=== PATIENT | male | born 1960 | race Caucasian/White ===

== ENCOUNTER 2017-07-17 09:25 | Inpatient (IN) | payer SELFPAY ==
[~2017-07-17] VITALS: Ht 188 cm; Wt 125.8 kg
[2017-07-17] VITALS (21 sets, daily range): BP systolic 110–156; BP diastolic 81–116
[~2017-07-17 09:25] MED LIST: AMIODARONE IV SOLUTION 200 ML IV ONE; MONT10TA21 PO; NEOM10DR6 RIGHT EAR; TRAM50TA2 PO
[2017-07-17] MEDS ORDERED: CATHETER FLUSH 10 ML SYR IV PRN (10:00)
[2017-07-17] MEDS ORDERED: RT-ALBUTEROL/IPRATROPIUM 3 ML (DUONEB) VIAL IH PRN (10:00)
[2017-07-17] MEDS ORDERED: RT-ALBUTEROL/IPRATROPIUM 3 ML (DUONEB) VIAL IH SCH (10:00)
--- NOTE | 2017-07-17 10:21 | Diagnostic Imaging Report ---
INDICATION: Tachycardia, hypoxia. TIME OF EXAM: 10:04 AM No prior studies available for comparison. FINDINGS: There is increased density in the left base obscuring left hemidiaphragm suggestive of left basilar pneumonia. The right lung is clear. No significant effusion is seen. IMPRESSION: Findings suggestive of left basilar pneumonia. Dictated by: Dictated on workstation # [id number]
[2017-07-17] MEDS ORDERED: RT-ALBUINH IH (10:22)
[2017-07-17] MEDS ORDERED: FLUT1BLS IH (10:22)
[2017-07-17] MEDS ORDERED: GUAI100L13 PO (10:22)
[2017-07-17] MEDS ORDERED: ACET-2267 PO (10:23)
[2017-07-17] MEDS ORDERED: PRD10T PO (10:27)
[2017-07-17 11:13] LABS: BASOPHILS % (AUTO) 0 % (0-10); EOSINOPHILS % (AUTO) 0 % (0-10); HEMATOCRIT 55 % (40-54); HEMOGLOBIN 18.2 G/DL (13.3-17.7); LYMPHOCYTES # (AUTO) 1.4 X 10^3 (1.0-4.0); LYMPHOCYTES % (AUTO) 13 % (12-44); MEAN CORPUSCULAR HEMOGLOBIN 29 PG (25-34); MEAN CORPUSCULAR HGB CONC 33 G/DL (32-36); MEAN CORPUSCULAR VOLUME 87 FL (80-99); MEAN PLATELET VOLUME 11.3 FL (7.4-10.4); MONOCYTES # (AUTO) 0.5 X 10^3 (0.0-1.0); MONOCYTES % (AUTO) 4 % (0-12); NEUTROPHILS # (AUTO) 8.8 X 10^3 (1.8-7.8); NEUTROPHILS % (AUTO) 82 % (42-75); PLATELET COUNT 207 10^3/uL (130-400); RED BLOOD COUNT 6.32 10^6/uL (4.35-5.85); RED CELL DISTRIBUTION WIDTH 16.2 % (10.0-14.5); WHITE BLOOD COUNT 10.7 10^3/uL (4.3-11.0)
[2017-07-17] MEDS ORDERED: meTOprolol 5 MG/5 ML (LOPRESSOR) VIAL IV NR (11:15)
--- NOTE | 2017-07-17 11:15 | History & Physicial (CHS) ---
HPI History of Present Illness: 56 year old male who was seen this morning in Pulmonology Clinic by Dr. Longo and found to be tachycardic with a HR in the 150's and hypoxic with sats in the 70's on room air. The patient had been referred to see Dr. Longo after being seen by Lg Tavera APRN on Friday and noted to be complaining of increased sinus drainage and difficulty breathing. Documented vital signs include HR 133 and O2 sat 83% on room air. Patient states he had his sat checked by multiple monitors and that several of them had sats in the 70's, but "they found one that would read in the 80's". Pt had home oxygen ordered, but reports that he did not pick it up "because he is planning on going back to work". Patient reports that he is actually feeling much better today than he has in the last few days. He denies chest pain or pressure, feeling more short of breath than normal, fever, chills, productive cough. Denies cardiac history, other than reports he was briefly on a diuretic for HTN, but it was stopped because he didn't need it any more. He reports that he is quite healthy and that he "got COPD from having his neck surgery in 1997". Patient reports he had a cervical fusion and he was a difficult intubation and has had trouble breathing since then. Patient is a still currently a smoker, but states that he has to "smoke a few a day" in order to be able to breathe. Clinic notes also reveal a remote history of IV drug abuse. Source: patient, RN/MD, RN notes reviewed, old records, spouse Exam Limitations: no limitations Date seen by provider: Jul 17, 2017 Time Seen by Provider: 09:50 Attending Physician Jessica Sanchez DO [facility] [place] Consult Dr. Longo, Pulmonology Dr. Rankin, Cardiology Date of Admission Jul 17, 2017 at 09:25 Home Medications Home Medications Reviewed patient Home Medication Reconciliation performed by pharmacy medication reconciliations spring manufacturing set up technician and/or nursing. Patients Allergies have been reviewed. Allergies Coded Allergies: gabapentin (Verified Adverse Reaction, Mild, UPSET STOMACH, 07/17/17) ARJ-[id number]-Jyjbys Hx Patient Social History Marrital Status: Living Status: lives at home with Employed/Student: unemployed Alcohol Use: Denies Use Recreational Drug Use: No (history of previous IV drug use in the remote past) Smoking Status: Current Everyday Smoker Type Used: Cigarettes, Electronic/Vapor Recent Foreign Travel: No Contact w/other who traveled: No Recent Hopitalizations: No Recent Infectious Disease Expo: No Physical Abuse Screen: No Sexual Abuse: No Immunizations Up To Date Tetanus Booster (TDap): Unknown Past Medical History Remote history of IV drug abuse COPD Tobacco abuse Family Medical History Significant Family History: Heart Disease, Cancer, CAD Under 55 Years Old Review of Systems (CHC) Constitutional: no symptoms reported EENTM: no symptoms reported Respiratory: see HPI, dyspnea on exertion, wheezing Cardiovascular: no symptoms reported, No chest pain, No edema, No Hx of Intervention, No palpitations Gastrointestinal: no symptoms reported Genitourinary: no symptoms reported Musculoskeletal: no symptoms reported Skin: no symptoms reported Psychiatric/Neurological: No Symptoms Reported Reviewed Test Results Reviewed Test Results Lab Laboratory Tests Test 07/17/17 10:48 07/17/17 15:00 07/17/17 15:25 07/17/17 15:30 Range/Units White Blood Count 10.7 4.3-11.0 10^3/uL Red Blood Count 6.32 H 4.35-5.85 10^6/uL Hemoglobin 18.2 H 13.3-17.7 G/DL Hematocrit 55 H 40-54 % Mean Corpuscular Volume 87 80-99 FL Mean Corpuscular Hemoglobin 29 25-34 PG Mean Corpuscular Hemoglobin Concent 33 32-36 G/DL Red Cell Distribution Width 16.2 H 10.0-14.5 % Platelet Count 207 130-400 10^3/uL Mean Platelet Volume 11.3 H 7.4-10.4 FL Neutrophils (%) (Auto) 82 H 42-75 % Lymphocytes (%) (Auto) 13 12-44 % Monocytes (%) (Auto) 4 0-12 % Eosinophils (%) (Auto) 0 0-10 % Basophils (%) (Auto) 0 0-10 % Neutrophils # (Auto) 8.8 H 1.8-7.8 X 10^3 Lymphocytes # (Auto) 1.4 1.0-4.0 X 10^3 Monocytes # (Auto) 0.5 0.0-1.0 X 10^3 Eosinophils # (Auto) 0.0 0.0-0.3 10^3/uL Basophils # (Auto) 0.0 0.0-0.1 10^3/uL Sodium Level 139 135-145 MMOL/L Potassium Level 4.1 3.6-5.0 MMOL/L Chloride Level 101 98-107 MMOL/L Carbon Dioxide Level 30 21-32 MMOL/L Anion Gap 8 5-14 MMOL/L Blood Urea Nitrogen 9 7-18 MG/DL Creatinine 0.88 0.60-1.30 MG/DL Estimat Glomerular Filtration Rate > 60 BUN/Creatinine Ratio 10 Glucose Level 125 H 70-105 MG/DL Lactic Acid Level 0.95 0.50-2.00 MMOL/L Calcium Level 9.1 8.5-10.1 MG/DL Phosphorus Level 2.9 2.3-4.7 MG/DL Magnesium Level 2.1 1.8-2.4 MG/DL Total Bilirubin 0.7 0.1-1.0 MG/DL Aspartate Amino Transf (AST/SGOT) 26 5-34 U/L Alanine Aminotransferase (ALT/SGPT) 39 0-55 U/L Alkaline Phosphatase 62 40-136 U/L Troponin I < 0.30 <0.30 NG/ML B-Type Natriuretic Peptide 72.7 <100.0 PG/ML Total Protein 7.2 6.4-8.2 GM/DL Albumin 4.1 3.2-4.5 GM/DL Blood Gas Puncture Site RIGHT RADIAL LEFT RADIAL Blood Gas Patient Temperature 98.2 98.0 Arterial Blood pH 7.32 *L 7.30 *L 7.37-7.43 Arterial Blood Partial Pressure CO2 73 *H 69 H 35-45 MMHG Arterial Blood Partial Pressure O2 37 *L 74 L 79-93 MMHG Arterial Blood HCO3 36 H 33 H 23-27 MMOL/L Arterial Blood Total CO2 38.6 H 35.2 H 21.0-31.0 MMOL/L Arterial Blood Oxygen Saturation 67 L 94 94-100 % Arterial Blood Base Excess 10.1 H 6.8 H -2.5-2.5 MMOL/L Jair Test POSITIVE POSITIVE Blood Gas Ventilator Setting NO NO Blood Gas Inspired Oxygen 4L 4L Urine Color YELLOW Urine Clarity CLEAR Urine pH 6 5-9 Urine Specific [place] 1.015 L 1.016-1.022 Urine Protein 2+ H NEGATIVE Urine Glucose (UA) NEGATIVE NEGATIVE Urine Ketones NEGATIVE NEGATIVE Urine Nitrite NEGATIVE NEGATIVE Urine Bilirubin NEGATIVE NEGATIVE Urine Urobilinogen NORMAL NORMAL MG/DL Urine Leukocyte Esterase NEGATIVE NEGATIVE Urine RBC (Auto) NEGATIVE NEGATIVE Urine RBC NONE /HPF Urine WBC NONE /HPF Urine Crystals NONE /LPF Urine Bacteria NONE /HPF Urine Casts NONE /LPF Urine Mucus SMALL H /LPF Urine Culture Indicated NO Test 07/17/17 15:42 07/17/17 18:44 Range/Units Troponin I < 0.30 <0.30 NG/ML Blood Gas Puncture Site LEFT RADIAL Blood Gas Patient Temperature 98.5 Arterial Blood pH 7.34 *L 7.37-7.43 Arterial Blood Partial Pressure CO2 70 H 35-45 MMHG Arterial Blood Partial Pressure O2 101 H 79-93 MMHG Arterial Blood HCO3 37 H 23-27 MMOL/L Arterial Blood Total CO2 38.8 H 21.0-31.0 MMOL/L Arterial Blood Oxygen Saturation 98 94-100 % Arterial Blood Base Excess 10.7 H -2.5-2.5 MMOL/L Jair Test POSITIVE Blood Gas Ventilator Setting NO Blood Gas Inspired Oxygen 50% BIPAP Radiology Date of Exam: 07/17/17 CHEST 1 VIEW, AP/PA ONLY INDICATION: Tachycardia, hypoxia. TIME OF EXAM: 10:04 AM No prior studies available for comparison. FINDINGS: There is increased density in the left base obscuring left hemidiaphragm suggestive of left basilar pneumonia. The right lung is clear. No significant effusion is seen. IMPRESSION: Findings suggestive of left basilar pneumonia. EKG: Sinus tachycardia, consistent with telemetry that shows sinus tach with rate in the 140's Physical Exam-(CHC) Physical Exam Vital Signs VS - Last 72 Hours, by Label 07/17/17 07/17/17 07/17/17 07/17/17 09:30 09:30 09:35 09:45 Temp 97.8 Pulse 148 149 148 Resp 23 B/P (MAP) 126/114 (118) 153/105 (121) Pulse Ox 92 94 O2 Delivery Nasal Cannula Nasal Cannula Nasal Cannula O2 Flow Rate 4.00 4.00 4.00 07/17/17 07/17/17 07/17/17 07/17/17 10:00 10:15 10:30 11:00 Pulse 147 147 151 147 Resp 25 25 25 19 B/P (MAP) 136/104 (115) 156/116 (129) 150/114 (126) 127/108 (114) Pulse Ox 94 94 94 93 O2 Delivery Nasal Cannula Nasal Cannula Nasal Cannula Nasal Cannula O2 Flow Rate 4.00 4.00 4.00 4.00 07/17/17 07/17/17 07/17/17 07/17/17 11:20 12:00 12:00 13:00 Temp 97.6 Pulse 146 147 Resp 25 26 B/P (MAP) 123/88 (100) 119/88 (98) Pulse Ox 98 93 90 O2 Delivery Nasal Cannula Nasal Cannula Nasal Cannula Nasal Cannula O2 Flow Rate 4.00 4.00 4.00 4.00 07/17/17 07/17/17 07/17/17 07/17/17 13:00 14:00 15:00 15:45 Pulse 147 147 146 Resp 28 26 B/P (MAP) 125/94 (104) 123/102 (109) Pulse Ox 91 93 O2 Delivery Nasal Cannula Nasal Cannula Nasal Cannula O2 Flow Rate 4.00 4.00 4.00 07/17/17 07/17/17 07/17/17 07/17/17 15:55 16:00 16:09 17:00 Temp 98.0 Pulse 154 152 Resp 25 13 B/P (MAP) 125/87 (100) 120/89 (99) Pulse Ox 93 91 O2 Delivery Nasal Cannula Nasal Cannula Nasal Cannula Nasal Cannula O2 Flow Rate 4.00 4.00 4.00 4.00 07/17/17 07/17/17 17:28 18:00 Pulse 149 146 Resp 22 8 B/P (MAP) 114/87 (96) Pulse Ox 96 93 O2 Delivery Nasal Cannula O2 Flow Rate 50.00 4.00 Capillary Refill : General Appearance: WD/WN, no apparent distress, obese Eyes: Bilateral Eye Normal Inspection, Bilateral Eye PERRL, Bilateral Eye EOMI HEENT: PERRL/EOMI, TMs normal, No scleral icterus (R), No scleral icterus (L), No photophobia Neck: non-tender, full range of motion, supple, normal inspection Respiratory: chest non-tender, decreased breath sounds, wheezing Cardiovascular: normal peripheral pulses, regular rate, rhythm, no edema, no gallop, no murmur, tachycardia Peripheral Pulses: 2+ Dorsalis Pedis (R), 2+ Left Dors-Pedis (L), 2+ Radial Pulses (R), 2+ Radial Pulses (L) Gastrointestinal: normal bowel sounds, non tender, soft, no organomegaly, no pulsatile mass, No guarding, No rebound Rectal: deferred Back: no CVA tenderness, no vertebral tenderness Extremities: normal range of motion, non-tender, normal inspection, no pedal edema, no calf tenderness, slow capillary refill Neurologic/Psychiatric: masticator II-XII nml as tested, no motor/sensory deficits, alert, normal mood/affect, oriented x 3 Skin: warm/dry, pallor Lymphatic: no adenopathy Assessment/Plan Assessment/Plan Admission Dx acute on chronic respiratory failure hypoxia tachyarrhythmia hypertension copd pneumonia tobacco abuse obesity Admission Status: Inpatient Order (span 2 midnights) Reason for Inpatient Admission: dependence on supplemental oxygen need for medical stabilization and treatment Assessment & Plan acute on chronic respiratory failure 07/17 -admit to ICU -consult to Dr. Longo for pulmonary management hypoxia 07/17 -consult to Dr. Longo for pulmonary management tachyarrhythmia 07/17 -consult to Dr. Rankin for cardiac management -currently sinus tach, will give 5 mg metoprolol and attempt rate control hypertension 07/17 -metoprolol given for rate control, will see if that brings pressure down -cardiology consult as above -asymptomatic copd 07/17 -consult to Dr. Longo as above pneumonia 07/17 -evidence suggestive of PNA on CXR -empiric abx started and will trend labs tobacco abuse 07/17 -cessation recommended obesity The patient is critically ill and requires an ICU level of care at this time for management of his resp failure and tachyarrthmia. Will require more than two nights of inpatient care for medical stabilization and treatment. Copy Copies To 1: [facility]/JESSICA MONTES DO Jul 17, 2017 11:15
[2017-07-17] MEDS: methylPREDNISolone 40 MG/ML (Solu-MEDROL) VIAL IV SCH ×3 (11:23→23:38)
[2017-07-17 11:35] LABS: ALANINE AMINOTRANSFERASE 39 U/L (0-55); ALBUMIN 4.1 GM/DL (3.2-4.5); ALKALINE PHOSPHATASE 62 U/L (40-136); BILIRUBIN,TOTAL 0.7 MG/DL (0.1-1.0); BUN/CREATININE RATIO 10; CALCIUM 9.1 MG/DL (8.5-10.1); CARBON DIOXIDE 30 MMOL/L (21-32); CHLORIDE 101 MMOL/L (98-107); CREATININE SERUM 0.88 MG/DL (0.60-1.30); GFR ESTIMATED > 60; GLUCOSE 125 MG/DL (70-105); MAGNESIUM 2.1 MG/DL (1.8-2.4); PHOSPHORUS 2.9 MG/DL (2.3-4.7); POTASSIUM 4.1 MMOL/L (3.6-5.0); SODIUM 139 MMOL/L (135-145); TOTAL PROTEIN 7.2 GM/DL (6.4-8.2)
[2017-07-17] MEDS: VERAPAMIL 5 MG/2 ML (CALAN) VIAL IV SCH ×5 (13:18→23:38)
[2017-07-17] MEDS: AMIODARONE IV SOLUTION 200 ML IV SCH ×2 (13:18→19:20)
[2017-07-17] MEDS: CATHETER FLUSH 10 ML SYR IV SCH ×2 (14:00→20:30)
[2017-07-17] MEDS ORDERED: RT-ALBUTEROL SULF 2.5 MG/3 ML PRE-MIX VIAL IH SCH (14:30)
[2017-07-17 15:10] LABS: ABG BASE EXCESS 10.1 MMOL/L (-2.5-2.5); ABG OXYGEN SATURATION 67 % (94-100); ABG TCO2 38.6 MMOL/L (21.0-31.0)
[2017-07-17 15:16] LABS: ABG PCO2 73 MMHG (35-45); ABG PH 7.32 (7.37-7.43); ABG PO2 37 MMHG (79-93); ALLENS TEST POSITIVE; INSPIRED O2 4L; PATIENT TEMP 98.2; VENTILATOR NO
[2017-07-17 15:40] LABS: ABG BASE EXCESS 6.8 MMOL/L (-2.5-2.5); ABG OXYGEN SATURATION 94 % (94-100); ABG PCO2 69 MMHG (35-45); ABG PO2 74 MMHG (79-93); ABG TCO2 35.2 MMOL/L (21.0-31.0)
[2017-07-17 15:45] LABS: ALLENS TEST POSITIVE; INSPIRED O2 4L; VENTILATOR NO
[2017-07-17] MEDS ORDERED: INFLUENZA TRIvalent 2017-2018 0.5 ML/45 MCG SYR IM ONE (15:45)
[2017-07-17 15:58] LABS: BILIRUBIN,URINE NEGATIVE (NEGATIVE); CLARITY,URINE CLEAR; COLOR,URINE YELLOW; GLUCOSE, URINE (UA) NEGATIVE (NEGATIVE); KETONES,URINE NEGATIVE (NEGATIVE); LEUKOCYTE ESTERASE ,URINE NEGATIVE (NEGATIVE); NITRITE,URINE NEGATIVE (NEGATIVE); PH,URINE 6 (5-9); PROTEIN,URINE 2+ (NEGATIVE); UROBILINOGEN,URINE NORMAL (NORMAL)
--- NOTE | 2017-07-17 16:55 | Consultation-Cardiology ---
HPI-Cardiology Cardiology Consultation: Date of Consultation 07/17/17 Date of Admission Attending Physician Jessica Sanchez DO Admitting Physician [place] Consulting Physician Marisol RANKIN MD HPI: Time Seen by Provider: 12:00 Chief Complaint: Shortness of breath, tachycardia This is a 56-year-old gentleman who is a patient of [facility] and Dr. Longo. He was directly admitted from Dr. Longo's office for significant shortness of breath. The patient has history of active smoking and COPD. Patient denies significant fever. He also denies any significant cardiac history. He has history of hypertension. His shortness of breath started a few days ago. Significant orthopnea. No significant weight gain. Denies any chest pain, palpitation, syncope or near syncope. Patient also denied any significant palpitations recently. Review of Systems-Cardiology Review of Systems Constitutional: No As described under HPI, No no symptoms reported, No chills, No fever, No lightheadedness, No malaise, No tiredness, No weight loss, No weight gain, No other Eyes: No As described under HPI, No no symptoms reported, No blindness, No blurred vision, No contact lenses, No drainage, No decreased acuity, No foreign body sensation, No glasses, No inflammation, No pain, No photophobia, No previous injury, No shadows, No tunnel vision, No other, No vision change Ears/Nose/Throat: No As described under HPI, No no symptoms reported, No chronic hearing loss, No epistaxis, No ear discharge, No ear pain, No loose teeth, No mouth pain, No mouth swelling, No nasal drainage, No nose pain, No recent hearing loss, No throat pain, No throat swelling, No ulcerations, No other Respiratory: orthopnea, shortness of breath Cardiovascular: No no symptoms reported, No As described under HPI, No chest pain, No edema, No irregular heart rate, No lightheadedness, palpitations, No syncope, No other Gastrointestinal: No no symptoms reported, No As described under HPI, No abdomen distended, No abdominal pain, No blood streaked bowels, No constipation , No diarrhea, No difficulty swallowing, No nausea, No poor appetite, No poor fluid intake, No rectal bleeding, No vomiting, No other, No nausea/vomiting/ diarrhea, No stool coloration changes Genitourinary: No no symptoms reported, No As described under HPI, No burning, No dysuria, No discharge, No frequency, No flank pain, No hematuria, No incontinence, No pain, No urgency, No other, No urine frequency changes, No urine coloration changes Musculoskeletal: No no symptoms reported, No As describe under HPI, No back pain, No gout, No joint pain, No joint swelling, No muscle pain, No muscle stiffness, No neck pain, No other Skin: No no symptoms reported, No As described under HPI, No change in color, No change in hair/nails, No dryness, No lesions, No lumps, No rash, No other, No skin related problems, No ulcerations, No rash on exposed areas, No ulcerations on exposed areas Psychiatric/Neurological: No no symptoms reported, No As described under HPI, No anxiety, No depression, No emotional problems, No headache, No numbness, No pre-existing deficit, No seizure, No tingling, No tremors, No weakness, No other , No focal weakness, No syncope Hematologic: No no symptoms reported, No As described under HPI, No anemia, No blood clots, No easy bleeding, No easy bruising, No swollen glands, No other, No bleeding abnormalities [id number] Hx Patient Social History Alcohol Use: Denies Use Recreational Drug Use: No Smoking Status: Current Everyday Smoker Type Used: Cigarettes Recent Foreign Travel: No Recent Infectious Disease Expo: No Physical Abuse Screen: No Sexual Abuse: No Past Medical History PMH As described under Assessment. Allergies and Home Medications Allergies Coded Allergies: gabapentin (Verified Adverse Reaction, Mild, UPSET STOMACH, 07/17/17) Home Medications Acetaminophen 500 Mg Tablet, 500-1,000 MG PO Q6H PRN for PAIN-MILD, (Reported) Albuterol Sulfate 1 Puff Puff, 2 PUFF IH Q4H PRN for SHORTNESS OF BREATH, ( Reported) 1 PUFF = 90 MCG Fluticasone/Vilanterol 1 Each Blst.w.dev, 1 PUFF IH DAILY, (Reported) Guaifenesin 100 Mg/5 Ml Liquid, 10 ML PO Q4H PRN for COUGH, (Reported) Prednisone 10 Mg Tab, 10 MG PO UD, (Reported) TAKE 4 TABLETS DAILY X 4 DAYS, THEN TAKE 3 TABS DAILY X 3 DAYS, THEN TAKE 2 TABS DAILY X 2 DAYS THEN TAKE 1 TAB DAILY FILLED 07-14-17 Patient Home Medication List Home Medication List Reviewed: Yes Physical Exam-Cardiology Physical Exam Vital Signs/I&O Vital Sign - Last 12Hours 07/17/17 07/17/17 07/17/17 07/17/17 09:30 09:30 09:35 09:45 Temp 97.8 Pulse 148 149 148 Resp 23 B/P (MAP) 126/114 (118) 153/105 (121) Pulse Ox 92 94 O2 Delivery Nasal Cannula Nasal Cannula Nasal Cannula O2 Flow Rate 4.00 4.00 4.00 07/17/17 07/17/17 07/17/17 07/17/17 10:00 10:15 10:30 11:00 Pulse 147 147 151 147 Resp 25 B/P (MAP) 136/104 (115) 156/116 (129) 150/114 (126) 127/108 (114) Pulse Ox 94 94 94 93 O2 Delivery Nasal Cannula Nasal Cannula Nasal Cannula Nasal Cannula O2 Flow Rate 4.00 4.00 4.00 4.00 07/17/17 07/17/17 07/17/17 07/17/17 11:20 12:00 13:00 13:00 Pulse 146 147 147 Resp B/P (MAP) 123/88 (100) 119/88 (98) Pulse Ox 98 93 90 O2 Delivery Nasal Cannula Nasal Cannula Nasal Cannula O2 Flow Rate 4.00 4.00 4.00 07/17/17 07/17/17 07/17/17 07/17/17 14:00 15:00 15:45 15:55 Temp 98.0 Pulse 147 146 Resp B/P (MAP) 125/94 (104) 123/102 (109) Pulse Ox 91 93 O2 Delivery Nasal Cannula Nasal Cannula Nasal Cannula Nasal Cannula O2 Flow Rate 4.00 4.00 4.00 4.00 07/17/17 16:09 O2 Delivery Nasal Cannula O2 Flow Rate 4.00 Capillary Refill : Constitutional: No appears stated age, AAO x 3, No apparent distress, No PERRL , No well-developed, No well-nourished, No other HEENT: PERRL, No normal ENT inspection, No TMs normal, No pharynx normal, No scleral icterus (R), No scleral icterus (L), No pale conjunctivae (R), No pale conjunctivae (L), No photophobia, No TM abnormal (R), No TM abnormal (L), No pharyngeal erythema, No tonsillar exudate, No other, No discharge, No EOMI, hearing is well preserved, No hard of hearing, oral hygience is good, No ulceration, No xanthelasmas are seen Neck: No non-tender, No full range of motion, No supple, No normal inspection, No carotid bruit, No limited range of motion, No lymphadenopathy (R), No lymphadenopathy (L), No tender lateral, No tender midline, No thyromegaly, No other, carotid pulses are 2 + bilaterally, No with good upstrokes Respiratory: accessory muscle use, No respiratory distress, No chest tender, No chest expansion is symmetric, chest is bilaterally symmetric, No lungs clear to percussion, No lungs clear to auscultation, No crackles, No rhonchi, No rales , No stridor, wheezing, No pleural rub, No other Cardiovascular: regular rate-rhythm, No irregularly irregular, No extra beats, No parasternal heave is noted, No JVD, No edema, No bradycardia, tachycardia, No point of maximal impulse, No cardiac thrills are palpable, S1 and S2, No gallop/S3, No gallop/S4, No diastolic murmur, No systolic murmur, No friction rub, No click, No other Gastrointestinal: No tender, No soft, No round, No distended, No pulsatile mass , No organomegaly, No guarding, No rebound, No tenderness, No hernia, No mass, No audible bowel sounds, No abnormal bowel sounds, No abdominal bruits, No spleenomegaly, No other Rectal: deferred Extremities: normal range of motion, non-tender, normal inspection, No pedal edema, No calf tenderness, No normal capillary refill, No pelvis stable, No calf tenderness, No inflammation, No pedal edema, No slow capillary refill, No swelling, No other, No abrasion, No clubbing, No cyanosis, No ecchymosis, No laceration, No no lower extremity edema bilateral, No significant edema, No tenderness, No wound Neurologic/Psychiatric: No pump press operator II-XII nml as tested, No no motor/sensory deficits, alert, normal mood/affect, oriented x 3, No abnormal cerebellar tests , No abnormal pump press operator II-XII, No abnormal gait, No aphasia, No EOM palsy, No facial droop, No motor weakness, No sensory deficit, No depressed affect, No disoriented x 3, No other, No grossly intact, power is 5/5 both on sides Skin: No normal color, No warm/dry, No cyanosis, No cool, No diaphoresis, No damp, No ecchymosis, No jaundice, No mottled, No pallor, No rash, No tattoos/ piercings, No ulcerations, No rash on exposed areas, No ulcerations on exposed areas, No other Data Review Labs Laboratory Tests 07/17/17 10:48: White Blood Count 10.7, Red Blood Count 6.32H, Hemoglobin 18.2H, Hematocrit 55H , Mean Corpuscular Volume 87, Mean Corpuscular Hemoglobin 29, Mean Corpuscular Hemoglobin Concent 33, Red Cell Distribution Width 16.2H, Platelet Count 207, Mean Platelet Volume 11.3H, Neutrophils (%) (Auto) 82H, Lymphocytes (%) (Auto) 13, Monocytes (%) (Auto) 4, Eosinophils (%) (Auto) 0, Basophils (%) (Auto) 0, Neutrophils # (Auto) 8.8H, Lymphocytes # (Auto) 1.4, Monocytes # (Auto) 0.5, Eosinophils # (Auto) 0.0, Basophils # (Auto) 0.0, Sodium Level 139, Potassium Level 4.1, Chloride Level 101, Carbon Dioxide Level 30, Anion Gap 8, Blood Urea Nitrogen 9, Creatinine 0.88, Estimat Glomerular Filtration Rate > 60, BUN/ Creatinine Ratio 10, Glucose Level 125H, Lactic Acid Level 0.95, Calcium Level 9.1, Phosphorus Level 2.9, Magnesium Level 2.1, Total Bilirubin 0.7, Aspartate Amino Transf (AST/SGOT) 26, Alanine Aminotransferase (ALT/SGPT) 39, Alkaline Phosphatase 62, Troponin I < 0.30, B-Type Natriuretic Peptide 72.7, Total Protein 7.2, Albumin 4.1 07/17/17 15:00: Blood Gas Puncture Site RIGHT RADIAL, Blood Gas Patient Temperature 98.2, Arterial Blood pH 7.32*L, Arterial Blood Partial Pressure CO2 73*H, Arterial Blood Partial Pressure O2 37*L, Arterial Blood HCO3 36H, Arterial Blood Total CO2 38.6H, Arterial Blood Oxygen Saturation 67L, Arterial Blood Base Excess 10.1H, Jair Test POSITIVE, Blood Gas Ventilator Setting NO, Blood Gas Inspired Oxygen 4L 07/17/17 15:25: Blood Gas Puncture Site LEFT RADIAL, Blood Gas Patient Temperature 98.0, Arterial Blood pH 7.30*L, Arterial Blood Partial Pressure CO2 69H, Arterial Blood Partial Pressure O2 74L, Arterial Blood HCO3 33H, Arterial Blood Total CO2 35.2H, Arterial Blood Oxygen Saturation 94, Arterial Blood Base Excess 6.8H , Jair Test POSITIVE, Blood Gas Ventilator Setting NO, Blood Gas Inspired Oxygen 4L 07/17/17 15:30: Urine Color YELLOW, Urine Clarity CLEAR, Urine pH 6, Urine Specific [place] 1.015L, Urine Protein 2+H, Urine Glucose (UA) NEGATIVE, Urine Ketones NEGATIVE, Urine Nitrite NEGATIVE, Urine Bilirubin NEGATIVE, Urine Urobilinogen NORMAL, Urine Leukocyte Esterase NEGATIVE, Urine RBC (Auto) NEGATIVE, Urine RBC NONE, Urine WBC NONE, Urine Crystals NONE, Urine Bacteria NONE, Urine Casts NONE, Urine Mucus SMALLH, Urine Culture Indicated NO 07/17/17 15:42: Troponin I < 0.30 ECG Impression ECG Comment Atrial flutter with 2-1 AV block. A/P-Cardiology Assessment/Admission Diagnosis Shortness of breath, COPD exacerbation, Possible pneumonia, Tachycardia, atrial flutter, Active smoking Plan Respiratory treatment, IV antibiotics, prednisone for COPD exacerbation and pneumonia. Patient is hypoxic with oxygen saturation of 90 percent on nasal cannula. Chest x-ray shows possible basilar pneumonia. No significant CHF. Patient is euvolemic and unlikely in congestive heart failure. Very low BNP. Echocardiogram shows normal LV function significant valvular heart disease. Rule out ACS with serial troponin. Atrial flutter with 2-1 AV block. Started on amiodarone infusion and verapamil IV every 3 hours. If continues to be in atrial flutter until tomorrow will likely perform transesophageal echocardiogram with cardioversion. We'll also start Eliquis today. Smoking cessation was strongly recommended. At length with the patient and family. Thank you for your consultation. Please call me if you have any questions. Chino Rankin MD, FACP, FACC, FSCAI, FHRS, CCDS Interventional Cardiology Cardiac Electrophysiology Vascular Medicine and Endovascular Interventions Clinical Quality Measures DVT/VTE Risk/Contraindication: Risk Factor Score Per Nursin RFS Level Per Nursing on Admit: 4+=Very High Marisol RANKIN MD Jul 17, 2017 4:55 pm
[2017-07-17 18:54] LABS: ABG BASE EXCESS 10.7 MMOL/L (-2.5-2.5); ABG OXYGEN SATURATION 98 % (94-100); ABG PCO2 70 MMHG (35-45); ABG PO2 101 MMHG (79-93); ABG TCO2 38.8 MMOL/L (21.0-31.0)
[2017-07-17 18:56] LABS: ABG PH 7.34 (7.37-7.43); ALLENS TEST POSITIVE; INSPIRED O2 50% BIPAP; PATIENT TEMP 98.5; VENTILATOR NO
[2017-07-17] MEDS ORDERED: AMIODARONE IV SOLUTION 200 ML IV ONE ×2 (19:40→23:30)
[2017-07-17] MEDS: APIXABAN 5 MG (ELIQUIS) TABLET PO SCH (20:30)
[2017-07-17] MEDS: AZITHROMYCIN INJECTION 500 MG in NS (IVPB) 250 ML IV SCH (20:30)
[2017-07-17] MEDS ORDERED: RT-LEVALBUTEROL (XOPENEX) 1.25 MG/3 ML NEB NON-FORMULARY INH SCH (22:00)
[2017-07-17] MEDS ORDERED: meTOprolol 5 MG/5 ML (LOPRESSOR) VIAL IV ONE (23:30)
[2017-07-18] VITALS (24 sets, daily range): BP systolic 99–150; BP diastolic 66–98
[2017-07-18] MEDS: VERAPAMIL 5 MG/2 ML (CALAN) VIAL IV SCH ×3 (03:10→09:04)
[2017-07-18 03:49] LABS: ABG BASE EXCESS 6.8 MMOL/L (-2.5-2.5); ABG OXYGEN SATURATION 98 % (94-100); ABG PCO2 64 MMHG (35-45); ABG PO2 100 MMHG (79-93); ABG TCO2 34.5 MMOL/L (21.0-31.0)
[2017-07-18 03:52] LABS: ABG PH 7.33 (7.37-7.43); ALLENS TEST YES-POS; INSPIRED O2 40%; VENTILATOR NO
[2017-07-18 03:53] LABS: PATIENT TEMP 98.9
[2017-07-18 04:17] LABS: BASOPHILS % (AUTO) 0 % (0-10); EOSINOPHILS % (AUTO) 0 % (0-10); HEMATOCRIT 55 % (40-54); HEMOGLOBIN 18.2 G/DL (13.3-17.7); LYMPHOCYTES # (AUTO) 1.3 X 10^3 (1.0-4.0); LYMPHOCYTES % (AUTO) 11 % (12-44); MEAN CORPUSCULAR HEMOGLOBIN 29 PG (25-34); MEAN CORPUSCULAR HGB CONC 33 G/DL (32-36); MEAN CORPUSCULAR VOLUME 89 FL (80-99); MEAN PLATELET VOLUME 11.1 FL (7.4-10.4); MONOCYTES # (AUTO) 0.7 X 10^3 (0.0-1.0); MONOCYTES % (AUTO) 5 % (0-12); NEUTROPHILS # (AUTO) 10.6 X 10^3 (1.8-7.8); NEUTROPHILS % (AUTO) 84 % (42-75); PLATELET COUNT 215 10^3/uL (130-400); RED BLOOD COUNT 6.23 10^6/uL (4.35-5.85); RED CELL DISTRIBUTION WIDTH 16.9 % (10.0-14.5); WHITE BLOOD COUNT 12.6 10^3/uL (4.3-11.0)
[2017-07-18 04:31] LABS: BUN/CREATININE RATIO 14; CALCIUM 8.9 MG/DL (8.5-10.1); CARBON DIOXIDE 28 MMOL/L (21-32); CHLORIDE 103 MMOL/L (98-107); CREATININE SERUM 0.93 MG/DL (0.60-1.30); GFR ESTIMATED > 60; GLUCOSE 123 MG/DL (70-105); MAGNESIUM 2.4 MG/DL (1.8-2.4); PHOSPHORUS 3.5 MG/DL (2.3-4.7); POTASSIUM 5.1 MMOL/L (3.6-5.0); SODIUM 139 MMOL/L (135-145)
--- NOTE | 2017-07-18 06:04 | Pulmonary Consultation ---
History of Present Illness History of Present Illness Date of Consultation 07/18/17 05:56 Date of Admission Allergies and Home Medications Allergies Coded Allergies: gabapentin (Verified Adverse Reaction, Mild, UPSET STOMACH, 07/17/17) Home Medications Acetaminophen 500 Mg Tablet, 500-1,000 MG PO Q6H PRN for PAIN-MILD, (Reported) Albuterol Sulfate 1 Puff Puff, 2 PUFF IH Q4H PRN for SHORTNESS OF BREATH, ( Reported) 1 PUFF = 90 MCG Fluticasone/Vilanterol 1 Each Blst.w.dev, 1 PUFF IH DAILY, (Reported) Guaifenesin 100 Mg/5 Ml Liquid, 10 ML PO Q4H PRN for COUGH, (Reported) Prednisone 10 Mg Tab, 10 MG PO UD, (Reported) TAKE 4 TABLETS DAILY X 4 DAYS, THEN TAKE 3 TABS DAILY X 3 DAYS, THEN TAKE 2 TABS DAILY X 2 DAYS THEN TAKE 1 TAB DAILY FILLED 07-14-17 Past Ijotayu-Jpneew-Fmefdt Hx Patient Social History Alcohol Use: Denies Use Recreational Drug Use: No (history of previous IV drug use in the remote past) Smoking Status: Current Everyday Smoker Type Used: Cigarettes, Electronic/Vapor Recent Foreign Travel: No Contact w/Someone Who Travel: No Recent Infectious Disease Expo: No Recent Hopitalizations: No Immunizations Up To Date Tetanus Booster (TDap): Unknown Seasonal Allergies Seasonal Allergies: Yes Surgeries History of Surgeries: Yes (NECK FUSION, CARPAL TUNNEL, GANGLION CYST) Respiratory History of Respiratory Disorde: Yes Respiratory Disorders: COPD, Emphysema Cardiovascular History of Cardiac Disorders: Yes (HEART CATH 2000 ([facility])) Neurological History of Neurological Disord: No Reproductive System Hx Reproductive Disorders: No Sexually Transmitted Disease: No HIV/AIDS: No Genitourinary History of Genitourinary Disor: No Gastrointestinal History of Gastrointestinal Di: No Musculoskeletal History of Musculoskeletal Dis: No Endocrine History of Endocrine Disorders: No HEENT History of HEENT Disorders: Yes HEENT Disorders: Cataract Cancer History of Cancer: No Psychosocial History of Psychiatric Problem: No Integumentary History of Skin or Integumenta: No Blood Transfusions History of Blood Disorders: No Adverse Reaction to a Blood Tr: No Family Medical History Significant Family History: Heart Disease, Cancer, CAD Under 55 Years Old Review of Systems Time Seen by Provider: 06:04 Constitutional: Sweats, Weakness, Malaise, No: Fever, Chills, Other Eyes: No: Pain, Vision change, Conjunctivae inflammation, Eyelid inflammation, Other, Redness ENT: No: Ear pain, Ear discharge, Nose pain, Nose discharge, Nose congestion, Mouth pain, Mouth swelling, Throat pain, Throat swelling, Other Respiratory: Shortness of breath, SOB with excertion, Wheezing, Sputum Cardiovascular: Orthopnea, Paroxysmal Noc. Dyspnea, Lt Headedness, No: Chest Pain, Palpitations, Edema, Other Gastrointestinal: No: Nausea, Vomiting, Abdominal Pain, Diarrhea, Constipation , Melena, Hematochezia, Other Genitourinary: No Dysuria, No Frequency, No Incontinence, No Hematuria, No Retention, No Other Neurological: Weakness Exam Exam Vital Signs Date Time Temp Pulse Resp B/P (MAP) Pulse Ox O2 Delivery O2 Flow Rate FiO2 07/18/17 05:00 134 21 123/88 (100) 94 NIV Bilevel 40.00 07/18/17 04:12 134 16 94 40.00 07/18/17 04:00 133 21 115/84 (94) 96 NIV Bilevel 40.00 07/18/17 03:00 133 16 106/81 (89) 93 NIV Bilevel 40.00 07/18/17 02:31 133 16 95 40.00 07/18/17 02:00 131 14 126/92 (103) 94 NIV Bilevel 40.00 07/18/17 01:01 131 22 97 50.00 07/18/17 01:00 131 18 121/79 (93) 97 NIV Bilevel 50.00 07/18/17 01:00 131 07/18/17 00:22 98.4 07/18/17 00:00 130 26 99/79 (86) 95 NIV Bilevel 50.00 07/18/17 00:00 NIV Bilevel 50 07/17/17 23:00 137 11 110/81 (91) 94 NIV Bilevel 50.00 07/17/17 22:00 137 21 116/84 (95) 95 NIV Bilevel 50.00 07/17/17 21:00 138 17 120/90 (100) 95 NIV Bilevel 50.00 07/17/17 20:00 NIV Bilevel 50 07/17/17 20:00 138 16 117/84 (95) 94 NIV Bilevel 50.00 07/17/17 19:52 137 20 94 50.00 07/17/17 19:13 142 24 94 50.00 07/17/17 19:00 144 18 117/85 (96) 94 NIV Bilevel 50.00 07/17/17 19:00 122 07/17/17 18:00 146 8 114/87 (96) 93 Nasal Cannula 4.00 07/17/17 17:28 149 22 96 50.00 07/17/17 17:00 152 13 120/89 (99) 91 Nasal Cannula 4.00 07/17/17 16:09 Nasal Cannula 4.00 07/17/17 16:00 154 25 125/87 (100) 93 Nasal Cannula 4.00 07/17/17 15:55 98.0 Nasal Cannula 4.00 07/17/17 15:45 Nasal Cannula 4.00 07/17/17 15:00 146 26 123/102 (109) 93 Nasal Cannula 4.00 07/17/17 14:00 147 28 125/94 (104) 91 Nasal Cannula 4.00 07/17/17 13:00 147 07/17/17 13:00 147 26 119/88 (98) 90 Nasal Cannula 4.00 07/17/17 12:00 97.6 Nasal Cannula 4.00 07/17/17 12:00 146 25 123/88 (100) 93 Nasal Cannula 4.00 07/17/17 11:20 98 Nasal Cannula 4.00 07/17/17 11:00 147 19 127/108 (114) 93 Nasal Cannula 4.00 07/17/17 10:30 151 25 150/114 (126) 94 Nasal Cannula 4.00 07/17/17 10:15 147 25 156/116 (129) 94 Nasal Cannula 4.00 07/17/17 10:00 147 25 136/104 (115) 94 Nasal Cannula 4.00 07/17/17 09:45 148 23 153/105 (121) 94 Nasal Cannula 4.00 07/17/17 09:35 97.8 Nasal Cannula 4.00 07/17/17 09:30 149 126/114 (118) 92 Nasal Cannula 4.00 07/17/17 09:30 148 I & O 07/18/17 07:00 Intake Total 640 ml Output Total 550 ml Balance 90 ml General Appearance: Anxious, Moderate Distress HEENT: PERRL/EOMI Neck: Full Range of Motion, Non Tender, Supple Respiratory: Decreased Breath Sounds, Wheezing Peripheral Pulses: 2+ Dorsalis Pedis (R), 2+ Left Dors-Pedis (L), 2+ Radial Pulses (R), 2+ Radial Pulses (L) Gastrointestinal: normal bowel sounds, non tender, soft, no organomegaly, no pulsatile mass, No guarding, No rebound Results Lab Laboratory Tests 07/17/17 10:48 07/18/17 03:50 Assessment/Plan Assessment/Plan acute on chronic respiratory failure with hypoxia -Pt is currently requiring noninvasive ventilation -pt will benefit from home vent to mask. He is high risk of recurrent admissions. Atrial flutter -Cardiology consulted severe COPDAE -SVNS increase to Q 4 with xopenex and atrovent -add pulmicort BID -Solumedrol 40 IV Q 6 -oxygen pneumonia -hurt cultures pending -abx tobacco abuse -education obesity with OHS 255 ALBERT KABA DO Jul 18, 2017 06:04
[2017-07-18] MEDS ORDERED: RT-LEVALBUTEROL (XOPENEX) 1.25 MG/3 ML NEB NON-FORMULARY ONE (06:21)
[2017-07-18] MEDS: RT-IPRATROPIUM (ATROVENT) 0.5MG/2.5ML AMP IH SCH ×5 (06:53→21:07)
[2017-07-18] MEDS: RT-BUDESONIDE NEBS 0.5 MG/2ML (PULMICORT) AMP INH SCH ×2 (06:53→21:07)
[2017-07-18] MEDS: CATHETER FLUSH 10 ML SYR IV SCH ×2 (06:59→15:18)
[2017-07-18] MEDS: methylPREDNISolone 40 MG/ML (Solu-MEDROL) VIAL IV SCH ×3 (07:10→17:04)
[2017-07-18] MEDS ORDERED: RT-LEVALBUTEROL (XOPENEX) 1.25 MG/3 ML NEB NON-FORMULARY INH SCH (08:00)
--- NOTE | 2017-07-18 08:19 | Diagnostic Imaging Report ---
INDICATION: Hypoxia. Time of exam 4:38 AM Correlation is made with prior study one day earlier. There continues to be some mild infiltrate or atelectasis in the left base, partially obscuring the left hemidiaphragm. This is similar to yesterday. The right lung is clear. The pulmonary vascularity is normal. No pneumothorax is seen. IMPRESSION: Stable left basilar infiltrate/atelectasis when compared to examination one day earlier. Dictated by: Dictated on workstation # [id number]
--- NOTE | 2017-07-18 08:50 | Progress Note (SOAP) ---
Subjective Subjective/Events-last exam Yesterday afternoon, patient went into aflutter and was placed on amiodarone gtt. Converted to sinus rhythm with controlled rate and was placed on PO cardizem by cardiology. He remains in sinus at this time. On vapotherm since this morning. Patient reports he continues to feel fine and would like to go home. Review of Systems Date Seen by Provider: Jul 18, 2017 Time Seen by Provider: 16:57 General: No Chills, No Night Sweats, No Fatigue HEENT: No Head Aches, No Eye Pain, Dysphasia Pulmonary: Dyspnea, Cough, No Pleuritic Chest Pain Cardiovascular: No: Chest Pain, Palpitations, Edema Gastrointestinal: No: Nausea, Vomiting, Abdominal Pain Genitourinary: No Dysuria, No Incontinence Musculoskeletal: No: back pain, leg pain Neurological: No: Weakness, Numbness, Change in speech, Confusion, Seizures Focused Exam Evaluation Lactate Level Laboratory Tests 07/17/17 10:48: Lactic Acid Level 0.95 Objective Exam Last Set of Vital Signs Vital Signs Date Time Temp Pulse Resp B/P (MAP) Pulse Ox O2 Delivery O2 Flow Rate FiO2 07/18/17 07:29 Vapotherm 20.00 50 07/18/17 07:00 64 07/18/17 06:54 16 93 07/18/17 06:00 123/98 (106) 07/18/17 00:22 98.4 Capillary Refill : I&O Intake and Output 07/18/17 00:00 Intake Total 420 ml Output Total 550 ml Balance -130 ml Intake Oral 420 ml Output Urine Total 550 ml Daily Weight Change No General: Alert, Oriented X3, Cooperative, No Acute Distress HEENT: Atraumatic, EOMI, Mucous Memb Moist/[place] Neck: Supple, No Thyromegaly Lungs: Other (diffuse wheezing and diminished breath sounds) Heart: Regular Rate, Normal S1, Normal S2, No Murmurs Abdomen: Normal Bowel Sounds, Soft, No Tenderness Extremities: No Clubbing, No Cyanosis, No Edema Skin: No Rashes, No Significant Lesion Neuro: Normal Speech, Normal Tone, Sensation Intact, Cranial Nerves 3-12 NL Psych/Mental Status: Mental Status NL, Mood NL Results/Procedures Lab Laboratory Tests 07/17/17 10:48: White Blood Count 10.7, Red Blood Count 6.32H, Hemoglobin 18.2H, Hematocrit 55H , Mean Corpuscular Volume 87, Mean Corpuscular Hemoglobin 29, Mean Corpuscular Hemoglobin Concent 33, Red Cell Distribution Width 16.2H, Platelet Count 207, Mean Platelet Volume 11.3H, Neutrophils (%) (Auto) 82H, Lymphocytes (%) (Auto) 13, Monocytes (%) (Auto) 4, Eosinophils (%) (Auto) 0, Basophils (%) (Auto) 0, Neutrophils # (Auto) 8.8H, Lymphocytes # (Auto) 1.4, Monocytes # (Auto) 0.5, Eosinophils # (Auto) 0.0, Basophils # (Auto) 0.0, Sodium Level 139, Potassium Level 4.1, Chloride Level 101, Carbon Dioxide Level 30, Anion Gap 8, Blood Urea Nitrogen 9, Creatinine 0.88, Estimat Glomerular Filtration Rate > 60, BUN/ Creatinine Ratio 10, Glucose Level 125H, Lactic Acid Level 0.95, Calcium Level 9.1, Phosphorus Level 2.9, Magnesium Level 2.1, Total Bilirubin 0.7, Aspartate Amino Transf (AST/SGOT) 26, Alanine Aminotransferase (ALT/SGPT) 39, Alkaline Phosphatase 62, Troponin I < 0.30, B-Type Natriuretic Peptide 72.7, Total Protein 7.2, Albumin 4.1 07/17/17 15:00: Blood Gas Puncture Site RIGHT RADIAL, Blood Gas Patient Temperature 98.2, Arterial Blood pH 7.32*L, Arterial Blood Partial Pressure CO2 73*H, Arterial Blood Partial Pressure O2 37*L, Arterial Blood HCO3 36H, Arterial Blood Total CO2 38.6H, Arterial Blood Oxygen Saturation 67L, Arterial Blood Base Excess 10.1H, Jair Test POSITIVE, Blood Gas Ventilator Setting NO, Blood Gas Inspired Oxygen 4L 07/17/17 15:25: Blood Gas Puncture Site LEFT RADIAL, Blood Gas Patient Temperature 98.0, Arterial Blood pH 7.30*L, Arterial Blood Partial Pressure CO2 69H, Arterial Blood Partial Pressure O2 74L, Arterial Blood HCO3 33H, Arterial Blood Total CO2 35.2H, Arterial Blood Oxygen Saturation 94, Arterial Blood Base Excess 6.8H , Jair Test POSITIVE, Blood Gas Ventilator Setting NO, Blood Gas Inspired Oxygen 4L 07/17/17 15:30: Urine Color YELLOW, Urine Clarity CLEAR, Urine pH 6, Urine Specific [place] 1.015L, Urine Protein 2+H, Urine Glucose (UA) NEGATIVE, Urine Ketones NEGATIVE, Urine Nitrite NEGATIVE, Urine Bilirubin NEGATIVE, Urine Urobilinogen NORMAL, Urine Leukocyte Esterase NEGATIVE, Urine RBC (Auto) NEGATIVE, Urine RBC NONE, Urine WBC NONE, Urine Crystals NONE, Urine Bacteria NONE, Urine Casts NONE, Urine Mucus SMALLH, Urine Culture Indicated NO 07/17/17 15:42: Troponin I < 0.30 07/17/17 18:44: Blood Gas Puncture Site LEFT RADIAL, Blood Gas Patient Temperature 98.5, Arterial Blood pH 7.34*L, Arterial Blood Partial Pressure CO2 70H, Arterial Blood Partial Pressure O2 101H, Arterial Blood HCO3 37H, Arterial Blood Total CO2 38.8H, Arterial Blood Oxygen Saturation 98, Arterial Blood Base Excess 10.7H , Jair Test POSITIVE, Blood Gas Ventilator Setting NO, Blood Gas Inspired Oxygen 50% BIPAP 07/17/17 22:05: Troponin I < 0.30 07/18/17 03:44: Blood Gas Puncture Site LEFT RADIAL, Blood Gas Patient Temperature 98.9, Arterial Blood pH 7.33*L, Arterial Blood Partial Pressure CO2 64H, Arterial Blood Partial Pressure O2 100H, Arterial Blood HCO3 33H, Arterial Blood Total CO2 34.5H, Arterial Blood Oxygen Saturation 98, Arterial Blood Base Excess 6.8H , Jair Test YES-POS, Blood Gas Ventilator Setting NO, Blood Gas Inspired Oxygen 40% 07/18/17 03:50: White Blood Count 12.6H, Red Blood Count 6.23H, Hemoglobin 18.2H, Hematocrit 55H , Mean Corpuscular Volume 89, Mean Corpuscular Hemoglobin 29, Mean Corpuscular Hemoglobin Concent 33, Red Cell Distribution Width 16.9H, Platelet Count 215, Mean Platelet Volume 11.1H, Neutrophils (%) (Auto) 84H, Lymphocytes (%) (Auto) 11L, Monocytes (%) (Auto) 5, Eosinophils (%) (Auto) 0, Basophils (%) (Auto) 0, Neutrophils # (Auto) 10.6H, Lymphocytes # (Auto) 1.3, Monocytes # (Auto) 0.7, Eosinophils # (Auto) 0.0, Basophils # (Auto) 0.0, Sodium Level 139, Potassium Level 5.1H, Chloride Level 103, Carbon Dioxide Level 28, Anion Gap 8, Blood Urea Nitrogen 13, Creatinine 0.93, Estimat Glomerular Filtration Rate > 60, BUN/ Creatinine Ratio 14, Glucose Level 123H, Calcium Level 8.9, Phosphorus Level 3.5 , Magnesium Level 2.4 Radiology Date of Exam: 07/17/17 CHEST 1 VIEW, AP/PA ONLY INDICATION: Tachycardia, hypoxia. TIME OF EXAM: 10:04 AM No prior studies available for comparison. FINDINGS: There is increased density in the left base obscuring left hemidiaphragm suggestive of left basilar pneumonia. The right lung is clear. No significant effusion is seen. IMPRESSION: Findings suggestive of left basilar pneumonia. Assessment/Plan Assessment/Plan Assessment & Plan acute on chronic respiratory failure 07/17 -admit to ICU -consult to Dr. Longo for pulmonary management 07/18 -now on vapotherm, continue to defer to Dr. Longo hypoxia 07/17 -consult to Dr. Longo for pulmonary management tachyarrhythmia 07/17 -consult to Dr. Rankin for cardiac management -currently sinus tach, will give 5 mg metoprolol and attempt rate control 07/18 -resolved atrial flutter 07/18 -resolved. -cardizem PO daily started per cardiology hypertension 07/17 -metoprolol given for rate control, will see if that brings pressure down -cardiology consult as above -asymptomatic 07/18 -improved blood pressure control copd 07/17 -consult to Dr. Longo as above pneumonia 07/17 -evidence suggestive of PNA on CXR -empiric abx started and will trend labs 07/18 -day 2 abx -labs stable and do not indicate sepsis -cultures pending tobacco abuse 07/17 -cessation recommended obesity The patient is improving and will be transferred to the floor today. . Clinical Quality Measures DVT/VTE Risk/Contraindication: Risk Factor Score Per Nursin RFS Level Per Nursing on Admit: 4+=Very High Copy Copies To 1: [facility]/CHANDANA MONTES DO Jul 18, 2017 08:50
[2017-07-18] MEDS: cefTRIAXone INJECTION 1,000 MG in NS (IVPB) 100 ML IV SCH (09:03)
[2017-07-18] MEDS: APIXABAN 5 MG (ELIQUIS) TABLET PO SCH ×2 (09:07→21:00)
[2017-07-18] MEDS: AMIODARONE IV SOLUTION 200 ML IV SCH (09:14)
[2017-07-18] MEDS: RT-LEVALBUTEROL (XOPENEX) 1.25 MG/3 ML NEB NON-FORMULARY INH SCH ×4 (10:35→21:07)
--- NOTE | 2017-07-18 12:07 | Cardiology Progress Note ---
Cardiology SOAP Progress Note Subjective: No palpitations. Objective: I&O/Vital Signs Vital Sign - Last 12Hours 07/18/17 07/18/17 07/18/17 07/18/17 01:00 01:00 01:01 02:00 Pulse 131 131 131 131 Resp 18 22 14 B/P (MAP) 121/79 (93) 126/92 (103) Pulse Ox 97 97 94 O2 Delivery NIV Bilevel NIV Bilevel O2 Flow Rate 50.00 50.00 40.00 07/18/17 07/18/17 07/18/17 07/18/17 02:31 03:00 04:00 04:00 Pulse 133 133 133 Resp 16 16 21 B/P (MAP) 106/81 (89) 115/84 (94) Pulse Ox 95 93 96 O2 Delivery NIV Bilevel NIV Bilevel NIV Bilevel O2 Flow Rate 40.00 40.00 40.00 FiO2 50 07/18/17 07/18/17 07/18/17 07/18/17 04:12 05:00 06:00 06:54 Pulse 134 134 134 65 Resp 16 23 16 B/P (MAP) 123/88 (100) 123/98 (106) Pulse Ox 94 94 96 93 O2 Delivery NIV Bilevel NIV Bilevel O2 Flow Rate 40.00 40.00 40.00 40.00 07/18/17 07/18/17 07/18/17 07/18/17 07:00 07:00 07:29 08:00 Temp 98.5 Pulse 64 133 Resp 21 B/P (MAP) 115/84 (94) Pulse Ox 96 O2 Delivery Vapotherm NIV Bilevel O2 Flow Rate 20.00 40.00 FiO2 50 07/18/17 07/18/17 07/18/17 08:00 09:00 10:37 B/P (MAP) O2 Delivery NIV Bilevel Nasal Cannula Vapotherm O2 Flow Rate 40.00 20.00 FiO2 50 50 Intake and Output 07/17/17 23:59 Intake Total 420 ml Output Total 550 ml Balance -130 ml Weight (Pounds): 260 Weight (Ounces): 0.7 Weight (Calculated Kilograms): 117.760277 Constitutional: No appears stated age, AAO x 3, No apparent distress, No PERRL , No well-developed, No well-nourished, No other Respiratory: accessory muscle use, No respiratory distress, No chest tender, No chest expansion is symmetric, chest is bilaterally symmetric, No lungs clear to percussion, No lungs clear to auscultation, No crackles, No rhonchi, No rales , No stridor, wheezing, No pleural rub, No other Cardiovascular: regular rate-rhythm, No irregularly irregular, No extra beats, No parasternal heave is noted, No JVD, No edema, No bradycardia, tachycardia, No point of maximal impulse, No cardiac thrills are palpable, S1 and S2, No gallop/S3, No gallop/S4, No diastolic murmur, No systolic murmur, No friction rub, No click, No other Gastrointestional: No tender, No soft, No round, No distended, No pulsatile mass, No organomegaly, No guarding, No rebound, No tenderness, No hernia, No mass, No audible bowel sounds, No abnormal bowel sounds, No abdominal bruits, No spleenomegaly, No other Extremities: normal range of motion, non-tender, normal inspection, No pedal edema, No calf tenderness, No normal capillary refill, No pelvis stable, No calf tenderness, No inflammation, No pedal edema, No slow capillary refill, No swelling, No other, No abrasion, No clubbing, No cyanosis, No ecchymosis, No laceration, No no lower extremity edema bilateral, No significant edema, No tenderness, No wound Neurologic/Psychiatric: No pig farmer II-XII nml as tested, No no motor/sensory deficits, alert, normal mood/affect, oriented x 3, No abnormal cerebellar tests , No abnormal pig farmer II-XII, No abnormal gait, No aphasia, No EOM palsy, No facial droop, No motor weakness, No sensory deficit, No depressed affect, No disoriented x 3, No other, No grossly intact, power is 5/5 both on sides Skin: No normal color, No warm/dry, No cyanosis, No cool, No diaphoresis, No damp, No ecchymosis, No jaundice, No mottled, No pallor, No rash, No tattoos/ piercings, No ulcerations, No rash on exposed areas, No ulcerations on exposed areas, No other Results/Procedures: Labs Laboratory Tests 07/17/17 15:00: Blood Gas Puncture Site RIGHT RADIAL, Blood Gas Patient Temperature 98.2, Arterial Blood pH 7.32*L, Arterial Blood Partial Pressure CO2 73*H, Arterial Blood Partial Pressure O2 37*L, Arterial Blood HCO3 36H, Arterial Blood Total CO2 38.6H, Arterial Blood Oxygen Saturation 67L, Arterial Blood Base Excess 10.1H, Jair Test POSITIVE, Blood Gas Ventilator Setting NO, Blood Gas Inspired Oxygen 4L 07/17/17 15:25: Blood Gas Puncture Site LEFT RADIAL, Blood Gas Patient Temperature 98.0, Arterial Blood pH 7.30*L, Arterial Blood Partial Pressure CO2 69H, Arterial Blood Partial Pressure O2 74L, Arterial Blood HCO3 33H, Arterial Blood Total CO2 35.2H, Arterial Blood Oxygen Saturation 94, Arterial Blood Base Excess 6.8H , Jair Test POSITIVE, Blood Gas Ventilator Setting NO, Blood Gas Inspired Oxygen 4L 07/17/17 15:30: Urine Color YELLOW, Urine Clarity CLEAR, Urine pH 6, Urine Specific Index 1.015L, Urine Protein 2+H, Urine Glucose (UA) NEGATIVE, Urine Ketones NEGATIVE, Urine Nitrite NEGATIVE, Urine Bilirubin NEGATIVE, Urine Urobilinogen NORMAL, Urine Leukocyte Esterase NEGATIVE, Urine RBC (Auto) NEGATIVE, Urine RBC NONE, Urine WBC NONE, Urine Crystals NONE, Urine Bacteria NONE, Urine Casts NONE, Urine Mucus SMALLH, Urine Culture Indicated NO 07/17/17 15:42: Troponin I < 0.30 07/17/17 18:44: Blood Gas Puncture Site LEFT RADIAL, Blood Gas Patient Temperature 98.5, Arterial Blood pH 7.34*L, Arterial Blood Partial Pressure CO2 70H, Arterial Blood Partial Pressure O2 101H, Arterial Blood HCO3 37H, Arterial Blood Total CO2 38.8H, Arterial Blood Oxygen Saturation 98, Arterial Blood Base Excess 10.7H , Jair Test POSITIVE, Blood Gas Ventilator Setting NO, Blood Gas Inspired Oxygen 50% BIPAP 07/17/17 22:05: Troponin I < 0.30 07/18/17 03:44: Blood Gas Puncture Site LEFT RADIAL, Blood Gas Patient Temperature 98.9, Arterial Blood pH 7.33*L, Arterial Blood Partial Pressure CO2 64H, Arterial Blood Partial Pressure O2 100H, Arterial Blood HCO3 33H, Arterial Blood Total CO2 34.5H, Arterial Blood Oxygen Saturation 98, Arterial Blood Base Excess 6.8H , Jair Test YES-POS, Blood Gas Ventilator Setting NO, Blood Gas Inspired Oxygen 40% 3/23/18 03:50: White Blood Count 12.6H, Red Blood Count 6.23H, Hemoglobin 18.2H, Hematocrit 55H , Mean Corpuscular Volume 89, Mean Corpuscular Hemoglobin 29, Mean Corpuscular Hemoglobin Concent 33, Red Cell Distribution Width 16.9H, Platelet Count 215, Mean Platelet Volume 11.1H, Neutrophils (%) (Auto) 84H, Lymphocytes (%) (Auto) 11L, Monocytes (%) (Auto) 5, Eosinophils (%) (Auto) 0, Basophils (%) (Auto) 0, Neutrophils # (Auto) 10.6H, Lymphocytes # (Auto) 1.3, Monocytes # (Auto) 0.7, Eosinophils # (Auto) 0.0, Basophils # (Auto) 0.0, Sodium Level 139, Potassium Level 5.1H, Chloride Level 103, Carbon Dioxide Level 28, Anion Gap 8, Blood Urea Nitrogen 13, Creatinine 0.93, Estimat Glomerular Filtration Rate > 60, BUN/ Creatinine Ratio 14, Glucose Level 123H, Calcium Level 8.9, Phosphorus Level 3.5 , Magnesium Level 2.4 Microbiology 07/17/17 Gram Stain - Final, Resulted 07/17/17 Sputum Culture - Preliminary, Resulted A/P: Assessment/Dx: Shortness of breath, COPD exacerbation, Possible pneumonia, Tachycardia, atrial flutter, Active smoking Plan: Respiratory treatment, IV antibiotics, prednisone for COPD exacerbation and pneumonia. Patient is hypoxic with oxygen saturation of 90 percent on nasal cannula. Chest x-ray shows possible basilar pneumonia. No significant CHF. Patient is euvolemic and unlikely in congestive heart failure. Very low BNP. Echocardiogram shows normal LV function significant valvular heart disease. Rule out ACS with serial troponin. Negative serial troponin. Atrial flutter with 2-1 AV block. Patient was started on IV amiodarone and verapamil yesterday. Patient converted early in the morning to sinus rhythm. DC amiodarone infusion after 18 hours is complete. DC verapamil. Start Cardizem CD 120 mg daily. Continue Eliquis. Smoking cessation was strongly recommended. At length with the patient and family. Thank you for your consultation. Please call me if you have any questions. Chino Rankin MD, FACP, FACC, FSCAI, FHRS, CCDS Interventional Cardiology Cardiac Electrophysiology Vascular Medicine and Endovascular Interventions Focused Exam Evaluation Lactate Level Laboratory Tests 07/17/17 10:48: Lactic Acid Level 0.95 Marisol RANKIN MD Jul 18, 2017 12:07
[2017-07-18] MEDS: DILTIAZEM 120 MG (CARDIZEM CD) CAP PO SCH (15:18)
[2017-07-18] MEDS ORDERED: AZITHROMYCIN 500 MG (ZITHROMAX) VIAL ONE (20:56)
[2017-07-18] MEDS ORDERED: NS (IVPB) 250 ML ONE (20:57)
[2017-07-18] MEDS: AZITHROMYCIN INJECTION 500 MG in NS (IVPB) 250 ML IV SCH (21:25)
[2017-07-19] VITALS (7 sets, daily range): BP systolic 118–131; BP diastolic 59–86
[2017-07-19] MEDS: methylPREDNISolone 40 MG/ML (Solu-MEDROL) VIAL IV SCH ×4 (00:16→17:53)
[2017-07-19] MEDS: CATHETER FLUSH 10 ML SYR IV SCH ×4 (00:16→20:23)
[2017-07-19] MEDS: RT-LEVALBUTEROL (XOPENEX) 1.25 MG/3 ML NEB NON-FORMULARY INH SCH ×6 (01:31→21:48)
[2017-07-19] MEDS: RT-IPRATROPIUM (ATROVENT) 0.5MG/2.5ML AMP IH SCH ×6 (01:31→21:48)
[2017-07-19 05:23] LABS: BASOPHILS % (AUTO) 0 % (0-10); EOSINOPHILS % (AUTO) 0 % (0-10); HEMATOCRIT 52 % (40-54); HEMOGLOBIN 16.2 G/DL (13.3-17.7); LYMPHOCYTES % (AUTO) 7 % (12-44); MEAN CORPUSCULAR HEMOGLOBIN 29 PG (25-34); MEAN CORPUSCULAR HGB CONC 32 G/DL (32-36); MEAN CORPUSCULAR VOLUME 91 FL (80-99); MEAN PLATELET VOLUME 11.1 FL (7.4-10.4); MONOCYTES # (AUTO) 0.9 X 10^3 (0.0-1.0); MONOCYTES % (AUTO) 6 % (0-12); NEUTROPHILS # (AUTO) 13.3 X 10^3 (1.8-7.8); NEUTROPHILS % (AUTO) 87 % (42-75); PLATELET COUNT 201 10^3/uL (130-400); RED BLOOD COUNT 5.68 10^6/uL (4.35-5.85); RED CELL DISTRIBUTION WIDTH 15.9 % (10.0-14.5); WHITE BLOOD COUNT 15.2 10^3/uL (4.3-11.0)
[2017-07-19 05:45] LABS: BUN/CREATININE RATIO 18; CALCIUM 8.7 MG/DL (8.5-10.1); CARBON DIOXIDE 32 MMOL/L (21-32); CHLORIDE 101 MMOL/L (98-107); CREATININE SERUM 0.95 MG/DL (0.60-1.30); GFR ESTIMATED > 60; GLUCOSE 141 MG/DL (70-105); MAGNESIUM 2.3 MG/DL (1.8-2.4); POTASSIUM 4.7 MMOL/L (3.6-5.0); SODIUM 139 MMOL/L (135-145)
[2017-07-19] MEDS: RT-BUDESONIDE NEBS 0.5 MG/2ML (PULMICORT) AMP INH SCH ×2 (06:54→19:41)
[2017-07-19] MEDS: APIXABAN 5 MG (ELIQUIS) TABLET PO SCH ×2 (08:55→20:22)
[2017-07-19] MEDS: cefTRIAXone INJECTION 1,000 MG in NS (IVPB) 100 ML IV SCH (08:56)
[2017-07-19] MEDS: DILTIAZEM 120 MG (CARDIZEM CD) CAP PO SCH (08:56)
[2017-07-19] MEDS ORDERED: INFLUENZA TRIvalent 2017-2018 0.5 ML/45 MCG SYR IM ONE (09:16)
--- NOTE | 2017-07-19 11:23 | Progress Note (SOAP) ---
Subjective Subjective/Events-last exam Patient states that he is feel better this AM. Gets alittle short of breath with walking but it has improved. He is wanting to get up and shower today. Tolerating PO diet. Denies any chest pain or palpitations. Review of Systems Date Seen by Provider: Jul 19, 2017 Time Seen by Provider: 09:45 Pulmonary: Cough Cardiovascular: No: Chest Pain, Palpitations Gastrointestinal: No: Nausea, Vomiting Focused Exam Evaluation Lactate Level Laboratory Tests 07/17/17 10:48: Lactic Acid Level 0.95 Objective Exam Last Set of Vital Signs Vital Signs Date Time Temp Pulse Resp B/P (MAP) Pulse Ox O2 Delivery O2 Flow Rate FiO2 07/19/17 10:40 93 Vapotherm 20.00 50 07/19/17 07:40 98.3 68 22 127/65 (85) Capillary Refill : I&O Intake and Output 07/19/17 00:00 Intake Total 2533.3 ml Output Total 1415 ml Balance 1118.3 ml Intake Oral 2250 ml IV Total 283.3 ml Output Urine Total 1415 ml # Voids 3 General: Alert, Oriented X3, Cooperative, No Acute Distress Lungs: Other (Diffuse wheezing, tight airways, normal work of breathing, no crackles) Heart: Regular Rate, No Murmurs Abdomen: Normal Bowel Sounds, Soft, No Tenderness, No Masses Psych/Mental Status: Mental Status NL, Mood NL Results/Procedures Lab Laboratory Tests 07/19/17 05:10: White Blood Count 15.2H, Red Blood Count 5.68, Hemoglobin 16.2, Hematocrit 52, Mean Corpuscular Volume 91, Mean Corpuscular Hemoglobin 29, Mean Corpuscular Hemoglobin Concent 32, Red Cell Distribution Width 15.9H, Platelet Count 201, Mean Platelet Volume 11.1H, Neutrophils (%) (Auto) 87H, Lymphocytes (%) (Auto) 7L, Monocytes (%) (Auto) 6, Eosinophils (%) (Auto) 0, Basophils (%) (Auto) 0, Neutrophils # (Auto) 13.3H, Lymphocytes # (Auto) 1.0, Monocytes # (Auto) 0.9, Eosinophils # (Auto) 0.0, Basophils # (Auto) 0.0, Sodium Level 139, Potassium Level 4.7, Chloride Level 101, Carbon Dioxide Level 32, Anion Gap 6, Blood Urea Nitrogen 17, Creatinine 0.95, Estimat Glomerular Filtration Rate > 60, BUN/ Creatinine Ratio 18, Glucose Level 141H, Calcium Level 8.7, Magnesium Level 2.3 Microbiology 07/17/17 Blood Culture - Preliminary, Resulted No growth 07/17/17 Gram Stain - Final, Resulted 07/17/17 Sputum Culture - Preliminary, Resulted Usual/normal andrew isolated. Radiology Date of Exam: 07/17/17 CHEST 1 VIEW, AP/PA ONLY INDICATION: Tachycardia, hypoxia. TIME OF EXAM: 10:04 AM No prior studies available for comparison. FINDINGS: There is increased density in the left base obscuring left hemidiaphragm suggestive of left basilar pneumonia. The right lung is clear. No significant effusion is seen. IMPRESSION: Findings suggestive of left basilar pneumonia. Assessment/Plan Assessment/Plan Assessment & Plan acute on chronic respiratory failure with hypoxia 07/17 -admit to ICU -consult to Dr. Longo for pulmonary management 07/18 -now on vapotherm, continue to defer to Dr. Longo 07/19: Continues to require Vapotherm @ 20 and FiO2 50%, encouraged ambulation, will wean as tolerated, goal to get to RA today, Patient knows he will be discharged on oxygen for home use when ready for discharge hypoxia 07/17 -consult to Dr. Longo for pulmonary management tachyarrhythmia 07/17 -consult to Dr. Rankin for cardiac management -currently sinus tach, will give 5 mg metoprolol and attempt rate control 07/18 -resolved 07/19: Continue on oral anticoagulation atrial flutter 07/18 -resolved. -cardizem PO daily started per cardiology hypertension 07/17 -metoprolol given for rate control, will see if that brings pressure down -cardiology consult as above -asymptomatic 07/18 -improved blood pressure control copd 07/17 -consult to Dr. Longo as above pneumonia 07/17 -evidence suggestive of PNA on CXR -empiric abx started and will trend labs 07/18 -day 2 abx -labs stable and do not indicate sepsis -cultures pending tobacco abuse 07/17 -cessation recommended 07/19: Patient states that he is ready to try and quit smoking obesity Dispo: Continue admission for oxygen supplementation Clinical Quality Measures DVT/VTE Risk/Contraindication: Risk Factor Score Per Nursin RFS Level Per Nursing on Admit: 4+=Very High ABDIAS NGUYEN MD Jul 19, 2017 11:23
--- NOTE | 2017-07-19 13:53 | Cardiology Progress Note ---
Cardiology SOAP Progress Note Subjective: Gradually improving shortness of breath. Objective: I&O/Vital Signs Vital Sign - Last 12Hours 07/19/17 07/19/17 07/19/17 07/19/17 10:40 12:00 13:00 15:05 Temp 98.9 Pulse 141 123 Resp 20 B/P (MAP) 124/86 (99) Pulse Ox 93 94 91 O2 Delivery Vapotherm Vapotherm Vapotherm O2 Flow Rate 20.00 50.00 20.00 20.00 FiO2 50 50 07/19/17 07/19/17 07/19/17 07/19/17 16:00 19:41 19:51 20:00 Temp 98.4 99.2 Pulse 132 133 Resp 24 24 B/P (MAP) 119/80 (93) 131/79 (96) Pulse Ox 96 91 90 93 O2 Delivery Nasal Cannula High Flow N/C High Flow N/C Nasal Cannula O2 Flow Rate 6.00 6.00 6.00 6.00 Intake and Output 07/19/17 00:00 Intake Total 1813.3 ml Output Total 815 ml Balance 998.3 ml Weight (Pounds): 278 Weight (Ounces): 8.0 Weight (Calculated Kilograms): 126.394999 Constitutional: No appears stated age, AAO x 3, No apparent distress, No PERRL , No well-developed, No well-nourished, No other Respiratory: accessory muscle use, No respiratory distress, No chest tender, No chest expansion is symmetric, chest is bilaterally symmetric, No lungs clear to percussion, No lungs clear to auscultation, No crackles, No rhonchi, No rales , No stridor, wheezing, No pleural rub, No other Cardiovascular: No regular rate-rhythm, irregularly irregular, No extra beats, No parasternal heave is noted, No JVD, No edema, No bradycardia, tachycardia, No point of maximal impulse, No cardiac thrills are palpable, S1 and S2, No gallop/S3, No gallop/S4, No diastolic murmur, No systolic murmur, No friction rub, No click, No other Gastrointestional: No tender, No soft, No round, No distended, No pulsatile mass, No organomegaly, No guarding, No rebound, No tenderness, No hernia, No mass, No audible bowel sounds, No abnormal bowel sounds, No abdominal bruits, No spleenomegaly, No other Extremities: normal range of motion, non-tender, normal inspection, No pedal edema, No calf tenderness, No normal capillary refill, No pelvis stable, No calf tenderness, No inflammation, No pedal edema, No slow capillary refill, No swelling, No other, No abrasion, No clubbing, No cyanosis, No ecchymosis, No laceration, No no lower extremity edema bilateral, No significant edema, No tenderness, No wound Neurologic/Psychiatric: No portuguese tutor II-XII nml as tested, No no motor/sensory deficits, alert, normal mood/affect, oriented x 3, No abnormal cerebellar tests , No abnormal portuguese tutor II-XII, No abnormal gait, No aphasia, No EOM palsy, No facial droop, No motor weakness, No sensory deficit, No depressed affect, No disoriented x 3, No other, No grossly intact, power is 5/5 both on sides Skin: No normal color, No warm/dry, No cyanosis, No cool, No diaphoresis, No damp, No ecchymosis, No jaundice, No mottled, No pallor, No rash, No tattoos/ piercings, No ulcerations, No rash on exposed areas, No ulcerations on exposed areas, No other Results/Procedures: Labs Laboratory Tests 07/19/17 05:10: White Blood Count 15.2H, Red Blood Count 5.68, Hemoglobin 16.2, Hematocrit 52, Mean Corpuscular Volume 91, Mean Corpuscular Hemoglobin 29, Mean Corpuscular Hemoglobin Concent 32, Red Cell Distribution Width 15.9H, Platelet Count 201, Mean Platelet Volume 11.1H, Neutrophils (%) (Auto) 87H, Lymphocytes (%) (Auto) 7L, Monocytes (%) (Auto) 6, Eosinophils (%) (Auto) 0, Basophils (%) (Auto) 0, Neutrophils # (Auto) 13.3H, Lymphocytes # (Auto) 1.0, Monocytes # (Auto) 0.9, Eosinophils # (Auto) 0.0, Basophils # (Auto) 0.0, Sodium Level 139, Potassium Level 4.7, Chloride Level 101, Carbon Dioxide Level 32, Anion Gap 6, Blood Urea Nitrogen 17, Creatinine 0.95, Estimat Glomerular Filtration Rate > 60, BUN/ Creatinine Ratio 18, Glucose Level 141H, Calcium Level 8.7, Magnesium Level 2.3 Microbiology 07/17/17 Blood Culture - Preliminary, Resulted No growth 07/17/17 Gram Stain - Final, Complete 07/17/17 Sputum Culture - Final, Complete A/P: Assessment/Dx: Shortness of breath, COPD exacerbation, Possible pneumonia, Tachycardia, atrial flutter/atrial fibrillation, Active smoking Plan: Respiratory treatment, IV antibiotics, prednisone for COPD exacerbation and pneumonia. On NIPV. Chest x-ray shows possible basilar pneumonia. No significant CHF. Patient is euvolemic and unlikely in congestive heart failure. Very low BNP. Echocardiogram shows normal LV function significant valvular heart disease. Rule out ACS with serial troponin. Negative serial troponin. On admission Atrial flutter with 2-1 AV block. Patient was started on IV amiodarone and verapamil initially. Patient subsequently converted to sinus rhythm. Amiodarone was discontinued so was verapamil. Start Cardizem CD 120 mg daily. Continue Eliquis. Atrial fibrillation now with controlled ventricular rate. Smoking cessation was strongly recommended. Discussed with the patient and family. Thank you for your consultation. Please call me if you have any questions. Chino Rankin MD, FACP, FACC, FSCAI, FHRS, CCDS Interventional Cardiology Cardiac Electrophysiology Vascular Medicine and Endovascular Interventions Focused Exam Evaluation Lactate Level Laboratory Tests 07/17/17 10:48: Lactic Acid Level 0.95 Marisol RANKIN MD Jul 19, 2017 1:53 pm
[2017-07-19] MEDS ORDERED: DILTIAZEM 120 MG (CARDIZEM CD) CAP PO NR (15:45)
[2017-07-19] MEDS ORDERED: AZITHROMYCIN 500 MG (ZITHROMAX) VIAL ONE (20:08)
[2017-07-19] MEDS ORDERED: NS (IVPB) 250 ML ONE (20:08)
[2017-07-19] MEDS: AZITHROMYCIN INJECTION 500 MG in NS (IVPB) 250 ML IV SCH (20:33)
[2017-07-20] MEDS: methylPREDNISolone 40 MG/ML (Solu-MEDROL) VIAL IV SCH ×2 (00:01→06:18)
[2017-07-20] MEDS: RT-LEVALBUTEROL (XOPENEX) 1.25 MG/3 ML NEB NON-FORMULARY INH SCH ×5 (02:41→21:41)
[2017-07-20] MEDS: RT-IPRATROPIUM (ATROVENT) 0.5MG/2.5ML AMP IH SCH ×6 (02:41→21:41)
[2017-07-20 03:57] VITALS: BP 139/71
[2017-07-20 05:18] LABS: BASOPHILS % (AUTO) 0 % (0-10); EOSINOPHILS % (AUTO) 0 % (0-10); HEMATOCRIT 53 % (40-54); HEMOGLOBIN 16.7 G/DL (13.3-17.7); LYMPHOCYTES # (AUTO) 0.9 X 10^3 (1.0-4.0); LYMPHOCYTES % (AUTO) 7 % (12-44); MEAN CORPUSCULAR HEMOGLOBIN 29 PG (25-34); MEAN CORPUSCULAR HGB CONC 32 G/DL (32-36); MEAN CORPUSCULAR VOLUME 91 FL (80-99); MONOCYTES # (AUTO) 0.8 X 10^3 (0.0-1.0); MONOCYTES % (AUTO) 6 % (0-12); NEUTROPHILS # (AUTO) 11.9 X 10^3 (1.8-7.8); NEUTROPHILS % (AUTO) 88 % (42-75); PLATELET COUNT 184 10^3/uL (130-400); RED BLOOD COUNT 5.82 10^6/uL (4.35-5.85); RED CELL DISTRIBUTION WIDTH 16.4 % (10.0-14.5); WHITE BLOOD COUNT 13.6 10^3/uL (4.3-11.0)
[2017-07-20 05:37] LABS: BUN/CREATININE RATIO 20; CALCIUM 8.7 MG/DL (8.5-10.1); CARBON DIOXIDE 30 MMOL/L (21-32); CHLORIDE 101 MMOL/L (98-107); CREATININE SERUM 0.92 MG/DL (0.60-1.30); GFR ESTIMATED > 60; GLUCOSE 166 MG/DL (70-105); POTASSIUM 4.7 MMOL/L (3.6-5.0); SODIUM 139 MMOL/L (135-145)
[2017-07-20] MEDS: CATHETER FLUSH 10 ML SYR IV SCH ×2 (06:18→13:50)
[2017-07-20] MEDS: RT-BUDESONIDE NEBS 0.5 MG/2ML (PULMICORT) AMP INH SCH ×2 (06:43→19:47)
[2017-07-20 08:00] VITALS: BP 117/71
[2017-07-20] MEDS ORDERED: DILTIAZEM 240 MG (CARDIZEM CD) CAP PO SCH (09:00)
[2017-07-20] MEDS: APIXABAN 5 MG (ELIQUIS) TABLET PO SCH ×2 (10:08→21:39)
[2017-07-20] MEDS: cefTRIAXone INJECTION 1,000 MG in NS (IVPB) 100 ML IV SCH (10:09)
--- NOTE | 2017-07-20 10:32 | Cardiology Progress Note ---
Cardiology SOAP Progress Note Subjective: Improved shortness of breath. Objective: I&O/Vital Signs Vital Sign - Last 12Hours 07/20/17 07/20/17 07/20/17 07/20/17 12:00 13:00 14:30 16:00 Temp 99.4 98.2 Pulse 123 126 124 Resp 20 22 B/P (MAP) 131/83 (99) 132/76 (94) Pulse Ox 95 96 O2 Delivery Nasal Cannula High Flow N/C Nasal Cannula O2 Flow Rate 5.00 5.00 5.00 07/20/17 07/20/17 07/20/17 07/20/17 19:00 19:47 19:57 20:00 Temp 98.6 Pulse 135 113 Resp 20 B/P (MAP) 112/86 (95) Pulse Ox 94 95 94 O2 Delivery High Flow N/C High Flow N/C Nasal Cannula O2 Flow Rate 5.00 5.00 5.00 Intake and Output 07/20/17 00:00 Intake Total 2230 ml Output Total 1790 ml Balance 440 ml Weight (Pounds): 276 Weight (Ounces): 4.0 Weight (Calculated Kilograms): 125.256394 Constitutional: No appears stated age, AAO x 3, No apparent distress, No PERRL , No well-developed, No well-nourished, No other Respiratory: accessory muscle use, No respiratory distress, No chest tender, No chest expansion is symmetric, chest is bilaterally symmetric, No lungs clear to percussion, lungs clear to auscultation, No crackles, No rhonchi, No rales, No stridor, No pleural rub, No other Cardiovascular: No regular rate-rhythm, irregularly irregular, No extra beats, No parasternal heave is noted, No JVD, No edema, No bradycardia, tachycardia, No point of maximal impulse, No cardiac thrills are palpable, S1 and S2, No gallop/S3, No gallop/S4, No diastolic murmur, No systolic murmur, No friction rub, No click, No other Gastrointestional: No tender, No soft, No round, No distended, No pulsatile mass, No organomegaly, No guarding, No rebound, No tenderness, No hernia, No mass, No audible bowel sounds, No abnormal bowel sounds, No abdominal bruits, No spleenomegaly, No other Extremities: normal range of motion, non-tender, normal inspection, No pedal edema, No calf tenderness, No normal capillary refill, No pelvis stable, No calf tenderness, No inflammation, No pedal edema, No slow capillary refill, No swelling, No other, No abrasion, No clubbing, No cyanosis, No ecchymosis, No laceration, No no lower extremity edema bilateral, No significant edema, No tenderness, No wound Neurologic/Psychiatric: No bandoleer straightener stamper II-XII nml as tested, No no motor/sensory deficits, alert, normal mood/affect, oriented x 3, No abnormal cerebellar tests , No abnormal bandoleer straightener stamper II-XII, No abnormal gait, No aphasia, No EOM palsy, No facial droop, No motor weakness, No sensory deficit, No depressed affect, No disoriented x 3, No other, No grossly intact, power is 5/5 both on sides Skin: No normal color, No warm/dry, No cyanosis, No cool, No diaphoresis, No damp, No ecchymosis, No jaundice, No mottled, No pallor, No rash, No tattoos/ piercings, No ulcerations, No rash on exposed areas, No ulcerations on exposed areas, No other Results/Procedures: Labs Laboratory Tests 07/20/17 05:05: White Blood Count 13.6H, Red Blood Count 5.82, Hemoglobin 16.7, Hematocrit 53, Mean Corpuscular Volume 91, Mean Corpuscular Hemoglobin 29, Mean Corpuscular Hemoglobin Concent 32, Red Cell Distribution Width 16.4H, Platelet Count 184, Mean Platelet Volume 11.0H, Neutrophils (%) (Auto) 88H, Lymphocytes (%) (Auto) 7L, Monocytes (%) (Auto) 6, Eosinophils (%) (Auto) 0, Basophils (%) (Auto) 0, Neutrophils # (Auto) 11.9H, Lymphocytes # (Auto) 0.9L, Monocytes # (Auto) 0.8, Eosinophils # (Auto) 0.0, Basophils # (Auto) 0.0, Sodium Level 139, Potassium Level 4.7, Chloride Level 101, Carbon Dioxide Level 30, Anion Gap 8, Blood Urea Nitrogen 18, Creatinine 0.92, Estimat Glomerular Filtration Rate > 60, BUN/ Creatinine Ratio 20, Glucose Level 166H, Calcium Level 8.7 Microbiology 07/17/17 Blood Culture - Preliminary, Resulted No growth 07/17/17 Gram Stain - Final, Complete 07/17/17 Sputum Culture - Final, Complete A/P: Assessment/Dx: Shortness of breath, COPD exacerbation, Possible pneumonia, Tachycardia, atrial flutter/atrial fibrillation, Active smoking Plan: Respiratory treatment, IV antibiotics, prednisone for COPD exacerbation and pneumonia. off vapotherm now. on oxygen via nasal cannula. Chest x-ray shows possible basilar pneumonia. No significant CHF. Patient is euvolemic and unlikely in congestive heart failure. Very low BNP. Echocardiogram shows normal LV function significant valvular heart disease. Ruled out ACS with serial troponin. Negative serial troponin. On admission Atrial flutter with 2-1 AV block. Patient was started on IV amiodarone and verapamil initially. Patient subsequently converted to sinus rhythm. Amiodarone was discontinued so was verapamil. On Cardizem 240mg daily. Continue Eliquis. Atrial fibrillation now with occasional rapid ventricular rate. we are gradually increasing cardizem dose to control heart rate. Once respiratory condition resolves, AF should improve. Smoking cessation was strongly recommended. Discussed with the patient and family. Thank you for your consultation. Please call me if you have any questions. Chino Rankin MD, FACP, FACC, FSCAI, FHRS, CCDS Interventional Cardiology Cardiac Electrophysiology Vascular Medicine and Endovascular Interventions Focused Exam Evaluation Lactate Level Marisol RANKIN MD Jul 20, 2017 10:32 am
--- NOTE | 2017-07-20 11:31 | Progress Note (SOAP) ---
Subjective Subjective/Events-last exam Patient states that he is feeling much better. No BM since admission. Ambulating with mild shortness of breath. Denies any palpitations or chest pains. Review of Systems Date Seen by Provider: Jul 20, 2017 Time Seen by Provider: 11:15 General: No Chills, No Malaise Cardiovascular: No: Chest Pain, Palpitations, Edema Gastrointestinal: Constipation, No: Nausea, Vomiting Objective Exam Last Set of Vital Signs Vital Signs Date Time Temp Pulse Resp B/P (MAP) Pulse Ox O2 Delivery O2 Flow Rate FiO2 07/20/17 07:00 76 07/20/17 06:44 92 High Flow N/C 5.00 07/20/17 03:57 98.1 18 139/71 (93) 07/19/17 15:05 50 Capillary Refill : I&O Intake and Output 07/20/17 00:00 Intake Total 2790 ml Output Total 2290 ml Balance 500 ml Intake Oral 2690 ml IV Total 100 ml Output Urine Total 2290 ml General: Alert, Oriented X3, Cooperative, No Acute Distress Lungs: Other (Diffuse wheezing in all lung spivey, no crackles, normal work of breathing) Heart: Regular Rate, No Murmurs, Other (Irregular rhythm) Abdomen: Normal Bowel Sounds, Soft, No Tenderness, No Masses Extremities: No Edema, No Tenderness/Swelling Results/Procedures Lab Laboratory Tests 07/20/17 05:05: White Blood Count 13.6H, Red Blood Count 5.82, Hemoglobin 16.7, Hematocrit 53, Mean Corpuscular Volume 91, Mean Corpuscular Hemoglobin 29, Mean Corpuscular Hemoglobin Concent 32, Red Cell Distribution Width 16.4H, Platelet Count 184, Mean Platelet Volume 11.0H, Neutrophils (%) (Auto) 88H, Lymphocytes (%) (Auto) 7L, Monocytes (%) (Auto) 6, Eosinophils (%) (Auto) 0, Basophils (%) (Auto) 0, Neutrophils # (Auto) 11.9H, Lymphocytes # (Auto) 0.9L, Monocytes # (Auto) 0.8, Eosinophils # (Auto) 0.0, Basophils # (Auto) 0.0, Sodium Level 139, Potassium Level 4.7, Chloride Level 101, Carbon Dioxide Level 30, Anion Gap 8, Blood Urea Nitrogen 18, Creatinine 0.92, Estimat Glomerular Filtration Rate > 60, BUN/ Creatinine Ratio 20, Glucose Level 166H, Calcium Level 8.7 Microbiology 07/17/17 Blood Culture - Preliminary, Resulted No growth 07/17/17 Gram Stain - Final, Complete 07/17/17 Sputum Culture - Final, Complete Radiology Date of Exam: 07/17/17 CHEST 1 VIEW, AP/PA ONLY INDICATION: Tachycardia, hypoxia. TIME OF EXAM: 10:04 AM No prior studies available for comparison. FINDINGS: There is increased density in the left base obscuring left hemidiaphragm suggestive of left basilar pneumonia. The right lung is clear. No significant effusion is seen. IMPRESSION: Findings suggestive of left basilar pneumonia. Assessment/Plan Assessment/Plan Assessment & Plan 56 yo male admitted for COPD exacerbation with new oxygen requirement acute on chronic respiratory failure with hypoxia 07/17: -admit to ICU -consult to Dr. Longo for pulmonary management 07/18 -now on vapotherm, continue to defer to Dr. Longo 07/19: Continues to require Vapotherm @ 20 and FiO2 50%, encouraged ambulation, will wean as tolerated, goal to get to RA today, Patient knows he will be discharged on oxygen for home use when ready for discharge 07/20: Titrated down to 5L, Still having shortness of breath and wheezing. Transitioned steroids to PO. Ordered home oxygen evaluation for AM. Possible home in AM hypoxia 07/17 -consult to Dr. Longo for pulmonary management tachyarrhythmia 07/17 -consult to Dr. Rankin for cardiac management -currently sinus tach, will give 5 mg metoprolol and attempt rate control 07/18 -resolved 07/19: Continue on oral anticoagulation 07/20: Currently in A fib, Increased Cardizem per Cardiology, continue oral anticoagulation, rate controlled atrial flutter, now in Atrial Fibrillation 07/18 -resolved. -cardizem PO daily started per cardiology hypertension 07/17 -metoprolol given for rate control, will see if that brings pressure down -cardiology consult as above -asymptomatic 07/18 -improved blood pressure control copd 07/17 -consult to Dr. Longo as above pneumonia 07/17 -evidence suggestive of PNA on CXR -empiric abx started and will trend labs 07/18 -day 2 abx -labs stable and do not indicate sepsis -cultures pending tobacco abuse 07/17 -cessation recommended 07/19: Patient states that he is ready to try and quit smoking obesity Dispo: Continue admission for oxygen supplementation, likely home in AM with home oxygen Clinical Quality Measures DVT/VTE Risk/Contraindication: Risk Factor Score Per Nursin RFS Level Per Nursing on Admit: 4+=Very High ABDIAS NGUYEN MD Jul 20, 2017 11:31
[2017-07-20] MEDS ORDERED: POLYETHYLENE GLYCOL 17 GM (MIRALAX) PACK PO NR (11:45)
[2017-07-20 12:00] VITALS: BP 131/83
[2017-07-20 16:00] VITALS: BP 132/76
[2017-07-20] MEDS ORDERED: FUROSEMIDE 40 MG/4 ML INJ (LASIX) IVP STA (17:50)
[2017-07-20 20:00] VITALS: BP 112/86
[2017-07-20] MEDS ORDERED: DILTIAZEM 120 MG (CARDIZEM CD) CAP PO ONE (20:15)
[2017-07-20] MEDS ORDERED: NS (IVPB) 250 ML ONE (21:25)
[2017-07-20] MEDS ORDERED: AZITHROMYCIN 500 MG (ZITHROMAX) VIAL ONE (21:26)
[2017-07-20] MEDS: AZITHROMYCIN INJECTION 500 MG in NS (IVPB) 250 ML IV SCH (21:38)
[2017-07-20] MEDS: predniSONE 20 MG TAB PO SCH (21:39)
[2017-07-21 00:13] VITALS: BP 131/77
[2017-07-21] MEDS ORDERED: DIGOXIN 0.25 MG (LANOXIN) TAB PO ONE (00:15)
[2017-07-21] MEDS: RT-IPRATROPIUM (ATROVENT) 0.5MG/2.5ML AMP IH SCH ×3 (01:21→11:02)
[2017-07-21] MEDS: RT-LEVALBUTEROL (XOPENEX) 1.25 MG/3 ML NEB NON-FORMULARY INH SCH ×3 (01:21→11:03)
[2017-07-21] MEDS ORDERED: DIGOXIN 0.125 MG (LANOXIN) TAB ONE (02:18)
[2017-07-21 04:00] VITALS: BP 133/84
[2017-07-21] MEDS ORDERED: DILTIAZEM 25 MG/5 ML INJ (CARDIZEM) VIAL IVP ONE (05:45)
[2017-07-21] MEDS: CATHETER FLUSH 10 ML SYR IV SCH ×2 (06:00→07:54)
[2017-07-21] MEDS: RT-BUDESONIDE NEBS 0.5 MG/2ML (PULMICORT) AMP INH SCH (06:22)
[2017-07-21 06:25] LABS: BASOPHILS % (AUTO) 0 % (0-10); EOSINOPHILS % (AUTO) 0 % (0-10); HEMATOCRIT 54 % (40-54); HEMOGLOBIN 17.4 G/DL (13.3-17.7); LYMPHOCYTES % (AUTO) 8 % (12-44); MEAN CORPUSCULAR HEMOGLOBIN 29 PG (25-34); MEAN CORPUSCULAR HGB CONC 32 G/DL (32-36); MEAN CORPUSCULAR VOLUME 90 FL (80-99); MEAN PLATELET VOLUME 11.1 FL (7.4-10.4); MONOCYTES # (AUTO) 1.2 X 10^3 (0.0-1.0); MONOCYTES % (AUTO) 9 % (0-12); NEUTROPHILS # (AUTO) 10.9 X 10^3 (1.8-7.8); NEUTROPHILS % (AUTO) 83 % (42-75); PLATELET COUNT 229 10^3/uL (130-400); RED BLOOD COUNT 6.06 10^6/uL (4.35-5.85); RED CELL DISTRIBUTION WIDTH 17.3 % (10.0-14.5); WHITE BLOOD COUNT 13.1 10^3/uL (4.3-11.0)
[2017-07-21 06:49] LABS: BUN/CREATININE RATIO 20; CALCIUM 8.9 MG/DL (8.5-10.1); CARBON DIOXIDE 35 MMOL/L (21-32); CHLORIDE 95 MMOL/L (98-107); CREATININE SERUM 1.04 MG/DL (0.60-1.30); GFR ESTIMATED > 60; GLUCOSE 160 MG/DL (70-105); POTASSIUM 4.3 MMOL/L (3.6-5.0); SODIUM 140 MMOL/L (135-145)
--- NOTE | 2017-07-21 07:47 | Pulmonary Progress Note ---
Subjective Time Seen by Provider: 08:36 Subjective/Events-last exam Pt feels much improved and wants to go home. Exam Exam Vital Signs Date Time Temp Pulse Resp B/P (MAP) Pulse Ox O2 Delivery O2 Flow Rate FiO2 07/21/17 06:47 3 92.00 07/21/17 06:26 92 High Flow N/C 3.00 07/21/17 06:22 92 High Flow N/C 3.00 07/21/17 04:00 98.4 114 20 133/84 (100) 93 Nasal Cannula 5.00 07/21/17 01:22 94 High Flow N/C 4.00 07/21/17 01:00 128 07/21/17 00:13 99.9 95 18 131/77 (95) 93 Nasal Cannula 5.00 07/20/17 21:43 95 High Flow N/C 5.00 07/20/17 21:00 Nasal Cannula 5.00 07/20/17 20:00 98.6 113 20 112/86 (95) 94 Nasal Cannula 5.00 07/20/17 19:57 95 High Flow N/C 5.00 07/20/17 19:47 94 High Flow N/C 5.00 07/20/17 19:00 135 07/20/17 16:00 98.2 124 22 132/76 (94) 96 Nasal Cannula 5.00 07/20/17 14:30 High Flow N/C 5.00 07/20/17 13:00 126 07/20/17 12:00 99.4 123 20 131/83 (99) 95 Nasal Cannula 5.00 07/20/17 08:00 98.9 123 22 117/71 (86) 95 Nasal Cannula 5.00 I & O 07/21/17 07:00 Intake Total 2100 ml Output Total 2550 ml Balance -450 ml General Appearance: No Apparent Distress, Anxious HEENT: PERRL/EOMI Neck: Full Range of Motion, Non Tender, Supple Respiratory: Decreased Breath Sounds Peripheral Pulses: 2+ Dorsalis Pedis (R), 2+ Left Dors-Pedis (L), 2+ Radial Pulses (R), 2+ Radial Pulses (L) Gastrointestinal: normal bowel sounds, non tender, soft, no organomegaly, no pulsatile mass, No guarding, No rebound Neurologic/Psychiatric: Alert, Oriented x3 Skin: Normal Color, Warm/Dry Lymphatic: No Adenopathy Results Lab Laboratory Tests 07/20/17 05:05 07/21/17 05:46 Assessment/Plan Assessment/Plan acute on chronic respiratory failure with hypoxia -Pt is currently requiring noninvasive ventilation -pt will benefit from home vent to mask. He is high risk of recurrent admissions. -Pt will also need home oxygen Atrial flutter -Cardiology consulted severe COPDAE -SVNS increase to Q 4 with xopenex and atrovent - pulmicort BID -pt will probably need home oxygen upon discharge -prednisone taper -oxygen pneumonia -hurt cultures pending -abx tobacco abuse -education obesity with [facility] 232 ALBERT KABA DO Jul 21, 2017 07:47
[2017-07-21] MEDS ORDERED: DIGOXIN 0.125 MG (LANOXIN) TAB PO ONE ×2 (08:30→14:30)
[2017-07-21 08:42] VITALS: BP 130/86
--- NOTE | 2017-07-21 08:56 | Diagnostic Imaging Report ---
EXAM: CHEST PA/LAT (2 VIEW) INDICATION: Followup pneumonia. COMPARISON: Chest radiograph 07/18/2017. FINDINGS: Normal heart size and pulmonary vascularity. Stable elevation of left hemidiaphragm with mild atelectasis or infiltrate in the left lung base, similar to the prior exam. No pleural effusion or pneumothorax. No acute osseous findings. IMPRESSION: Stable elevation of left hemidiaphragm and mild atelectasis or infiltrate in the left lung base. Dictated by: Dictated on workstation # [id number]
[2017-07-21] MEDS ORDERED: DILTIAZEM 180 MG (CARDIZEM CD) CAP PO SCH (09:00)
[2017-07-21] MEDS: predniSONE 20 MG TAB PO SCH (09:17)
[2017-07-21] MEDS: cefTRIAXone INJECTION 1,000 MG in NS (IVPB) 100 ML IV SCH (09:17)
[2017-07-21] MEDS: APIXABAN 5 MG (ELIQUIS) TABLET PO SCH (09:18)
[2017-07-21] MEDS ORDERED: DILT180C90 PO (10:50)
[2017-07-21] MEDS ORDERED: APIX5TAB PO (10:50)
[2017-07-21] MEDS ORDERED: PRD20T PO (10:50)
[2017-07-21 12:30] VITALS: BP 130/86
--- NOTE | 2017-07-21 12:39 | Cardiology Progress Note ---
Cardiology SOAP Progress Note Subjective: Events of overnight noted. However patient is much better today. Wants to go home. Objective: I&O/Vital Signs Vital Sign - Last 12Hours 07/21/17 07/21/17 07/21/17 07/21/17 01:00 01:22 04:00 06:22 Temp 98.4 Pulse 128 114 Resp 20 B/P (MAP) 133/84 (100) Pulse Ox 94 93 92 O2 Delivery High Flow N/C Nasal Cannula High Flow N/C O2 Flow Rate 4.00 5.00 3.00 07/21/17 07/21/17 07/21/17 07/21/17 06:26 06:47 07:00 08:42 Temp 97.5 Pulse 137 125 Resp 18 B/P (MAP) 130/86 (101) Pulse Ox 92 3 93 O2 Delivery High Flow N/C Nasal Cannula O2 Flow Rate 3.00 92.00 5.00 07/21/17 07/21/17 09:00 11:03 Pulse Ox 93 92 O2 Delivery Nasal Cannula High Flow N/C O2 Flow Rate 5.00 3.00 Intake and Output 07/21/17 00:00 Intake Total 2100 ml Output Total 2550 ml Balance -450 ml Weight (Pounds): 277 Weight (Ounces): 5.0 Weight (Calculated Kilograms): [id number] Constitutional: No appears stated age, AAO x 3, No apparent distress, No PERRL , No well-developed, No well-nourished, No other Respiratory: accessory muscle use, No respiratory distress, No chest tender, No chest expansion is symmetric, chest is bilaterally symmetric, No lungs clear to percussion, lungs clear to auscultation, No crackles, No rhonchi, No rales, No stridor, No pleural rub, No other Cardiovascular: No regular rate-rhythm, irregularly irregular, No extra beats, No parasternal heave is noted, No JVD, No edema, No bradycardia, tachycardia, No point of maximal impulse, No cardiac thrills are palpable, S1 and S2, No gallop/S3, No gallop/S4, No diastolic murmur, No systolic murmur, No friction rub, No click, No other Gastrointestional: No tender, No soft, No round, No distended, No pulsatile mass, No organomegaly, No guarding, No rebound, No tenderness, No hernia, No mass, No audible bowel sounds, No abnormal bowel sounds, No abdominal bruits, No spleenomegaly, No other Extremities: normal range of motion, non-tender, normal inspection, No pedal edema, No calf tenderness, No normal capillary refill, No pelvis stable, No calf tenderness, No inflammation, No pedal edema, No slow capillary refill, No swelling, No other, No abrasion, No clubbing, No cyanosis, No ecchymosis, No laceration, No no lower extremity edema bilateral, No significant edema, No tenderness, No wound Neurologic/Psychiatric: No support merchandiser II-XII nml as tested, No no motor/sensory deficits, alert, normal mood/affect, oriented x 3, No abnormal cerebellar tests , No abnormal support merchandiser II-XII, No abnormal gait, No aphasia, No EOM palsy, No facial droop, No motor weakness, No sensory deficit, No depressed affect, No disoriented x 3, No other, No grossly intact, power is 5/5 both on sides Skin: No normal color, No warm/dry, No cyanosis, No cool, No diaphoresis, No damp, No ecchymosis, No jaundice, No mottled, No pallor, No rash, No tattoos/ piercings, No ulcerations, No rash on exposed areas, No ulcerations on exposed areas, No other Results/Procedures: Labs Laboratory Tests 07/21/17 05:46: White Blood Count 13.1H, Red Blood Count 6.06H, Hemoglobin 17.4, Hematocrit 54, Mean Corpuscular Volume 90, Mean Corpuscular Hemoglobin 29, Mean Corpuscular Hemoglobin Concent 32, Red Cell Distribution Width 17.3H, Platelet Count 229, Mean Platelet Volume 11.1H, Neutrophils (%) (Auto) 83H, Lymphocytes (%) (Auto) 8L, Monocytes (%) (Auto) 9, Eosinophils (%) (Auto) 0, Basophils (%) (Auto) 0, Neutrophils # (Auto) 10.9H, Lymphocytes # (Auto) 1.0, Monocytes # (Auto) 1.2H, Eosinophils # (Auto) 0.0, Basophils # (Auto) 0.0, Sodium Level 140, Potassium Level 4.3, Chloride Level 95L, Carbon Dioxide Level 35H, Anion Gap 10, Blood Urea Nitrogen 21H, Creatinine 1.04, Estimat Glomerular Filtration Rate > 60, BUN /Creatinine Ratio 20, Glucose Level 160H, Calcium Level 8.9 Microbiology 07/17/17 Blood Culture - Preliminary, Resulted No growth 07/17/17 Gram Stain - Final, Complete 07/17/17 Sputum Culture - Final, Complete A/P: Assessment/Dx: Shortness of breath, COPD exacerbation, Possible pneumonia, Tachycardia, atrial flutter/atrial fibrillation, Active smoking Plan: Respiratory treatment, IV antibiotics, prednisone for COPD exacerbation and pneumonia. off vapotherm now. on oxygen via nasal cannula. Chest x-ray shows possible basilar pneumonia. No significant CHF. Patient is euvolemic and unlikely in congestive heart failure. Very low BNP. Echocardiogram shows normal LV function significant valvular heart disease. Ruled out ACS with serial troponin. Negative serial troponin. On admission Atrial flutter with 2-1 AV block. Patient was started on IV amiodarone and verapamil initially. Patient subsequently converted to sinus rhythm. Amiodarone was discontinued so was verapamil. On Cardizem 360 mg daily. Continue Eliquis. Atrial fibrillation now with occasional rapid ventricular rate. we are gradually increasing cardizem dose to control heart rate. Once respiratory condition resolves, AF should improve. Overnight the patient had atrial fibrillation with rapid ventricular rate. On Cardizem 360 mg daily. Digoxin loading done. Improved heart rate this morning. Patient can be discharged on Cardizem 360 mg daily and digoxin 250 g daily and follow-up with me on Friday afternoon. Smoking cessation was strongly recommended. Discussed with the patient and family. Thank you for your consultation. Please call me if you have any questions. Chino Rankin MD, FACP, FACC, FSCAI, FHRS, CCDS Interventional Cardiology Cardiac Electrophysiology Vascular Medicine and Endovascular Interventions Marisol RANKIN MD Jul 21, 2017 12:39
--- NOTE | 2017-07-21 20:24 | Discharge Instructions ---
Discharge [facility] Discharge Medications New, Converted or Re-Newed RX: RX on Chart New Medications: Apixaban (Eliquis) 5 Mg Tablet 5 MG PO BID, #60 TAB 0 Refills Diltiazem HCl (Diltiazem 24Hr Cd) 180 Mg Cap.er.24h 360 MG PO DAILY, #30 CAP 0 Refills Prednisone (Prednisone) 20 Mg Tab 0 PO UD, #42 TAB 0 Refills Take 6 tabs(60mg)daily, decrease by 1 tab(10mg) every other day. Continued Medications: Acetaminophen (Tylenol Extra Strength) 500 Mg Tablet 500-1000 MG PO Q6H PRN for PAIN-MILD, TAB Albuterol Sulfate (Proair Hfa) 1 Puff Puff 2 PUFF IH Q4H PRN for SHORTNESS OF BREATH, PUFF 1 PUFF = 90 MCG Fluticasone/Vilanterol (Breo Ellipta 200-25 Mcg INH) 1 Each Blst.w.dev 1 PUFF IH DAILY Guaifenesin (Guaifenesin) 100 Mg/5 Ml Liquid 10 ML PO Q4H PRN for COUGH, EA Discontinued Medications: Prednisone (Prednisone) 10 Mg Tab 10 MG PO UD for 10 Days, TAB TAKE 4 TABLETS DAILY X 4 DAYS, THEN TAKE 3 TABS DAILY X 3 DAYS, THEN TAKE 2 TABS DAILY X 2 DAYS THEN TAKE 1 TAB DAILY FILLED 07-14-17 Patient Instructions Goal/Follow Up Appt: Follow up with Dr. Rankin on Friday afternoon. Follow up with Dr. Longo as directed. Follow up at [facility] on 07/28 at 1:20 pm. Return to The Hospital For: Chest pain, worsening shortness of breath, dizziness, lightheadedness, racing heart Activity & Diet Discharge Diet: Cardiac Diet Activity as Tolerated: Yes Orders-Post D/C & Referrals Pneu Vac Indicated: Yes Copy Copies To 1: Marisol RANKIN MD Copies To 2: ALBERT LONGO BETHANY N MD Jul 21, 2017 10:52
--- NOTE | 2017-07-21 20:38 | Discharge Summary ---
Diagnosis/Chief Complaint Date of Admission Jul 17, 2017 at 09:25 Date of Discharge Jul 21, 2017 at 12:30 Admission Diagnosis Admission Diagnosis acute on chronic hypoxic hypercapneic respiratory failure hypoxia tachyarrhythmia hypertension copd pneumonia tobacco abuse obesity Discharge Diagnosis acute on chronic respiratory failure with hypoxia 07/17: -admit to ICU, consult to Dr. Longo for pulmonary management 07/18 -now on vapotherm, continue to defer to Dr. Longo 07/19: Continues to require Vapotherm @ 20 and FiO2 50%, encouraged ambulation, will wean as tolerated, goal to get to RA today, Patient knows he will be discharged on oxygen for home use when ready for discharge 07/20: Titrated down to 5L, Still having shortness of breath and wheezing. Transitioned steroids to PO. Ordered home oxygen evaluation for AM. Possible home in AM 07/21- requiring 3 lpm at rest per home O2 eval, requesting discharge, unable to obtain vent to mask due to no insurance, set up for home O2 for now hypoxia 07/17 -consult to Dr. Longo for pulmonary management Atrial fibrillation -consult to Dr. Rankin for cardiac management, currently sinus tach, will give 5 mg metoprolol and attempt rate control 07/19: Continue on oral anticoagulation 07/20: Currently in A fib, Increased Cardizem per Cardiology, continue oral anticoagulation, rate controlled 07/21 overnight had RVR, increased Cardizem and digoxin loading given. While consideration given to continued inpatient monitoring and adjustment, patient adamantly requesting d/c and heart rate better this morning, discussed with Dr. Rankin and he will follow up in 2 days. Noted after d/c meds written that Dr. Rankin wanted to continue digoxin- script sent though clinic EMR on 07/21 pm and clinic staff will call patient in am on 07/22 to inform of script for pickup. hypertension 07/17 -metoprolol given for rate control, will see if that brings pressure down -cardiology consult as above -asymptomatic 07/18 -improved blood pressure control copd 07/17 -consult to Dr. Longo as above pneumonia 07/17 -evidence suggestive of PNA on CXR, empiric abx started and will trend labs 07/21- completed 5 days of antibiotics before d/c so no abx given on d/c. tobacco abuse 07/17 -cessation recommended 07/19: Patient states that he is ready to try and quit smoking Chief Complaint/HPI Chief Complaint/HPI 56 year old male who was seen this morning in Pulmonology Clinic by Dr. Longo and found to be tachycardic with a HR in the 150's and hypoxic with sats in the 70's on room air. The patient had been referred to see Dr. Longo after being seen by Lg Tavera APRN on Friday and noted to be complaining of increased sinus drainage and difficulty breathing. Documented vital signs include HR 133 and O2 sat 83% on room air. Patient states he had his sat checked by multiple monitors and that several of them had sats in the 70's, but "they found one that would read in the 80's". Pt had home oxygen ordered, but reports that he did not pick it up "because he is planning on going back to work". Patient reports that he is actually feeling much better today than he has in the last few days. He denies chest pain or pressure, feeling more short of breath than normal, fever, chills, productive cough. Denies cardiac history, other than reports he was briefly on a diuretic for HTN, but it was stopped because he didn't need it any more. He reports that he is quite healthy and that he "got COPD from having his neck surgery in 1997". Patient reports he had a cervical fusion and he was a difficult intubation and has had trouble breathing since then. Patient is a still currently a smoker, but states that he has to "smoke a few a day" in order to be able to breathe. Clinic notes also reveal a remote history of IV drug abuse. Discharge Summary-Simple/Stand Consultations Dr. Longo, Pulmonology Dr. Rankin, Cardiology Discharge Physical Examination Allergies: Coded Allergies: gabapentin (Verified Adverse Reaction, Mild, UPSET STOMACH, 07/17/17) Vitals & I&Os Vital Sign - Last 12Hours Date Time Temp Pulse Resp B/P (MAP) Pulse Ox O2 Delivery O2 Flow Rate FiO2 07/21/17 12:30 125 18 130/86 92 High Flow N/C 3.00 07/21/17 08:42 97.5 07/19/17 15:05 50 Intake and Output 07/21/17 00:00 Intake Total 2100 ml Output Total 2550 ml Balance -450 ml General Appearance: Alert Respiratory: Other (expiratory wheezing) Cardiovascular: Other (irregular rhythm, normal rate) Neuro: Normal Speech Psych/Mental Status: Mood NL Hospital Course See final discharge diagnosis. Labs Laboratory Tests Test 07/20/17 05:05 07/21/17 05:46 Range/Units White Blood Count 13.6 H 13.1 H 4.3-11.0 10^3/uL Red Blood Count 5.82 6.06 H 4.35-5.85 10^6/uL Hemoglobin 16.7 17.4 13.3-17.7 G/DL Hematocrit 53 54 40-54 % Mean Corpuscular Volume 91 90 80-99 FL Mean Corpuscular Hemoglobin 29 29 25-34 PG Mean Corpuscular Hemoglobin Concent 32 32 32-36 G/DL Red Cell Distribution Width 16.4 H 17.3 H 10.0-14.5 % Platelet Count 184 229 130-400 10^3/uL Mean Platelet Volume 11.0 H 11.1 H 7.4-10.4 FL Neutrophils (%) (Auto) 88 H 83 H 42-75 % Lymphocytes (%) (Auto) 7 L 8 L 12-44 % Monocytes (%) (Auto) 6 9 0-12 % Eosinophils (%) (Auto) 0 0 0-10 % Basophils (%) (Auto) 0 0 0-10 % Neutrophils # (Auto) 11.9 H 10.9 H 1.8-7.8 X 10^3 Lymphocytes # (Auto) 0.9 L 1.0 1.0-4.0 X 10^3 Monocytes # (Auto) 0.8 1.2 H 0.0-1.0 X 10^3 Eosinophils # (Auto) 0.0 0.0 0.0-0.3 10^3/uL Basophils # (Auto) 0.0 0.0 0.0-0.1 10^3/uL Sodium Level 139 140 135-145 MMOL/L Potassium Level 4.7 4.3 3.6-5.0 MMOL/L Chloride Level 101 95 L 98-107 MMOL/L Carbon Dioxide Level 30 35 H 21-32 MMOL/L Anion Gap 8 10 5-14 MMOL/L Blood Urea Nitrogen 18 21 H 7-18 MG/DL Creatinine 0.92 1.04 0.60-1.30 MG/DL Estimat Glomerular Filtration Rate > 60 > 60 BUN/Creatinine Ratio 20 20 Glucose Level 166 H 160 H 70-105 MG/DL Calcium Level 8.7 8.9 8.5-10.1 MG/DL Radiology Reviewed Date of Exam: 07/17/17 CHEST 1 VIEW, AP/PA ONLY INDICATION: Tachycardia, hypoxia. TIME OF EXAM: 10:04 AM No prior studies available for comparison. FINDINGS: There is increased density in the left base obscuring left hemidiaphragm suggestive of left basilar pneumonia. The right lung is clear. No significant effusion is seen. IMPRESSION: Findings suggestive of left basilar pneumonia. Discharge Instructions to patient/family Please see electronic discharge instructions given to patient. Discharge Medications Reviewed and agree with Discharge Medication list on patient's Discharge Instruction sheet Clinical Quality Measures DVT/VTE Risk/Contraindication: Risk Factor Score Per Nursin RFS Level Per Nursing on Admit: 4+=Very High Copy Copies To 1: KEVIN Miller BETHANY N MD Jul 21, 2017 20:38
[2017-07-21] MEDS ORDERED: AZITHROMYCIN 250 MG TAB (ZITHROMAX) PO SCH (21:00)
== END 2017-07-21 12:30 | disposition home or self-care (01) | DRG 189 ==
LOC: ICU 09:25 → 4TH 07-18 17:31
PROVIDERS: ADMIT Family Medicine; ATTEND Family Medicine
DX: J96.21 Acute and chronic respiratory failure with hypoxia (principal); R00.0 Tachycardia, unspecified; I10 Essential (primary) hypertension; J44.1 Chronic obstructive pulmonary disease with (acute) exacerbation; J18.9 Pneumonia, unspecified organism; J44.0 Chronic obstructive pulmonary disease with (acute) lower respiratory infection; I48.92 Unspecified atrial flutter; E66.2 Morbid (severe) obesity with alveolar hypoventilation; F17.210 Nicotine dependence, cigarettes, uncomplicated; Z99.81 Dependence on supplemental oxygen; I48.91 Unspecified atrial fibrillation; Z68.35 Body mass index [BMI] 35.0-35.9, adult
CPT/HCPCS: 36415; 71045; 71046; 80048; 80053; 81000; 82805; 83605; 83735; 83880; 84100; 84484; 85025; 87040; 87070; 87081; 87205; 93005; 93306; 94640; 94660; 94760; 94761

== ENCOUNTER 2017-07-25 11:52 | Inpatient (IN) | payer SELFPAY ==
[~2017-07-25] VITALS: Ht 188 cm; Wt 127.0 kg
[2017-07-25] VITALS (14 sets, daily range): BP systolic 96–159; BP diastolic 73–101
[~2017-07-25 11:52] MED LIST changes: +ACET-2267 PO; -AMIODARONE IV SOLUTION 200 ML IV ONE; +APIX5TAB PO; +DILT180C90 PO; +FLUT1BLS IH; +GUAI100L13 PO; +PRD10T PO; +PRD20T PO; +RT-ALBUINH IH
--- OUTSIDE RECORDS SUMMARY | 2017-07-25 11:57 | XMS REPORT ---
Author Author RENA ORR Organization [employer] Address Unknown Phone Unavailable Care Team Providers Care Registered Route Associate Name Role Phone RENA ORR CP Unavailable Allergies No Known Allergies Problems Problem Type Condition ICD-9 Code Onset Dates Condition Status Problem Pain in joint, lower leg 719.46 Active Problem Routine general medical examination at health care facility V70.0 Active Problem Foreign body in ear 931 Active Problem Chronic airway obstruction, not elsewhere classified 496 Active Problem Special screening for malignant neoplasm of prostate V76.44 Active Problem Unspecified disorders of bursae and tendons in shoulder region 726.10 Active Problem Tear of medial cartilage or meniscus of knee, current 836.0 Active Problem Health examination of defined subpopulation V70.5 Active Medications Medication Code System Code Instructions Start Date End Date Status Dosage Jovannadewey Hummel [facility] [place] [id number] 100-25 MCG/INH Inhalation Once a day May by inhalation route 2 samples given Results No Known Results Summary Purpose [employer] Submission
--- OUTSIDE RECORDS SUMMARY | 2017-07-25 11:58 | XMS REPORT ---
Author Author RENA ORR [facility] Address [address] [place] [address] Care Team Providers Care Ware Finisher Name Role Phone RENA ORR Unavailable PROBLEMS Type Condition ICD9-CM Code [id number] Code Onset Dates Condition Status SNOMED Code Problem COPD (chronic obstructive pulmonary disease) J44.9 Active 92742785 Problem Seasonal allergies J30.2 Active 167452186 ALLERGIES No Information SOCIAL HISTORY Never Assessed PLAN OF CARE VITAL SIGNS MEDICATIONS Medication Instructions Dosage Frequency Start Date End Date Duration Status ProAir HFA 108 (90 Base) MCG/ACT Inhalation every 4 hrs 2 puffs as needed for cough, wheeze, or SOB 4h Jun, 90 days Active RESULTS No Results PROCEDURES No Known procedures IMMUNIZATIONS No Known Immunizations MEDICAL (GENERAL) HISTORY Type Description Date Medical History COPD
--- OUTSIDE RECORDS SUMMARY | 2017-07-25 11:58 | XMS REPORT ---
Author Author RENA ORR [facility] Address [address] [place] [address] Care Team Providers Care Commercial Sales Consultant Name Role Phone RENA ORR Unavailable PROBLEMS Type Condition ICD9-CM Code [id number] Code Onset Dates Condition Status SNOMED Code Problem COPD (chronic obstructive pulmonary disease) J44.9 Active 50248763 Problem Seasonal allergies J30.2 Active 057748080 ALLERGIES No Information SOCIAL HISTORY Never Assessed PLAN OF CARE VITAL SIGNS MEDICATIONS Unknown Medications RESULTS No Results PROCEDURES No Known procedures IMMUNIZATIONS No Known Immunizations MEDICAL (GENERAL) HISTORY Type Description Date Medical History COPD
--- OUTSIDE RECORDS SUMMARY | 2017-07-25 11:58 | XMS REPORT ---
Author Author RENA ORR Organization [facility] Address [address] [place] [address] Care Team Providers Care Automation Operator Name Role Phone RENA ORR Unavailable PROBLEMS Type Condition ICD9-CM Code DOD27-TD Code Onset Dates Condition Status SNOMED Code Problem Atrial fibrillation, unspecified type I48.91 Active 66077395 Problem COPD (chronic obstructive pulmonary disease) J44.9 Active 72666355 Problem Seasonal allergies J30.2 Active 180676940 ALLERGIES Substance Reaction Event Type Date Status Naproxen Unknown Drug Allergy Sep, Active ENCOUNTERS Encounter Location Date Diagnosis [facility] [address] [address] August, [facility] [id number] [place] [address]- 3630 Jul, [facility] [address] [address] Jun, Atrial fibrillation, unspecified type I48.91 [facility] [id number] [place] [address] 53348- 1469 Jun, [facility] [id number] [place] [address] 54428- 8558 Jun, [facility] [id number] [place] [address] 57638- 1038 Jun, COPD (chronic obstructive pulmonary disease) J44.9 ; Hypoxia R09.02 and Cough R05 [facility] [id number] [place] [address] 46399- 7021 Nov, COPD (chronic obstructive pulmonary disease) J44.9 [facility] [address] [address]- [address] Nov, Tobacco abuse Z72.0 and COPD (chronic obstructive pulmonary disease) J44.9 [facility] [id number] [place] [address] 99721- 2435 Sep, COPD (chronic obstructive pulmonary disease) J44.9 [facility] [id number] [place] [address] 75837- 5876 Sep, Tobacco abuse Z72.0 [facility] [id number] [place] [address] 90230- 9615 Sep, COPD (chronic obstructive pulmonary disease) J44.9 ; Tobacco abuse Z72.0 and Tobacco abuse counseling Z71.6 [facility] [id number] [place] [address] 22323- 4575 Sep, [facility] [id number] [place] [address] 91945- 4457 August, COPD (chronic obstructive pulmonary disease) J44.9 [facility] [id number] [place] [address] 92757- 7822 Jul, COPD (chronic obstructive pulmonary disease) J44.9 [facility] [id number] [place] [address] 17458- 9716 Jul, COPD (chronic obstructive pulmonary disease) J44.9 [facility] [id number] [place] [address] 40541- 2426 Jun, COPD (chronic obstructive pulmonary disease) J44.9 [facility] [address] [address] Mar, [facility] [id number] [place] [address] 02927- 2821 Mar, [facility] [id number] [place] [address] 81406- 2450 Jan, COPD (chronic obstructive pulmonary disease) J44.9 [facility] [id number] [place] [address] 88436- 9036 Nov, [facility] [address] [facility] [id number] [address] August, COPD (chronic obstructive pulmonary disease) J44.9 [facility] [address] [facility] [id number], [place] [address] 4[address] Jul, Seasonal allergies J30.2 and COPD (chronic obstructive pulmonary disease) J44.9 [facility] [address] [facility] [id number], [place] [address] 0509 Dec, [facility] [address] [facility] [id number], [place] [address]- 4078 Dec, [facility] [address] [facility] [id number], [place] [address]- 2447 Jul, [facility] [address], [place] [address] 8997 Jul, [facility] [address] [facility] [id number], [place] [address]- 3827 Jun, [facility] [address] [facility] [id number], [place] [address]- 3277 Jun, [facility] [id number] [address] 3948 Jun, [facility] [address] [facility] [id number], [place] [address]- 1028 Jun, [facility] [address] [facility] [id number], [place] [address]- 0012 Jun, [facility] [address] [facility] [id number], [place] [address]- 4061 Jun, [facility] [address] [facility] [id number], [place] [address]- 6[address] Jun, [facility] [address] [facility] [id number], [place] [address]- 3686 May, [facility] [address] [facility] [id number] [place] [address]- 50[address] May, [facility] [address] [id number] [place] [address]- 1446 May, [facility] [address] [id number] [place] [address]- 2546 May, [facility] [address] [id number] [place] [address]- 8916 Apr, [facility] [address] [id number] [place] [address]- 9516 Apr, [facility] [address] [id number] [place] [address]- 8231 Mar, [facility] [address] [facility] [id number] [place] [address]- 7056 Mar, [facility] [address] [facility] [id number] [place] [address]- 5219 Dec, [facility] [address] [id number] [place] [address]- 0762 Sep, [facility] [address] [facility] [id number] [place] [address]- 6227 Sep, [facility] [address] [facility] [id number] [place] [address]- 0306 Jul, [facility] [address] [facility] [id number] [place] [address]- 2546 Jun, [facility] [address] [id number] [place] [address]- 8806 May, [facility] [address] [id number] [place] [address]- 6956 Mar, [facility] [address] [facility] [id number] [place] [address]- 2546 Mar, [facility] [address] [facility] [id number] [place] [address]- 1856 Mar, [facility] [address] [facility] [id number], [place] [address]- 0762 Feb, [facility] [address] [address] Feb, [facility] [id number], [place] [address]- 0076 Feb, [facility] [address], [place] [address]- [address] Jan, [facility] [address] [id number] [address] Jan, [facility] [address], [place] [address]- 3702 Sep, [facility] [address], [place] [address]- 1595 August, IMMUNIZATIONS No Known Immunizations SOCIAL HISTORY Never Assessed REASON FOR VISIT smoking cessation f/u, reports started 2 weeks ago and cut down slowly with no problems noted. CBrumbackRN PLAN OF CARE Activity Details Follow Up 2 Weeks Reason:tobacco abuse VITAL SIGNS Height 74 in 2016-10-23 Weight 261.3 lbs 2016-10-23 Temperature 98.3 degrees Fahrenheit 2016-10-23 Heart Rate 90 bpm 2016-10-23 Respiratory Rate 20 2016-10-23 Oximetry on room air:91 % 2016-10-23 BMI 33.55 kg/m2 2016-10-23 Blood pressure systolic 130 mmHg 2016-10-23 Blood pressure diastolic 82 mmHg 2016-10-23 MEDICATIONS Medication Instructions Dosage Frequency Start Date End Date Duration Status Valium 5 mg Orally Twice a day 1/2 12h 14 Sep, 2016 14 days Active ProAir HFA 108 (90 Base) MCG/ACT Inhalation every 4 hrs 2 puffs as needed for SOB or wheeze 4h August, 90 days Active Zyrtec Allergy 10 mg Orally Once a day as needed for allergies 1 tablet as needed Jul, Active Asmanex 30 Metered Doses 220 MCG/INH Inhalation Once a day 1 puff in the evening 24h Jul, Active Breo Ellipta 200-25 MCG/INH Inhalation Once a day 1 puff 24h May, Sep, 90 days Active RESULTS No Results PROCEDURES Procedure Date Ordered Result Body Site MEASURE BLOOD OXYGEN LEVEL October 23, 2016 INSTRUCTIONS MEDICATIONS ADMINISTERED No Known Medications MEDICAL (GENERAL) HISTORY Type Description Date Medical History COPD
--- OUTSIDE RECORDS SUMMARY | 2017-07-25 11:58 | XMS REPORT ---
Author Author RENA ORR Organization [employer] Address Unknown Phone Unavailable Care Team Providers Care Customer Service Associate Name Role Phone RENA ORR CP Unavailable Allergies No Known Allergies Problems Problem Type Condition Code Onset Dates Condition Status Problem Pain in joint, lower leg 719.46 Active Problem Special screening for malignant neoplasm of prostate V76.44 Active Problem Unspecified disorders of bursae and tendons in shoulder region 726.10 Active Problem COPD (chronic obstructive pulmonary disease) J44.9 Active Problem Chronic airway obstruction, not elsewhere classified 496 Active Problem Seasonal allergies J30.2 Active Problem Tear of medial cartilage or meniscus of knee, current 836.0 Active Problem Health examination of defined subpopulation V70.5 Active Problem Routine general medical examination at health care facility V70.0 Active Problem Foreign body in ear 931 Active Medications No Known Medications Results No Known Results Summary Purpose [employer] Submission
--- OUTSIDE RECORDS SUMMARY | 2017-07-25 11:58 | XMS REPORT ---
Author Author RENA ORR [facility] Address [address] [place] [address] Care Team Providers Care Commercial Reporter Name Role Phone RENA ORR Unavailable PROBLEMS Type Condition ICD9-CM Code PST91-TY Code Onset Dates Condition Status SNOMED Code Problem COPD (chronic obstructive pulmonary disease) J44.9 Active 59021503 Problem Seasonal allergies J30.2 Active 433982101 ALLERGIES Substance Reaction Event Type Date Status Naproxen Unknown Drug Allergy Sep, Active ENCOUNTERS Encounter Location Date Diagnosis [place] [address] [address] August, [facility] [address] [address]- [address]60 Jun, [facility] [address] [address]- [address] Jun, [place] [address] [address]- 1404 Jun, COPD (chronic obstructive pulmonary disease) J44.9 ; Hypoxia R09.02 and Cough R05 [facility] [address] [address]- 3886 Nov, COPD (chronic obstructive pulmonary disease) J44.9 [facility] [address] [address]- [address]56 Nov, Tobacco abuse Z72.0 and COPD (chronic obstructive pulmonary disease) J44.9 [facility] [id number] [place] [address] 76178- 8149 Sep, COPD (chronic obstructive pulmonary disease) J44.9 [facility] [address] [address]- [address] Sep, Tobacco abuse Z72.0 [facility] [id number] [place] [address] 16122- 5241 Sep, COPD (chronic obstructive pulmonary disease) J44.9 ; Tobacco abuse Z72.0 and Tobacco abuse counseling Z71.6 [facility] [id number] [place] [address] 94552- 2523 Sep, [facility] [id number] [place] [address] 59144- 3274 August, COPD (chronic obstructive pulmonary disease) J44.9 [facility] [id number] [place] [address] 05042- 3314 Jul, COPD (chronic obstructive pulmonary disease) J44.9 [facility] [id number] [place] [address] 29978- 3349 Jul, COPD (chronic obstructive pulmonary disease) J44.9 [facility] [id number] [place] [address] 95933- 9041 Jun, COPD (chronic obstructive pulmonary disease) J44.9 [facility] [id number] [place] [address] 01491- 7626 Mar, [facility] [address] [address]- 2256 Mar, [facility] [id number] [place] [address] 77759- 9503 Jan, COPD (chronic obstructive pulmonary disease) J44.9 [facility] [address] [address]- 0478 Nov, [facility] [id number] [place] [address] 84544- 8162 August, COPD (chronic obstructive pulmonary disease) J44.9 [facility] [address] [address]- 9874 26 Apr, 2016 Seasonal allergies J30.2 and COPD (chronic obstructive pulmonary disease) J44.9 [facility] [address] [address]- 2764 28 Dec, 2014 [facility] [address] [address]- 5448 18 Dec, 2014 [facility] [address] [address]- 9722 14 Jul, 2014 [facility] [address] [facility] [id number] [address]- 4449 Jul, [facility] [address] [address]- 0005 Jun, [facility] [address] [id number] [address]- 4086 Jun, [facility] [address] [address]- 9843 Jun, [facility] [address] [address]- 1920 Jun, [facility] [address] [address]- 5533 Jun, [facility] [address] [address]- 2237 Jun, [facility] [address] [address]- 4275 Jun, [facility] [address] [address]- 4677 May, [facility] [address] [address]- 1229 May, [facility] [address] [address]- 9524 May, [facility] [id number] [address]- 8065 May, [facility] [address] [id number] [place] [address]- 5340 Apr, [facility] [address] [id number] [place] [address]- 3150 Apr, [facility] [place] [facility] [address] [id number] [place] [address]- 6125 Mar, [facility] [place] [facility] [address] [id number] [place] [address]- 1667 Mar, [facility] [place] [facility] [address] [id number] [place] [address]- 5228 Dec, [facility] [place] [facility] [address] [id number] [place] [address]- 0631 Sep, [facility] [address] [id number] [place] [address]- 6264 Sep, [facility] [place] [facility] [address] [id number] [place] [address]- 0240 Jul, [facility] [place] [facility] [address] [id number] [place] [address]- 3345 Jun, [facility] [address] [id number] [place] [address]- 4862 May, [facility] [address] [id number] [place] [address]- 6551 Mar, [facility] [place] [facility] [address] [id number] [place] [address]- 8178 Mar, [facility] [place] [facility] [address] [id number] [place] [address]- 0333 Mar, [facility] [place] [facility] [address] [id number] [place] [address]- 1189 Feb, [facility] [place] [facility] [address] [id number] [place] [address]- 4813 Feb, [facility] [place] [facility] [address] [id number] [place] [address]- 2546 Feb, [facility] [address] [facility] [id number] [address] 2546 Jan, [facility] [address] [facility] [id number] [address] 2546 Jan, [facility] [address] [facility] [id number] [address] 2546 Sep, [facility] [address] [facility] [id number] [address] 2546 August, IMMUNIZATIONS No Known Immunizations SOCIAL HISTORY Never Assessed REASON FOR VISIT copd JjournotRN, wheezing heard with out ausculation PLAN OF CARE Activity Details Follow Up 2 Weeks Reason:smoking cessation VITAL SIGNS Height 74 in 2016-10-09 Weight 267.1 lbs 2016-10-09 Temperature 98.2 degrees Fahrenheit 2016-10-09 Heart Rate 96 bpm 2016-10-09 Respiratory Rate 20 2016-10-09 Oximetry on room air:93 % 2016-10-09 BMI 34.29 kg/m2 2016-10-09 Blood pressure systolic 122 mmHg 2016-10-09 Blood pressure diastolic 78 mmHg 2016-10-09 MEDICATIONS Medication Instructions Dosage Frequency Start Date End Date Duration Status Breo Ellipta 200-25 MCG/INH Inhalation Once a day 1 puff 24h May, Sep, 90 days Active Zyrtec Allergy 10 mg Orally Once a day as needed for allergies 1 tablet as needed Jul, Active ProAir HFA 108 (90 Base) MCG/ACT Inhalation every 4 hrs 2 puffs as needed for SOB or wheeze 4h August, 90 days Active Valium 5 mg Orally Twice a day 1/2 12h Sep, 14 days Active Asmanex 30 Metered Doses 220 MCG/INH Inhalation Once a day 1 puff in the evening 24h Jul, Active RESULTS No Results PROCEDURES Procedure Date Ordered Result Body Site MEASURE BLOOD OXYGEN LEVEL October 09, 2016 INSTRUCTIONS MEDICATIONS ADMINISTERED No Known Medications MEDICAL (GENERAL) HISTORY Type Description Date Medical History COPD
--- OUTSIDE RECORDS SUMMARY | 2017-07-25 11:58 | XMS REPORT ---
Author Author RENA ORR [facility] Address [address] [place] [address] Care Team Providers Care Egg Processing Supervisor Name Role Phone RENA ORR Unavailable PROBLEMS Type Condition ICD9-CM Code EMY57-OF Code Onset Dates Condition Status SNOMED Code Problem Seasonal allergies J30.2 Active 938623677 Problem COPD (chronic obstructive pulmonary disease) J44.9 Active 98321412 ALLERGIES Unknown Allergies SOCIAL HISTORY No smoking Hx information available PLAN OF CARE VITAL SIGNS MEDICATIONS Unknown Medications RESULTS No Results PROCEDURES No Known procedures IMMUNIZATIONS No Known Immunizations
--- OUTSIDE RECORDS SUMMARY | 2017-07-25 11:58 | XMS REPORT ---
Author Author RENA ORR [facility] Address [address] [place] [address] Care Team Providers Care Radiologist Name Role Phone RENA ORR Unavailable PROBLEMS Type Condition ICD9-CM Code EQW65-HP Code Onset Dates Condition Status SNOMED Code Problem Seasonal allergies J30.2 Active 755219744 Problem COPD (chronic obstructive pulmonary disease) J44.9 Active 71221136 ALLERGIES Unknown Allergies SOCIAL HISTORY No smoking Hx information available PLAN OF CARE VITAL SIGNS MEDICATIONS Medication Instructions Dosage Frequency Start Date End Date Duration Status ProAir HFA 90 mcg/actuation inhale 2 puffs by Inhalation route every 4 hours as needed PRN shortness of breath/cough Jun, Active RESULTS No Results PROCEDURES No Known procedures IMMUNIZATIONS No Known Immunizations
--- OUTSIDE RECORDS SUMMARY | 2017-07-25 11:58 | XMS REPORT ---
Author Author RENA ORR [facility] [employer] Address Unknown Phone Unavailable Care Team Providers Care Filler And Trimmer Name Role Phone RENA ORR CP Unavailable Allergies, Adverse Reactions, Alerts Substance Reaction Event Type N.K.D.A. Info Not Available Non Drug Allergy Problems Problem Type Condition Code Onset Dates Condition Status Problem Pain in joint, lower leg 719.46 Active Problem Special screening for malignant neoplasm of prostate V76.44 Active Problem Unspecified disorders of bursae and tendons in shoulder region 726.10 Active Assessment COPD (chronic obstructive pulmonary disease) J44.9 Active Assessment Seasonal allergies J30.2 Active Problem COPD (chronic obstructive pulmonary disease) J44.9 Active Problem Chronic airway obstruction, not elsewhere classified 496 Active Problem Seasonal allergies J30.2 Active Problem Tear of medial cartilage or meniscus of knee, current 836.0 Active Problem Health examination of defined subpopulation V70.5 Active Problem Routine general medical examination at health care facility V70.0 Active Problem Foreign body in ear 931 Active Medications Medication Code System Code Instructions Start Date End Date Status Dosage Zyrtec Allergy [facility] [address]-34 10 mg Orally Once a day as needed for allergies August 22, 2015 1 tablet as needed Breo Ellipta [facility] [address]-52 100-25 MCG/INH Inhalation Once a day May by inhalation route 2 samples given ProAir HFA [facility] [address]-37 90 mcg/actuation July 01, 2014 inhale 2 puffs by Inhalation route every 4 hours as needed PRN shortness of breath/cough PredniSONE [facility] [address]-36 20 mg Orally Once a day August 22, 2015August 1 tablet Procedures Procedure Coding System Code Date Office Visit, Est Pt., Level 3 CPT-4 37092 August 22, 2015 Vital Signs Date/Time: August 22, 2015 Temperature 98.6 F Weight 244.4 lbs Height 74 in BMI 31.38 Index Blood Pressure Diastolic 76 mmHg Blood Pressure Systolic 130 mmHg Cardiac Monitoring Heart Rate 104 bpm Results No Known Results Summary Purpose [employer] Submission
--- OUTSIDE RECORDS SUMMARY | 2017-07-25 11:58 | XMS REPORT ---
Author Author RENA ORR Organization [facility] Address [address] [place] [address] Care Team Providers Care Employment Consultant Name Role Phone RENA ORR Unavailable PROBLEMS Type Condition ICD9-CM Code EFZ85-BI Code Onset Dates Condition Status SNOMED Code Problem Atrial fibrillation, unspecified type I48.91 Active 47114330 Problem COPD (chronic obstructive pulmonary disease) J44.9 Active 02254515 Problem Seasonal allergies J30.2 Active 250184816 ALLERGIES No Information ENCOUNTERS Encounter Location Date Diagnosis [place] [id number] [place] [address] 70764- 1877 August, [facility] [id number] [address] 85779- 9158 Jul, [facility] [id number] [place] [address] 42143- 1169 Jun, Atrial fibrillation, unspecified type I48.91 [facility] [id number] [place] [address] 05737- 9578 Jun, [place] [id number] [address] 15997- 7872 Jun, [facility] [id number] [place] [address] 17541- 7996 Jun, COPD (chronic obstructive pulmonary disease) J44.9 ; Hypoxia R09.02 and Cough R05 [place] [address] [address]- [address] Nov, COPD (chronic obstructive pulmonary disease) J44.9 [place] [id number] [address] 38446- 8590 Nov, Tobacco abuse Z72.0 and COPD (chronic obstructive pulmonary disease) J44.9 [facility] [id number] [address] 30 Sep, 2016 COPD (chronic obstructive pulmonary disease) J44.9 [facility] [id number] [address] 48334- 4518 28 Sep, 2016 Tobacco abuse Z72.0 [facility] [id number] [place] [address] 88502- 0437 14 Sep, 2016 COPD (chronic obstructive pulmonary disease) J44.9 ; Tobacco abuse Z72.0 and Tobacco abuse counseling Z71.6 [facility] [id number] [address] 86128- 4461 Sep, [facility] [id number] [place] [address] 68893- 4137 August, COPD (chronic obstructive pulmonary disease) J44.9 [facility] [id number] [address] 41244- 9823 Jul, COPD (chronic obstructive pulmonary disease) J44.9 [facility] [id number] [place] [address] 43869- 7184 Jul, COPD (chronic obstructive pulmonary disease) J44.9 [facility] [id number] [address] 70786- 7695 Jun, COPD (chronic obstructive pulmonary disease) J44.9 [facility] [id number] [address] Mar, [facility] [id number] [place] [address] 25179- 6042 Mar, [facility] [id number] [place] [address] 71786- 3222 Jan, COPD (chronic obstructive pulmonary disease) J44.9 [facility] [id number] [place] [address] 59934- 8225 Nov, [facility] [address] [facility] [id number] [place] [address]643 August, COPD (chronic obstructive pulmonary disease) J44.9 [facility] [address] [facility] [id number] [place] [address] 5631 Jul, Seasonal allergies J30.2 and COPD (chronic obstructive pulmonary disease) J44.9 [facility] [address] [facility] [id number] [place] [address]- 4794 Dec, [facility] [address] [facility] [id number] [place] [address]- 9012 Dec, [facility] [address] [facility] [id number] [place] [address]62 Jul, [facility] [address] [facility] [id number] [place] [address]- 8936 Jul, [facility] [id number] [place] [address] 3450 Jun, [facility] [address] [facility] [id number] [place] [address]- 8210 Jun, [facility] [address] [place] [address] 2808 Jun, [facility] [id number] [place] [address] 8209 Jun, [facility] [id number] [place] [address]- 3689 Jun, [facility] [address] [facility] [id number] [place] [address]- 4725 Jun, [facility] [address] [facility] [id number] [place] [address]- 1315 Jun, [facility] [address] [facility] [id number] [place] [address]- 1746 May, [facility] [id number] [place] [address]- 5[address] May, [facility] [place] [facility] [address] [id number] [place] [address]- 4190 May, [facility] [place] [facility] [address] [id number] [place] [address]- 4066 May, [facility] [place] [facility] [address] [facility] [id number] [place] [address]- 0616 Apr, [facility] [place] [facility] [address] [id number] [place] [address]- 3976 Apr, [facility] [place] [facility] [address] [id number] [place] [address]- 0559 Mar, [facility] [place] [facility] [address] [facility] [id number] [place] [address]- 3186 Mar, [facility] [place] [facility] [address] [facility] [id number] [place] [address]- 0936 Dec, [facility] [place] [facility] [address] [id number] [place] [address]- 0601 Sep, [facility] [place] [facility] [address] [id number] [place] [address]- 9927 Sep, [facility] [place] [facility] [address] [facility] [id number] [place] [address]- 0196 Jul, [facility] [place] [facility] [address] [facility] [id number] [place] [address]- 7246 Jun, [facility] [place] [facility] [address] [id number] [address] 9[address] May, [facility] [place] [facility] [address] [id number] [place] [address]- 4696 Mar, [facility] [place] [facility] [address] [facility] [id number] [place] [address]- 1256 Mar, [facility] [place] [facility] [address] [facility] [id number] [place] [address]- 0536 Mar, [facility] [place] [facility] [id number] [address]- 3894 Feb, [facility] [id number] [address] Feb, [facility] [id number] [address]- 5411 Feb, [facility] [id number] [address]- 8826 Jan, [facility] [id number] [address]- 2681 Jan, [facility] [id number] [address]- 8307 Sep, [facility] [id number] [address]- 1595 August, IMMUNIZATIONS No Known Immunizations SOCIAL HISTORY Never Assessed 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
--- OUTSIDE RECORDS SUMMARY | 2017-07-25 11:59 | XMS REPORT | Continuity of Care Document ---
Author Author [facility] Organization [facility] Address Unknown Phone Unavailable Allergies Active Description Code Type Severity Reaction Onset Reported/Identified Relationship to Patient Clinical Status Yes gabapentin Drug Allergy 02/19/2010 Yes gabapentin Drug Allergy N/A N/A 02/19/2010 Yes neurontin neurontin Mild upset stomach 09/30/2011 Yes gabapentin [id number] Drug Allergy Mild UPSET STOMACH 07/17/2017 Medications There is no data. Problems Date Dx Coded Attending Type Code Diagnosis Diagnosed By 07/17/2009 401.1 ESSENTIAL HYPERTENSION BENIGN 07/17/2009 780.79 FATIGUE 07/17/2009 782.3 EDEMA 07/17/2009 RENA ORR APRN 401.1 ESSENTIAL HYPERTENSION BENIGN 07/17/2009 RENA ORR APRN 780.79 FATIGUE 07/17/2009 RENA ORR APRN 782.3 EDEMA 09/12/2009 729.5 PAIN IN LIMB 09/12/2009 RENA ORR APRN 729.5 PAIN IN LIMB 10/20/2009 709.8 FISSURES SKIN 10/20/2009 780.8 HYPERHIDROSIS 10/20/2009 RENA ORR APRN S 709.8 FISSURES SKIN 10/20/2009 RENA ORR APRN 780.8 HYPERHIDROSIS 02/19/2010 427.89 OTHER SPECIFIED CARDIAC DYSRHYTHMIAS 02/19/2010 530.81 ESOPHAGEAL REFLUX 02/19/2010 RENA ORR APRN 427.89 OTHER SPECIFIED CARDIAC DYSRHYTHMIAS 02/19/2010 RENA ORR APRN S 530.81 ESOPHAGEAL REFLUX 02/23/2010 700 CALLUS/CORN 02/23/2010 735.4 HAMMER TOE ( ACQUIRED) 02/23/2010 RENA ORR APRN 700 CALLUS/CORN 02/23/2010 RENA ORR APRN 735.4 HAMMER TOE (ACQUIRED) 03/19/2011 307.42 PERSISTENT DISORDER OF INITIATING OR MAINTAINING SLEEP 03/19/2011 723.1 CERVICALGIA 03/19/2011 V04.81 FLU DX (3 YRS AND ABOVE, IM) 03/19/2011 V76.44 SCREENING FOR MALIGNANT NEOPLASMS OF THE PROSTATE 03/19/2011 RENA ORR APRN 307.42 PERSISTENT DISORDER OF INITIATING OR MAINTAINING SLEEP 03/19/2011 RENA ORR APRN 723.1 CERVICALGIA 03/19/2011 RENA ORR APRN V04.81 FLU DX (3 YRS AND ABOVE, IM) 03/19/2011 RENA ORR APRN V76.44 SCREENING FOR MALIGNANT NEOPLASMS OF THE PROSTATE 04/16/2011 719.41 joint pain, localized in the right shoulder 04/16/2011 RENA ORR APRN 719.41 JOINT PAIN, LOCALIZED IN THE RIGHT SHOULDER 08/22/2011 726.10 DISORDERS OF BURSAE AND TENDONS IN SHOULDER REGION UNSPECIFIED 08/22/2011 RENA ORR APRN 726.10 DISORDERS OF BURSAE AND TENDONS IN SHOULDER REGION UNSPECIFIED 09/30/2011 Ot 931 FOREIGN BODY IN EAR 09/30/2011 Ot E000.8 OTHER EXTERNAL CAUSE STATUS 09/30/2011 Ot E849.0 ACCIDENT IN HOME 09/30/2011 Ot E915 FB ENTERING OT ORIFICE 10/10/2011 931 FOREIGN BODY IN EAR 10/10/2011 RENA ORR APRN 931 FOREIGN BODY IN EAR 05/03/2012 Ot 931 FOREIGN BODY IN EAR 05/03/2012 Ot E000.8 OTHER EXTERNAL CAUSE STATUS 05/03/2012 Ot E915 FB ENTERING OT ORIFICE 05/02/2014 ZULEMA CAMERON Ot 719.46 JOINT PAIN-L/LEG 05/02/2014 ZULEMA CAMERON Ot 844.9 SPRAIN OF KNEE LEG NOS 05/02/2014 ZULEMA CAMERON Ot E000.8 OTHER EXTERNAL CAUSE STATUS 05/02/2014 ZULEMA CAMERON Ot E927.0 OVEREXERTION FROM SUDDEN STRENUOUS MOVEM 05/24/2014 RENA ORR APRN 719.46 PAIN- KNEE 06/06/2014 RENA ORR APRN 496 COPD 06/06/2014 RENA ORR APRN V70.0 EXAM - ROUTINE H&P 06/16/2014 RENA ORR APRN 836.0 TEAR OF MEDIAL CARTILAGE OR MENISCUS OF KNEE CURRENT 07/14/2014 RENA ORR APRN V70.5 EXAM - PRE-EMPLOYMENT 07/14/2014 RENA ORR APRN V76.44 PROSTATE CANCER SCREENING 08/17/2014 Ot 836.0 08/17/2014 Ot E000.8 08/17/2014 Ot E849.0 08/17/2014 Ot E927.0 09/14/2014 Ot 836.0 09/14/2014 Ot E000.8 09/14/2014 Ot E849.0 09/14/2014 Ot E927.0 09/27/2014 Ot 836.0 09/27/2014 Ot E000.8 09/27/2014 Ot E849.0 09/27/2014 Ot E927.0 07/18/2017 Ot V70.3 07/18/2017 Ot 836.0 TEAR MED MENISC KNEE-CUR 07/18/2017 Ot E000.8 OTHER EXTERNAL CAUSE STATUS 07/18/2017 Ot E849.0 ACCIDENT IN HOME 07/18/2017 Ot E927.0 OVEREXERTION FROM SUDDEN STRENUOUS MOVEM 07/18/2017 Ot 836.0 TEAR MED MENISC KNEE-CUR 07/18/2017 Ot E000.8 OTHER EXTERNAL CAUSE STATUS 07/18/2017 Ot E849.0 ACCIDENT IN HOME 07/18/2017 Ot E927.0 OVEREXERTION FROM SUDDEN STRENUOUS MOVEM 07/19/2017 CHANDANA BHAT DO Ot E66.9 OBESITY, UNSPECIFIED 07/19/2017 CHANDANA BHAT DO Ot F17.210 NICOTINE DEPENDENCE, CIGARETTES, UNCOMPL 07/19/2017 CHANDANA BHAT DO Ot I10 ESSENTIAL (PRIMARY) HYPERTENSION 07/19/2017 CHANDANA BHAT DO Ot I48.92 UNSPECIFIED ATRIAL FLUTTER 07/19/2017 BARNIDGE DO, CHANDANA E Ot J18.9 PNEUMONIA, UNSPECIFIED ORGANISM 07/19/2017 BARNIDGE DO, CHANDANA E Ot J44.0 CHRONIC OBSTRUCTIVE PULMON DISEASE W ACU 07/19/2017 BARNIDGE DO, CHANDANA E Ot J44.1 CHRONIC OBSTRUCTIVE PULMONARY DISEASE W 07/19/2017 BARNIDGE DO, CHANDANA E Ot J96.21 ACUTE AND CHRONIC RESPIRATORY FAILURE [place] 07/19/2017 BARNIDGE DOFELICIANOCHANDANA E Ot R00.0 TACHYCARDIA, UNSPECIFIED 07/19/2017 BARNIDGE DO, CHANDANA E Ot Z99.81 DEPENDENCE ON SUPPLEMENTAL OXYGEN 07/20/2017 BARNIDGE DO CHANDANA E Ot E66.9 OBESITY, UNSPECIFIED 07/20/2017 BARNIDGE DO, CHANDANA E Ot F17.210 NICOTINE DEPENDENCE, CIGARETTES, UNCOMPL 07/20/2017 BARNIDGE DO, CHANDANA E Ot I10 ESSENTIAL (PRIMARY) HYPERTENSION 07/20/2017 BARNIDGE DO CHANDANA E Ot I48.92 UNSPECIFIED ATRIAL FLUTTER 07/20/2017 BARNIDGE DOFELICIANOCHANDANA E Ot J18.9 PNEUMONIA, UNSPECIFIED ORGANISM 07/20/2017 BARNIDGE DOOGT E Ot J44.0 CHRONIC OBSTRUCTIVE PULMON DISEASE W ACU 07/20/2017 BARNIDGE DO CHANDANA E Ot J44.1 CHRONIC OBSTRUCTIVE PULMONARY DISEASE W 07/20/2017 BARNIDGE DOOGT E Ot J96.21 ACUTE AND CHRONIC RESPIRATORY FAILURE [place] 07/20/2017 BARNIDGE DOCHANDANA E Ot R00.0 TACHYCARDIA, UNSPECIFIED 07/20/2017 BARNIDGE DO CHANDANA E Ot Z99.81 DEPENDENCE ON SUPPLEMENTAL OXYGEN 07/21/2017 BARNIDGE DO CHANDANA E Ot E66.9 OBESITY, UNSPECIFIED 07/21/2017 BARNIDGE DO, CHANDANA E Ot F17.210 NICOTINE DEPENDENCE, CIGARETTES, UNCOMPL 07/21/2017 BARNIDGE DO, CHANDANA E Ot I10 ESSENTIAL (PRIMARY) HYPERTENSION 07/21/2017 BARNIDGE DO, CHANDANA E Ot I48.92 UNSPECIFIED ATRIAL FLUTTER 07/21/2017 BARNIDGE DO, CHANDANA E Ot J18.9 PNEUMONIA, UNSPECIFIED ORGANISM 07/21/2017 DANIELLECHANDANA Hall DO Ot J44.0 CHRONIC OBSTRUCTIVE PULMON DISEASE W ACU 07/21/2017 PERLITA DO CHANDANA E Ot J44.1 CHRONIC OBSTRUCTIVE PULMONARY DISEASE W 07/21/2017 PERLITA DO CHANDANA E Ot J96.21 ACUTE AND CHRONIC RESPIRATORY FAILURE [place] 07/21/2017 MEGANSAMANCHANDANA Hall DO Ot R00.0 TACHYCARDIA, UNSPECIFIED 07/21/2017 PERLITA DO CHANDANA E Ot Z99.81 DEPENDENCE ON SUPPLEMENTAL OXYGEN Procedures Code Description Performed By Performed On JOINT INJECTION- INTERMEDIATE JOINT 04/16/2012 J1040 DEPO MEDROL 80 MG INJ 04/16/2012 83730 ROUTINE VENIPUNCTURE 07/14/2014 00726 CBC 07/14/2014 [id number] GFR CALC (RESULT ONLY) 07/14/2014 84022 CMP 07/14/2014 48019 LIPID PANEL 07/14/2014 86646 PSA TOTAL 07/14/2014 18814 TSH 07/14/2014 Results Test Result Range Complete blood count (CBC) with automated white blood cell (WBC) differential - 07/17/17 10:48 Blood leukocytes automated count (number/volume) 10.7 10*3/uL 4.3-11.0 Blood erythrocytes automated count (number/volume) 6.32 10*6/uL 4.35-5.85 Venous blood hemoglobin measurement (mass/volume) 18.2 g/dL 13.3-17.7 Blood hematocrit (volume fraction) 55 % 40-54 Automated erythrocyte mean corpuscular volume 87 [foz_us] 80-99 Automated erythrocyte mean corpuscular hemoglobin (mass per erythrocyte) 29 pg 25-34 Automated erythrocyte mean corpuscular hemoglobin concentration measurement ( mass/volume) 33 g/dL 32-36 Automated erythrocyte distribution width ratio 16.2 % 10.0-14.5 Automated blood platelet count (count/volume) 207 10*3/uL 130-400 Automated blood platelet mean volume measurement 11.3 [foz_us] 7.4-10.4 Automated blood neutrophils/100 leukocytes 82 % 42-75 Automated blood lymphocytes/100 leukocytes 13 % 12-44 Blood monocytes/100 leukocytes 4 % 0-12 Automated blood eosinophils/100 leukocytes 0 % 0-10 Automated blood basophils/100 leukocytes 0 % 0-10 Blood neutrophils automated count (number/volume) 8.8 10*3 1.8-7.8 Blood lymphocytes automated count (number/volume) 1.4 10*3 1.0-4.0 Blood monocytes automated count (number/volume) 0.5 10*3 0.0-1.0 Automated eosinophil count 0.0 10*3/uL 0.0-0.3 Automated blood basophil count (count/volume) 0.0 10*3/uL 0.0-0.1 Blood lactic acid measurement (moles/volume) - 07/17/17 10:48 Blood lactic acid measurement (moles/volume) 0.95 mmol/L 0.50-2.00 Comprehensive metabolic panel - 07/17/17 10:48 Serum or plasma sodium measurement (moles/volume) 139 mmol/L 135-145 Serum or plasma potassium measurement (moles/volume) 4.1 mmol/L 3.6-5.0 Serum or plasma chloride measurement (moles/volume) 101 mmol/L 98-107 Carbon dioxide 30 mmol/L 21-32 Serum or plasma anion gap determination (moles/volume) 8 mmol/L 5-14 Serum or plasma urea nitrogen measurement (mass/volume) 9 mg/dL 7-18 Serum or plasma creatinine measurement (mass/volume) 0.88 mg/dL 0.60-1.30 Serum or plasma urea nitrogen/creatinine mass ratio 10 NRG Serum or plasma creatinine measurement with calculation of estimated glomerular filtration rate > NRG Serum or plasma glucose measurement (mass/volume) 125 mg/dL 70-105 Serum or plasma calcium measurement (mass/volume) 9.1 mg/dL 8.5-10.1 Serum or plasma total bilirubin measurement (mass/volume) 0.7 mg/dL 0.1-1.0 Serum or plasma alkaline phosphatase measurement (enzymatic activity/volume) 62 U/L 40-136 Serum or plasma aspartate aminotransferase measurement (enzymatic activity/ volume) 26 U/L 5-34 Serum or plasma alanine aminotransferase measurement (enzymatic activity/volume ) 39 U/L 0-55 Serum or plasma protein measurement (mass/volume) 7.2 g/dL 6.4-8.2 Serum or plasma albumin measurement (mass/volume) 4.1 g/dL 3.2-4.5 Serum or plasma phosphate measurement (mass/volume) - 07/17/17 10:48 Serum or plasma phosphate measurement (mass/volume) 2.9 mg/dL 2.3-4.7 Magnesium - 07/17/17 10:48 Magnesium 2.1 mg/dL 1.8-2.4 Serum or plasma lithium measurement (moles/volume) - 07/17/17 10:48 BNP level 72.7 pg/mL <100.0 Serum or plasma troponin i.cardiac measurement (mass/volume) - 07/17/17 10:48 Serum or plasma troponin i.cardiac measurement (mass/volume) < ng/ mL <0.30 Bacterial blood culture - 07/17/17 10:48 Bacterial blood culture NG NRG Bacterial blood culture - 07/17/17 10:57 Bacterial blood culture NG NRG Bacterial blood culture - 07/17/17 11:05 Bacterial blood culture NG NRG Arterial blood gas measurement - 07/17/17 15:00 Blood pCO2 73 mm[Hg] 35-45 Blood pO2 37 mm[Hg] 79-93 Arterial blood bicarbonate measurement (moles/volume) 36 mmol/L 23-27 Arterial blood base excess by calculation 10.1 mmol/L - 2.5-2.5 Arterial blood oxygen saturation measurement 67 % 94-100 * Inhaled oxygen flow rate 4L NRG Arterial blood pH measurement with patient temperature correction 7.32 7.37-7.43 Arterial blood carbon dioxide, total measurement (moles/volume) 38.6 mmol/L 21.0-31.0 Body site RIGHT RADIAL NRG Assessment of wrist artery patency prior to arterial puncture POSITIVE NRG Setting of ventilation mode NO NRG Measurement of body temperature 98.2 NRG Methicillin resistant Staphylococcus aureus (MRSA) screening culture - 15:15 Methicillin resistant Staphylococcus aureus (MRSA) screening culture NEG NRG Arterial blood gas measurement - 07/17/17 15:25 Blood pCO2 69 mm[Hg] 35-45 Blood pO2 74 mm[Hg] 79-93 Arterial blood bicarbonate measurement (moles/volume) 33 mmol/L 23-27 Arterial blood base excess by calculation 6.8 mmol/L -2.5 -2.5 Arterial blood oxygen saturation measurement 94 % 94-100 * Inhaled oxygen flow rate 4L NRG Arterial blood pH measurement with patient temperature correction 7.30 7.37-7.43 Arterial blood carbon dioxide, total measurement (moles/volume) 35.2 mmol/L 21.0-31.0 Body site LEFT RADIAL NRG Assessment of wrist artery patency prior to arterial puncture POSITIVE NRG Setting of ventilation mode NO NRG Measurement of body temperature 98.0 NRG Complete urinalysis with reflex to culture - 07/17/17 15:30 Urine color determination YELLOW NRG Urine clarity determination CLEAR NRG Urine pH measurement by test strip 6 5-9 Specific gravity of urine by test strip 1.015 1.016- 1.022 Urine protein assay by test strip, semi-quantitative 2+ NEGATIVE Urine glucose detection by automated test strip NEGATIVE NEGATIVE Erythrocytes detection in urine sediment by light microscopy NEGATIVE NEGATIVE Urine ketones detection by automated test strip NEGATIVE NEGATIVE Urine nitrite detection by test strip NEGATIVE NEGATIVE Urine total bilirubin detection by test strip NEGATIVE NEGATIVE Urine urobilinogen measurement by automated test strip (mass/volume) NORMAL NORMAL Urine leukocyte esterase detection by dipstick NEGATIVE NEGATIVE Automated urine sediment erythrocyte count by microscopy (number/high power field) NONE NRG Automated urine sediment leukocyte count by microscopy (number/high power field ) NONE NRG Bacteria detection in urine sediment by light microscopy NONE NRG Crystals detection in urine sediment by light microscopy NONE NRG Casts detection in urine sediment by light microscopy NONE NRG Mucus detection in urine sediment by light microscopy SMALL NRG Complete urinalysis with reflex to culture NO NRG Serum or plasma troponin i.cardiac measurement (mass/volume) - 07/17/17 15:42 Serum or plasma troponin i.cardiac measurement (mass/volume) < ng/ mL <0.30 Sputum Gram stain - 07/17/17 16:00 GRAM STAIN SPUTUM INTERPRET WITH CAUTION NRG Bacterial sputum culture - 07/17/17 16:00 Arterial blood gas measurement - 07/17/17 18:44 Blood pCO2 70 mm[Hg] 35-45 Blood pO2 101 mm[Hg] 79-93 Arterial blood bicarbonate measurement (moles/volume) 37 mmol/L 23-27 Arterial blood base excess by calculation 10.7 mmol/L - 2.5-2.5 Arterial blood oxygen saturation measurement 98 % 94-100 * Inhaled oxygen flow rate 50% BIPAP NRG Arterial blood pH measurement with patient temperature correction 7.34 7.37-7.43 Arterial blood carbon dioxide, total measurement (moles/volume) 38.8 mmol/L 21.0-31.0 Body site LEFT RADIAL NRG Assessment of wrist artery patency prior to arterial puncture POSITIVE NRG Setting of ventilation mode NO NRG Measurement of body temperature 98.5 NRG Serum or plasma troponin i.cardiac measurement (mass/volume) - 07/17/17 22:05 Serum or plasma troponin i.cardiac measurement (mass/volume) < ng/ mL <0.30 Arterial blood gas measurement - 07/18/17 03:44 Blood pCO2 64 mm[Hg] 35-45 Blood pO2 100 mm[Hg] 79-93 Arterial blood bicarbonate measurement (moles/volume) 33 mmol/L 23-27 Arterial blood base excess by calculation 6.8 mmol/L -2.5 -2.5 Arterial blood oxygen saturation measurement 98 % 94-100 * Inhaled oxygen flow rate 40% NRG Arterial blood pH measurement with patient temperature correction 7.33 7.37-7.43 Arterial blood carbon dioxide, total measurement (moles/volume) 34.5 mmol/L 21.0-31.0 Body site LEFT RADIAL NRG Assessment of wrist artery patency prior to arterial puncture YES- POS NRG Setting of ventilation mode NO NRG Measurement of body temperature 98.9 NRG Complete blood count (CBC) with automated white blood cell (WBC) differential - 07/18/17 03:50 Blood leukocytes automated count (number/volume) 12.6 10*3/uL 4.3-11.0 Blood erythrocytes automated count (number/volume) 6.23 10*6/uL 4.35-5.85 Venous blood hemoglobin measurement (mass/volume) 18.2 g/dL 13.3-17.7 Blood hematocrit (volume fraction) 55 % 40-54 Automated erythrocyte mean corpuscular volume 89 [foz_us] 80-99 Automated erythrocyte mean corpuscular hemoglobin (mass per erythrocyte) 29 pg 25-34 Automated erythrocyte mean corpuscular hemoglobin concentration measurement ( mass/volume) 33 g/dL 32-36 Automated erythrocyte distribution width ratio 16.9 % 10.0-14.5 Automated blood platelet count (count/volume) 215 10*3/uL 130-400 Automated blood platelet mean volume measurement 11.1 [foz_us] 7.4-10.4 Automated blood neutrophils/100 leukocytes 84 % 42-75 Automated blood lymphocytes/100 leukocytes 11 % 12-44 Blood monocytes/100 leukocytes 5 % 0-12 Automated blood eosinophils/100 leukocytes 0 % 0-10 Automated blood basophils/100 leukocytes 0 % 0-10 Blood neutrophils automated count (number/volume) 10.6 10*3 1.8-7.8 Blood lymphocytes automated count (number/volume) 1.3 10*3 1.0-4.0 Blood monocytes automated count (number/volume) 0.7 10*3 0.0-1.0 Automated eosinophil count 0.0 10*3/uL 0.0-0.3 Automated blood basophil count (count/volume) 0.0 10*3/uL 0.0-0.1 Whole blood basic metabolic panel - 07/18/17 03:50 Serum or plasma sodium measurement (moles/volume) 139 mmol/L 135-145 Serum or plasma potassium measurement (moles/volume) 5.1 mmol/L 3.6-5.0 Serum or plasma chloride measurement (moles/volume) 103 mmol/L 98-107 Carbon dioxide 28 mmol/L 21-32 Serum or plasma anion gap determination (moles/volume) 8 mmol/L 5-14 Serum or plasma urea nitrogen measurement (mass/volume) 13 mg/dL 7-18 Serum or plasma creatinine measurement (mass/volume) 0.93 mg/dL 0.60-1.30 Serum or plasma urea nitrogen/creatinine mass ratio 14 NRG Serum or plasma creatinine measurement with calculation of estimated glomerular filtration rate > NRG Serum or plasma glucose measurement (mass/volume) 123 mg/dL 70-105 Serum or plasma calcium measurement (mass/volume) 8.9 mg/dL 8.5-10.1 Serum or plasma phosphate measurement (mass/volume) - 07/18/17 03:50 Serum or plasma phosphate measurement (mass/volume) 3.5 mg/dL 2.3-4.7 Magnesium - 07/18/17 03:50 Magnesium 2.4 mg/dL 1.8-2.4 Complete blood count (CBC) with automated white blood cell (WBC) differential - 07/19/17 05:10 Blood leukocytes automated count (number/volume) 15.2 10*3/uL 4.3-11.0 Blood erythrocytes automated count (number/volume) 5.68 10*6/uL 4.35-5.85 Venous blood hemoglobin measurement (mass/volume) 16.2 g/dL 13.3-17.7 Blood hematocrit (volume fraction) 52 % 40-54 Automated erythrocyte mean corpuscular volume 91 [foz_us] 80-99 Automated erythrocyte mean corpuscular hemoglobin (mass per erythrocyte) 29 pg 25-34 Automated erythrocyte mean corpuscular hemoglobin concentration measurement ( mass/volume) 32 g/dL 32-36 Automated erythrocyte distribution width ratio 15.9 % 10.0-14.5 Automated blood platelet count (count/volume) 201 10*3/uL 130-400 Automated blood platelet mean volume measurement 11.1 [foz_us] 7.4-10.4 Automated blood neutrophils/100 leukocytes 87 % 42-75 Automated blood lymphocytes/100 leukocytes 7 % 12-44 Blood monocytes/100 leukocytes 6 % 0-12 Automated blood eosinophils/100 leukocytes 0 % 0-10 Automated blood basophils/100 leukocytes 0 % 0-10 Blood neutrophils automated count (number/volume) 13.3 10*3 1.8-7.8 Blood lymphocytes automated count (number/volume) 1.0 10*3 1.0-4.0 Blood monocytes automated count (number/volume) 0.9 10*3 0.0-1.0 Automated eosinophil count 0.0 10*3/uL 0.0-0.3 Automated blood basophil count (count/volume) 0.0 10*3/uL 0.0-0.1 Whole blood basic metabolic panel - 07/19/17 05:10 Serum or plasma sodium measurement (moles/volume) 139 mmol/L 135-145 Serum or plasma potassium measurement (moles/volume) 4.7 mmol/L 3.6-5.0 Serum or plasma chloride measurement (moles/volume) 101 mmol/L 98-107 Carbon dioxide 32 mmol/L 21-32 Serum or plasma anion gap determination (moles/volume) 6 mmol/L 5-14 Serum or plasma urea nitrogen measurement (mass/volume) 17 mg/dL 7-18 Serum or plasma creatinine measurement (mass/volume) 0.95 mg/dL 0.60-1.30 Serum or plasma urea nitrogen/creatinine mass ratio 18 NRG Serum or plasma creatinine measurement with calculation of estimated glomerular filtration rate > NRG Serum or plasma glucose measurement (mass/volume) 141 mg/dL 70-105 Serum or plasma calcium measurement (mass/volume) 8.7 mg/dL 8.5-10.1 Magnesium - 07/19/17 05:10 Magnesium 2.3 mg/dL 1.8-2.4 Complete blood count (CBC) with automated white blood cell (WBC) differential - 07/20/17 05:05 Blood leukocytes automated count (number/volume) 13.6 10*3/uL 4.3-11.0 Blood erythrocytes automated count (number/volume) 5.82 10*6/uL 4.35-5.85 Venous blood hemoglobin measurement (mass/volume) 16.7 g/dL 13.3-17.7 Blood hematocrit (volume fraction) 53 % 40-54 Automated erythrocyte mean corpuscular volume 91 [foz_us] 80-99 Automated erythrocyte mean corpuscular hemoglobin (mass per erythrocyte) 29 pg 25-34 Automated erythrocyte mean corpuscular hemoglobin concentration measurement ( mass/volume) 32 g/dL 32-36 Automated erythrocyte distribution width ratio 16.4 % 10.0-14.5 Automated blood platelet count (count/volume) 184 10*3/uL 130-400 Automated blood platelet mean volume measurement 11.0 [foz_us] 7.4-10.4 Automated blood neutrophils/100 leukocytes 88 % 42-75 Automated blood lymphocytes/100 leukocytes 7 % 12-44 Blood monocytes/100 leukocytes 6 % 0-12 Automated blood eosinophils/100 leukocytes 0 % 0-10 Automated blood basophils/100 leukocytes 0 % 0-10 Blood neutrophils automated count (number/volume) 11.9 10*3 1.8-7.8 Blood lymphocytes automated count (number/volume) 0.9 10*3 1.0-4.0 Blood monocytes automated count (number/volume) 0.8 10*3 0.0-1.0 Automated eosinophil count 0.0 10*3/uL 0.0-0.3 Automated blood basophil count (count/volume) 0.0 10*3/uL 0.0-0.1 Whole blood basic metabolic panel - 07/20/17 05:05 Serum or plasma sodium measurement (moles/volume) 139 mmol/L 135-145 Serum or plasma potassium measurement (moles/volume) 4.7 mmol/L 3.6-5.0 Serum or plasma chloride measurement (moles/volume) 101 mmol/L 98-107 Carbon dioxide 30 mmol/L 21-32 Serum or plasma anion gap determination (moles/volume) 8 mmol/L 5-14 Serum or plasma urea nitrogen measurement (mass/volume) 18 mg/dL 7-18 Serum or plasma creatinine measurement (mass/volume) 0.92 mg/dL 0.60-1.30 Serum or plasma urea nitrogen/creatinine mass ratio 20 NRG Serum or plasma creatinine measurement with calculation of estimated glomerular filtration rate > NRG Serum or plasma glucose measurement (mass/volume) 166 mg/dL 70-105 Serum or plasma calcium measurement (mass/volume) 8.7 mg/dL 8.5-10.1 Complete blood count (CBC) with automated white blood cell (WBC) differential - 07/21/17 05:46 Blood leukocytes automated count (number/volume) 13.1 10*3/uL 4.3-11.0 Blood erythrocytes automated count (number/volume) 6.06 10*6/uL 4.35-5.85 Venous blood hemoglobin measurement (mass/volume) 17.4 g/dL 13.3-17.7 Blood hematocrit (volume fraction) 54 % 40-54 Automated erythrocyte mean corpuscular volume 90 [foz_us] 80-99 Automated erythrocyte mean corpuscular hemoglobin (mass per erythrocyte) 29 pg 25-34 Automated erythrocyte mean corpuscular hemoglobin concentration measurement ( mass/volume) 32 g/dL 32-36 Automated erythrocyte distribution width ratio 17.3 % 10.0-14.5 Automated blood platelet count (count/volume) 229 10*3/uL 130-400 Automated blood platelet mean volume measurement 11.1 [foz_us] 7.4-10.4 Automated blood neutrophils/100 leukocytes 83 % 42-75 Automated blood lymphocytes/100 leukocytes 8 % 12-44 Blood monocytes/100 leukocytes 9 % 0-12 Automated blood eosinophils/100 leukocytes 0 % 0-10 Automated blood basophils/100 leukocytes 0 % 0-10 Blood neutrophils automated count (number/volume) 10.9 10*3 1.8-7.8 Blood lymphocytes automated count (number/volume) 1.0 10*3 1.0-4.0 Blood monocytes automated count (number/volume) 1.2 10*3 0.0-1.0 Automated eosinophil count 0.0 10*3/uL 0.0-0.3 Automated blood basophil count (count/volume) 0.0 10*3/uL 0.0-0.1 Whole blood basic metabolic panel - 07/21/17 05:46 Serum or plasma sodium measurement (moles/volume) 140 mmol/L 135-145 Serum or plasma potassium measurement (moles/volume) 4.3 mmol/L 3.6-5.0 Serum or plasma chloride measurement (moles/volume) 95 mmol/L 98-107 Carbon dioxide 35 mmol/L 21-32 Serum or plasma anion gap determination (moles/volume) 10 mmol/L 5-14 Serum or plasma urea nitrogen measurement (mass/volume) 21 mg/dL 7-18 Serum or plasma creatinine measurement (mass/volume) 1.04 mg/dL 0.60-1.30 Serum or plasma urea nitrogen/creatinine mass ratio 20 NRG Serum or plasma creatinine measurement with calculation of estimated glomerular filtration rate > NRG Serum or plasma glucose measurement (mass/volume) 160 mg/dL 70-105 Serum or plasma calcium measurement (mass/volume) 8.9 mg/dL 8.5-10.1 Encounters ACCT No. Visit Date/Time Discharge Status Pt. Type Provider Facility Loc./Unit Complaint [id number] 07/17/2017 09:25:00 07/21/2017 12:30:00 DIS Inpatient MEGANSAMANRafael DO CHANDANA E [facility] 4TH TACHYCARDIA [id number] 05/02/2014 13:22:00 05/02/2014 15:56:00 DIS Emergency ZULEMA CAMERON [facility] ER LEFT KNEE PAIN [id number] 06/23/2014 12:05:00 Document Registration [id number] 05/03/2012 00:01:00 Document Registration [id number] 09/30/2011 13:29:00 Document Registration [id number] 03/03/2006 13:29:00 Document Registration [id number] 05/02/2014 13:23:02 ACT Document Registration [id number] 07/14/2017 14:00:00 07/14/2017 23:59:59 CLS Outpatient RENA ORR APRN [facility] [id number] 07/14/2014 11:43:00 07/14/2014 23:59:59 CLS Outpatient RENA ORR APRN [id number] 04/16/2012 15:27:00 04/16/2012 23:59:59 CLS Outpatient
[2017-07-25 12:22] LABS: BASOPHILS % (AUTO) 0 % (0-10); EOSINOPHILS % (AUTO) 0 % (0-10); HEMATOCRIT 60 % (40-54); HEMOGLOBIN 19.2 G/DL (13.3-17.7); LYMPHOCYTES # (AUTO) 1.5 X 10^3 (1.0-4.0); LYMPHOCYTES % (AUTO) 11 % (12-44); MEAN CORPUSCULAR HEMOGLOBIN 29 PG (25-34); MEAN CORPUSCULAR HGB CONC 32 G/DL (32-36); MEAN CORPUSCULAR VOLUME 90 FL (80-99); MEAN PLATELET VOLUME 10.4 FL (7.4-10.4); MONOCYTES # (AUTO) 0.6 X 10^3 (0.0-1.0); MONOCYTES % (AUTO) 4 % (0-12); NEUTROPHILS # (AUTO) 11.9 X 10^3 (1.8-7.8); NEUTROPHILS % (AUTO) 85 % (42-75); PLATELET COUNT 225 10^3/uL (130-400); RED BLOOD COUNT 6.68 10^6/uL (4.35-5.85); RED CELL DISTRIBUTION WIDTH 17.4 % (10.0-14.5)
[2017-07-25] MEDS ORDERED: VERAPAMIL 5 MG/2 ML (CALAN) VIAL IV ONE ×2 (12:25→12:30)
[2017-07-25] MEDS ORDERED: VERAPAMIL 10 MG/4 ML (CALAN) VIAL IV ONE (12:30)
--- NOTE | 2017-07-25 12:31 | Diagnostic Imaging Report ---
Indication: Lower extremity swelling. Comparison: 07/21/2009 Findings: Single frontal view of the chest is obtained. Heart size is normal. There is no central venous congestion. No pneumothorax or pleural fluid. There is mild elevation of the left diaphragm which is unchanged. Increase in interstitial markings appears similar to the prior study. No focal pneumonia is seen. Impression: No acute abnormality is seen. No significant interval change from the prior study. Dictated by: Dictated on workstation # [id number]
[2017-07-25 12:33] LABS: ALANINE AMINOTRANSFERASE 59 U/L (0-55); ALBUMIN 3.9 GM/DL (3.2-4.5); ALKALINE PHOSPHATASE 80 U/L (40-136); BILIRUBIN,TOTAL 1.1 MG/DL (0.1-1.0); BUN/CREATININE RATIO 20; CALCIUM 9.3 MG/DL (8.5-10.1); CARBON DIOXIDE 37 MMOL/L (21-32); CHLORIDE 98 MMOL/L (98-107); CREATININE SERUM 1.14 MG/DL (0.60-1.30); GFR ESTIMATED > 60; GLUCOSE 209 MG/DL (70-105); MAGNESIUM 2.4 MG/DL (1.8-2.4); SODIUM 142 MMOL/L (135-145); TOTAL PROTEIN 6.7 GM/DL (6.4-8.2)
[2017-07-25] MEDS ORDERED: DILTIAZEM 240 MG (CARDIZEM CD) CAP PO ONE (12:45)
[2017-07-25 13:12] LABS: BAND NEUTROPHILS 1 %; BASOPHILS % (MANUAL) 0 %; EOSINOPHILS % (MANUAL) 0 %; LYMPHOCYTES % (MANUAL) 15 %; MONOCYTES % (MANUAL) 4 %; NEUTROPHILS % (MANUAL) 80 %; RBC MORPH NORMAL
--- NOTE | 2017-07-25 13:38 | ED Cardiac General ---
History of Present Illness General Chief Complaint: Cardiac/General Problems Stated Complaint: LEGS SWELLING Nursing Triage Note: PT CO OF LOWER EXT SWELLING, PT O2 @3L PER N/C PT HR 160, PT PLACED ON FULL MONITOR, DENIES C/P AT THIS X. PT DOES HAVE 3+PITTING EDEMA OF LOWER EXT Source: patient, old records Exam Limitations: no limitations History of Present Illness Date Seen by Provider: Jul 25, 2017 Time Seen by Provider: 12:05 Initial Comments This patient had recently been dismissed from the hospital after being treated for COPD exacerbation and atrial fibrillation. He presents today because he is concerned about increasing swelling and redness in his lower extremities. He is noted to be in atrial flutter with RVR with placed all the moderate or. He denies any chest pain or significant shortness of breath. He was unaware that he was in an arrhythmia again. Patient is presently anticoagulated. Patient is on oral Cardizem and digoxin. Allergies and Home Medications Allergies Coded Allergies: gabapentin (Verified Adverse Reaction, Mild, UPSET STOMACH, 07/17/17) Home Medications Acetaminophen 500 Mg Tablet, 500-1,000 MG PO Q6H PRN for PAIN-MILD, (Reported) Albuterol Sulfate 1 Puff Puff, 2 PUFF IH Q4H PRN for SHORTNESS OF BREATH, ( Reported) 1 PUFF = 90 MCG Apixaban 5 Mg Tablet, 5 MG PO BID, (Reported) Digoxin 250 Mcg Tablet, 250 MCG PO DAILY, (Reported) Diltiazem HCl 180 Mg Cap.er.24h, 180 MG PO DAILY, (Reported) Fluticasone/Vilanterol 1 Each Blst.w.dev, 1 PUFF IH DAILY, (Reported) Guaifenesin 100 Mg/5 Ml Liquid, 10 ML PO Q4H PRN for COUGH, (Reported) Prednisone 20 Mg Tab, 0 PO UD Take 6 tabs(60mg)daily, decrease by 1 tab(10mg) every other day. Prescribed by: TIM VELAZCO on 07/21/17 1050 Patient Home Medication List Home Medication List Reviewed: Yes Review of Systems Constitutional: no symptoms reported EENTM: No Symptoms Reported Respiratory: No Symptoms Reported Cardiovascular: See HPI Gastrointestinal: No Symptoms Reported Genitourinary: No Symptoms Reported Musculoskeletal: no symptoms reported Skin: no symptoms reported Psychiatric/Neurological: No Symptoms Reported Endocrine: No Symptoms Reported Past Hnocoht-Cnljwi-Imopfd Hx Patient Social History Alcohol Use: Past History Recreational Drug Use: Yes Drug of Choice: PAST HX Smoking Status: Former Smoker Type Used: Cigarettes, Electronic/Vapor Former Smoker, Quit: Jul 11, 2017 Recent Foreign Travel: No Contact w/Someone Who Travel: No Recent Infectious Disease Expo: No Recent Hopitalizations: Yes (CHF,COPD, A-FIB) Physical Abuse: No Sexual Abuse: No Immunizations Up To Date Tetanus Booster (TDap): Unknown Date of Influenza Vaccine: Jul 19, 2017 Seasonal Allergies Seasonal Allergies: Yes Surgeries History of Surgeries: Yes (NECK FUSION, CARPAL TUNNEL, GANGLION CYST) Respiratory History of Respiratory Disorde: Yes Respiratory Disorders: COPD, Emphysema Cardiovascular History of Cardiac Disorders: Yes (HEART CATH 2000 ([facility]), congestive heart failure) Cardiac Disorders: Atrial Fibrillation Neurological History of Neurological Disord: No Reproductive System Hx Reproductive Disorders: No Sexually Transmitted Disease: No HIV/AIDS: No Genitourinary History of Genitourinary Disor: No Gastrointestinal History of Gastrointestinal Di: No Musculoskeletal History of Musculoskeletal Dis: No Endocrine History of Endocrine Disorders: No HEENT History of HEENT Disorders: Yes HEENT Disorders: Cataract Cancer History of Cancer: No Psychosocial History of Psychiatric Problem: No Suicide Risk Score: 0 Integumentary History of Skin or Integumenta: No Blood Transfusions History of Blood Disorders: No Adverse Reaction to a Blood Tr: No Family Medical History Significant Family History: Heart Disease, Cancer, CAD Under 55 Years Old Physical Exam Vital Signs Vital Signs - First Documented 07/25/17 12:05 Temp 97.9 Pulse 160 Resp 17 B/P (MAP) 126/90 (102) Pulse Ox 94 O2 Delivery Nasal Cannula O2 Flow Rate 3.00 Capillary Refill : Less Than 3 Seconds General Appearance: No Apparent Distress, WD/WN HEENT: PERRL/EOMI, Normal ENT Inspection Neck: Normal Inspection Respiratory: Lungs Clear, Normal Breath Sounds, No Accessory Muscle Use, No Respiratory Distress Cardiovascular: No Murmur, Tachycardia Gastrointestinal: Normal Bowel Sounds, Non Tender, Soft Extremity: Non Tender, Pedal Edema, Swelling Neurologic/Psychiatric: Alert, Oriented x3, No Motor/Sensory Deficits, Normal Mood/Affect, product transfer pumper II-XII Norm as Tested Skin: Normal Color, Warm/Dry Progress/Results/Core Measures Results/Orders Lab Results Laboratory Tests Test 07/25/17 12:05 Range/Units White Blood Count 14.0 H 4.3-11.0 10^3/uL Red Blood Count 6.68 H 4.35-5.85 10^6/uL Hemoglobin 19.2 H 13.3-17.7 G/DL Hematocrit 60 H 40-54 % Mean Corpuscular Volume 90 80-99 FL Mean Corpuscular Hemoglobin 29 25-34 PG Mean Corpuscular Hemoglobin Concent 32 32-36 G/DL Red Cell Distribution Width 17.4 H 10.0-14.5 % Platelet Count 225 130-400 10^3/uL Mean Platelet Volume 10.4 7.4-10.4 FL Neutrophils (%) (Auto) 85 H 42-75 % Lymphocytes (%) (Auto) 11 L 12-44 % Monocytes (%) (Auto) 4 0-12 % Eosinophils (%) (Auto) 0 0-10 % Basophils (%) (Auto) 0 0-10 % Neutrophils # (Auto) 11.9 H 1.8-7.8 X 10^3 Lymphocytes # (Auto) 1.5 1.0-4.0 X 10^3 Monocytes # (Auto) 0.6 0.0-1.0 X 10^3 Eosinophils # (Auto) 0.0 0.0-0.3 10^3/uL Basophils # (Auto) 0.0 0.0-0.1 10^3/uL Neutrophils % (Manual) 80 % Lymphocytes % (Manual) 15 % Monocytes % (Manual) 4 % Eosinophils % (Manual) 0 % Basophils % (Manual) 0 % Band Neutrophils 1 % Blood Morphology Comment NORMAL Sodium Level 142 135-145 MMOL/L Potassium Level 5.0 3.6-5.0 MMOL/L Chloride Level 98 98-107 MMOL/L Carbon Dioxide Level 37 H 21-32 MMOL/L Anion Gap 7 5-14 MMOL/L Blood Urea Nitrogen 23 H 7-18 MG/DL Creatinine 1.14 0.60-1.30 MG/DL Estimat Glomerular Filtration Rate > 60 BUN/Creatinine Ratio 20 Glucose Level 209 H 70-105 MG/DL Calcium Level 9.3 8.5-10.1 MG/DL Magnesium Level 2.4 1.8-2.4 MG/DL Total Bilirubin 1.1 H 0.1-1.0 MG/DL Aspartate Amino Transf (AST/SGOT) 19 5-34 U/L Alanine Aminotransferase (ALT/SGPT) 59 H 0-55 U/L Alkaline Phosphatase 80 40-136 U/L B-Type Natriuretic Peptide 139.8 H <100.0 PG/ML Total Protein 6.7 6.4-8.2 GM/DL Albumin 3.9 3.2-4.5 GM/DL Digoxin Level 0.38 L 0.80-2.00 NG/ML My Orders Orders - ARIANNA GUPTA MD BNP (07/25/17 12:15) Cbc With Automated Diff (07/25/17 12:15) Comprehensive Metabolic Panel (07/25/17 12:15) Magnesium (07/25/17 12:15) Chest 1 View, Ap/Pa Only (07/25/17 12:15) Saline Lock/Iv-Start (07/25/17 12:15) Verapamil Injection (Calan Injection) (07/25/17 12:30) Manual Differential (07/25/17 12:05) Digoxin (07/25/17 12:25) Verapamil Injection (Calan Injection) (07/25/17 12:25) Verapamil Injection (Calan Injection) (07/25/17 12:30) Diltiazem Cd 24 Hr Capsule (Cardizem Cd (07/25/17 12:45) Medications Given in ED Current Medications Medications Dose Ordered Sig/Mary Route Start Time Stop Time Status Last Admin Dose Admin Diltiazem HCl 240 mg ONCE ONCE PO 07/25/17 12:45 07/25/17 12:46 DC 07/25/17 12:54 240 MG Verapamil HCl 5 mg ONCE ONCE IV 07/25/17 12:30 07/25/17 12:37 DC 07/25/17 12:35 5 MG Vital Signs/I&O Vital Sign - Last 12Hours 07/25/17 12:05 Temp 97.9 Pulse 160 Resp 17 B/P (MAP) 126/90 (102) Pulse Ox 94 O2 Delivery Nasal Cannula O2 Flow Rate 3.00 Blood Pressure Mean: 102 Progress Note : Progress Note Patient presented in atrial flutter with RVR. He was initially treated with verapamil 5 mg IV as well as Cardizem cd 240 mg orally after consultation with Dr. Fulton. After labs were reviewed, digoxin 0.5 mg IV was also given again in consultation with Dr. Fulton. Patient's heart rate became variable after that ranging from the 110s to 150s. Systolic blood pressure was stable in the 90s. ECG Initial ECG Impression Date: Jul 25, 2017 Initial ECG Impression Time: 11:59 Initial ECG Rate: 161 Initial ECG Rhythm: A Fib/Flutter Comment Atrial flutter with RVR at a rate of 161. ST depression noted. Diagnostic Imaging Diagonstic Imaging: Xray Plain Films/CT/US/NM/MRI: chest Comments Chest x-ray viewed by me and report reviewed. See report below: NAME: KAYA LAUREN [facility] REC#: [id number] PT STATUS: REG ER : 1960 PHYSICIAN: ARIANNA GUPTA MD ADMIT DATE: 07/25/17/ER Draft Date of Exam:07/25/17 CHEST 1 VIEW, AP/PA ONLY Indication: Lower extremity swelling. Comparison: 07/21/2009 Findings: Single frontal view of the chest is obtained. Heart size is normal. There is no central venous congestion. No pneumothorax or pleural fluid. There is mild elevation of the left diaphragm which is unchanged. Increase in interstitial markings appears similar to the prior study. No focal pneumonia is seen. Impression: No acute abnormality is seen. No significant interval change from the prior study. Dictated on workstation # [id number] Dict: 07/25/17 1225 Trans: 07/25/17 1230 [facility] [id number] Interpreted by: SHAZIA HEAD DO Departure Communication (Admissions) Time/Spoke to Admitting Phy: 13:[address] Velazco Time/Spoke to Consulting Phy: 13:25 Communication/Consulting Dr. Fulton Impression Impression: Primary Impression: Atrial flutter with rapid ventricular response Disposition: ADMITTED INPATIENT Condition: Improved Admissions Decision to Admit Reason: Admit from ER (General) Decision to Admit/Date: Jul 25, 2017 Time/Decision to Admit Time: 12:10 Departure-Patient Inst. Referrals: [facility] [place]) Primary Care Physician ARIANNA GUPTA MD Jul 25, 2017 13:38
[2017-07-25] MEDS ORDERED: DIGOXIN 0.25 MG/ML (LANOXIN) 2 ML AMP IV ONE (14:00)
[2017-07-25] MEDS ORDERED: APIX5TAB PO (15:27)
[2017-07-25] MEDS ORDERED: DILT180C90 PO (15:27)
[2017-07-25] MEDS ORDERED: DIGO250T PO (15:27)
[2017-07-25] MEDS ORDERED: PATIENT MAY USE OWN MEDS, ALL MC SCH (17:15)
[2017-07-25] MEDS ORDERED: guaiFENesin SYRUP 100 MG/5 ML 10 ML (ROBITUSSIN SF) PO PRN (17:30)
[2017-07-25] MEDS ORDERED: ACETAMINOPHEN 500 MG TAB (TYLENOL) PO PRN (17:30)
[2017-07-25] MEDS ORDERED: RT-ALBUTEROL SULF 2.5 MG/3 ML PRE-MIX VIAL INH PRN (19:15)
[2017-07-25] MEDS: APIXABAN 5 MG (ELIQUIS) TABLET PO SCH (20:26)
[2017-07-25] MEDS: meTOprolol 5 MG/5 ML (LOPRESSOR) VIAL IV SCH (22:14)
[2017-07-26] VITALS: BP 97/54
[2017-07-26] MEDS: meTOprolol 5 MG/5 ML (LOPRESSOR) VIAL IV SCH ×5 (00:36→12:36)
[2017-07-26 04:00] VITALS: BP 118/63
[2017-07-26] MEDS ORDERED: predniSONE 10 MG TAB PO SCH (07:00)
[2017-07-26 08:00] VITALS: BP 123/67
[2017-07-26] MEDS ORDERED: RT-ADVAIR HFA 115/21 MCG PER PUFF IH SCH (08:00)
[2017-07-26] MEDS: APIXABAN 5 MG (ELIQUIS) TABLET PO SCH (08:33)
[2017-07-26] MEDS ORDERED: DILTIAZEM 180 MG (CARDIZEM CD) CAP PO SCH (09:00)
[2017-07-26] MEDS ORDERED: DIGOXIN 0.25 MG (LANOXIN) TAB PO SCH (09:00)
--- NOTE | 2017-07-26 09:05 | History & Physicial (CHS) ---
HPI History of Present Illness: 56-year-old male presents to [facility] emergency department after noting increased swelling of his lower extremities. He had also noted some redness of the lower extremities. He had recently been in hospital for COPD exacerbation with atrial fibrillation. In the emergency department he was noted to be with atrial fib with rapid ventricular response. At that time upon admission for observation he was noted to be without any chest pain or shortness of breath. He does admit his home medications including Cardizem, digoxin as well as medication for anticoagulation. In the emergency room he was given IV verapamil as well as IV digoxin to eventually control his rate. He was admitted for further monitoring of his rate and stability for home medications. Source: patient Exam Limitations: clinical condition Date seen by provider: Jul 26, 2017 Time Seen by Provider: 06:45 Attending Physician Ifeoma Lemus MD PCP [facility] Consult Date of Admission Jul 25, 2017 at 13:32 Home Medications Home Medications Reviewed patient Home Medication Reconciliation performed by pharmacy medication reconciliations certified bench jeweler technician and/or nursing. Patients Allergies have been reviewed. Allergies Coded Allergies: gabapentin (Verified Adverse Reaction, Mild, UPSET STOMACH, 07/17/17) YNX-[id number]-Hvfcxq Hx Patient Social History Marrital Status: Alcohol Use: Past History Recreational Drug Use: Yes Drug of Choice: PAST HX Smoking Status: Former Smoker Type Used: Cigarettes, Electronic/Vapor Recent Foreign Travel: No Contact w/other who traveled: No Recent Hopitalizations: Yes (CHF,COPD, A-FIB) Recent Infectious Disease Expo: No Physical Abuse Screen: No Sexual Abuse: No Immunizations Up To Date Tetanus Booster (TDap): Unknown Date of Pneumonia Vaccine: Apr 28, 2009 Date of Influenza Vaccine: Jul 19, 2017 Past Medical History Remote history of IV drug abuse COPD Tobacco abuse Family Medical History Significant Family History: Heart Disease, Cancer, CAD Under 55 Years Old Review of Systems (CHC) Constitutional: see HPI Reviewed Test Results Reviewed Test Results Lab Laboratory Tests Test 07/25/17 12:05 Range/Units White Blood Count 14.0 H 4.3-11.0 10^3/uL Red Blood Count 6.68 H 4.35-5.85 10^6/uL Hemoglobin 19.2 H 13.3-17.7 G/DL Hematocrit 60 H 40-54 % Mean Corpuscular Volume 90 80-99 FL Mean Corpuscular Hemoglobin 29 25-34 PG Mean Corpuscular Hemoglobin Concent 32 32-36 G/DL Red Cell Distribution Width 17.4 H 10.0-14.5 % Platelet Count 225 130-400 10^3/uL Mean Platelet Volume 10.4 7.4-10.4 FL Neutrophils (%) (Auto) 85 H 42-75 % Lymphocytes (%) (Auto) 11 L 12-44 % Monocytes (%) (Auto) 4 0-12 % Eosinophils (%) (Auto) 0 0-10 % Basophils (%) (Auto) 0 0-10 % Neutrophils # (Auto) 11.9 H 1.8-7.8 X 10^3 Lymphocytes # (Auto) 1.5 1.0-4.0 X 10^3 Monocytes # (Auto) 0.6 0.0-1.0 X 10^3 Eosinophils # (Auto) 0.0 0.0-0.3 10^3/uL Basophils # (Auto) 0.0 0.0-0.1 10^3/uL Neutrophils % (Manual) 80 % Lymphocytes % (Manual) 15 % Monocytes % (Manual) 4 % Eosinophils % (Manual) 0 % Basophils % (Manual) 0 % Band Neutrophils 1 % Blood Morphology Comment NORMAL Sodium Level 142 135-145 MMOL/L Potassium Level 5.0 3.6-5.0 MMOL/L Chloride Level 98 98-107 MMOL/L Carbon Dioxide Level 37 H 21-32 MMOL/L Anion Gap 7 5-14 MMOL/L Blood Urea Nitrogen 23 H 7-18 MG/DL Creatinine 1.14 0.60-1.30 MG/DL Estimat Glomerular Filtration Rate > 60 BUN/Creatinine Ratio 20 Glucose Level 209 H 70-105 MG/DL Calcium Level 9.3 8.5-10.1 MG/DL Magnesium Level 2.4 1.8-2.4 MG/DL Total Bilirubin 1.1 H 0.1-1.0 MG/DL Aspartate Amino Transf (AST/SGOT) 19 5-34 U/L Alanine Aminotransferase (ALT/SGPT) 59 H 0-55 U/L Alkaline Phosphatase 80 40-136 U/L B-Type Natriuretic Peptide 139.8 H <100.0 PG/ML Total Protein 6.7 6.4-8.2 GM/DL Albumin 3.9 3.2-4.5 GM/DL Digoxin Level 0.38 L 0.80-2.00 NG/ML Radiology NAME: KAYA LAUREN [facility] REC#: [id number] PT STATUS: ADM IN : 1960 PHYSICIAN: ARIANNA GUPTA MD ADMIT DATE: 07/25/17/ICU Signed Date of Exam: 07/25/17 CHEST 1 VIEW, AP/PA ONLY Indication: Lower extremity swelling. Comparison: 07/21/2009 Findings: Single frontal view of the chest is obtained. Heart size is normal. There is no central venous congestion. No pneumothorax or pleural fluid. There is mild elevation of the left diaphragm which is unchanged. Increase in interstitial markings appears similar to the prior study. No focal pneumonia is seen. Impression: No acute abnormality is seen. No significant interval change from the prior study. Dictated by: Dictated on workstation # [id number] Dict: 07/25/17 1225 Trans: 07/25/17 1542 Interpreted by: SHAZIA HEAD DO Electronically signed by: SHAZIA HEAD DO 07/25/17 1542 Physical Exam-(CHC) Physical Exam Vital Signs VS - Last 72 Hours, by Label 07/25/17 07/25/17 07/25/17 07/25/17 12:05 14:18 14:33 14:56 Temp 97.9 98.2 Pulse 160 133 115 Resp 17 18 20 B/P (MAP) 126/90 (102) 124/79 101/82 (88) 159/98 (118) Pulse Ox 94 95 92 O2 Delivery Nasal Cannula Nasal Cannula O2 Flow Rate 3.00 3.00 07/25/17 07/25/17 07/25/17 07/25/17 15:00 15:00 15:05 15:15 Pulse 114 110 145 Resp 20 20 B/P (MAP) 112/87 (95) 116/94 (101) Pulse Ox 94 95 94 O2 Delivery Nasal Cannula Nasal Cannula Nasal Cannula O2 Flow Rate 3.00 3.00 3.00 07/25/17 07/25/17 07/25/17 07/25/17 15:30 15:45 16:00 16:00 Pulse 121 133 106 Resp 20 20 22 B/P (MAP) 108/101 (103) 112/73 (86) 121/95 (104) Pulse Ox 94 93 95 94 O2 Delivery Nasal Cannula Nasal Cannula Nasal Cannula Nasal Cannula O2 Flow Rate 3.00 3.00 3.00 3.00 07/25/17 07/25/17 07/25/17 07/25/17 16:15 16:30 17:00 18:00 Pulse 109 113 111 91 Resp 22 22 22 22 B/P (MAP) 128/78 (95) 113/90 (98) 114/88 (97) 96/82 (87) Pulse Ox 94 94 94 93 O2 Delivery Nasal Cannula Nasal Cannula Nasal Cannula Nasal Cannula O2 Flow Rate 3.00 3.00 3.00 3.00 07/25/17 07/25/17 07/25/17 07/25/17 19:00 20:00 20:22 21:00 Temp 97.8 Pulse 96 155 Resp 22 B/P (MAP) 130/85 (100) Pulse Ox 95 93 93 O2 Delivery Nasal Cannula Nasal Cannula Nasal Cannula O2 Flow Rate 3.00 3.00 3.00 07/25/17 07/25/17 07/26/17 07/26/17 21:43 22:14 00:00 00:00 Temp 98.1 Pulse 150 80 B/P (MAP) 110/91 (97) 97/54 (68) Pulse Ox 92 92 95 95 O2 Delivery Nasal Cannula Nasal Cannula Nasal Cannula Nasal Cannula O2 Flow Rate 3.00 3.00 3.00 3.00 07/26/17 07/26/17 07/26/17 07/26/17 01:00 04:00 04:00 07:00 Temp 97.6 Pulse 88 73 74 B/P (MAP) 118/63 (81) Pulse Ox 95 95 O2 Delivery Nasal Cannula Nasal Cannula O2 Flow Rate 3.00 3.00 07/26/17 07/26/17 07/26/17 07/26/17 07:12 08:00 08:00 08:00 Temp 97.4 Pulse 74 Resp 18 B/P (MAP) 123/67 (85) Pulse Ox 92 95 94 95 O2 Delivery Nasal Cannula Nasal Cannula Nasal Cannula Nasal Cannula O2 Flow Rate 3.00 3.00 3.00 3.00 Capillary Refill : Less Than 3 Seconds General Appearance: no apparent distress Eyes: Bilateral Eye Normal Inspection HEENT: pharynx normal Neck: non-tender, supple Respiratory: lungs clear Cardiovascular: regular rate, rhythm (Now that he is in the ICU) Gastrointestinal: soft Rectal: deferred Extremities: swelling (The ankles noted) Assessment/Plan Assessment/Plan Admission Dx 1. Atrial fibrillation with rapid ventricular response -Cardiology consultation -Admit to ICU for further cardiac rhythm and rate monitoring 2 Peripheral edema -Diuretics to be evaluated Admission Status: Observation Reason for Inpatient Admission: Further monitoring of cardiac rate and rhythm Assessment & Plan 1. Atrial fibrillation with rapid ventricular response 2 Peripheral edema Clinical Quality Measures DVT/VTE Risk/Contraindication: Risk Factor Score Per Nursin RFS Level Per Nursing on Admit: 2=Moderate ALENA MATTHEWS MD Jul 26, 2017 09:05
[2017-07-26 12:00] VITALS: BP 117/63
--- NOTE | 2017-07-26 12:28 | Consultation-Cardiology ---
HPI-Cardiology Cardiology Consultation: Date of Consultation 07/26/17 Time Seen by Provider: 11:50 Date of Admission Attending Physician Tim Velazco MD Admitting Physician [facility] Consulting Physician EULA COLLAZO MD, MA, FACP, FACC, FSCAI, CCDS HPI: Chief Complaint: CC: Swelling of the feet HPI: 56 yo man with recent hosp for ac on ch resp failure, d/c'd 07/21/17, admitted through ER yesterday after he had presented for evaluation of swelling of the feet. Had been concerned that feet were more swollen than usual (mostly when dependent); no leg swelling. Did not have other symptoms. Has chronic NAGEL, but symptoms are currently at usual baseline. Does not report palp or syncope. Does not report cp. Notes some gen malaise Review of Systems-Cardiology Review of Systems Constitutional: malaise, tiredness, No weight loss, No weight gain Eyes: No vision change Ears/Nose/Throat: No ear discharge, No nasal drainage, No recent hearing loss Respiratory: As described under HPI Cardiovascular: As described under HPI Gastrointestinal: No constipation, No diarrhea, No nausea, No vomiting Genitourinary: No dysuria, No hematuria, No urine frequency changes Musculoskeletal: back pain (chronic) Skin: No rash, No ulcerations Psychiatric/Neurological: No focal weakness, No syncope Hematologic: No bleeding abnormalities WMF-Gxadov-Ujkivk Hx Patient Social History Marrital Status: Alcohol Use: Past History Recreational Drug Use: Yes Drug of Choice: PAST HX Smoking Status: Current Someday Smoker Type Used: Cigarettes, Electronic/Vapor Recent Foreign Travel: No Recent Infectious Disease Expo: No Hospitalization with Isolation: Denies Physical Abuse Screen: No Sexual Abuse: No Immunizations Up To Date Tetanus Booster (TDap): Unknown Date of Pneumonia Vaccine: Apr 28, 2009 Date of Influenza Vaccine: Jul 19, 2017 Past Medical History PMH As described under Assessment. Family Medical History Family Medical History: Does not report fam h/o early CAD or SCD Allergies and Home Medications Allergies Coded Allergies: gabapentin (Verified Adverse Reaction, Mild, UPSET STOMACH, 07/17/17) Home Medications Acetaminophen 500 Mg Tablet, 500-1,000 MG PO Q6H PRN for PAIN-MILD, (Reported) Albuterol Sulfate 1 Puff Puff, 2 PUFF IH Q4H PRN for SHORTNESS OF BREATH, ( Reported) 1 PUFF = 90 MCG Apixaban 5 Mg Tablet, 5 MG PO BID, (Reported) Digoxin 250 Mcg Tablet, 250 MCG PO DAILY, (Reported) Diltiazem HCl 180 Mg Cap.er.24h, 180 MG PO DAILY, (Reported) Fluticasone/Vilanterol 1 Each Blst.w.dev, 1 PUFF IH DAILY, (Reported) Guaifenesin 100 Mg/5 Ml Liquid, 10 ML PO Q4H PRN for COUGH, (Reported) Prednisone 20 Mg Tab, 0 PO UD Take 6 tabs(60mg)daily, decrease by 1 tab(10mg) every other day. Prescribed by: TIM VELAZCO on 07/21/17 1050 Patient Home Medication List Home Medication List Reviewed: Yes Physical Exam-Cardiology Physical Exam Vital Signs/I&O Vital Sign - Last 12Hours 07/26/17 07/26/17 07/26/17 07/26/17 01:00 04:00 04:00 07:00 Temp 97.6 Pulse 88 73 74 B/P (MAP) 118/63 (81) Pulse Ox 95 95 O2 Delivery Nasal Cannula Nasal Cannula O2 Flow Rate 3.00 3.00 07/26/17 07/26/17 07/26/17 07/26/17 07:12 08:00 08:00 08:00 Temp 97.4 Pulse 74 Resp 18 B/P (MAP) 123/67 (85) Pulse Ox 92 95 94 95 O2 Delivery Nasal Cannula Nasal Cannula Nasal Cannula Nasal Cannula O2 Flow Rate 3.00 3.00 3.00 3.00 07/26/17 12:00 Pulse Ox 95 O2 Delivery Nasal Cannula O2 Flow Rate 3.00 Intake and Output 07/26/17 00:00 Intake Total 800 ml Output Total 1400 ml Balance -600 ml Capillary Refill : Less Than 3 Seconds Constitutional: AAO x 3, well-developed, well-nourished HEENT: PERRL, EOMI, hearing is well preserved, No xanthelasmas are seen Neck: No carotid bruit, carotid pulses are 2 + bilaterally, with good upstrokes Respiratory: No accessory muscle use, other (good bilat air enty; no crackles or rales) Cardiovascular: regular rate-rhythm, S1 and S2, systolic murmur (faint AMALIA at card base) Gastrointestinal: No tender, soft, No guarding, No rebound, audible bowel sounds Rectal: deferred Extremities: No clubbing, No cyanosis, No significant edema Neurologic/Psychiatric: oriented x 3, grossly intact, power is 5/5 both on sides Skin: No rash on exposed areas, No ulcerations on exposed areas Data Review Labs Laboratory Tests 07/25/17 12:05 A/P-Cardiology Assessment/Admission Diagnosis Paroxysmal atrial flutter with intermittent 2:1 AV conduction, first diagnosed on 07/17/17. Currently NSR with PACs COPD due to chronic tobacco use Hypertension, by history Obesity with BMI 36 Discussion and Recomendations * We reviewed his records and had a detailed discussion with him and his * Repeat labs today * We are increasing doses of long-acting dilt and dig. This is to provide good rate control during his episodes of A Fl * Continue stroke prophylaxis with apixaban * F/u with his councillor [employer], Dr Rankin, with whom he already has an apptt for 07/30/17 Clinical Quality Measures DVT/VTE Risk/Contraindication: Risk Factor Score Per Nursin RFS Level Per Nursing on Admit: 2=Moderate EULA COLLAZO MD FACP FAC CCDS Jul 26, 2017 12:28
[2017-07-26] MEDS ORDERED: DILTIAZEM 180 MG (CARDIZEM CD) CAP PO ONE (12:30)
[2017-07-26] MEDS ORDERED: DIGOXIN 0.125 MG (LANOXIN) TAB PO ONE (12:30)
[2017-07-26 13:11] LABS: BASOPHILS % (AUTO) 0 % (0-10); EOSINOPHILS % (AUTO) 0 % (0-10); HEMATOCRIT 55 % (40-54); HEMOGLOBIN 17.5 G/DL (13.3-17.7); LYMPHOCYTES # (AUTO) 1.3 X 10^3 (1.0-4.0); LYMPHOCYTES % (AUTO) 12 % (12-44); MEAN CORPUSCULAR HEMOGLOBIN 29 PG (25-34); MEAN CORPUSCULAR HGB CONC 32 G/DL (32-36); MEAN CORPUSCULAR VOLUME 90 FL (80-99); MEAN PLATELET VOLUME 10.7 FL (7.4-10.4); MONOCYTES # (AUTO) 0.4 X 10^3 (0.0-1.0); MONOCYTES % (AUTO) 4 % (0-12); NEUTROPHILS # (AUTO) 9.2 X 10^3 (1.8-7.8); NEUTROPHILS % (AUTO) 84 % (42-75); PLATELET COUNT 201 10^3/uL (130-400); RED BLOOD COUNT 6.08 10^6/uL (4.35-5.85); RED CELL DISTRIBUTION WIDTH 15.7 % (10.0-14.5); WHITE BLOOD COUNT 10.9 10^3/uL (4.3-11.0)
[2017-07-26 13:31] LABS: BUN/CREATININE RATIO 19; CALCIUM 8.5 MG/DL (8.5-10.1); CARBON DIOXIDE 37 MMOL/L (21-32); CHLORIDE 95 MMOL/L (98-107); CREATININE SERUM 0.95 MG/DL (0.60-1.30); GFR ESTIMATED > 60; GLUCOSE 231 MG/DL (70-105); MAGNESIUM 2.1 MG/DL (1.8-2.4); SODIUM 136 MMOL/L (135-145)
[2017-07-26] MEDS ORDERED: DIGO250T PO (14:12)
[2017-07-26] MEDS ORDERED: DILT180C90 PO (14:12)
--- OUTSIDE RECORDS SUMMARY | 2017-07-27 03:46 | XMS REPORT | Continuity of Care Document ---
Author Author [facility] Organization [facility] Address Unknown Phone Unavailable Allergies Active Description Code Type Severity Reaction Onset Reported/Identified Relationship to Patient Clinical Status Yes gabapentin Drug Allergy 02/19/2010 Yes gabapentin Drug Allergy N/A N/A 02/19/2010 Yes neurontin neurontin Mild upset stomach 09/30/2011 Yes gabapentin [id number] Drug Allergy Mild UPSET STOMACH 07/17/2017 Medications [...] J1040 DEPO MEDROL 80 MG INJ 04/16/2012 70647 ROUTINE VENIPUNCTURE 07/14/2014 39594 CBC 07/14/2014 6428375 GFR CALC (RESULT ONLY) 07/14/2014 18429 CMP 07/14/2014 20790 LIPID PANEL 07/14/2014 44007 PSA TOTAL 07/14/2014 18165 TSH 07/14/2014 Results Test Result Range Complete [...] Status Pt. Type Provider Facility Loc./Unit Complaint [id number] 07/17/2017 09:25:00 07/21/2017 12:30:00 DIS Inpatient MEGANSAMANRafael DO CHANDANA E [facility] 4TH TACHYCARDIA [id number] 05/02/2014 13:22:00 05/02/2014 15:56:00 DIS Emergency ZULEMA CAMERON [facility] ER LEFT KNEE PAIN [id number] 06/23/2014 12:05:00 Document Registration [id number] 05/03/2012 00:01:00 Document Registration [id number] 09/30/2011 13:29:00 Document Registration [id number] 03/03/2006 13:29:00 Document Registration [id number] 05/02/2014 13:23:02 ACT Document Registration [id number] 07/14/2017 14:00:00 07/14/2017 23:59:59 CLS Outpatient RENA ORR APRN [facility] [id number] 07/14/2014 11:43:00 07/14/2014 23:59:59 CLS Outpatient RENA ORR APRN [id number] 04/16/2012 15:27:00 04/16/2012 23:59:59 CLS Outpatient
[2017-07-27] MEDS ORDERED: DIGOXIN 0.125 MG (LANOXIN) TAB PO SCH (09:00)
--- NOTE | 2017-07-28 16:51 | Physician Query-Final Dx ---
CHENCHO YANEZ 07/28/17 1651: Final Diagnosis Give Final Diagnosis Please give Final Diagnosis ALENA MATTHEWS MD 07/29/17 0720: Final Diagnosis Give Final Diagnosis 1. Atrial flutter with rate controlled 2. COPD 3. HTN CHENCHO YANEZ Jul 28, 2017 16:51 ALENA MATTHEWS MD Jul 29, 2017 07:20
== END 2017-07-26 14:38 | disposition home or self-care (01) | DRG 310 ==
LOC: EDUNIT# 11:52 → ER 11:53 → ICU 13:32
PROVIDERS: ADMIT Family Medicine; ATTEND Family Medicine
DX: I48.92 Unspecified atrial flutter (principal); R60.0 Localized edema; J43.9 Emphysema, unspecified; I11.0 Hypertensive heart disease with heart failure; I50.9 Heart failure, unspecified; E66.9 Obesity, unspecified; F17.210 Nicotine dependence, cigarettes, uncomplicated; Z68.36 Body mass index [BMI] 36.0-36.9, adult
CPT/HCPCS: 36415; 71045; 80048; 80053; 80162; 83735; 83880; 85007; 85025; 85027; 93005; 96374; 96375

== ENCOUNTER → 2017-07-31 | Day surgery (SDC) | payer SELFPAY ==
[2017-07-31] VITALS (10 sets, daily range): BP systolic 107–149; BP diastolic 59–103
[~2017-07-31] VITALS: Ht 185.4 cm; Wt 122.5 kg
[~2017-07-31] MED LIST changes: +DIGO250T PO; +DILT180C84 PO; +LIDOCAINE 2% VISCOUS 15 ML UDC ONE; +NS IV 1000 ML 1,000 ML IV SCH; +NS IV 1000 ML 1,000 ML ONE; +PRED10TA22 PO; +fentaNYL INJECTION 100 MCG/2 ML AMP ONE; +proPOfol 200 MG/20 ML (DIPRIVAN) VIAL IV ONE
--- NOTE | 2017-07-31 10:42 | Progress Note-Standard ---
Standard Progress Note Progress Notes/Assess & Plan Time Seen by Provider: 10:00 Final Diagnosis Consulted for sedation during BRAEDEN/Cardioversion. History obtained, chart reviewed. Versed 2mg IV, Propofol 100mg IV, tolerated procedure well. Mac anesthetic, ASA 3. Report to RN care assumed. LAUREN BAKER CRNA Jul 31, 2017 10:42
--- OUTSIDE RECORDS SUMMARY | 2017-07-31 11:09 | XMS REPORT | Continuity of Care Document ---
Author Author [facility] Organization [facility] Address Unknown Phone Unavailable Allergies Active Description Code Type Severity Reaction Onset Reported/Identified Relationship to Patient Clinical Status Yes gabapentin Drug Allergy 02/19/2010 Yes gabapentin Drug Allergy N/A N/A 02/19/2010 Yes neurontin neurontin Mild upset stomach 09/30/2011 Yes gabapentin [id number] Drug Allergy Mild UPSET STOMACH 07/17/2017 Medications [...] E Ot J18.9 PNEUMONIA, UNSPECIFIED ORGANISM 07/21/2017 BARLENNYDGE DOCHANDANA Ot J44.0 CHRONIC OBSTRUCTIVE PULMON DISEASE W ACU 07/21/2017 BARNIDGE DOCHANDANA Ot J44.1 CHRONIC OBSTRUCTIVE PULMONARY DISEASE W 07/21/2017 B[place]GE DOOGT Rafael Ot J96.21 ACUTE AND CHRONIC RESPIRATORY FAILURE [place] 07/21/2017 BARNIDGE DOCHANDANA Ot R00.0 TACHYCARDIA, UNSPECIFIED 07/21/2017 BARNIDGE DOOGT E Ot Z99.81 DEPENDENCE ON SUPPLEMENTAL OXYGEN 07/21/2017 BARJOSE ANTONIOE DOCHANDANA Ot E66.2 MORBID (SEVERE) OBESITY WITH ALVEOLAR HY 07/21/2017 BARLENNYDGE DOOGT E Ot F17.210 NICOTINE DEPENDENCE, CIGARETTES, UNCOMPL 07/21/2017 BARNIDGE DOOGT E Ot I10 ESSENTIAL (PRIMARY) HYPERTENSION 07/21/2017 BARLENNYDGE DOCHANDANA Ot I48.91 UNSPECIFIED ATRIAL FIBRILLATION 07/21/2017 BARLENNYDGE DOOGT E Ot I48.92 UNSPECIFIED ATRIAL FLUTTER 07/21/2017 BARJOSE ANTONIOCHANDANA Hall DO Ot J18.9 PNEUMONIA, UNSPECIFIED ORGANISM 07/21/2017 BARLENNYDGE DOCHANDANA E Ot J44.0 CHRONIC OBSTRUCTIVE PULMON DISEASE W U 07/21/2017 BARLENNYDGE DOCHANDANA Ot J44.1 CHRONIC OBSTRUCTIVE PULMONARY DISEASE W 07/21/2017 BARLENNYDGE DOCHANDANA Ot J96.21 ACUTE AND CHRONIC RESPIRATORY FAILURE [place] 07/21/2017 BARNIDGE DOOGT E Ot R00.0 TACHYCARDIA, UNSPECIFIED 07/21/2017 BARNIDGE DOFELICIANOCHANDANA E Ot Z68.35 BODY MASS INDEX (BMI) 35.0-35.9, ADULT 07/21/2017 BARNIDGE DOFELICIANOCHANDANA E Ot Z99.81 DEPENDENCE ON SUPPLEMENTAL OXYGEN 07/25/2017 Ot 836.0 TEAR MED MENISC KNEE-CUR 07/25/2017 Ot E000.8 OTHER EXTERNAL CAUSE STATUS 07/25/2017 Ot E849.0 ACCIDENT IN HOME 07/25/2017 Ot E927.0 OVEREXERTION FROM SUDDEN STRENUOUS MOVEM Procedures Code Description Performed By Performed On JOINT INJECTION- INTERMEDIATE JOINT 04/16/2012 J1040 DEPO MEDROL 80 MG INJ 04/16/2012 14292 ROUTINE VENIPUNCTURE 07/14/2014 17044 CBC 07/14/2014 [id number] GFR CALC (RESULT ONLY) 07/14/2014 54011 CMP 07/14/2014 67212 LIPID PANEL 07/14/2014 31882 PSA TOTAL 07/14/2014 53183 TSH 07/14/2014 Results Test Result Range Complete [...] plasma calcium measurement (mass/volume) 8.9 mg/dL 8.5-10.1 Complete blood count (CBC) with automated white blood cell (WBC) differential - 07/25/17 12:05 Blood leukocytes automated count (number/volume) 14.0 10*3/uL 4.3-11.0 Blood erythrocytes automated count (number/volume) 6.68 10*6/uL 4.35-5.85 Venous blood hemoglobin measurement (mass/volume) 19.2 g/dL 13.3-17.7 Blood hematocrit (volume fraction) 60 % 40-54 Automated erythrocyte mean corpuscular volume 90 [foz_us] 80-99 Automated erythrocyte mean corpuscular hemoglobin (mass per erythrocyte) 29 pg 25-34 Automated erythrocyte mean corpuscular hemoglobin concentration measurement ( mass/volume) 32 g/dL 32-36 Automated erythrocyte distribution width ratio 17.4 % 10.0-14.5 Automated blood platelet count (count/volume) 225 10*3/uL 130-400 Automated blood platelet mean volume measurement 10.4 [foz_us] 7.4-10.4 Automated blood neutrophils/100 leukocytes 85 % 42-75 Automated blood lymphocytes/100 leukocytes 11 % 12-44 Blood monocytes/100 leukocytes 4 % 0-12 Automated blood eosinophils/100 leukocytes 0 % 0-10 Automated blood basophils/100 leukocytes 0 % 0-10 Blood neutrophils automated count (number/volume) 11.9 10*3 1.8-7.8 Blood lymphocytes automated count (number/volume) 1.5 10*3 1.0-4.0 Blood monocytes automated count (number/volume) 0.6 10*3 0.0-1.0 Automated eosinophil count 0.0 10*3/uL 0.0-0.3 Automated blood basophil count (count/volume) 0.0 10*3/uL 0.0-0.1 Comprehensive metabolic panel - 07/25/17 12:05 Serum or plasma sodium measurement (moles/volume) 142 mmol/L 135-145 Serum or plasma potassium measurement (moles/volume) 5.0 mmol/L 3.6-5.0 Serum or plasma chloride measurement (moles/volume) 98 mmol/L 98-107 Carbon dioxide 37 mmol/L 21-32 Serum or plasma anion gap determination (moles/volume) 7 mmol/L 5-14 Serum or plasma urea nitrogen measurement (mass/volume) 23 mg/dL 7-18 Serum or plasma creatinine measurement (mass/volume) 1.14 mg/dL 0.60-1.30 Serum or plasma urea nitrogen/creatinine mass ratio 20 NRG Serum or plasma creatinine measurement with calculation of estimated glomerular filtration rate > NRG Serum or plasma glucose measurement (mass/volume) 209 mg/dL 70-105 Serum or plasma calcium measurement (mass/volume) 9.3 mg/dL 8.5-10.1 Serum or plasma total bilirubin measurement (mass/volume) 1.1 mg/dL 0.1-1.0 Serum or plasma alkaline phosphatase measurement (enzymatic activity/volume) 80 U/L 40-136 Serum or plasma aspartate aminotransferase measurement (enzymatic activity/ volume) 19 U/L 5-34 Serum or plasma alanine aminotransferase measurement (enzymatic activity/volume ) 59 U/L 0-55 Serum or plasma protein measurement (mass/volume) 6.7 g/dL 6.4-8.2 Serum or plasma albumin measurement (mass/volume) 3.9 g/dL 3.2-4.5 Magnesium - 07/25/17 12:05 Magnesium 2.4 mg/dL 1.8-2.4 Serum or plasma lithium measurement (moles/volume) - 07/25/17 12:05 BNP level 139.8 pg/mL <100.0 Digoxin - 07/25/17 12:05 Digoxin 0.38 ng/mL 0.80-2.00 Blood manual differential performed detection - 07/25/17 12:05 Blood monocytes/100 leukocytes 4 % NRG Manual blood segmented neutrophils/100 leukocytes 80 % NRG Blood band neutrophils/100 leukocytes 1 % NRG Manual blood lymphocytes/100 leukocytes 15 % NRG Manual eosinophils/100 leukocytes in nose 0 % NRG Manual blood basophils/100 leukocytes 0 % NRG Blood erythrocyte morphology finding identification NORMAL NRG Complete blood count (CBC) with automated white blood cell (WBC) differential - 07/26/17 13:01 Blood leukocytes automated count (number/volume) 10.9 10*3/uL 4.3-11.0 Blood erythrocytes automated count (number/volume) 6.08 10*6/uL 4.35-5.85 Venous blood hemoglobin measurement (mass/volume) 17.5 g/dL 13.3-17.7 Blood hematocrit (volume fraction) 55 % 40-54 Automated erythrocyte mean corpuscular volume 90 [foz_us] 80-99 Automated erythrocyte mean corpuscular hemoglobin (mass per erythrocyte) 29 pg 25-34 Automated erythrocyte mean corpuscular hemoglobin concentration measurement ( mass/volume) 32 g/dL 32-36 Automated erythrocyte distribution width ratio 15.7 % 10.0-14.5 Automated blood platelet count (count/volume) 201 10*3/uL 130-400 Automated blood platelet mean volume measurement 10.7 [foz_us] 7.4-10.4 Automated blood neutrophils/100 leukocytes 84 % 42-75 Automated blood lymphocytes/100 leukocytes 12 % 12-44 Blood monocytes/100 leukocytes 4 % 0-12 Automated blood eosinophils/100 leukocytes 0 % 0-10 Automated blood basophils/100 leukocytes 0 % 0-10 Blood neutrophils automated count (number/volume) 9.2 10*3 1.8-7.8 Blood lymphocytes automated count (number/volume) 1.3 10*3 1.0-4.0 Blood monocytes automated count (number/volume) 0.4 10*3 0.0-1.0 Automated eosinophil count 0.0 10*3/uL 0.0-0.3 Automated blood basophil count (count/volume) 0.0 10*3/uL 0.0-0.1 Whole blood basic metabolic panel - 07/26/17 13:01 Serum or plasma sodium measurement (moles/volume) 136 mmol/L 135-145 Serum or plasma potassium measurement (moles/volume) 5.0 mmol/L 3.6-5.0 Serum or plasma chloride measurement (moles/volume) 95 mmol/L 98-107 Carbon dioxide 37 mmol/L 21-32 Serum or plasma anion gap determination (moles/volume) 4 mmol/L 5-14 Serum or plasma urea nitrogen measurement (mass/volume) 18 mg/dL 7-18 Serum or plasma creatinine measurement (mass/volume) 0.95 mg/dL 0.60-1.30 Serum or plasma urea nitrogen/creatinine mass ratio 19 NRG Serum or plasma creatinine measurement with calculation of estimated glomerular filtration rate > NRG Serum or plasma glucose measurement (mass/volume) 231 mg/dL 70-105 Serum or plasma calcium measurement (mass/volume) 8.5 mg/dL 8.5-10.1 Magnesium - 07/26/17 13:01 Magnesium 2.1 mg/dL 1.8-2.4 Encounters ACCT No. Visit Date/Time Discharge Status Pt. Type Provider Facility Loc./Unit Complaint [id number] 07/25/2017 13:32:00 07/26/2017 14:38:00 DIS Inpatient TIM VELAZCO MD [facility] ICU A-FLUTTER W/ RVR EDEMA [id number] 07/17/2017 09:25:00 07/21/2017 12:30:00 DIS Inpatient CHANDANA BHAT DO [facility] 4TH TACHYCARDIA [id number] 05/02/2014 13:22:00 05/02/2014 15:56:00 DIS Emergency ZULEMA CAMERON [facility] ER LEFT KNEE PAIN [id number] 06/23/2014 12:05:00 Document Registration [id number] 05/03/2012 00:01:00 Document Registration [id number] 09/30/2011 13:29:00 Document Registration [id number] 03/03/2006 13:29:00 Document Registration [email or web address] 05/02/2014 13:23:02 ACT Document Registration [id number] 07/14/2017 14:00:00 07/14/2017 23:59:59 CLS Outpatient RENA ORR APRN [facility] [place] [id number] 07/14/2014 11:43:00 07/14/2014 23:59:59 CLS Outpatient RENA ORR APRN [id number] 04/16/2012 15:27:00 04/16/2012 23:59:59 CLS Outpatient
== END | disposition home or self-care (01) ==
LOC: CATH 07:38
PROVIDERS: ATTEND Internal Medicine Interventional Cardiology
DX: I48.0 Paroxysmal atrial fibrillation (principal); I10 Essential (primary) hypertension; J44.9 Chronic obstructive pulmonary disease, unspecified; E66.9 Obesity, unspecified; Z68.35 Body mass index [BMI] 35.0-35.9, adult; Z79.01 Long term (current) use of anticoagulants; Z79.899 Other long term (current) drug therapy; Z99.81 Dependence on supplemental oxygen; Z87.891 Personal history of nicotine dependence
CPT/HCPCS: 93005; 93320; 93325

== ENCOUNTER 2017-08-06 11:44 | Inpatient (IN) | payer MEDICAID, OTHER ==
[~2017-08-06] VITALS: Ht 188 cm; Wt 122.5 kg
[2017-08-06] VITALS (12 sets, daily range): BP systolic 90–148; BP diastolic 43–86
[~2017-08-06 11:44] MED LIST changes: -LIDOCAINE 2% VISCOUS 15 ML UDC ONE; -NS IV 1000 ML 1,000 ML IV SCH; -NS IV 1000 ML 1,000 ML ONE; -fentaNYL INJECTION 100 MCG/2 ML AMP ONE; -proPOfol 200 MG/20 ML (DIPRIVAN) VIAL IV ONE
[2017-08-06] MEDS ORDERED: ASPIRIN 81 MG CHEW (CHILDREN'S ASA) PO ONE (12:00)
[2017-08-06] MEDS ORDERED: meTOprolol 5 MG/5 ML (LOPRESSOR) VIAL IV ONE (12:15)
[2017-08-06] MEDS ORDERED: VERAPAMIL 10 MG/4 ML (CALAN) VIAL IV ONE ×3 (12:15→13:15)
--- NOTE | 2017-08-06 12:25 | ED Cardiac General ---
History of Present Illness General Chief Complaint: Cardiac/General Problems Stated Complaint: HR AT 142 Source: patient Exam Limitations: no limitations History of Present Illness Date Seen by Provider: Aug 06, 2017 Time Seen by Provider: 12:10 Initial Comments Here with report of elevated heart rate. Noted that he wasn't feeling good and asked his to check his vital signs and they found that his heart rate was in the 150s. Patient has history of A. fib with RVR and actually had BRAEDEN last week for evaluation prior to cardioversion. He apparently converted during the BRAEDEN procedure and cardioversion was not done. He is on digoxin but did have misunderstanding about his dosing and was taking only one of his pills instead of one and a half as was instructed. He did take the dose of 1-1/2 pills today. Does have a palpitation feeling in the chest but not chest pain. Does complain of some shortness of air. Typically on oxygen and is on that now. At rest he is without breathing problems. Denies recent fevers. Otherwise taking his meds as directed. Timing/Duration: 1-3 hours Severity: moderate Location: central (palpitations) Activities at Onset: none Prior CP/Workup: cardiac cath, echocardiography, stress test Modifying Factors: worse with exercise; improves with oxygen, improves with rest NTG SL CARPET LOOM FIXER: No ASA po CARPET LOOM FIXER: No (patient is on eliquis) Associated Systoms: No Chest Pain, No Cough, No Fever/Chills, No Nausea/ Vomiting; Shortness of Air, Weakness Allergies and Home Medications Allergies Coded Allergies: gabapentin (Verified Adverse Reaction, Mild, UPSET STOMACH, 07/17/17) Home Medications Acetaminophen 500 Mg Tablet, 500-1,000 MG PO Q6H PRN for PAIN-MILD, (Reported) Albuterol Sulfate 1 Puff Puff, 2 PUFF IH Q4H PRN for SHORTNESS OF BREATH, ( Reported) 1 PUFF = 90 MCG Apixaban 5 Mg Tablet, 5 MG PO BID, (Reported) Digoxin 250 Mcg Tablet, 250 MCG PO DAILY, (Reported) Diltiazem HCl 180 Mg Cap.er.24h, 360 MG PO DAILY, (Reported) Fluticasone/Vilanterol 1 Each Blst.w.dev, 1 PUFF IH DAILY, (Reported) Guaifenesin 100 Mg/5 Ml Liquid, 10 ML PO Q4H PRN for COUGH, (Reported) Prednisone 10 Mg Tab.ds.pk, 10 MG PO DAILY, (Reported) Patient Home Medication List Home Medication List Reviewed: Yes Review of Systems Constitutional: see HPI; No chills, No fever EENTM: No Symptoms Reported Respiratory: Cough, Shortness of Air Cardiovascular: Denies Chest Pain; Irregular Heart Rate, Lightheadedness, Palpitations Gastrointestinal: Denies Abdominal Pain, Denies Nausea, Denies Vomiting Genitourinary: No Symptoms Reported Musculoskeletal: no symptoms reported Skin: no symptoms reported All Other Systems Reviewed Negative Unless Noted: Yes Past Duttkla-Qeseek-Vmzqpv Hx Patient Social History Alcohol Use: Denies Use Recreational Drug Use: No Drug of Choice: PAST HX Smoking Status: Former Smoker Type Used: Cigarettes Former Smoker, Quit: Jul 17, 2017 Recent Foreign Travel: No Contact w/Someone Who Travel: No Recent Hopitalizations: Yes (CHF,COPD, A-FIB) Immunizations Up To Date Tetanus Booster (TDap): Unknown Date of Pneumonia Vaccine: Apr 28, 2009 Date of Influenza Vaccine: Jul 19, 2017 Seasonal Allergies Seasonal Allergies: Yes Past Medical History Surgeries: Yes (NECK FUSION, CARPAL TUNNEL, GANGLION CYST) Respiratory: Yes COPD, Emphysema Currently Using CPAP: No Currently Using BIPAP: No Cardiac: Yes (HEART CATH 2000 ([facility]), congestive heart failure) Atrial Fibrillation Neurological: No Reproductive Disorders: No Sexually Transmitted Disease: No HIV/AIDS: No Genitourinary: No Gastrointestinal: No Musculoskeletal: No Endocrine: No HEENT: Yes Cataract Cancer: No Psychosocial: No Integumentary: No Blood Disorders: No Adverse Reaction/Blood Tranf: No Family Medical History Reviewed Nursing Family Hx Heart Disease, Cancer, CAD Under 55 Years Old Physical Exam Vital Signs Vital Signs - First Documented 08/06/17 11:44 Temp 98.0 Pulse 133 Resp 20 B/P (MAP) 110/80 (90) Pulse Ox 93 O2 Delivery Nasal Cannula O2 Flow Rate 3.00 Capillary Refill : General Appearance: No Apparent Distress, WD/WN HEENT: PERRL/EOMI, Pharynx Normal Neck: Non Tender, Supple Respiratory: Lungs Clear, Normal Breath Sounds Cardiovascular: No Murmur, Irregularly Irregular, Tachycardia Gastrointestinal: Non Tender, Soft Extremity: Normal Range of Motion, Non Tender Neurologic/Psychiatric: Alert, Oriented x3 Skin: Normal Color, Warm/Dry Progress/Results/Core Measures Lab Results Laboratory Tests Test 08/06/17 12:15 Range/Units White Blood Count 10.0 4.3-11.0 10^3/uL Red Blood Count 6.01 H 4.35-5.85 10^6/uL Hemoglobin 17.1 13.3-17.7 G/DL Hematocrit 52 40-54 % Mean Corpuscular Volume 87 80-99 FL Mean Corpuscular Hemoglobin 29 25-34 PG Mean Corpuscular Hemoglobin Concent 33 32-36 G/DL Red Cell Distribution Width 15.1 H 10.0-14.5 % Platelet Count 162 130-400 10^3/uL Mean Platelet Volume 11.0 H 7.4-10.4 FL Neutrophils (%) (Auto) 55 42-75 % Lymphocytes (%) (Auto) 33 12-44 % Monocytes (%) (Auto) 9 0-12 % Eosinophils (%) (Auto) 4 0-10 % Basophils (%) (Auto) 0 0-10 % Neutrophils # (Auto) 5.5 1.8-7.8 X 10^3 Lymphocytes # (Auto) 3.2 1.0-4.0 X 10^3 Monocytes # (Auto) 0.9 0.0-1.0 X 10^3 Eosinophils # (Auto) 0.4 H 0.0-0.3 10^3/uL Basophils # (Auto) 0.0 0.0-0.1 10^3/uL Prothrombin Time 12.3 12.2-14.7 SEC INR Comment 0.9 0.8-1.4 Activated Partial Thromboplast Time 33 24-35 SEC Sodium Level 139 135-145 MMOL/L Potassium Level 4.5 3.6-5.0 MMOL/L Chloride Level 100 98-107 MMOL/L Carbon Dioxide Level 25 21-32 MMOL/L Anion Gap 14 5-14 MMOL/L Blood Urea Nitrogen 14 7-18 MG/DL Creatinine 1.02 0.60-1.30 MG/DL Estimat Glomerular Filtration Rate > 60 BUN/Creatinine Ratio 14 Glucose Level 312 H 70-105 MG/DL Calcium Level 8.8 8.5-10.1 MG/DL Magnesium Level 2.1 1.8-2.4 MG/DL Total Bilirubin 0.4 0.1-1.0 MG/DL Aspartate Amino Transf (AST/SGOT) 12 5-34 U/L Alanine Aminotransferase (ALT/SGPT) 24 0-55 U/L Alkaline Phosphatase 103 40-136 U/L Myoglobin 87.8 10.0-92.0 NG/ML Troponin I < 0.30 <0.30 NG/ML B-Type Natriuretic Peptide 40.7 <100.0 PG/ML Total Protein 6.8 6.4-8.2 GM/DL Albumin 3.9 3.2-4.5 GM/DL Digoxin Level 0.65 L 0.80-2.00 NG/ML My Orders Orders - MARY CLEVELAND MD Verapamil Injection (Calan Injection) (08/06/17 12:30) Verapamil Injection (Calan Injection) (08/06/17 12:27) Verapamil Injection (Calan Injection) (08/06/17 13:15) Verapamil Injection (Calan Injection) (08/06/17 13:16) Medications Given in ED Current Medications Medications Dose Ordered Sig/Mary Route Start Time Stop Time Status Last Admin Dose Admin Aspirin 324 mg ONCE ONCE PO 08/06/17 12:00 08/06/17 12:01 DC 08/06/17 12:32 324 MG Verapamil HCl 5 mg STK-MED ONCE IV 08/06/17 12:27 08/06/17 12:31 DC 08/06/17 12:33 5 MG Verapamil HCl 5 mg STK-MED ONCE IV 08/06/17 13:16 08/06/17 13:20 DC 08/06/17 13:22 5 MG Vital Signs/I&O 08/06/17 11:44 Temp 98.0 Pulse 133 Resp 20 B/P (MAP) 110/80 (90) Pulse Ox 93 O2 Delivery Nasal Cannula O2 Flow Rate 3.00 Progress Note : Progress Note Seen and evaluated. IV, labs, EKG and chest x-ray ordered. No chest pain so no aspirin. Patient is on oral anticoagulation with apixaban and he reports that he is not missed any doses. Verapamil 5 mg by mouth ordered. Monitor patient. 1305: Dr. Rankin has seen the patient in the ER. We will continue verapamil as inpatient. We will give repeat dose of verapamil 5 mg IV now. Patient to be admitted to the ICU. Possible cardioversion tomorrow if this does not resolve. Patient to be nothing by mouth after midnight. 1338: Case discussed with Dr. Recio and she accepts patient for admission, inpatient status. Patient to be nothing by mouth after midnight. Currently heart rate 110s to 120s. No chest pain. Admit to the ICU. Patient and family agree with plan. Initial ECG Impression Date: Aug 06, 2017 Initial ECG Impression Time: 11:57 Initial ECG Rate: 139 Initial ECG Rhythm: A Fib/Flutter Initial ECG Impression: Atrial Fibrillation w/RVR Initial ECG Comparisson: Changed Comment Intrafibrillation with rapid ventricular rate. Right axis deviation. No evidence of ST elevation VT. Interpreted by me. Diagonstic Imaging: Xray Plain Films/CT/US/NM/MRI: chest Comments NAME: K[facility]A LAUREN [facility] REC#: [id number] PT STATUS: REG ER : 1960 PHYSICIAN: ADIEL MCKINNEY APRN ADMIT DATE: 08/06/17/ER Signed Date of Exam: 08/06/17 CHEST 1 VIEW, AP/PA ONLY INDICATION: Tachycardia. TIME OF EXAM: 12:08 p.m. Correlation is made with prior study of 07/25/2017. FINDINGS: The heart size is stable. Mild chronic elevation of the left hemidiaphragm is stable. There appears to be some minimal infiltrate or atelectasis in the right base. Otherwise, the lungs are clear. The pulmonary vascularity is normal. No effusion or pneumothorax is seen. IMPRESSION: Minimal right basilar infiltrate or atelectasis. The study is otherwise unremarkable. Dictated by: Dictated on workstation # [id number] Dict: 08/06/17 1233 Trans: 08/06/17 1327 Interpreted by: RANDALL YANEZ MD Electronically signed by: RANDALL YANEZ MD 08/06/17 1327 Reviewed: Reviewed by Me Departure Communication (Admissions) Time/Spoke to Admitting Phy: 13:38 Time/Spoke to Consulting Phy: 13:00 Impression Primary Impression: Atrial fibrillation with RVR Disposition: ADMITTED INPATIENT Condition: Stable Admissions Decision to Admit Reason: Admit from ER (General) Decision to Admit/Date: Aug 06, 2017 Time/Decision to Admit Time: 13:00 Departure-Patient Inst. Referrals: [facility] (PCP/Family) Primary Care Physician MARY CLEVELAND MD Aug 06, 2017 12:25
[2017-08-06] MEDS ORDERED: VERAPAMIL 5 MG/2 ML (CALAN) VIAL IV ONE ×2 (12:27→13:16)
--- NOTE | 2017-08-06 12:38 | Diagnostic Imaging Report ---
INDICATION: Tachycardia. TIME OF EXAM: 12:08 p.m. Correlation is made with prior study of 07/25/2017. FINDINGS: The heart size is stable. Mild chronic elevation of the left hemidiaphragm is stable. There appears to be some minimal infiltrate or atelectasis in the right base. Otherwise, the lungs are clear. The pulmonary vascularity is normal. No effusion or pneumothorax is seen. IMPRESSION: Minimal right basilar infiltrate or atelectasis. The study is otherwise unremarkable. Dictated by: Dictated on workstation # [id number]
[2017-08-06 12:53] LABS: BASOPHILS % (AUTO) 0 % (0-10); EOSINOPHILS # (AUTO) 0.4 10^3/uL (0.0-0.3); EOSINOPHILS % (AUTO) 4 % (0-10); HEMATOCRIT 52 % (40-54); HEMOGLOBIN 17.1 G/DL (13.3-17.7); LYMPHOCYTES # (AUTO) 3.2 X 10^3 (1.0-4.0); LYMPHOCYTES % (AUTO) 33 % (12-44); MEAN CORPUSCULAR HEMOGLOBIN 29 PG (25-34); MEAN CORPUSCULAR HGB CONC 33 G/DL (32-36); MEAN CORPUSCULAR VOLUME 87 FL (80-99); MONOCYTES # (AUTO) 0.9 X 10^3 (0.0-1.0); MONOCYTES % (AUTO) 9 % (0-12); NEUTROPHILS # (AUTO) 5.5 X 10^3 (1.8-7.8); NEUTROPHILS % (AUTO) 55 % (42-75); PLATELET COUNT 162 10^3/uL (130-400); RED BLOOD COUNT 6.01 10^6/uL (4.35-5.85); RED CELL DISTRIBUTION WIDTH 15.1 % (10.0-14.5)
[2017-08-06 13:03] LABS: INR 0.9 (0.8-1.4); PROTHROMBIN TIME PATIENT 12.3 SEC (12.2-14.7)
[2017-08-06 13:15] LABS: ALANINE AMINOTRANSFERASE 24 U/L (0-55); ALBUMIN 3.9 GM/DL (3.2-4.5); ALKALINE PHOSPHATASE 103 U/L (40-136); BILIRUBIN,TOTAL 0.4 MG/DL (0.1-1.0); BUN/CREATININE RATIO 14; CALCIUM 8.8 MG/DL (8.5-10.1); CARBON DIOXIDE 25 MMOL/L (21-32); CHLORIDE 100 MMOL/L (98-107); CREATININE SERUM 1.02 MG/DL (0.60-1.30); GFR ESTIMATED > 60; GLUCOSE 312 MG/DL (70-105); MAGNESIUM 2.1 MG/DL (1.8-2.4); POTASSIUM 4.5 MMOL/L (3.6-5.0); SODIUM 139 MMOL/L (135-145); TOTAL PROTEIN 6.8 GM/DL (6.4-8.2)
[2017-08-06 13:26] LABS: MYOGLOBIN SERUM 87.8 NG/ML (10.0-92.0)
--- NOTE | 2017-08-06 15:05 | Consultation-Cardiology ---
HPI-Cardiology Cardiology Consultation: Date of Consultation 08/06/17 Date of Admission Attending Physician Pam Recio MD Admitting Physician [facility] Consulting Physician Marisol RANKIN MD HPI: Time Seen by Provider: 13:00 Chief Complaint: Atrial fibrillation with rapid ventricular rate. This is a 56-year-old gentleman who I first saw as an in-hospital consultation on 07/17/2017. He is a patient of [facility] and Dr. Longo. He was directly admitted from Dr. Longo's office for significant shortness of breath. The patient has history of active smoking and COPD. He was admitted for COPD exacerbation. He was not in congestive heart failure however was found to be in atrial flutter with 2-1 AV block. He was treated with amiodarone infusion and IV verapamil every 3 hours. He spontaneously converted to sinus rhythm. He was also started on Eliquis. For his COPD exacerbation he was treated with IV antibiotics and steroids. he also had basilar pneumonia. Echocardiogram done on 07/17/2017 showed normal LV size and function. There is mild concentric hypertrophy. EF 55-65 percent. Normal RV size and function. No significant valvular heart disease. Patient improved significantly and was discharged subsequently. However he presented again on 07/26/2017 with swelling of the feet. Few days ago he had an outpatient visit for transesophageal echocardiogram assisted cardioversion. During transesophageal echocardiogram the patient converted to sinus rhythm. There was no left atrial or left atrial appendage clot. He was discharged on the same medications which included digoxin, Cardizem and Eliquis. He presents today for rapid heart beating and was found to be in atrial fibrillation with rapid ventricular rate. Review of Systems-Cardiology Review of Systems Constitutional: No As described under HPI, No no symptoms reported, No chills, No fever, No lightheadedness, No malaise, No tiredness, No weight loss, No weight gain, No other Eyes: No As described under HPI, No no symptoms reported, No blindness, No blurred vision, No contact lenses, No drainage, No decreased acuity, No foreign body sensation, No glasses, No inflammation, No pain, No photophobia, No previous injury, No shadows, No tunnel vision, No other, No vision change Ears/Nose/Throat: No As described under HPI, No no symptoms reported, No chronic hearing loss, No epistaxis, No ear discharge, No ear pain, No loose teeth, No mouth pain, No mouth swelling, No nasal drainage, No nose pain, No recent hearing loss, No throat pain, No throat swelling, No ulcerations, No other Respiratory: No no symptoms reported, No As described under HPI, No cough, No orthopnea, No shortness of breath, No SOB with excertion, No SOB at rest, No stridor, No wheezing, No other Cardiovascular: No no symptoms reported, No As described under HPI, No chest pain, No edema; irregular heart rate; No lightheadedness; palpitations; No syncope, No other Gastrointestinal: No no symptoms reported, No As described under HPI, No abdomen distended, No abdominal pain, No blood streaked bowels, No constipation , No diarrhea, No difficulty swallowing, No nausea, No poor appetite, No poor fluid intake, No rectal bleeding, No vomiting, No other, No nausea/vomiting/ diarrhea, No stool coloration changes Genitourinary: No no symptoms reported, No As described under HPI, No burning, No dysuria, No discharge, No frequency, No flank pain, No hematuria, No incontinence, No pain, No urgency, No other, No urine frequency changes, No urine coloration changes Musculoskeletal: No no symptoms reported, No As describe under HPI, No back pain, No gout, No joint pain, No joint swelling, No muscle pain, No muscle stiffness, No neck pain, No other Skin: No no symptoms reported, No As described under HPI, No change in color, No change in hair/nails, No dryness, No lesions, No lumps, No rash, No other, No skin related problems, No ulcerations, No rash on exposed areas, No ulcerations on exposed areas Psychiatric/Neurological: No no symptoms reported, No As described under HPI, No anxiety, No depression, No emotional problems, No headache, No numbness, No pre-existing deficit, No seizure, No tingling, No tremors, No weakness, No other , No focal weakness, No syncope Hematologic: No no symptoms reported, No As described under HPI, No anemia, No blood clots, No easy bleeding, No easy bruising, No swollen glands, No other, No bleeding abnormalities All Other Systems Reviewed Negative Unless Noted: Yes [id number] Hx Patient Social History Alcohol Use: Denies Use Recreational Drug Use: No Drug of Choice: PAST HX Smoking Status: Former Smoker Type Used: Cigarettes Recent Foreign Travel: No Recent Infectious Disease Expo: No Immunizations Up To Date Tetanus Booster (TDap): Unknown Date of Pneumonia Vaccine: Apr 28, 2009 Date of Influenza Vaccine: Jul 19, 2017 Past Medical History PMH As described under Assessment. Family Medical History Family Medical History: Does not report fam h/o early CAD or SCD Allergies and Home Medications Allergies Coded Allergies: gabapentin (Verified Adverse Reaction, Mild, UPSET STOMACH, 07/17/17) Home Medications Acetaminophen 500 Mg Tablet, 500-1,000 MG PO Q6H PRN for PAIN-MILD, (Reported) Albuterol Sulfate 1 Puff Puff, 2 PUFF IH Q4H PRN for SHORTNESS OF BREATH, ( Reported) 1 PUFF = 90 MCG Apixaban 5 Mg Tablet, 5 MG PO BID, (Reported) Digoxin 250 Mcg Tablet, 250 MCG PO DAILY, (Reported) Diltiazem HCl 180 Mg Cap.er.24h, 360 MG PO DAILY, (Reported) Fluticasone/Vilanterol 1 Each Blst.w.dev, 1 PUFF IH DAILY, (Reported) Guaifenesin 100 Mg/5 Ml Liquid, 10 ML PO Q4H PRN for COUGH, (Reported) Prednisone 10 Mg Tab.ds.pk, 10 MG PO DAILY, (Reported) Patient Home Medication List Home Medication List Reviewed: Yes Physical Exam-Cardiology Physical Exam Vital Signs/I&O 08/06/17 11:44 Temp 98.0 Pulse 133 Resp 20 B/P (MAP) 110/80 (90) Pulse Ox 93 O2 Delivery Nasal Cannula O2 Flow Rate 3.00 Capillary Refill : Less Than 3 Seconds Constitutional: appears stated age, AAO x 3; No apparent distress, No PERRL; well-developed, well-nourished; No other HEENT: No PERRL, No normal ENT inspection, No TMs normal, No pharynx normal, No scleral icterus (R), No scleral icterus (L), No pale conjunctivae (R), No pale conjunctivae (L), No photophobia, No TM abnormal (R), No TM abnormal (L), No pharyngeal erythema, No tonsillar exudate, No other, No discharge, No EOMI, No hearing is well preserved, No hard of hearing, No oral hygience is good, No ulceration, No xanthelasmas are seen Neck: No non-tender, No full range of motion, No supple, No normal inspection, No carotid bruit, No limited range of motion, No lymphadenopathy (R), No lymphadenopathy (L), No tender lateral, No tender midline, No thyromegaly, No other, No carotid pulses are 2 + bilaterally, No with good upstrokes Respiratory: chest is bilaterally symmetric, lungs clear to auscultation Cardiovascular: No regular rate-rhythm; irregularly irregular; No extra beats, No parasternal heave is noted, No JVD, No edema, No bradycardia; tachycardia; No point of maximal impulse, No cardiac thrills are palpable, No S1 and S2, No gallop/S3, No gallop/S4, No diastolic murmur, No systolic murmur, No friction rub, No click, No other Gastrointestinal: No tender, No soft, No round, No distended, No pulsatile mass , No organomegaly, No guarding, No rebound, No tenderness, No hernia, No mass, No audible bowel sounds, No abnormal bowel sounds, No abdominal bruits, No spleenomegaly, No other Rectal: deferred Extremities: No normal range of motion, No non-tender, No normal inspection, No pedal edema, No calf tenderness, No normal capillary refill, No pelvis stable , No calf tenderness, No inflammation, No pedal edema, No slow capillary refill , No swelling, No other, No abrasion, No clubbing, No cyanosis, No ecchymosis, No laceration, No no lower extremity edema bilateral, No significant edema, No tenderness, No wound Neurologic/Psychiatric: 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 tested, No no motor/sensory deficits; alert, normal mood/affect, oriented x 3; No abnormal cerebellar tests , No abnormal solar installation crew supervisor II-XII, No abnormal gait, No aphasia, No EOM palsy, No facial droop, No motor weakness, No sensory deficit, No depressed affect, No disoriented x 3, No other, No grossly intact; power is 5/5 both on sides Skin: No normal color, No warm/dry, No cyanosis, No cool, No diaphoresis, No damp, No ecchymosis, No jaundice, No mottled, No pallor, No rash, No tattoos/ piercings, No ulcerations, No rash on exposed areas, No ulcerations on exposed areas, No other Data Review Labs Laboratory Tests 08/06/17 12:15: White Blood Count 10.0, Red Blood Count 6.01H, Hemoglobin 17.1, Hematocrit 52, Mean Corpuscular Volume 87, Mean Corpuscular Hemoglobin 29, Mean Corpuscular Hemoglobin Concent 33, Red Cell Distribution Width 15.1H, Platelet Count 162, Mean Platelet Volume 11.0H, Neutrophils (%) (Auto) 55, Lymphocytes (%) (Auto) 33 , Monocytes (%) (Auto) 9, Eosinophils (%) (Auto) 4, Basophils (%) (Auto) 0, Neutrophils # (Auto) 5.5, Lymphocytes # (Auto) 3.2, Monocytes # (Auto) 0.9, Eosinophils # (Auto) 0.4H, Basophils # (Auto) 0.0, Prothrombin Time 12.3, INR Comment 0.9, Activated Partial Thromboplast Time 33, Sodium Level 139, Potassium Level 4.5, Chloride Level 100, Carbon Dioxide Level 25, Anion Gap 14, Blood Urea Nitrogen 14, Creatinine 1.02, Estimat Glomerular Filtration Rate > 60 , BUN/Creatinine Ratio 14, Glucose Level 312H, Calcium Level 8.8, Magnesium Level 2.1, Total Bilirubin 0.4, Aspartate Amino Transf (AST/SGOT) 12, Alanine Aminotransferase (ALT/SGPT) 24, Alkaline Phosphatase 103, Myoglobin 87.8, Troponin I < 0.30, B-Type Natriuretic Peptide 40.7, Total Protein 6.8, Albumin 3.9, Digoxin Level 0.65L ECG Impression ECG Initial ECG Impression: Atrial Fibrillation w/RVR A/P-Cardiology Assessment/Admission Diagnosis Atrial fibrillation with rapid ventricular rate, Severe COPD, oxygen dependent. Hypertension, Obesity Plan This is a 56-year-old gentleman who I first saw as an in-hospital consultation on 07/17/2017. He is a patient of [facility] and Dr. Longo. He was directly admitted from Dr. Longo's office for significant shortness of breath. The patient has history of active smoking and COPD. He was admitted for COPD exacerbation. He was not in congestive heart failure however was found to be in atrial flutter with 2-1 AV block. He was treated with amiodarone infusion and IV verapamil every 3 hours. He spontaneously converted to sinus rhythm. He was also started on Eliquis. For his COPD exacerbation he was treated with IV antibiotics and steroids. he also had basilar pneumonia. Echocardiogram done on 07/17/2017 showed normal LV size and function. There is mild concentric hypertrophy. EF 55-65 percent. Normal RV size and function. No significant valvular heart disease. Patient improved significantly and was discharged subsequently. However he presented again on 07/26/2017 with swelling of the feet. Few days ago we performed transesophageal echocardiogram which did not show any left atrial or left atrial appendage thrombus. However the patient converted to sinus rhythm during BRAEDEN therefore no cardioversion was performed. The patient was discharged on digoxin, Cardizem, Eliquis. He presents with atrial fibrillation with rapid ventricular rate. 1. Severe COPD: Patient has oxygen dependent respiratory failure due to severe COPD. Likely cause of his shortness of breath. 2. Atrial fibrillation with rapid ventricular rate: On digoxin, diltiazem and Eliquis. Continue verapamil 5 mg every 3 hours. Nothing by mouth after midnight. We will perform cardioversion tomorrow if he does not convert. Discussed at length with the patient. Other options include antiarrhythmic therapies for atrial fibrillation. Briefly discussed atrial fibrillation ablation, however due to significant oxygen dependent respiratory failure in this patient atrial fibrillation ablation will have modest success. AV node ablation and permanent pacemaker is also an option. I will consider antiarrhythmic therapy. 3. Hypertension: Continue diltiazem. Salt restriction is recommended. Thank you for your consultation. Please call me if you have any questions. Chino Rankin MD, FACP, FACC, FSCAI, FHRS, CCDS Interventional Cardiology Cardiac Electrophysiology Vascular Medicine and Endovascular Interventions Clinical Quality Measures AMI/AHF: ASA po Prior to arrival: No (patient is on eliquis) Marisol RANKIN MD Aug 06, 2017 3:05 pm
[2017-08-06] MEDS ORDERED: FLUT1AER IH (15:08)
[2017-08-06] MEDS ORDERED: RT-ALBUTEROL/IPRATROPIUM 3 ML (DUONEB) VIAL INH PRN (16:00)
[2017-08-06] MEDS: NS IV 1000 ML 1,000 ML IV SCH (17:38)
[2017-08-06] MEDS: RT-ALBUTEROL/IPRATROPIUM 3 ML (DUONEB) VIAL INH SCH (18:25)
[2017-08-06] MEDS: APIXABAN 5 MG (ELIQUIS) TABLET PO SCH (20:46)
[2017-08-06] MEDS: VERAPAMIL 5 MG/2 ML (CALAN) VIAL IV PRN (20:54)
[2017-08-06] MEDS ORDERED: HYDROcodone/APAP 10 MG/325 MG (LORTAB) TAB PO ONE ×2 (21:27→22:00)
[2017-08-07] VITALS (25 sets, daily range): BP systolic 101–140; BP diastolic 63–109
[2017-08-07] MEDS: VERAPAMIL 5 MG/2 ML (CALAN) VIAL IV PRN ×7 (00:16→21:44)
[2017-08-07 04:41] LABS: BASOPHILS % (AUTO) 0 % (0-10); EOSINOPHILS # (AUTO) 0.3 10^3/uL (0.0-0.3); EOSINOPHILS % (AUTO) 3 % (0-10); HEMATOCRIT 53 % (40-54); HEMOGLOBIN 17.4 G/DL (13.3-17.7); LYMPHOCYTES # (AUTO) 3.6 X 10^3 (1.0-4.0); LYMPHOCYTES % (AUTO) 34 % (12-44); MEAN CORPUSCULAR HEMOGLOBIN 28 PG (25-34); MEAN CORPUSCULAR HGB CONC 33 G/DL (32-36); MEAN CORPUSCULAR VOLUME 87 FL (80-99); MEAN PLATELET VOLUME 10.7 FL (7.4-10.4); MONOCYTES # (AUTO) 1.3 X 10^3 (0.0-1.0); MONOCYTES % (AUTO) 12 % (0-12); NEUTROPHILS # (AUTO) 5.2 X 10^3 (1.8-7.8); NEUTROPHILS % (AUTO) 50 % (42-75); PLATELET COUNT 152 10^3/uL (130-400); RED BLOOD COUNT 6.12 10^6/uL (4.35-5.85); RED CELL DISTRIBUTION WIDTH 15.3 % (10.0-14.5); WHITE BLOOD COUNT 10.4 10^3/uL (4.3-11.0)
[2017-08-07 05:08] LABS: BILIRUBIN,TOTAL 0.5 MG/DL (0.1-1.0); CALCIUM 8.8 MG/DL (8.5-10.1); CHLORIDE 102 MMOL/L (98-107); CHOLESTEROL 166 MG/DL (< 200); MAGNESIUM 2.1 MG/DL (1.8-2.4); POTASSIUM 4.5 MMOL/L (3.6-5.0); SODIUM 140 MMOL/L (135-145); TRIGLYCERIDES 177 MG/DL (<150); VLDL CHOLESTEROL 35 MG/DL (5-40)
[2017-08-07] MEDS: NS IV 1000 ML 1,000 ML IV SCH ×3 (05:08→19:56)
[2017-08-07] MEDS: MAGNESIUM 1 GM/100 ML IVPB 100 ML IV SCH (05:18)
[2017-08-07] MEDS: POTASSIUM CL 10MEQ/50ML IVPB 50 ML IV SCH (05:18)
[2017-08-07] MEDS: KCL 20 MEQ TAB (K-DUR) PO SCH (05:18)
[2017-08-07 05:23] LABS: ALANINE AMINOTRANSFERASE 26 U/L (0-55); ALBUMIN 4.1 GM/DL (3.2-4.5); ALKALINE PHOSPHATASE 88 U/L (40-136); BUN/CREATININE RATIO 13; CARBON DIOXIDE 25 MMOL/L (21-32); CREATININE SERUM 0.85 MG/DL (0.60-1.30); GFR ESTIMATED > 60; GLUCOSE 137 MG/DL (70-105); HDL CHOLESTEROL 61 MG/DL (40-60); TOTAL PROTEIN 6.6 GM/DL (6.4-8.2)
[2017-08-07] MEDS: RT-ALBUTEROL/IPRATROPIUM 3 ML (DUONEB) VIAL INH SCH ×4 (06:54→19:14)
--- NOTE | 2017-08-07 09:05 | Diagnostic Imaging Report ---
Indication: Atrial fibrillation. Comparison: 08/06/2017. Findings: There is increased opacity in the left base partially obscuring the left hemidiaphragm. The left diaphragm is elevated but similar to the prior. The upper lobes clear. The right lung clear. There is no effusion or pneumothorax. The heart size and vascularity are within normal limits. Impression: Left basilar parenchymal opacities increased from prior, this could be pneumonia in the appropriate clinical scenario or partial atelectasis. There is no failure pattern and no pleural pathology demonstrated. Dictated by: Dictated on workstation # [id number]
[2017-08-07] MEDS: APIXABAN 5 MG (ELIQUIS) TABLET PO SCH ×2 (09:19→20:00)
--- NOTE | 2017-08-07 09:45 | Cardiology Progress Note ---
Cardiology SOAP Progress Note Subjective: patient converted to sinus rhythm this morning. Objective: I&O/Vital Signs 08/07/17 08/07/17 08/07/17 08/07/17 00:00 00:00 00:00 01:00 Temp 97.2 Pulse 137 133 Resp 14 22 B/P (MAP) 113/93 (100) 124/63 (83) Pulse Ox 93 93 94 O2 Delivery Nasal Cannula Nasal Cannula Nasal Cannula O2 Flow Rate 3.00 3.00 3.00 08/07/17 08/07/17 08/07/17 08/07/17 01:00 02:00 03:00 04:00 Pulse 104 97 137 146 Resp 27 14 13 B/P (MAP) 121/70 (87) 111/84 (93) 134/94 (107) Pulse Ox 94 94 92 O2 Delivery Nasal Cannula Nasal Cannula Nasal Cannula O2 Flow Rate 3.00 3.00 3.00 08/07/17 08/07/17 08/07/17 08/07/17 04:00 04:00 05:00 06:00 Temp 96.9 Pulse 138 142 Resp 19 16 B/P (MAP) 109/76 (87) 101/68 (79) Pulse Ox 93 95 96 O2 Delivery Nasal Cannula Nasal Cannula Nasal Cannula O2 Flow Rate 3.00 3.00 3.00 08/07/17 08/07/17 08/07/17 08/07/17 06:55 07:00 07:36 07:37 Temp 98.2 Pulse 147 149 Resp 20 B/P (MAP) 124/95 (105) Pulse Ox 95 92 92 O2 Delivery Nasal Cannula Nasal Cannula Nasal Cannula O2 Flow Rate 3.00 3.00 3.00 08/07/17 08/07/17 08/07/17 08/07/17 08:00 09:00 10:00 10:41 Pulse 86 110 71 Resp 18 9 16 B/P (MAP) 126/78 (94) 124/67 (86) 107/96 (100) Pulse Ox 94 95 94 O2 Delivery Nasal Cannula Nasal Cannula Nasal Cannula Nasal Cannula O2 Flow Rate 3.00 3.00 3.00 3.00 08/07/17 00:00 Intake Total 800 ml Output Total 1200 ml Balance -400 ml Weight (Pounds): 270 Weight (Ounces): 0.0 Weight (Calculated Kilograms): 122.920319 Constitutional: appears stated age, AAO x 3; No apparent distress, No PERRL; well-developed, well-nourished; No other Respiratory: chest is bilaterally symmetric, lungs clear to auscultation Cardiovascular: regular rate-rhythm; No irregularly irregular, No extra beats, No parasternal heave is noted, No JVD, No edema, No bradycardia; tachycardia; No point of maximal impulse, No cardiac thrills are palpable, No S1 and S2, No gallop/S3, No gallop/S4, No diastolic murmur, No systolic murmur, No friction rub, No click, No other Gastrointestional: No tender, No soft, No round, No distended, No pulsatile mass, No organomegaly, No guarding, No rebound, No tenderness, No hernia, No mass, No audible bowel sounds, No abnormal bowel sounds, No abdominal bruits, No spleenomegaly, No other Extremities: No normal range of motion, No non-tender, No normal inspection, No pedal edema, No calf tenderness, No normal capillary refill, No pelvis stable , No calf tenderness, No inflammation, No pedal edema, No slow capillary refill , No swelling, No other, No abrasion, No clubbing, No cyanosis, No ecchymosis, No laceration, No no lower extremity edema bilateral, No significant edema, No tenderness, No wound Neurologic/Psychiatric: No paper 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 tested, No no motor/sensory deficits; alert, normal mood/affect, oriented x 3; No abnormal cerebellar tests , No abnormal paper supervisor II-XII, No abnormal gait, No aphasia, No EOM palsy, No facial droop, No motor weakness, No sensory deficit, No depressed affect, No disoriented x 3, No other, No grossly intact; power is 5/5 both on sides Skin: No normal color, No warm/dry, No cyanosis, No cool, No diaphoresis, No damp, No ecchymosis, No jaundice, No mottled, No pallor, No rash, No tattoos/ piercings, No ulcerations, No rash on exposed areas, No ulcerations on exposed areas, No other Results/Procedures: Labs Laboratory Tests 08/06/17 12:15: White Blood Count 10.0, Red Blood Count 6.01H, Hemoglobin 17.1, Hematocrit 52, Mean Corpuscular Volume 87, Mean Corpuscular Hemoglobin 29, Mean Corpuscular Hemoglobin Concent 33, Red Cell Distribution Width 15.1H, Platelet Count 162, Mean Platelet Volume 11.0H, Neutrophils (%) (Auto) 55, Lymphocytes (%) (Auto) 33 , Monocytes (%) (Auto) 9, Eosinophils (%) (Auto) 4, Basophils (%) (Auto) 0, Neutrophils # (Auto) 5.5, Lymphocytes # (Auto) 3.2, Monocytes # (Auto) 0.9, Eosinophils # (Auto) 0.4H, Basophils # (Auto) 0.0, Prothrombin Time 12.3, INR Comment 0.9, Activated Partial Thromboplast Time 33, Sodium Level 139, Potassium Level 4.5, Chloride Level 100, Carbon Dioxide Level 25, Anion Gap 14, Blood Urea Nitrogen 14, Creatinine 1.02, Estimat Glomerular Filtration Rate > 60 , BUN/Creatinine Ratio 14, Glucose Level 312H, Calcium Level 8.8, Magnesium Level 2.1, Total Bilirubin 0.4, Aspartate Amino Transf (AST/SGOT) 12, Alanine Aminotransferase (ALT/SGPT) 24, Alkaline Phosphatase 103, Myoglobin 87.8, Troponin I < 0.30, B-Type Natriuretic Peptide 40.7, Total Protein 6.8, Albumin 3.9, Digoxin Level 0.65L 08/07/17 04:00: White Blood Count 10.4, Red Blood Count 6.12H, Hemoglobin 17.4, Hematocrit 53, Mean Corpuscular Volume 87, Mean Corpuscular Hemoglobin 28, Mean Corpuscular Hemoglobin Concent 33, Red Cell Distribution Width 15.3H, Platelet Count 152, Mean Platelet Volume 10.7H, Neutrophils (%) (Auto) 50, Lymphocytes (%) (Auto) 34 , Monocytes (%) (Auto) 12, Eosinophils (%) (Auto) 3, Basophils (%) (Auto) 0, Neutrophils # (Auto) 5.2, Lymphocytes # (Auto) 3.6, Monocytes # (Auto) 1.3H, Eosinophils # (Auto) 0.3, Basophils # (Auto) 0.0, Sodium Level 140, Potassium Level 4.5, Chloride Level 102, Carbon Dioxide Level 25, Anion Gap 13, Blood Urea Nitrogen 11, Creatinine 0.85, Estimat Glomerular Filtration Rate > 60, BUN/ Creatinine Ratio 13, Glucose Level 137H, Calcium Level 8.8, Magnesium Level 2.1 , Total Bilirubin 0.5, Aspartate Amino Transf (AST/SGOT) 15, Alanine Aminotransferase (ALT/SGPT) 26, Alkaline Phosphatase 88, Total Protein 6.6, Albumin 4.1, Phosphorus Level 3.0, Triglycerides Level 177H, Cholesterol Level 166, LDL Cholesterol Direct 90, VLDL Cholesterol 35, HDL Cholesterol 61H A/P: Assessment/Dx: Atrial fibrillation with rapid ventricular rate, Severe COPD, oxygen dependent. Hypertension, Obesity Plan: This is a 56-year-old gentleman who I first saw as an in-hospital consultation on 07/17/2017. He is a patient of [facility] and Dr. Longo. He was directly admitted from Dr. Longo's office for significant shortness of breath. The patient has history of active smoking and COPD. He was admitted for COPD exacerbation. He was not in congestive heart failure however was found to be in atrial flutter with 2-1 AV block. He was treated with amiodarone infusion and IV verapamil every 3 hours. He spontaneously converted to sinus rhythm. He was also started on Eliquis. For his COPD exacerbation he was treated with IV antibiotics and steroids. he also had basilar pneumonia. Echocardiogram done on 07/17/2017 showed normal LV size and function. There is mild concentric hypertrophy. EF 55-65 percent. Normal RV size and function. No significant valvular heart disease. Patient improved significantly and was discharged subsequently. However he presented again on 07/26/2017 with swelling of the feet. Few days ago we performed transesophageal echocardiogram which did not show any left atrial or left atrial appendage thrombus. However the patient converted to sinus rhythm during BRAEDEN therefore no cardioversion was performed. The patient was discharged on digoxin, Cardizem, Eliquis. He presents with atrial fibrillation with rapid ventricular rate. 1. Severe COPD: Patient has oxygen dependent respiratory failure due to severe COPD. Likely cause of his shortness of breath. 2. Atrial fibrillation with rapid ventricular rate: On digoxin, diltiazem and Eliquis. Continue verapamil 5 mg every 3 hours. patient converted to sinus rhythm this morning. Start outpatient dosages of digoxin and diltiazem. Discontinue verapamil. Continue Eliquis. I will also start propafenone 150 mg 3 times a day. Patient can be discharged after 2 dosages of propafenone and follow-up in the office in 7-10 days. 3. Hypertension: Continue diltiazem. Salt restriction is recommended. Thank you for your consultation. Please call me if you have any questions. Chino Rankin MD, FACP, FACC, FSCAI, FHRS, CCDS Interventional Cardiology Cardiac Electrophysiology Vascular Medicine and Endovascular Interventions Clinical Quality Measures AMI/AHF: ASA po Prior to arrival: No (patient is on eliquis) Marisol RANKIN MD Aug 07, 2017 9:45 am
--- OUTSIDE RECORDS SUMMARY | 2017-08-07 10:41 | XMS REPORT | Continuity of Care Document ---
Author Author [facility] Organization [facility] Address Unknown Phone Unavailable Allergies Active Description Code Type Severity Reaction Onset Reported/Identified Relationship to Patient Clinical Status Yes gabapentin Drug Allergy 02/19/2010 Yes gabapentin Drug Allergy N/A N/A 02/19/2010 Yes neurontin neurontin Mild upset stomach 09/30/2011 Yes gabapentin [id number] Drug Allergy Mild UPSET STOMACH 07/17/2017 Medications [...] Ot I48.91 UNSPECIFIED ATRIAL FIBRILLATION 07/21/2017 BARLENNYDGE DOGOT E Ot I48.92 UNSPECIFIED ATRIAL FLUTTER 07/21/2017 [...] Ot E927.0 OVEREXERTION FROM SUDDEN STRENUOUS MOVEM 07/26/2017 TIM VELAZCO MD Ot E66.9 OBESITY, UNSPECIFIED 07/26/2017 TIM VELAZCO MD Ot F17.210 NICOTINE DEPENDENCE, CIGARETTES, UNCOMPL 07/26/2017 TIM VELAZCO MD Ot I11.0 HYPERTENSIVE HEART DISEASE WITH HEART FA 07/26/2017 TIM VELAZCO MD Ot I48.92 UNSPECIFIED ATRIAL FLUTTER 07/26/2017 TIM EVLAZCO MD Ot I50.9 HEART FAILURE, UNSPECIFIED 07/26/2017 TIM VELAZCO MD Ot J43.9 EMPHYSEMA, UNSPECIFIED 07/26/2017 TIM VELAZCO MD Ot R60.0 LOCALIZED EDEMA 07/26/2017 TIM VELAZCO MD Ot Z68.36 BODY MASS INDEX (BMI) 36.0-36.9, ADULT 08/01/2017 Marisol ORTEGA MD Ot E66.9 OBESITY, UNSPECIFIED 08/01/2017 Marisol ORTEGA MD Ot I10 ESSENTIAL (PRIMARY) HYPERTENSION 08/01/2017 Marisol ORTEGA MD Ot I48.0 PAROXYSMAL ATRIAL FIBRILLATION 08/01/2017 Marisol ORTEGA MD, Ot J44.9 CHRONIC OBSTRUCTIVE PULMONARY DISEASE, U 08/01/2017 Marisol ORTEGA MD Ot Z68.35 BODY MASS INDEX (BMI) 35.0-35.9, ADULT 08/01/2017 Marisol ORTEGA MD Ot Z79.01 GROUP HOME (CURRENT) USE OF ANTICOAGULANT 08/01/2017 Marisol ORTEGA MD, Ot Z79.899 OTHER GROUP HOME (CURRENT) DRUG THERAPY 08/01/2017 Marisol ORTEGA MD, Ot Z87.891 PERSONAL HISTORY OF NICOTINE DEPENDENCE 08/01/2017 Marisol ORTEGA MD Ot Z99.81 DEPENDENCE ON SUPPLEMENTAL OXYGEN 08/01/2017 Marisol ORTEGA MD Ot E66.9 OBESITY, UNSPECIFIED 08/01/2017 Marisol ORTEGA MD Ot I10 ESSENTIAL (PRIMARY) HYPERTENSION 08/01/2017 Marisol ORTEGA MD Ot I48.0 PAROXYSMAL ATRIAL FIBRILLATION 08/01/2017 Marisol ORTEGA MD Ot J44.9 CHRONIC OBSTRUCTIVE PULMONARY DISEASE, U 08/01/2017 Marisol ORTEGA MD Ot Z68.35 BODY MASS INDEX (BMI) 35.0-35.9, ADULT 08/01/2017 Marisol ORTEGA MD Ot Z79.01 GROUP HOME (CURRENT) USE OF ANTICOAGULANT 08/01/2017 Marisol ORTEGA MD Ot Z79.899 OTHER GROUP HOME (CURRENT) DRUG THERAPY 08/01/2017 Marisol ORTEGA MD, Ot Z87.891 PERSONAL HISTORY OF NICOTINE DEPENDENCE 08/01/2017 Marisol ORTEGA MD Ot Z99.81 DEPENDENCE ON SUPPLEMENTAL OXYGEN 08/05/2017 Marisol ORTEGA MD Ot E66.9 OBESITY, UNSPECIFIED 08/05/2017 Marisol ORTEGA MD Ot I10 ESSENTIAL (PRIMARY) HYPERTENSION 08/05/2017 Marisol ORTEGA MD Ot I48.0 PAROXYSMAL ATRIAL FIBRILLATION 08/05/2017 Marisol ORTEGA MD Ot J44.9 CHRONIC OBSTRUCTIVE PULMONARY DISEASE, U 08/05/2017 Marisol ORTEGA MD Ot Z68.35 BODY MASS INDEX (BMI) 35.0-35.9, ADULT 08/05/2017 Marisol ORTEGA MD Ot Z79.01 CORPORATE SECURITIES RESEARCH ANALYST (CURRENT) USE OF ANTICOAGULANT 08/05/2017 Marisol ORTEGA MD Ot Z79.899 OTHER CORPORATE SECURITIES RESEARCH ANALYST (CURRENT) DRUG THERAPY 08/05/2017 Marisol ORTEGA MD, Ot Z87.891 PERSONAL HISTORY OF NICOTINE DEPENDENCE 08/05/2017 Marisol ORTEGA MD Ot Z99.81 DEPENDENCE ON SUPPLEMENTAL OXYGEN 08/05/2017 Ot 836.0 TEAR MED MENISC KNEE-CUR 08/05/2017 Ot E000.8 OTHER EXTERNAL CAUSE STATUS 08/05/2017 Ot E849.0 ACCIDENT IN HOME 08/05/2017 Ot E927.0 OVEREXERTION FROM SUDDEN STRENUOUS MOVEM 08/05/2017 Marisol ORTEGA MD Ot E66.9 OBESITY, UNSPECIFIED 08/05/2017 Marisol ORTEGA MD Ot I10 ESSENTIAL (PRIMARY) HYPERTENSION 08/05/2017 Marisol ORTEGA MD Ot I48.0 PAROXYSMAL ATRIAL FIBRILLATION 08/05/2017 Marisol ORTEGA MD, Ot J44.9 CHRONIC OBSTRUCTIVE PULMONARY DISEASE, U 08/05/2017 Marisol ORTEGA MD, Ot Z68.35 BODY MASS INDEX (BMI) 35.0-35.9, ADULT 08/05/2017 Marisol ORTEGA MD Ot Z79.01 CORPORATE SECURITIES RESEARCH ANALYST (CURRENT) USE OF ANTICOAGULANT 08/05/2017 Marisol ORTEGA MD, Ot Z79.899 OTHER GROUP HOME (CURRENT) DRUG THERAPY 08/05/2017 Marisol ORTEGA MD, Ot Z87.891 PERSONAL HISTORY OF NICOTINE DEPENDENCE 08/05/2017 Marisol ORTEGA MD Ot Z99.81 DEPENDENCE ON SUPPLEMENTAL OXYGEN 08/06/2017 Ot 836.0 TEAR MED MENISC KNEE-CUR 08/06/2017 Ot E000.8 OTHER EXTERNAL CAUSE STATUS 08/06/2017 Ot E849.0 ACCIDENT IN HOME 08/06/2017 Ot E927.0 OVEREXERTION FROM SUDDEN STRENUOUS MOVEM 08/06/2017 Marisol ORTEGA MD Ot E66.9 OBESITY, UNSPECIFIED 08/06/2017 Marisol ORTEGA MD Ot I10 ESSENTIAL (PRIMARY) HYPERTENSION 08/06/2017 Marisol ORTEGA MD Ot I48.0 PAROXYSMAL ATRIAL FIBRILLATION 08/06/2017 Marisol ORTEGA MD, Ot J44.9 CHRONIC OBSTRUCTIVE PULMONARY DISEASE, U 08/06/2017 Marisol ORTEGA MD, Ot Z68.35 BODY MASS INDEX (BMI) 35.0-35.9, ADULT 08/06/2017 Marisol ORTEGA MD Ot Z79.01 CORPORATE SECURITIES RESEARCH ANALYST (CURRENT) USE OF ANTICOAGULANT 08/06/2017 Marisol ORTEGA MD Ot Z79.899 OTHER GROUP HOME (CURRENT) DRUG THERAPY 08/06/2017 Marisol ORTEGA MD, Ot Z87.891 PERSONAL HISTORY OF NICOTINE DEPENDENCE 08/06/2017 SHANNON FUNEZ, Marisol MAE Ot Z99.81 DEPENDENCE ON SUPPLEMENTAL OXYGEN 08/06/2017 Ot 836.0 TEAR MED MENISC KNEE-CUR 08/06/2017 Ot E000.8 OTHER EXTERNAL CAUSE STATUS 08/06/2017 Ot E849.0 ACCIDENT IN HOME 08/06/2017 Ot E927.0 OVEREXERTION FROM SUDDEN STRENUOUS MOVEM 08/06/2017 Marisol ORTEGA MD Ot E66.9 OBESITY, UNSPECIFIED 08/06/2017 Marisol ORTEGA MD Ot I10 ESSENTIAL (PRIMARY) HYPERTENSION 08/06/2017 Marisol ORTEGA MD Ot I48.0 PAROXYSMAL ATRIAL FIBRILLATION 08/06/2017 Marisol ORTEGA MD, Ot J44.9 CHRONIC OBSTRUCTIVE PULMONARY DISEASE, U 08/06/2017 Marisol ORTEGA MD Ot Z68.35 BODY MASS INDEX (BMI) 35.0-35.9, ADULT 08/06/2017 Marisol ORTEGA MD Ot Z79.01 CORPORATE SECURITIES RESEARCH ANALYST (CURRENT) USE OF ANTICOAGULANT 08/06/2017 Marisol ORTEGA MD Ot Z79.899 OTHER CORPORATE SECURITIES RESEARCH ANALYST (CURRENT) DRUG THERAPY 08/06/2017 Marisol ORTEGA MD Ot Z87.891 PERSONAL HISTORY OF NICOTINE DEPENDENCE 08/06/2017 Marisol ORTEGA MD Ot Z99.81 DEPENDENCE ON SUPPLEMENTAL OXYGEN 08/06/2017 Ot 836.0 TEAR MED MENISC KNEE-CUR 08/06/2017 Ot E000.8 OTHER EXTERNAL CAUSE STATUS 08/06/2017 Ot E849.0 ACCIDENT IN HOME 08/06/2017 Ot E927.0 OVEREXERTION FROM SUDDEN STRENUOUS MOVEM 08/06/2017 Marisol ORTEGA MD Ot E66.9 OBESITY, UNSPECIFIED 08/06/2017 Marisol ORTEGA MD Ot I10 ESSENTIAL (PRIMARY) HYPERTENSION 08/06/2017 Marisol ORTEGA MD Ot I48.0 PAROXYSMAL ATRIAL FIBRILLATION 08/06/2017 Marisol ORTEGA MD Ot J44.9 CHRONIC OBSTRUCTIVE PULMONARY DISEASE, U 08/06/2017 Marisol ORTEGA MD Ot Z68.35 BODY MASS INDEX (BMI) 35.0-35.9, ADULT 08/06/2017 Marisol ORTEGA MD Ot Z79.01 GROUP HOME (CURRENT) USE OF ANTICOAGULANT 08/06/2017 Marisol ORTEGA MD Ot Z79.899 OTHER CORPORATE SECURITIES RESEARCH ANALYST (CURRENT) DRUG THERAPY 08/06/2017 Marisol ORTEGA MD Ot Z87.891 PERSONAL HISTORY OF NICOTINE DEPENDENCE 08/06/2017 Marisol ORTEGA MD Ot Z99.81 DEPENDENCE ON SUPPLEMENTAL OXYGEN 08/06/2017 Ot 836.0 TEAR MED MENISC KNEE-CUR 08/06/2017 Ot E000.8 OTHER EXTERNAL CAUSE STATUS 08/06/2017 Ot E849.0 ACCIDENT IN HOME 08/06/2017 Ot E927.0 OVEREXERTION FROM SUDDEN STRENUOUS MOVEM 08/06/2017 Marisol ORTEGA MD Ot E66.9 OBESITY, UNSPECIFIED 08/06/2017 Marisol ORTEGA MD Ot I10 ESSENTIAL (PRIMARY) HYPERTENSION 08/06/2017 Marisol ORTEGA MD Ot I48.0 PAROXYSMAL ATRIAL FIBRILLATION 08/06/2017 Marisol ORTEGA MD Ot J44.9 CHRONIC OBSTRUCTIVE PULMONARY DISEASE, U 08/06/2017 Marisol ORTEGA MD Ot Z68.35 BODY MASS INDEX (BMI) 35.0-35.9, ADULT 08/06/2017 Marisol ORTEGA MD Ot Z79.01 CORPORATE SECURITIES RESEARCH ANALYST (CURRENT) USE OF ANTICOAGULANT 08/06/2017 Marisol ORTEGA MD Ot Z79.899 OTHER GROUP HOME (CURRENT) DRUG THERAPY 08/06/2017 Marisol ORTEGA MD Ot Z87.891 PERSONAL HISTORY OF NICOTINE DEPENDENCE 08/06/2017 Marisol ORTEGA MD Ot Z99.81 DEPENDENCE ON SUPPLEMENTAL OXYGEN 08/06/2017 Ot 836.0 TEAR MED MENISC KNEE-CUR 08/06/2017 Ot E000.8 OTHER EXTERNAL CAUSE STATUS 08/06/2017 Ot E849.0 ACCIDENT IN HOME 08/06/2017 Ot E927.0 OVEREXERTION FROM SUDDEN STRENUOUS MOVEM 08/06/2017 Marisol ORTEGA MD Ot E66.9 OBESITY, UNSPECIFIED 08/06/2017 Marisol ORTEGA MD Ot I10 ESSENTIAL (PRIMARY) HYPERTENSION 08/06/2017 Marisol ORTEGA MD Ot I48.0 PAROXYSMAL ATRIAL FIBRILLATION 08/06/2017 Marisol ORTEGA MD Ot J44.9 CHRONIC OBSTRUCTIVE PULMONARY DISEASE, U 08/06/2017 Marisol ORTEGA MD Ot Z68.35 BODY MASS INDEX (BMI) 35.0-35.9, ADULT 08/06/2017 Marisol ORTEGA MD Ot Z79.01 GROUP HOME (CURRENT) USE OF ANTICOAGULANT 08/06/2017 Marisol ORTEGA MD Ot Z79.899 OTHER GROUP HOME (CURRENT) DRUG THERAPY 08/06/2017 Marisol ORTEGA MD Ot Z87.891 PERSONAL HISTORY OF NICOTINE DEPENDENCE 08/06/2017 Marisol ORTEGA MD Ot Z99.81 DEPENDENCE ON SUPPLEMENTAL OXYGEN 08/07/2017 Ot 836.0 TEAR MED MENISC KNEE-CUR 08/07/2017 Ot E000.8 OTHER EXTERNAL CAUSE STATUS 08/07/2017 Ot E849.0 ACCIDENT IN HOME 08/07/2017 Ot E927.0 OVEREXERTION FROM SUDDEN STRENUOUS MOVEM 08/07/2017 Marisol ORTEGA MD Ot E66.9 OBESITY, UNSPECIFIED 08/07/2017 Marisol ORTEGA MD Ot I10 ESSENTIAL (PRIMARY) HYPERTENSION 08/07/2017 Marisol ORTEGA MD Ot I48.0 PAROXYSMAL ATRIAL FIBRILLATION 08/07/2017 Marisol ORTEGA MD Ot J44.9 CHRONIC OBSTRUCTIVE PULMONARY DISEASE, U 08/07/2017 Marisol ORTEGA MD, Ot Z68.35 BODY MASS INDEX (BMI) 35.0-35.9, ADULT 08/07/2017 Marisol ORTEGA MD Ot Z79.01 GROUP HOME (CURRENT) USE OF ANTICOAGULANT 08/07/2017 Marisol ORTEGA MD Ot Z79.899 OTHER CORPORATE SECURITIES RESEARCH ANALYST (CURRENT) DRUG THERAPY 08/07/2017 Marisol ORTEGA MD, Ot Z87.891 PERSONAL HISTORY OF NICOTINE DEPENDENCE 08/07/2017 Marisol ORTEGA MD, Ot Z99.81 DEPENDENCE ON SUPPLEMENTAL OXYGEN Procedures Code Description Performed By Performed On JOINT INJECTION- INTERMEDIATE JOINT 04/16/2012 J1040 DEPO MEDROL 80 MG INJ 04/16/2012 83435 ROUTINE VENIPUNCTURE 07/14/2014 20471 CBC 07/14/2014 [id number] GFR CALC (RESULT ONLY) 07/14/2014 91643 CMP 07/14/2014 10470 LIPID PANEL 07/14/2014 92352 PSA TOTAL 07/14/2014 75841 TSH 07/14/2014 Results Test Result Range Complete [...] - 07/26/17 13:01 Magnesium 2.1 mg/dL 1.8-2.4 Complete blood count (CBC) with automated white blood cell (WBC) differential - 08/06/17 12:15 Blood leukocytes automated count (number/volume) 10.0 10*3/uL 4.3-11.0 Blood erythrocytes automated count (number/volume) 6.01 10*6/uL 4.35-5.85 Venous blood hemoglobin measurement (mass/volume) 17.1 g/dL 13.3-17.7 Blood hematocrit (volume fraction) 52 % 40-54 Automated erythrocyte mean corpuscular volume 87 [foz_us] 80-99 Automated erythrocyte mean corpuscular hemoglobin (mass per erythrocyte) 29 pg 25-34 Automated erythrocyte mean corpuscular hemoglobin concentration measurement ( mass/volume) 33 g/dL 32-36 Automated erythrocyte distribution width ratio 15.1 % 10.0-14.5 Automated blood platelet count (count/volume) 162 10*3/uL 130-400 Automated blood platelet mean volume measurement 11.0 [foz_us] 7.4-10.4 Automated blood neutrophils/100 leukocytes 55 % 42-75 Automated blood lymphocytes/100 leukocytes 33 % 12-44 Blood monocytes/100 leukocytes 9 % 0-12 Automated blood eosinophils/100 leukocytes 4 % 0-10 Automated blood basophils/100 leukocytes 0 % 0-10 Blood neutrophils automated count (number/volume) 5.5 10*3 1.8-7.8 Blood lymphocytes automated count (number/volume) 3.2 10*3 1.0-4.0 Blood monocytes automated count (number/volume) 0.9 10*3 0.0-1.0 Automated eosinophil count 0.4 10*3/uL 0.0-0.3 Automated blood basophil count (count/volume) 0.0 10*3/uL 0.0-0.1 PT panel in platelet poor plasma by coagulation assay - 08/06/17 12:15 Prothrombin time (PT) in platelet poor plasma by coagulation assay 12.3 s 12.2-14.7 INR in platelet poor plasma or blood by coagulation assay 0.9 0.8-1.4 Activated partial thromboplastin time (aPTT) in platelet poor plasma bycoagulation assay - 08/06/17 12:15 Activated partial thromboplastin time (aPTT) in platelet poor plasma bycoagulation assay 33 s 24-35 Comprehensive metabolic panel - 08/06/17 12:15 Serum or plasma sodium measurement (moles/volume) 139 mmol/L 135-145 Serum or plasma potassium measurement (moles/volume) 4.5 mmol/L 3.6-5.0 Serum or plasma chloride measurement (moles/volume) 100 mmol/L 98-107 Carbon dioxide 25 mmol/L 21-32 Serum or plasma anion gap determination (moles/volume) 14 mmol/L 5-14 Serum or plasma urea nitrogen measurement (mass/volume) 14 mg/dL 7-18 Serum or plasma creatinine measurement (mass/volume) 1.02 mg/dL 0.60-1.30 Serum or plasma urea nitrogen/creatinine mass ratio 14 NRG Serum or plasma creatinine measurement with calculation of estimated glomerular filtration rate > NRG Serum or plasma glucose measurement (mass/volume) 312 mg/dL 70-105 Serum or plasma calcium measurement (mass/volume) 8.8 mg/dL 8.5-10.1 Serum or plasma total bilirubin measurement (mass/volume) 0.4 mg/dL 0.1-1.0 Serum or plasma alkaline phosphatase measurement (enzymatic activity/volume) 103 U/L 40-136 Serum or plasma aspartate aminotransferase measurement (enzymatic activity/ volume) 12 U/L 5-34 Serum or plasma alanine aminotransferase measurement (enzymatic activity/volume ) 24 U/L 0-55 Serum or plasma protein measurement (mass/volume) 6.8 g/dL 6.4-8.2 Serum or plasma albumin measurement (mass/volume) 3.9 g/dL 3.2-4.5 Magnesium - 08/06/17 12:15 Magnesium 2.1 mg/dL 1.8-2.4 Serum or plasma lithium measurement (moles/volume) - 08/06/17 12:15 BNP level 40.7 pg/mL <100.0 Serum or plasma troponin i.cardiac measurement (mass/volume) - 08/06/17 12:15 Serum or plasma troponin i.cardiac measurement (mass/volume) < ng/ mL <0.30 Myoglobin, serum - 08/06/17 12:15 Myoglobin, serum 87.8 ng/mL 10.0-92.0 Digoxin - 08/06/17 12:15 Digoxin 0.65 ng/mL 0.80-2.00 Complete blood count (CBC) with automated white blood cell (WBC) differential - 08/07/17 04:00 Blood leukocytes automated count (number/volume) 10.4 10*3/uL 4.3-11.0 Blood erythrocytes automated count (number/volume) 6.12 10*6/uL 4.35-5.85 Venous blood hemoglobin measurement (mass/volume) 17.4 g/dL 13.3-17.7 Blood hematocrit (volume fraction) 53 % 40-54 Automated erythrocyte mean corpuscular volume 87 [foz_us] 80-99 Automated erythrocyte mean corpuscular hemoglobin (mass per erythrocyte) 28 pg 25-34 Automated erythrocyte mean corpuscular hemoglobin concentration measurement ( mass/volume) 33 g/dL 32-36 Automated erythrocyte distribution width ratio 15.3 % 10.0-14.5 Automated blood platelet count (count/volume) 152 10*3/uL 130-400 Automated blood platelet mean volume measurement 10.7 [foz_us] 7.4-10.4 Automated blood neutrophils/100 leukocytes 50 % 42-75 Automated blood lymphocytes/100 leukocytes 34 % 12-44 Blood monocytes/100 leukocytes 12 % 0-12 Automated blood eosinophils/100 leukocytes 3 % 0-10 Automated blood basophils/100 leukocytes 0 % 0-10 Blood neutrophils automated count (number/volume) 5.2 10*3 1.8-7.8 Blood lymphocytes automated count (number/volume) 3.6 10*3 1.0-4.0 Blood monocytes automated count (number/volume) 1.3 10*3 0.0-1.0 Automated eosinophil count 0.3 10*3/uL 0.0-0.3 Automated blood basophil count (count/volume) 0.0 10*3/uL 0.0-0.1 Comprehensive metabolic panel - 08/07/17 04:00 Serum or plasma sodium measurement (moles/volume) 140 mmol/L 135-145 Serum or plasma potassium measurement (moles/volume) 4.5 mmol/L 3.6-5.0 Serum or plasma chloride measurement (moles/volume) 102 mmol/L 98-107 Carbon dioxide 25 mmol/L 21-32 Serum or plasma anion gap determination (moles/volume) 13 mmol/L 5-14 Serum or plasma urea nitrogen measurement (mass/volume) 11 mg/dL 7-18 Serum or plasma creatinine measurement (mass/volume) 0.85 mg/dL 0.60-1.30 Serum or plasma urea nitrogen/creatinine mass ratio 13 NRG Serum or plasma creatinine measurement with calculation of estimated glomerular filtration rate > NRG Serum or plasma glucose measurement (mass/volume) 137 mg/dL 70-105 Serum or plasma calcium measurement (mass/volume) 8.8 mg/dL 8.5-10.1 Serum or plasma total bilirubin measurement (mass/volume) 0.5 mg/dL 0.1-1.0 Serum or plasma alkaline phosphatase measurement (enzymatic activity/volume) 88 U/L 40-136 Serum or plasma aspartate aminotransferase measurement (enzymatic activity/ volume) 15 U/L 5-34 Serum or plasma alanine aminotransferase measurement (enzymatic activity/volume ) 26 U/L 0-55 Serum or plasma protein measurement (mass/volume) 6.6 g/dL 6.4-8.2 Serum or plasma albumin measurement (mass/volume) 4.1 g/dL 3.2-4.5 Serum or plasma phosphate measurement (mass/volume) - 08/07/17 04:00 Serum or plasma phosphate measurement (mass/volume) 3.0 mg/dL 2.3-4.7 Magnesium - 08/07/17 04:00 Magnesium 2.1 mg/dL 1.8-2.4 Lipid 1996 panel - 08/07/17 04:00 Serum or plasma triglyceride measurement (mass/volume) 177 mg/dL <150 Serum or plasma cholesterol measurement (mass/volume) 166 mg/dL < 200 Serum or plasma cholesterol in HDL measurement (mass/volume) 61 mg/ dL 40-60 Cholesterol in LDL [mass/volume] in serum or plasma by direct assay 90 mg/dL 1-129 Serum or plasma cholesterol in VLDL measurement (mass/volume) 35 mg/ dL 5-40 Encounters ACCT No. Visit Date/Time Discharge Status Pt. Type Provider Facility Loc./Unit Complaint [id number] 07/31/2017 07:38:00 07/31/2017 23:59:59 CLS Outpatient Marisol ORTEGA MD [facility] CATH RAPID AFIB [id number] 07/25/2017 13:32:00 07/26/2017 14:38:00 DIS Inpatient TIM VELAZCO MD [facility] ICU A-FLUTTER W/ RVR EDEMA [id number] 07/17/2017 09:25:00 07/21/2017 12:30:00 DIS Inpatient PERLITA SHEPPARD CHANDANA E [facility] 4TH TACHYCARDIA [id number] 05/02/2014 13:22:00 05/02/2014 15:56:00 DIS Emergency ZULEMA CAMERON [facility] ER LEFT KNEE PAIN [id number] 08/11/2017 15:30:00 PEN Preadmit KARRIE CAMPOS BOX PERSON [facility] RT J96.20 CHRONIC RESP FAILURE [id number] 08/06/2017 14:01:00 ACT Inpatient ABDIAS NGUYEN MD [facility] ICU A FIB WITHOUT RVR [id number] 06/23/2014 12:05:00 Document Registration [id number] 05/03/2012 00:01:00 Document Registration [id number] 09/30/2011 13:29:00 Document Registration [id number] 03/03/2006 13:29:00 Document Registration [email or web address] 05/02/2014 13:23:02 ACT Document Registration [id number] 07/28/2017 13:20:00 07/28/2017 23:59:59 CLS Outpatient RENA ORR APRN [facility] [id number] 07/14/2014 11:43:00 07/14/2014 23:59:59 CLS Outpatient RENA ORR APRN [id number] 04/16/2012 15:27:00 04/16/2012 23:59:59 CLS Outpatient
[2017-08-07] MEDS: PROPAFENONE 150 MG (RYTHMOL) TABLET PO SCH ×2 (10:45→17:48)
--- OUTSIDE RECORDS SUMMARY | 2017-08-07 11:04 | XMS REPORT | Continuity of Care Document ---
Author Author [facility] Organization [facility] Address Unknown Phone Unavailable Allergies Active Description Code Type Severity Reaction Onset Reported/Identified Relationship to Patient Clinical Status Yes gabapentin Drug Allergy 02/19/2010 Yes gabapentin Drug Allergy N/A N/A 02/19/2010 Yes neurontin neurontin Mild upset stomach 09/30/2011 Yes gabapentin [id number] Drug Allergy Mild UPSET STOMACH 07/17/2017 Medications [...] Ot I48.92 UNSPECIFIED ATRIAL FLUTTER 07/26/2017 TIM VELAZCO MD Ot I50.9 HEART FAILURE, UNSPECIFIED 07/26/2017 [...] ADULT 08/01/2017 Marisol ORTEGA MD Ot Z79.01 ALF (CURRENT) USE OF ANTICOAGULANT 08/01/2017 Marisol ORTEGA MD, Ot Z79.899 OTHER ALF (CURRENT) DRUG THERAPY 08/01/2017 Marisol ORTEGA MD, [...] ADULT 08/01/2017 Marisol ORTEGA MD Ot Z79.01 ALF (CURRENT) USE OF ANTICOAGULANT 08/01/2017 Marisol ORTEGA MD Ot Z79.899 OTHER ALF (CURRENT) DRUG THERAPY 08/01/2017 Marisol ORTEGA MD, [...] ADULT 08/05/2017 Marisol ORTEGA MD Ot Z79.01 MANAGER DATA (CURRENT) USE OF ANTICOAGULANT 08/05/2017 Marisol ORTEGA MD Ot Z79.899 OTHER MANAGER DATA (CURRENT) DRUG THERAPY 08/05/2017 Marisol ORTEGA MD, [...] ADULT 08/05/2017 Marisol ORTEGA MD Ot Z79.01 MANAGER DATA (CURRENT) USE OF ANTICOAGULANT 08/05/2017 Marisol ORTEGA MD, Ot Z79.899 OTHER ALF (CURRENT) DRUG THERAPY 08/05/2017 Marisol ORTEGA MD, [...] ADULT 08/06/2017 Marisol ORTEGA MD Ot Z79.01 MANAGER DATA (CURRENT) USE OF ANTICOAGULANT 08/06/2017 Marisol ORTEGA MD Ot Z79.899 OTHER ALF (CURRENT) DRUG THERAPY 08/06/2017 Marisol ORTEGA MD, [...] ADULT 08/06/2017 Marisol ORTEGA MD Ot Z79.01 MANAGER DATA (CURRENT) USE OF ANTICOAGULANT 08/06/2017 Marisol ORTEGA MD Ot Z79.899 OTHER MANAGER DATA (CURRENT) DRUG THERAPY 08/06/2017 Marisol ORTEGA MD [...] ADULT 08/06/2017 Marisol ORTEGA MD Ot Z79.01 ALF (CURRENT) USE OF ANTICOAGULANT 08/06/2017 Marisol ORTEGA MD Ot Z79.899 OTHER MANAGER DATA (CURRENT) DRUG THERAPY 08/06/2017 Marisol ORTEGA MD [...] ADULT 08/06/2017 Marisol ORTEGA MD Ot Z79.01 MANAGER DATA (CURRENT) USE OF ANTICOAGULANT 08/06/2017 Marisol ORTEGA MD Ot Z79.899 OTHER ALF (CURRENT) DRUG THERAPY 08/06/2017 Marisol ORTEGA MD [...] ADULT 08/06/2017 Marisol ORTEGA MD Ot Z79.01 ALF (CURRENT) USE OF ANTICOAGULANT 08/06/2017 Marisol ORTEGA MD Ot Z79.899 OTHER ALF (CURRENT) DRUG THERAPY 08/06/2017 Marisol ORTEAG MD Ot Z87.891 PERSONAL HISTORY OF NICOTINE [...] ADULT 08/07/2017 Marisol ORTEGA MD Ot Z79.01 ALF (CURRENT) USE OF ANTICOAGULANT 08/07/2017 Marisol ORTEGA MD Ot Z79.899 OTHER MANAGER DATA (CURRENT) DRUG THERAPY 08/07/2017 Marisol ORTEGA MD, Ot Z87.891 PERSONAL HISTORY OF NICOTINE DEPENDENCE 08/07/2017 Marisol ORTEGA MD, Ot Z99.81 DEPENDENCE ON SUPPLEMENTAL OXYGEN Procedures Code Description Performed By Performed On JOINT INJECTION- INTERMEDIATE JOINT 04/16/2012 J1040 DEPO MEDROL 80 MG INJ 04/16/2012 51940 ROUTINE VENIPUNCTURE 07/14/2014 27010 CBC 07/14/2014 [id number] GFR CALC (RESULT ONLY) 07/14/2014 94985 CMP 07/14/2014 61950 LIPID PANEL 07/14/2014 84744 PSA TOTAL 07/14/2014 07550 TSH 07/14/2014 Results Test Result Range Complete [...] Status Pt. Type Provider Facility Loc./Unit Complaint [id number] 07/31/2017 07:38:00 07/31/2017 23:59:59 CLS Outpatient Marisol ROTEGA MD [facility] CATH RAPID AFIB [id number] 07/25/2017 13:32:00 07/26/2017 14:38:00 DIS Inpatient TIM VELAZCO MD [facility] ICU A-FLUTTER W/ RVR EDEMA [id number] 07/17/2017 09:25:00 07/21/2017 12:30:00 DIS Inpatient PERLITA SHEPPARD CHANDANA E [facility] 4TH TACHYCARDIA [id number] 05/02/2014 13:22:00 05/02/2014 15:56:00 DIS Emergency ZULEMA CAMERON [facility] ER LEFT KNEE PAIN [id number] 08/11/2017 15:30:00 PEN Preadmit KARRIE CAMPOS FACILITY MANAGER HISTOLOGY [facility] RT J96.20 CHRONIC RESP FAILURE [id number] 08/06/2017 14:01:00 ACT Inpatient ABDIAS NGUYEN MD [facility] ICU A FIB WITHOUT RVR [id number] 06/23/2014 12:05:00 Document Registration [id number] 05/03/2012 00:01:00 Document Registration [id number] 09/30/2011 13:29:00 Document Registration [id number] 03/03/2006 13:29:00 Document Registration [email or web address] 05/02/2014 13:23:02 ACT Document Registration [id number] 07/28/2017 13:20:00 07/28/2017 23:59:59 CLS Outpatient RENA ORR APRN [facility] [id number] 07/14/2014 11:43:00 07/14/2014 23:59:59 CLS Outpatient RENA ORR APRN [id number] 04/16/2012 15:27:00 04/16/2012 23:59:59 CLS Outpatient
[2017-08-07] MEDS: HYDROcodone/APAP 10 MG/325 MG (LORTAB) TAB PO PRN ×3 (12:40→23:40)
--- NOTE | 2017-08-07 22:21 | History & Physicial (CHS) ---
HPI History of Present Illness: 56 yo M with recent admission for COPD exacerbation and was found to be in atrial flutter. Patient at that time spontaneously converted with rate control medications. He was then found to be in atrial fibrillation and then was set up for BRAEDEN. During procedure he converted. Today he presented to ER with palpitations and chest discomfort. He was found to be in atrial fibrillation with RVR 130-140s. This AM patient denies any palpitations or chest pain and is currently in SR. He has been in A fib this AM and has spontaneously went back and forth. Cardiology managing arrhythmia. Patient has h/o COPD and continues to use tobacco. He follows with Dr Longo as outpatient for COPD. Source: patient, RN/, old records Exam Limitations: no limitations Date seen by provider: Aug 07, 2017 Time Seen by Provider: 10:15 Attending Physician Pam Recio MD PCP Center/[facility] [place] Consult Date of Admission Aug 06, 2017 at 14:01 Home Medications Home Medications Reviewed patient Home Medication Reconciliation performed by pharmacy medication reconciliations install technician and/or nursing. Patients Allergies have been reviewed. Allergies Coded Allergies: gabapentin (Verified Adverse Reaction, Mild, UPSET STOMACH, 07/17/17) [id number] Hx Patient Social History Marrital Status: Living Status: Lives with in home Alcohol Use: Denies Use Recreational Drug Use: No Drug of Choice: PAST HX Smoking Status: Former Smoker Type Used: Cigarettes Recent Foreign Travel: No Contact w/other who traveled: No Recent Hopitalizations: Yes (CHF,COPD, A-FIB) Recent Infectious Disease Expo: No Physical Abuse Screen: No Sexual Abuse: No Immunizations Up To Date Tetanus Booster (TDap): Unknown Date of Pneumonia Vaccine: Apr 28, 2009 Date of Influenza Vaccine: Jul 19, 2017 Past Medical History Remote history of IV drug abuse COPD Tobacco abuse h/o Atrial flutter that converted to SR spontaneously Paroxysmal Atrial fibillation with normal BRAEDEN HLD Family Medical History Significant Family History: Heart Disease, Cancer, CAD Under 55 Years Old Review of Systems (CHC) Constitutional: No chills; dizziness; No fever; malaise EENTM: no symptoms reported Respiratory: No cough; dyspnea on exertion (with palpitations) Cardiovascular: chest pain; No edema; palpitations; No syncope Gastrointestinal: no symptoms reported; No abdominal pain, No constipation, No diarrhea, No loss of appetite, No nausea, No vomiting Genitourinary: no symptoms reported; No dysuria, No frequency, No hematuria Musculoskeletal: No back pain, No joint pain; muscle pain Skin: no symptoms reported; No lesions, No rash Psychiatric/Neurological: Headache; Denies Weakness Reviewed Test Results Reviewed Test Results Lab Laboratory Tests Test 08/07/17 04:00 Range/Units White Blood Count 10.4 4.3-11.0 10^3/uL Red Blood Count 6.12 H 4.35-5.85 10^6/uL Hemoglobin 17.4 13.3-17.7 G/DL Hematocrit 53 40-54 % Mean Corpuscular Volume 87 80-99 FL Mean Corpuscular Hemoglobin 28 25-34 PG Mean Corpuscular Hemoglobin Concent 33 32-36 G/DL Red Cell Distribution Width 15.3 H 10.0-14.5 % Platelet Count 152 130-400 10^3/uL Mean Platelet Volume 10.7 H 7.4-10.4 FL Neutrophils (%) (Auto) 50 42-75 % Lymphocytes (%) (Auto) 34 12-44 % Monocytes (%) (Auto) 12 0-12 % Eosinophils (%) (Auto) 3 0-10 % Basophils (%) (Auto) 0 0-10 % Neutrophils # (Auto) 5.2 1.8-7.8 X 10^3 Lymphocytes # (Auto) 3.6 1.0-4.0 X 10^3 Monocytes # (Auto) 1.3 H 0.0-1.0 X 10^3 Eosinophils # (Auto) 0.3 0.0-0.3 10^3/uL Basophils # (Auto) 0.0 0.0-0.1 10^3/uL Sodium Level 140 135-145 MMOL/L Potassium Level 4.5 3.6-5.0 MMOL/L Chloride Level 102 98-107 MMOL/L Carbon Dioxide Level 25 21-32 MMOL/L Anion Gap 13 5-14 MMOL/L Blood Urea Nitrogen 11 7-18 MG/DL Creatinine 0.85 0.60-1.30 MG/DL Estimat Glomerular Filtration Rate > 60 BUN/Creatinine Ratio 13 Glucose Level 137 H 70-105 MG/DL Calcium Level 8.8 8.5-10.1 MG/DL Phosphorus Level 3.0 2.3-4.7 MG/DL Magnesium Level 2.1 1.8-2.4 MG/DL Total Bilirubin 0.5 0.1-1.0 MG/DL Aspartate Amino Transf (AST/SGOT) 15 5-34 U/L Alanine Aminotransferase (ALT/SGPT) 26 0-55 U/L Alkaline Phosphatase 88 40-136 U/L Total Protein 6.6 6.4-8.2 GM/DL Albumin 4.1 3.2-4.5 GM/DL Triglycerides Level 177 H <150 MG/DL Cholesterol Level 166 < 200 MG/DL LDL Cholesterol Direct 90 1-129 MG/DL VLDL Cholesterol 35 5-40 MG/DL HDL Cholesterol 61 H 40-60 MG/DL Radiology Date of Exam: 08/06/17 CHEST 1 VIEW, AP/PA ONLY INDICATION: Tachycardia. TIME OF EXAM: 12:08 p.m. Correlation is made with prior study of 07/25/2017. FINDINGS: The heart size is stable. Mild chronic elevation of the left hemidiaphragm is stable. There appears to be some minimal infiltrate or atelectasis in the right base. Otherwise, the lungs are clear. The pulmonary vascularity is normal. No effusion or pneumothorax is seen. IMPRESSION: Minimal right basilar infiltrate or atelectasis. The study is otherwise unremarkable. Physical Exam-(CHC) Physical Exam Vital Signs VS - Last 72 Hours, by Label 08/06/17 08/06/17 08/06/17 08/06/17 11:44 14:46 14:55 14:55 Temp 98.0 98.6 Pulse 133 117 105 Resp 20 18 16 B/P (MAP) 110/80 (90) 112/71 117/86 (96) Pulse Ox 93 93 95 O2 Delivery Nasal Cannula Nasal Cannula Nasal Cannula Nasal Cannula O2 Flow Rate 3.00 3.00 3.00 3.00 08/06/17 08/06/17 08/06/17 08/06/17 15:05 15:15 15:30 15:45 Pulse 115 83 144 128 Resp 14 20 20 B/P (MAP) 90/86 (87) 148/43 (78) 130/61 (84) Pulse Ox 94 96 94 O2 Delivery Nasal Cannula Nasal Cannula Nasal Cannula O2 Flow Rate 3.00 3.00 3.00 08/06/17 08/06/17 08/06/17 08/06/17 15:49 16:20 16:40 17:00 Temp 98.6 Pulse 80 104 Resp 20 13 B/P (MAP) 130/61 (84) 119/78 (92) Pulse Ox 93 93 95 94 O2 Delivery Nasal Cannula Nasal Cannula O2 Flow Rate 3.00 3.00 3.00 FiO2 32 08/06/17 08/06/17 08/06/17 08/06/17 18:00 18:25 19:00 19:00 Pulse 134 98 90 Resp 18 21 B/P (MAP) 108/85 (93) 123/82 (96) Pulse Ox 94 93 93 O2 Delivery Nasal Cannula Nasal Cannula Nasal Cannula O2 Flow Rate 3.00 3.00 3.00 08/06/17 08/06/17 08/06/17 08/06/17 19:40 20:00 20:00 21:00 Temp 97.7 Pulse 98 99 Resp 12 13 B/P (MAP) 110/62 (78) 120/75 (90) Pulse Ox 93 93 94 O2 Delivery Nasal Cannula Nasal Cannula Nasal Cannula O2 Flow Rate 3.00 3.00 3.00 08/06/17 08/06/17 08/07/17 08/07/17 22:00 23:00 00:00 00:00 Temp 97.2 Pulse 89 138 137 Resp 10 14 14 B/P (MAP) 116/81 (93) 118/82 (94) 113/93 (100) Pulse Ox 95 93 93 O2 Delivery Nasal Cannula Nasal Cannula Nasal Cannula O2 Flow Rate 3.00 3.00 3.00 08/07/17 08/07/17 08/07/17 08/07/17 00:00 01:00 01:00 02:00 Pulse 133 104 97 Resp 22 27 B/P (MAP) 124/63 (83) 121/70 (87) Pulse Ox 93 94 94 O2 Delivery Nasal Cannula Nasal Cannula Nasal Cannula O2 Flow Rate 3.00 3.00 3.00 08/07/17 08/07/17 08/07/17 08/07/17 03:00 04:00 04:00 04:00 Temp 96.9 Pulse 137 146 Resp 14 13 B/P (MAP) 111/84 (93) 134/94 (107) Pulse Ox 94 92 93 O2 Delivery Nasal Cannula Nasal Cannula Nasal Cannula O2 Flow Rate 3.00 3.00 3.00 08/07/17 08/07/17 08/07/17 08/07/17 05:00 06:00 06:55 07:00 Pulse 138 142 147 Resp 19 16 B/P (MAP) 109/76 (87) 101/68 (79) Pulse Ox 95 96 95 O2 Delivery Nasal Cannula Nasal Cannula Nasal Cannula O2 Flow Rate 3.00 3.00 3.00 08/07/17 08/07/17 08/07/17 08/07/17 07:36 07:37 08:00 09:00 Temp 98.2 Pulse 149 86 110 Resp 20 18 9 B/P (MAP) 124/95 (105) 126/78 (94) 124/67 (86) Pulse Ox 92 92 94 95 O2 Delivery Nasal Cannula Nasal Cannula Nasal Cannula Nasal Cannula O2 Flow Rate 3.00 3.00 3.00 3.00 08/07/17 08/07/17 08/07/17 08/07/17 10:00 10:41 11:00 12:00 Pulse 71 129 141 Resp 16 15 24 B/P (MAP) 107/96 (100) 117/95 (102) 115/100 (105) Pulse Ox 94 93 90 O2 Delivery Nasal Cannula Nasal Cannula Nasal Cannula Nasal Cannula O2 Flow Rate 3.00 3.00 3.00 3.00 08/07/17 08/07/17 08/07/17 08/07/17 12:13 12:30 13:00 13:00 Pulse 142 134 142 Resp 17 14 B/P (MAP) 127/94 (105) 135/109 (118) Pulse Ox 90 O2 Delivery Nasal Cannula Nasal Cannula Nasal Cannula O2 Flow Rate 3.00 3.00 3.00 08/07/17 08/07/17 08/07/17 08/07/17 14:00 14:01 15:00 15:44 Pulse 113 123 Resp 20 20 B/P (MAP) 123/83 (96) 140/89 (106) 105/92 (96) Pulse Ox 93 92 O2 Delivery Nasal Cannula Nasal Cannula Nasal Cannula O2 Flow Rate 3.00 3.00 3.00 08/07/17 08/07/17 08/07/17 08/07/17 16:00 16:14 16:44 17:00 Temp 97.8 Pulse 121 142 Resp 22 24 B/P (MAP) 116/88 (97) 114/88 (97) Pulse Ox 93 89 O2 Delivery Nasal Cannula Nasal Cannula Nasal Cannula O2 Flow Rate 3.00 3.00 3.00 08/07/17 08/07/17 08/07/17 08/07/17 18:23 19:00 19:14 20:00 Temp 97.0 Pulse 123 110 Resp 19 B/P (MAP) Pulse Ox 91 O2 Delivery Nasal Cannula Nasal Cannula Nasal Cannula O2 Flow Rate 3.00 2.50 3.00 08/07/17 20:00 O2 Delivery Nasal Cannula O2 Flow Rate 3.00 Capillary Refill : Less Than 3 Seconds General Appearance: WD/WN, no apparent distress HEENT: PERRL/EOMI Neck: non-tender, full range of motion, supple Respiratory: chest non-tender, lungs clear, normal breath sounds, no respiratory distress, no accessory muscle use Cardiovascular: no edema, no murmur, irregularly irregular Gastrointestinal: normal bowel sounds, non tender, soft, no organomegaly; No rebound, No tenderness Back: no CVA tenderness Extremities: normal range of motion, non-tender, normal inspection, no pedal edema, no calf tenderness, normal capillary refill Neurologic/Psychiatric: conveyor monitor II-XII nml as tested, no motor/sensory deficits, alert, normal mood/affect, oriented x 3 Skin: normal color, warm/dry Lymphatic: no adenopathy Assessment/Plan Assessment/Plan Admission Status: Inpatient Order (span 2 midnights) Reason for Inpatient Admission: patient will likely need cardiac procedure (1) Atrial fibrillation with RVR Status: Acute Assessment & Plan: - Dr Rankin managing, patient may need cardio converted - Rate uncontrolled - Continue PO anticoagulation (2) HTN (hypertension) Status: Chronic Assessment & Plan: - Controlled on home medications Qualifiers: Qualified Codes: I10 - Essential (primary) hypertension (3) HLD (hyperlipidemia) Status: Chronic Qualifiers: Qualified Codes: E78.2 - Mixed hyperlipidemia (4) COPD (chronic obstructive pulmonary disease) with chronic bronchitis Status: Chronic Assessment & Plan: @ baseline No home oxygen MAT protocol started (5) Tobacco abuse Status: Chronic Assessment & Plan: - Discussed the need for cessation (6) BMI 30.0-30.9,adult Status: Chronic Assessment & Plan: - Discussed the need for weight loss to help with COPD (7) DVT prophylaxis Status: Acute Assessment & Plan: - On PO anticoagulation for atrial fibrillation Clinical Quality Measures AMI/AHF: ASA po Prior to arrival: No (patient is on eliquis) DVT/VTE Risk/Contraindication: Risk Factor Score Per Nursin RFS Level Per Nursing on Admit: 4+=Very High Copy Copies To 1: Salena FRANCO HOLLY R MD Aug 07, 2017 22:21
[2017-08-08] VITALS (24 sets, daily range): BP systolic 95–140; BP diastolic 47–114
[2017-08-08] MEDS: PROPAFENONE 150 MG (RYTHMOL) TABLET PO SCH ×3 (01:30→17:47)
[2017-08-08] MEDS: VERAPAMIL 5 MG/2 ML (CALAN) VIAL IV PRN ×5 (01:30→20:51)
[2017-08-08 03:52] LABS: BASOPHILS % (AUTO) 1 % (0-10); EOSINOPHILS # (AUTO) 0.4 10^3/uL (0.0-0.3); EOSINOPHILS % (AUTO) 5 % (0-10); HEMATOCRIT 50 % (40-54); HEMOGLOBIN 16.2 G/DL (13.3-17.7); LYMPHOCYTES # (AUTO) 2.9 X 10^3 (1.0-4.0); LYMPHOCYTES % (AUTO) 34 % (12-44); MEAN CORPUSCULAR HEMOGLOBIN 29 PG (25-34); MEAN CORPUSCULAR HGB CONC 33 G/DL (32-36); MEAN CORPUSCULAR VOLUME 88 FL (80-99); MEAN PLATELET VOLUME 10.8 FL (7.4-10.4); MONOCYTES % (AUTO) 12 % (0-12); NEUTROPHILS # (AUTO) 4.2 X 10^3 (1.8-7.8); NEUTROPHILS % (AUTO) 49 % (42-75); PLATELET COUNT 160 10^3/uL (130-400); RED BLOOD COUNT 5.63 10^6/uL (4.35-5.85); RED CELL DISTRIBUTION WIDTH 15.3 % (10.0-14.5); WHITE BLOOD COUNT 8.7 10^3/uL (4.3-11.0)
[2017-08-08 04:13] LABS: ALANINE AMINOTRANSFERASE 21 U/L (0-55); ALBUMIN 3.7 GM/DL (3.2-4.5); ALKALINE PHOSPHATASE 75 U/L (40-136); BILIRUBIN,TOTAL 0.5 MG/DL (0.1-1.0); BUN/CREATININE RATIO 13; CALCIUM 8.7 MG/DL (8.5-10.1); CARBON DIOXIDE 27 MMOL/L (21-32); CHLORIDE 104 MMOL/L (98-107); CREATININE SERUM 0.85 MG/DL (0.60-1.30); GFR ESTIMATED > 60; GLUCOSE 152 MG/DL (70-105); MAGNESIUM 2.2 MG/DL (1.8-2.4); PHOSPHORUS 3.5 MG/DL (2.3-4.7); POTASSIUM 4.5 MMOL/L (3.6-5.0); SODIUM 141 MMOL/L (135-145); TOTAL PROTEIN 6.1 GM/DL (6.4-8.2)
[2017-08-08] MEDS: POTASSIUM CL 10MEQ/50ML IVPB 50 ML IV SCH (05:11)
[2017-08-08] MEDS: KCL 20 MEQ TAB (K-DUR) PO SCH (05:11)
[2017-08-08] MEDS: MAGNESIUM 1 GM/100 ML IVPB 100 ML IV SCH (05:11)
[2017-08-08] MEDS: RT-ALBUTEROL/IPRATROPIUM 3 ML (DUONEB) VIAL INH SCH ×4 (06:24→19:14)
[2017-08-08] MEDS: HYDROcodone/APAP 10 MG/325 MG (LORTAB) TAB PO PRN ×3 (08:12→20:51)
--- NOTE | 2017-08-08 08:19 | Diagnostic Imaging Report ---
INDICATION: Atrial fibrillation. TIME OF EXAM: 3:15 AM Correlation is made with prior study from one day earlier. FINDINGS: Left basilar infiltrate/atelectasis is unchanged. Right lung is fairly clear. No effusion or pneumothorax is seen. IMPRESSION: Stable chest since exam one day earlier. Dictated by: Dictated on workstation # [id number]
[2017-08-08] MEDS: APIXABAN 5 MG (ELIQUIS) TABLET PO SCH ×2 (09:23→20:51)
[2017-08-08] MEDS: NS IV 1000 ML 1,000 ML IV SCH ×2 (09:23→22:30)
[2017-08-08] MEDS ORDERED: DILTIAZEM 180 MG (CARDIZEM CD) CAP PO ONE (09:45)
--- NOTE | 2017-08-08 09:48 | Progress Note-Cardiology ---
Cardiology SOAP Progress Note Subjective: No cp or palp or syncope Shortness of breath at his usual baseline Objective: I&O/Vital Signs 08/07/17 08/07/17 08/07/17 08/08/17 22:00 23:00 23:38 00:00 Temp 98.3 Pulse 126 111 Resp 13 16 B/P (MAP) 103/79 (87) 114/90 (98) Pulse Ox 96 96 O2 Delivery Nasal Cannula Nasal Cannula Nasal Cannula Nasal Cannula O2 Flow Rate 3.00 3.00 4.00 4.00 08/08/17 08/08/17 08/08/17 08/08/17 00:00 01:00 01:00 02:00 Pulse 94 140 117 109 Resp 13 9 13 B/P (MAP) 122/106 (111) 127/85 (99) 108/81 (90) Pulse Ox 94 96 94 O2 Delivery Nasal Cannula Nasal Cannula Nasal Cannula O2 Flow Rate 4.00 4.00 4.00 08/08/17 08/08/17 08/08/17 08/08/17 03:00 04:00 04:00 04:00 Temp 97.3 Pulse 110 144 Resp 27 17 B/P (MAP) 121/76 (91) 114/100 (105) Pulse Ox 97 94 O2 Delivery Nasal Cannula Nasal Cannula Nasal Cannula O2 Flow Rate 4.00 4.00 4.00 08/08/17 08/08/17 08/08/17 08/08/17 05:00 06:00 06:25 07:00 Pulse 114 63 96 Resp 17 13 B/P (MAP) 105/84 (91) 130/114 (119) Pulse Ox 95 96 96 O2 Delivery Nasal Cannula Nasal Cannula Nasal Cannula O2 Flow Rate 4.00 4.00 3.00 08/08/17 08/08/17 08/08/17 08/08/17 07:00 08:00 08:09 09:00 Temp 97.5 Pulse 121 84 93 Resp 9 13 13 B/P (MAP) 140/79 (99) 120/78 (92) 128/86 (100) Pulse Ox 99 96 96 O2 Delivery Nasal Cannula Nasal Cannula Nasal Cannula Nasal Cannula O2 Flow Rate 4.00 4.00 4.00 4.00 08/08/17 00:00 Intake Total 2347 ml Output Total 350 ml Balance 1997 ml Weight (Pounds): 270 Weight (Ounces): 1.0 Weight (Calculated Kilograms): 122.993877 Constitutional: appears stated age, AAO x 3, well-developed, well-nourished Respiratory: chest is bilaterally symmetric, lungs clear to auscultation Cardiovascular: regular rate-rhythm, tachycardia, systolic murmur (faint AMALIA at card base) Gastrointestional: No tender, No soft, No round, No distended, No pulsatile mass, No organomegaly, No guarding, No rebound, No tenderness, No hernia, No mass, No audible bowel sounds, No abnormal bowel sounds, No abdominal bruits, No spleenomegaly, No other Extremities: normal capillary refill; No clubbing, No cyanosis, No significant edema Neurologic/Psychiatric: alert, normal mood/affect, oriented x 3, power is 5/5 both on sides Skin: warm/dry; No rash on exposed areas, No ulcerations on exposed areas Results/Procedures: Labs Laboratory Tests 08/08/17 03:20: White Blood Count 8.7, Red Blood Count 5.63, Hemoglobin 16.2, Hematocrit 50, Mean Corpuscular Volume 88, Mean Corpuscular Hemoglobin 29, Mean Corpuscular Hemoglobin Concent 33, Red Cell Distribution Width 15.3H, Platelet Count 160, Mean Platelet Volume 10.8H, Neutrophils (%) (Auto) 49, Lymphocytes (%) (Auto) 34 , Monocytes (%) (Auto) 12, Eosinophils (%) (Auto) 5, Basophils (%) (Auto) 1, Neutrophils # (Auto) 4.2, Lymphocytes # (Auto) 2.9, Monocytes # (Auto) 1.0, Eosinophils # (Auto) 0.4H, Basophils # (Auto) 0.0, Sodium Level 141, Potassium Level 4.5, Chloride Level 104, Carbon Dioxide Level 27, Anion Gap 10, Blood Urea Nitrogen 11, Creatinine 0.85, Estimat Glomerular Filtration Rate > 60, BUN/ Creatinine Ratio 13, Glucose Level 152H, Calcium Level 8.7, Phosphorus Level 3.5 , Magnesium Level 2.2, Total Bilirubin 0.5, Aspartate Amino Transf (AST/SGOT) 10 , Alanine Aminotransferase (ALT/SGPT) 21, Alkaline Phosphatase 75, Total Protein 6.1L, Albumin 3.7 Laboratory Tests 08/06/17 12:15 08/07/17 04:00 08/08/17 03:20 A/P: Assessment: PAF. 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, managed by PCP and Pulm Svce Hypertension, controlled Hyperglycemia, suggestive of DM II, managed by PCP H/o tobacco use Plan: * I reviewed his records, spoke with the patient, examined him, and answered his questions and outlined our treatment plan * We will continue propafenone for rhythm maintenance * We will continue dilt for rate control during episodes of PAF * We will continue apixaban for stroke prophylaxis * We have advised efforts at wgt loss * We have advised avoidance of tobacco use * We have advised f/u on above-noted medical issues with his PCP * We have advised close outpt cardiac f/u with Dr Rankin Clinical Quality Measures AMI/AHF: ASA po Prior to arrival: No (patient is on eliquis) EULA COLLAZO MD FACP FACC CCDS Aug 08, 2017 09:48
[2017-08-08] MEDS: DIGOXIN 0.25 MG/ML (LANOXIN) 2 ML AMP IV SCH ×3 (13:09→17:47)
[2017-08-09] VITALS (16 sets, daily range): BP systolic 114–147; BP diastolic 59–109
[2017-08-09] MEDS: PROPAFENONE 150 MG (RYTHMOL) TABLET PO SCH ×3 (02:22→18:01)
[2017-08-09] MEDS: HYDROcodone/APAP 10 MG/325 MG (LORTAB) TAB PO PRN ×4 (03:45→23:32)
[2017-08-09 03:48] LABS: BASOPHILS % (AUTO) 0 % (0-10); EOSINOPHILS # (AUTO) 0.5 10^3/uL (0.0-0.3); EOSINOPHILS % (AUTO) 5 % (0-10); HEMATOCRIT 50 % (40-54); HEMOGLOBIN 16.5 G/DL (13.3-17.7); LYMPHOCYTES % (AUTO) 33 % (12-44); MEAN CORPUSCULAR HEMOGLOBIN 29 PG (25-34); MEAN CORPUSCULAR HGB CONC 33 G/DL (32-36); MEAN CORPUSCULAR VOLUME 87 FL (80-99); MEAN PLATELET VOLUME 10.4 FL (7.4-10.4); MONOCYTES # (AUTO) 1.1 X 10^3 (0.0-1.0); MONOCYTES % (AUTO) 12 % (0-12); NEUTROPHILS # (AUTO) 4.5 X 10^3 (1.8-7.8); NEUTROPHILS % (AUTO) 49 % (42-75); PLATELET COUNT 159 10^3/uL (130-400); RED BLOOD COUNT 5.78 10^6/uL (4.35-5.85); RED CELL DISTRIBUTION WIDTH 15.5 % (10.0-14.5); WHITE BLOOD COUNT 9.2 10^3/uL (4.3-11.0)
[2017-08-09 04:17] LABS: BUN/CREATININE RATIO 12; CALCIUM 8.9 MG/DL (8.5-10.1); CARBON DIOXIDE 27 MMOL/L (21-32); CHLORIDE 102 MMOL/L (98-107); CREATININE SERUM 0.84 MG/DL (0.60-1.30); GFR ESTIMATED > 60; GLUCOSE 151 MG/DL (70-105); MAGNESIUM 2.3 MG/DL (1.8-2.4); POTASSIUM 4.2 MMOL/L (3.6-5.0); SODIUM 138 MMOL/L (135-145)
[2017-08-09] MEDS: MAGNESIUM 1 GM/100 ML IVPB 100 ML IV SCH (05:44)
[2017-08-09] MEDS: KCL 20 MEQ TAB (K-DUR) PO SCH (05:44)
[2017-08-09] MEDS: POTASSIUM CL 10MEQ/50ML IVPB 50 ML IV SCH (05:44)
[2017-08-09] MEDS: RT-ALBUTEROL/IPRATROPIUM 3 ML (DUONEB) VIAL INH SCH ×4 (06:57→18:28)
--- NOTE | 2017-08-09 07:24 | Diagnostic Imaging Report ---
EXAMINATION: Chest radiograph, portable AP view. DATE: 08/09/2017 at 0319 hours. INDICATION: 56-year-old male, atrial fibrillation. Chest pain. COMPARISON: 08/08/2017. FINDINGS: Stable overall appearance of the cardiomediastinal silhouette. There is no identified pneumothorax. There is blunting of the left lateral costophrenic angle similar to the comparison exam with mild elevation of the left hemidiaphragm. There are mildly prominent pulmonary vascular markings. There is no identified interval focal airspace consolidation. IMPRESSION: 1. Unchanged blunting of the left lateral costophrenic angle which may relate to atelectasis, infiltrate, and/or small effusion. 2. Mild prominence of the pulmonary vascular markings similar to comparison exam which potentially may reflect chronic lung changes and/or mild pulmonary vascular congestion. Overall radiographic appearance of the chest is fairly similar dating back to 07/17/2017. Dictated by: Dictated on workstation # [id number]
[2017-08-09] MEDS: APIXABAN 5 MG (ELIQUIS) TABLET PO SCH ×2 (08:33→20:40)
[2017-08-09] MEDS: DILTIAZEM 180 MG (CARDIZEM CD) CAP PO SCH (08:33)
[2017-08-09] MEDS: VERAPAMIL 5 MG/2 ML (CALAN) VIAL IV PRN (09:54)
--- NOTE | 2017-08-09 10:32 | Progress Note-Cardiology ---
Cardiology SOAP Progress Note Subjective: Notes palp Has shortness of breath as before Denies cp or syncope Objective: I&O/Vital Signs 08/08/17 08/08/17 08/09/17 08/09/17 23:00 23:25 00:00 00:00 Temp 97.1 Pulse 109 149 Resp 16 18 B/P (MAP) 103/78 (86) 147/96 (113) Pulse Ox 92 89 O2 Delivery Nasal Cannula Nasal Cannula Nasal Cannula O2 Flow Rate 3.00 3.00 3.00 08/09/17 08/09/17 08/09/17 08/09/17 01:00 01:00 02:00 03:00 Pulse 115 115 97 98 Resp 13 14 14 B/P (MAP) 125/86 (99) 124/99 (107) 119/92 (101) Pulse Ox 97 93 92 O2 Delivery Nasal Cannula Nasal Cannula Nasal Cannula O2 Flow Rate 3.00 3.00 3.00 08/09/17 08/09/17 08/09/17 08/09/17 03:44 04:00 04:00 05:00 Temp 96.8 Pulse 102 80 Resp 11 16 B/P (MAP) 114/88 (97) 120/94 (103) Pulse Ox 96 96 O2 Delivery Nasal Cannula Nasal Cannula Nasal Cannula O2 Flow Rate 3.00 3.00 3.00 08/09/17 08/09/17 08/09/17 08/09/17 06:00 06:58 07:00 07:00 Pulse 130 108 100 Resp 17 12 B/P (MAP) 117/83 (94) 135/103 (114) Pulse Ox 89 94 97 O2 Delivery Nasal Cannula Nasal Cannula Nasal Cannula O2 Flow Rate 3.00 3.00 3.00 08/09/17 08/09/17 08/09/17 08/09/17 08:00 08:00 08:00 09:00 Temp 97.0 Pulse 141 141 142 Resp 16 22 17 B/P (MAP) 142/109 (120) 142/109 (120) 141/103 (116) Pulse Ox 93 94 94 O2 Delivery Nasal Cannula Nasal Cannula Nasal Cannula Nasal Cannula O2 Flow Rate 3.00 3.00 3.00 3.00 08/09/17 00:00 Intake Total 2260 ml Output Total 1425 ml Balance 835 ml Weight (Pounds): 270 Weight (Ounces): 1.0 Weight (Calculated Kilograms): 122.707326 Constitutional: appears stated age, AAO x 3, well-developed, well-nourished Respiratory: chest is bilaterally symmetric, lungs clear to auscultation Cardiovascular: regular rate-rhythm, tachycardia, systolic murmur (faint AMALIA at card base) Gastrointestional: No tender, No soft, No round, No distended, No pulsatile mass, No organomegaly, No guarding, No rebound, No tenderness, No hernia, No mass, No audible bowel sounds, No abnormal bowel sounds, No abdominal bruits, No spleenomegaly, No other Extremities: normal capillary refill; No clubbing, No cyanosis, No significant edema Neurologic/Psychiatric: alert, normal mood/affect, oriented x 3, power is 5/5 both on sides Skin: warm/dry; No rash on exposed areas, No ulcerations on exposed areas Results/Procedures: Labs Laboratory Tests 08/09/17 03:20: White Blood Count 9.2, Red Blood Count 5.78, Hemoglobin 16.5, Hematocrit 50, Mean Corpuscular Volume 87, Mean Corpuscular Hemoglobin 29, Mean Corpuscular Hemoglobin Concent 33, Red Cell Distribution Width 15.5H, Platelet Count 159, Mean Platelet Volume 10.4, Neutrophils (%) (Auto) 49, Lymphocytes (%) (Auto) 33 , Monocytes (%) (Auto) 12, Eosinophils (%) (Auto) 5, Basophils (%) (Auto) 0, Neutrophils # (Auto) 4.5, Lymphocytes # (Auto) 3.0, Monocytes # (Auto) 1.1H, Eosinophils # (Auto) 0.5H, Basophils # (Auto) 0.0, Sodium Level 138, Potassium Level 4.2, Chloride Level 102, Carbon Dioxide Level 27, Anion Gap 9, Blood Urea Nitrogen 10, Creatinine 0.84, Estimat Glomerular Filtration Rate > 60, BUN/ Creatinine Ratio 12, Glucose Level 151H, Calcium Level 8.9, Phosphorus Level 3.0 , Magnesium Level 2.3 Microbiology 08/06/17 MRSA Screen - Final, Complete Laboratory Tests 08/08/17 03:20 08/09/17 03:20 A/P: Assessment: PAF with RVR Advanced COPD leading to chronic resp failure, managed by PCP and Pulm Svce 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
[2017-08-09] MEDS ORDERED: meTOprolol SUCCINATE 100 MG (TOPROL XL) TAB PO NR (10:45)
--- NOTE | 2017-08-09 14:14 | Progress Note (SOAP) ---
Subjective Subjective/Events-last exam Patient wanting to go home today. States that he does not feel when his heart rate increases and goes into A fib. Denies any chest pain or shortness of breath. Tolerating PO diet. Review of Systems Date Seen by Provider: Aug 09, 2017 Time Seen by Provider: 12:15 Pulmonary: No Dyspnea; Cough Cardiovascular: Edema; No: Chest Pain, Palpitations Gastrointestinal: No: Abdominal Pain Genitourinary: No Dysuria; Frequency Objective Exam Last Set of Vital Signs Vital Signs Date Time Temp Pulse Resp B/P (MAP) Pulse Ox O2 Delivery O2 Flow Rate FiO2 08/09/17 13:00 71 08/09/17 11:00 12 125/59 (81) 96 Nasal Cannula 3.00 08/09/17 10:45 32 08/09/17 08:00 97.0 Capillary Refill : Less Than 3 Seconds I&O Intake and Output 08/09/17 00:00 Intake Total 4150 ml Output Total 3350 ml Balance 800 ml Intake Oral 2150 ml IV Total 2000 ml Output Urine Total 3350 ml General: Alert, Oriented X3, Cooperative, No Acute Distress HEENT: Mucous Memb Moist/[place] Lungs: Clear to Auscultation, Normal Air Movement Heart: Other (Irregular rate) Extremities: Other (2+ pitting edema bilaterally) Neuro: Normal Speech, Cranial Nerves 3-12 NL Results/Procedures Lab Laboratory Tests 08/09/17 03:20: White Blood Count 9.2, Red Blood Count 5.78, Hemoglobin 16.5, Hematocrit 50, Mean Corpuscular Volume 87, Mean Corpuscular Hemoglobin 29, Mean Corpuscular Hemoglobin Concent 33, Red Cell Distribution Width 15.5H, Platelet Count 159, Mean Platelet Volume 10.4, Neutrophils (%) (Auto) 49, Lymphocytes (%) (Auto) 33 , Monocytes (%) (Auto) 12, Eosinophils (%) (Auto) 5, Basophils (%) (Auto) 0, Neutrophils # (Auto) 4.5, Lymphocytes # (Auto) 3.0, Monocytes # (Auto) 1.1H, Eosinophils # (Auto) 0.5H, Basophils # (Auto) 0.0, Sodium Level 138, Potassium Level 4.2, Chloride Level 102, Carbon Dioxide Level 27, Anion Gap 9, Blood Urea Nitrogen 10, Creatinine 0.84, Estimat Glomerular Filtration Rate > 60, BUN/ Creatinine Ratio 12, Glucose Level 151H, Calcium Level 8.9, Phosphorus Level 3.0 , Magnesium Level 2.3 Microbiology 08/06/17 MRSA Screen - Final, Complete Radiology Date of Exam: 08/06/17 CHEST 1 VIEW, AP/PA ONLY INDICATION: Tachycardia. TIME OF EXAM: 12:08 p.m. Correlation is made with prior study of 07/25/2017. FINDINGS: The heart size is stable. Mild chronic elevation of the left hemidiaphragm is stable. There appears to be some minimal infiltrate or atelectasis in the right base. Otherwise, the lungs are clear. The pulmonary vascularity is normal. No effusion or pneumothorax is seen. IMPRESSION: Minimal right basilar infiltrate or atelectasis. The study is otherwise unremarkable. Assessment/Plan Assessment/Plan (1) Atrial fibrillation with RVR Status: Acute Assessment & Plan: - Dr Rankin managing, patient may need cardio converted - Rate uncontrolled - Continue PO anticoagulation 08/09: Cardiology managing, started on new rate control meds, patient continues to have episodes of RVR (2) HTN (hypertension) Status: Chronic Assessment & Plan: - Controlled on home medications Qualifiers: Qualified Codes: I10 - Essential (primary) hypertension (3) HLD (hyperlipidemia) Status: Chronic Assessment & Plan: Continue on daily statin Qualifiers: Qualified Codes: E78.2 - Mixed hyperlipidemia (4) COPD (chronic obstructive pulmonary disease) with chronic bronchitis Status: Chronic Assessment & Plan: @ baseline No home oxygen MAT protocol started 08/09: Controlled (5) Tobacco abuse Status: Chronic Assessment & Plan: - Discussed the need for cessation (6) BMI 30.0-30.9,adult Status: Chronic Assessment & Plan: - Discussed the need for weight loss to help with COPD (7) DVT prophylaxis Status: Acute Assessment & Plan: - On PO anticoagulation for atrial fibrillation Clinical Quality Measures AMI/AHF: ASA po Prior to arrival: No (patient is on eliquis) DVT/VTE Risk/Contraindication: Risk Factor Score Per Nursin RFS Level Per Nursing on Admit: 4+=Very High ABDIAS NGUYEN MD Aug 09, 2017 14:14
--- NOTE | 2017-08-09 21:41 | Progress Note (SOAP) ---
Subjective Subjective/Events-last exam Patient feeling better this AM. Currently in SR. Denies CP, shortness of breath. Review of Systems Date Seen by Provider: Aug 08, 2017 Time Seen by Provider: 11:20 Pulmonary: No Dyspnea, No Cough Cardiovascular: No: Chest Pain Gastrointestinal: No: Nausea, Vomiting, Abdominal Pain Neurological: No: Weakness, Numbness Objective Exam Last Set of Vital Signs Vital Signs Date Time Temp Pulse Resp B/P (MAP) Pulse Ox O2 Delivery O2 Flow Rate FiO2 08/09/17 20:00 98.0 85 20 128/86 (100) 93 Nasal Cannula 3.00 08/09/17 10:45 32 Capillary Refill : Less Than 3 Seconds I&O Intake and Output 08/09/17 00:00 Intake Total 4150 ml Output Total 3350 ml Balance 800 ml Intake Oral 2150 ml IV Total 2000 ml Output Urine Total 3350 ml General: Alert, Oriented X3, Cooperative, No Acute Distress Lungs: Clear to Auscultation, Normal Air Movement Heart: Other (Irreglar rate, no murmurs) Abdomen: Normal Bowel Sounds, Soft, No Tenderness, No Hepatosplenomegaly, No Masses Extremities: Other (2+ pitting edema bilaterally) Results/Procedures Lab Laboratory Tests 08/09/17 03:20: White Blood Count 9.2, Red Blood Count 5.78, Hemoglobin 16.5, Hematocrit 50, Mean Corpuscular Volume 87, Mean Corpuscular Hemoglobin 29, Mean Corpuscular Hemoglobin Concent 33, Red Cell Distribution Width 15.5H, Platelet Count 159, Mean Platelet Volume 10.4, Neutrophils (%) (Auto) 49, Lymphocytes (%) (Auto) 33 , Monocytes (%) (Auto) 12, Eosinophils (%) (Auto) 5, Basophils (%) (Auto) 0, Neutrophils # (Auto) 4.5, Lymphocytes # (Auto) 3.0, Monocytes # (Auto) 1.1H, Eosinophils # (Auto) 0.5H, Basophils # (Auto) 0.0, Sodium Level 138, Potassium Level 4.2, Chloride Level 102, Carbon Dioxide Level 27, Anion Gap 9, Blood Urea Nitrogen 10, Creatinine 0.84, Estimat Glomerular Filtration Rate > 60, BUN/ Creatinine Ratio 12, Glucose Level 151H, Calcium Level 8.9, Phosphorus Level 3.0 , Magnesium Level 2.3 Microbiology 08/06/17 MRSA Screen - Final, Complete Radiology Date of Exam: 08/06/17 CHEST 1 VIEW, AP/PA ONLY INDICATION: Tachycardia. TIME OF EXAM: 12:08 p.m. Correlation is made with prior study of 07/25/2017. FINDINGS: The heart size is stable. Mild chronic elevation of the left hemidiaphragm is stable. There appears to be some minimal infiltrate or atelectasis in the right base. Otherwise, the lungs are clear. The pulmonary vascularity is normal. No effusion or pneumothorax is seen. IMPRESSION: Minimal right basilar infiltrate or atelectasis. The study is otherwise unremarkable. Assessment/Plan Assessment/Plan (1) Atrial fibrillation with RVR Status: Acute Assessment & Plan: - Dr Rankin managing, patient may need cardio converted - Rate uncontrolled - Continue PO anticoagulation 08/08: Patient in SR in AM but this afternoon when back into A fib with RVR, will stay for monitoring 08/09: Cardiology managing, started on new rate control meds, patient continues to have episodes of RVR (2) HTN (hypertension) Status: Chronic Assessment & Plan: - Controlled on home medications Qualifiers: Qualified Codes: I10 - Essential (primary) hypertension (3) HLD (hyperlipidemia) Status: Chronic Assessment & Plan: Continue on daily statin Qualifiers: Qualified Codes: E78.2 - Mixed hyperlipidemia (4) COPD (chronic obstructive pulmonary disease) with chronic bronchitis Status: Chronic (5) Tobacco abuse Status: Chronic (6) BMI 30.0-30.9,adult Status: Chronic Assessment & Plan: - Discussed the need for weight loss to help with COPD (7) DVT prophylaxis Status: Acute Assessment & Plan: - On PO anticoagulation for atrial fibrillation Clinical Quality Measures AMI/AHF: ASA po Prior to arrival: No (patient is on eliquis) DVT/VTE Risk/Contraindication: Risk Factor Score Per Nursin RFS Level Per Nursing on Admit: 4+=Very High ABDIAS NGUYEN MD Aug 09, 2017 21:41
[2017-08-10] MEDS: PROPAFENONE 150 MG (RYTHMOL) TABLET PO SCH ×2 (02:32→10:25)
[2017-08-10 03:40] LABS: BASOPHILS % (AUTO) 0 % (0-10); EOSINOPHILS # (AUTO) 0.6 10^3/uL (0.0-0.3); EOSINOPHILS % (AUTO) 6 % (0-10); HEMATOCRIT 46 % (40-54); LYMPHOCYTES # (AUTO) 2.9 X 10^3 (1.0-4.0); LYMPHOCYTES % (AUTO) 33 % (12-44); MEAN CORPUSCULAR HGB CONC 32 G/DL (32-36); MEAN CORPUSCULAR VOLUME 89 FL (80-99); MEAN PLATELET VOLUME 10.5 FL (7.4-10.4); MONOCYTES # (AUTO) 1.1 X 10^3 (0.0-1.0); MONOCYTES % (AUTO) 13 % (0-12); NEUTROPHILS # (AUTO) 4.4 X 10^3 (1.8-7.8); NEUTROPHILS % (AUTO) 49 % (42-75); RED CELL DISTRIBUTION WIDTH 15.2 % (10.0-14.5)
[2017-08-10 03:45] LABS: PLATELET COUNT 140 10^3/uL (130-400)
[2017-08-10 03:46] LABS: HEMOGLOBIN 16.2 G/DL (13.3-17.7); MEAN CORPUSCULAR HEMOGLOBIN 28 PG (25-34)
[2017-08-10 04:00] VITALS: BP 108/57
[2017-08-10 04:04] LABS: BUN/CREATININE RATIO 12; CALCIUM 9.2 MG/DL (8.5-10.1); CARBON DIOXIDE 29 MMOL/L (21-32); CHLORIDE 100 MMOL/L (98-107); CREATININE SERUM 1.02 MG/DL (0.60-1.30); GFR ESTIMATED > 60; GLUCOSE 143 MG/DL (70-105); MAGNESIUM 2.5 MG/DL (1.8-2.4); PHOSPHORUS 3.8 MG/DL (2.3-4.7); POTASSIUM 4.4 MMOL/L (3.6-5.0); SODIUM 139 MMOL/L (135-145)
[2017-08-10] MEDS: HYDROcodone/APAP 10 MG/325 MG (LORTAB) TAB PO PRN ×2 (05:52→11:28)
[2017-08-10] MEDS: RT-ALBUTEROL/IPRATROPIUM 3 ML (DUONEB) VIAL INH SCH ×2 (07:39→10:45)
[2017-08-10 08:30] VITALS: BP 119/82
[2017-08-10] MEDS: DILTIAZEM 180 MG (CARDIZEM CD) CAP PO SCH (08:46)
[2017-08-10] MEDS: APIXABAN 5 MG (ELIQUIS) TABLET PO SCH (08:46)
[2017-08-10] MEDS ORDERED: meTOprolol SUCCINATE 100 MG (TOPROL XL) TAB PO SCH (09:00)
--- NOTE | 2017-08-10 09:45 | Discharge Summary ---
Diagnosis/Chief Complaint Date of Admission Aug 06, 2017 at 14:01 Date of Discharge 08/10/2017 Admission Diagnosis Admission Diagnosis Atrial fibrillation with RVR HTN HLD COPD with home oxygen supplementation 3L Tobacco Abuse Discharge Diagnosis See Above Chief Complaint/HPI Chief Complaint/HPI 56 yo M with recent admission for COPD exacerbation and was found to be in atrial flutter. Patient at that time spontaneously converted with rate control medications. He was then found to be in atrial fibrillation and then was set up for BRAEDEN. During procedure he converted. Today he presented to ER with palpitations and chest discomfort. He was found to be in atrial fibrillation with RVR 130-140s. This AM patient denies any palpitations or chest pain and is currently in SR. He has been in A fib this AM and has spontaneously went back and forth. Cardiology managing arrhythmia. Patient has h/o COPD and continues to use tobacco. He follows with Dr Longo as outpatient for COPD. Discharge Summary-Simple/Stand Consultations Dr Fulton, Cardiology Discharge Physical Examination Allergies: Coded Allergies: gabapentin (Verified Adverse Reaction, Mild, UPSET STOMACH, 07/17/17) Vitals & I&Os Vital Sign - Last 12Hours Date Time Temp Pulse Resp B/P (MAP) Pulse Ox O2 Delivery O2 Flow Rate FiO2 08/10/17 08:30 98.2 68 20 119/82 (94) 93 Nasal Cannula 3.00 08/09/17 10:45 32 Intake and Output 08/10/17 00:00 Intake Total 660 ml Output Total 1025 ml Balance -365 ml General Appearance: Alert, Oriented X3, Cooperative, No Acute Distress HEENT: Mucous Memb Moist/[place] Respiratory: Clear to Auscultation, Normal Air Movement Cardiovascular: No Murmurs, Other (SR with irregular rate) Abdominal: Normal Bowel Sounds, Soft, No Tenderness, No Hepatosplenomegaly, No Masses Extremities: Other (2+ pitting edema equal bilaterally) Skin: No Rashes Neuro: Normal Speech, Strength at 5/5 X4 Ext, Sensation Intact, Cranial Nerves 3-12 NL Psych/Mental Status: Mental Status NL, Mood NL Hospital Course See final discharge diagnosis. Radiology Reviewed Date of Exam: 08/06/17 CHEST 1 VIEW, AP/PA ONLY INDICATION: Tachycardia. TIME OF EXAM: 12:08 p.m. Correlation is made with prior study of 07/25/2017. FINDINGS: The heart size is stable. Mild chronic elevation of the left hemidiaphragm is stable. There appears to be some minimal infiltrate or atelectasis in the right base. Otherwise, the lungs are clear. The pulmonary vascularity is normal. No effusion or pneumothorax is seen. IMPRESSION: Minimal right basilar infiltrate or atelectasis. The study is otherwise unremarkable. Discussion & Recommendations 56 yo M that presented to ER with palpitations and increasing shortness of breath Atrial fibrillation with RVR: Cardiology was consulted and managed rate medications. Patient required increase in medications to get rate controlled. Patient converted to SR several times prior to discharge but was SR for >12hrs before he was discharged home. HTN: Controlled on home meds HLD: Continue statin COPD with home oxygen supplementation 3L: Patient was stable on home oxygen of 3L. MAT protocol. Patient has CPAP fitting and PFTs Friday. Follows with Dr Longo Tobacco Abuse: Discussed the importance of cessation. Patient was discharge home with close follow up with PCP Sunni Tavera at [facility] Discharge Condition at discharge stable Instructions to patient/family Please see electronic discharge instructions given to patient. Discharge Medications Reviewed and agree with Discharge Medication list on patient's Discharge Instruction sheet Clinical Quality Measures AMI/AHF: ASA po Prior to arrival: No (patient is on eliquis) DVT/VTE Risk/Contraindication: Risk Factor Score Per Nursin RFS Level Per Nursing on Admit: 4+=Very High Copy Copies To 1: [facility] MD Aug 10, 2017 09:45
[2017-08-10] MEDS ORDERED: PROP150T2 PO (13:43)
[2017-08-10] MEDS ORDERED: METO-395 PO (13:43)
--- NOTE | 2017-08-10 13:47 | Progress Note-Cardiology ---
Cardiology SOAP Progress Note Subjective: Feels better and wishes to go home No palp No cp No syncope Shortness of breath now at its usual baseline Objective: I&O/Vital Signs 08/10/17 08/10/17 08/10/17 08/10/17 04:00 07:00 07:40 08:00 Temp 97.5 Pulse 72 73 Resp 16 B/P (MAP) 108/57 (74) Pulse Ox 93 93 93 O2 Delivery Nasal Cannula Nasal Cannula Nasal Cannula O2 Flow Rate 3.00 3.00 3.00 08/10/17 08/10/17 08:30 10:46 Temp 98.2 Pulse 68 Resp 20 B/P (MAP) 119/82 (94) Pulse Ox 93 94 O2 Delivery Nasal Cannula Nasal Cannula O2 Flow Rate 3.00 3.00 08/10/17 00:00 Intake Total 660 ml Output Total 1025 ml Balance -365 ml Weight (Pounds): 270 Weight (Ounces): 1.0 Weight (Calculated Kilograms): [id number] Constitutional: appears stated age, AAO x 3, well-developed, well-nourished Respiratory: chest is bilaterally symmetric, lungs clear to auscultation Cardiovascular: regular rate-rhythm, tachycardia, systolic murmur (faint AMALIA at card base) Gastrointestional: No tender; soft; No guarding, No rebound; audible bowel sounds Extremities: normal capillary refill; No clubbing, No cyanosis, No significant edema Neurologic/Psychiatric: alert, normal mood/affect, oriented x 3, power is 5/5 both on sides Skin: warm/dry; No rash on exposed areas, No ulcerations on exposed areas Results/Procedures: Labs Laboratory Tests 08/10/17 03:20: White Blood Count 9.0, Red Blood Count 5.70, Hemoglobin 16.2, Hematocrit 46, Mean Corpuscular Volume 89, Mean Corpuscular Hemoglobin 28, Mean Corpuscular Hemoglobin Concent 32, Red Cell Distribution Width 15.2H, Platelet Count 140, Mean Platelet Volume 10.5H, Neutrophils (%) (Auto) 49, Lymphocytes (%) (Auto) 33 , Monocytes (%) (Auto) 13H, Eosinophils (%) (Auto) 6, Basophils (%) (Auto) 0, Neutrophils # (Auto) 4.4, Lymphocytes # (Auto) 2.9, Monocytes # (Auto) 1.1H, Eosinophils # (Auto) 0.6H, Basophils # (Auto) 0.0, Sodium Level 139, Potassium Level 4.4, Chloride Level 100, Carbon Dioxide Level 29, Anion Gap 10, Blood Urea Nitrogen 12, Creatinine 1.02, Estimat Glomerular Filtration Rate > 60, BUN/ Creatinine Ratio 12, Glucose Level 143H, Calcium Level 9.2, Phosphorus Level 3.8 , Magnesium Level 2.5H Microbiology 08/06/17 MRSA Screen - Final, Complete Laboratory Tests 08/09/17 03:20 08/10/17 03:20 A/P: Assessment: PAF with RVR, now in NSR Advanced COPD leading to chronic resp failure, managed by PCP and Pulm Svce 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
== END 2017-08-10 14:35 | disposition home or self-care (01) | DRG 310 ==
LOC: EDUNIT# 11:44 → ER 11:45 → ICU 14:01
PROVIDERS: ADMIT Family Medicine; ATTEND Family Medicine
DX: I48.0 Paroxysmal atrial fibrillation (principal); I10 Essential (primary) hypertension; E78.2 Mixed hyperlipidemia; J43.9 Emphysema, unspecified; R73.9 Hyperglycemia, unspecified; Z99.81 Dependence on supplemental oxygen; E66.9 Obesity, unspecified; F17.210 Nicotine dependence, cigarettes, uncomplicated; Z68.30 Body mass index [BMI] 30.0-30.9, adult
CPT/HCPCS: 36415; 71045; 80048; 80053; 80061; 80162; 83735; 83874; 83880; 84100; 84484; 85025; 85610; 85730; 87081; 93005; 93041; 94640; 94760; 96374; 96376

== ENCOUNTER → 2017-08-11 | Outpatient (CLI) | payer MEDICAID, OTHER ==
[~2017-08-11] MED LIST changes: +FLUT1AER IH; +METO-395 PO; +PROP150T2 PO; +RT-ALBUTEROL SULF 2.5 MG/3 ML PRE-MIX VIAL INH ONE
== END ==
LOC: RT 15:26
PROVIDERS: ATTEND Nurse Practitioner Family
DX: J96.20 Acute and chronic respiratory failure, unspecified whether with hypoxia or hypercapnia (principal); F17.200 Nicotine dependence, unspecified, uncomplicated; E66.9 Obesity, unspecified
CPT/HCPCS: 94060; 94726; 94729

== ENCOUNTER 2017-08-23 20:13 | Outpatient (CLI) | payer OTHER ==
[~2017-08-23 20:13] MED LIST changes: -RT-ALBUTEROL SULF 2.5 MG/3 ML PRE-MIX VIAL INH ONE
== END 2017-08-24 06:40 | disposition home or self-care (01) ==
LOC: SLEEP 20:13
PROVIDERS: ATTEND Nurse Practitioner Family
DX: G47.50 Parasomnia, unspecified (principal); J96.20 Acute and chronic respiratory failure, unspecified whether with hypoxia or hypercapnia
CPT/HCPCS: 95811

== ENCOUNTER 2017-09-01 08:00 | Outpatient (RCR) | payer MEDICAID, OTHER ==
[2017-10-14 14:00] VITALS: BP 120/60
[2017-10-14 15:00] VITALS: BP 120/60
[2017-10-16 13:50] VITALS: BP 100/62
[2017-10-16 14:45] VITALS: BP 96/63
[2017-10-21 14:00] VITALS: BP 130/60
[2017-11-04 14:15] VITALS: BP 110/80
[2017-11-04 15:10] VITALS: BP 130/50
[2017-11-11 13:50] VITALS: BP 118/70
[2017-11-11 14:44] VITALS: BP 108/60
[2017-11-18 09:35] VITALS: BP 120/40
[2017-11-18 10:08] VITALS: BP 122/60
[2017-11-20 14:00] VITALS: BP 99/60
[2017-11-20 14:33] VITALS: BP 123/60
[2017-11-25 14:00] VITALS: BP 125/60
[2017-11-25 15:00] VITALS: BP 121/60
== END 2017-11-30 | disposition home or self-care (01) ==
LOC: PULM 08:00
PROVIDERS: ATTEND Nurse Practitioner Family
DX: J96.20 Acute and chronic respiratory failure, unspecified whether with hypoxia or hypercapnia (principal); E66.9 Obesity, unspecified; F17.200 Nicotine dependence, unspecified, uncomplicated
CPT/HCPCS: 99211

== ENCOUNTER 2017-09-25 10:00 | Outpatient (RCR) | payer MEDICAID, OTHER | END 2017-11-30 | disposition home or self-care (01) | LOC: CARD 10:00 | PROVIDERS: ATTEND Internal Medicine Interventional Cardiology | DX: I48.91 Unspecified atrial fibrillation (principal); I48.92 Unspecified atrial flutter ==

== ENCOUNTER 2017-12-01 08:00 | Outpatient (RCR) | payer MEDICAID ==
[2017-12-11 14:00] VITALS: BP 132/60
[2017-12-11 15:00] VITALS: BP 100/60
== END 2017-12-26 | disposition home or self-care (01) ==
LOC: PULM 08:00
PROVIDERS: ATTEND Nurse Practitioner Family
DX: J96.20 Acute and chronic respiratory failure, unspecified whether with hypoxia or hypercapnia (principal); E66.9 Obesity, unspecified; F17.200 Nicotine dependence, unspecified, uncomplicated

== ENCOUNTER 2018-07-16 05:47 | Outpatient (CLI) | payer MEDICAID ==
[~2018-07-16] VITALS: Ht 188 cm; Wt 124.3 kg
[2018-07-16] MEDS ORDERED: FURO40TA4 PO (13:23)
[2018-07-16] MEDS ORDERED: METO-395 PO (13:23)
== END 2018-07-16 13:28 | disposition home or self-care (01) ==
LOC: PREOP 05:47
PROVIDERS: ATTEND Internal Medicine Interventional Cardiology
DX: Z01.818 Encounter for other preprocedural examination (principal)

== ENCOUNTER → 2018-07-23 | Outpatient (CLI) | payer MEDICAID ==
[~2018-07-23] VITALS: Ht 188 cm; Wt 121.6 kg
[~2018-07-23] MED LIST changes: +CATHETER FLUSH 10 ML SYR IV PRN; +FURO40TA4 PO
[2018-07-23 08:58] VITALS: BP 145/87
[2018-07-23 09:01] VITALS: BP 157/84
[2018-07-23 09:02] VITALS: BP 157/84
== END ==
LOC: CARD 06:55
PROVIDERS: ATTEND Internal Medicine Interventional Cardiology
DX: Z01.810 Encounter for preprocedural cardiovascular examination (principal); J44.9 Chronic obstructive pulmonary disease, unspecified; R06.00 Dyspnea, unspecified; J96.20 Acute and chronic respiratory failure, unspecified whether with hypoxia or hypercapnia
CPT/HCPCS: 78452; 93017

== ENCOUNTER → 2018-08-05 | Outpatient (CLI) | payer MEDICAID ==
[~2018-08-05] MED LIST changes: -CATHETER FLUSH 10 ML SYR IV PRN; +RT-ALBUTEROL SULF 2.5 MG/3 ML PRE-MIX VIAL INH ONE
== END ==
LOC: RT 14:29
PROVIDERS: ATTEND Nurse Practitioner Family
DX: J96.20 Acute and chronic respiratory failure, unspecified whether with hypoxia or hypercapnia (principal); J44.9 Chronic obstructive pulmonary disease, unspecified; F17.200 Nicotine dependence, unspecified, uncomplicated; I48.91 Unspecified atrial fibrillation; G47.30 Sleep apnea, unspecified
CPT/HCPCS: 94060; 94726; 94729

== ENCOUNTER 2018-08-18 05:47 | Outpatient (CLI) | payer MEDICAID ==
[~2018-08-18] VITALS: Ht 188 cm; Wt 121.6 kg
[~2018-08-18 05:47] MED LIST changes: -RT-ALBUTEROL SULF 2.5 MG/3 ML PRE-MIX VIAL INH ONE
== END 2018-08-19 09:47 | disposition home or self-care (01) ==
LOC: PREOP 05:47
PROVIDERS: ATTEND Internal Medicine Interventional Cardiology
DX: Z01.818 Encounter for other preprocedural examination (principal)

== ENCOUNTER → 2018-08-19 | Outpatient (CLI) | payer MEDICAID ==
[~2018-08-19] MED LIST changes: +HOLD METFORMIN - RECEIVED CONTRAST 20 ML VIAL IV SCH; +IOHEXOL 350 MG/ML 100 ML (OMNIPAQUE 350) VIAL IV ONE
[2018-08-19 14:03] LABS: BUN/CREATININE RATIO 10; CREATININE SERUM 0.89 MG/DL (0.60-1.30); GFR ESTIMATED > 60
--- NOTE | 2018-08-19 15:17 | Diagnostic Imaging Report ---
PROCEDURE: CT chest with contrast only. TECHNIQUE: Multiple contiguous axial images were obtained through the chest after administration of intravenous contrast. Auto Exposure Controls were utilized during the CT exam to meet ALARA standards for radiation dose reduction. INDICATION: COPD, shortness of air, and cough. COMPARISON: Comparison is made with prior CT chest from 10/23/2017. FINDINGS: No axillary lymphadenopathy is seen. No definite hilar or mediastinal lymphadenopathy is detected. No pericardial or pleural fluid is identified. Central airways are patent. There are significant centrilobular emphysematous changes throughout both lungs. Calcified nodules in the right upper lobe are stable and consistent with granulomas. Left hemidiaphragms are elevated with some resultant subsegmental atelectasis in the left lower lobe and lingula. No parenchymal mass or infiltrate is detected. Upper abdomen is unremarkable IMPRESSION: Centrilobular emphysematous changes, stable when compared with exam from 10/23/2017. No thoracic lymphadenopathy or pulmonary parenchymal mass or infiltrate is detected. Dictated by: Dictated on workstation # [id number]
== END ==
LOC: RAD 13:35
PROVIDERS: ATTEND Nurse Practitioner Family
DX: J43.2 Centrilobular emphysema (principal); J96.20 Acute and chronic respiratory failure, unspecified whether with hypoxia or hypercapnia; I48.91 Unspecified atrial fibrillation; G47.34 Idiopathic sleep related nonobstructive alveolar hypoventilation; F17.200 Nicotine dependence, unspecified, uncomplicated
CPT/HCPCS: 36415; 71260; 82565; 84520

== ENCOUNTER 2018-08-24 08:45 | Day surgery (SDC) | payer MEDICAID ==
[2018-08-24] VITALS (18 sets, daily range): BP systolic 72–144; BP diastolic 45–99
[~2018-08-24] VITALS: Ht 188 cm; Wt 120.2 kg
[~2018-08-24 08:45] MED LIST changes: -HOLD METFORMIN - RECEIVED CONTRAST 20 ML VIAL IV SCH; -IOHEXOL 350 MG/ML 100 ML (OMNIPAQUE 350) VIAL IV ONE
[2018-08-24] MEDS ORDERED: NS IV 1000 ML 1,000 ML ONE (08:49)
[2018-08-24] MEDS ORDERED: LIDOCAINE 1% INJ 20 ML 20 ML VIAL ONE (08:49)
[2018-08-24] MEDS ORDERED: HEParin (CATH LAB) 2,000 ML IV ONE (08:49)
[2018-08-24] MEDS ORDERED: NS IV 1000 ML 1,000 ML IV SCH (08:54)
[2018-08-24] MEDS ORDERED: ISOPROTERENOL 0.2 MG/D5W 50 ML IV ONE (09:00)
[2018-08-24 09:34] LABS: INR 0.9 (0.8-1.4); PROTHROMBIN TIME PATIENT 12.8 SEC (12.2-14.7)
[2018-08-24 09:46] LABS: ALANINE AMINOTRANSFERASE 29 U/L (0-55); ALBUMIN 4.6 GM/DL (3.2-4.5); ALKALINE PHOSPHATASE 88 U/L (40-136); BILIRUBIN,TOTAL 0.7 MG/DL (0.1-1.0); BUN/CREATININE RATIO 9; CALCIUM 9.5 MG/DL (8.5-10.1); CARBON DIOXIDE 28 MMOL/L (21-32); CHLORIDE 101 MMOL/L (98-107); CREATININE SERUM 1.05 MG/DL (0.60-1.30); GFR ESTIMATED > 60; GLUCOSE 119 MG/DL (70-105); POTASSIUM 4.2 MMOL/L (3.6-5.0); SODIUM 140 MMOL/L (135-145); TOTAL PROTEIN 7.5 GM/DL (6.4-8.2)
[2018-08-24] MEDS ORDERED: POTA10CA43 PO (10:21)
[2018-08-24] MEDS ORDERED: FLUT1AER IH (10:21)
[2018-08-24] MEDS ORDERED: DILT180T9 PO (10:21)
--- NOTE | 2018-08-24 10:22 | NUR ---
Patient did not bring a list or bottles. He stated a few he took. Did not know any of the strengths. Called [facility]. He stated he took Diazepam 2 tabs daily(Pharmacy has not filled since 2016). Metoprolol succ 100mg 1/2 tab(Not filled since 2017). Propafenone 225mg Q8H (Not filled since May 2018 can not get) Shawn last filled 06/2017.
[2018-08-24] MEDS ORDERED: proPOfol 200 MG/20 ML (DIPRIVAN) VIAL IV ONE (11:25)
[2018-08-24] MEDS ORDERED: fentaNYL INJECTION 100 MCG/2 ML AMP ONE (11:25)
[2018-08-24] MEDS ORDERED: DEXAMETHASONE 10 MG/ML (DECADRON) 1 ML VIAL ONE (11:25)
[2018-08-24] MEDS ORDERED: MIDAZOLAM 2 MG/2 ML (VERSED) VIAL ONE (11:25)
[2018-08-24] MEDS ORDERED: ONDANSETRON 4 MG/2 ML (SDV) Z0FRAN ONE (11:26)
[2018-08-24 11:27] LABS: HEMOGLOBIN 16.6 G/DL (13.3-17.7); MEAN PLATELET VOLUME 11.5 FL (7.4-10.4); RED CELL DISTRIBUTION WIDTH 14.7 % (10.0-14.5); WHITE BLOOD COUNT 9.3 10^3/uL (4.3-11.0)
[2018-08-24] MEDS ORDERED: PHENYLEPHRINE 100 MCG/ML 10 ML (ANESTHESIA) SYR ONE (11:58)
[2018-08-24] MEDS ORDERED: ADENOSINE 6 MG/2 ML (ADENOCARD) VIAL IV ONE (14:21)
[2018-08-24] MEDS ORDERED: LACTATED RINGERS 1,000 ML IV ONE (14:50)
--- NOTE | 2018-08-24 14:51 | Cardiac Procedure Note-CS/ASA ---
Pre-Procedure Note Pre-Op Procedure Note H&P Reviewed The H&P was reviewed, patient examined and no changes noted. Date H&P Reviewed: Aug 24, 2018 Time H&P Reviewed: 11:00 Conscious Sedation Pre-Proced Time 11:00 ASA Score 3 For ASA 3 and 4: Consider anesthesia and medical clearance. Also, for patients with a history of failed moderate sedation consider anesthesia. Airway Lungs Heart ASA score ASA 1: a normal healthy patient ASA 2: a patient with a mild systemic disease (mid diabetes, controlled hypertension, obesity ASA 3: a patient with a severe systemic disease that limits activity (angina , COPD, prior Myocardial infarction) ASA 4: a patient with an incapacitating disease that is a constant threat to life (CHF, renal failure) ASA 5: a moribund patient not expected to survive 24 hrs. (ruptured aneurysm) ASA 6: a declared brain- patient whose organs are being harvested. For emergent operations, add the letter E after the classification Mallampati Classification Grade 1 Sedation Plan Analgesia, Amnesia, Plan communicated to team members, Discussed options with patient/fam, Discussed risks with patient/fam The patient is an appropriate candidate to undergo the planned procedure, sedation, and anesthesia. The patient immediately re-assessed prior to indication. Marisol ORTEGA MD Aug 24, 2018 14:51
--- NOTE | 2018-08-24 14:56 | History & Physicial-Cardiolgy ---
HPI-Cardiology Cardiology Consultation: Date of Consultation 08/24/18 Date of Admission Attending Physician Marisol Rankin MD Admitting Physician [facility] Consulting Physician Marisol RANKIN MD HPI: Time Seen by a Provider: 11:00 Chief Complaint: Palpitations This is a 57-year-old gentleman who has significant shortness of breath, active smoking and COPD. He had atrial flutter with 2-1 AV block. He converted to sinus rhythm on amiodarone. He was started on Eliquis. Patient also had atrial fibrillation with rapid ventricular rate and was started on propafenone. Typical atrial flutter ablation was recommended. Review of Systems-Cardiology Review of Systems Constitutional: As described under HPI; No As described under HPI, No no symptoms reported, No chills, No fever, No lightheadedness Eyes: No As described under HPI, No no symptoms reported, No blindness, No blurred vision, No contact lenses, No drainage, No decreased acuity, No foreign body sensation, No pain, No vision change Ears/Nose/Throat: No As described under HPI, No no symptoms reported, No chronic hearing loss, No ear discharge, No ear pain, No nasal drainage, No ulcerations Respiratory: No no symptoms reported; As described under HPI; No As described under HPI, No cough, No orthopnea; shortness of breath; No SOB with excertion Cardiovascular: No no symptoms reported; As described under HPI; No As described under HPI, No chest pain, No edema, No irregular heart rate, No lightheadedness; palpitations Gastrointestinal: No no symptoms reported, No As described under HPI, No abdomen distended, No abdominal pain, No blood streaked bowels, No constipation , No diarrhea, No nausea, No vomiting, No stool coloration changes Genitourinary: No As described under HPI, No burning, No dysuria, No discharge , No frequency, No flank pain, No hematuria, No urgency Skin: No rash, No skin related problems, No ulcerations Psychiatric/Neurological: No anxiety, No depression, No seizure, No focal weakness, No syncope Hematologic: No bleeding abnormalities FJF-Olyaam-Ewphbq Hx Patient Social History Alcohol Use: Denies Use Recreational Drug Use: No Drug of Choice: PAST HX Smoking Status: Current Everyday Smoker Type Used: Cigarettes 2nd Hand Smoke Exposure: No Recent Foreign Travel: No Recent Infectious Disease Expo: No Immunizations Up To Date Tetanus Booster (TDap): Unknown Date of Pneumonia Vaccine: Apr 28, 2009 Date of Influenza Vaccine: Jul 19, 2017 Past Medical History PMH As described under Assessment. Family Medical History Family Medical History: Does not report fam h/o early CAD or SCD Allergies and Home Medications Allergies Coded Allergies: gabapentin (Verified Adverse Reaction, Mild, UPSET STOMACH, 07/17/17) Home Medications Acetaminophen 500 Mg Tablet, 500-1,000 MG PO Q6H PRN for PAIN-MILD, (Reported) Albuterol Sulfate 1 Puff Puff, 2 PUFF IH Q4H PRN for SHORTNESS OF BREATH, ( Reported) 1 PUFF = 90 MCG Apixaban 5 Mg Tablet, 5 MG PO BID, (Reported) Diltiazem HCl 180 Mg Tab.er.24h, 180 MG PO DAILY, (Reported) Fluticasone/Vilanterol 1 Each Blst.w.dev, 1 EACH IH DAILY, (Reported) Furosemide 40 Mg Tablet, 40 MG PO DAILY, (Reported) Potassium Chloride 10 Meq Capsule.er, 10 MEQ PO BID, (Reported) Patient Home Medication List Home Medication List Reviewed: Yes Physical Exam-Cardiology Physical Exam Vital Signs/I&O 08/24/18 09:19 Temp 99.1 Pulse 130 Resp 22 B/P (MAP) 142/99 (113) Pulse Ox 97 O2 Delivery Nasal Cannula O2 Flow Rate 3.00 Capillary Refill : Constitutional: appears stated age; No apparent distress; well-developed, well- nourished HEENT: PERRL; No discharge; hearing is well preserved, oral hygience is good; No ulceration, No xanthelasmas are seen Neck: No carotid bruit; carotid pulses are 2 + bilaterally Respiratory: No accessory muscle use, No respiratory distress, No chest tender , No chest expansion is symmetric; chest is bilaterally symmetric; No lungs clear to percussion, No lungs clear to auscultation, No crackles, No rhonchi, No rales, No stridor, No wheezing, No pleural rub, No other Cardiovascular: regular rate-rhythm, tachycardia, S1 and S2 Gastrointestinal: No tender, No soft, No round, No distended, No pulsatile mass , No organomegaly, No guarding, No rebound, No tenderness, No hernia, No mass, No audible bowel sounds, No abnormal bowel sounds, No abdominal bruits, No spleenomegaly, No other Rectal: deferred Extremities: No normal range of motion, No non-tender, No normal inspection, No pedal edema, No calf tenderness, No normal capillary refill, No pelvis stable , No calf tenderness, No inflammation, No pedal edema, No slow capillary refill , No swelling, No other, No abrasion, No clubbing, No cyanosis, No ecchymosis, No laceration, No no lower extremity edema bilateral, No significant edema, No tenderness, No wound Neurologic/Psychiatric: no motor/sensory deficits, alert, normal mood/affect, oriented x 3, power is 5/5 both on sides Skin: No rash, No ulcerations Data Review Labs Laboratory Tests 08/24/18 09:10: White Blood Count 9.3, Red Blood Count 5.84, Hemoglobin 16.6, Hematocrit 52, Mean Corpuscular Volume 88, Mean Corpuscular Hemoglobin 28, Mean Corpuscular Hemoglobin Concent 32, Red Cell Distribution Width 14.7H, Platelet Count 222, Mean Platelet Volume 11.5H, Prothrombin Time 12.8, INR Comment 0.9, Activated Partial Thromboplast Time 34, Sodium Level 140, Potassium Level 4.2, Chloride Level 101, Carbon Dioxide Level 28, Anion Gap 11, Blood Urea Nitrogen 9, Creatinine 1.05, Estimat Glomerular Filtration Rate > 60, BUN/Creatinine Ratio 9 , Glucose Level 119H, Calcium Level 9.5, Corrected Calcium , Total Bilirubin 0.7 , Aspartate Amino Transf (AST/SGOT) 20, Alanine Aminotransferase (ALT/SGPT) 29, Alkaline Phosphatase 88, Total Protein 7.5, Albumin 4.6H ECG Impression ECG Comment Typical Atrial flutter with 2-1 AV block. A/P-Cardiology Assessment/Admission Diagnosis Typical atrial flutter, Paroxysmal atrial fibrillation, COPD Admission Status: Observation Plan Typical atrial flutter ablation is recommended. Marisol RANKIN MD Aug 24, 2018 14:55
[2018-08-24] MEDS ORDERED: PATIENT MAY USE OWN MEDS, ALL PO SCH (15:00)
--- NOTE | 2018-08-24 15:19 | Electrophysiology Procedure ---
EP Procedure DATE OF SERVICE:08/24/18 Typical atrial flutter ablation operative report CARDIAC BLUEPRINT BLOCKER: Chino Rankin MD, [facility], [facility]. INDICATION: Typical atrial flutter. PREOPERATIVE DIAGNOSIS: Typical atrial flutter POSTOPERATIVE DIAGNOSES: Successful typical atrial flutter ablation, right- sided PAC ablation. HISTORY: This is a 57-year-old gentleman who has history of significant COPD. He presented with typical atrial flutter with 2-1 AV block. He also has history of paroxysmal atrial fibrillation and is on propafenone and oral anticoagulation. The patient is planned for comprehensive EP study and ablation. PROCEDURE PERFORMED: 1. Comprehensive EP study with induction. 2. Fluoroscopy. 3. CS pacing. 4. Drug infusion. 5. Ablation of typical atrial flutter. 6. Ablation of right-sided PAC. 7. Comprehensive 3D mapping with the carto system. COMPLICATION: None. ESTIMATED BLOOD LOSS: 10 mL. CONTRAST USED: None. FLUOROSCOPY TIME: 8.13 minutes FLUOROSCOPY DOSE: 192 mgy. SPECIMENS: None. ANESTHESIA: Done by our anesthesia colleagues. ANTICOAGULATION: Eliquis. PROCEDURE IN DETAIL: After informed consent was taken, the patient was brought to the EP lab. Anesthesia was provided by our anesthesia colleagues. The patient was draped and prepped in the usual sterile fashion. The patient presented to the EP lab in atrial flutter. Access was gained in the right femoral vein with a 6-Kinyarwanda and an 8-Kinyarwanda sheath. Left access in left femoral vein was gained with 5-Kinyarwanda and 6-Kinyarwanda sheath respectively. High right atrial catheter was an ablation catheter, right ventricular catheter was placed, his catheter and the CS catheter were also placed. A comprehensive EP study was done including a left-sided CS pacing.Pacing From the CTI entrained tachycardia with post pacing interval of less than 10 ms. Pacing from proximal CS electrodes, PPI was within 30 ms. Pacing was also Performed from distal CS electrodes and PPI was over 100 ms. Therefore, A diagnosis of right-sided typical atrial flutter was confirmed. A 3D electroanatomic mapping was donewith the carto system. Ablation was performed in the cavotricuspid isthmus.However, after ablation Line was completed the patient was still in atrial flutter. Therefore we performed Further mapping with suggested breakthrough/gap right next to the inferior vena cava. Therefore further ablation was performed and tachycardia terminated. CS pacing and pacing from the ablation catheter at different positions on the lateral side of the ablation line were used to verify bidirectional block. At this point in time we noted PAC in a trigeminy pattern. P wave morphology Demonstrated right superior posterior origin of PAC. Activation mapping Was done which demonstrated focal mechanism with earliest activation From the superior septal portion of the right atrium. Ablation was done Which did not terminate the PACs. Differential include PACs originating From the right superior pulmonary vein. We decided not to go transseptal At this point in time. We then waited for 30 minutes and rechecked and confirmed bidirectional block.Isuprel was given post-procedure,however, we could not induce atrial flutter.The patienttolerated the procedurewell and did not have any complication. The patientleft the lab in sinus rhythm. Total ablation time was 47 minutes. MEASUREMENTS/EP STUDY: HV interval 45 ms, AH interval 141 ms, QRS duration 114 ms, AR interval 198 ms, R-R interval 491 ms, AH interval 242 ms, AV Wenckebach cycle length 310 ms, Retrograde Wenckebach cycle length below 220 ms. Atrial ERP 450/180 ms. Patient did not have dual AV marily physiology. PLAN: The patient will be observed overnight and will be discharged home tomorrow with precise followup instructions. Chino Rankin MD, [facility], [facility] Cardiac Electrophysiology Marisol RANKIN MD Aug 24, 2018 15:19
[2018-08-24] MEDS ORDERED: ONDANSETRON 4 MG/2 ML (SDV) Z0FRAN IVP PRN (15:30)
[2018-08-24] MEDS ORDERED: HYDROmorphone 2 MG/ML VIAL (DILAUDID) IV ONE (15:30)
[2018-08-24] MEDS ORDERED: meTOprolol 5 MG/5 ML (LOPRESSOR) VIAL ONE (15:58)
[2018-08-24] MEDS ORDERED: meTOprolol 5 MG/5 ML (LOPRESSOR) VIAL IV ONE (16:00)
--- NOTE | 2018-08-24 16:15 | NUR ---
Pt to [facility]. Report received form [facility].
--- NOTE | 2018-08-24 16:45 | NUR ---
Pt just arrived to ICU: Collections Representative support provided to who states she was so anxious about her 's procedure, she had vomiting and diarrhea last night. She said he was not anxious. Pt's expressed feeling relieved that the pt came through his procedure even though it will require follow up. per her request, I contacted Kartik Pardo for pastoral follow up. Also pt's pastor Hammond and elder Fareed from [facility] arrived to provide support.
[2018-08-24] MEDS: NS IV 1000 ML 1,000 ML IV SCH (19:35)
[2018-08-24] MEDS ORDERED: ACETAMINOPHEN 500 MG TAB (TYLENOL) PO PRN (20:15)
--- NOTE | 2018-08-24 20:45 | NUR ---
New order rec from Dr. Rankin to start Propafenone 225mg TID.
[2018-08-24] MEDS ORDERED: PROP225T2 PO (20:49)
[2018-08-24] MEDS: NON-FORMULARY MEDICATION 1 EA EA (Propafenone HCl 225 MG) PO SCH (21:06)
[2018-08-24] MEDS: APIXABAN 5 MG (ELIQUIS) TABLET PO SCH (21:06)
[2018-08-25] VITALS: BP 110/58
[2018-08-25 01:00] VITALS: BP 118/62
[2018-08-25] MEDS: NS IV 1000 ML 1,000 ML IV SCH (01:07)
[2018-08-25 02:00] VITALS: BP 99/62
[2018-08-25 03:53] LABS: MEAN PLATELET VOLUME 10.9 FL (7.4-10.4); RED CELL DISTRIBUTION WIDTH 14.3 % (10.0-14.5); WHITE BLOOD COUNT 12.6 10^3/uL (4.3-11.0)
[2018-08-25 04:00] VITALS: BP 105/73
[2018-08-25 04:28] LABS: BUN/CREATININE RATIO 14; CALCIUM 8.6 MG/DL (8.5-10.1); CARBON DIOXIDE 24 MMOL/L (21-32); CHLORIDE 103 MMOL/L (98-107); CREATININE SERUM 0.95 MG/DL (0.60-1.30); GFR ESTIMATED > 60; GLUCOSE 188 MG/DL (70-105); POTASSIUM 4.3 MMOL/L (3.6-5.0); SODIUM 139 MMOL/L (135-145)
[2018-08-25] MEDS: NON-FORMULARY MEDICATION 1 EA EA (Propafenone HCl 225 MG) PO SCH (06:04)
[2018-08-25] MEDS ORDERED: KCL 10 MEQ TAB (MICRO K) PO SCH (07:00)
[2018-08-25] MEDS ORDERED: PROPAFENONE 150 MG (RYTHMOL) TABLET PO SCH (07:04)
[2018-08-25 08:00] VITALS: BP 113/77
[2018-08-25] MEDS ORDERED: RT-ADVAIR HFA 115/21 MCG PER PUFF IH SCH (08:00)
[2018-08-25] MEDS: APIXABAN 5 MG (ELIQUIS) TABLET PO SCH (08:29)
--- NOTE | 2018-08-25 08:46 | Anesthesia-General Post-Op ---
General Patient Condition Mental Status/LOC: Same as Preop Cardiovascular: Satisfactory Nausea/Vomiting: Absent Respiratory: Satisfactory Pain: Controlled Complications: Absent Post Op Complications Complications None Follow Up Care/Instructions Patient Instructions None needed. Anesthesia/Patient Condition Patient Condition Patient is doing well, no complaints, stable vital signs, no apparent adverse anesthesia problems. No complications reported per nursing. SONIA BROWN CRNA Aug 25, 2018 08:46
[2018-08-25] MEDS ORDERED: FUROSEMIDE 40 MG (LASIX) TAB PO SCH (09:00)
[2018-08-25] MEDS ORDERED: DILTIAZEM 180 MG (CARDIZEM CD) CAP PO SCH (09:00)
--- NOTE | 2018-08-25 09:50 | NUR ---
PT. STATED HE WOULD LIKE TO TAKE HIS OWN MEDS WHEN HE GETS HOME.
--- NOTE | 2018-08-25 10:42 | Cardiology Discharge Summary ---
Diagnosis/Chief Complaint Date of Admission 08/24/2018 Date of Discharge 08/25/2018 Admission Diagnosis Typical atrial flutter Final/Discharge Diagnosis Successful typical atrial flutter ablation Chief Complaint/HPI Chief Complaint/HPI This is a 57-year-old gentleman who has significant shortness of breath, active smoking and COPD. He had atrial flutter with 2-1 AV block. He converted to sinus rhythm on amiodarone. He was started on Eliquis. Patient also had atrial fibrillation with rapid ventricular rate and was started on propafenone. Typical atrial flutter ablation was recommended. Discharge Summary Procedures Successful typical atrial flutter ablation. Discharge Physical Examination Stable. Hospital Course Was the Problem List Reviewed?: Yes Unremarkable. Pending Labs Discussion & Recommendations Discussion Discharge took over 30 minutes to complete, all discharge instructions were discussed at length with the patient. The procedure and the success rate was discussed. The patient will continue on outpatient medications for paroxysmal atrial fibrillation and follow-up in the office in the next 6-8 weeks. Follow up appt.: Dr. Rankin in 8 weeks. Dicharge Diet: Cardiac Diet Activity as Tolerated: Yes Home Medications Reviewed patient Home Medication Reconciliation performed by pharmacy medication reconciliations anaesthetic technician and/or nursing. Patients Allergies have been reviewed. Discharge Home Medications: Reviewed and agree with Discharge Medication list on patient's Discharge Instruction sheet Condition at discharge Stable. Instructions to patient/family Discussed at length with the family. Marisol RANKIN MD Aug 25, 2018 10:42
--- NOTE | 2018-08-25 10:43 | Discharge Inst-Post CATH ---
Discharge Inst-CATH/EP Post Cardiac Cath/EP D/C Inst Follow Up/Plan Dr Rankin in eight weeks. <b>CARDIAC CATH/EP PROCEDURE DISCHARGE INSTRUCTIONS</b> Cardiac Rehab Please be expecting a follow up call from Cardiac Rehab within in one week. ACTIVITY * Go Home directly and rest. * Limit activity of the leg (or wrist if it was used) for 7 days including aerobics, swimming, jogging, bicycling, etc. * Restrict stair-climbing for 7 days if possible, if not, climb up with your non -cath leg, then bring together on the same step. * Avoid lifting, pushing, pulling or excessive movement of the affected extremity for 7 days. * Customary sexual activity may be resumed after 2 days-use caution not to use a position that strains or causes pain to the affected extremity. * No driving for 24 hours. * NO SMOKING. * Avoid straining for bowel movements for 7 days. * Gentle walking on level ground is allowed. * Returning to work will depend on the type of procedure and the results. Your doctor will discuss this with you. CALL YOUR DOCTOR FOR ANY OF THE FOLLOWING: *If bleeding from the puncture site occurs- Apply gentle pressure to site with clean cloth and call your doctor or EMS. * If a knot or lump forms under the skin, increases in size, or causes pain. * If bruising appears to be worsening or moving further down your leg instead of disappearing. * Temperature above 101 F. CARE OF YOUR GROIN INCISION; * Bruising or purple discoloration of the skin near the puncture site is common. * You may shower only, no bathtub bathing for 5 days. Be careful to avoid slipping as your leg may feel stiff. * If a closure device was used on your femoral artery, please see the attached guide regarding care of the device and your leg. * Leave dressing on FOR 24 hours. CARE OF YOUR WRIST INCISION; * Bruising or purple discoloration of the skin near the puncture site is common. * You may shower. * DO NOT submerge wrist. * Leave dressing on FOR 24 hours. Marisol RANKIN MD Aug 25, 2018 10:43
[2018-08-25 11:53] VITALS: BP 113/77
== END 2018-08-25 11:30 | disposition home or self-care (01) ==
LOC: CATH 08:45 → ICU 16:30 → CATH 08-25 11:30
PROVIDERS: ATTEND Internal Medicine Interventional Cardiology
DX: I48.3 Typical atrial flutter (principal); J44.9 Chronic obstructive pulmonary disease, unspecified; I48.0 Paroxysmal atrial fibrillation; I10 Essential (primary) hypertension; I44.1 Atrioventricular block, second degree; F17.210 Nicotine dependence, cigarettes, uncomplicated; Z79.01 Long term (current) use of anticoagulants; G47.33 Obstructive sleep apnea (adult) (pediatric); Z99.81 Dependence on supplemental oxygen; Z79.899 Other long term (current) drug therapy
CPT/HCPCS: 36415; 80048; 80053; 85027; 85610; 85730; 87081; 93005; 93613; 93621; 93623; 93653; 93655

== ENCOUNTER 2018-10-27 07:46 | Outpatient (CLI) | payer MEDICAID ==
[~2018-10-27] VITALS: Ht 188 cm; Wt 119.4 kg
[~2018-10-27 07:46] MED LIST changes: +DILT180T9 PO; +POTA10CA43 PO; +PROP225T2 PO
[2018-10-27] MEDS ORDERED: METO-395 PO (08:12)
[2018-10-27 08:13] VITALS: BP 113/74
== END 2018-10-27 15:00 | disposition home or self-care (01) ==
LOC: PREOP 07:46
PROVIDERS: ATTEND Orthopaedic Surgery
DX: Z01.818 Encounter for other preprocedural examination (principal)
CPT/HCPCS: 87081

== ENCOUNTER 2018-11-04 07:52 | Day surgery (SDC) | payer MEDICAID ==
--- NOTE | 2018-10-26 11:43 | HISTORY AND PHYSICAL ---
DATE OF SERVICE: ADMISSION HISTORY AND PHYSICAL DATE OF ADMISSION: 11/04/2018. DATE OF SERVICE AND DATE OF SURGERY: 11/04/2018. This will be for outpatient surgery on 11/04/2018 for left knee arthroscopy. HISTORY OF PRESENT ILLNESS: The patient is a 58-year-old gentleman with several year history of progressively worsening left medial knee pain, catching, locking and swelling. This initially occurred following an injury in which his leg was caught over . He twisted and felt and heard a pop. He reports activity limitations because of the knee. He underwent an injection, which provided him excellent relief of symptoms. Due to functional impairment and failure to improve with conservative measures, the patient has elected to proceed with surgical intervention. REVIEW OF SYSTEMS: No chest pain, no shortness of breath. No dysuria. PAST MEDICAL HISTORY: Atrial fibrillation, COPD. PAST SURGICAL HISTORY: Ganglion cyst excision, cervical spine fusion. FAMILY HISTORY: Significant for ischemic heart disease. PRIMARY CARE PROVIDER: [facility]. MEDICATIONS: Sildenafil, Eliquis, Toprol, tramadol, Advair, propafenone, diltiazem, ProAir. ALLERGIES: NAPROSYN. SOCIAL HISTORY: The patient is a current every day smoker. Denies alcohol use. X-RAYS: Radiographs, which were nonweightbearing revealed mild degenerative changes of patellofemoral joint with patellar tendon proximal to its insertion site. PHYSICAL EXAMINATION: GENERAL: The patient is a well-developed, well-nourished, in no acute distress. HEENT: Normocephalic, atraumatic. Pupils are equal, round and reactive to light. Oropharynx is clear. NECK: Supple. No lymphadenopathy. LUNGS: Clear to auscultation bilaterally. HEART: Regular rate and rhythm. ABDOMEN: Soft, nontender, nondistended. EXTREMITIES: The left knee demonstrates moderate effusion. He has a markedly positive Willie's maneuver medially with tenderness along the medial joint line. There is no varus or valgus laxity. Negative anterior and posterior drawer. Range of motion is 0/0/130. The patient ambulates with an antalgic gait. He has negative straight leg raise. IMPRESSION: Left knee medial meniscus tear with chondromalacia. PLAN: Left knee arthroscopy with partial meniscectomy and chondroplasty. We discussed risks, benefits, options, ramifications and recovery. He understands and wishes to proceed. Job ID: [id number] DocumentID: [id number] Dictated Date: 10/26/2018 11:22:11 Grill Chef Date: 10/26/2018 11:42:35 Dictated By: TOM VELEZ MD
[~2018-11-04] VITALS: Ht 188 cm; Wt 119.4 kg
[2018-11-04] VITALS (11 sets, daily range): BP systolic 115–164; BP diastolic 74–97
[2018-11-04] MEDS ORDERED: SEVOFLURANE (ULTANE) 15 ML INHAL SOLN ONE ×2 (08:25→09:28)
[2018-11-04] MEDS ORDERED: ONDANSETRON 4 MG/2 ML (SDV) Z0FRAN ONE ×2 (08:25→09:14)
[2018-11-04] MEDS ORDERED: proPOfol 200 MG/20 ML (DIPRIVAN) VIAL IV ONE ×2 (08:25→09:14)
[2018-11-04] MEDS ORDERED: DEXAMETHASONE 10 MG/ML (DECADRON) 1 ML VIAL ONE ×2 (08:25→09:14)
[2018-11-04] MEDS ORDERED: LIDOCAINE PF 2% 5 ML (XYLOCAINE) VIAL ONE ×2 (08:25→09:14)
[2018-11-04] MEDS ORDERED: MIDAZOLAM 2 MG/2 ML (VERSED) VIAL ONE ×2 (08:26→09:15)
[2018-11-04] MEDS ORDERED: fentaNYL INJECTION 100 MCG/2 ML AMP ONE ×2 (08:26→09:14)
[2018-11-04] MEDS ORDERED: LACTATED RINGERS 1,000 ML IV PRN (08:43)
[2018-11-04] MEDS ORDERED: ceFAZolin INJECTION 1,000 MG in WATER (STERILE) FOR INJECTION 10 ML IV ONE (08:45)
[2018-11-04] MEDS ORDERED: ceFAZolin INJECTION 1,000 MG ONE (08:48)
--- NOTE | 2018-11-04 09:18 | Progress Note-Pre Operative ---
Pre-Operative Progress Note H&P Reviewed The H&P was reviewed, patient examined and no changes noted. Date Seen by Provider: Nov 04, 2018 Time Seen by Provider: :18 Date H&P Reviewed: Nov 04, 2018 Time H&P Reviewed: :18 Pre-Operative Diagnosis: left knee medial meniscus tear and chondromalacia TOM VELEZ MD Nov 04, 2018 09:18
--- NOTE | 2018-11-04 09:19 | Progress Note-Post Operative ---
Post-Operative Progess Note Surgeon (s)/High School Principal (s) Surgeon TOM VELEZ MD High School Principal: Danyel Westbrook Pre-Operative Diagnosis left knee medial meniscus tear and chondromalacia Post-Operative Diagnosis left knee medial meniscus tear and chondromalacia of the medial femoral condyle and patella Procedure & Operative Findings Date of Procedure 11/04/18 Procedure Performed/Findings left knee arthroscopic partial medial meniscectomy and chondroplasty of the medial femoral condyle, and patella Anesthesia Type GETA Estimated Blood Loss Estimated blood loss (mL): minimal Specimens/Packing Specimens Removed none Packing: none TOM VELEZ MD Nov 04, 2018 09:19
[2018-11-04] MEDS ORDERED: HYDROcodone/APAP 7.5 MG/325 MG (LORTAB, LORCET PLUS) TABLET PO PRN (09:30)
[2018-11-04] MEDS ORDERED: BUPIVACAINE 0.25% 30 ML (SENSORCAINE) VIAL ONE (10:13)
[2018-11-04] MEDS ORDERED: morphine PF (DURAMORPH) 10 MG/10 ML AMP ONE (10:13)
[2018-11-04] MEDS ORDERED: HYDROmorphone 2 MG/ML VIAL (DILAUDID) IV ONE (10:45)
[2018-11-04] MEDS ORDERED: ONDANSETRON 4 MG/2 ML (SDV) Z0FRAN IVP PRN (10:45)
[2018-11-04] MEDS ORDERED: HYDR-3816 PO (11:43)
--- NOTE | 2018-11-04 12:44 | Anesthesia-General Post-Op ---
General Patient Condition Mental Status/LOC: Same as Preop Cardiovascular: Satisfactory Nausea/Vomiting: Absent Respiratory: Satisfactory Pain: Controlled Complications: Absent Post Op Complications Complications None Follow Up Care/Instructions Patient Instructions None needed. Anesthesia/Patient Condition Patient Condition Patient is doing well, no complaints, stable vital signs, no apparent adverse anesthesia problems. No complications reported per nursing. ANDRÉS HARRINGTON CRNA Nov 04, 2018 12:44
--- NOTE | 2018-11-04 12:48 | Physical Therapy Ortho Eval ---
PT Orthopedic Evaluation Type of Surgery Knee Scope (left) Prior Level of Function Current Living Status: Spouse Locomotion (Upon Admit): Independent Established Durable Medical Eq: Quad Cane Pt does not have a walker or crutches but has a quad cane He wants to try using a quad cane at home Subjective Subjective Agrees to PT. Upon evaluation and trial gait, pt reprots he feels he will be able to use a quad cane at home. He reports he will contact his PCP if the QC is not sufficient. Entry Into Home: Stairs Without Railing (2) Motor Control Motor Control: Motor Control WNL ROM ROM: WFL Strength Strength: WFL Transfer Transfers (B, C, W/C) (FIM): 5 (mod indep post evaluation) Gait Pt trained in ambulation with a FWW and a cane like device to simulate gait with a QC. He is safe walking with both devices and demonstrated no LOB episodes. Gait training on level surfaces as well as a step. He is able to complete both safely Right Lower Extremity: Right Weight Bearing Status RLE: Full Weight Bearing Left Lower Extremity: Left Weight Bearing Status LLE: Weight Bearing/Tolerated Gait (FIM): 5 (6 post treatment) Distance (FIM): 3=150 ft Summary/Comments Safe gait with a single point AD to simulate use of a QC for gait. Treatment Rendered Treatment: Therapeutic Exercises, Gait Train, Step Train Exercise Instruction: Quad Sets, Straight Leg Raise, Heel Slides Assessment/Goals Goal Time Frame: 1 Visit Understands HEP: Yes Safe Ambulation: Yes Pt voiced that he prefers not to use a walker at this time. Explained benefits of the walker to the patient and possible need for use. He reported he would contact Sunni Tavera (NAKITA) for a script for a FWW if he felt it was necessry. Plan Treatment Plan: Discharge Time Time In: 1205 Time Out: 1230 Total Billed Treatment Time: 25 Billed Treatment Time visit ZAK JAQUEZ PT Nov 04, 2018 12:48
--- NOTE | 2018-11-04 14:24 | OPERATIVE REPORT ---
DATE OF SERVICE: 11/04/2018 PREOPERATIVE DIAGNOSES: 1. Left knee medial meniscus tear. 2. Left knee chondromalacia of the medial femoral condyle. 3. Left knee chondromalacia of patella. POSTOPERATIVE DIAGNOSES: 1. Left knee medial meniscus tear. 2. Left knee chondromalacia of the medial femoral condyle. 3. Left knee chondromalacia of patella. PROCEDURES: 1. Left knee arthroscopic partial medial meniscectomy. 2. Left knee arthroscopic chondroplasty of the medial femoral condyle. 3. Left knee arthroscopic chondroplasty of the patella. SURGEON: Basilio Velez MD TRAMPOLINE TEAM COACH: Danyel Westbrook, who assisted throughout the procedure and closed the incisions. ANESTHESIA: General endotracheal by Jhon Castellanos. TOURNIQUET TIME: Is not applicable. ESTIMATED BLOOD LOSS: Minimal. DRAINS: None. COMPLICATIONS: None. POSTOPERATIVE PLAN: Routine arthroscopy protocol. The patient was transferred to the recovery room awake and in stable condition. STATEMENT OF MEDICAL NECESSITY: The patient is a 58-year-old gentleman with complaints of left medial knee pain, catching, locking and swelling. He was tender along his medial joint line and pain medially with Willie. He also had patellofemoral crepitus and pain with patellar loading. It is felt that he likely had medial meniscus tear with associated chondromalacia of his medial and patellofemoral compartments. Due to functional impairment and failure to improve with conservative measures, the patient elected to proceed with surgical intervention. Examination under anesthesia revealed range of motion 0/0/130 with negative Rajinder, negative anterior and posterior drawer. No varus valgus laxity with a negative pivot shift. Arthroscopic findings, the medial facet of the patella demonstrated grade II chondral flaps in a 10 x 10 area. The trochlea demonstrated grade I chondral softening with no unstable chondral flaps. The medial and lateral gutters were clear. The ACL and PCL were intact. Lateral compartment demonstrated grade I chondral softening throughout the tibial plateau with no unstable chondral flaps. The meniscus was intact. The medial compartment demonstrated a flap tear of the body of the medial meniscus involving approximately 10% of the body. In addition, there were grade III chondral flaps and a 20 x 30 area with the central portion of the femoral condyle. DESCRIPTION OF PROCEDURE: After risks and benefits of procedure were discussed and questions were answered and informed consent was signed and placed on the chart, the operative site was confirmed in the preoperative holding area initialed by the surgeon. The patient was then transferred to the operating room. After adequate levels of general endotracheal anesthetic were obtained, a timeout was called confirming the operative site. The left lower extremity was prepped and draped in the usual sterile fashion. The knee joint was injected with 60 mL of fluid. A standard inferolateral portal was placed for the arthroscope under direct visualization and inferior medial portal was created. A diagnostic arthroscopy was carried out with the above findings noted. The unstable chondral flaps on the patella were debrided with a shaver back to a stable edge. The scope was redirected into the medial compartment. The unstable chondral flaps of the medial femoral condyle were debrided with a shaver back to stable edge and the medial meniscus tear was debrided with a shaver back to a stable edge. This was carefully probed with no further tearing or instability noted. The knee was copiously irrigated. The port sites were closed with 4-0 nylon in simple interrupted fashion. The knee joint was injected with Duramorph. The portal sites were infiltrated with plain Marcaine. A soft dressing was applied and the patient was transferred to the recovery room awake and in stable condition. Job ID: [id number] DocumentID: [id number] Dictated Date: 11/04/2018 10:40:29 Community Affairs Director Date: 11/04/2018 14:23:38 Dictated By: BASILIO VELEZ MD
== END 2018-11-04 12:38 | disposition home or self-care (01) ==
LOC: SDC 07:52
PROVIDERS: ATTEND Orthopaedic Surgery
DX: M23.204 Derangement of unspecified medial meniscus due to old tear or injury, left knee (principal); M22.42 Chondromalacia patellae, left knee; I48.91 Unspecified atrial fibrillation; J44.9 Chronic obstructive pulmonary disease, unspecified; I10 Essential (primary) hypertension; I48.92 Unspecified atrial flutter; G47.33 Obstructive sleep apnea (adult) (pediatric); F17.210 Nicotine dependence, cigarettes, uncomplicated; Z98.1 Arthrodesis status; Z82.49 Family history of ischemic heart disease and other diseases of the circulatory system; Z79.899 Other long term (current) drug therapy; Z79.01 Long term (current) use of anticoagulants; Z99.81 Dependence on supplemental oxygen

== ENCOUNTER → 2019-09-15 | Outpatient (CLI) | payer MEDICAID ==
[~2019-09-15] MED LIST changes: -DIGO250T PO; +DIGO250T3 PO; +DILT-28 PO; -DILT180C90 PO; +HYDR-34 PO; -METO-395 PO; +MTP100TCR PO; +PROP150T PO; -PROP150T2 PO
--- NOTE | 2019-09-15 13:30 | Diagnostic Imaging Report ---
INDICATION: Screening for lung cancer, 41 pack year history of smoking, has not quit smoking. TECHNIQUE: Multiple contiguous axial CT images were obtained through the chest without the use of intravenous contrast dated 09/15/2019. Sagittal and coronal reformatted images were reviewed. Low-dose screening protocol was used. Auto Exposure Controls were utilized during the CT exam to meet ALARA standards for radiation dose reduction. COMPARISON: 08/19/2018 and 10/23/2017. FINDINGS: No definite adenopathy within the chest although evaluation is slightly limited secondary to lack of intravenous contrast. Mild scattered vascular calcifications. No aneurysmal dilatation of the thoracic aorta. The heart is within normal limits in size. No pericardial effusion. No pleural effusion. Stable elevation of the left hemidiaphragm. A few calcified mediastinal and hilar lymph nodes are again noted. No pneumothorax. Moderate background centrilobular emphysematous changes are again noted. Calcified granuloma within the right midlung. Reticular opacities related to mild background interstitial lung disease are again noted. Bibasilar scarring and/or atelectasis is again noted. No new pulmonary nodules or opacities. The trachea is patent. The minimally visualized upper abdomen is unremarkable. Scattered osseous degenerative changes without acute osseous abnormality. IMPRESSION: Background fibroemphysematous changes without suspicious pulmonary nodule or opacity. Evidence of chronic granulomatous disease. Additional findings as described above. Lung RADS category 1S: Negative Modifier: S: Moderate background fibroemphysematous changes. Followup: Continued annual screening with low-dose CT of the chest is recommended in 12 months. Dictated by: Dictated on workstation # [id number]
== END ==
LOC: RAD 10:51
PROVIDERS: ATTEND Nurse Practitioner Family
DX: Z12.2 Encounter for screening for malignant neoplasm of respiratory organs (principal); F17.200 Nicotine dependence, unspecified, uncomplicated

== ENCOUNTER → 2020-10-03 | Outpatient (CLI) | payer MEDICAID ==
[~2020-10-03] MED LIST changes: +RT-ALBUTEROL SULF 2.5 MG/3 ML PRE-MIX VIAL INH ONE
== END ==
LOC: RT 11:41
PROVIDERS: ATTEND Nurse Practitioner Family
DX: Z12.2 Encounter for screening for malignant neoplasm of respiratory organs (principal); J44.9 Chronic obstructive pulmonary disease, unspecified; F17.210 Nicotine dependence, cigarettes, uncomplicated
CPT/HCPCS: 94060; 94726; 94729

== ENCOUNTER 2021-01-25 06:31 | Inpatient (IN) | payer MEDICAID ==
[~2021-01-25] VITALS: Ht 188 cm; Wt 119.4 kg
[~2021-01-25 06:31] MED LIST changes: -RT-ALBUTEROL SULF 2.5 MG/3 ML PRE-MIX VIAL INH ONE
[2021-01-25] MEDS ORDERED: proPOfol 200 MG/20 ML (DIPRIVAN) VIAL IV ONE (06:42)
[2021-01-25 06:53] LABS: BASOPHILS # (AUTO) 0.1 10^3/uL (0.0-0.1); BASOPHILS % (AUTO) 0 % (0-10); EOSINOPHILS % (AUTO) 0 % (0-10); HEMATOCRIT 50 % (40-54); HEMOGLOBIN 14.3 g/dL (13.3-17.7); LYMPHOCYTES # (AUTO) 1.5 10^3/uL (1.0-4.0); LYMPHOCYTES % (AUTO) 10 % (12-44); MEAN CORPUSCULAR HEMOGLOBIN 28 pg (25-34); MEAN CORPUSCULAR HGB CONC 29 g/dL (32-36); MEAN CORPUSCULAR VOLUME 97 fL (80-99); MEAN PLATELET VOLUME 11.3 fL (9.0-12.2); MONOCYTES # (AUTO) 1.6 10^3/uL (0.0-1.0); MONOCYTES % (AUTO) 11 % (0-12); NEUTROPHILS # (AUTO) 12.1 10^3/uL (1.8-7.8); NEUTROPHILS % (AUTO) 79 % (42-75); PLATELET COUNT 175 10^3/uL (130-400); WHITE BLOOD COUNT 15.4 10^3/uL (4.3-11.0)
[2021-01-25] MEDS ORDERED: LACTATED RINGERS 1,000 ML IV ONE ×2 (07:00→09:41)
[2021-01-25 07:04] LABS: ALBUMIN 3.9 GM/DL (3.2-4.5); CHLORIDE 95 MMOL/L (98-107); POTASSIUM 5.2 MMOL/L (3.6-5.0); SODIUM 142 MMOL/L (135-145)
[2021-01-25 07:05] LABS: CALCIUM 8.9 MG/DL (8.5-10.1)
[2021-01-25 07:06] LABS: GLUCOSE 200 MG/DL (70-105)
[2021-01-25 07:07] LABS: TOTAL PROTEIN 7.6 GM/DL (6.4-8.2)
[2021-01-25 07:08] LABS: BILIRUBIN,TOTAL 0.9 MG/DL (0.1-1.0); CARBON DIOXIDE 36 MMOL/L (21-32)
[2021-01-25 07:10] LABS: ALKALINE PHOSPHATASE 76 U/L (40-136); CREATININE SERUM 1.04 MG/DL (0.60-1.30); GFR ESTIMATED 72
[2021-01-25 07:11] LABS: BUN/CREATININE RATIO 15
[2021-01-25 07:13] LABS: ALANINE AMINOTRANSFERASE 14 U/L (0-55)
[2021-01-25] MEDS: PROPOFOL DRIP (ICU) 100 ML IV SCH ×4 (07:14→13:50)
[2021-01-25 07:16] LABS: CLARITY,URINE CLEAR; COLOR,URINE ORANGE; GLUCOSE, URINE (UA) NEGATIVE (NEGATIVE); KETONES,URINE 1+ (NEGATIVE); LEUKOCYTE ESTERASE ,URINE NEGATIVE (NEGATIVE); NITRITE,URINE NEGATIVE (NEGATIVE); PROTEIN,URINE 3+ (NEGATIVE)
[2021-01-25 07:26] LABS: ABG BASE EXCESS 13.6 MMOL/L (-2.5-2.5); ABG OXYGEN SATURATION 99 % (94-100); ABG PO2 254 MMHG (79-93)
[2021-01-25 07:34] LABS: ALLENS TEST YES-POS; INSPIRED O2 100%; PATIENT TEMP 36.8; VENTILATOR YES
[2021-01-25 07:36] LABS: ABG PCO2 94 MMHG (35-45); ABG PH 7.26 (7.37-7.43)
[2021-01-25 07:40] LABS: BACTERIA,URINE TRACE /HPF; BILIRUBIN,URINE 2+ (NEGATIVE); RBC,URINE RARE /HPF; SQUAMOUS EPITHELIAL CELL,UR RARE /HPF
[2021-01-25] MEDS ORDERED: NS IV 1000 ML 1,000 ML IV SCH (07:45)
[2021-01-25] MEDS: dilTIAZem DRIP PRE-MIX 125 ML IV SCH (07:46)
[2021-01-25 07:56] LABS: BAND NEUTROPHILS 5 %; BASOPHILS % (MANUAL) 0 %; EOSINOPHILS % (MANUAL) 0 %; LYMPHOCYTES % (MANUAL) 10 %; MONOCYTES % (MANUAL) 14 %; NEUTROPHILS % (MANUAL) 71 %
[2021-01-25 07:57] LABS: ANISOCYTOSIS SLIGHT
[2021-01-25 07:57] LABS: FIBRIN DEGRADATION PRODUCTS 2.4 UG/ML (0.00-0.49); INR 1.2 (0.8-1.4); PROTHROMBIN TIME PATIENT 15.3 SEC (12.2-14.7)
[2021-01-25] MEDS ORDERED: CEFEPIME INJECTION 1,000 MG in WATER (STERILE) FOR INJECTION 10 ML IV ONE (08:15)
--- NOTE | 2021-01-25 08:16 | Diagnostic Imaging Report ---
INDICATION: Respiratory distress, sepsis COMPARISON: 08/09 FINDINGS: ET tube mid trachea. OG in the stomach. Right IJ at the mid SVC. There are patchy bilateral infiltrates greater right. Heart size upper limits. There is borderline vascular congestion. IMPRESSION: Support apparatus in good alignment. No pneumothorax. Bilateral infiltrates present with upper limits heart size and venous caliber. Dictated by: Dictated on workstation # [id number]
[2021-01-25] MEDS ORDERED: PROPOFOL DRIP (ICU) 100 ML IV ONE (08:19)
--- NOTE | 2021-01-25 08:27 | ED General ---
General Chief Complaint: Unresponsive Stated Complaint: SOB,AMS Nursing Triage Note: PT PRESENTS TO THE ED VIA EMS TO ROOM, FAMILY STATE THAT THE PATIENT HAS BEEN INCREASINGLY SLEEPY FOR TWO DAYS, HAS A KNOWN COPD AND CARDIAC HX. TODAY FAMILY WAS UNABLE TO ROUSE THE PATIENT SO THEY CONTACTED EMS. PT WAS IN THE 80'S ON ROOM AIR ON ARRIVAL FOR EMS. PT COMPLETLEY UNRESPONSIVE ON EMS ARRIVAL Source of Information: Patient Exam Limitations: No Limitations History of Present Illness Date Seen by Provider: Jan 25, 2021 Time Seen by Provider: 06:35 Initial Comments Here by EMS from home with report of altered mental status. reports the patient was increasingly drowsy yesterday and then she was unable to wake him this morning. Does have history of COPD and atrial fibrillation and apparently is on blood thinners. Follows with [facility]. Has been vaccinated with 2 doses of vaccine. Patient unresponsive and unable to give details. No report of vomiting, chest pains or diarrhea. reports that she found him this morning in bed with his pants down and he had urinated on himself. No report of injury. EMS reports initial heart rate 1 80-200 and atrial fibrillation. Timing/Duration: 1-2 Days, Getting Worse Severity: Severe Associated Systoms: No Chest Pain, No Nausea/Vomiting; Weakness Allergies and Home Medications Allergies Coded Allergies: gabapentin (Verified Adverse Reaction, Mild, UPSET STOMACH, 10/27/18) naproxen (Verified Adverse Reaction, Mild, GI UPSET, 10/27/18) Patient Home Medication List Home Medication List Reviewed: Yes Albuterol Sulfate (Proair Hfa) 1 Puff Puff, 2 PUFF IH Q4H PRN for SHORTNESS OF BREATH, (Reported) Entered as Reported by: CLARIBEL SHIN on 07/17/17 1022 Apixaban (Eliquis) 5 Mg Tablet, 5 MG PO BID, (Reported) Entered as Reported by: CLARIBEL SHIN on 07/25/17 1527 Diltiazem HCl (Diltiazem ER) 180 Mg Tab.er.24h, 180 MG PO DAILY, (Reported) Entered as Reported by: SHAZIA ALICEA on 08/24/18 1021 Fluticasone/Vilanterol (Breo Ellipta 100-25 Mcg INH) 1 Each Blst.w.dev, 1 EACH IH DAILY, (Reported) Entered as Reported by: SHAZIA ALICEA on 08/24/18 1021 Furosemide (Furosemide) 40 Mg Tablet, 40 MG PO DAILY, (Reported) Entered as Reported by: ALMA MELO on 07/16/18 1323 Hydrocodone Bit/Acetaminophen (HYDROcodone/APAP 7.5/325 TAB) 1 Each Tablet, 1 TAB PO Q4H Prescribed by: MATT SEAY on 11/04/18 1143 Metoprolol Succinate (Metoprolol Succinate) 100 Mg Tab.er.24h, 50 MG PO DAILY, (Reported) Entered as Reported by: ALMA MELO on 10/27/18 0812 Potassium Chloride (Potassium Chloride) 10 Meq Capsule.er, 10 MEQ PO BID, (Reported) Entered as Reported by: SHAZIA ALICEA on 08/24/18 1021 Propafenone HCl (Propafenone HCl) 225 Mg Tablet, 225 MG PO TID, (Reported) Entered as Reported by: TENISHA SALDIVAR on 08/24/182048 Review of Systems Review of Systems Constitutional: No chills, No fever; weakness Cardiovascular: No chest pain; edema Genitourinary: incontinence Psychiatric/Neurological: See HPI Unable to complete review of systems due to altered mental status Past Meyxiei-Kyeleh-Gfummg Hx Patient Social History Tobacco Use?: No Smoking Status: Unknown if Ever Smoked Use of E-Cig and/or Vaping Gabo: Unknown if Ever Used Substance use?: Unable to obtain Alcohol Use?: Unable to obtain Immunizations Up To Date Tetanus Booster (TDap): Unknown Seasonal Allergies Seasonal Allergies: Yes Past Medical History Surgeries: Yes (GANGLION CYST, NECK FUSION, CARDIAC ABLATION) Respiratory: Yes (O2 3L CONT) Sleep Apnea, COPD Currently Using CPAP: No Currently Using BIPAP: Yes Cardiac: Yes (AFLUTTER) Hypertension Neurological: No Reproductive Disorders: No Sexually Transmitted Disease: No HIV/AIDS: No Genitourinary: No Gastrointestinal: Yes Musculoskeletal: No Endocrine: No HEENT: Yes (GLASSES) Cataract Loss of Vision: Bilateral Cancer: No Psychosocial: No Integumentary: No Blood Disorders: No Adverse Reaction/Blood Tranf: No (N/A) Family Medical History Reviewed Nursing Family Hx Heart Disease, Cancer, CAD Under 55 Years Old Physical Exam-Suspected Sepsis Physical Exam Vital Signs Vital Signs - First Documented 01/25/21 01/25/21 06:35 07:15 Temp 37.0 Pulse 161 Resp 21 B/P (MAP) 143/118 (126) Pulse Ox 96 O2 Delivery NIV Bilevel FiO2 70 Capillary Refill : Less Than 3 Seconds Blood Pressure Mean: 126 Height, Weight, BMI Height: 6'2.00" Weight: 263lbs. 3.0oz. 119.760279jm; 41.00 BMI Method:Stated General Appearance: Moderate Distress, Obese HEENT: PERRL/EOMI, Pharynx Normal Neck: Non Tender, Supple Respiratory: Decreased Breath Sounds, Other (On BiPAP and then on vent) Cardiovascular: No Murmur, Tachycardia Gastrointestinal: Non Tender, Soft Back: Normal Inspection, No Vertebral Tenderness Extremity: Pedal Edema (4+ to level above knees bilateral.), Other (Venous stasis changes noted to bilateral lower extremities) Neurologic/Psychiatric: Other (Unresponsive on arrival with occasional moaning. Later noted to react to endotracheal tube with chewing and slightly moving bilateral upper extremities.) Skin: other (Skin breakdown in area of groin and pannus folds with erythema and) Focused Exam Lactate Level 01/25/21 07:26: Lactic Acid Level 2.90*H Lactic Acid Level Laboratory Tests Test 01/25/21 07:26 Lactic Acid Level 2.90 MMOL/L (0.50-2.00) *H Procedures/Interventions Lumen: triple Central Line Procedure: betadine prep, sterile drapes applied, sterile dressing applied Position: internal jugular (R) Complications: none Post Position: sutured, good blood return, position confirmed w/ CXR Central line placed via ultrasound guidance using Seldinger technique without difficulty or complications. 1 stick. Good blood return. Date of ETT Placement: Jan 25, 2021 Time of ETT Placement: 0700 Tube Size: 8.00 Medications: Etomidate (20 mg), Succinylcholine (200 mg) Positive End Tide CO2: Yes (87 initially) Breath Sounds after Intubation: bilateral-equal Intubation Complications: no complications Post Intubation Xray: Yes Tube in good position Progress/Results/Core Measures Suspected Sepsis SIRS Temperature: Pulse: 109 Respiratory Rate: 20 Laboratory Tests 01/25/21 06:46: White Blood Count 15.4H Blood Pressure 143 /118 Mean: 126 01/25/21 07:26: Lactic Acid Level 2.90*H Laboratory Tests 01/25/21 06:46: Creatinine 1.04, Platelet Count 175, Total Bilirubin 0.9 01/25/21 07:20: INR Comment 1.2 Results/Orders Lab Results Laboratory Tests Test 01/25/21 06:46 01/25/21 07:00 01/25/21 07:08 01/25/21 07:10 Range/Units White Blood Count 15.4 H 4.3-11.0 10^3/uL Red Blood Count 5.20 4.30-5.52 10^6/uL Hemoglobin 14.3 13.3-17.7 g/dL Hematocrit 50 40-54 % Mean Corpuscular Volume 97 80-99 fL Mean Corpuscular Hemoglobin 28 25-34 pg Mean Corpuscular Hemoglobin Concent 29 L 32-36 g/dL Red Cell Distribution Width 14.9 H 10.0-14.5 % Platelet Count 175 130-400 10^3/uL Mean Platelet Volume 11.3 9.0-12.2 fL Immature Granulocyte % (Auto) 1 % Neutrophils (%) (Auto) 79 H 42-75 % Lymphocytes (%) (Auto) 10 L 12-44 % Monocytes (%) (Auto) 11 0-12 % Eosinophils (%) (Auto) 0 0-10 % Basophils (%) (Auto) 0 0-10 % Neutrophils # (Auto) 12.1 H 1.8-7.8 10^3/uL Lymphocytes # (Auto) 1.5 1.0-4.0 10^3/uL Monocytes # (Auto) 1.6 H 0.0-1.0 10^3/uL Eosinophils # (Auto) 0.0 0.0-0.3 10^3/uL Basophils # (Auto) 0.1 0.0-0.1 10^3/uL Immature Granulocyte # (Auto) 0.1 0.0-0.1 10^3/uL Neutrophils % (Manual) 71 % Lymphocytes % (Manual) 10 % Monocytes % (Manual) 14 % Eosinophils % (Manual) 0 % Basophils % (Manual) 0 % Band Neutrophils 5 % Anisocytosis SLIGHT Sodium Level 142 135-145 MMOL/L Potassium Level 5.2 H 3.6-5.0 MMOL/L Chloride Level 95 L 98-107 MMOL/L Carbon Dioxide Level 36 H 21-32 MMOL/L Anion Gap 11 5-14 MMOL/L Blood Urea Nitrogen 16 7-18 MG/DL Creatinine 1.04 0.60-1.30 MG/DL Estimat Glomerular Filtration Rate 72 BUN/Creatinine Ratio 15 Glucose Level 200 H 70-105 MG/DL Calcium Level 8.9 8.5-10.1 MG/DL Corrected Calcium 9.0 8.5-10.1 MG/DL Total Bilirubin 0.9 0.1-1.0 MG/DL Aspartate Amino Transf (AST/SGOT) 17 5-34 U/L Alanine Aminotransferase (ALT/SGPT) 14 0-55 U/L Alkaline Phosphatase 76 40-136 U/L Troponin I < 0.028 <0.028 NG/ML C-Reactive Protein High Sensitivity 5.51 H 0.00-0.50 MG/DL B-Type Natriuretic Peptide 159.0 H <100.0 PG/ML Total Protein 7.6 6.4-8.2 GM/DL Albumin 3.9 3.2-4.5 GM/DL Influenza Type A (RT-PCR) Not Detected Not Detecte Influenza Type B (RT-PCR) Not Detected Not Detecte SARS-CoV-2 RNA (RT-PCR) Not Detected Not Detecte Blood Gas Puncture Site RR Blood Gas Patient Temperature 36.8 Arterial Blood pH 7.26 *L 7.37-7.43 Arterial Blood Partial Pressure CO2 94 *H 35-45 MMHG Arterial Blood Partial Pressure O2 254 H 79-93 MMHG Arterial Blood HCO3 41 *H 23-27 MMOL/L Arterial Blood Total CO2 44.0 *H 21.0-31.0 MMOL/L Arterial Blood Oxygen Saturation 99 94-100 % Arterial Blood Base Excess 13.6 H -2.5-2.5 MMOL/L Jair Test YES-POS Blood Gas Ventilator Setting YES Blood Gas Inspired Oxygen 100% Urine Color ORANGE Urine Clarity CLEAR Urine pH 6.0 5-9 Urine Specific [place] >=1.030 1.016-1.022 Urine Protein 3+ H NEGATIVE Urine Glucose (UA) NEGATIVE NEGATIVE Urine Ketones 1+ H NEGATIVE Urine Nitrite NEGATIVE NEGATIVE Urine Bilirubin 2+ H NEGATIVE Urine Urobilinogen 2.0 < = 1.0 MG/DL Urine Leukocyte Esterase NEGATIVE NEGATIVE Urine RBC (Auto) 1+ H NEGATIVE Urine RBC RARE /HPF Urine WBC NONE /HPF Urine Squamous Epithelial Cells RARE /HPF Urine Crystals NONE /LPF Urine Bacteria TRACE /HPF Urine Casts PRESENT /LPF Urine Hyaline Casts 2-5 H /LPF Urine Mucus SMALL H /LPF Urine Culture Indicated CULTURE PENDING Test 01/25/21 07:20 01/25/21 07:26 Range/Units Prothrombin Time 15.3 H 12.2-14.7 SEC INR Comment 1.2 0.8-1.4 Activated Partial Thromboplast Time 29 24-35 SEC D-Dimer 2.40 H 0.00-0.49 UG/ML Lactic Acid Level 2.90 *H 0.50-2.00 MMOL/L My Orders Orders - MARY CLEVELAND MD Propofol Injection (Diprivan Injection) (01/25/21 06:42) Cbc With Automated Diff (01/25/21 06:44) Comprehensive Metabolic Panel (01/25/21 06:44) Blood Culture (01/25/21 06:44) Sputum Culture (01/25/21 06:44) Urinalysis (01/25/21 06:44) Urine Culture (01/25/21 06:44) Protime With Inr (01/25/21 06:44) Partial Thromboplastin Time (01/25/21 06:44) Chest 1 View, Ap/Pa Only (01/25/21 06:44) Ed Iv/Invasive Line Start (01/25/21 06:44) Ed Iv/Invasive Line Start (01/25/21 06:44) Ekg Tracing (01/25/21 06:44) Troponin I (01/25/21 06:44) Vital Signs Adult Sepsis Patie Q15M (01/25/21 06:44) O2 (01/25/21 06:44) Remove Rings In Anticipation O (01/25/21 06:44) Lactic Acid Analyzer (01/25/21 06:44) BNP (01/25/21 06:44) Hs C Reactive Protein (01/25/21 06:44) Fibrin Degradation Products (01/25/21 06:44) Catheter(Urinary) Insert & Ass 03,15 (01/25/21 06:44) Ng Tube Insert & Assessment (01/25/21 06:44) Arterial Blood Gas (01/25/21 06:47) Diltiazem Injection (Cardizem Injection) (01/25/21 07:00) Diltiazem Drip Pre-Mix (Cardizem Drip Pr (01/25/21 07:00) Lactated Ringers (Lr 1000 Ml Iv Solution (01/25/21 07:00) Manual Differential (01/25/21 06:46) Covid 19 Inhouse Test (01/25/21 07:03) Influenza A And B By Pcr (01/25/21 07:00) Ed Iv/Invasive Line Start (01/25/21 07:44) Ns Iv 1000 Ml (Sodium Chloride 0.9%) (01/25/21 07:45) Cefepime Injection (Maxipime Injection) (01/25/21 08:15) Propofol Drip (Icu) (Diprivan Drip (Icu) (01/25/21 08:19) Propofol Drip 100ml (01/25/21 08:45) Sedation Communication Q48H (01/25/21 08:32) Triglycerides (01/25/21 08:32) Medications Given in ED Current Medications Medications Dose Ordered Sig/Mary Route Start Time Stop Time Status Last Admin Dose Admin Cefepime HCl 1000 mg/Sterile Water 10 ml @ 200 mls/hr ONCE ONCE IV 01/25/21 08:15 01/25/21 08:17 DC 01/25/21 08:16 200 MLS/HR Propofol 200 mg STK-MED ONCE IV 01/25/21 06:42 01/25/21 06:44 DC 01/25/21 07:11 50 MG Vital Signs/I&O 01/25/21 01/25/21 01/25/21 06:35 06:35 07:15 Temp 37.0 Pulse 161 109 Resp 21 20 B/P (MAP) 143/118 (126) Pulse Ox 96 98 O2 Delivery NIV Bilevel NIV Bilevel FiO2 70 Capillary Refill : Less Than 3 Seconds Blood Pressure Mean: 126 Progress Note : Progress Note Seen and evaluated on arrival by EMS. Patient on BiPAP. This was changed to our BiPAP machine and initial assessment ensued. Patient remains obtunded. Concerns about airway protection due to unresponsiveness. Elected for emergent intubation followed by central line placement. This was accomplished. LR 1 L bolus ordered. Sepsis protocol initiated. LR switched to normal saline. We did give Versed 5 mg IV and fentanyl 50 mcg IV after intubation. Rocuronium 50 mg IV given as patient started to have some movements. Initial end-tidal CO2 after being placed on the vent was 87 and this slowly improved. Initial vent settings rate of 20 with tidal volume of 450 and PEEP of 5 on 100% FiO2. This will be titrated. Orders for NG tube, Cash catheter added. EKG ordered and reviewed. Chest x-ray ordered and reviewed. I did review previous history and did find patient has history of atrial fibrillation/flutter and is on Eliquis. I did speak with the concerning history and she was able to tell that he has had increasing weakness over the past 36 hours and she found him this morning lying in bed with his pants down and incontinent of urine. Does have hi story of COPD with exacerbation as well as atrial fibrillation. Initial heart rate on arrival was 180-200. I did initially order Cardizem bolus and drip but this was held as patient's heart rate improved after intubation to normal sinus rhythm with a rate of 80s to 100 on the regulatory affairs internship. This was verified by EKG. All labs were reviewed and chest x-ray reviewed. Concerns for bilateral infiltrates. Covid and influenza testing are negative. Likely bilateral pneumonia. Cefepime 1 g IV initiated. I did discuss the case with Dr. Recio, on-call for [facility] and she accepts patient for admission to the ICU. I did discuss the case with [facility] on-call physician for ICU coverage and reviewed case as well. Admit, inpatient status, critical condition. Patient's informed of current findings and plan and agrees with the plan. ECG Initial ECG Impression Date: Jan 25, 2021 Initial ECG Impression Time: 08:02 Initial ECG Rate: 86 Initial ECG Rhythm: Normal Sinus Comment Sinus rhythm with left atrial abnormality. Right axis deviation. No evidence of ST elevation [place]. Change from previous which was atrial flutter with rapid ventricular response on 08/24/2018. Interpreted by me. Diagnostic Imaging Diagonstic Imaging: Xray Plain Films/CT/US/NM/MRI: chest [facility] [place], [place] NAME: [facility] REC#: [id number] PT STATUS: REG ER : 1960 PHYSICIAN: MARY CLEVELAND MD ADMIT DATE: 01/25/21/ER Draft Date of Exam:01/25/21 CHEST 1 VIEW, AP/PA ONLY INDICATION: Respiratory distress, sepsis COMPARISON: 08/09 FINDINGS: ET tube mid trachea. OG in the stomach. Right IJ at the mid SVC. There are patchy bilateral infiltrates greater right. Heart size upper limits. There is borderline vascular congestion. IMPRESSION: Support apparatus in good alignment. No pneumothorax. Bilateral infiltrates present with upper limits heart size and venous caliber. Dictated on workstation # [id number] Dict: 01/25/21 0802 Trans: 01/25/21 0816 [facility] [phone] Interpreted by: JOY HERNANDEZ Electronically signed by: Critical Care Note Critical Care Start Time: 06:35 Stop Time: 08:45 Total Time (minutes) Critical care time of 60 minutes excluding separately billable items including intubation and central line. Departure Communication (Admissions) Time/Spoke to Admitting Phy: 08:24 Time/Spoke to Consulting Phy: 08:42 Impression Primary Impression: Respiratory failure with hypoxia and hypercapnia Qualified Codes: J96.01 - Acute respiratory failure with hypoxia; J96.02 - Acute respiratory failure with hypercapnia Additional Impressions: COPD exacerbation Bilateral pneumonia Qualified Codes: J18.9 - Pneumonia, unspecified organism Disposition: ADMITTED INPATIENT Condition: Critical Admissions Decision to Admit Reason: Admit from ER (General) Decision to Admit/Date: Jan 25, 2021 Time/Decision to Admit Time: 08:27 Departure-Patient Inst. Referrals: [facility] (PCP/Family) Primary Care Physician MARY CLEVELAND MD Jan 25, 2021 08:27
[2021-01-25 09:08] VITALS: BP 103/68
[2021-01-25] MEDS ORDERED: EPINEPHrine 1 MG INJECTION 4 MG in NS (IVPB) 248 ML IV SCH (09:15)
[2021-01-25 09:43] VITALS: BP 103/68
[2021-01-25] MEDS: LACTATED RINGERS 1,000 ML IV SCH ×3 (09:54→23:42)
[2021-01-25] MEDS: NOREPINEPHRINE 8 MG/250 ML 250 ML IV SCH ×2 (09:54→18:07)
[2021-01-25] MEDS: VASOPRESSIN INJECTION 20 UNIT in NS (IVPB) 100 ML IV SCH ×2 (09:54→20:43)
[2021-01-25] MEDS ORDERED: RT-ALBUTEROL/IPRATROPIUM 3 ML (DUONEB) VIAL INH PRN (10:00)
[2021-01-25] MEDS ORDERED: RT-ALBUTEROL/IPRATROPIUM 3 ML (DUONEB) VIAL ONE (10:07)
[2021-01-25 10:09] VITALS: BP 95/64
[2021-01-25] MEDS: RT-ALBUTEROL/IPRATROPIUM 3 ML (DUONEB) VIAL INH SCH ×4 (10:09→23:02)
--- NOTE | 2021-01-25 10:56 | Pulmonary Consultation ---
ADIEL BEARD MED STUDENT 01/25/21 1056: History of Present Illness History of Present Illness Date Seen by Provider: Jan 25, 2021 Time Seen by Provider: 09:30 Date of Admission Jayme Baxter is a 60 y.o. M with history of COPD, Afib, DM2, HTN, HLD, morbid obesity, and gross lymphedema with scaling who was seen in the ER this morning for acute COPD exacerbation. The patient was reportedly drowsy yesterday and not arousable by family today. He was intubated in the ER due to unresponsiveness and hypoxia in the setting of COPD exacerbation. Allergies and Home Medications Allergies Coded Allergies: gabapentin (Verified Adverse Reaction, Mild, UPSET STOMACH, 10/27/18) naproxen (Verified Adverse Reaction, Mild, GI UPSET, 10/27/18) Home Medications Albuterol Sulfate 1 Puff Puff, 2 PUFF IH Q4H PRN for SHORTNESS OF BREATH, (Reported) 1 PUFF = 90 MCG Apixaban 5 Mg Tablet, 5 MG PO BID, (Reported) Diltiazem HCl 180 Mg Tab.er.24h, 180 MG PO DAILY, (Reported) Fluticasone/Vilanterol 1 Each Blst.w.dev, 1 EACH IH DAILY, (Reported) Furosemide 40 Mg Tablet, 40 MG PO DAILY, (Reported) Hydrocodone Bit/Acetaminophen 1 Each Tablet, 1 TAB PO Q4H Prescribed by: MATT SEAY on 11/04/18 1143 Metoprolol Succinate 100 Mg Tab.er.24h, 50 MG PO DAILY, (Reported) Potassium Chloride 10 Meq Capsule.er, 10 MEQ PO BID, (Reported) Propafenone HCl 225 Mg Tablet, 225 MG PO TID, (Reported) takes at 0600,1400,2200 Past Medical/Social/Family Hx Patient Social History Tobacco Use?: No Smoking Status: Unknown if Ever Smoked E-Cig and/or Vaping Freq: Unknown if Ever Used Substance use?: Unable to obtain Alcohol Use?: Unable to obtain Immunizations Up To Date Tetanus Booster (TDap): Unknown Date of Pneumonia Vaccine: Jul 19, 2017 Current Status Advance Directives: Unable to obtain Communicates: Does Not Communicate Primary Language: Serbian Preferred Spoken Language: Serbian Past Medical History Remote history of IV drug abuse COPD Tobacco abuse h/o Atrial flutter that converted to SR spontaneously Paroxysmal Atrial fibillation with normal BRAEDEN HLD Review of Systems Time Seen by Provider: 09:30 Other ROS is limited as patient is sedated and intubated. Sepsis Event Evaluation Height, Weight, BMI Height: 6'2.00" Weight: 263lbs. 3.0oz. 119.329732jo; 41.00 BMI Method:Stated Exam Exam Patient acknowledged, consented, and participated in this virtual visit which was conducted using real time audio/video Vital Signs Date Time Temp Pulse Resp B/P (MAP) Pulse Ox O2 Delivery O2 Flow Rate FiO2 01/25/21 10:30 78 20 92/61 99 Mechanical Ventilator 50.00 01/25/21 10:15 78 20 90/63 99 Mechanical Ventilator 50.00 01/25/21 10:09 76 20 99 50 01/25/21 10:00 80 20 95/64 100 Mechanical Ventilator 50.00 01/25/21 09:52 80 117/72 01/25/21 09:51 80 117/72 01/25/21 09:45 78 20 117/72 100 Mechanical Ventilator 50.00 01/25/21 09:43 37.0 78 99 01/25/21 09:30 78 20 99/67 100 Mechanical Ventilator 50.00 01/25/21 09:15 77 20 98/64 99 Mechanical Ventilator 50.00 01/25/21 09:08 78 20 99 50 01/25/21 09:06 36.3 77 20 103/68 99 Mechanical Ventilator 50.00 01/25/21 08:50 78 16 91/63 97 Mechanical Ventilator 01/25/21 08:47 78 87/63 01/25/21 07:15 109 20 98 70 01/25/21 07:14 105 111/82 01/25/21 06:35 37.0 161 21 143/118 (126) 96 NIV Bilevel 01/25/21 06:35 NIV Bilevel Height & Weight Height: 6'2.00" Weight: 263lbs. 3.0oz. 119.239096se; 41.00 BMI Method:Stated General Appearance: Moderate Distress, Obese HEENT: PERRL/EOMI, Pharynx Normal Neck: Non Tender, Supple Respiratory: Decreased Breath Sounds, Wheezing (expiratory), Other (on vent) Cardiovascular: No Murmur, Tachycardia Capillary Refill: Less Than 3 Seconds Gastrointestinal: soft Extremity: Pedal Edema (4+ to level above knees bilateral.), Other (Venous stasis changes noted to bilateral lower extremities) Neurologic/Psychiatric: Alert, Oriented x3, Other (Unresponsive on arrival with occasional moaning. Later noted to react to endotracheal tube with chewing and slightly moving bilateral upper extremities.) Skin: Warm/Dry, Erythema (Erythematous to the knees bilaterally with gross edema and scaling. Small area of left lateral calf has pink wet-appearing skin from loss of overlying scaling, no discharge or drainage seen.) Results Lab Laboratory Tests 01/25/21 06:46 Assessment/Plan Assessment/Plan Acute exacerbation of COPD Sepsis -afebrile -borderline hypotension 90's/60's -elevated lactate, CRP -Cefepime was started empirically Acute respiratory failure -obtain ABG -on ventilator TV 450, PEEP 5, RR 20, FiO2 50% -initial sedation with 80mg of propofol, this was reduced and precedex and fentanyl were added. bilateral lymphedema with scaling and erythema -wound care -LE pulses not palpable due to edema, skin is normal temperature at feet Elevated D-dimer -Start therapeutic dose of Lovenox Cash catheter in place FER VAZQUEZ MD 01/25/21 1316: Allergies and Home Medications Allergies Coded Allergies: gabapentin (Verified Adverse Reaction, Mild, UPSET STOMACH, 10/27/18) naproxen (Verified Adverse Reaction, Mild, GI UPSET, 10/27/18) Home Medications Albuterol Sulfate 1 Puff Puff, 2 PUFF IH Q4H PRN for SHORTNESS OF BREATH, (Reported) 1 PUFF = 90 MCG Apixaban 5 Mg Tablet, 5 MG PO BID, (Reported) Diltiazem HCl 180 Mg Tab.er.24h, 180 MG PO DAILY, (Reported) Fluticasone/Vilanterol 1 Each Blst.w.dev, 1 EACH IH DAILY, (Reported) Furosemide 40 Mg Tablet, 40 MG PO DAILY, (Reported) Hydrocodone Bit/Acetaminophen 1 Each Tablet, 1 TAB PO Q4H Prescribed by: MATT SEAY on 11/04/18 1143 Metoprolol Succinate 100 Mg Tab.er.24h, 50 MG PO DAILY, (Reported) Potassium Chloride 10 Meq Capsule.er, 10 MEQ PO BID, (Reported) Propafenone HCl 225 Mg Tablet, 225 MG PO TID, (Reported) takes at 0600,1400,2200 Supervisory-Addendum Brief Verification & Attestation Participated in pt care: history, MDM, physical Personally performed: history, MDM, supervision of care Care discussed with: Medical Student Procedures: n/a A medical student performed and documented this service. I reviewed all information documented by the medical student . Medical student performed patients physical exam . Medical decision making was done during tele-rounds with this medical student and a bedside RN . Please see my notes for details /clarification. ADIEL BEARD MED STUDENT Jan 25, 2021 10:56 FER VAZQUEZ MD Jan 25, 2021 13:16
[2021-01-25] MEDS: CEFEPIME INJECTION 1,000 MG in WATER (STERILE) FOR INJECTION 10 ML IV SCH ×3 (12:20→23:42)
[2021-01-25] MEDS: methylPREDNISolone 40 MG/ML (Solu-MEDROL) VIAL IV SCH ×3 (12:20→23:42)
[2021-01-25 12:30] LABS: ABG BASE EXCESS 15.1 MMOL/L (-2.5-2.5); ABG OXYGEN SATURATION 97 % (94-100); ABG PCO2 63 MMHG (35-45); ABG PH 7.42 (7.37-7.43); ABG PO2 85 MMHG (79-93)
[2021-01-25 12:34] LABS: ABG TCO2 42.6 MMOL/L (21.0-31.0); ALLENS TEST YES-POS; INSPIRED O2 50%; PATIENT TEMP 36.4; VENTILATOR YES
--- NOTE | 2021-01-25 13:16 | Tele-ICU Consult ---
History of Present Illness History of Present Illness Date Seen by Provider: Jan 25, 2021 Time Seen by Provider: 09:13 Date of Admission Allergies and Home Medications Allergies Coded Allergies: gabapentin (Verified Adverse Reaction, Mild, UPSET STOMACH, 10/27/18) naproxen (Verified Adverse Reaction, Mild, GI UPSET, 10/27/18) Home Medications Albuterol Sulfate 1 Puff Puff, 2 PUFF IH Q4H PRN for SHORTNESS OF BREATH, (Reported) 1 PUFF = 90 MCG Apixaban 5 Mg Tablet, 5 MG PO BID, (Reported) Diltiazem HCl 180 Mg Tab.er.24h, 180 MG PO DAILY, (Reported) Fluticasone/Vilanterol 1 Each Blst.w.dev, 1 EACH IH DAILY, (Reported) Furosemide 40 Mg Tablet, 40 MG PO DAILY, (Reported) Hydrocodone Bit/Acetaminophen 1 Each Tablet, 1 TAB PO Q4H Prescribed by: MATT SEAY on 11/04/18 1143 Metoprolol Succinate 100 Mg Tab.er.24h, 50 MG PO DAILY, (Reported) Potassium Chloride 10 Meq Capsule.er, 10 MEQ PO BID, (Reported) Propafenone HCl 225 Mg Tablet, 225 MG PO TID, (Reported) takes at 0600,1400,2200 Past Medical/Social/Family Hx Patient Social History Tobacco Use?: No Smoking Status: Unknown if Ever Smoked Smokeless Tobacco Frequency: Never a User Use of E-Cig and/or Vaping dev: No E-Cig and/or Vaping Freq: Unknown if Ever Used Substance use?: No Alcohol Use?: No Pt stated abuse/neglect: No Immunizations Up To Date Influenza Vaccine Up-to-Date: No; Not Current First/Initial COVID19 Vaccinat: 07/05/20 Second COVID19 Vaccination Blake: 08-05-20 Tetanus Booster (TDap): Unknown Hepatitis A: No Hepatitis B: No TB Skin Test: None Date of Pneumonia Vaccine: Jul 19, 2017 Current Status Advance Directives: No Communicates: Verbally Primary Language: Nepalese Preferred Spoken Language: Nepalese Is interpretation needed?: No Past Medical History Remote history of IV drug abuse COPD Tobacco abuse h/o Atrial flutter that converted to SR spontaneously Paroxysmal Atrial fibillation with normal BRAEDEN HLD Review of Systems Constitutional: see HPI Sepsis Event Evaluation Height, Weight, BMI Height: 6'2.00" Weight: 263lbs. 3.0oz. 119.400790pr; 40.12 BMI Method:Stated Exam Exam Patient acknowledged, consented, and participated in this virtual visit which was conducted using real time audio/video Vital Signs Date Time Temp Pulse Resp B/P (MAP) Pulse Ox O2 Delivery O2 Flow Rate FiO2 01/25/21 12:00 78 20 89/61 99 Mechanical Ventilator 50.00 01/25/21 12:00 35.6 01/25/21 11:00 80 21 Mechanical Ventilator 50.00 01/25/21 10:30 78 20 92/61 99 Mechanical Ventilator 50.00 01/25/21 10:15 78 20 90/63 99 Mechanical Ventilator 50.00 01/25/21 10:09 76 20 99 50 01/25/21 10:00 80 20 95/64 100 Mechanical Ventilator 50.00 01/25/21 09:52 80 117/72 01/25/21 09:51 80 117/72 01/25/21 09:45 78 20 117/72 100 Mechanical Ventilator 50.00 01/25/21 09:43 37.0 78 99 01/25/21 09:30 78 20 99/67 100 Mechanical Ventilator 50.00 01/25/21 09:15 77 20 98/64 99 Mechanical Ventilator 50.00 01/25/21 09:08 78 20 99 50 01/25/21 09:06 36.3 77 20 103/68 99 Mechanical Ventilator 50.00 01/25/21 09:06 79 01/25/21 09:00 Mechanical Ventilator 50 01/25/21 08:50 78 16 91/63 97 Mechanical Ventilator 01/25/21 08:47 78 87/63 01/25/21 07:15 109 20 98 70 01/25/21 07:14 105 111/82 01/25/21 06:35 37.0 161 21 143/118 (126) 96 NIV Bilevel 01/25/21 06:35 NIV Bilevel Height & Weight Height: 6'2.00" Weight: 263lbs. 3.0oz. 119.358534xa; 40.12 BMI Method:Stated General Appearance: Moderate Distress, Obese, Other HEENT: PERRL/EOMI, Pharynx Normal Neck: Non Tender, Supple Respiratory: Decreased Breath Sounds, Wheezing (expiratory), Other (on vent) Cardiovascular: No Murmur, Tachycardia Capillary Refill: Less Than 3 Seconds Gastrointestinal: soft Extremity: Pedal Edema (4+ to level above knees bilateral.), Other (Venous stasis changes noted to bilateral lower extremities) Neurologic/Psychiatric: Alert, Oriented x3, Other (Unresponsive on arrival with occasional moaning. Later noted to react to endotracheal tube with chewing and slightly moving bilateral upper extremities.) Skin: Warm/Dry, Erythema (Erythematous to the knees bilaterally with gross edema and scaling. Small area of left lateral calf has pink wet-appearing skin from loss of overlying scaling, no discharge or drainage seen.) Results Lab Laboratory Tests 01/25/21 06:46 Assessment/Plan Assessment/Plan (Tele-ICU Physician , consultation) Available chart/ vitals / labs / Images reviewed H&P is from ER notes Patient's information available about PMH, Shx, Fhx allergy reviewed in EMR. ROS as per chart and RN report Now in ICU, hemodynamically stable Video assessment done using teleICU camera, rest of exam as per RN Discussed with RN. 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 CARA vs OHS MARCOS - chronic , if not compliant with eliquis , consider US LE Lines : RIGHT IJ 01/25 (Central Line Necessity Reviewed) Cash: 01/25 O/30 Nutrition: Analgesia: Anxiety/ delirium VTE Prophylaxis: eliquis Stress Ulcer Prophylaxis: PPI Glycemic Control: Plans in collaboration with bedside consultants and IM MDs. Discussed with RN to reach out if any questions or concerns A total of 35 minutes of critical care time was devoted to this patient today, required to treat and/or prevent further deterioration of critical care condition ( as above ) . FER VAZQUEZ MD Jan 25, 2021 13:16
[2021-01-25 14:44] VITALS: BP 126/80
[2021-01-25] MEDS ORDERED: TIZA4TAB4 PO (15:25)
[2021-01-25] MEDS ORDERED: ACET-2267 PO (15:25)
[2021-01-25] MEDS ORDERED: DILT180C82 PO (15:25)
[2021-01-25] MEDS ORDERED: FLUT1BLS15 INH (15:25)
--- NOTE | 2021-01-25 15:32 | Diagnostic Imaging Report ---
PROCEDURE: US Venous Lower Ext Brian. TECHNIQUE: Multiple real-time grayscale images were obtained over the lower extremities in various projections, bilaterally. Additional duplex Doppler and color Doppler images were also obtained. INDICATION: Lower extremity swelling and pain. COMPARISON: None. FINDINGS: Visualized deep and superficial venous system is patent. There is no DVT. IMPRESSION: Negative lower extremity venous Doppler. Dictated by: Dictated on workstation # [id number]
[2021-01-25] MEDS: fentaNYL DRIP PRE-MIX 250 ML IV SCH (16:56)
[2021-01-25] MEDS ORDERED: fentaNYL INJ 100 MCG/2 ML AMP IV ONE (19:17)
[2021-01-25] MEDS ORDERED: ETOMIDATE IV SOLN 20 MG/10 ML VIAL IV ONE (19:17)
[2021-01-25] MEDS ORDERED: MIDAZOLAM 5 MG/5 ML (VERSED) VIAL INJ ONE (19:17)
[2021-01-25] MEDS ORDERED: ROCURONIUM 10 MG/ML 5 ML SYRINGE IV ONE (19:17)
[2021-01-25] MEDS ORDERED: SUCCINYLCHOLINE INJ 100 MG/5 ML SYR/VIAL INJ ONE (19:17)
[2021-01-25 19:26] VITALS: BP 132/79
[2021-01-25] MEDS: MICONAZOLE 2% POWDER (DESENEX AF) 90 GM TOP SCH (20:43)
--- NOTE | 2021-01-25 21:13 | History & Physical ---
HPI History of Present Illness: 60 yo M with known COPD that was found by spouse slumped over and having a hard time breathing. He was more fatigued the last few days per . Patient was trying to answer but was not making since when she found him. He was moving all his extremities. He has a baseline oxygen requirement of 3LPM. He was intubated in the ER for airway protection. Source: RN/MD, spouse Exam Limitations: clinical condition Date seen by provider: Jan 25, 2021 Time Seen by Provider: 09:15 Attending Physician Abdias Recio MD PCP Center/[facility] [place] Consult Date of Admission Jan 25, 2021 at 08:28 Home Medications Home Medications Reviewed patient Home Medication Reconciliation performed by pharmacy medication reconciliations certified hyperbaric technician and/or nursing. Patients Allergies have been reviewed. Allergies Coded Allergies: gabapentin (Verified Adverse Reaction, Mild, UPSET STOMACH, 10/27/18) naproxen (Verified Adverse Reaction, Mild, GI UPSET, 10/27/18) EZX-Gofhnd-Rmeyum Hx Patient Social History Living Status: Lives with Drug of Choice: PAST HX Smoking Status: Unknown if Ever Smoked 2nd Hand Smoke Exposure: Yes Recent Hopitalizations: No Alcohol Use?: No Have you traveled recently?: No Immunizations Up To Date Tetanus Booster (TDap): Unknown Date of Pneumonia Vaccine: Jul 19, 2017 Date of Influenza Vaccine: Jul 19, 2017 Past Medical History Remote history of IV drug abuse COPD Tobacco abuse h/o Atrial flutter that converted to SR spontaneously Paroxysmal Atrial fibillation with normal BRAEDEN HLD Family Medical History Significant Family History: Heart Disease, Cancer, CAD Under 55 Years Old Review of Systems (CHC) Constitutional: other (Unable to gather due to intubation and sedation) Reviewed Test Results Reviewed Test Results Lab Laboratory Tests Test 01/25/21 06:46 01/25/21 07:00 01/25/21 07:08 01/25/21 07:10 Range/Units White Blood Count 15.4 H 4.3-11.0 10^3/uL Red Blood Count 5.20 4.30-5.52 10^6/uL Hemoglobin 14.3 13.3-17.7 g/dL Hematocrit 50 40-54 % Mean Corpuscular Volume 97 80-99 fL Mean Corpuscular Hemoglobin 28 25-34 pg Mean Corpuscular Hemoglobin Concent 29 L 32-36 g/dL Red Cell Distribution Width 14.9 H 10.0-14.5 % Platelet Count 175 130-400 10^3/uL Mean Platelet Volume 11.3 9.0-12.2 fL Immature Granulocyte % (Auto) 1 % Neutrophils (%) (Auto) 79 H 42-75 % Lymphocytes (%) (Auto) 10 L 12-44 % Monocytes (%) (Auto) 11 0-12 % Eosinophils (%) (Auto) 0 0-10 % Basophils (%) (Auto) 0 0-10 % Neutrophils # (Auto) 12.1 H 1.8-7.8 10^3/uL Lymphocytes # (Auto) 1.5 1.0-4.0 10^3/uL Monocytes # (Auto) 1.6 H 0.0-1.0 10^3/uL Eosinophils # (Auto) 0.0 0.0-0.3 10^3/uL Basophils # (Auto) 0.1 0.0-0.1 10^3/uL Immature Granulocyte # (Auto) 0.1 0.0-0.1 10^3/uL Neutrophils % (Manual) 71 % Lymphocytes % (Manual) 10 % Monocytes % (Manual) 14 % Eosinophils % (Manual) 0 % Basophils % (Manual) 0 % Band Neutrophils 5 % Anisocytosis SLIGHT Sodium Level 142 135-145 MMOL/L Potassium Level 5.2 H 3.6-5.0 MMOL/L Chloride Level 95 L 98-107 MMOL/L Carbon Dioxide Level 36 H 21-32 MMOL/L Anion Gap 11 5-14 MMOL/L Blood Urea Nitrogen 16 7-18 MG/DL Creatinine 1.04 0.60-1.30 MG/DL Estimat Glomerular Filtration Rate 72 BUN/Creatinine Ratio 15 Glucose Level 200 H 70-105 MG/DL Calcium Level 8.9 8.5-10.1 MG/DL Corrected Calcium 9.0 8.5-10.1 MG/DL Total Bilirubin 0.9 0.1-1.0 MG/DL Aspartate Amino Transf (AST/SGOT) 17 5-34 U/L Alanine Aminotransferase (ALT/SGPT) 14 0-55 U/L Alkaline Phosphatase 76 40-136 U/L Troponin I < 0.028 <0.028 NG/ML C-Reactive Protein High Sensitivity 5.51 H 0.00-0.50 MG/DL B-Type Natriuretic Peptide 159.0 H <100.0 PG/ML Total Protein 7.6 6.4-8.2 GM/DL Albumin 3.9 3.2-4.5 GM/DL Triglycerides Level 75 <150 MG/DL Influenza Type A (RT-PCR) Not Detected Not Detecte Influenza Type B (RT-PCR) Not Detected Not Detecte SARS-CoV-2 RNA (RT-PCR) Not Detected Not Detecte Blood Gas Puncture Site RR Blood Gas Patient Temperature 36.8 Arterial Blood pH 7.26 *L 7.37-7.43 Arterial Blood Partial Pressure CO2 94 *H 35-45 MMHG Arterial Blood Partial Pressure O2 254 H 79-93 MMHG Arterial Blood HCO3 41 *H 23-27 MMOL/L Arterial Blood Total CO2 44.0 *H 21.0-31.0 MMOL/L Arterial Blood Oxygen Saturation 99 94-100 % Arterial Blood Base Excess 13.6 H -2.5-2.5 MMOL/L Jair Test YES-POS Blood Gas Ventilator Setting YES Blood Gas Inspired Oxygen 100% Urine Color ORANGE Urine Clarity CLEAR Urine pH 6.0 5-9 Urine Specific [place] >=1.030 1.016-1.022 Urine Protein 3+ H NEGATIVE Urine Glucose (UA) NEGATIVE NEGATIVE Urine Ketones 1+ H NEGATIVE Urine Nitrite NEGATIVE NEGATIVE Urine Bilirubin 2+ H NEGATIVE Urine Urobilinogen 2.0 < = 1.0 MG/DL Urine Leukocyte Esterase NEGATIVE NEGATIVE Urine RBC (Auto) 1+ H NEGATIVE Urine RBC RARE /HPF Urine WBC NONE /HPF Urine Squamous Epithelial Cells RARE /HPF Urine Crystals NONE /LPF Urine Bacteria TRACE /HPF Urine Casts PRESENT /LPF Urine Hyaline Casts 2-5 H /LPF Urine Mucus SMALL H /LPF Urine Culture Indicated CULTURE PENDING Test 01/25/21 07:20 01/25/21 07:26 01/25/21 09:45 01/25/21 12:00 Range/Units Prothrombin Time 15.3 H 12.2-14.7 SEC INR Comment 1.2 0.8-1.4 Activated Partial Thromboplast Time 29 24-35 SEC D-Dimer 2.40 H 0.00-0.49 UG/ML Lactic Acid Level 2.90 *H 3.33 *H 2.92 *H 0.50-2.00 MMOL/L Test 01/25/21 12:22 01/25/21 13:56 01/25/21 15:58 01/25/21 18:10 Range/Units Blood Gas Puncture Site LR Blood Gas Patient Temperature 36.4 Arterial Blood pH 7.42 7.37-7.43 Arterial Blood Partial Pressure CO2 63 H 35-45 MMHG Arterial Blood Partial Pressure O2 85 79-93 MMHG Arterial Blood HCO3 41 *H 23-27 MMOL/L Arterial Blood Total CO2 42.6 *H 21.0-31.0 MMOL/L Arterial Blood Oxygen Saturation 97 94-100 % Arterial Blood Base Excess 15.1 H -2.5-2.5 MMOL/L Jair Test YES-POS Blood Gas Ventilator Setting YES Blood Gas Inspired Oxygen 50% Lactic Acid Level 3.10 *H 3.54 *H 3.14 *H 0.50-2.00 MMOL/L Test 01/25/21 21:10 Range/Units Physical Exam-(CHC) Physical Exam Vital Signs VS - Last 72 Hours, by Label 01/25/21 01/25/21 01/25/21 01/25/21 06:35 06:35 07:14 07:15 Temp 37.0 Pulse 161 105 109 Resp 21 20 B/P (MAP) 143/118 (126) 111/82 Pulse Ox 96 98 O2 Delivery NIV Bilevel NIV Bilevel FiO2 70 01/25/21 01/25/21 01/25/21 01/25/21 08:47 08:50 09:00 09:06 Pulse 78 78 79 Resp 16 B/P (MAP) 87/63 91/63 Pulse Ox 97 O2 Delivery Mechanical Ventilator Mechanical Ventilator FiO2 50 01/25/21 01/25/21 01/25/21 01/25/21 09:06 09:08 09:15 09:30 Temp 36.3 Pulse 77 78 77 78 Resp 20 20 20 20 B/P (MAP) 103/68 98/64 99/67 Pulse Ox 99 99 99 100 O2 Delivery Mechanical Ventilator Mechanical Ventilator Mechanical Ventilator O2 Flow Rate 50.00 50.00 50.00 FiO2 50 01/25/21 01/25/21 01/25/21 01/25/21 09:43 09:45 09:51 09:52 Temp 37.0 Pulse 78 78 80 80 Resp 20 B/P (MAP) 117/72 117/72 117/72 Pulse Ox 99 100 O2 Delivery Mechanical Ventilator O2 Flow Rate 50.00 01/25/21 01/25/21 01/25/21 01/25/21 10:00 10:09 10:15 10:30 Pulse 80 76 78 78 Resp 20 20 20 20 B/P (MAP) 95/64 90/63 92/61 Pulse Ox 100 99 99 99 O2 Delivery Mechanical Ventilator Mechanical Ventilator Mechanical Ventilator O2 Flow Rate 50.00 50.00 50.00 FiO2 50 01/25/21 01/25/21 01/25/21 01/25/21 11:00 12:00 12:00 12:00 Temp 35.6 Pulse 80 78 Resp 20 B/P (MAP) 89/61 Pulse Ox 97 99 O2 Delivery Mechanical Ventilator Mechanical Ventilator Mechanical Ventilator O2 Flow Rate 50.00 50.00 01/25/21 01/25/21 01/25/21 01/25/21 13:00 13:15 13:30 13:45 Pulse 76 73 72 73 Resp 20 20 20 20 B/P (MAP) 88/61 91/62 90/64 99/61 Pulse Ox 99 99 100 100 O2 Delivery Mechanical Ventilator Mechanical Ventilator Mechanical Ventilator Mechanical Ventilator O2 Flow Rate 50.00 50.00 50.00 35.00 01/25/21 01/25/21 01/25/21 01/25/21 13:50 13:50 14:00 14:15 Pulse 78 78 76 85 Resp 20 20 B/P (MAP) 89/61 89/61 118/75 121/79 Pulse Ox 95 94 O2 Delivery Mechanical Ventilator Mechanical Ventilator O2 Flow Rate 35.00 35.00 01/25/21 01/25/21 01/25/21 01/25/21 14:30 14:44 14:45 15:00 Pulse 85 85 85 87 Resp 20 20 20 20 B/P (MAP) 126/77 126/80 124/78 Pulse Ox 93 91 91 92 O2 Delivery Mechanical Ventilator Mechanical Ventilator Mechanical Ventilator O2 Flow Rate 35.00 35.00 35.00 FiO2 30 01/25/21 01/25/21 01/25/21 01/25/21 15:15 15:30 15:45 16:00 Pulse 89 95 96 Resp 24 B/P (MAP) 131/79 107/73 112/83 Pulse Ox 90 94 92 97 O2 Delivery Mechanical Ventilator Mechanical Ventilator Mechanical Ventilator Mechanical Ventilator O2 Flow Rate 35.00 35.00 35.00 01/25/21 01/25/21 01/25/21 01/25/21 16:00 16:15 16:30 16:45 Temp 36.4 Pulse 92 92 85 84 Resp 22 24 21 20 B/P (MAP) 128/79 131/80 115/67 125/71 Pulse Ox 94 96 97 97 O2 Delivery Mechanical Ventilator Mechanical Ventilator Mechanical Ventilator Mechanical Ventilator O2 Flow Rate 35.00 35.00 35.00 35.00 01/25/21 01/25/21 01/25/21 01/25/21 17:00 18:00 18:15 18:30 Pulse 84 80 79 77 Resp 20 21 20 20 B/P (MAP) 125/73 112/66 127/65 116/66 Pulse Ox 97 97 96 97 O2 Delivery Mechanical Ventilator Mechanical Ventilator Mechanical Ventilator Mechanical Ventilator O2 Flow Rate 35.00 35.00 35.00 35.00 01/25/21 01/25/21 01/25/21 01/25/21 18:45 19:00 19:26 20:42 Temp 36.8 Pulse 78 78 75 Resp 20 20 19 B/P (MAP) 118/67 116/67 Pulse Ox 96 97 96 O2 Delivery Mechanical Ventilator Mechanical Ventilator Mechanical Ventilator O2 Flow Rate 35.00 35.00 35.00 FiO2 30 Capillary Refill : Less Than 3 Seconds General Appearance: mild distress (Intubated and sedated) HEENT: PERRL/EOMI Neck: supple Respiratory: accessory muscle use, crackles, wheezing Cardiovascular: no murmur, irregularly irregular Gastrointestinal: normal bowel sounds, soft Extremities: normal capillary refill, pedal edema (3+ pitting edema with chronic venous statis changes) Neurologic/Psychiatric: other (Intubated and sedated) Lymphatic: no adenopathy Assessment/Plan Assessment/Plan Admission Status: Inpatient Order (span 2 midnights) Reason for Inpatient Admission: Requiring ICU care with close monitoring (1) Acute and chronic respiratory failure with hypoxia Status: Acute Assessment & Plan: - Patient intubated and sedated, eICU managing (2) Bilateral pneumonia Status: Acute Assessment & Plan: - Continue IV antibiotics for presumed PNA Qualifiers: Qualified Codes: J18.9 - Pneumonia, unspecified organism (3) COPD exacerbation Status: Acute Assessment & Plan: - Steroids (4) HTN (hypertension) Status: Chronic Assessment & Plan: - holding home meds Qualifiers: Qualified Codes: I10 - Essential (primary) hypertension (5) Tobacco abuse Status: Chronic (6) Elevated d-dimer Status: Acute Assessment & Plan: - Lovenox (7) DVT prophylaxis Status: Acute ABDIAS RECIO MD Jan 25, 2021 21:13
[2021-01-25 23:02] VITALS: BP 120/66
[2021-01-26] MEDS: PROPOFOL DRIP (ICU) 100 ML IV SCH ×6 (00:46→21:24)
[2021-01-26 03:03] VITALS: BP 116/67
[2021-01-26] MEDS: RT-ALBUTEROL/IPRATROPIUM 3 ML (DUONEB) VIAL INH SCH ×6 (03:03→23:12)
[2021-01-26] MEDS: methylPREDNISolone 40 MG/ML (Solu-MEDROL) VIAL IV SCH ×4 (05:00→23:36)
[2021-01-26] MEDS: CEFEPIME INJECTION 1,000 MG in WATER (STERILE) FOR INJECTION 10 ML IV SCH ×4 (05:00→23:36)
[2021-01-26 05:20] LABS: ABG BASE EXCESS 13.5 MMOL/L (-2.5-2.5); ABG OXYGEN SATURATION 92 % (94-100); ABG PCO2 67 MMHG (35-45); ABG PH 7.39 (7.37-7.43); ABG PO2 68 MMHG (79-93); BASOPHILS % (AUTO) 0 % (0-10); EOSINOPHILS % (AUTO) 0 % (0-10); HEMATOCRIT 45 % (40-54); HEMOGLOBIN 13.4 g/dL (13.3-17.7); LYMPHOCYTES # (AUTO) 0.8 10^3/uL (1.0-4.0); LYMPHOCYTES % (AUTO) 7 % (12-44); MEAN CORPUSCULAR HEMOGLOBIN 27 pg (25-34); MEAN CORPUSCULAR HGB CONC 30 g/dL (32-36); MEAN CORPUSCULAR VOLUME 91 fL (80-99); MEAN PLATELET VOLUME 11.5 fL (9.0-12.2); MONOCYTES # (AUTO) 0.5 10^3/uL (0.0-1.0); MONOCYTES % (AUTO) 5 % (0-12); NEUTROPHILS # (AUTO) 9.6 10^3/uL (1.8-7.8); NEUTROPHILS % (AUTO) 87 % (42-75); PLATELET COUNT 154 10^3/uL (130-400)
[2021-01-26 05:22] LABS: ABG TCO2 41.1 MMOL/L (21.0-31.0); ALLENS TEST YES-POS; INSPIRED O2 35%; PATIENT TEMP 37.1; VENTILATOR YES
[2021-01-26 05:45] LABS: ALBUMIN 3.3 GM/DL (3.2-4.5); POTASSIUM 4.6 MMOL/L (3.6-5.0)
[2021-01-26 05:46] LABS: CALCIUM 9.1 MG/DL (8.5-10.1)
[2021-01-26 05:48] LABS: TOTAL PROTEIN 6.3 GM/DL (6.4-8.2)
[2021-01-26 05:49] LABS: BILIRUBIN,TOTAL 0.6 MG/DL (0.1-1.0)
[2021-01-26 05:51] LABS: CREATININE SERUM 0.8 MG/DL (0.60-1.30)
[2021-01-26] MEDS: NOREPINEPHRINE 8 MG/250 ML 250 ML IV SCH ×2 (05:58→15:20)
[2021-01-26] MEDS: LACTATED RINGERS 1,000 ML IV SCH ×3 (05:58→18:33)
[2021-01-26 06:35] VITALS: BP 119/65
[2021-01-26] MEDS: VASOPRESSIN INJECTION 20 UNIT in NS (IVPB) 100 ML IV SCH ×2 (07:40→18:03)
[2021-01-26] MEDS: dilTIAZem DRIP PRE-MIX 125 ML IV SCH ×2 (07:40→10:11)
[2021-01-26] MEDS: MICONAZOLE 2% POWDER (DESENEX AF) 90 GM TOP SCH ×2 (08:22→20:02)
[2021-01-26] MEDS: PANTOPRAZOLE 40 MG (PROTONIX) VIAL IV SCH (08:22)
[2021-01-26 09:57] VITALS: BP 118/84
[2021-01-26] MEDS ORDERED: DIGOXIN 0.25 MG/ML (LANOXIN) 2 ML AMP ONE (10:07)
--- NOTE | 2021-01-26 10:14 | Tele-ICU Progress Note ---
Subjective Date Seen by a Provider: Jan 26, 2021 Time Seen by a Provider: 10:09 Subjective/Events-last exam This patient admitted with severe COPD exacerbation with CO2 retention and became unresponsive requiring intubation. This a.m. while he is on mechanical ventilation apparently RN Turned to to the side meanwhile he developed to the tachycardia with a heart rate of 160-170/min. I was called on to look at his rhythm which is irregular. I have a suspicion of underlying atrial fibrillation. I have ordered her to give diltiazem 10 mg IV with which the heart rate decreasing to [id number] but not any less. I did not see any P waves on the monitor. I have ordered a chest x-ray, EKG. In addition I have ordered dil tiazem drip and IV digoxin. We will continue to monitor his rate. At this time I do not want to decrease his vent setting any further. I will evaluate his chest x-ray as soon as it is available.I have reviewed his old records which revealed that he has hx of aflutter and had abalation. this event likely afib with rvr. Will consult cardiology. Review of Systems ROS PER ATTENDING PHYSICIAN Sepsis Event Evaluation Height, Weight, BMI Height: 6'2.00" Weight: 263lbs. 3.0oz. 119.425095ye; 40.12 BMI Method:Stated Focused Exam Lactate Level 01/25/21 18:10: Lactic Acid Level 3.14*H 01/25/21 21:10: Lactic Acid Level 2.53*H 01/25/21 23:10: Lactic Acid Level 2.64*H Exam Exam Patient acknowledged, consented, and participated in this virtual visit which was conducted using real time audio/video Vital Signs Date Time Temp Pulse Resp B/P (MAP) Pulse Ox O2 Delivery O2 Flow Rate FiO2 01/26/21 09:57 165 21 92 35 01/26/21 09:20 99 118/67 01/26/21 09:00 87 21 113/67 92 Mechanical Ventilator 35.00 01/26/21 08:40 37.4 01/26/21 08:28 91 Mechanical Ventilator 35 01/26/21 08:00 90 20 116/65 92 Mechanical Ventilator 35.00 01/26/21 07:00 84 21 119/66 92 Mechanical Ventilator 35.00 01/26/21 07:00 85 01/26/21 06:35 83 20 93 35 10/1/21 06:00 89 21 119/65 93 Mechanical Ventilator 35.00 01/26/21 05:00 94 20 120/66 92 Mechanical Ventilator 35.00 01/26/21 04:59 96 122/68 01/26/21 04:15 37.1 01/26/21 04:00 85 20 122/68 93 Mechanical Ventilator 35.00 01/26/21 04:00 95 Mechanical Ventilator 35 01/26/21 03:03 82 21 93 35 01/26/21 03:00 82 20 117/69 92 Mechanical Ventilator 35.00 01/26/21 02:00 86 23 120/66 93 Mechanical Ventilator 35.00 01/26/21 01:00 92 01/26/21 01:00 92 20 120/66 93 Mechanical Ventilator 35.00 01/26/21 00:46 93 153/79 01/26/21 00:00 95 Mechanical Ventilator 35 01/26/21 00:00 88 21 153/79 93 Mechanical Ventilator 35.00 01/25/21 23:41 36.8 01/25/21 23:02 84 21 94 35 01/25/21 23:00 85 19 145/75 94 Mechanical Ventilator 35.00 01/25/21 22:00 84 20 117/65 94 Mechanical Ventilator 35.00 01/25/21 21:00 82 20 127/69 94 Mechanical Ventilator 35.00 01/25/21 20:42 36.8 Mechanical Ventilator 35.00 01/25/21 20:00 95 Mechanical Ventilator 35 01/25/21 20:00 80 20 143/78 95 Mechanical Ventilator 35.00 01/25/21 19:26 75 19 96 30 01/25/21 19:00 76 20 115/62 96 Mechanical Ventilator 35.00 01/25/21 19:00 78 20 116/67 97 Mechanical Ventilator 35.00 01/25/21 19:00 76 01/25/21 18:45 78 20 118/67 96 Mechanical Ventilator 35.00 01/25/21 18:30 77 20 116/66 97 Mechanical Ventilator 35.00 01/25/21 18:15 79 20 127/65 96 Mechanical Ventilator 35.00 01/25/21 18:00 80 21 112/66 97 Mechanical Ventilator 35.00 01/25/21 17:00 84 20 125/73 97 Mechanical Ventilator 35.00 01/25/21 16:45 84 20 125/71 97 Mechanical Ventilator 35.00 01/25/21 16:30 85 21 115/67 97 Mechanical Ventilator 35.00 01/25/21 16:15 92 24 131/80 96 Mechanical Ventilator 35.00 01/25/21 16:00 36.4 92 22 128/79 94 Mechanical Ventilator 35.00 01/25/21 16:00 97 Mechanical Ventilator 01/25/21 15:45 96 24 112/83 92 Mechanical Ventilator 35.00 01/25/21 15:30 95 21 107/73 94 Mechanical Ventilator 35.00 01/25/21 15:15 89 24 131/79 90 Mechanical Ventilator 35.00 01/25/21 15:00 87 20 124/78 92 Mechanical Ventilator 35.00 01/25/21 14:45 85 20 126/80 91 Mechanical Ventilator 35.00 01/25/21 14:44 85 20 91 30 01/25/21 14:30 85 20 126/77 93 Mechanical Ventilator 35.00 01/25/21 14:15 85 20 121/79 94 Mechanical Ventilator 35.00 01/25/21 14:00 76 20 118/75 95 Mechanical Ventilator 35.00 01/25/21 13:50 78 89/61 01/25/21 13:50 78 89/61 01/25/21 13:45 73 20 99/61 100 Mechanical Ventilator 35.00 01/25/21 13:30 72 20 90/64 100 Mechanical Ventilator 50.00 01/25/21 13:15 73 20 91/62 99 Mechanical Ventilator 50.00 01/25/21 13:00 76 20 88/61 99 Mechanical Ventilator 50.00 01/25/21 12:00 78 20 89/61 99 Mechanical Ventilator 50.00 01/25/21 12:00 97 Mechanical Ventilator 01/25/21 12:00 35.6 01/25/21 11:00 80 21 Mechanical Ventilator 50.00 01/25/21 10:30 78 20 92/61 99 Mechanical Ventilator 50.00 01/25/21 10:15 78 20 90/63 99 Mechanical Ventilator 50.00 I & O 01/26/21 07:00 Intake Total 3340 ml Output Total 1155 ml Balance 2185 ml Height & Weight Height: 6'2.00" Weight: 263lbs. 3.0oz. 119.471475zw; 40.12 BMI Method:Stated General Appearance: Moderate Distress, Obese, Other HEENT: PERRL/EOMI, Pharynx Normal Neck: Non Tender, Supple Respiratory: Decreased Breath Sounds, Wheezing (expiratory), Other (on vent) Cardiovascular: No Murmur, Tachycardia Capillary Refill: Less Than 3 Seconds Gastrointestinal: normal bowel sounds, soft Extremity: Pedal Edema (4+ to level above knees bilateral.), Other (Venous stasis changes noted to bilateral lower extremities) Neurologic/Psychiatric: Alert, Oriented x3, Other (Unresponsive on arrival with occasional moaning. Later noted to react to endotracheal tube with chewing and slightly moving bilateral upper extremities.) Skin: Warm/Dry, Erythema (Erythematous to the knees bilaterally with gross edema and scaling. Small area of left lateral calf has pink wet-appearing skin from loss of overlying scaling, no discharge or drainage seen.) Results Lab Laboratory Tests 01/25/21 06:46 01/26/21 05:00 Meds REVIEWED Radiology NAME: KAYA LAUREN [facility] REC#: [id number] PT STATUS: ADM IN : 1960 PHYSICIAN: MARY CLEVELAND MD ADMIT DATE: 01/25/21/ICU Signed Date of Exam:01/25/21 CHEST 1 VIEW, AP/PA ONLY INDICATION: Respiratory distress, sepsis COMPARISON: 08/09 FINDINGS: ET tube mid trachea. OG in the stomach. Right IJ at the mid SVC. There are patchy bilateral infiltrates greater right. Heart size upper limits. There is borderline vascular congestion. IMPRESSION: Support apparatus in good alignment. No pneumothorax. Bilateral infiltrates present with upper limits heart size and venous caliber. Dictated by: Dictated on workstation # [id number] Dict: 01/25/21 0802 Trans: 01/25/21 1157 [facility] [id number] Interpreted by: JOY HERNANDEZ Electronically signed by: JOY HERNANDEZ 01/25/21 1157 Assessment/Plan Assessment/Plan 1. Acute and chronic respiratory failure requiring mechanical ventilation. 2. COPD exacerbation 3. Bilateral pneumonia 4. Recurrence of atrial fibrillation with rapid ventricular rate 5. History of tobacco abuse 6. Hypertension currently stable. Recommendations 1. We will start him on Cardizem drip and IV digoxin 2. We will get an EKG and echocardiogram 3. Get a cardiology consultation. 4. Continue current mechanical ventilatory setting. 5. We will repeat a chest x-ray now to rule out any underlying pneumothorax or worsening of pneumonia versus CHF 6. Continue IV antibiotics. 7. Continue IV steroids, DuoNeb nebulizer treatments. 8. We will give Lovenox for DVT prophylaxis as well as stroke prophylaxis. 9. Reviewed with the RN and video visit made. Critical Care: Critically Ill Patient Time spent with patient (mins): 45 Copy Copies To 1: ABDIAS NGUYEN MD, HARI P MD Jan 26, 2021 10:14
[2021-01-26] MEDS ORDERED: DIGOXIN 0.25 MG/ML (LANOXIN) 2 ML AMP IV ONE (10:15)
--- NOTE | 2021-01-26 10:23 | Diagnostic Imaging Report ---
INDICATION: Respiratory distress Comparison with 01/25/2021 chest x-ray. FINDINGS: Portable chest again shows ET tube, NG tube and right central line in good position. Patchy bilateral infiltrates are again demonstrated without significant change. There is good aeration noted bilaterally. The heart is mildly enlarged. Probable small left basilar. Pulmonary vasculature again appears slightly prominent. IMPRESSION: 1. Support lines in good position. 2. The patchy bilateral infiltrates with prominent pulmonary vasculature appears essentially unchanged. Dictated by: Dictated on workstation # [id number]
[2021-01-26] MEDS ORDERED: ENOXAPARIN 100 MG/1 ML (LOVENOX) SYR SC SCH (10:45)
--- NOTE | 2021-01-26 10:48 | Progress Note - Hospitalist ---
Subjective HPI/CC On Admission Date Seen by Provider: Jan 26, 2021 Time Seen by Provider: 10:30 Subjective/Events-last exam Patient seen and examined at bedside Patient refused to wear BiPAP and has not worn it for a long time Check meds and labs Transition to atrial fibrillation in the 170s last night placed on a Cardizem drip Digoxin and multiple IV medications were ordered Dr. Fulton consulted He was found down and intubated in the ER Has chronic COPD 4 L of oxygen at home Classic case of CO2 narcosis Focused Exam Lactate Level 01/25/21 21:10: Lactic Acid Level 2.53*H 01/25/21 23:10: Lactic Acid Level 2.64*H 01/27/21 03:55: Lactic Acid Level 1.88 Lactic Acid Level Laboratory Tests Test 01/27/21 03:55 Lactic Acid Level 1.88 MMOL/L (0.50-2.00) Objective Exam Vital Signs Vital Signs Date Time Temp Pulse Resp B/P (MAP) Pulse Ox O2 Delivery O2 Flow Rate FiO2 01/27/21 05:24 117 101/74 01/27/21 04:00 93 Mechanical Ventilator 45 01/27/21 04:00 16 45.00 01/26/21 23:42 36.2 Capillary Refill : Less Than 3 Seconds General Appearance: No Apparent Distress, WD/WN, Chronically ill, Obese, Other (Sedated and intubated) Respiratory: No Accessory Muscle Use, No Respiratory Distress Cardiovascular: Irregularly Irregular, Tachycardia Results/Procedures Lab Laboratory Tests 01/27/21 03:55 Patient resulted labs reviewed. Assessment/Plan Assessment and Plan Assess & Plan/Chief Complaint Assessment: Acute on chronic respiratory failure Ventilator dependence CO2 narcosis Noncompliant with BiPAP New onset atrial fibrillation with rapid ventricular response Obesity BMI 42 Plan: Ventilator Dr. Fulton consult Atrial fibrillation management Oral anticoagulation for stroke prophylaxis Critical Care Critically Ill Patient VIJAYA HARRELL Jan 26, 2021 10:48
--- NOTE | 2021-01-26 11:06 | Consultation-Cardiology ---
HPI-Cardiology Cardiology Consultation: Date of Consultation 01/26/21 Time Seen by a Provider: 10:50 Date of Admission 01-25-21 Attending Physician Pam Recio MD Admitting Physician [place] Consulting Physician Nando Fulton MD HPI: Chief Complaint: A-fib with RVR Mr. Baxter is a 60 yr old male who has been admitted to ICU 10 from the ED with resp failure. His is at the bedside. She reports he has had increased SOB and somolence over the last 2 days. She reports this morning he was sitting in his recliner slumped to the side and had been incontinent of urine. She reports she was unable to get him to wake up so she called EMS. She denies him having any fever or chills. She reports he has a chronic cough, which is unchanged. She denies him c/o CP or palpitations. He is currently intubated and sedate. reports he has not been compliant with his medications and has missed several doses. Review of Systems-Cardiology Review of Systems Other comments Unable to obtain d/t intubation and sedation [id number]-[id number]-[id number] Hx Patient Social History Living Status: Lives with Smoking Status: Unknown if Ever Smoked 2nd Hand Smoke Exposure: Yes Have you traveled recently?: No Alcohol Use?: No Pt feels they are or have been: No Immunizations Up To Date Tetanus Booster (TDap): Unknown Date of Pneumonia Vaccine: Jul 19, 2017 Date of Influenza Vaccine: Jul 19, 2017 Past Medical History PMH As described under Assessment. Family Medical History Family Medical History: Does not report fam h/o early CAD or SCD Allergies and Home Medications Allergies Coded Allergies: gabapentin (Verified Adverse Reaction, Mild, UPSET STOMACH, 10/27/18) naproxen (Verified Adverse Reaction, Mild, GI UPSET, 10/27/18) Patient Home Medication List Acetaminophen (Tylenol Extra Strength) 500 Mg Tablet, 1,000 MG PO Q8H PRN for PAIN-MILD (1-4), (Reported) Entered as Reported by: KEELEY LINCOLN on 01/25/21 1525 Last Action: Reviewed Albuterol Sulfate (Proair Hfa) 1 Puff Puff, 2 PUFF IH Q4H PRN for SHORTNESS OF BREATH, (Reported) Entered as Reported by: CLARIBEL SHIN on 07/17/17 1022 Last Action: Reviewed Apixaban (Eliquis) 5 Mg Tablet, 5 MG PO BID, (Reported) Entered as Reported by: CLARIBEL SHIN on 07/25/17 1527 Last Action: Reviewed Diltiazem HCl (Diltiazem ER) 180 Mg Capsule.er, 360 MG PO DAILY, (Reported) Entered as Reported by: KEELEY LINCOLN on 01/25/21 1525 Last Action: Reviewed Fluticasone/Umeclidin/Vilanter (Trelegy Ellipta 200-62.5-25) 1 Each Blst.w.dev, 1 PUFF INH DAILY, (Reported) Entered as Reported by: KEELEY LINCOLN on 01/25/21 152 Last Action: Reviewed Furosemide (Furosemide) 40 Mg Tablet, 40 MG PO DAILY PRN for FLUID RETENTION, (Reported) Entered as Reported by: ALMA MELO on 07/16/18 1323 Last Action: Reviewed Metoprolol Succinate (Metoprolol Succinate) 100 Mg Tab.er.24h, 100 MG PO DAILY, (Reported) Entered as Reported by: ALMA MELO on 10/27/18 0812 Last Action: Reviewed Potassium Chloride (Potassium Chloride) 10 Meq Capsule.er, 10 MEQ PO BID, (Reported) Entered as Reported by: SHAZIA ALICEA on 08/24/18 1021 Last Action: Reviewed Propafenone HCl (Propafenone HCl) 225 Mg Tablet, 225 MG PO 0600.1400,2200, (Reported) Entered as Reported by: TENISHA SALDIVAR on 08/24/18 2049 Last Action: Reviewed Tizanidine HCl (Tizanidine HCl) 4 Mg Tablet, 4 MG PO DAILY PRN for MUSCLE SPASMS, (Reported) Entered as Reported by: KEELEY LINCOLN on 01/25/21 1525 Last Action: Reviewed Discontinued Medications Diltiazem HCl (Diltiazem ER) 180 Mg Tab.er.24h, 180 MG PO DAILY, (Reported) Discontinued Reason: Duplicate Order Entered as Reported by: SHAZIA ALICEA on 08/24/18 1021 Last Action: Discontinued Fluticasone/Vilanterol (Breo Ellipta 100-25 Mcg INH) 1 Each Blst.w.dev, 1 EACH IH DAILY, (Reported) Discontinued Reason: No Longer Taking Entered as Reported by: SHAZIA ALICEA on 08/24/18 1021 Last Action: Discontinued Hydrocodone Bit/Acetaminophen (HYDROcodone/APAP 7.5/325 TAB) 1 Each Tablet, 1 TAB PO Q4H Discontinued Reason: No Longer Taking Prescribed by: MATT SEAY on 11/04/18 1143 Last Action: Discontinued Physical Exam-Cardiology Physical Exam Vital Signs/I&O 01/28/21 01/28/21 01/28/21 01/28/21 22:00 22:40 22:46 23:00 Pulse 101 140 97 122 Resp 19 20 19 B/P (MAP) 111/80 109/65 116/72 Pulse Ox 92 95 92 O2 Delivery Mechanical Ventilator Mechanical Ventilator O2 Flow Rate 50.00 50.00 FiO2 50 01/28/21 01/28/21 01/29/21 01/29/21 23:21 23:59 00:00 01:00 Temp 37.0 Pulse 129 110 Resp 20 B/P (MAP) 115/79 Pulse Ox 90 92 O2 Delivery Mechanical Ventilator Mechanical Ventilator O2 Flow Rate 50.00 FiO2 50 01/29/21 01/29/21 01/29/21 01/29/21 01:00 02:00 02:02 03:00 Pulse 98 112 129 85 Resp 20 21 20 B/P (MAP) 114/66 118/73 115/79 109/72 Pulse Ox 92 92 93 O2 Delivery Mechanical Ventilator Mechanical Ventilator Mechanical Ventilator O2 Flow Rate 50.00 50.00 50.00 01/29/21 01/29/21 01/29/21 01/29/21 03:05 04:00 04:00 05:00 Pulse 84 107 94 Resp 20 20 20 B/P (MAP) 109/78 112/67 Pulse Ox 94 91 90 91 O2 Delivery Mechanical Ventilator Mechanical Ventilator Mechanical Ventilator O2 Flow Rate 50.00 50.00 FiO2 50 50 01/29/21 01/29/21 01/29/21 01/29/21 05:31 06:00 06:36 07:00 Pulse 84 89 85 81 Resp 20 20 B/P (MAP) 121/67 123/72 111/66 Pulse Ox 92 93 O2 Delivery Mechanical Ventilator Mechanical Ventilator O2 Flow Rate 50.00 50.00 01/29/21 01/29/21 01/29/21 01/29/21 07:04 08:00 08:00 08:01 Temp 36.6 Pulse 89 93 Resp 20 20 B/P (MAP) 116/74 Pulse Ox 93 92 92 O2 Delivery Mechanical Ventilator Mechanical Ventilator O2 Flow Rate 50.00 FiO2 50 50 01/29/21 09:00 Pulse 93 Resp 20 B/P (MAP) 118/68 Pulse Ox 92 O2 Delivery Mechanical Ventilator O2 Flow Rate 50.00 01/29/21 00:00 Intake Total 640 ml Output Total 2575 ml Balance -1935 ml Capillary Refill : Less Than 3 Seconds Constitutional: other (intubated and sedated) Neck: No carotid bruit; carotid pulses are 2 + bilaterally Respiratory: chest expansion is symmetric, chest is bilaterally symmetric, rhonchi (scattered), other (intubated) Cardiovascular: irregularly irregular, tachycardia Extremities: other (bilat pitting and non-pitting edema) Neurologic/Psychiatric: other (sedated, unable to co-operate with neuro exam) Skin: other (dry, flaky LE with discoloration of venous stasis) Data Review Labs Laboratory Tests 01/28/21 11:36: Glucometer 209H 01/28/21 17:20: Glucometer 198H 01/28/21 23:16: Glucometer 230H 01/29/21 04:15: White Blood Count 9.7, Red Blood Count 5.26, Hemoglobin 14.5, Hematocrit 47, Mean Corpuscular Volume 89, Mean Corpuscular Hemoglobin 28, Mean Corpuscular Hemoglobin Concent 31L, Red Cell Distribution Width 15.2H, Platelet Count 190, Mean Platelet Volume 11.5, Immature Granulocyte % (Auto) 1, Neutrophils (%) (Auto) 90H, Lymphocytes (%) (Auto) 3L, Monocytes (%) (Auto) 6, Eosinophils (%) (Auto) 0, Basophils (%) (Auto) 0, Neutrophils # (Auto) 8.7H, Lymphocytes # (Auto) 0.3L, Monocytes # (Auto) 0.6, Eosinophils # (Auto) 0.0, Basophils # (Auto) 0.0, Immature Granulocyte # (Auto) 0.1, Blood Gas Puncture Site RIGHT RADIAL, Blood Gas Patient Temperature 37.0, Arterial Blood pH 7.40, Arterial Blood Partial Pressure CO2 66H, Arterial Blood Partial Pressure O2 74L, Arterial Blood HCO3 40H, Arterial Blood Total CO2 41.7*H, Arterial Blood Oxygen Saturation 93L, Arterial Blood Base Excess 14.1H, Jair Test YES-POS, Blood Gas Ventilator Setting YES, Blood Gas Inspired Oxygen 50%, Sodium Level 136, Potassium Level 4.8, Chloride Level 94L, Carbon Dioxide Level 36H, Anion Gap 6, Blood Urea Nitrogen 28H, Creatinine 0.86, Estimat Glomerular Filtration Rate 90, BUN/Creatinine Ratio 33, Glucose Level 231H, Calcium Level 8.4L, Corrected Calcium 9.0, Phosphorus Level 2.9, Magnesium Level 2.2, Total Bilirubin 0.7, Aspartate Amino Transf (AST/SGOT) 51H, Alanine Aminotransferase (ALT/SGPT) 79H, Alkaline Phosphatase 52, Total Protein 5.9L, Albumin 3.2 Microbiology 01/25/21 Gram Stain - Final, Complete 01/25/21 Sputum Culture - Final, Complete Haemophilus influenza Usual upper respiratory andrew 01/25/21 Blood Culture - Preliminary, Resulted No growth 01/25/21 Urine Culture - Final, Complete NO GROWTH Radiology NAME: KAYA BAXTER [facility] REC#: [id number] PT STATUS: ADM IN : 1960 PHYSICIAN: FER VAZQUEZ MD ADMIT DATE: 01/25/21/ICU Signed Date of Exam:01/25/21 US VENOUS LOWER EXT BRIAN PROCEDURE: US Venous Lower Ext Brian. TECHNIQUE: Multiple real-time grayscale images were obtained over the lower extremities in various projections, bilaterally. Additional duplex Doppler and color Doppler images were also obtained. INDICATION: Lower extremity swelling and pain. COMPARISON: None. FINDINGS: Visualized deep and superficial venous system is patent. There is no DVT. IMPRESSION: Negative lower extremity venous Doppler. Dictated by: Dictated on workstation # [id number] Dict: 01/25/21 1513 Trans: 01/25/21 1546 [id number] Interpreted by: ALENA JACK Electronically signed by: ALENA JACK 01/25/21 1546 NAME: KAYA BAXTER [facility] REC#: [id number] PT STATUS: ADM IN : 1960 PHYSICIAN: FAIZA MURGUIA MD ADMIT DATE: 01/25/21/ICU Draft Date of Exam:01/26/21 CHEST 1 VIEW, AP/PA ONLY INDICATION: Respiratory distress Comparison with 01/25/2021 chest x-ray. FINDINGS: Portable chest again shows ET tube, NG tube and right central line in good position. Patchy bilateral infiltrates are again demonstrated without significant change. There is good aeration noted bilaterally. The heart is mildly enlarged. Probable small left basilar. Pulmonary vasculature again appears slightly prominent. IMPRESSION: 1. Support lines in good position. 2. The patchy bilateral infiltrates with prominent pulmonary vasculature appears essentially unchanged. Dictated on workstation # [id number] Dict: 01/26/21 1018 Trans: 01/26/21 1023 CVB [id number] Interpreted by: TERA JOHNSON MD Electronically signed by: ECG Impression ECG Initial ECG Impression: Atrial Fibrillation w/RVR A/P-Cardiology Assessment/Admission Diagnosis Pneumonia with resp failure requiring intubation - management per medical services and eICU P. A-fib/flutter - Typical atrial flutter ablation by Dr. Rankin on 08/24/2018 - Recurrent A Fib/Fl on 08/17/20 with RVR - OAC with Eliquis - Currently a-fib with RVR - Cardizem gtt Echocardiogram done on 07/17/[address] Rankin showed normal LV size and function. There is mild concentric hypertrophy. EF 55-65 percent. Normal RV size and function. No significant valvular heart disease HTN Tobaccoism COPD Obesity Bilat LE swelling and chronic stasis dermatitis fo the legs Discussion and Recomendations Pneumonia with resp failure requiring intubation A-fib with RVR - Cardizem gtt - start IV BB for rate control Start Eliquis 5mg BID for stroke prophylaxis Echocardiogram to eval structure and function Monitor lab closely Replace electrolytes as indicated Further recs will be based on his hospital course Spoke with his Justine regarding plan of care We would like to thank medical services for this consult CASANDRA GERARDO Jan 26, 2021 11:06
[2021-01-26] MEDS ORDERED: APIXABAN 5 MG (ELIQUIS) TABLET PO ONE (11:30)
[2021-01-26] MEDS ORDERED: meTOprolol 5 MG/5 ML (LOPRESSOR) VIAL IV ONE (11:30)
[2021-01-26] MEDS: meTOprolol 5 MG/5 ML (LOPRESSOR) VIAL IV SCH ×5 (11:44→23:36)
[2021-01-26] MEDS: fentaNYL DRIP PRE-MIX 250 ML IV SCH ×2 (13:45→19:28)
[2021-01-26 14:42] VITALS: BP 115/62
--- NOTE | 2021-01-26 17:38 | Consultation-Cardiology ---
HPI-Cardiology Cardiology Consultation: Date of Consultation 01/26/21 Time Seen by a Provider: 16:30 Date of Admission Attending Physician Pam Recio MD Admitting Physician [place]/Replaced By [facility] Consulting Physician EULA COLLAZO MD, MA, FACP, FACC, [facility], CCDS HPI: Chief Complaint: A-fib with RVR Mr. Baxter is a 60 yr old male who has been admitted to ICU 10 from the ED with resp failure. His is at the bedside. She reports he has had increased SOB and somolence over the last 2 days. She reports this morning he was sitting in his recliner slumped to the side and had been incontinent of urine. She reports she was unable to get him to wake up so she called EMS. She denies him having any fever or chills. She reports he has a chronic cough, which is unchanged. She denies him c/o CP or palpitations. He is currently intubated and sedate. reports he has not been compliant with his medications and has missed several doses. [id number] Hx Patient Social History Living Status: Lives with Smoking Status: Unknown if Ever Smoked 2nd Hand Smoke Exposure: Yes Have you traveled recently?: No Alcohol Use?: No Pt feels they are or have been: No Immunizations Up To Date Tetanus Booster (TDap): Unknown Date of Pneumonia Vaccine: Jul 19, 2017 Date of Influenza Vaccine: Jul 19, 2017 Past Medical History PMH As described under Assessment. Family Medical History Family Medical History: Does not report fam h/o early CAD or SCD Allergies and Home Medications Allergies Coded Allergies: gabapentin (Verified Adverse Reaction, Mild, UPSET STOMACH, 10/27/18) naproxen (Verified Adverse Reaction, Mild, GI UPSET, 10/27/18) Patient Home Medication List Home Medication List Reviewed: Yes Acetaminophen (Tylenol Extra Strength) 500 Mg Tablet, 1,000 MG PO Q8H PRN for PAIN-MILD (1-4), (Reported) Entered as Reported by: KEELEY LINCOLN on 01/25/21 1525 Last Action: Reviewed Albuterol Sulfate (Proair Hfa) 1 Puff Puff, 2 PUFF IH Q4H PRN for SHORTNESS OF BREATH, (Reported) Entered as Reported by: CLARIBEL SHIN on 07/17/17 1022 Last Action: Reviewed Apixaban (Eliquis) 5 Mg Tablet, 5 MG PO BID, (Reported) Entered as Reported by: CLARIBEL SHIN on 07/25/17 1527 Last Action: Reviewed Diltiazem HCl (Diltiazem ER) 180 Mg Capsule.er, 360 MG PO DAILY, (Reported) Entered as Reported by: KEELEY LINCOLN on 01/25/21 1525 Last Action: Reviewed Fluticasone/Umeclidin/Vilanter (Trelegy Ellipta 200-62.5-25) 1 Each Blst.w.dev, 1 PUFF INH DAILY, (Reported) Entered as Reported by: KEELEY LINCOLN on 01/25/21 152 Last Action: Reviewed Furosemide (Furosemide) 40 Mg Tablet, 40 MG PO DAILY PRN for FLUID RETENTION, (Reported) Entered as Reported by: ALMA MELO on 07/16/18 1323 Last Action: Reviewed Metoprolol Succinate (Metoprolol Succinate) 100 Mg Tab.er.24h, 100 MG PO DAILY, (Reported) Entered as Reported by: ALMA MELO on 10/27/18 0812 Last Action: Reviewed Potassium Chloride (Potassium Chloride) 10 Meq Capsule.er, 10 MEQ PO BID, (Repo rted) Entered as Reported by: SHAZIA ALICEA on 08/24/18 1021 Last Action: Reviewed Propafenone HCl (Propafenone HCl) 225 Mg Tablet, 225 MG PO 0600.1400,2200, (Reported) Entered as Reported by: TENISHA SALDIVAR on 08/24/18 2049 Last Action: Reviewed Tizanidine HCl (Tizanidine HCl) 4 Mg Tablet, 4 MG PO DAILY PRN for MUSCLE SPASMS, (Reported) Entered as Reported by: KEELEY LINCOLN on 01/25/21 1525 Last Action: Reviewed Discontinued Medications Diltiazem HCl (Diltiazem ER) 180 Mg Tab.er.24h, 180 MG PO DAILY, (Reported) Discontinued Reason: Duplicate Order Entered as Reported by: SHAZIA ALICEA on 08/24/18 1021 Last Action: Discontinued Fluticasone/Vilanterol (Breo Ellipta 100-25 Mcg INH) 1 Each Blst.w.dev, 1 EACH IH DAILY, (Reported) Discontinued Reason: No Longer Taking Entered as Reported by: SHAZIA ALICEA on 08/24/18 1021 Last Action: Discontinued Hydrocodone Bit/Acetaminophen (HYDROcodone/APAP 7.5/325 TAB) 1 Each Tablet, 1 TAB PO Q4H Discontinued Reason: No Longer Taking Prescribed by: MATT SEAY on 11/04/18 1143 Last Action: Discontinued Physical Exam-Cardiology Physical Exam Vital Signs/I&O 01/26/21 01/26/21 01/26/21 01/26/21 06:00 06:35 07:00 07:00 Pulse 89 83 85 84 Resp 21 B/P (MAP) 119/65 119/66 Pulse Ox 93 93 92 O2 Delivery Mechanical Ventilator Mechanical Ventilator O2 Flow Rate 35.00 35.00 FiO2 35 01/26/21 01/26/21 01/26/21 01/26/21 08:00 08:28 08:40 09:00 Temp 37.4 Pulse 90 87 Resp 21 B/P (MAP) 116/65 113/67 Pulse Ox 92 91 92 O2 Delivery Mechanical Ventilator Mechanical Ventilator Mechanical Ventilator O2 Flow Rate 35.00 35.00 FiO2 35 01/26/21 01/26/21 01/26/21 01/26/21 09:20 09:57 10:00 11:00 Pulse 99 165 95 138 Resp 21 21 20 B/P (MAP) 118/67 118/84 118/64 Pulse Ox 92 92 92 O2 Delivery Mechanical Ventilator Mechanical Ventilator O2 Flow Rate 35.00 35.00 FiO2 35 01/26/21 01/26/21 01/26/21 01/26/21 11:55 12:00 12:00 13:00 Temp 37.4 Pulse 73 73 Resp 20 B/P (MAP) 121/64 Pulse Ox 92 92 O2 Delivery Mechanical Ventilator Mechanical Ventilator O2 Flow Rate 35.00 FiO2 35 01/26/21 01/26/21 01/26/21 01/26/21 13:00 13:31 14:00 14:42 Pulse 70 68 80 74 Resp 20 18 20 B/P (MAP) 111/60 117/62 144/75 Pulse Ox 93 90 92 O2 Delivery Mechanical Ventilator Mechanical Ventilator O2 Flow Rate 35.00 35.00 FiO2 35 01/26/21 01/26/21 01/26/21 01/26/21 15:00 15:38 16:00 16:00 Temp 36.5 Pulse 75 73 Resp 20 20 B/P (MAP) 113/64 118/64 Pulse Ox 92 92 93 O2 Delivery Mechanical Ventilator Mechanical Ventilator Mechanical Ventilator O2 Flow Rate 35.00 35.00 FiO2 35 01/26/21 00:00 Intake Total 2020 ml Output Total 750 ml Balance 1270 ml Capillary Refill : Less Than 3 Seconds Constitutional: other (intubated and sedated) Neck: No carotid bruit; carotid pulses are 2 + bilaterally Respiratory: chest expansion is symmetric, chest is bilaterally symmetric, rhonchi (scattered), other (intubated) Cardiovascular: irregularly irregular, tachycardia Extremities: other (bilat pitting and non-pitting edema) Neurologic/Psychiatric: other (sedated, unable to co-operate with neuro exam) Skin: other (dry, flaky LE with discoloration of venous stasis) Data Review Labs Laboratory Tests 01/25/21 18:10: Lactic Acid Level 3.14*H 01/25/21 21:10: Lactic Acid Level 2.53*H 01/25/21 23:10: Lactic Acid Level 2.64*H 01/26/21 05:00: White Blood Count 11.0, Red Blood Count 4.95, Hemoglobin 13.4, Hematocrit 45, Mean Corpuscular Volume 91, Mean Corpuscular Hemoglobin 27, Mean Corpuscular Hemoglobin Concent 30L, Red Cell Distribution Width 15.1H, Platelet Count 154, Mean Platelet Volume 11.5, Immature Granulocyte % (Auto) 1, Neutrophils (%) (Auto) 87H, Lymphocytes (%) (Auto) 7L, Monocytes (%) (Auto) 5, Eosinophils (%) (Auto) 0, Basophils (%) (Auto) 0, Neutrophils # (Auto) 9.6H, Lymphocytes # (Auto) 0.8L, Monocytes # (Auto) 0.5, Eosinophils # (Auto) 0.0, Basophils # (Auto) 0.0, Immature Granulocyte # (Auto) 0.1, Blood Gas Puncture Site RIGHT RADIAL, Blood Gas Patient Temperature 37.1, Arterial Blood pH 7.39, Arterial Blood Partial Pressure CO2 67H, Arterial Blood Partial Pressure O2 68L, Arterial Blood HCO3 39H, Arterial Blood Total CO2 41.1*H, Arterial Blood Oxygen Saturation 92L, Arterial Blood Base Excess 13.5H, Jair Test YES-POS, Blood Gas Ventilator Setting YES, Blood Gas Inspired Oxygen 35%, Sodium Level 139, Potassium Level 4.6, Chloride Level 95L, Carbon Dioxide Level 35H, Anion Gap 9, Blood Urea Nitrogen 18, Creatinine 0.80, Estimat Glomerular Filtration Rate 98, BUN/Creatinine Ratio 23, Glucose Level 188H, Calcium Level 9.1, Corrected Calcium 9.7, Phosphorus Level 2.0L, Magnesium Level 2.0, Total Bilirubin 0.6, Aspartate Amino Transf (AST/SGOT) 10, Alanine Aminotransferase (ALT/SGPT) 13, Alkaline Phosphatase 65, Total Protein 6.3L, Albumin 3.3 01/26/21 11:15: Glucometer 202H 01/26/21 17:09: Glucometer 184H Microbiology 01/25/21 Gram Stain - Final, Resulted 01/25/21 Sputum Culture - Preliminary, Resulted 01/25/21 Blood Culture - Preliminary, Resulted No growth A/P-Cardiology Assessment/Admission Diagnosis Pneumonia with resp failure requiring intubation - management per medical services and eICU P. A-fib/flutter - Typical atrial flutter ablation by Dr. Rankin on 08/24/2018 - Recurrent A Fib/Fl on 08/17/20 with RVR - OAC with Eliquis - Currently a-fib with RVR - Cardizem gtt Echocardiogram done on 07/17/[address] Rankin showed normal LV size and function. There is mild concentric hypertrophy. EF 55-65 percent. Normal RV size and function. No significant valvular heart disease HTN Tobaccoism COPD Obesity Bilat LE swelling and chronic stasis dermatitis fo the legs Discussion and Recomendations Pneumonia with resp failure requiring intubation A-fib with RVR - Cardizem gtt - start IV BB for rate control Start Eliquis 5mg BID for stroke prophylaxis Echocardiogram to eval structure and function Monitor lab closely Replace electrolytes as indicated Further recs will be based on his hospital course Spoke with his Justine regarding plan of care We would like to thank medical services for this consult EULA COLLAZO MD FACP [facility] CCDS Jan 26, 2021 17:38
[2021-01-26 18:59] VITALS: BP 123/67
[2021-01-26] MEDS: APIXABAN 5 MG (ELIQUIS) TABLET PO SCH (20:02)
[2021-01-26 23:12] VITALS: BP 114/62
[2021-01-27] MEDS: PROPOFOL DRIP (ICU) 100 ML IV SCH ×7 (01:24→22:34)
[2021-01-27] MEDS: LACTATED RINGERS 1,000 ML IV SCH ×4 (01:24→17:35)
[2021-01-27] MEDS: RT-ALBUTEROL/IPRATROPIUM 3 ML (DUONEB) VIAL INH SCH ×6 (02:29→22:27)
[2021-01-27 02:30] VITALS: BP 121/64
[2021-01-27] MEDS: NOREPINEPHRINE 8 MG/250 ML 250 ML IV SCH ×3 (02:45→23:58)
[2021-01-27] MEDS: meTOprolol 5 MG/5 ML (LOPRESSOR) VIAL IV SCH ×7 (03:12→20:52)
[2021-01-27] MEDS: VASOPRESSIN INJECTION 20 UNIT in NS (IVPB) 100 ML IV SCH ×2 (03:17→16:18)
[2021-01-27] MEDS: dilTIAZem DRIP PRE-MIX 125 ML IV SCH ×2 (03:52→15:23)
[2021-01-27 03:59] LABS: BASOPHILS % (AUTO) 0 % (0-10); EOSINOPHILS % (AUTO) 0 % (0-10); HEMATOCRIT 44 % (40-54); HEMOGLOBIN 13.2 g/dL (13.3-17.7); LYMPHOCYTES # (AUTO) 0.6 10^3/uL (1.0-4.0); LYMPHOCYTES % (AUTO) 5 % (12-44); MEAN CORPUSCULAR HEMOGLOBIN 28 pg (25-34); MEAN CORPUSCULAR HGB CONC 30 g/dL (32-36); MEAN CORPUSCULAR VOLUME 91 fL (80-99); MEAN PLATELET VOLUME 11.4 fL (9.0-12.2); MONOCYTES # (AUTO) 0.5 10^3/uL (0.0-1.0); MONOCYTES % (AUTO) 5 % (0-12); NEUTROPHILS # (AUTO) 10.1 10^3/uL (1.8-7.8); NEUTROPHILS % (AUTO) 90 % (42-75); PLATELET COUNT 171 10^3/uL (130-400); WHITE BLOOD COUNT 11.3 10^3/uL (4.3-11.0)
[2021-01-27 04:07] LABS: ALBUMIN 3.1 GM/DL (3.2-4.5); POTASSIUM 4.5 MMOL/L (3.6-5.0)
[2021-01-27 04:07] LABS: ABG BASE EXCESS 13.5 MMOL/L (-2.5-2.5); ABG OXYGEN SATURATION 91 % (94-100); ABG PCO2 65 MMHG (35-45); ABG PH 7.39 (7.37-7.43); ABG PO2 64 MMHG (79-93)
[2021-01-27 04:08] LABS: CALCIUM 8.7 MG/DL (8.5-10.1)
[2021-01-27 04:09] LABS: TOTAL PROTEIN 5.8 GM/DL (6.4-8.2)
[2021-01-27 04:10] LABS: ABG TCO2 41.1 MMOL/L (21.0-31.0); ALLENS TEST YES-POS
[2021-01-27 04:11] LABS: INSPIRED O2 45%; PATIENT TEMP 36.6; VENTILATOR YES
[2021-01-27 04:11] LABS: BILIRUBIN,TOTAL 0.4 MG/DL (0.1-1.0)
[2021-01-27 04:13] LABS: CREATININE SERUM 0.75 MG/DL (0.60-1.30); PHOSPHORUS 2.6 MG/DL (2.3-4.7)
[2021-01-27] MEDS: KCL 20 MEQ TAB (K-DUR) PO SCH (05:24)
[2021-01-27] MEDS: POTASSIUM CL 10MEQ/50ML IVPB 50 ML IV SCH (05:24)
[2021-01-27] MEDS: MAGNESIUM 1 GM/100 ML IVPB 100 ML IV SCH (05:24)
[2021-01-27] MEDS: methylPREDNISolone 40 MG/ML (Solu-MEDROL) VIAL IV SCH ×3 (05:49→17:35)
[2021-01-27] MEDS: CEFEPIME INJECTION 1,000 MG in WATER (STERILE) FOR INJECTION 10 ML IV SCH ×3 (05:49→17:35)
[2021-01-27 06:54] VITALS: BP 102/54
--- NOTE | 2021-01-27 08:05 | Progress Note - Hospitalist ---
Subjective HPI/CC On Admission Date Seen by Provider: Jan 27, 2021 Time Seen by Provider: 10:30 Subjective/Events-last exam Patient still intubated at bedside Patient went back into atrial fibrillation Focused Exam Lactate Level 01/25/21 21:10: Lactic Acid Level 2.53*H 01/25/21 23:10: Lactic Acid Level 2.64*H 01/27/21 03:55: Lactic Acid Level 1.88 Objective Exam Vital Signs Vital Signs Date Time Temp Pulse Resp B/P (MAP) Pulse Ox O2 Delivery O2 Flow Rate FiO2 01/28/21 05:00 111 20 107/62 91 Mechanical Ventilator 60.00 01/28/21 04:00 36.6 01/28/21 04:00 60 Capillary Refill : Less Than 3 Seconds General Appearance: Chronically ill, Obese, Other (Sedated and intubated) Respiratory: No Accessory Muscle Use, No Respiratory Distress, Decreased Breath Sounds Cardiovascular: Irregularly Irregular, Tachycardia Results/Procedures Lab Laboratory Tests 01/28/21 04:35 Patient resulted labs reviewed. Assessment/Plan Assessment and Plan Assess & Plan/Chief Complaint Assessment: Acute on chronic respiratory failure Ventilator dependence CO2 narcosis Noncompliant with BiPAP New onset atrial fibrillation with rapid ventricular response Obesity BMI 42 Plan: Ventilator Dr. Fulton consult Atrial fibrillation management Oral anticoagulation for stroke prophylaxis 01/27/2021: Supportive care Ventilator management appreciated Atrial fibrillation with RVR management per cardiology Critical Care Critically Ill Patient VIJAYA HARRELL DO Jan 27, 2021 08:05
[2021-01-27] MEDS: PANTOPRAZOLE 40 MG (PROTONIX) VIAL IV SCH (08:16)
[2021-01-27] MEDS: APIXABAN 5 MG (ELIQUIS) TABLET PO SCH ×2 (08:16→20:51)
[2021-01-27] MEDS: MICONAZOLE 2% POWDER (DESENEX AF) 90 GM TOP SCH ×2 (08:17→20:52)
--- NOTE | 2021-01-27 08:34 | Tele-ICU Progress Note ---
Subjective Date Seen by a Provider: Jan 27, 2021 Time Seen by a Provider: 08:26 Subjective/Events-last exam Patient yesterday developed atrial fibrillation with rapid ventricular rate. Started on a digoxin, diltiazem drip and subsequently cardiology has seen and started on IV metoprolol. Currently his heart rate is around 85-97 with atrial fibrillation. His blood gases are slightly better with pH 7.39 PCO2 65 on a 45% FiO2 but I do not think he is ready for weaning yet. He is afebrile. He is on a full dose Lovenox started yesterday but started also on apixaban and Lovenox has been discontinued. Video visit made and discussed with the [employer]. Review of Systems ROS PER ATTENDING PHYSICIAN Sepsis Event Evaluation Height, Weight, BMI Height: 6'2.00" Weight: 263lbs. 3.0oz. 119.157741df; 40.12 BMI Method:Stated Focused Exam Lactate Level 01/25/21 21:10: Lactic Acid Level 2.53*H 01/25/21 23:10: Lactic Acid Level 2.64*H 01/27/21 03:55: Lactic Acid Level 1.88 Exam Exam Patient acknowledged, consented, and participated in this virtual visit which was conducted using real time audio/video Vital Signs Date Time Temp Pulse Resp B/P (MAP) Pulse Ox O2 Delivery O2 Flow Rate FiO2 01/27/21 08:00 90 20 107/56 91 Mechanical Ventilator 45.00 01/27/21 07:45 36.3 01/27/21 07:40 92 Mechanical Ventilator 45 01/27/21 07:00 78 21 100/56 92 Mechanical Ventilator 45.00 01/27/21 07:00 105 01/27/21 06:54 65 20 92 45 01/27/21 06:00 62 20 103/55 92 Mechanical Ventilator 45.00 01/27/21 05:24 117 101/74 01/27/21 05:00 102 16 101/74 93 Mechanical Ventilator 45.00 01/27/21 04:00 93 Mechanical Ventilator 45 01/27/21 04:00 117 16 101/74 93 Mechanical Ventilator 45.00 01/27/21 03:00 70 20 114/63 91 Mechanical Ventilator 45.00 01/27/21 02:30 67 20 94 45 01/27/21 02:00 70 20 116/63 95 Mechanical Ventilator 45.00 01/27/21 01:24 69 114/62 01/27/21 01:00 70 01/27/21 01:00 67 21 115/64 94 Mechanical Ventilator 45.00 01/27/21 00:00 69 20 112/61 92 Mechanical Ventilator 45.00 01/26/21 23:59 93 Mechanical Ventilator 45 01/26/21 23:42 36.2 Mechanical Ventilator 45.00 01/26/21 23:12 69 20 94 45 01/26/21 23:00 71 20 117/62 94 Mechanical Ventilator 45.00 01/26/21 22:00 73 20 116/64 94 Mechanical Ventilator 45.00 01/26/21 21:24 154 98/61 01/26/21 21:00 74 20 117/66 94 Mechanical Ventilator 45.00 01/26/21 20:00 90 Mechanical Ventilator 35 01/26/21 20:00 141 15 115/70 92 Mechanical Ventilator 45.00 01/26/21 20:00 36.9 01/26/21 19:29 36.8 154 20 98/61 91 Mechanical Ventilator 45.00 01/26/21 19:00 68 01/26/21 18:59 74 20 68 35 01/26/21 18:03 71 119/66 01/26/21 18:00 68 20 119/66 92 Mechanical Ventilator 35.00 01/26/21 17:00 73 20 124/64 93 Mechanical Ventilator 35.00 01/26/21 16:00 93 Mechanical Ventilator 35 01/26/21 16:00 73 20 118/64 92 Mechanical Ventilator 35.00 01/26/21 15:38 36.5 01/26/21 15:00 75 20 113/64 92 Mechanical Ventilator 35.00 01/26/21 14:42 74 20 92 35 01/26/21 14:00 80 18 144/75 90 Mechanical Ventilator 35.00 01/26/21 13:31 68 117/62 01/26/21 13:00 70 20 111/60 93 Mechanical Ventilator 35.00 01/26/21 13:00 73 01/26/21 12:00 37.4 01/26/21 12:00 73 20 121/64 92 Mechanical Ventilator 35.00 01/26/21 11:55 92 Mechanical Ventilator 35 01/26/21 11:00 138 20 118/64 92 Mechanical Ventilator 35.00 01/26/21 10:00 95 21 118/84 92 Mechanical Ventilator 35.00 01/26/21 09:57 165 21 92 35 01/26/21 09:20 99 118/67 01/26/21 09:00 87 21 113/67 92 Mechanical Ventilator 35.00 01/26/21 08:40 37.4 01/26/21 08:28 91 Mechanical Ventilator 35 I & O 01/27/21 07:00 Intake Total 2210 ml Output Total 1050 ml Balance 1160 ml Height & Weight Height: 6'2.00" Weight: 263lbs. 3.0oz. 119.304290el; 40.12 BMI Method:Stated General Appearance: No Apparent Distress, WD/WN, Chronically ill, Obese, Other HEENT: PERRL/EOMI, Pharynx Normal Neck: Non Tender, Supple Respiratory: No Accessory Muscle Use, No Respiratory Distress Cardiovascular: Irregularly Irregular, Tachycardia Capillary Refill: Less Than 3 Seconds Gastrointestinal: normal bowel sounds, soft Extremity: Pedal Edema (4+ to level above knees bilateral.), Other (Venous stasis changes noted to bilateral lower extremities) Neurologic/Psychiatric: Alert, Oriented x3, Other (Unresponsive on arrival with occasional moaning. Later noted to react to endotracheal tube with chewing and slightly moving bilateral upper extremities.) Skin: Warm/Dry, Erythema (Erythematous to the knees bilaterally with gross edema and scaling. Small area of left lateral calf has pink wet-appearing skin from loss of overlying scaling, no discharge or drainage seen.) Other comments PE PER ATTENDING Results Lab Laboratory Tests 01/26/21 05:00 01/27/21 03:55 Meds REVIEWED Radiology CXR REVIEWED Assessment/Plan Assessment/Plan 1. Acute and chronic respiratory failure requiring mechanical ventilation. 2. COPD exacerbation 3. Bilateral pneumonia 4. Recurrence of atrial fibrillation with rapid ventricular rate 5. History of tobacco abuse 6. Hypertension currently stable. Recommendations 1. Continue cardiazem and metoprolol 2. Echo result pending 3. Cardiology consult appreciated 4. Continue current mechanical ventilatory setting and ready for weaning 5. CXR reviewed 6. Continue IV antibiotics. 7. Continue IV steroids, DuoNeb nebulizer treatments. 8. OAC with apixaban. 9. Reviewed with the RN and video visit made. Critical Care: Ventilator Management Time spent with patient (mins): 35 Copy Copies To 1: VIJAYA HARRELL HARI P MD Jan 27, 2021 08:34
[2021-01-27 11:15] VITALS: BP 100/62
--- NOTE | 2021-01-27 11:40 | Progress Note - Cardiology ---
Cardiology SOAP Progress Note Subjective: Intubated, on mech vent, unresponsive Objective: I&O/Vital Signs 01/26/21 01/26/21 01/27/21 01/27/21 23:42 23:59 00:00 01:00 Temp 36.2 Pulse 69 67 Resp 20 21 B/P (MAP) 112/61 115/64 Pulse Ox 93 92 94 O2 Delivery Mechanical Ventilator Mechanical Ventilator Mechanical Ventilator Mechanical Ventilator O2 Flow Rate 45.00 45.00 45.00 FiO2 45 01/27/21 01/27/21 01/27/21 01/27/21 01:00 01:24 02:00 02:30 Pulse 70 69 70 67 Resp 20 20 B/P (MAP) 114/62 116/63 Pulse Ox 95 94 O2 Delivery Mechanical Ventilator O2 Flow Rate 45.00 FiO2 45 01/27/21 01/27/21 01/27/21 01/27/21 03:00 04:00 04:00 05:00 Pulse 70 117 102 Resp 20 16 16 B/P (MAP) 114/63 101/74 101/74 Pulse Ox 91 93 93 93 O2 Delivery Mechanical Ventilator Mechanical Ventilator Mechanical Ventilator Mechanical Ventilator O2 Flow Rate 45.00 45.00 45.00 FiO2 45 01/27/21 01/27/21 01/27/21 01/27/21 05:24 06:00 06:54 07:00 Pulse 117 62 65 105 Resp 20 20 B/P (MAP) 101/74 103/55 Pulse Ox 92 92 O2 Delivery Mechanical Ventilator O2 Flow Rate 45.00 FiO2 45 01/27/21 01/27/21 01/27/21 01/27/21 07:00 07:40 07:45 08:00 Temp 36.3 Pulse 78 90 Resp 21 20 B/P (MAP) 100/56 107/56 Pulse Ox 92 92 91 O2 Delivery Mechanical Ventilator Mechanical Ventilator Mechanical Ventilator O2 Flow Rate 45.00 45.00 FiO2 45 01/27/21 01/27/21 01/27/21 01/27/21 08:31 09:00 10:00 11:00 Pulse 109 122 98 111 Resp 20 20 20 B/P (MAP) 104/61 96/65 101/61 102/56 Pulse Ox 91 91 91 O2 Delivery Mechanical Ventilator Mechanical Ventilator Mechanical Ventilator O2 Flow Rate 45.00 45.00 45.00 01/27/21 11:15 Pulse 94 Resp 20 Pulse Ox 91 FiO2 45 01/27/21 00:00 Intake Total 1110 ml Output Total 575 ml Balance 535 ml Weight (Pounds): 263 Weight (Ounces): 3.0 Weight (Calculated Kilograms): 119.309009 Constitutional: other (Intubated, on mech vent, unresponsive) Respiratory: chest expansion is symmetric, chest is bilaterally symmetric, rhonchi (scattered), other (intubated) Cardiovascular: irregularly irregular, tachycardia Extremities: other (bilat pitting and non-pitting edema) Neurologic/Psychiatric: other (sedated, unable to co-operate with neuro exam) Skin: other (dry, flaky LE with discoloration of venous stasis) Results/Procedures: Labs Laboratory Tests 01/26/21 17:09: Glucometer 184H 01/27/21 00:12: Glucometer 194H 01/27/21 03:55: White Blood Count 11.3H, Red Blood Count 4.80, Hemoglobin 13.2L, Hematocrit 44, Mean Corpuscular Volume 91, Mean Corpuscular Hemoglobin 28, Mean Corpuscular Hemoglobin Concent 30L, Red Cell Distribution Width 15.2H, Platelet Count 171, Mean Platelet Volume 11.4, Immature Granulocyte % (Auto) 1, Neutrophils (%) (Auto) 90H, Lymphocytes (%) (Auto) 5L, Monocytes (%) (Auto) 5, Eosinophils (%) (Auto) 0, Basophils (%) (Auto) 0, Neutrophils # (Auto) 10.1H, Lymphocytes # (Auto) 0.6L, Monocytes # (Auto) 0.5, Eosinophils # (Auto) 0.0, Basophils # (Auto) 0.0, Immature Granulocyte # (Auto) 0.1, Sodium Level 134L, Potassium Level 4.5, Chloride Level 93L, Carbon Dioxide Level 34H, Anion Gap 7, Blood Urea Nitrogen 17, Creatinine 0.75, Estimat Glomerular Filtration Rate 106, BUN/Cre atinine Ratio 23, Glucose Level 208H, Lactic Acid Level 1.88, Calcium Level 8.7, Corrected Calcium 9.4, Phosphorus Level 2.6, Magnesium Level 2.0, Total Bilirubin 0.4, Aspartate Amino Transf (AST/SGOT) 8, Alanine Aminotransferase (ALT/SGPT) 12, Alkaline Phosphatase 48, Total Protein 5.8L, Albumin 3.1L 01/27/21 04:00: Blood Gas Puncture Site RIGHT RADIAL, Blood Gas Patient Temperature 36.6, Arterial Blood pH 7.39, Arterial Blood Partial Pressure CO2 65H, Arterial Blood Partial Pressure O2 64L, Arterial Blood HCO3 39H, Arterial Blood Total CO2 41.1*H, Arterial Blood Oxygen Saturation 91L, Arterial Blood Base Excess 13.5H, Jair Test YES-POS, Blood Gas Ventilator Setting YES, Blood Gas Inspired Oxygen 45% Microbiology 01/25/21 Gram Stain - Final, Resulted 01/25/21 Sputum Culture - Preliminary, Resulted Haemophilus influenza Usual upper respiratory andrew 01/25/21 Blood Culture - Preliminary, Resulted No growth 01/25/21 Urine Culture - Final, Complete NO GROWTH Laboratory Tests 01/26/21 05:00 01/27/21 03:55 A/P: Assessment: Pneumonia with resp failure requiring intubation - Echo 01/26/21: LVEF 55-60%, mild to mod enlargement of LA P. A-fib/flutter - Typical atrial flutter ablation by Dr. Rankin on 08/24/2018 - Recurrent A Fib/Fl on 08/17/20 with RVR - OAC with Eliquis - Currently a-fib with RVR - controlled with iv dilt and metoprolol HTN Tobaccoism COPD Obesity Bilat LE swelling and chronic stasis dermatitis fo the legs Plan: ICU and Hospitalist service is managing his acute resp failure Continue dilt and metoprolol iv for vent rate control Continue Eliquis for stroke prophylaxis Monitor lab closely Replace electrolytes as indicated I again spoke with his Justine regarding plan of care EULA COLLAZO MD FACP [facility] Jan 27, 2021 11:40
[2021-01-27] MEDS: inSUlin ASPART (NovoLOG) 1 UNIT/0.01 ML (CHARGE PER UNIT) SC SCH ×2 (12:14→18:42)
[2021-01-27 14:28] VITALS: BP 103/65
[2021-01-27] MEDS: fentaNYL DRIP PRE-MIX 250 ML IV SCH (15:17)
[2021-01-27 19:01] VITALS: BP 117/80
[2021-01-27 22:28] VITALS: BP 111/647
[2021-01-28] MEDS: meTOprolol 5 MG/5 ML (LOPRESSOR) VIAL IV SCH ×9 (00:10→23:01)
[2021-01-28] MEDS: methylPREDNISolone 40 MG/ML (Solu-MEDROL) VIAL IV SCH ×4 (00:10→22:01)
[2021-01-28] MEDS: inSUlin ASPART (NovoLOG) 1 UNIT/0.01 ML (CHARGE PER UNIT) SC SCH ×5 (00:10→23:18)
[2021-01-28] MEDS: CEFEPIME INJECTION 1,000 MG in WATER (STERILE) FOR INJECTION 10 ML IV SCH ×5 (00:11→23:01)
[2021-01-28] MEDS: PROPOFOL DRIP (ICU) 100 ML IV SCH ×7 (01:55→22:46)
[2021-01-28 02:21] VITALS: BP 106/67
[2021-01-28] MEDS: RT-ALBUTEROL/IPRATROPIUM 3 ML (DUONEB) VIAL INH SCH ×5 (02:21→18:31)
[2021-01-28] MEDS: LACTATED RINGERS 1,000 ML IV SCH ×2 (03:00→10:30)
[2021-01-28] MEDS: dilTIAZem DRIP PRE-MIX 125 ML IV SCH ×2 (03:00→22:46)
[2021-01-28] MEDS: VASOPRESSIN INJECTION 20 UNIT in NS (IVPB) 100 ML IV SCH ×2 (04:45→14:59)
[2021-01-28 04:48] LABS: ABG BASE EXCESS 12.9 MMOL/L (-2.5-2.5); ABG OXYGEN SATURATION 93 % (94-100); ABG PCO2 65 MMHG (35-45); ABG PH 7.39 (7.37-7.43); ABG PO2 73 MMHG (79-93)
[2021-01-28 04:49] LABS: BASOPHILS % (AUTO) 0 % (0-10); EOSINOPHILS % (AUTO) 0 % (0-10); HEMATOCRIT 46 % (40-54); HEMOGLOBIN 13.9 g/dL (13.3-17.7); LYMPHOCYTES # (AUTO) 0.5 10^3/uL (1.0-4.0); LYMPHOCYTES % (AUTO) 5 % (12-44); MEAN CORPUSCULAR HEMOGLOBIN 27 pg (25-34); MEAN CORPUSCULAR HGB CONC 30 g/dL (32-36); MEAN CORPUSCULAR VOLUME 90 fL (80-99); MEAN PLATELET VOLUME 11.6 fL (9.0-12.2); MONOCYTES # (AUTO) 0.5 10^3/uL (0.0-1.0); MONOCYTES % (AUTO) 5 % (0-12); NEUTROPHILS # (AUTO) 9.5 10^3/uL (1.8-7.8); NEUTROPHILS % (AUTO) 89 % (42-75); PLATELET COUNT 188 10^3/uL (130-400); WHITE BLOOD COUNT 10.6 10^3/uL (4.3-11.0)
[2021-01-28 04:51] LABS: ABG TCO2 40.6 MMOL/L (21.0-31.0); ALLENS TEST YES-POS
[2021-01-28 04:52] LABS: INSPIRED O2 60%; PATIENT TEMP 36.6; VENTILATOR YES
[2021-01-28 05:00] LABS: POTASSIUM 4.9 MMOL/L (3.6-5.0)
[2021-01-28 05:01] LABS: CALCIUM 8.5 MG/DL (8.5-10.1)
[2021-01-28 05:03] LABS: TOTAL PROTEIN 5.7 GM/DL (6.4-8.2)
[2021-01-28 05:04] LABS: BILIRUBIN,TOTAL 0.5 MG/DL (0.1-1.0)
[2021-01-28 05:06] LABS: CREATININE SERUM 0.82 MG/DL (0.60-1.30); PHOSPHORUS 2.9 MG/DL (2.3-4.7)
[2021-01-28 05:09] LABS: MAGNESIUM 2.1 MG/DL (1.6-2.4)
[2021-01-28] MEDS: POTASSIUM CL 10MEQ/50ML IVPB 50 ML IV SCH (05:33)
[2021-01-28] MEDS: KCL 20 MEQ TAB (K-DUR) PO SCH (05:34)
[2021-01-28] MEDS: MAGNESIUM 1 GM/100 ML IVPB 100 ML IV SCH (05:34)
[2021-01-28 06:54] VITALS: BP 119/78
--- NOTE | 2021-01-28 08:04 | Progress Note - Hospitalist ---
Subjective HPI/CC On Admission Date Seen by Provider: Jan 28, 2021 Time Seen by Provider: 11:30 Subjective/Events-last exam Patient remains intubated Lasix IV given 40 mg Stopped his fluids Cardizem drip still at 5 at bedside Focused Exam Lactate Level 01/27/21 03:55: Lactic Acid Level 1.88 Objective Exam Vital Signs Vital Signs Date Time Temp Pulse Resp B/P (MAP) Pulse Ox O2 Delivery O2 Flow Rate FiO2 01/29/21 04:00 90 Mechanical Ventilator 50 01/29/21 03:05 84 20 01/29/21 02:02 115/79 01/29/21 00:00 50.00 01/28/21 23:21 37.0 Capillary Refill : Less Than 3 Seconds General Appearance: No Apparent Distress, WD/WN, Chronically ill, Obese, Other Respiratory: No Accessory Muscle Use, No Respiratory Distress, Decreased Breath Sounds Cardiovascular: Irregularly Irregular, Tachycardia Results/Procedures Lab Laboratory Tests 01/29/21 04:15 Patient resulted labs reviewed. Assessment/Plan Assessment and Plan Assess & Plan/Chief Complaint Assessment: Acute on chronic respiratory failure Ventilator dependence CO2 narcosis Noncompliant with BiPAP New onset atrial fibrillation with rapid ventricular response Obesity BMI 42 Plan: Ventilator Dr. Fulton consult Atrial fibrillation management Oral anticoagulation for stroke prophylaxis 01/27/2021: Supportive care Ventilator management appreciated Atrial fibrillation with RVR management per cardiology 01/28/2021: Cardizem drip Ventilator maintained Critical Care Ventilator Management VIJAYA HARRELL DO Jan 28, 2021 08:04
[2021-01-28] MEDS: APIXABAN 5 MG (ELIQUIS) TABLET PO SCH ×2 (08:20→20:00)
[2021-01-28] MEDS: PANTOPRAZOLE 40 MG (PROTONIX) VIAL IV SCH (08:20)
[2021-01-28] MEDS ORDERED: FUROSEMIDE 40 MG/4 ML INJ (LASIX) IVP ONE (09:00)
--- NOTE | 2021-01-28 09:20 | Tele-ICU Progress Note ---
Subjective Date Seen by a Provider: Jan 28, 2021 Time Seen by a Provider: 09:19 Sepsis Event Evaluation Height, Weight, BMI Height: 6'2.00" Weight: 263lbs. 3.0oz. 119.719123kl; 40.12 BMI Method:Stated Focused Exam Lactate Level 01/25/21 21:10: Lactic Acid Level 2.53*H 01/25/21 23:10: Lactic Acid Level 2.64*H 01/27/21 03:55: Lactic Acid Level 1.88 Exam Exam Patient acknowledged, consented, and participated in this virtual visit which was conducted using real time audio/video Vital Signs Date Time Temp Pulse Resp B/P (MAP) Pulse Ox O2 Delivery O2 Flow Rate FiO2 01/28/21 08:21 93 121/79 01/28/21 08:00 103 17 117/70 92 Mechanical Ventilator 60.00 01/28/21 07:30 37.1 01/28/21 07:22 93 Mechanical Ventilator 60 01/28/21 07:00 108 01/28/21 07:00 131 16 118/72 94 Mechanical Ventilator 60.00 01/28/21 06:54 110 20 93 60 01/28/21 06:00 71 20 107/80 93 Mechanical Ventilator 60.00 01/28/21 05:00 111 20 107/62 91 Mechanical Ventilator 60.00 01/28/21 04:43 Mechanical Ventilator 60.00 01/28/21 04:42 118/76 01/28/21 04:00 84 20 107/76 90 Mechanical Ventilator 40.00 01/28/21 04:00 36.6 01/28/21 04:00 91 Mechanical Ventilator 60 01/28/21 03:00 80 20 107/65 90 Mechanical Ventilator 40.00 01/28/21 02:21 86 20 93 40 01/28/21 02:00 86 20 113/54 92 Mechanical Ventilator 40.00 01/28/21 01:55 109/71 01/28/21 01:00 83 20 108/63 90 Mechanical Ventilator 40.00 01/28/21 01:00 83 01/28/21 00:00 89 20 107/66 90 Mechanical Ventilator 40.00 01/27/21 23:58 36.8 01/27/21 23:57 90 Mechanical Ventilator 40 01/27/21 23:00 86 20 115/68 90 Mechanical Ventilator 40.00 01/27/21 22:34 136/81 01/27/21 22:28 125 20 96 40 01/27/21 22:00 90 12 112/61 90 Mechanical Ventilator 40.00 01/27/21 21:00 82 20 119/76 91 Mechanical Ventilator 40.00 01/27/21 20:00 91 Mechanical Ventilator 40 01/27/21 20:00 92 20 123/76 91 Mechanical Ventilator 40.00 01/27/21 19:26 36.6 01/27/21 19:01 115 20 90 40 01/27/21 19:00 87 20 117/70 90 Mechanical Ventilator 40.00 01/27/21 19:00 84 01/27/21 18:42 71 112/57 01/27/21 18:00 79 20 111/64 90 Mechanical Ventilator 40.00 01/27/21 17:43 95 Mechanical Ventilator 40.00 01/27/21 17:00 94 20 114/63 92 Mechanical Ventilator 45.00 01/27/21 16:00 82 20 104/60 91 Mechanical Ventilator 45.00 01/27/21 16:00 92 Mechanical Ventilator 45 01/27/21 15:40 36.3 01/27/21 15:18 90 107/62 01/27/21 15:00 95 20 104/64 91 Mechanical Ventilator 45.00 01/27/21 14:28 81 20 91 45 01/27/21 14:00 116 20 100/75 91 Mechanical Ventilator 45.00 01/27/21 13:00 105 01/27/21 13:00 89 20 96/74 91 Mechanical Ventilator 45.00 01/27/21 12:14 115 94/68 01/27/21 12:00 106 20 94/68 91 Mechanical Ventilator 45.00 01/27/21 12:00 92 Mechanical Ventilator 45 01/27/21 11:30 36.2 01/27/21 11:15 94 20 91 45 01/27/21 11:00 111 20 102/56 91 Mechanical Ventilator 45.00 01/27/21 10:00 98 20 101/61 91 Mechanical Ventilator 45.00 I & O 01/28/21 07:00 Intake Total 4870 ml Output Total 1400 ml Balance 3470 ml Height & Weight Height: 6'2.00" Weight: 263lbs. 3.0oz. 119.160027of; 40.12 BMI Method:Stated General Appearance: Chronically ill, Obese, Other (Sedated and intubated) HEENT: PERRL/EOMI, Pharynx Normal Neck: Non Tender, Supple Respiratory: No Accessory Muscle Use, No Respiratory Distress, Decreased Breath Sounds Cardiovascular: Irregularly Irregular, Tachycardia Capillary Refill: Less Than 3 Seconds Gastrointestinal: normal bowel sounds, soft Extremity: Pedal Edema (4+ to level above knees bilateral.), Other (Venous stasis changes noted to bilateral lower extremities) Neurologic/Psychiatric: Alert, Oriented x3, Other (Unresponsive on arrival with occasional moaning. Later noted to react to endotracheal tube with chewing and slightly moving bilateral upper extremities.) Skin: Warm/Dry, Erythema (Erythematous to the knees bilaterally with gross edema and scaling. Small area of left lateral calf has pink wet-appearing skin from loss of overlying scaling, no discharge or drainage seen.) Results Lab Laboratory Tests 01/27/21 03:55 01/28/21 04:35 Assessment/Plan Assessment/Plan (Tele-ICU Physician , Progress Note ) Available chart/ vitals / labs / Images reviewed Video assessment done using teleICU camera, rest of exam as per RN Discussed with RN , EXAM PER RN Events overnight : increased Fio2 FEBRILE I/O = POS 1800ml - 3 days positive 5L Drips: cardizem Pressors: , hemodynamically stable Sedation gtt: ( RASS- -2 prop 35 fnt 50 VENT SETTINGS and ABG reviewed Not candidate for SBT today REVIEWED Cardiovascular Stability / Sedation Score / FI02/PEEP / ABG / CXR Consultants: jesika Hospital course: 01-25: INTUBATED Unresponsive - Pneumonia - A Fib RVR (Now SR) - Intubated A/P Acute resp failure , PNA and AECOPD - Intubated 01/25 ( unresponsive with hypercarbia , PNA ) AC 60 % 20 450 + 5 - I/O = POS 1800ml - 3 days positive 5L - will give LASIX x1 today - HOPING FOR SBT TOMORROW PNA ( NEG COVID PCR , NEG flu - sputm cx 01/25 - Hflu - in cefepime 01/25 - cont ABX AECOPD - IV steroids - decrease 01/28 - nebs A fib RVR on presentation - converted to sinus 01/25 - >> back to a fib RVR 10/1 - cards follow , digoxin, diltiazem gtt , IV metoprolol - AC with eliquis -ECHO done - results pending Chronic hypercarbic rersp failure with COPD - on NIPPV at night - ? CARA vs OHS Elevated ddimer on admission - MARCOS - US venous NEG 01/25 - already on AC , low sup for PE - will follow on Eliquis Lines : RIGHT IJ 01/25 (Central Line Necessity Reviewed) Cash: 01/25 O/30 Nutrition: TF Analgesia: Anxiety/ delirium VTE Prophylaxis: eliquis Stress Ulcer Prophylaxis: PPI Plans in collaboration with bedside consultants and IM MDs. Discussed with RN to reach out if any questions or concerns A total of 35 minutes of critical care time was devoted to this patient today, required to treat and/or prevent further deterioration of critical care condition ( as above) . FER VAZQUEZ MD Jan 28, 2021 09:20
[2021-01-28] MEDS: MICONAZOLE 2% POWDER (DESENEX AF) 90 GM TOP SCH ×2 (09:50→20:00)
[2021-01-28] MEDS: NOREPINEPHRINE 8 MG/250 ML 250 ML IV SCH ×2 (09:51→19:20)
[2021-01-28] MEDS: fentaNYL DRIP PRE-MIX 250 ML IV SCH (10:25)
[2021-01-28 10:31] VITALS: BP 118/68
[2021-01-28 14:46] VITALS: BP 122/78
--- NOTE | 2021-01-28 15:35 | Progress Note - Cardiology ---
Cardiology SOAP Progress Note Subjective: Intubated, on mech vent, unable to communicate Objective: I&O/Vital Signs 01/28/21 01/28/21 01/28/21 01/28/21 04:00 04:00 04:00 04:42 Temp 36.6 Pulse 84 Resp 20 B/P (MAP) 107/76 118/76 Pulse Ox 91 90 O2 Delivery Mechanical Ventilator Mechanical Ventilator O2 Flow Rate 40.00 FiO2 60 01/28/21 01/28/21 01/28/21 01/28/21 04:43 05:00 06:00 06:54 Pulse 111 71 110 Resp 20 20 20 B/P (MAP) 107/62 107/80 Pulse Ox 91 93 93 O2 Delivery Mechanical Ventilator Mechanical Ventilator Mechanical Ventilator O2 Flow Rate 60.00 60.00 60.00 FiO2 60 01/28/21 01/28/21 01/28/21 01/28/21 07:00 07:00 07:22 07:30 Temp 37.1 Pulse 131 108 Resp 16 B/P (MAP) 118/72 Pulse Ox 94 93 O2 Delivery Mechanical Ventilator Mechanical Ventilator O2 Flow Rate 60.00 FiO2 60 01/28/21 01/28/21 01/28/21 01/28/21 08:00 08:21 09:00 09:52 Pulse 103 93 111 Resp 17 20 B/P (MAP) 117/70 121/79 115/77 Pulse Ox 92 92 93 O2 Delivery Mechanical Ventilator Mechanical Ventilator Mechanical Ventilator O2 Flow Rate 60.00 60.00 55.00 01/28/21 01/28/21 01/28/21 01/28/21 10:00 10:31 11:00 11:50 Temp 36.7 Pulse 59 75 95 Resp 26 20 20 B/P (MAP) 107/66 120/81 Pulse Ox 100 91 90 O2 Delivery Mechanical Ventilator Mechanical Ventilator O2 Flow Rate 55.00 55.00 FiO2 55 01/28/21 01/28/21 01/28/21 01/28/21 12:00 12:16 12:17 13:00 Pulse 84 133 113 Resp 20 B/P (MAP) 112/71 126/83 Pulse Ox 91 92 O2 Delivery Mechanical Ventilator Mechanical Ventilator O2 Flow Rate 55.00 FiO2 50 01/28/21 01/28/21 01/28/21 13:00 14:00 14:46 Pulse 105 131 129 Resp 20 13 20 B/P (MAP) 119/77 126/71 Pulse Ox 92 91 96 O2 Delivery Mechanical Ventilator Mechanical Ventilator O2 Flow Rate 55.00 55.00 FiO2 55 01/28/21 00:00 Intake Total 1895 ml Output Total 650 ml Balance 1245 ml Weight (Pounds): 263 Weight (Ounces): 3.0 Weight (Calculated Kilograms): 119.103944 Constitutional: other (Intubated, on mech vent, unresponsive) Respiratory: chest expansion is symmetric, chest is bilaterally symmetric, rhonchi (scattered), other (intubated) Cardiovascular: irregularly irregular, tachycardia Extremities: other (bilat pitting and non-pitting edema) Neurologic/Psychiatric: other (sedated, unable to co-operate with neuro exam) Skin: other (dry, flaky LE with discoloration of venous stasis) Results/Procedures: Labs Laboratory Tests 01/27/21 18:06: Glucometer 185H 01/28/21 00:06: Glucometer 218H 01/28/21 04:35: White Blood Count 10.6, Red Blood Count 5.12, Hemoglobin 13.9, Hematocrit 46, Mean Corpuscular Volume 90, Mean Corpuscular Hemoglobin 27, Mean Corpuscular Hemoglobin Concent 30L, Red Cell Distribution Width 15.2H, Platelet Count 188, Mean Platelet Volume 11.6, Immature Granulocyte % (Auto) 1, Neutrophils (%) (Auto) 89H, Lymphocytes (%) (Auto) 5L, Monocytes (%) (Auto) 5, Eosinophils (%) (Auto) 0, Basophils (%) (Auto) 0, Neutrophils # (Auto) 9.5H, Lymphocytes # (Au to) 0.5L, Monocytes # (Auto) 0.5, Eosinophils # (Auto) 0.0, Basophils # (Auto) 0.0, Immature Granulocyte # (Auto) 0.1, Blood Gas Puncture Site RIGHT RADIAL, Blood Gas Patient Temperature 36.6, Arterial Blood pH 7.39, Arterial Blood Partial Pressure CO2 65H, Arterial Blood Partial Pressure O2 73L, Arterial Blood HCO3 39H, Arterial Blood Total CO2 40.6*H, Arterial Blood Oxygen Saturation 93L, Arterial Blood Base Excess 12.9H, Jair Test YES-POS, Blood Gas Ventilator Setting YES, Blood Gas Inspired Oxygen 60%, Sodium Level 137, Potassium Level 4.9, Chloride Level 95L, Carbon Dioxide Level 33H, Anion Gap 9, Blood Urea Nitrogen 21H, Creatinine 0.82, Estimat Glomerular Filtration Rate 95, BUN/Creat inine Ratio 26, Glucose Level 213H, Calcium Level 8.5, Corrected Calcium 9.3, P hosphorus Level 2.9, Magnesium Level 2.1, Total Bilirubin 0.5, Aspartate Amino Transf (AST/SGOT) 11, Alanine Aminotransferase (ALT/SGPT) 13, Alkaline Phosphatase 49, Total Protein 5.7L, Albumin 3.0L 01/28/21 11:36: Glucometer 209H Microbiology 01/25/21 Gram Stain - Final, Complete 01/25/21 Sputum Culture - Final, Complete Haemophilus influenza Usual upper respiratory andrew 01/25/21 Blood Culture - Preliminary, Resulted No growth 01/25/21 Urine Culture - Final, Complete NO GROWTH Laboratory Tests 01/27/21 03:55 01/28/21 04:35 A/P: Assessment: Pneumonia with resp failure requiring intubation - Echo 01/26/21: LVEF 55-60%, mild to mod enlargement of LA P. A-fib/flutter - Typical atrial flutter ablation by Dr. Rankin on 08/24/2018 - Recurrent A Fib/Fl on 08/17/20 with RVR - OAC with Eliquis - Currently a-fib with RVR - controlled with iv dilt and metoprolol HTN Tobaccoism COPD Obesity Bilat LE swelling and chronic stasis dermatitis fo the legs Plan: ICU and Hospitalist service is managing his acute resp failure Continue dilt and metoprolol iv for vent rate control Continue Eliquis for stroke prophylaxis Monitor lab closely Replace electrolytes as indicated I again spoke with his Justine regarding plan of care EULA COLLAZO MD FACP FAC CCDS Jan 28, 2021 15:35
[2021-01-28 18:31] VITALS: BP 103/80
[2021-01-28 22:40] VITALS: BP 121/67
[2021-01-29] MEDS: VASOPRESSIN INJECTION 20 UNIT in NS (IVPB) 100 ML IV SCH ×3 (01:04→23:51)
[2021-01-29] MEDS: meTOprolol 5 MG/5 ML (LOPRESSOR) VIAL IV SCH ×8 (02:00→23:50)
[2021-01-29] MEDS: PROPOFOL DRIP (ICU) 100 ML IV SCH ×5 (02:02→19:45)
[2021-01-29 03:05] VITALS: BP 121/67
[2021-01-29 04:31] LABS: ABG BASE EXCESS 14.1 MMOL/L (-2.5-2.5); ABG OXYGEN SATURATION 93 % (94-100); ABG PCO2 66 MMHG (35-45); ABG PO2 74 MMHG (79-93); BASOPHILS % (AUTO) 0 % (0-10); EOSINOPHILS % (AUTO) 0 % (0-10); HEMATOCRIT 47 % (40-54); HEMOGLOBIN 14.5 g/dL (13.3-17.7); LYMPHOCYTES # (AUTO) 0.3 10^3/uL (1.0-4.0); LYMPHOCYTES % (AUTO) 3 % (12-44); MEAN CORPUSCULAR HEMOGLOBIN 28 pg (25-34); MEAN CORPUSCULAR HGB CONC 31 g/dL (32-36); MEAN CORPUSCULAR VOLUME 89 fL (80-99); MEAN PLATELET VOLUME 11.5 fL (9.0-12.2); MONOCYTES # (AUTO) 0.6 10^3/uL (0.0-1.0); MONOCYTES % (AUTO) 6 % (0-12); NEUTROPHILS # (AUTO) 8.7 10^3/uL (1.8-7.8); NEUTROPHILS % (AUTO) 90 % (42-75); PLATELET COUNT 190 10^3/uL (130-400); WHITE BLOOD COUNT 9.7 10^3/uL (4.3-11.0)
[2021-01-29 04:34] LABS: ABG TCO2 41.7 MMOL/L (21.0-31.0); ALLENS TEST YES-POS; INSPIRED O2 50%; VENTILATOR YES
[2021-01-29 04:42] LABS: ALBUMIN 3.2 GM/DL (3.2-4.5); POTASSIUM 4.8 MMOL/L (3.6-5.0)
[2021-01-29 04:43] LABS: CALCIUM 8.4 MG/DL (8.5-10.1)
[2021-01-29 04:44] LABS: TOTAL PROTEIN 5.9 GM/DL (6.4-8.2)
[2021-01-29 04:46] LABS: BILIRUBIN,TOTAL 0.7 MG/DL (0.1-1.0)
[2021-01-29] MEDS: NOREPINEPHRINE 8 MG/250 ML 250 ML IV SCH ×2 (04:47→16:05)
[2021-01-29 04:48] LABS: CREATININE SERUM 0.86 MG/DL (0.60-1.30); PHOSPHORUS 2.9 MG/DL (2.3-4.7)
[2021-01-29] MEDS: MAGNESIUM 1 GM/100 ML IVPB 100 ML IV SCH (04:48)
[2021-01-29] MEDS: KCL 20 MEQ TAB (K-DUR) PO SCH (04:48)
[2021-01-29] MEDS: POTASSIUM CL 10MEQ/50ML IVPB 50 ML IV SCH (04:48)
[2021-01-29 04:51] LABS: MAGNESIUM 2.2 MG/DL (1.6-2.4)
[2021-01-29] MEDS: CEFEPIME INJECTION 1,000 MG in WATER (STERILE) FOR INJECTION 10 ML IV SCH ×4 (05:24→23:50)
[2021-01-29] MEDS: methylPREDNISolone 40 MG/ML (Solu-MEDROL) VIAL IV SCH ×3 (05:24→21:40)
[2021-01-29] MEDS: inSUlin ASPART (NovoLOG) 1 UNIT/0.01 ML (CHARGE PER UNIT) SC SCH ×4 (05:28→23:50)
[2021-01-29] MEDS: fentaNYL DRIP PRE-MIX 250 ML IV SCH (05:31)
[2021-01-29 07:04] VITALS: BP 111/66
[2021-01-29] MEDS: RT-ALBUTEROL/IPRATROPIUM 3 ML (DUONEB) VIAL INH SCH ×5 (07:04→22:32)
[2021-01-29] MEDS: dilTIAZem DRIP PRE-MIX 125 ML IV SCH ×2 (08:18→18:06)
[2021-01-29] MEDS: PANTOPRAZOLE 40 MG (PROTONIX) VIAL IV SCH (08:20)
[2021-01-29] MEDS: APIXABAN 5 MG (ELIQUIS) TABLET PO SCH ×2 (08:20→20:28)
[2021-01-29] MEDS: MICONAZOLE 2% POWDER (DESENEX AF) 90 GM TOP SCH ×2 (08:48→20:29)
[2021-01-29] MEDS: acetaZOLAMIDE INJ 500 MG/5 ML (DIAMOX) VIAL IV SCH ×2 (08:51→20:28)
[2021-01-29 09:53] VITALS: BP 120/70
--- NOTE | 2021-01-29 10:53 | Progress Note - Cardiology ---
Cardiology SOAP Progress Note Subjective: Intubated and on mech vent, unable to communicate Objective: I&O/Vital Signs 01/28/21 01/28/21 01/28/21 01/29/21 23:00 23:21 23:59 00:00 Temp 37.0 Pulse 122 129 Resp 19 20 B/P (MAP) 116/72 115/79 Pulse Ox 92 90 92 O2 Delivery Mechanical Ventilator Mechanical Ventilator Mechanical Ventilator O2 Flow Rate 50.00 50.00 FiO2 50 01/29/21 01/29/21 01/29/21 01/29/21 01:00 01:00 02:00 02:02 Pulse 110 98 112 129 21 B/P (MAP) 114/66 118/73 115/79 Pulse Ox 92 92 O2 Delivery Mechanical Ventilator Mechanical Ventilator O2 Flow Rate 50.00 50.00 01/29/21 01/29/21 01/29/21 01/29/21 03:00 03:05 04:00 04:00 Pulse 85 84 107 Resp 20 20 20 B/P (MAP) 109/72 109/78 Pulse Ox 93 94 91 90 O2 Delivery Mechanical Ventilator Mechanical Ventilator Mechanical Ventilator O2 Flow Rate 50.00 50.00 FiO2 50 50 01/29/21 01/29/21 01/29/21 01/29/21 05:00 05:31 06:00 06:36 Pulse 94 84 89 85 Resp 20 20 B/P (MAP) 112/67 121/67 123/72 Pulse Ox 91 92 O2 Delivery Mechanical Ventilator Mechanical Ventilator O2 Flow Rate 50.00 50.00 01/29/21 01/29/21 01/29/21 01/29/21 07:00 07:04 08:00 08:00 Pulse 81 89 93 Resp 20 20 20 B/P (MAP) 111/66 116/74 Pulse Ox 93 93 92 92 O2 Delivery Mechanical Ventilator Mechanical Ventilator Mechanical Ventilator O2 Flow Rate 50.00 50.00 FiO2 50 50 01/29/21 01/29/21 01/29/21 01/29/21 08:01 09:00 09:53 10:00 Temp 36.6 Pulse 93 83 96 Resp 20 16 16 B/P (MAP) 118/68 126/81 Pulse Ox 92 92 92 O2 Delivery Mechanical Ventilator Mechanical Ventilator O2 Flow Rate 50.00 50.00 FiO2 50 01/29/21 10:07 Pulse 91 B/P (MAP) 126/81 01/29/21 00:00 Intake Total 640 ml Output Total 2575 ml Balance -1935 ml Weight (Pounds): 263 Weight (Ounces): 3.0 Weight (Calculated Kilograms): 119.807757 Constitutional: other (Intubated, on mech vent, unresponsive) Respiratory: chest expansion is symmetric, chest is bilaterally symmetric, rhonchi (scattered), other (intubated) Cardiovascular: irregularly irregular, tachycardia Extremities: other (bilat pitting and non-pitting edema) Neurologic/Psychiatric: other (sedated, unable to co-operate with neuro exam) Skin: other (dry, flaky LE with discoloration of venous stasis) Results/Procedures: Labs Laboratory Tests 01/28/21 11:36: Glucometer 209H 01/28/21 17:20: Glucometer 198H 01/28/21 23:16: Glucometer 230H 01/29/21 04:15: White Blood Count 9.7, Red Blood Count 5.26, Hemoglobin 14.5, Hematocrit 47, Mean Corpuscular Volume 89, Mean Corpuscular Hemoglobin 28, Mean Corpuscular Hemoglobin Concent 31L, Red Cell Distribution Width 15.2H, Platelet Count 190, Mean Platelet Volume 11.5, Immature Granulocyte % (Auto) 1, Neutrophils (%) (Auto) 90H, Lymphocytes (%) (Auto) 3L, Monocytes (%) (Auto) 6, Eosinophils (%) (Auto) 0, Basophils (%) (Auto) 0, Neutrophils # (Auto) 8.7H, Lymphocytes # (Auto) 0.3L, Monocytes # (Auto) 0.6, Eosinophils # (Auto) 0.0, Basophils # (Auto) 0.0, Immature Granulocyte # (Auto) 0.1, Blood Gas Puncture Site RIGHT RADIAL, Blood Gas Patient Temperature 37.0, Arterial Blood pH 7.40, Arterial Blood Partial Pressure CO2 66H, Arterial Blood Partial Pressure O2 74L, Arterial Blood HCO3 40H, Arterial Blood Total CO2 41.7*H, Arterial Blood Oxygen Saturation 93L, Arterial Blood Base Excess 14.1H, Jair Test YES-POS, Blood Gas Ventilator Setting YES, Blood Gas Inspired Oxygen 50%, Sodium Level 136, Potassium Level 4.8, Chloride Level 94L, Carbon Dioxide Level 36H, Anion Gap 6, Blood Urea Nitrogen 28H, Creatinine 0.86, Estimat Glomerular Filtration Rate 90, BUN/Creatinine Ratio 33, Glucose Level 231H, Calcium Level 8.4L, Corrected Calcium 9.0, Phosphorus Level 2.9, Magnesium Level 2.2, Total Bilirubin 0.7, Aspartate Amino Transf (AST/SGOT) 51H, Alanine Aminotransferase (ALT/SGPT) 79H, Alkaline Phosphatase 52, Total Protein 5.9L, Albumin 3.2 Microbiology 01/25/21 Gram Stain - Final, Complete 01/25/21 Sputum Culture - Final, Complete Haemophilus influenza Usual upper respiratory andrew 01/25/21 Blood Culture - Preliminary, Resulted No growth 01/25/21 Urine Culture - Final, Complete NO GROWTH Laboratory Tests 01/28/21 04:35 01/29/21 04:15 A/P: Assessment: Pneumonia with resp failure requiring intubation - Echo 01/26/21: LVEF 55-60%, mild to mod enlargement of LA P. A-fib/flutter - Typical atrial flutter ablation by Dr. Rankin on 08/24/2018 - Recurrent A Fib/Fl on 08/17/20 with RVR - OAC with Eliquis - Currently a-fib with RVR - controlled with iv dilt and metoprolol HTN Tobaccoism COPD Obesity Bilat LE swelling and chronic stasis dermatitis fo the legs Plan: ICU and Hospitalist service is managing his acute resp failure Continue dilt and metoprolol iv for vent rate control Continue Eliquis for stroke prophylaxis Monitor lab closely Replace electrolytes as indicated EULA COLLAZO MD FACP FAC CCDS Jan 29, 2021 10:53
--- NOTE | 2021-01-29 11:05 | Tele-ICU Progress Note ---
Subjective Date Seen by a Provider: Jan 29, 2021 Time Seen by a Provider: 11:04 Sepsis Event Evaluation Height, Weight, BMI Height: 6'2.00" Weight: 263lbs. 3.0oz. 119.260831jj; 40.12 BMI Method:Stated Focused Exam Lactate Level 01/27/21 03:55: Lactic Acid Level 1.88 Exam Exam Patient acknowledged, consented, and participated in this virtual visit which was conducted using real time audio/video Vital Signs Date Time Temp Pulse Resp B/P (MAP) Pulse Ox O2 Delivery O2 Flow Rate FiO2 01/29/21 10:07 91 126/81 01/29/21 10:00 96 16 126/81 92 Mechanical Ventilator 50.00 01/29/21 09:53 83 16 92 50 01/29/21 09:00 93 20 118/68 92 Mechanical Ventilator 50.00 01/29/21 08:01 36.6 01/29/21 08:00 92 Mechanical Ventilator 50 01/29/21 08:00 93 20 116/74 92 Mechanical Ventilator 50.00 01/29/21 07:04 89 20 93 50 01/29/21 07:00 81 20 111/66 93 Mechanical Ventilator 50.00 01/29/21 06:36 85 01/29/21 06:00 89 20 123/72 92 Mechanical Ventilator 50.00 01/29/21 05:31 84 121/67 01/29/21 05:00 94 20 112/67 91 Mechanical Ventilator 50.00 01/29/21 04:00 90 Mechanical Ventilator 50 01/29/21 04:00 107 20 109/78 91 Mechanical Ventilator 50.00 01/29/21 03:05 84 20 94 50 01/29/21 03:00 85 20 109/72 93 Mechanical Ventilator 50.00 01/29/21 02:02 129 115/79 01/29/21 02:00 112 21 118/73 92 Mechanical Ventilator 50.00 01/29/21 01:00 98 20 114/66 92 Mechanical Ventilator 50.00 01/29/21 01:00 110 01/29/21 00:00 129 20 115/79 92 Mechanical Ventilator 50.00 01/28/21 23:59 90 Mechanical Ventilator 50 01/28/21 23:21 37.0 01/28/21 23:00 122 19 116/72 92 Mechanical Ventilator 50.00 01/28/21 22:46 97 109/65 01/28/21 22:40 140 20 95 50 01/28/21 22:00 101 19 111/80 92 Mechanical Ventilator 50.00 01/28/21 21:00 96 20 121/71 92 Mechanical Ventilator 50.00 01/28/21 20:00 91 Mechanical Ventilator 50 01/28/21 20:00 36.7 01/28/21 20:00 97 20 114/72 91 Mechanical Ventilator 50.00 01/28/21 19:20 97 109/65 01/28/21 19:13 37.0 97 20 109/65 91 Mechanical Ventilator 50.00 01/28/21 19:00 110 01/28/21 19:00 82 20 106/83 91 Mechanical Ventilator 50.00 01/28/21 18:31 82 20 91 50 01/28/21 18:00 112 23 110/71 90 Mechanical Ventilator 55.00 01/28/21 17:00 123 20 113/80 92 Mechanical Ventilator 55.00 01/28/21 16:43 122 114/75 01/28/21 16:00 108 20 116/75 91 Mechanical Ventilator 55.00 01/28/21 16:00 37.2 01/28/21 16:00 92 Mechanical Ventilator 50 01/28/21 15:00 110 20 122/69 92 Mechanical Ventilator 55.00 01/28/21 14:46 129 20 96 55 01/28/21 14:00 131 13 126/71 91 Mechanical Ventilator 55.00 01/28/21 13:00 105 20 119/77 92 Mechanical Ventilator 55.00 01/28/21 13:00 113 01/28/21 12:17 92 Mechanical Ventilator 50 01/28/21 12:16 133 126/83 01/28/21 12:00 84 20 112/71 91 Mechanical Ventilator 55.00 01/28/21 11:50 36.7 I & O 01/29/21 07:00 Intake Total 2260 ml Output Total 3400 ml Balance -1140 ml Height & Weight Height: 6'2.00" Weight: 263lbs. 3.0oz. 119.001704wv; 40.12 BMI Method:Stated General Appearance: No Apparent Distress, WD/WN, Chronically ill, Obese, Other HEENT: PERRL/EOMI, Pharynx Normal Neck: Non Tender, Supple Respiratory: No Accessory Muscle Use, No Respiratory Distress, Decreased Breath Sounds Cardiovascular: Irregularly Irregular, Tachycardia Capillary Refill: Less Than 3 Seconds Gastrointestinal: normal bowel sounds, soft Extremity: Pedal Edema (4+ to level above knees bilateral.), Other (Venous stasis changes noted to bilateral lower extremities) Neurologic/Psychiatric: Alert, Oriented x3, Other (Unresponsive on arrival with occasional moaning. Later noted to react to endotracheal tube with chewing and slightly moving bilateral upper extremities.) Skin: Warm/Dry, Erythema (Erythematous to the knees bilaterally with gross edema and scaling. Small area of left lateral calf has pink wet-appearing skin from loss of overlying scaling, no discharge or drainage seen.) Results Lab Laboratory Tests 01/28/21 04:35 01/29/21 04:15 Assessment/Plan Assessment/Plan Video assessment done using teleICU camera, rest of exam as per RN Discussed with RN , EXAM PER RN Events overnight : increased Fio2 Afebrile I/O = POS 1800ml - 3 days positive 5L Drips: cardizem Pressors: , hemodynamically stable Sedation gtt: ( RASS- -2 prop 35 fnt 75 VENT SETTINGS and ABG reviewed Not candidate for SBT today REVIEWED Cardiovascular Stability / Sedation Score / FI02/PEEP / ABG / CXR Consultants: jesika Hospital course: 01-25: INTUBATED Unresponsive - Pneumonia - A Fib RVR (Now SR) - Intubated 01/28 - AC 60 % 20 450 + 5 , POS 1800ml - 3 days positive 5L- diuresis attempted - 01/29 - AC 50 % 20 450 + 5 after 3L DIURESIS, changed to DIAMOX A/P Acute resp failure , PNA and AECOPD - Intubated 01/25 ( unresponsive with hypercarbia , PNA ) AC 50 % 20 450 + 5 - will change rr to 16 - I/O = 3 days positive 5L- diuresis attempted -> improved Fio2 , WILL CONT WITH GENTLE DIURESIS WITH DIAMOX GIVEN MET ALCALOSIS - HOPING FOR SBT TOMORROW PNA ( NEG COVID PCR , NEG flu - sputm cx 01/25 - Hflu - in cefepime 01/25 - cont ABX AECOPD - IV steroids - decrease 01/28 - nebs A fib RVR on presentation - converted to sinus 01/25 - >> back to a fib RVR 01/26 - cards follow , digoxin, diltiazem gtt , IV metoprolol - AC with eliquis -ECHO 01/26/21: LVEF 55-60%, mild to mod enlargement of LA Chronic hypercarbic rersp failure with COPD - on NIPPV at night - ? CARA vs OHS Elevated ddimer on admission - [place]URN - venous NEG 01/25 - already on AC , low sup for PE - will follow on Eliquis Lines : RIGHT IJ 01/25 (Central Line Necessity Reviewed) Cash: 01/25 O/30 Nutrition: TF stopped last night - [id number] =to stary Analgesia: Anxiety/ delirium VTE Prophylaxis: eliquis Stress Ulcer Prophylaxis: PPI Plans in collaboration with bedside consultants and IM MDs. Discussed with RN to reach out if any questions or concerns A total of 35 minutes of critical care time was devoted to this patient today, required to treat and/or prevent further deterioration of critical care condition ( as above) . FER VAZQUEZ MD Jan 29, 2021 11:05
--- NOTE | 2021-01-29 11:38 | Progress Note - Hospitalist ---
LAVERNTOMMIE 01/29/21 1138: Subjective HPI/CC On Admission Date Seen by Provider: Jan 29, 2021 Time Seen by Provider: 10:00 COPD exacerbation Bilateral pneumonia Respiratory failure Subjective/Events-last exam Patient examined 450/10/09/69 Ventilator assistance at bedside, reports patient is responsive with yes/no head nodding Checked meds and labs Dr. Fulton consulted He was found down and intubated in the ER Has chronic COPD 4 L of oxygen at home CO2 narcosis Review of Systems Pulmonary: Other (Ventilator assisted) Cardiovascular: Other (irregularly irregular rhythm) Focused Exam Lactate Level 01/27/21 03:55: Lactic Acid Level 1.88 Respiratory: Respiratory Distress Cardiovascular: Irregularly Irregular, Tachycardia Skin: normal color Objective Exam Vital Signs Vital Signs Date Time Temp Pulse Resp B/P (MAP) Pulse Ox O2 Delivery O2 Flow Rate FiO2 01/29/21 11:00 82 10 131/73 93 Mechanical Ventilator 50.00 01/29/21 09:53 50 01/29/21 08:01 36.6 Capillary Refill : Less Than 3 Seconds General Appearance: No Apparent Distress, Chronically ill, Obese Respiratory: Respiratory Distress Cardiovascular: Irregularly Irregular, Tachycardia Skin: Normal Color Results/Procedures Lab Laboratory Tests 01/29/21 04:15 Patient resulted labs reviewed. Assessment/Plan Assessment and Plan Assess & Plan/Chief Complaint Chronic respiratory failure Ventilator dependence CO2 narcosis Noncompliant with BiPAP Atrial fibrillation with rapid ventricular response Obesity Plan: Ventilator Dr. Fulton consulted Atrial fibrillation management Oral anticoagulation for stroke prophylaxis Critical Care: Ventilator Management () Diagnosis/Problems Diagnosis/Problems (1) COPD exacerbation Status: Acute (2) DVT prophylaxis Status: Acute (3) Bilateral pneumonia Status: Acute Qualifiers: Qualified Codes: J18.9 - Pneumonia, unspecified organism (4) Respiratory failure with hypoxia and hypercapnia Status: Acute Qualifiers: Qualified Codes: J96.01 - Acute respiratory failure with hypoxia; J96.02 - Acute respiratory failure with hypercapnia (5) Afib Clinical Quality Measures AMI/AHF: Ejection Fraction %: 55 Ejection Fraction: Above/Equal to 40 GHAZALA COREAS DO 01/30/21 0510: Subjective Subjective/Events-last exam Pt still intubated Sedation holiday, he is able to respond Diamox given for hyperbicarbonemia Lasix taken yesterday and again holding it today Cardiology thinks he is doing well Echocardiogram showed ejection fraction of 55-60% Pulmonary consultation appreciated Objective Exam General Appearance: Chronically ill, Obese, Other (Sedated and intubated) Respiratory: Decreased Breath Sounds Cardiovascular: Irregularly Irregular, Tachycardia Assessment/Plan Assessment and Plan Assess & Plan/Chief Complaint 01/29/2021: Maintain intubation Oral anticoagulation Wean protocol Supervisory-Addendum Brief Verification & Attestation Participated in pt care: history, MDM, physical Personally performed: exam, history, MDM, supervision of care Care discussed with: Medical Student Procedures: n/a Results interpretation: Verified all documentation Verification and Attestation of Medical Student E/M Service A medical student performed and documented this service in my presence. I reviewed and verified all information documented by the medical student and made modifications to such information, when appropriate. I personally performed the physical exam and medical decision making. Ghazala Coreas, Jan 30, 2021,05:10 TOMMIE PUCKETT Jan 29, 2021 11:38 GHAZALA COREAS DO Jan 30, 2021 05:10
[2021-01-29] MEDS: METOCLOPRAMIDE INJ 10 MG/2 ML (REGLAN) IVP SCH ×3 (12:52→23:50)
[2021-01-29 14:44] VITALS: BP 103/66
[2021-01-29 18:58] VITALS: BP 115/64
[2021-01-29 22:32] VITALS: BP 106/79
[2021-01-30] MEDS: PROPOFOL DRIP (ICU) 100 ML IV SCH ×3 (00:01→08:34)
[2021-01-30] MEDS: fentaNYL DRIP PRE-MIX 250 ML IV SCH ×2 (00:01→14:02)
[2021-01-30] MEDS: dilTIAZem DRIP PRE-MIX 125 ML IV SCH ×3 (01:09→20:46)
[2021-01-30] MEDS: NOREPINEPHRINE 8 MG/250 ML 250 ML IV SCH ×3 (01:27→23:56)
[2021-01-30 02:24] VITALS: BP 125/65
[2021-01-30] MEDS: RT-ALBUTEROL/IPRATROPIUM 3 ML (DUONEB) VIAL INH SCH ×6 (02:24→21:39)
[2021-01-30] MEDS: meTOprolol 5 MG/5 ML (LOPRESSOR) VIAL IV SCH ×7 (03:33→20:47)
[2021-01-30 04:51] LABS: BASOPHILS % (AUTO) 0 % (0-10); EOSINOPHILS % (AUTO) 0 % (0-10); HEMATOCRIT 49 % (40-54); HEMOGLOBIN 14.5 g/dL (13.3-17.7); LYMPHOCYTES # (AUTO) 0.4 10^3/uL (1.0-4.0); LYMPHOCYTES % (AUTO) 4 % (12-44); MEAN CORPUSCULAR HEMOGLOBIN 27 pg (25-34); MEAN CORPUSCULAR HGB CONC 30 g/dL (32-36); MEAN CORPUSCULAR VOLUME 90 fL (80-99); MONOCYTES # (AUTO) 0.6 10^3/uL (0.0-1.0); MONOCYTES % (AUTO) 6 % (0-12); NEUTROPHILS # (AUTO) 8.8 10^3/uL (1.8-7.8); NEUTROPHILS % (AUTO) 89 % (42-75); PLATELET COUNT 205 10^3/uL (130-400); WHITE BLOOD COUNT 9.9 10^3/uL (4.3-11.0)
[2021-01-30 04:51] LABS: ABG BASE EXCESS 10.9 MMOL/L (-2.5-2.5); ABG OXYGEN SATURATION 92 % (94-100); ABG PH 7.32 (7.37-7.43); ABG PO2 71 MMHG (79-93); ABG TCO2 39.5 MMOL/L (21.0-31.0)
[2021-01-30 04:52] LABS: ABG PCO2 74 MMHG (35-45)
[2021-01-30 04:53] LABS: ALLENS TEST YES-POS; INSPIRED O2 50%; PATIENT TEMP 36.8; VENTILATOR YES
[2021-01-30 05:05] LABS: ALBUMIN 3.3 GM/DL (3.2-4.5); POTASSIUM 4.7 MMOL/L (3.6-5.0)
[2021-01-30 05:06] LABS: CALCIUM 8.5 MG/DL (8.5-10.1)
[2021-01-30 05:08] LABS: TOTAL PROTEIN 6.1 GM/DL (6.4-8.2)
[2021-01-30 05:11] LABS: CREATININE SERUM 0.93 MG/DL (0.60-1.30); PHOSPHORUS 3.5 MG/DL (2.3-4.7)
[2021-01-30 05:14] LABS: MAGNESIUM 2.5 MG/DL (1.6-2.4)
[2021-01-30] MEDS: MAGNESIUM 1 GM/100 ML IVPB 100 ML IV SCH (06:03)
[2021-01-30] MEDS: POTASSIUM CL 10MEQ/50ML IVPB 50 ML IV SCH (06:03)
[2021-01-30] MEDS: KCL 20 MEQ TAB (K-DUR) PO SCH (06:03)
[2021-01-30] MEDS: CEFEPIME INJECTION 1,000 MG in WATER (STERILE) FOR INJECTION 10 ML IV SCH (06:19)
[2021-01-30] MEDS: methylPREDNISolone 40 MG/ML (Solu-MEDROL) VIAL IV SCH ×3 (06:19→20:46)
[2021-01-30] MEDS: METOCLOPRAMIDE INJ 10 MG/2 ML (REGLAN) IVP SCH (06:19)
[2021-01-30] MEDS: inSUlin ASPART (NovoLOG) 1 UNIT/0.01 ML (CHARGE PER UNIT) SC SCH ×3 (06:19→18:04)
[2021-01-30 07:21] VITALS: BP 112/59
[2021-01-30] MEDS: APIXABAN 5 MG (ELIQUIS) TABLET PO SCH ×2 (08:33→20:45)
[2021-01-30] MEDS: PANTOPRAZOLE 40 MG (PROTONIX) VIAL IV SCH (08:33)
[2021-01-30] MEDS: MICONAZOLE 2% POWDER (DESENEX AF) 90 GM TOP SCH ×2 (08:34→20:48)
[2021-01-30 09:16] VITALS: BP 120/87
[2021-01-30] MEDS ORDERED: METOCLOPRAMIDE INJ 10 MG/2 ML (REGLAN) IVP PRN (09:30)
--- NOTE | 2021-01-30 10:23 | Diagnostic Imaging Report ---
HISTORY: Ileus. TECHNIQUE: Frontal views of the abdomen. COMPARISON: None. FINDINGS: The tip of the enteric tube projects over the stomach. The bowel gas pattern is nonspecific, but some gas is seen in the ascending and sigmoid colon. No small bowel distention is seen. There is no large collection of free air. Stool burden appears overall low. There are pulmonary opacities in the lung bases as seen on the prior chest x-ray. IMPRESSION: 1. Gas in the colon with no high-grade small bowel distention seen. 2. Bibasilar pulmonary opacities. Dictated by: Dictated on workstation # [id number]
--- NOTE | 2021-01-30 10:31 | Progress Note - Cardiology ---
Cardiology SOAP Progress Note Subjective: Remains intubated and sedated Justine Panda, at the [facility] Objective: I&O/Vital Signs 02/01/21 02/01/21 02/01/21 02/01/21 22:00 22:17 22:20 22:23 Pulse 94 Resp 20 B/P (MAP) 132/85 Pulse Ox 91 92 O2 Delivery NIV Bilevel High Flow N/C NIV Bilevel O2 Flow Rate 60.00 10.00 60.00 60.00 02/01/21 02/01/21 02/02/21 02/02/21 23:00 23:59 00:00 00:00 Temp 36.8 Pulse 76 80 Resp 17 18 B/P (MAP) 131/93 120/72 Pulse Ox 93 96 93 O2 Delivery NIV Bilevel NIV Bilevel NIV Bilevel NIV Bilevel O2 Flow Rate 60.00 60.00 60.00 FiO2 60 02/02/21 02/02/21 02/02/21 02/02/21 01:00 01:00 02:00 02:14 Pulse 64 64 72 78 Resp 18 B/P (MAP) 113/70 111/80 Pulse Ox 93 94 O2 Delivery NIV Bilevel NIV Bilevel O2 Flow Rate 60.00 60.00 02/02/21 02/02/21 02/02/21 02/02/21 02:40 03:00 04:00 04:00 Temp 36.5 Pulse 75 69 77 Resp 18 17 13 B/P (MAP) 126/81 106/76 Pulse Ox 94 94 95 94 O2 Delivery NIV Bilevel NIV Bilevel NIV Bilevel O2 Flow Rate 60.00 60.00 60.00 60.00 02/02/21 02/02/21 02/02/21 02/02/21 04:00 05:00 06:00 06:20 Pulse 68 77 Resp 8 11 B/P (MAP) 116/79 118/79 Pulse Ox 96 95 95 91 O2 Delivery NIV Bilevel NIV Bilevel NIV Bilevel High Flow N/C O2 Flow Rate 60.00 60.00 10.00 FiO2 60 02/02/21 02/02/21 02/02/21 02/02/21 06:26 06:49 07:00 07:00 Pulse 100 101 93 Resp 17 B/P (MAP) 111/74 Pulse Ox 92 93 O2 Delivery High Flow N/C High Flow N/C O2 Flow Rate 10.00 10.00 02/02/21 02/02/21 02/02/21 02/02/21 08:00 08:15 08:39 09:00 Temp 36.3 Pulse 90 80 Resp 18 15 B/P (MAP) 121/86 122/87 Pulse Ox 94 93 93 O2 Delivery High Flow N/C NIV Bilevel High Flow N/C O2 Flow Rate 10.00 10.00 10.00 02/02/21 00:00 Intake Total 1540 ml Output Total 1220 ml Balance 320 ml Weight (Pounds): 263 Weight (Ounces): 3.0 Weight (Calculated Kilograms): 119.376015 Constitutional: other (Intubated, on mech vent, unresponsive) Respiratory: chest expansion is symmetric, chest is bilaterally symmetric, rhonchi (scattered), other (intubated) Cardiovascular: irregularly irregular, tachycardia Extremities: other (bilat pitting and non-pitting edema) Neurologic/Psychiatric: other (sedated, unable to co-operate with neuro exam) Skin: normal color Results/Procedures: Labs Laboratory Tests 02/01/21 11:24: Glucometer 186H 02/01/21 16:17: Glucometer 201H 02/01/21 20:25: Glucometer 169H 02/02/21 02:50: White Blood Count 10.1, Red Blood Count 5.34, Hemoglobin 14.7, Hematocrit 48, Mean Corpuscular Volume 90, Mean Corpuscular Hemoglobin 28, Mean Corpuscular Hemoglobin Concent 31L, Red Cell Distribution Width 15.2H, Platelet Count 210, Mean Platelet Volume 11.0, Immature Granulocyte % (Auto) 1, Neutrophils (%) (Auto) 90H, Lymphocytes (%) (Auto) 4L, Monocytes (%) (Auto) 5, Eosinophils (%) (Auto) 0, Basophils (%) (Auto) 0, Neutrophils # (Auto) 9.1H, Lymphocytes # (Auto) 0.4L, Monocytes # (Auto) 0.5, Eosinophils # (Auto) 0.0, Basophils # (A uto) 0.0, Immature Granulocyte # (Auto) 0.1, Sodium Level 138, Potassium Level 4.4, Chloride Level 102, Carbon Dioxide Level 28, Anion Gap 8, Blood Urea Nitrogen 36H, Creatinine 0.81, Estimat Glomerular Filtration Rate 97, BUN/Creatinine Ratio 44, Glucose Level 229H, Calcium Level 8.2L, Corrected Calcium 8.8, Phosphorus Level 2.7, Magnesium Level 2.6H, Total Bilirubin 1.7H, Aspartate Amino Transf (AST/SGOT) 54H, Alanine Aminotransferase (ALT/SGPT) 242H, Alkaline Phosphatase 51, Total Protein 5.9L, Albumin 3.2 02/02/21 08:38: Microbiology 01/25/21 Gram Stain - Final, Complete 01/25/21 Sputum Culture - Final, Complete Haemophilus influenza Usual upper respiratory andrew 01/25/21 Blood Culture - Final, Complete No growth 01/25/21 Urine Culture - Final, Complete NO GROWTH Procedures NAME: KAYA [facility] REC#: [id number] PT STATUS: ADM IN : 1960 PHYSICIAN: VIJAYA HARRELL DO ADMIT DATE: 01/25/21/ICU Draft Date of Exam:01/30/21 ABDOMEN, FLAT & UPRIGHT/DECUB HISTORY: Ileus. TECHNIQUE: Frontal views of the abdomen. COMPARISON: None. FINDINGS: The tip of the enteric tube projects over the stomach. The bowel gas pattern is nonspecific, but some gas is seen in the ascending and sigmoid colon. No small bowel distention is seen. There is no large collection of free air. Stool burden appears overall low. There are pulmonary opacities in the lung bases as seen on the prior chest x-ray. IMPRESSION: 1. Gas in the colon with no high-grade small bowel distention seen. 2. Bibasilar pulmonary opacities. Dictated on workstation # [id number] Dict: 01/30/21 1016 Trans: 01/30/21 1023 [id number] [id number] Interpreted by: MARY CALLAWAY MD Electronically signed by: A/P: Assessment: Pneumonia with resp failure requiring intubation - Echo 01/26/21: LVEF 55-60%, mild to mod enlargement of LA P. A-fib/flutter - Typical atrial flutter ablation by Dr. Rankin on 08/24/2018 - Recurrent A Fib/Fl on 08/17/20 with RVR - OAC with Eliquis - Currently a-fib with RVR - controlled with iv dilt and metoprolol HTN Tobaccoism COPD Obesity Bilat LE swelling and chronic stasis dermatitis fo the legs Plan: ICU and Hospitalist service is managing his acute resp failure Continue dilt and metoprolol iv for vent rate control Continue Eliquis for stroke prophylaxis Monitor lab closely Replace electrolytes as indicated Clinical Quality Measures AMI/AHF: Ejection Fraction %: 55 CASANDRA GERARDO Jan 30, 2021 10:31
--- NOTE | 2021-01-30 11:05 | Progress Note - Hospitalist ---
TOMMIE PUCKETT 01/30/21 1105: Subjective HPI/CC On Admission Date Seen by Provider: Jan 30, 2021 Time Seen by Provider: 09:40 COPD exacerbation Bilateral pneumonia Respiratory failure Review of Systems Gastrointestinal: Other (distention, abdomen soft) Objective Exam Vital Signs Vital Signs Date Time Temp Pulse Resp B/P (MAP) Pulse Ox O2 Delivery O2 Flow Rate FiO2 01/30/21 09:16 85 16 92 50 01/30/21 08:34 116/79 01/30/21 08:00 37.3 01/30/21 08:00 Mechanical Ventilator 01/30/21 06:00 50.00 Capillary Refill : Less Than 3 Seconds General Appearance: Chronically ill, Obese, Other (Opening eyes, responds by squeezing hands) Respiratory: Other (Ventilator 450/10/09/69) Gastrointestinal: Soft, Distended Skin: Normal Color Results/Procedures Lab Laboratory Tests 01/30/21 04:35 Patient resulted labs reviewed. Assessment/Plan Assessment and Plan Assess & Plan/Chief Complaint Suspected ileus; abdomen distended, vomited after flushing feeding tube Chronic respiratory failure Ventilator dependence CO2 narcosis Noncompliant with BiPAP Atrial fibrillation with rapid ventricular response Obesity Plan: Order Abdominal X-Ray Ventilator Dr. Fulton consulted Atrial fibrillation management Oral anticoagulation for stroke prophylaxis Critical Care: Ventilator Management Diagnosis/Problems Diagnosis/Problems (1) COPD exacerbation Status: Acute (2) DVT prophylaxis Status: Acute (3) Bilateral pneumonia Status: Acute Qualifiers: Qualified Codes: J18.9 - Pneumonia, unspecified organism (4) Respiratory failure with hypoxia and hypercapnia Status: Acute Qualifiers: Qualified Codes: J96.01 - Acute respiratory failure with hypoxia; J96.02 - Acute respiratory failure with hypercapnia (5) Afib Clinical Quality Measures AMI/AHF: Ejection Fraction %: 55 GHAZALA HARRELL DO 01/31/21 0531: Subjective Subjective/Events-last exam Pt still intubated Abdomen is still distended Abdominal X-ray will be obtained Dr. Burks consulted Vent settings reviewed ABG showed 7.32/7.4/71 Monitor closely Objective Exam General Appearance: No Apparent Distress, WD/WN, Chronically ill, Obese, Other (Opening eyes, responds by squeezing hands) Respiratory: Decreased Breath Sounds Cardiovascular: Irregularly Irregular, Tachycardia Assessment/Plan Assessment and Plan Assess & Plan/Chief Complaint Supportive care Check x-ray Hold tube feedings Supervisory-Addendum Brief Verification & Attestation Participated in pt care: history, MDM, physical Personally performed: exam, history, MDM, supervision of care Care discussed with: Medical Student Procedures: n/a Results interpretation: Verified all documentation Verification and Attestation of Medical Student E/M Service A medical student performed and documented this service in my presence. I reviewed and verified all information documented by the medical student and made modifications to such information, when appropriate. I personally performed the physical exam and medical decision making. Ghazala Harrell, Jan 31, 2021,05:30 TOMMIE PUCKETT Jan 30, 2021 11:05 GHAZALA HARRELL DO Jan 31, 2021 05:31
--- NOTE | 2021-01-30 11:36 | Tele-ICU Progress Note ---
Subjective Date Seen by a Provider: Jan 30, 2021 Time Seen by a Provider: 11:33 Sepsis Event Evaluation Height, Weight, BMI Height: 6'2.00" Weight: 263lbs. 3.0oz. 119.523466ts; 40.12 BMI Method:Stated Exam Exam Patient acknowledged, consented, and participated in this virtual visit which was conducted using real time audio/video Vital Signs Date Time Temp Pulse Resp B/P (MAP) Pulse Ox O2 Delivery O2 Flow Rate FiO2 01/30/21 11:00 80 17 122/69 97 Mechanical Ventilator 50.00 01/30/21 10:00 118 14 122/87 95 Mechanical Ventilator 50.00 01/30/21 09:16 85 16 92 50 01/30/21 09:00 105 16 122/67 92 Mechanical Ventilator 50.00 01/30/21 08:34 90 116/79 01/30/21 08:00 37.3 01/30/21 08:00 90 Mechanical Ventilator 50 01/30/21 08:00 101 14 116/78 92 Mechanical Ventilator 50.00 01/30/21 07:21 89 16 90 50 01/30/21 07:00 98 12 118/80 91 Mechanical Ventilator 50.00 01/30/21 06:36 103 01/30/21 06:00 112 13 113/71 91 Mechanical Ventilator 50.00 01/30/21 05:00 105 16 122/63 91 Mechanical Ventilator 50.00 01/30/21 04:00 77 16 119/77 90 Mechanical Ventilator 50.00 01/30/21 04:00 90 Mechanical Ventilator 50 01/30/21 03:32 36.8 01/30/21 03:00 87 16 130/80 90 Mechanical Ventilator 50.00 01/30/21 02:24 93 16 93 50 01/30/21 02:00 86 16 125/65 91 Mechanical Ventilator 50.00 01/30/21 01:00 74 01/30/21 01:00 74 16 116/66 91 Mechanical Ventilator 50.00 01/30/21 00:01 96 111/71 01/30/21 00:00 84 16 111/83 90 Mechanical Ventilator 50.00 01/30/21 00:00 90 Mechanical Ventilator 50 01/29/21 23:32 36.7 01/29/21 23:00 80 15 115/71 91 Mechanical Ventilator 50.00 01/29/21 22:32 87 16 91 50 01/29/21 22:00 109 16 121/77 91 Mechanical Ventilator 50.00 01/29/21 21:00 98 16 116/79 91 Mechanical Ventilator 50.00 01/29/21 20:32 36.9 01/29/21 20:00 92 20 117/65 91 Mechanical Ventilator 50.00 01/29/21 20:00 91 Mechanical Ventilator 50 01/29/21 19:45 87 109/67 01/29/21 19:00 84 16 117/66 91 Mechanical Ventilator 50.00 01/29/21 19:00 100 01/29/21 18:58 100 16 91 50 01/29/21 18:00 72 16 97/65 92 Mechanical Ventilator 50.00 01/29/21 17:00 75 16 106/65 92 Mechanical Ventilator 50.00 01/29/21 16:20 95 Mechanical Ventilator 50 01/29/21 16:12 36.9 01/29/21 16:00 89 16 112/67 91 Mechanical Ventilator 50.00 01/29/21 15:00 80 16 110/72 92 Mechanical Ventilator 50.00 01/29/21 14:50 87 110/68 01/29/21 14:44 75 16 92 50 01/29/21 14:00 92 14 105/62 92 Mechanical Ventilator 50.00 01/29/21 13:00 80 16 116/57 92 Mechanical Ventilator 50.00 01/29/21 13:00 76 01/29/21 12:39 36.7 01/29/21 12:15 92 Mechanical Ventilator 50 01/29/21 12:00 103 16 121/74 92 Mechanical Ventilator 50.00 I & O 01/30/21 07:00 Intake Total 1895 ml Output Total 2525 ml Balance -630 ml Height & Weight Height: 6'2.00" Weight: 263lbs. 3.0oz. 119.170064ca; 40.12 BMI Method:Stated General Appearance: Chronically ill, Obese, Other (Opening eyes, responds by squeezing hands) HEENT: PERRL/EOMI, Pharynx Normal Neck: Non Tender, Supple Respiratory: Other (Ventilator 450/16/5/70) Cardiovascular: Irregularly Irregular, Tachycardia Capillary Refill: Less Than 3 Seconds Gastrointestinal: normal bowel sounds, soft Extremity: Pedal Edema (4+ to level above knees bilateral.), Other (Venous stasis changes noted to bilateral lower extremities) Neurologic/Psychiatric: Alert, Oriented x3, Other (Unresponsive on arrival with occasional moaning. Later noted to react to endotracheal tube with chewing and slightly moving bilateral upper extremities.) Skin: Normal Color Results Lab Laboratory Tests 01/29/21 04:15 01/30/21 04:35 Assessment/Plan Assessment/Plan Tele-ICU Physician , Progress Note ) Available chart/ vitals / labs / Images reviewed Video assessment done using teleICU camera, rest of exam as per RN Discussed with RN , EXAM PER RN Events overnight : increased Fio2 Afebrile I/O = POS 1800ml - 3 days positive 5L Drips: cardizem0 Pressors: , hemodynamically stable Sedation gtt: ( RASS- -2 prop 35 fnt 75 VENT SETTINGS and ABG reviewed Not candidate for SBT today REVIEWED Cardiovascular Stability / Sedation Score / FI02/PEEP / ABG / CXR Consultants: jesika Hospital course: 01-25: INTUBATED Unresponsive - Pneumonia - A Fib RVR (Now SR) - Intubated 01/28 - AC 60 % 20 450 + 5 , POS 1800ml - 3 days positive 5L- diuresis attempted - 01/29 - AC 50 % 20 450 + 5 after 3L DIURESIS, changed to DIAMOX 01/30- AC 50 % 16 450 + 5 PAP 19 A/P Acute resp failure , PNA and AECOPD - Intubated 01/25 ( unresponsive with hypercarbia , PNA ) AC 50 % 20 450 + 5 - - with change rr to 16 - resp acodosis on ABG - will try to decrease sedation vs adjust RR back - I/O = 3 days positive 5L- diuresis attempted -> improved Fio2 , WILL CONT WITH GENTLE DIURESIS WITH DIAMOX - HOPING FOR SBT when mental stus appropriate PNA ( NEG COVID PCR , NEG flu - sputm cx 01/25 - Hflu - in cefepime 01/25- 05/02 - possible aspiration 01/30 - follow AECOPD - IV steroids - decrease 01/30 again - nebs A fib RVR on presentation - converted to sinus 01/25 - >> back to a fib RVR 01/26 - cards follow - AC with eliquis -ECHO 01/26/21: LVEF 55-60%, mild to mod enlargement of LA Elevated LFT 01/30 - as per PCP exam - reglan changed to PRN , other meds ? - follow tomorrow ( NPO Chronic hypercarbic rersp failure with COPD - on NIPPV at night - ? CARA vs OHS Elevated ddimer on admission - MARCOS - US venous NEG 01/25 - already on AC , low sup for PE - will follow on Eliquis Lines : RIGHT IJ 01/25 (Central Line Necessity Reviewed) Cash: 01/25 O/30 Nutrition: TF stopped 01/28 with residuals - reglan 01/29 started - vomiting 01/30 - ON HOLD TF Analgesia: Anxiety/ delirium VTE Prophylaxis: eliquis Stress Ulcer Prophylaxis: PPI Plans in collaboration with bedside consultants and IM MDs. Discussed with RN to reach out if any questions or concerns A total of 35 minutes of critical care time was devoted to this patient today, required to treat and/or prevent further deterioration of critical care condition ( as above) . FER VAZQUEZ MD Jan 30, 2021 11:36
[2021-01-30] MEDS: DexMEDEtomidine 250 ML DRIP 250 ML IV SCH (11:42)
[2021-01-30] MEDS: VASOPRESSIN INJECTION 20 UNIT in NS (IVPB) 100 ML IV SCH ×2 (13:22→23:56)
[2021-01-30] MEDS: acetaZOLAMIDE INJ 500 MG/5 ML (DIAMOX) VIAL IV SCH ×2 (14:02→20:46)
[2021-01-30 14:45] VITALS: BP 125/75
[2021-01-30 15:36] VITALS: BP 116/79
[2021-01-30 15:58] VITALS: BP 116/79
[2021-01-30 16:30] LABS: ABG BASE EXCESS 10.2 MMOL/L (-2.5-2.5); ABG OXYGEN SATURATION 91 % (94-100); ABG PCO2 66 MMHG (35-45); ABG PH 7.35 (7.37-7.43); ABG PO2 65 MMHG (79-93); ABG TCO2 38.3 MMOL/L (21.0-31.0)
[2021-01-30 16:31] LABS: INSPIRED O2 50; PATIENT TEMP 36; VENTILATOR YES
--- NOTE | 2021-01-30 16:51 | Tele-ICU Progress Note ---
Progress Note Spontaneous Breathing Trial ( vitals /Cardiovascular Stability/Sedation Score/FI02/PEEP/ABG/CXR reviewed: No contraindications) SBT DATA: Duration 45 min, meet all required criteria Extubated without complications will need to use home setting BIPAP for nocturnal sleep - discussed Monitored via camera ( additional CCT 10 min ) Focused Exam Height, Weight, BMI Height: 6'2.00" Weight: 263lbs. 3.0oz. 119.960039ag; 40.12 BMI Method:Stated FER VAZQUEZ MD Jan 30, 2021 16:51
--- NOTE | 2021-01-30 17:32 | Progress Note - Cardiology ---
Cardiology SOAP Progress Note Subjective: Intubated, on mech vent, unable to communicate Objective: I&O/Vital Signs 01/30/21 01/30/21 01/30/21 01/30/21 06:00 06:36 07:00 07:21 Pulse 112 103 98 89 Resp 13 12 16 B/P (MAP) 113/71 118/80 Pulse Ox 91 91 90 O2 Delivery Mechanical Ventilator Mechanical Ventilator O2 Flow Rate 50.00 50.00 FiO2 50 01/30/21 01/30/21 01/30/21 01/30/21 08:00 08:00 08:00 08:34 Temp 37.3 Pulse 101 90 Resp 14 B/P (MAP) 116/78 116/79 Pulse Ox 92 90 O2 Delivery Mechanical Ventilator Mechanical Ventilator O2 Flow Rate 50.00 FiO2 50 01/30/21 01/30/21 01/30/21 01/30/21 09:00 09:16 10:00 11:00 Pulse 105 85 118 80 Resp 16 16 14 17 B/P (MAP) 122/67 122/87 122/69 Pulse Ox 92 92 95 97 O2 Delivery Mechanical Ventilator Mechanical Ventilator Mechanical Ventilator O2 Flow Rate 50.00 50.00 50.00 FiO2 50 01/30/21 01/30/21 01/30/21 01/30/21 11:42 12:00 12:00 12:00 Temp 37.0 Pulse 90 90 Resp 15 B/P (MAP) 126/73 121/72 Pulse Ox 90 90 O2 Delivery Mechanical Ventilator Mechanical Ventilator O2 Flow Rate 50.00 FiO2 50 01/30/21 01/30/21 01/30/21 01/30/21 13:00 14:45 15:36 15:58 Pulse 87 85 72 106 Resp 16 14 17 Pulse Ox 92 90 91 FiO2 50 50 50 01/30/21 01/30/21 16:00 16:22 Temp 37.0 Pulse Ox 90 O2 Delivery Mechanical Ventilator FiO2 50 01/30/21 00:00 Intake Total 1020 ml Output Total 1400 ml Balance -380 ml Weight (Pounds): 263 Weight (Ounces): 3.0 Weight (Calculated Kilograms): 119.662774 Constitutional: other (Intubated, on mech vent, unresponsive) Respiratory: chest expansion is symmetric, chest is bilaterally symmetric, rhonchi (scattered), other (intubated) Cardiovascular: irregularly irregular, tachycardia Extremities: other (bilat pitting and non-pitting edema) Neurologic/Psychiatric: other (sedated, unable to co-operate with neuro exam) Skin: normal color Results/Procedures: Labs Laboratory Tests 01/29/21 23:37: Glucometer 235H 01/30/21 04:35: White Blood Count 9.9, Red Blood Count 5.41, Hemoglobin 14.5, Hematocrit 49, Mean Corpuscular Volume 90, Mean Corpuscular Hemoglobin 27, Mean Corpuscular Hemoglobin Concent 30L, Red Cell Distribution Width 15.1H, Platelet Count 205, Mean Platelet Volume 11.0, Immature Granulocyte % (Auto) 1, Neutrophils (%) (Auto) 89H, Lymphocytes (%) (Auto) 4L, Monocytes (%) (Auto) 6, Eosinophils (%) (Auto) 0, Basophils (%) (Auto) 0, Neutrophils # (Auto) 8.8H, Lymphocytes # (Auto) 0.4L, Monocytes # (Auto) 0.6, Eosinophils # (Auto) 0.0, Basophils # (Auto) 0.0, Immature Granulocyte # (Auto) 0.1, Sodium Level 138, Potassium Level 4.7, Chloride Level 96L, Carbon Dioxide Level 35H, Anion Gap 7, Blood Urea Nitrogen 33H, Creatinine 0.93, Estimat Glomerular Filtration Rate 82, BUN/Creatinine Ratio 35, Glucose Level 249H, Calcium Level 8.5, Corrected Calcium 9.1, Phosphorus Level 3.5, Magnesium Level 2.5H, Total Bilirubin 1.0, Aspartate Amino Transf (AST/SGOT) 69H, Alanine Aminotransferase (ALT/SGPT) 134H, Alkaline Phosphatase 54, Total Protein 6.1L, Albumin 3.3 01/30/21 04:40: Blood Gas Puncture Site RIGHT RADIAL, Blood Gas Patient Temperature 36.8, Arterial Blood pH 7.32*L, Arterial Blood Partial Pressure CO2 74*H, Arterial Blood Partial Pressure O2 71L, Arterial Blood HCO3 37H, Arterial Blood Total CO2 39.5H, Arterial Blood Oxygen Saturation 92L, Arterial Blood Base Excess 10.9H, Jair Test YES-POS, Blood Gas Ventilator Setting YES, Blood Gas Inspired Oxygen 50% 01/30/21 11:25: Glucometer 270H 01/30/21 16:20: Blood Gas Puncture Site LEFT RADIAL, Blood Gas Patient Temperature 36, Arterial Blood pH 7.35L, Arterial Blood Partial Pressure CO2 66H, Arterial Blood Partial Pressure O2 65L, Arterial Blood HCO3 36H, Arterial Blood Total CO2 38.3H, Arterial Blood Oxygen Saturation 91L, Arterial Blood Base Excess 10.2H, Jair Test UNKNOWN, Blood Gas Ventilator Setting YES, Blood Gas Inspired Oxygen 50 Microbiology 01/25/21 Gram Stain - Final, Complete 01/25/21 Sputum Culture - Final, Complete Haemophilus influenza Usual upper respiratory andrew 01/25/21 Blood Culture - Final, Complete No growth 01/25/21 Urine Culture - Final, Complete NO GROWTH Laboratory Tests 01/29/21 04:15 01/30/21 04:35 A/P: Assessment: Pneumonia with resp failure requiring intubation - Echo 01/26/21: LVEF 55-60%, mild to mod enlargement of LA P. A-fib/flutter - Typical atrial flutter ablation by Dr. Rankin on 08/24/2018 - Recurrent A Fib/Fl on 08/17/20 with RVR - OAC with Eliquis - Currently a-fib with RVR - controlled with iv dilt and metoprolol HTN Tobaccoism COPD Obesity Bilat LE swelling and chronic stasis dermatitis fo the legs Plan: ICU and Hospitalist service is managing his acute resp failure Continue dilt and metoprolol iv for vent rate control Continue Eliquis for stroke prophylaxis Monitor lab closely Replace electrolytes as indicated Clinical Quality Measures AMI/AHF: Ejection Fraction %: 55 EULA COLLAZO MD FACP [facility] Jan 30, 2021 17:32
--- NOTE | 2021-01-30 20:13 | Consultation - Surgery ---
History of Present Illness History of Present Illness Patient Consulted On(martine/time) 01/30/21 19:57 Date Seen by Provider: Jan 30, 2021 Time Seen by Provider: 14:00 History of Present Illness Counts requested by Dr. Coreas for ileus likely. Patient is 60-year-old male who was found slumping down and having poor oxygenation. Patient was brought to the emergency department by EMS on 01/25/2021. Patient was intubated was admitted to the hospital for acute respiratory failure with hypoxia, and COPD exacerbation, bilateral pneumonia. Patient is currently intubated and unable to provide any information. Patient with no reported bowel movement for hospital stay. Patient did have abdominal x-ray performed today demonstrating no free air, air within the colon and low stool burden.. Allergies and Home Medications Allergies Coded Allergies: gabapentin (Verified Adverse Reaction, Mild, UPSET STOMACH, 10/27/18) naproxen (Verified Adverse Reaction, Mild, GI UPSET, 10/27/18) Patient Home Medication List Home Medication List Reviewed: Yes Acetaminophen (Tylenol Extra Strength) 500 Mg Tablet, 1,000 MG PO Q8H PRN for PAIN-MILD (1-4), (Reported) Entered as Reported by: KEELEY LINCOLN on 01/25/21 152 Last Action: Reviewed Albuterol Sulfate (Proair Hfa) 1 Puff Puff, 2 PUFF IH Q4H PRN for SHORTNESS OF BREATH, (Reported) Entered as Reported by: CLARIBEL SHIN on 07/17/17 1022 Last Action: Reviewed Apixaban (Eliquis) 5 Mg Tablet, 5 MG PO BID, (Reported) Entered as Reported by: CLARIBEL SHIN on 07/25/17 1527 Last Action: Reviewed Diltiazem HCl (Diltiazem ER) 180 Mg Capsule.er, 360 MG PO DAILY, (Reported) Entered as Reported by: KEELEY LINCOLN on 01/25/21 152 Last Action: Reviewed Fluticasone/Umeclidin/Vilanter (Trelegy Ellipta 200-62.5-25) 1 Each Blst.w.dev, 1 PUFF INH DAILY, (Reported) Entered as Reported by: KEELEY LINCOLN on 01/25/21 152 Last Action: Reviewed Furosemide (Furosemide) 40 Mg Tablet, 40 MG PO DAILY PRN for FLUID RETENTION, (Reported) Entered as Reported by: ALMA MELO on 07/16/18 1323 Last Action: Reviewed Metoprolol Succinate (Metoprolol Succinate) 100 Mg Tab.er.24h, 100 MG PO DAILY, (Reported) Entered as Reported by: ALMA MELO on 10/27/18 0812 Last Action: Reviewed Potassium Chloride (Potassium Chloride) 10 Meq Capsule.er, 10 MEQ PO BID, (Reported) Entered as Reported by: SHAZIA ALICEA on 08/24/18 1021 Last Action: Reviewed Propafenone HCl (Propafenone HCl) 225 Mg Tablet, 225 MG PO 0600.1400,2200, (Reported) Entered as Reported by: TENISHA SALDIVAR on 08/24/18 2049 Last Action: Reviewed Tizanidine HCl (Tizanidine HCl) 4 Mg Tablet, 4 MG PO DAILY PRN for MUSCLE SPASMS, (Reported) Entered as Reported by: KEELEY LINCOLN on 01/25/21 1525 Last Action: Reviewed Discontinued Medications Diltiazem HCl (Diltiazem ER) 180 Mg Tab.er.24h, 180 MG PO DAILY, (Reported) Discontinued Reason: Duplicate Order Entered as Reported by: SHAZIA ALICEA on 08/24/18 1021 Last Action: Discontinued Fluticasone/Vilanterol (Breo Ellipta 100-25 Mcg INH) 1 Each Blst.w.dev, 1 EACH IH DAILY, (Reported) Discontinued Reason: No Longer Taking Entered as Reported by: SHAZIA ALICEA on 08/24/18 1021 Last Action: Discontinued Hydrocodone Bit/Acetaminophen (HYDROcodone/APAP 7.5/325 TAB) 1 Each Tablet, 1 TAB PO Q4H Discontinued Reason: No Longer Taking Prescribed by: MATT SEAY on 11/04/18 1143 Last Action: Discontinued Past Gvdippv-Ruhcfr-Unhmil Hx Patient Social History Drug of Choice: PAST HX Smoking Status: Unknown if Ever Smoked Former Smoker, Quit: Jul 17, 2017 Type Used: Cigarettes 2nd Hand Smoke Exposure: Yes Recent Hopitalizations: No Alcohol Use?: No Have you traveled recently?: No Immunizations Up To Date Tetanus Booster (TDap): Unknown Date of Pneumonia Vaccine: Jul 19, 2017 Date of Influenza Vaccine: Jul 19, 2017 Seasonal Allergies Seasonal Allergies: Yes Surgeries History of Surgeries: Yes (GANGLION CYST, NECK FUSION, CARDIAC ABLATION) Respiratory History of Respiratory Disorde: Yes (O2 3L CONT) Respiratory Disorders: Sleep Apnea, COPD Cardiovascular History of Cardiac Disorders: Yes (AFLUTTER) Cardiac Disorders: Hypertension Neurological History of Neurological Disord: No Reproductive System Hx Reproductive Disorders: No Sexually Transmitted Disease: No HIV/AIDS: No Genitourinary History of Genitourinary Disor: No Gastrointestinal History of Gastrointestinal Di: Yes Musculoskeletal History of Musculoskeletal Dis: No Endocrine History of Endocrine Disorders: No HEENT History of HEENT Disorders: Yes (GLASSES) HEENT Disorders: Cataract Loss of Vision: Bilateral Cancer History of Cancer: No Psychosocial History of Psychiatric Problem: No Integumentary History of Skin or Integumenta: No Blood Transfusions History of Blood Disorders: No Adverse Reaction to a Blood Tr: No (N/A) Reviewed Nursing Assessment Reviewed/Agree w Nursing PMH: Yes Family Medical History Significant Family History: Heart Disease, Cancer, CAD Under 55 Years Old Review of Systems-General ROS-Unable to Obtain: Unable to be obtained due to patient being intubated and sedated Physical Exam-General Problems Physical Exam Vital Signs Vital Signs - First Documented 01/25/21 01/25/21 01/25/21 06:35 07:15 09:06 Temp 37.0 Pulse 161 Resp 21 B/P (MAP) 143/118 (126) Pulse Ox 96 O2 Delivery NIV Bilevel O2 Flow Rate 50.00 FiO2 70 Capillary Refill : Less Than 3 Seconds General Appearance: no apparent distress, other (Intubated and sedated) HEENT: normal ENT inspection, other (Orotracheal tube and nasogastric tube) Neck: supple, normal inspection Respiratory: no accessory muscle use, other (Equal chest rise) Cardiovascular: regular rate, rhythm, no JVD Gastrointestinal: soft, other (Obese and questionable minimal distention of abdomen) Rectal: deferred Extremities: swelling (Chronic skin changes bilateral lower extremity) Neurologic/Psychiatric: No alert, No oriented x 3; other (Intubated and sedated) Skin: warm/dry (Chronic bilateral lower extremity skin changes) Lymphatic: no adenopathy Data Review Labs Laboratory Tests 01/29/21 23:37: Glucometer 235H 01/30/21 04:35: White Blood Count 9.9, Red Blood Count 5.41, Hemoglobin 14.5, Hematocrit 49, Mean Corpuscular Volume 90, Mean Corpuscular Hemoglobin 27, Mean Corpuscular Hemoglobin Concent 30L, Red Cell Distribution Width 15.1H, Platelet Count 205, Mean Platelet Volume 11.0, Immature Granulocyte % (Auto) 1, Neutrophils (%) (Auto) 89H, Lymphocytes (%) (Auto) 4L, Monocytes (%) (Auto) 6, Eosinophils (%) (Auto) 0, Basophils (%) (Auto) 0, Neutrophils # (Auto) 8.8H, Lymphocytes # (Auto) 0.4L, Monocytes # (Auto) 0.6, Eosinophils # (Auto) 0.0, Basophils # (Auto) 0.0, Immature Granulocyte # (Auto) 0.1, Sodium Level 138, Potassium Level 4.7, Chloride Level 96L, Carbon Dioxide Level 35H, Anion Gap 7, Blood Urea Nitrogen 33H, Creatinine 0.93, Estimat Glomerular Filtration Rate 82, BUN/Creatinine Ratio 35, Glucose Level 249H, Calcium Level 8.5, Corrected Calcium 9.1, Phosphorus Level 3.5, Magnesium Level 2.5H, Total Bilirubin 1.0, Aspartate Amino Transf (AST/SGOT) 69H, Alanine Aminotransferase (ALT/SGPT) 134H, Alkaline Phosphatase 54, Total Protein 6.1L, Albumin 3.3 01/30/21 04:40: Blood Gas Puncture Site RIGHT RADIAL, Blood Gas Patient Temperature 36.8, Arterial Blood pH 7.32*L, Arterial Blood Partial Pressure CO2 74*H, Arterial Blood Partial Pressure O2 71L, Arterial Blood HCO3 37H, Arterial Blood Total CO2 39.5H, Arterial Blood Oxygen Saturation 92L, Arterial Blood Base Excess 10.9H, Jair Test YES-POS, Blood Gas Ventilator Setting YES, Blood Gas Inspired Oxygen 50% 01/30/21 11:25: Glucometer 270H 01/30/21 16:20: Blood Gas Puncture Site LEFT RADIAL, Blood Gas Patient Temperature 36, Arterial Blood pH 7.35L, Arterial Blood Partial Pressure CO2 66H, Arterial Blood Partial Pressure O2 65L, Arterial Blood HCO3 36H, Arterial Blood Total CO2 38.3H, Arterial Blood Oxygen Saturation 91L, Arterial Blood Base Excess 10.2H, Jair Test UNKNOWN, Blood Gas Ventilator Setting YES, Blood Gas Inspired Oxygen 50 01/30/21 17:55: Glucometer 257H Microbiology 01/25/21 Gram Stain - Final, Complete 01/25/21 Sputum Culture - Final, Complete Haemophilus influenza Usual upper respiratory andrew 01/25/21 Blood Culture - Final, Complete No growth 01/25/21 Urine Culture - Final, Complete NO GROWTH Assessment/Plan Assessment/Plan Assessment/Plan Acute respiratory failure with hypoxia Bilateral pneumonia COPD exacerbation Patient intubated and sedated at this time. Abdominal x-ray having no significant stool burden and does have some air in the colon but no distention or free air. Would benefit from enteral nutrition if not likely to be extubated soon. Would continue with medical management. Clinical Quality Measures AMI/AHF: Ejection Fraction %: 55 SHAHIDA KHAN DO Jan 30, 2021 20:13
[2021-01-31] MEDS: meTOprolol 5 MG/5 ML (LOPRESSOR) VIAL IV SCH ×5 (00:21→12:05)
[2021-01-31 02:03] VITALS: BP 107/84
[2021-01-31] MEDS: RT-ALBUTEROL/IPRATROPIUM 3 ML (DUONEB) VIAL INH SCH ×6 (02:03→22:14)
[2021-01-31] MEDS: PROPOFOL DRIP (ICU) 100 ML IV SCH ×2 (02:26→13:23)
[2021-01-31 04:59] LABS: BASOPHILS % (AUTO) 0 % (0-10); EOSINOPHILS % (AUTO) 0 % (0-10); HEMATOCRIT 50 % (40-54); HEMOGLOBIN 15.2 g/dL (13.3-17.7); LYMPHOCYTES # (AUTO) 0.4 10^3/uL (1.0-4.0); LYMPHOCYTES % (AUTO) 3 % (12-44); MEAN CORPUSCULAR HEMOGLOBIN 27 pg (25-34); MEAN CORPUSCULAR HGB CONC 30 g/dL (32-36); MEAN CORPUSCULAR VOLUME 90 fL (80-99); MEAN PLATELET VOLUME 11.1 fL (9.0-12.2); MONOCYTES # (AUTO) 1.3 10^3/uL (0.0-1.0); MONOCYTES % (AUTO) 9 % (0-12); NEUTROPHILS # (AUTO) 12.3 10^3/uL (1.8-7.8); NEUTROPHILS % (AUTO) 87 % (42-75); PLATELET COUNT 207 10^3/uL (130-400); WHITE BLOOD COUNT 14.1 10^3/uL (4.3-11.0)
[2021-01-31 05:06] LABS: ALBUMIN 3.5 GM/DL (3.2-4.5)
[2021-01-31 05:08] LABS: CALCIUM 8.6 MG/DL (8.5-10.1)
[2021-01-31 05:09] LABS: TOTAL PROTEIN 6.3 GM/DL (6.4-8.2)
[2021-01-31 05:10] LABS: BILIRUBIN,TOTAL 1.5 MG/DL (0.1-1.0)
[2021-01-31 05:12] LABS: PHOSPHORUS 2.5 MG/DL (2.3-4.7)
[2021-01-31 05:13] LABS: CREATININE SERUM 0.88 MG/DL (0.60-1.30)
[2021-01-31 05:14] LABS: BILIRUBIN,INDIRECT 0.5 MG/DL
[2021-01-31 05:15] LABS: MAGNESIUM 2.5 MG/DL (1.6-2.4)
[2021-01-31] MEDS: dilTIAZem DRIP PRE-MIX 125 ML IV SCH ×3 (05:59→19:15)
[2021-01-31] MEDS: KCL 20 MEQ TAB (K-DUR) PO SCH (06:11)
[2021-01-31] MEDS: POTASSIUM CL 10MEQ/50ML IVPB 50 ML IV SCH (06:11)
[2021-01-31] MEDS: MAGNESIUM 1 GM/100 ML IVPB 100 ML IV SCH (06:11)
[2021-01-31] MEDS: inSUlin ASPART (NovoLOG) 1 UNIT/0.01 ML (CHARGE PER UNIT) SC SCH ×4 (06:11→20:08)
--- NOTE | 2021-01-31 07:27 | Progress Note - Surgery ---
DONNA MUJICA 01/31/21 0727: Subjective Time Seen by a Provider: 07:15 Subjective/Events-last exam Patient was extubated and is doing well. He is still on Cefepime. He denies CP, N/V, abdominal pain, and is unsure about his bowel movement. Objective Exam Vital Signs Date Time Temp Pulse Resp B/P (MAP) Pulse Ox O2 Delivery O2 Flow Rate FiO2 01/31/21 07:07 94 High Flow N/C 12.00 01/31/21 06:00 134 20 111/72 92 High Flow N/C 12.00 01/31/21 05:00 124 11 104/77 89 High Flow N/C 12.00 01/31/21 04:49 High Flow N/C 12.00 01/31/21 04:00 92 NIV Bilevel 60 01/31/21 04:00 128 11 109/69 95 NIV Bilevel 60.00 01/31/21 03:00 121 22 108/84 94 NIV Bilevel 60.00 01/31/21 02:09 NIV Bilevel 60.00 01/31/21 02:03 88 17 94 60.00 01/31/21 02:00 105 17 107/84 90 High Flow N/C 12.00 01/31/21 01:00 135 01/31/21 01:00 135 24 123/77 High Flow N/C 12.00 01/31/21 00:20 36.7 01/31/21 00:00 90 High Flow N/C 12.00 01/31/21 00:00 113 14 119/90 91 High Flow N/C 12.00 01/30/21 23:00 152 22 104/69 88 High Flow N/C 12.00 01/30/21 22:00 125 22 118/96 89 High Flow N/C 12.00 01/30/21 21:40 92 High Flow N/C 12.00 01/30/21 21:00 141 21 129/80 91 High Flow N/C 12.00 01/30/21 20:41 36.8 01/30/21 20:00 101 17 117/74 91 High Flow N/C 12.00 01/30/21 20:00 92 High Flow N/C 12.00 01/30/21 19:00 76 10/5/21 19:00 76 18 121/68 91 High Flow N/C 12.00 01/30/21 19:00 High Flow N/C 12.00 01/30/21 18:57 92 High Flow N/C 12.00 01/30/21 18:00 78 20 112/71 92 Mechanical Ventilator 50.00 01/30/21 17:00 82 21 111/75 91 Mechanical Ventilator 50.00 01/30/21 16:22 37.0 01/30/21 16:00 90 Mechanical Ventilator 50 01/30/21 16:00 87 13 121/83 91 Mechanical Ventilator 50.00 01/30/21 15:58 106 17 91 50 01/30/21 15:36 72 14 90 50 01/30/21 15:00 84 13 100/68 91 Mechanical Ventilator 50.00 01/30/21 14:45 85 16 92 50 01/30/21 14:00 79 20 125/74 90 Mechanical Ventilator 50.00 01/30/21 13:00 87 01/30/21 13:00 74 14 118/72 90 Mechanical Ventilator 50.00 01/30/21 12:00 37.0 01/30/21 12:00 90 15 121/72 90 Mechanical Ventilator 50.00 01/30/21 12:00 90 Mechanical Ventilator 50 01/30/21 11:42 90 126/73 01/30/21 11:00 80 17 122/69 97 Mechanical Ventilator 50.00 01/30/21 10:00 118 14 122/87 95 Mechanical Ventilator 50.00 01/30/21 09:16 85 16 92 50 01/30/21 09:00 105 16 122/67 92 Mechanical Ventilator 50.00 01/30/21 08:34 90 116/79 01/30/21 08:00 37.3 01/30/21 08:00 90 Mechanical Ventilator 50 01/30/21 08:00 101 14 116/78 92 Mechanical Ventilator 50.00 I & O 01/31/21 07:00 Intake Total 1588 ml Output Total 2425 ml Balance -837 ml Capillary Refill : Less Than 3 Seconds General Appearance: No Apparent Distress, WD/WN, Chronically ill, Obese HEENT: PERRL/EOMI, Pharynx Normal Neck: Non Tender, Supple Respiratory: No Accessory Muscle Use, Decreased Breath Sounds, Wheezing Cardiovascular: Irregularly Irregular, Tachycardia Gastrointestinal: soft, other (Obese and questionable minimal distention of abdomen) Extremity: Pedal Edema (4+ to level above knees bilateral.), Other (Venous stasis changes noted to bilateral lower extremities) Neurologic/Psychiatric: Alert, Oriented x3; No Facial Droop; Other (has trouble with depth perception ) Skin: Normal Color Results Lab Laboratory Tests 01/30/21 11:25: Glucometer 270H 01/30/21 16:20: Blood Gas Puncture Site LEFT RADIAL, Blood Gas Patient Temperature 36, Arterial Blood pH 7.35L, Arterial Blood Partial Pressure CO2 66H, Arterial Blood Partial Pressure O2 65L, Arterial Blood HCO3 36H, Arterial Blood Total CO2 38.3H, Arterial Blood Oxygen Saturation 91L, Arterial Blood Base Excess 10.2H, Jair Test UNKNOWN, Blood Gas Ventilator Setting YES, Blood Gas Inspired Oxygen 50 01/30/21 17:55: Glucometer 257H 01/31/21 04:50: White Blood Count 14.1H, Red Blood Count 5.57H, Hemoglobin 15.2, Hematocrit 50, Mean Corpuscular Volume 90, Mean Corpuscular Hemoglobin 27, Mean Corpuscular Hemoglobin Concent 30L, Red Cell Distribution Width 15.2H, Platelet Count 207, Mean Platelet Volume 11.1, Immature Granulocyte % (Auto) 1, Neutrophils (%) (Auto) 87H, Lymphocytes (%) (Auto) 3L, Monocytes (%) (Auto) 9, Eosinophils (%) (Auto) 0, Basophils (%) (Auto) 0, Neutrophils # (Auto) 12.3H, Lymphocytes # (Auto) 0.4L, Monocytes # (Auto) 1.3H, Eosinophils # (Auto) 0.0, Basophils # (Auto) 0.0, Immature Granulocyte # (Auto) 0.1, Sodium Level 140, Potassium Level 4.0, Chloride Level 98, Carbon Dioxide Level 32, Anion Gap 10, Blood Urea Nitrogen 36H, Creatinine 0.88, Estimat Glomerular Filtration Rate 88, BUN/Creatinine Ratio 41, Glucose Level 186H, Calcium Level 8.6, Corrected Calcium 9.0, Phosphorus Level 2.5, Magnesium Level 2.5H, Total Bilirubin 1.5H, Direct Bilirubin 1.0H, Indirect Bilirubin 0.5, Aspartate Amino Transf (AST/SGOT) 88H, Alanine Aminotransferase (ALT/SGPT) 237H, Alkaline Phosphatase 62, Total Protein 6.3L, Albumin 3.5 Microbiology 01/25/21 Gram Stain - Final, Complete 01/25/21 Sputum Culture - Final, Complete Haemophilus influenza Usual upper respiratory andrew 01/25/21 Blood Culture - Final, Complete No growth 01/25/21 Urine Culture - Final, Complete NO GROWTH Assessment/Plan Assessment/Plan Assessment/Plan Acute respiratory failure with hypoxia Bilateral pneumonia COPD exacerbation Patient exubated. Abdominal x-ray having no significant stool burden and does have some air in the colon but no distention or free air. Would continue with medical management. Clinical Quality Measures AMI/AHF: Ejection Fraction %: 55 SHAHIDA BURKS DO 01/31/212120: Subjective Subjective/Events-last exam Patient has been extubated. Patient states that he is tolerating diet. Patient is not having any abdominal pain. He is passing flatus. He has no other complaints at this time he denies any nausea vomiting fever sweats chills shortness of breath or chest pain. Objective Exam General Appearance: No Apparent Distress, Chronically ill, Obese HEENT: PERRL/EOMI, Normal ENT Inspection Neck: Non Tender, Supple Respiratory: Chest Non Tender, No Accessory Muscle Use, No Respiratory Distress Cardiovascular: Irregularly Irregular, Tachycardia Gastrointestinal: non tender, soft Extremity: Pedal Edema (4+ to level above knees bilateral.), Swelling, Other (Venous stasis changes noted to bilateral lower extremities) Neurologic/Psychiatric: Alert, Oriented x3 Skin: Normal Color Lymphatic: No Adenopathy Assessment/Plan Assessment/Plan Assessment/Plan Acute respiratory failure with hypoxia Bilateral pneumonia COPD exacerbation Patient has been extubated. He is not having any abdominal pain I do not feel that he has an ileus. Patient is having flatus and tolerating diet. Will sign off please call if needed. Supervisory-Addendum Brief Verification & Attestation Participated in pt care: history, MDM, physical Personally performed: exam, history, MDM, supervision of care Care discussed with: Medical Student Procedures: n/a Results interpretation: Verified all documentation Verification and Attestation of Medical Student E/M Service A medical student performed and documented this service in my presence. I reviewed and verified all information documented by the medical student and made modifications to such information, when appropriate. I personally performed the physical exam and medical decision making. Shahida Burks, Jan 31, 2021,21:20 DONNA MUJICA Jan 31, 2021 07:27 SHAHIDA BURKS DO Jan 31, 2021 21:21
[2021-01-31] MEDS: NOREPINEPHRINE 8 MG/250 ML 250 ML IV SCH ×2 (07:42→19:32)
[2021-01-31] MEDS: VASOPRESSIN INJECTION 20 UNIT in NS (IVPB) 100 ML IV SCH ×2 (07:43→22:08)
[2021-01-31] MEDS: PANTOPRAZOLE 40 MG (PROTONIX) VIAL IV SCH (08:04)
[2021-01-31] MEDS: methylPREDNISolone 40 MG/ML (Solu-MEDROL) VIAL IV SCH ×2 (08:04→20:23)
[2021-01-31] MEDS: APIXABAN 5 MG (ELIQUIS) TABLET PO SCH ×2 (08:04→20:23)
[2021-01-31] MEDS: MICONAZOLE 2% POWDER (DESENEX AF) 90 GM TOP SCH ×2 (08:04→20:32)
[2021-01-31] MEDS: acetaZOLAMIDE INJ 500 MG/5 ML (DIAMOX) VIAL IV SCH ×2 (08:09→20:23)
--- NOTE | 2021-01-31 08:50 | Tele-ICU Progress Note ---
Subjective Date Seen by a Provider: Jan 31, 2021 Time Seen by a Provider: 08:45 Subjective/Events-last exam admitted with AECOPD, PNA, a fib with RVR-HR still high at 130, on IV cardizem for rate control @ 15, V rate still high at 80-100 was intubated, extubated yesterday on hi flow oxygen 12 lpm , SpO2 94%, spont RR 20, last ABG 01/30 7.35/66/65 Also on Apixiban, Medrol, Diamox, CXR looks ok Uses BiPAP at night for CARA Sepsis Event Evaluation Height, Weight, BMI Height: 6'2.00" Weight: 263lbs. 3.0oz. 119.548780kr; 40.12 BMI Method:Stated Exam Exam Patient acknowledged, consented, and participated in this virtual visit which was conducted using real time audio/video Vital Signs Date Time Temp Pulse Resp B/P (MAP) Pulse Ox O2 Delivery O2 Flow Rate FiO2 01/31/21 07:51 36.9 01/31/21 07:07 94 High Flow N/C 12.00 01/31/21 06:00 134 20 111/72 92 High Flow N/C 12.00 01/31/21 05:00 124 11 104/77 89 High Flow N/C 12.00 01/31/21 04:49 High Flow N/C 12.00 01/31/21 04:00 92 NIV Bilevel 60 01/31/21 04:00 128 11 109/69 95 NIV Bilevel 60.00 01/31/21 03:00 121 22 108/84 94 NIV Bilevel 60.00 01/31/21 02:09 NIV Bilevel 60.00 01/31/21 02:03 88 17 94 60.00 01/31/21 02:00 105 17 107/84 90 High Flow N/C 12.00 01/31/21 01:00 135 01/31/21 01:00 135 24 123/77 High Flow N/C 12.00 01/31/21 00:20 36.7 01/31/21 00:00 90 High Flow N/C 12.00 01/31/21 00:00 113 14 119/90 91 High Flow N/C 12.00 01/30/21 23:00 152 22 104/69 88 High Flow N/C 12.00 01/30/21 22:00 125 22 118/96 89 High Flow N/C 12.00 01/30/21 21:40 92 High Flow N/C 12.00 01/30/21 21:00 141 21 129/80 91 High Flow N/C 12.00 01/30/21 20:41 36.8 01/30/21 20:00 101 17 117/74 91 High Flow N/C 12.00 01/30/21 20:00 92 High Flow N/C 12.00 01/30/21 19:00 76 01/30/21 19:00 76 18 121/68 91 High Flow N/C 12.00 01/30/21 19:00 High Flow N/C 12.00 01/30/21 18:57 92 High Flow N/C 12.00 01/30/21 18:00 78 20 112/71 92 Mechanical Ventilator 50.00 01/30/21 17:00 82 21 111/75 91 Mechanical Ventilator 50.00 01/30/21 16:22 37.0 01/30/21 16:00 90 Mechanical Ventilator 50 01/30/21 16:00 87 13 121/83 91 Mechanical Ventilator 50.00 01/30/21 15:58 106 17 91 50 01/30/21 15:36 72 14 90 50 01/30/21 15:00 84 13 100/68 91 Mechanical Ventilator 50.00 01/30/21 14:45 85 16 92 50 01/30/21 14:00 79 20 125/74 90 Mechanical Ventilator 50.00 01/30/21 13:00 87 01/30/21 13:00 74 14 118/72 90 Mechanical Ventilator 50.00 01/30/21 12:00 37.0 01/30/21 12:00 90 15 121/72 90 Mechanical Ventilator 50.00 01/30/21 12:00 90 Mechanical Ventilator 50 01/30/21 11:42 90 126/73 01/30/21 11:00 80 17 122/69 97 Mechanical Ventilator 50.00 01/30/21 10:00 118 14 122/87 95 Mechanical Ventilator 50.00 01/30/21 09:16 85 16 92 50 01/30/21 09:00 105 16 122/67 92 Mechanical Ventilator 50.00 I & O 01/31/21 07:00 Intake Total 1588 ml Output Total 2425 ml Balance -837 ml Height & Weight Height: 6'2.00" Weight: 263lbs. 3.0oz. 119.009662dc; 40.12 BMI Method:Stated General Appearance: No Apparent Distress, WD/WN, Chronically ill, Obese HEENT: PERRL/EOMI, Pharynx Normal Neck: Non Tender, Supple Respiratory: No Accessory Muscle Use, Decreased Breath Sounds, Wheezing Cardiovascular: Irregularly Irregular, Tachycardia Capillary Refill: Less Than 3 Seconds Gastrointestinal: normal bowel sounds, non tender, soft, other (Obese and questionable minimal distention of abdomen) Extremity: Pedal Edema (4+ to level above knees bilateral.), Other (Venous stasis changes noted to bilateral lower extremities) Neurologic/Psychiatric: Alert, Oriented x3; No Facial Droop; Other (has trouble with depth perception ) Skin: Normal Color Results Lab Laboratory Tests 01/30/21 04:35 01/31/21 04:50 Assessment/Plan Assessment/Plan Acute resp failure , PNA and AECOPD - Intubated 01/25 ( unresponsive with hypercarbia , PNA ) AC 50 % 20 450 + 5 - - with change rr to 16 - resp acodosis on ABG - will try to decrease sedation vs adjust RR back - I/O = 3 days positive 5L- diuresis attempted -> improved Fio2 , WILL CONT WITH GENTLE DIURESIS WITH DIAMOX - 01/31 Extubated yesterday, on 12 lpm vapotherm, doing well, will continue PNA ( NEG COVID PCR , NEG flu - sputm cx 01/25 - Hflu - in cefepime 01/25- 05/02 - possible aspiration 01/30 - follow AECOPD - IV steroids - decrease 01/30 again - nebs A fib RVR on presentation - converted to sinus 01/25 - >> back to a fib RVR 01/26 - cards follow - AC with eliquis -ECHO 01/26/21: LVEF 55-60%, mild to mod enlargement of LA Elevated LFT 01/30 - as per PCP exam - reglan changed to PRN , other meds ? - follow tomorrow ( NPO Chronic hypercarbic rersp failure with COPD - on NIPPV at night - ? CARA vs OHS Elevated ddimer on admission - MARCOS - US venous NEG 01/25 - already on AC , low sup for PE - will follow on Eliquis Lines : RIGHT IJ 01/25 (Central Line Necessity Reviewed) Cash: 01/25 O/30 Nutrition: TF stopped 01/28 with residuals - reglan 01/29 started - vomiting 01/30 - ON HOLD TF Analgesia: Anxiety/ delirium VTE Prophylaxis: eliquis Stress Ulcer Prophylaxis: PPI Critical Care: Critically Ill Patient Time spent with patient (mins): 25 JAVI TRISTAN MD Jan 31, 2021 08:50
[2021-01-31] MEDS: fentaNYL DRIP PRE-MIX 250 ML IV SCH (13:23)
--- NOTE | 2021-01-31 13:28 | Progress Note - Hospitalist ---
TOMMIE PUCKETT 01/31/21 1328: Subjective HPI/CC On Admission Date Seen by Provider: Jan 31, 2021 Time Seen by Provider: 09:40 COPD exacerbation Bilateral pneumonia Respiratory failure Subjective/Events-last exam Pt extubated, now on nasal cannula Abd Xray showed no sig stool burden, no distention of free air Alert and talking, "feeling great, 100% better" No pain Drinking, would like to eat Bilat feet swelling Sig lab values: ALT 237 ABG 7.35/66/65 Review of Systems General: Appetite Cardiovascular: Edema (bilat pedal) Focused Exam Respiratory: No Accessory Muscle Use, Wheezing Cardiovascular: No Murmur, Tachycardia Skin: normal color Objective Exam Vital Signs Vital Signs Date Time Temp Pulse Resp B/P (MAP) Pulse Ox O2 Delivery O2 Flow Rate FiO2 01/31/21 12:00 92 High Flow N/C 12.00 01/31/21 07:51 36.9 01/31/21 07:00 106 01/31/21 06:00 20 111/72 01/31/21 04:00 60 Capillary Refill : Less Than 3 Seconds General Appearance: No Apparent Distress, Obese Respiratory: No Accessory Muscle Use, Wheezing Cardiovascular: No Murmur, Tachycardia Extremity: Pedal Edema (bilat) Neurologic/Psychiatric: Alert, Oriented x3 Skin: Normal Color Results/Procedures Lab Laboratory Tests 01/31/21 04:50 Patient resulted labs reviewed. Assessment/Plan Assessment and Plan Assess & Plan/Chief Complaint Assessment Chronic respiratory failure Atrial fibrillation with rapid ventricular response Obesity Bibasilar pulmonary opacities on Xray Plan: Begin solid food Continue to monitor Move to 4th floor tomorrow Will require nocturnal Bipap if pt will cooperate Atrial fibrillation management Oral anticoagulation for stroke prophylaxis Diagnosis/Problems Diagnosis/Problems (1) COPD exacerbation Status: Acute (2) DVT prophylaxis Status: Acute (3) Bilateral pneumonia Status: Acute Qualifiers: Qualified Codes: J18.9 - Pneumonia, unspecified organism (4) Respiratory failure with hypoxia and hypercapnia Status: Acute Qualifiers: Qualified Codes: J96.01 - Acute respiratory failure with hypoxia; J96.02 - Acute respiratory failure with hypercapnia (5) Afib Clinical Quality Measures AMI/AHF: Ejection Fraction %: 55 GHAZALA HARRELL DO 02/01/21 0523: Subjective Subjective/Events-last exam Pt extubated today Lungs are a bit wheezy but very appreciative ALT of 237 ABG 7.35/66 CO2 Abdominal xray showed no acute abnormality Edema in his feet will be monitored PT and OT will be ordered Review of Systems General: Fatigue Objective Exam General Appearance: No Apparent Distress, WD/WN, Obese Respiratory: Decreased Breath Sounds Cardiovascular: Regular Rate, Rhythm Assessment/Plan Assessment and Plan Assess & Plan/Chief Complaint Continue aggressive treatment Status post extubation PT and OT Supervisory-Addendum Brief Verification & Attestation Participated in pt care: history, MDM, physical Personally performed: exam, history, MDM, supervision of care Care discussed with: Medical Student Procedures: n/a Results interpretation: Verified all documentation Verification and Attestation of Medical Student E/M Service A medical student performed and documented this service in my presence. I reviewed and verified all information documented by the medical student and made modifications to such information, when appropriate. I personally performed the physical exam and medical decision making. Ghazala Harrell, Feb 01, 2021,05:22 TOMMIE PUCKETT Jan 31, 2021 13:28 GHAZALA HARRELL DO Feb 01, 2021 05:23
--- NOTE | 2021-01-31 13:53 | Progress Note - Cardiology ---
Cardiology SOAP Progress Note Subjective: Shortness of breath is better Gen malaise present No n/v/d No cp or palp or syncope Ankle swelling is chronic Objective: I&O/Vital Signs 01/31/21 01/31/21 01/31/21 01/31/21 02:00 02:03 02:09 03:00 Pulse 105 88 121 Resp 17 17 22 B/P (MAP) 107/84 108/84 Pulse Ox 90 94 94 O2 Delivery High Flow N/C NIV Bilevel NIV Bilevel O2 Flow Rate 12.00 60.00 60.00 60.00 01/31/21 01/31/21 01/31/21 01/31/21 04:00 04:00 04:49 05:00 Pulse 128 124 Resp 11 11 B/P (MAP) 109/69 104/77 Pulse Ox 95 92 89 O2 Delivery NIV Bilevel NIV Bilevel High Flow N/C High Flow N/C O2 Flow Rate 60.00 12.00 12.00 FiO2 60 01/31/21 01/31/21 01/31/21 01/31/21 06:00 07:00 07:07 07:51 Temp 36.9 Pulse 134 106 Resp 20 B/P (MAP) 111/72 Pulse Ox 92 94 O2 Delivery High Flow N/C High Flow N/C O2 Flow Rate 12.00 12.00 01/31/21 01/31/21 01/31/21 08:00 10:29 12:00 Pulse Ox 92 94 92 O2 Delivery High Flow N/C High Flow N/C High Flow N/C O2 Flow Rate 12.00 12.00 12.00 01/31/21 00:00 Intake Total 290 ml Output Total 1125 ml Balance -835 ml Weight (Pounds): 263 Weight (Ounces): 3.0 Weight (Calculated Kilograms): 119.057904 Constitutional: AAO x 3, other Respiratory: chest expansion is symmetric, chest is bilaterally symmetric, rhonchi (scattered), other (intubated) Cardiovascular: irregularly irregular, tachycardia Extremities: other (bilat pitting and non-pitting edema) Neurologic/Psychiatric: oriented x 3, other (moves all limbs equally) Skin: other (chronic thickening of the skin of the legs and chronic swelling of the legs (bilat)) Results/Procedures: Labs Laboratory Tests 01/30/21 16:20: Blood Gas Puncture Site LEFT RADIAL, Blood Gas Patient Temperature 36, Arterial Blood pH 7.35L, Arterial Blood Partial Pressure CO2 66H, Arterial Blood Partial Pressure O2 65L, Arterial Blood HCO3 36H, Arterial Blood Total CO2 38.3H, Arterial Blood Oxygen Saturation 91L, Arterial Blood Base Excess 10.2H, Jair Test UNKNOWN, Blood Gas Ventilator Setting YES, Blood Gas Inspired Oxygen 50 01/30/21 17:55: Glucometer 257H 01/31/21 04:50: White Blood Count 14.1H, Red Blood Count 5.57H, Hemoglobin 15.2, Hematocrit 50, Mean Corpuscular Volume 90, Mean Corpuscular Hemoglobin 27, Mean Corpuscular Hemoglobin Concent 30L, Red Cell Distribution Width 15.2H, Platelet Count 207, Mean Platelet Volume 11.1, Immature Granulocyte % (Auto) 1, Neutrophils (%) (Auto) 87H, Lymphocytes (%) (Auto) 3L, Monocytes (%) (Auto) 9, Eosinophils (%) (Auto) 0, Basophils (%) (Auto) 0, Neutrophils # (Auto) 12.3H, Lymphocytes # (Auto) 0.4L, Monocytes # (Auto) 1.3H, Eosinophils # (Auto) 0.0, Basophils # (Auto) 0.0, Immature Granulocyte # (Auto) 0.1, Sodium Level 140, Potassium Level 4.0, Chloride Level 98, Carbon Dioxide Level 32, Anion Gap 10, Blood Urea Nitrogen 36H, Creatinine 0.88, Estimat Glomerular Filtration Rate 88, BUN/Creatinine Ratio 41, Glucose Level 186H, Calcium Level 8.6, Corrected Calcium 9.0, Phosphorus Level 2.5, Magnesium Level 2.5H, Total Bilirubin 1.5H, Direct Bilirubin 1.0H, Indirect Bilirubin 0.5, Aspartate Amino Transf (AST/SGOT) 88H, Alanine Aminotransferase (ALT/SGPT) 237H, Alkaline Phosphatase 62, Total Protein 6.3L, Albumin 3.5 01/31/21 10:57: Glucometer 168H Microbiology 01/25/21 Gram Stain - Final, Complete 01/25/21 Sputum Culture - Final, Complete Haemophilus influenza Usual upper respiratory andrew 01/25/21 Blood Culture - Final, Complete No growth 01/25/21 Urine Culture - Final, Complete NO GROWTH A/P: Assessment: Pneumonia with resp failure requiring intubation - Echo 01/26/21: LVEF 55-60%, mild to mod enlargement of LA P. A-fib/flutter - Typical atrial flutter ablation by Dr. Rankin on 08/24/2018 - Recurrent A Fib/Fl on 08/17/20 with RVR - OAC with Eliquis - Currently a-fib with RVR - controlled with iv dilt and metoprolol HTN Tobaccoism COPD Obesity Bilat LE swelling and chronic stasis dermatitis fo the legs Plan: ICU and Hospitalist service is managing his acute resp failure Continue dilt and metoprolol iv for vent rate control Continue Eliquis for stroke prophylaxis Monitor lab closely Replace electrolytes as indicated Advised to quit smoking. He says he will Clinical Quality Measures AMI/AHF: Ejection Fraction %: 55 EULA COLLAZO MD FACP [facility] Jan 31, 2021 13:53
--- NOTE | 2021-01-31 14:02 | Physical Therapy Evaluation ---
PT Evaluation-General Medical Diagnosis Admission Date Jan 25, 2021 at 08:28 Medical Diagnosis: COPD exacerbation, resp failure Onset Date: Jan 25, 2021 Therapy Diagnosis Therapy Diagnosis: impaired mobility, strength, endurance Height/Weight Height (Feet): 6 Height (Inches): 2.00 Weight (Pounds): 263 Weight (Ounces): 3.0 Precautions Precautions/Isolations: Fall Prevention, Standard Precautions Referral Physician: Ghazala Coreas DO Reason for Referral: Evaluation/Treatment Medical History Additional Medical History Past Medical History Remote history of IV drug abuse COPD Tobacco abuse h/o Atrial flutter that converted to SR spontaneously Paroxysmal Atrial fibillation with normal BRAEDEN HLD Reviewed History: Yes Social History Home: Single Level Current Living Status: Spouse Entry Into Home: Stairs With Railing PT Steps Into Home: 2 Prior Prior Level of Function SCALE: Activities may be completed with or without assistive devices. 2-Bfjuchsgjd-fdjhstg completes the activity by him/herself with no assistance from a helper. 5-Set-up or Clean-up Assistance-helper sets up or cleans up; patient completes activity. [place] assists only prior to or following the activity. 4-Supervision or Touching Assistance-helper provides verbal cues and/or touching/steadying and/or contact guard assistance as patient completes activity. Assistance may be provided throughout the activity or intermittently. 3-Partial/Moderate Assistance-helper does LESS THAN HALF the effort. [place] lifts, holds or supports trunk or limbs, but provides less than half the effort. 2-Substantial/Maximal Assistance-helper does MORE THAN HALF the effort. [place] lifts or holds trunk or limbs and provides more than half the effort. 1-Xmcazaliz-vagdry does ALL the effort. Patient does none of the effort to complete the activity. Or, the assistance of 2 or more helpers is required for the patient to complete the activity. If activity was not attempted, code reason: 7-Patient Refused. 9-Not Applicable-not attempted and the patient did not perform the activity before the current illness, exacerbation or injury. 10-Not Attempted due to Environmental Limitations-(lack of equipment, weather restraints, etc.). 88-Not Attempted due to Medical Conditions or Safety Concerns. Bed Mobility: 6 Transfers (B,C,W/C): 6 Gait: 6 Stairs: 6 Indoor Mobility (Ambulation): Independent Stairs: Independent Patient used a SPC PT Evaluation-Current Subjective Patient in bed pre tx agrees to PT, has unrated pain on his bottom. Pt/Family Goals "to get stronger" Objective Patient Orientation: Person, Place, Situation Attachments: Oxygen ROM/Strength ROM Lower Extremities limited due to swelling and obesity Strength Lower Extremities 2/5 gross BLE Sensory Vision: Wears Glasses Hearing: Functional Sensation Right Lower Extremit: Intact Sensation Left Lower Extremity: Intact Transfers Roll Left to Right (QC): 1 Sit to Lying (QC): 1 Lying to Sitting/Side of Bed(Q: 1 Patient rolls to the side and supine to sit with assist of 2, after sitting he can maintain sitting balance using his arms. Patient's O2 drops to 77% after a couple of minutes and HR goes from 130 bpm to 150 bpm very rapidly. Patient lays down again with assist of 2 and starts purse lip breathing. Nurse comes in at this point and puts on bipap and patient rapidly goes back to 90%. Balance Sitting Static: Fair Sitting Dynamic: Fair Assessment/Needs Patient in bed post tx with nurse call, phone, tray, in room. Patient has impaired mobility , strength, endurance. Patient needs assist of 2 people for supine <-> sit. Rehab Potential: Guarded PT Metallurgical Engineering Technician Goals Correction Goals PT Correction Goals Time Frame: Feb 07, 2021 Roll Left & Right (QC): 3 (modA) Sit to Lying (QC): 3 (modA) Lying-Sitting on Side/Bed(QC): 3 (modA) Chair/Lss-vx-Prudh Xfer(QC): 3 (modA) PT Plan Problem List Problem List: Activity Tolerance, Functional Strength, Safety, Balance, Gait, Transfer, Bed Mobility, ROM Treatment/Plan Treatment Plan: Continue Plan of Care Treatment Plan: Bed Mobility, Education, Functional Activity Rosy, Functional Strength, Gait, Safety, Therapeutic Exercise, Transfers Treatment Duration: Feb 07, 2021 Frequency: 6 times per week Estimated Hrs Per Day: .25 hour per day Patient and/or Family Agrees t: Yes Safety Risks/Education Patient Education: Correct Positioning, Safety Issues Teaching Recipient: Patient Teaching Methods: Demonstration, Discussion Response to Teaching: Reinforcement Needed Discharge Recommendations Plan Patient will perform bed mobility and transfer training, balance and endurance training, functional strengthening, gait training, and education, to improve functional mobility and independence at home. Therapy Discharge Recommendati: 24 Hour Supervision Time/GCodes Time In: 1322 Time Out: 1340 Total Billed Treatment Time: 18 Total Billed Treatment 1 visit FA 18' JAGJIT GRACIA PT Jan 31, 2021 14:01
--- NOTE | 2021-01-31 14:07 | Occupational Therapy Eval ---
OT Evaluation-General/PLF Medical Diagnosis Admission Date Jan 25, 2021 at 08:28 Medical Diagnosis: Resp failure, bilateral PNA Onset Date: Jan 25, 2021 Therapy Diagnosis Therapy Diagnosis: decreased ADL status Height/Weight Height (Feet): 6 Height (Inches): 2.00 Weight (Pounds): 263 Weight (Ounces): 3.0 Precautions Precautions/Isolations: Fall Prevention, Standard Precautions Referral Physician: Lyudmila Referral Reason: Evaluation/Treatment Medical History Pertinent Medical History: Atrial Fib, COPD Additional Medical History tobacco abuse, Remote history of IV drug abuse Current History found by spouse slumped over, having a hard time breathing. EMS to ED 01/25/21 and intubated in ED to protect airways. Extubated 01/30 Social History Home: Single Level Current Living Status: Significant Other Entry Into Home: Stairs With Railing Steps Into Home: 2 ADL-Prior Level of Function SCALE: Activities may be completed with or without assistive devices. 8-Thudaowwbt-tvhtqle completes the activity by him/herself with no assistance from a helper. 5-Set-up or Clean-up Assistance-helper sets up or cleans up; patient completes activity. [place] assists only prior to or following the activity. 4-Supervision or Touching Assistance-helper provides verbal cues and/or touching/steadying and/or contact guard assistance as patient completes activity. Assistance may be provided throughout the activity or intermittently. 3-Partial/Moderate Assistance-helper does LESS THAN HALF the effort. [place] lifts, holds or supports trunk or limbs, but provides less than half the effort. 2-Substantial/Maximal Assistance-helper does MORE THAN HALF the effort. [place] lifts or holds trunk or limbs and provides more than half the effort. 8-Ejxamyuxm-uqwybg does ALL the effort. Patient does none of the effort to complete the activity. Or, the assistance of 2 or more helpers is required for the patient to complete the activity. If activity was not attempted, code reason: 7-Patient Refused. 9-Not Applicable-not attempted and the patient did not perform the activity before the current illness, exacerbation or injury. 10-Not Attempted due to Environmental Limitations-(lack of equipment, weather restraints, etc.). 88-Not Attempted due to Medical Conditions or Safety Concerns. ADL PLOF Comments Pts indicates pt required assistance with all ADLs at PLOF. Pt is reluctant to care for himself and doesn't like to get up to get his own coffee. Pt would rather complete tasks for him. She indicates he is able to take his shirt off/on, but will ask for help. He is unable to reach his feet, requiring assistance with threading/doffing LE dressing and footwear. He does not like to get into the shower due to fear of falling, and has to be encouraged to take a sponge bath to wash up. Pt has a tub/shower with an extended bath bench, but does not get into an actual shower, only completes sponge baths. Pt IND with toileting, able to manage clothing and hygiene. Pt's completes the cooking and cleaning. He has a walker and a cane, but does not like to use the walker. He primarily uses the cane, but states he is unable to carry items in one hand while using the cane. Self Care: Needed Some Help DME/Equipment: Bath Bench, Tub/Shower OT Current Status Subjective Pt in bed, agreeable to OT evaluation. States pain in buttocks and BLEs, unable to ambulate due to pain. Mental Status/Objective Patient Orientation: Person, Place, Situation Attachments: Cash Catheter, IV, Oxygen, Telemetry Current Hand Dominance: Right Upper Extremity ROM decreased, BUE shoulder flexion to approx 30 degrees Upper Extremity Strength grossly 2/5 Other Treatments Pt laying in bed, transferred supine to sit EOB, assist x2. Once seated he can maintain sitting balance using BUEs for support. O2 dropped to 77% after sitting EOB a couple of minutes, HR going between 130-150 bpm very rapidly. Assist x2 to transfer supine with education on pursed lip breathing. Nurse comes in and transitioned pt to BIPAP and pt rapidly returns to 90%. Post tx, pt in bed, call light in reach and all needs met. No further tx completed at this time due to pt being on BIPAP and desating with minimal activity while on O2. Education OT Patient Education: Correct positioning, Modified ADL techniques, Progress toward Goal/Update tx plan, Purpose of tx/functional activities, Rehab process Teaching Recipient: Patient Teaching Methods: Discussion Response to Teaching: Verbalize Understanding OT Mcfp Goals Mcfp Goals Time Frame: Feb 16, 2021 Eating (QC): 6 Oral Hygiene (QC): 6 Toileting Hygiene (QC): 4 Shower/Bathe Self (QC): 3 Upper Body Dressing (QC): 4 Lower Body Dressing (QC): 3 1=Demonstrate adherence to instructed precautions during ADL tasks. 2=Patient will verbalize/demonstrate understanding of assistive devices/modifications for ADL. 3=Patient will improve strength/tolerance for activity to enable patient to perform ADL's. OT Education/Plan Problem List/Assessment Assessment: Decreased Activ Tolerance, Decreased UE Strength, Dependent Transfers, Impaired Bed Mobility, Impaired Coordination, Impaired Funct Balance, Impaired I ADL's, Impaired Self-Care Skills, Restricted Funct UE ROM Discharge Recommendations Plan/Recommendations: Continue POC Treatment Plan/Plan of Care Patient would benefit from OT for education, treatment and training to promote independence in ADL's, mobility, safety and/or upper extremity function for ADL's. Plan of Care: ADL Retraining, Functional Mobility, UE Funct Exercise/Act Treatment Duration: Feb 16, 2021 Frequency: 5 times per week Estimated Hrs Per Day: .25 hour per day Rehab Potential: Guarded Time/GCodes Start Time: 13:28 Stop Time: 13:43 Total Time Billed (hr/min): 15 Billed Treatment Time 1, LIZ LIU OT Jan 31, 2021 14:06
[2021-01-31 14:35] VITALS: BP 110/75
[2021-01-31 20:57] VITALS: BP 110/96
[2021-01-31 22:14] VITALS: BP 100/67
[2021-01-31] MEDS: DexMEDEtomidine 250 ML DRIP 250 ML IV SCH (22:23)
[2021-02-01] MEDS: RT-ALBUTEROL/IPRATROPIUM 3 ML (DUONEB) VIAL INH SCH ×6 (02:19→22:17)
[2021-02-01 02:20] VITALS: BP 108/76
[2021-02-01 03:33] LABS: BASOPHILS % (AUTO) 0 % (0-10); EOSINOPHILS % (AUTO) 0 % (0-10); HEMATOCRIT 50 % (40-54); LYMPHOCYTES # (AUTO) 0.4 10^3/uL (1.0-4.0); LYMPHOCYTES % (AUTO) 4 % (12-44); MEAN CORPUSCULAR HEMOGLOBIN 27 pg (25-34); MEAN CORPUSCULAR HGB CONC 30 g/dL (32-36); MEAN CORPUSCULAR VOLUME 91 fL (80-99); MEAN PLATELET VOLUME 10.8 fL (9.0-12.2); MONOCYTES # (AUTO) 0.5 10^3/uL (0.0-1.0); MONOCYTES % (AUTO) 5 % (0-12); NEUTROPHILS % (AUTO) 90 % (42-75); PLATELET COUNT 210 10^3/uL (130-400); WHITE BLOOD COUNT 10.1 10^3/uL (4.3-11.0)
[2021-02-01 04:10] LABS: ALBUMIN 3.3 GM/DL (3.2-4.5); ANISOCYTOSIS SLIGHT; BAND NEUTROPHILS 2 %; BASOPHILS % (MANUAL) 0 %; EOSINOPHILS % (MANUAL) 0 %; LYMPHOCYTES % (MANUAL) 2 %; MONOCYTES % (MANUAL) 4 %; NEUTROPHILS % (MANUAL) 92 %; POLYCHROMASIA SLIGHT; POTASSIUM 4.6 MMOL/L (3.6-5.0)
[2021-02-01 04:11] LABS: CALCIUM 8.4 MG/DL (8.5-10.1); ROULEAUX SLIGHT
[2021-02-01 04:12] LABS: TOTAL PROTEIN 5.9 GM/DL (6.4-8.2)
[2021-02-01 04:14] LABS: BILIRUBIN,TOTAL 1.4 MG/DL (0.1-1.0)
[2021-02-01 04:16] LABS: CREATININE SERUM 0.84 MG/DL (0.60-1.30); PHOSPHORUS 3.1 MG/DL (2.3-4.7)
[2021-02-01] MEDS: NOREPINEPHRINE 8 MG/250 ML 250 ML IV SCH ×2 (04:16→14:42)
[2021-02-01] MEDS: POTASSIUM CL 10MEQ/50ML IVPB 50 ML IV SCH (04:17)
[2021-02-01 04:19] LABS: MAGNESIUM 2.6 MG/DL (1.6-2.4)
[2021-02-01] MEDS: MAGNESIUM 1 GM/100 ML IVPB 100 ML IV SCH (04:53)
[2021-02-01] MEDS: KCL 20 MEQ TAB (K-DUR) PO SCH (04:54)
[2021-02-01] MEDS: inSUlin ASPART (NovoLOG) 1 UNIT/0.01 ML (CHARGE PER UNIT) SC SCH ×4 (06:45→20:36)
[2021-02-01] MEDS: VASOPRESSIN INJECTION 20 UNIT in NS (IVPB) 100 ML IV SCH ×2 (07:45→17:00)
[2021-02-01] MEDS: dilTIAZem DRIP PRE-MIX 125 ML IV SCH ×4 (07:58→22:30)
[2021-02-01] MEDS: PANTOPRAZOLE 40 MG (PROTONIX) VIAL IV SCH (08:04)
[2021-02-01] MEDS: methylPREDNISolone 40 MG/ML (Solu-MEDROL) VIAL IV SCH ×2 (08:04→19:51)
[2021-02-01] MEDS: APIXABAN 5 MG (ELIQUIS) TABLET PO SCH ×2 (08:04→19:51)
[2021-02-01] MEDS: MICONAZOLE 2% POWDER (DESENEX AF) 90 GM TOP SCH ×2 (08:05→19:52)
--- NOTE | 2021-02-01 10:37 | Occupational Ther Daily Note ---
OT Current Status-Daily Note ADL-Treatment Therapy Code Descriptions/Definitions Functional [place] Measure: 0=Not Assessed/NA 4=Minimal Assistance 1=Total Assistance 5=Supervision or Setup 2=Maximal Assistance 6=Modified [place] 3=Moderate Assistance 7=Complete IndependenceSCALE: Activities may be completed with or without assistive devices. 9-Luyhlkvzam-nwljvxo completes the activity by him/herself with no assistance from a helper. 5-Set-up or Clean-up Assistance-helper sets up or cleans up; patient completes activity. [place] assists only prior to or following the activity. 4-Supervision or Touching Assistance-helper provides verbal cues and/or touching/steadying and/or contact guard assistance as patient completes activity. Assistance may be provided throughout the activity or intermittently. 3-Partial/Moderate Assistance-helper does LESS THAN HALF the effort. [place] lifts, holds or supports trunk or limbs, but provides less than half the effort. 2-Substantial/Maximal Assistance-helper does MORE THAN HALF the effort. [place] lifts or holds trunk or limbs and provides more than half the effort. 7-Hddmvonbc-gklgco does ALL the effort. Patient does none of the effort to complete the activity. Or, the assistance of 2 or more helpers is required for the patient to complete the activity. If activity was not attempted, code reason: 7-Patient Refused. 9-Not Applicable-not attempted and the patient did not perform the activity before the current illness, exacerbation or injury. 10-Not Attempted due to Environmental Limitations-(lack of equipment, weather restraints, etc.). 88-Not Attempted due to Medical Conditions or Safety Concerns. OT Long-Term Goals Power Plant Operations Manager Goals Time Frame: Feb 16, 2021 Eating (QC): 6 Oral Hygiene (QC): 6 Toileting Hygiene (QC): 4 Shower/Bathe Self (QC): 3 Upper Body Dressing (QC): 4 Lower Body Dressing (QC): 3 1=Demonstrate adherence to instructed precautions during ADL tasks. 2=Patient will verbalize/demonstrate understanding of assistive devices/modifications for ADL. 3=Patient will improve strength/tolerance for activity to enable patient to per form ADL's. OT Education/Plan Treatment Plan/Plan of Care Patient would benefit from OT for education, treatment and training to promote independence in ADL's, mobility, safety and/or upper extremity function for ADL's. Plan of Care: ADL Retraining, Functional Mobility, UE Funct Exercise/Act Treatment Duration: Feb 16, 2021 Frequency: 5 times per week Estimated Hrs Per Day: .25 hour per day Rehab Potential: ZAK Hummel Feb 01, 2021 10:37
--- NOTE | 2021-02-01 10:56 | Diagnostic Imaging Report ---
INDICATION: Hypoxia COMPARISON: 01/26/2021 TECHNIQUE: Single radiograph the chest dated 02/01/2021 FINDINGS: Interval removal of previously noted endotracheal tube and enteric catheter. Right IJ central venous catheter appear stable. The cardiac silhouette is stable mildly enlarged. Decreased lung volumes with worsening small bibasilar pleural-parenchymal opacities. No pneumothorax. No acute osseous abnormality. IMPRESSION: Decreasing lung volumes with slightly worsening small bibasilar pleural-parenchymal opacities, related to a combination of pleural fluid with adjacent atelectasis and/or infiltrate. Interval extubation and removal of enteric catheter. Dictated by: Dictated on workstation # [id number]
[2021-02-01] MEDS ORDERED: BISACODYL 10 MG SUPP (DULCOLAX) PR ONE (11:00)
--- NOTE | 2021-02-01 11:46 | Occupational Ther Daily Note ---
OT Current Status-Daily Note Subjective Pt alert, lying in bed. Nrsg okayed working with pt. Pt agrees to therapy. Monitored O2 and HR throughout session. Due to pt's inability to maintain O2 levels during bed exercises, nrsg applied BiPap to ensure O2 levels to stay at 90% and above. Mental Status/Objective Patient Orientation: Person, Place, Time, Situation Attachments: Cash Catheter, IV, Oxygen, Telemetry ADL-Treatment Therapy Code Descriptions/Definitions Functional [place] Measure: 0=Not Assessed/NA 4=Minimal Assistance 1=Total Assistance 5=Supervision or Setup 2=Maximal Assistance 6=Modified [place] 3=Moderate Assistance 7=Complete IndependenceSCALE: Activities may be completed with or without assistive devices. 0-Hwnioytosy-mwrzjzr completes the activity by him/herself with no assistance fr om a helper. 5-Set-up or Clean-up Assistance-helper sets up or cleans up; patient completes activity. [place] assists only prior to or following the activity. 4-Supervision or Touching Assistance-helper provides verbal cues and/or touching/steadying and/or contact guard assistance as patient completes activity. Assistance may be provided throughout the activity or intermittently. 3-Partial/Moderate Assistance-helper does LESS THAN HALF the effort. [place] lifts, holds or supports trunk or limbs, but provides less than half the effort. 2-Substantial/Maximal Assistance-helper does MORE THAN HALF the effort. [place] lifts or holds trunk or limbs and provides more than half the effort. 8-Pjzujrasg-igcdti does ALL the effort. Patient does none of the effort to complete the activity. Or, the assistance of 2 or more helpers is required for the patient to complete the activity. If activity was not attempted, code reason: 7-Patient Refused. 9-Not Applicable-not attempted and the patient did not perform the activity before the current illness, exacerbation or injury. 10-Not Attempted due to Environmental Limitations-(lack of equipment, weather restraints, etc.). 88-Not Attempted due to Medical Conditions or Safety Concerns. Other Treatment Max Ax2 for supine <--> EOB and min A with verbal cues to maintain upright sitting at EOB for ~8min. O2 levels stayed above 90% with BiPap though HR fluctuated from 105 to 151. AAROM for shldr flexion to 90* only, increased tightness noted at 90* and HR went to 150's. Pt had fair hand video recorder mechanic. After session, pt lying in bed with call light/phone in reach. All needs met in room. OT Patternmaker Pressure Cast Goals Patternmaker Pressure Cast Goals Time Frame: Feb 16, 2021 Eating (QC): 6 Oral Hygiene (QC): 6 Toileting Hygiene (QC): 4 Shower/Bathe Self (QC): 3 Upper Body Dressing (QC): 4 Lower Body Dressing (QC): 3 1=Demonstrate adherence to instructed precautions during ADL tasks. 2=Patient will verbalize/demonstrate understanding of assistive devices/modifications for ADL. 3=Patient will improve strength/tolerance for activity to enable patient to perform ADL's. OT Education/Plan Problem List/Assessment Assessment: Decreased Activ Tolerance, Decreased UE Strength, Dependent Transfers, Impaired Bed Mobility, Impaired Self-Care Skills, Restricted Funct UE ROM Discharge Recommendations Plan/Recommendations: Continue POC Treatment Plan/Plan of Care Patient would benefit from OT for education, treatment and training to promote independence in ADL's, mobility, safety and/or upper extremity function for ADL's. Plan of Care: ADL Retraining, Functional Mobility, UE Funct Exercise/Act Treatment Duration: Feb 16, 2021 Frequency: 5 times per week Estimated Hrs Per Day: .25 hour per day Rehab Potential: Guarded Time/GCodes Start Time: 11:10 Stop Time: 11:30 Total Time Billed (hr/min): 20 Billed Treatment Time 1 visit-FA 1 (20 min) ZAK BOYD Feb 01, 2021 11:46
--- NOTE | 2021-02-01 11:55 | Physical Therapy Daily Note ---
PT Daily Note-Current Subjective Patient in bed with HOB elevated, family in the room upon PT/OT arrival, agreeable to treatment. Patient reports he feels like he is breathing better, but still gets short of breath frequently. Mental Status Patient Orientation: Person Attachments: Central Line, Oxygen, Cash Catheter Transfers SCALE: Activities may be completed with or without assistive devices. 9-Vwwpkgvgay-lymgidg completes the activity by him/herself with no assistance from a helper. 5-Set-up or Clean-up Assistance-helper sets up or cleans up; patient completes activity. [place] assists only prior to or following the activity. 4-Supervision or Touching Assistance-helper provides verbal cues and/or touching/steadying and/or contact guard assistance as patient completes activity. Assistance may be provided throughout the activity or intermittently. 3-Partial/Moderate Assistance-helper does LESS THAN HALF the effort. [place] lifts, holds or supports trunk or limbs, but provides less than half the effort. 2-Substantial/Maximal Assistance-helper does MORE THAN HALF the effort. [place] lifts or holds trunk or limbs and provides more than half the effort. 0-Abrcappxi-pkfshf does ALL the effort. Patient does none of the effort to complete the activity. Or, the assistance of 2 or more helpers is required for the patient to complete the activity. If activity was not attempted, code reason: 7-Patient Refused. 9-Not Applicable-not attempted and the patient did not perform the activity before the current illness, exacerbation or injury. 10-Not Attempted due to Environmental Limitations-(lack of equipment, weather restraints, etc.). 88-Not Attempted due to Medical Conditions or Safety Concerns. Roll Left & Right (QC): 2 Sit to Lying (QC): 2 Lying to Sitting/Side of Bed(Q: 2 Gait Training Does the Patient Walk?: No and Walking Goal IS indicated Exercises Supine Ex: Ankle pumps, Quad Set, Glut sets, Heel Slides, Short Arc Quads, Straight leg raise, Hip abd/add Supine Reps: 20 Treatments Visit, Ex, FA Assessment Current Status: Fair Progress Patient tolerated treatment fair. Prior to transfers and bed mobility, nurse donned the BiPap to the patient and increased to 100% to allow for increased activity during therapy. Patient was co-treated with OT due to the need of 2 persons to safely accommodate patients inability to perform transfers and ADLs at this time. Patient required max A x2 for all observed bed mobility. Upon sitting at the edge of the bed, PT and MELENDEZ switched positions to allow MELENEDZ to work on UE exercises. Patient required max A x 2 for all bed mobility to return to a supine position. MELENDEZ then left and PT finished with LE strengthening and ROM exercises. Patient in bed post treatment with all needs met, nursing notified, call light in reach and family in the room. PT Shelter Goals Shelter Goals PT Shelter Goals Time Frame: Feb 07, 2021 Roll Left & Right (QC): 3 (modA) Sit to Lying (QC): 3 (modA) Lying-Sitting on Side/Bed(QC): 3 (modA) Chair/Ogf-pm-Nhwlv Xfer(QC): 3 (modA) PT Plan Treatment/Plan Treatment Plan: Continue Plan of Care Treatment Plan: Bed Mobility, Education, Functional Activity Rosy, Functional Strength, Gait, Safety, Therapeutic Exercise, Transfers Treatment Duration: Feb 07, 2021 Frequency: 6 times per week Estimated Hrs Per Day: .25 hour per day Patient and/or Family Agrees t: Yes Safety Risks/Education Patient Education: Transfer Techniques, Reviewed Precautions Teaching Recipient: Patient, Family Teaching Methods: Demonstration, Discussion Response to Teaching: Verbalize Understanding, Reinforcement Needed Time/GCodes Time In: 1107 Time Out: 1145 Total Billed Treatment Time: 38 Total Billed Treatment Visit, Ex FA (co-treat 15 minutes with OT) DIOGO FREIRE PT Feb 01, 2021 11:55
[2021-02-01] MEDS: meTOproloL SUCCINATE 50 MG (TOPROL XL) TAB PO SCH ×2 (12:06→19:51)
[2021-02-01] MEDS: acetaZOLAMIDE INJ 500 MG/5 ML (DIAMOX) VIAL IV SCH ×2 (12:07→19:50)
--- NOTE | 2021-02-01 13:31 | Tele-ICU Progress Note ---
Subjective Date Seen by a Provider: Feb 01, 2021 Time Seen by a Provider: 08:16 Sepsis Event Evaluation Height, Weight, BMI Height: 6'2.00" Weight: 263lbs. 3.0oz. 119.120097pt; 40.12 BMI Method:Stated Exam Exam Patient acknowledged, consented, and participated in this virtual visit which was conducted using real time audio/video Vital Signs Date Time Temp Pulse Resp B/P (MAP) Pulse Ox O2 Delivery O2 Flow Rate FiO2 02/01/21 13:25 85 02/01/21 12:18 36.3 02/01/21 12:00 92 High Flow N/C 12.00 02/01/21 12:00 80 21 90/65 94 High Flow N/C 10.00 02/01/21 11:00 128 26 91 High Flow N/C 10.00 02/01/21 10:05 94 High Flow N/C 12.00 02/01/21 10:00 124 14 92 High Flow N/C 10.00 02/01/21 09:00 140 19 139/74 91 High Flow N/C 10.00 02/01/21 08:00 147 24 127/77 91 High Flow N/C 10.00 02/01/21 08:00 92 High Flow N/C 12.00 02/01/21 07:54 37.2 02/01/21 07:00 139 02/01/21 07:00 122 52 75/63 94 High Flow N/C 02/01/21 06:32 93 High Flow N/C 12.00 02/01/21 06:00 105 18 93/77 92 High Flow N/C 10.00 02/01/21 05:00 91 16 100/65 94 High Flow N/C 10.00 02/01/21 04:16 90 02/01/21 04:00 103 15 106/66 94 High Flow N/C 10.00 02/01/21 04:00 94 High Flow N/C 10.00 02/01/21 03:36 37.0 High Flow N/C 10.00 02/01/21 03:00 108 13 95/63 94 NIV Bilevel 60.00 02/01/21 02:20 87 18 95 60.00 02/01/21 02:00 86 23 105/76 95 NIV Bilevel 60.00 02/01/21 01:00 88 21 102/72 95 NIV Bilevel 60.00 02/01/21 01:00 86 02/01/21 00:00 84 20 105/66 94 NIV Bilevel 60.00 01/31/21 23:59 96 NIV Bilevel 60 01/31/21 23:00 98 21 106/68 96 NIV Bilevel 60.00 01/31/21 22:24 37.2 103 NIV Bilevel 60.00 01/31/21 22:23 90 01/31/21 22:15 98 18 113/70 96 NIV Bilevel 60.00 01/31/21 22:14 98 17 96 60.00 01/31/21 22:08 89 01/31/21 22:00 92 18 100/67 95 High Flow N/C 12.00 01/31/21 21:00 152 16 125/82 94 High Flow N/C 12.00 01/31/21 20:57 37.0 128 98 01/31/21 20:00 92 High Flow N/C 12.00 01/31/21 20:00 140 32 110/76 93 High Flow N/C 12.00 01/31/21 19:58 36.9 01/31/21 19:32 128 01/31/21 19:11 93 High Flow N/C 12.00 01/31/21 19:00 144 01/31/21 19:00 144 20 122/79 94 High Flow N/C 12.00 01/31/21 18:00 142 22 110/96 91 High Flow N/C 12.00 01/31/21 17:00 144 18 105/83 91 High Flow N/C 12.00 01/31/21 16:11 37.0 01/31/21 16:00 92 High Flow N/C 12.00 01/31/21 16:00 140 18 121/93 95 High Flow N/C 12.00 01/31/21 15:00 111 18 115/78 95 High Flow N/C 12.00 01/31/21 14:35 92 17 95 60.00 01/31/21 14:00 121 17 109/69 95 High Flow N/C 12.00 I & O 02/01/21 07:00 Intake Total 2100 ml Output Total 3175 ml Balance -1075 ml Height & Weight Height: 6'2.00" Weight: 263lbs. 3.0oz. 119.631996is; 40.12 BMI Method:Stated General Appearance: No Apparent Distress, WD/WN, Obese HEENT: PERRL/EOMI, Normal ENT Inspection Neck: Non Tender, Supple Respiratory: Decreased Breath Sounds Cardiovascular: Regular Rate, Rhythm Capillary Refill: Less Than 3 Seconds Gastrointestinal: non tender, soft Extremity: Pedal Edema (4+ to level above knees bilateral.), Swelling, Other (Venous stasis changes noted to bilateral lower extremities) Neurologic/Psychiatric: Alert, Oriented x3 Skin: Normal Color Lymphatic: No Adenopathy Results Lab Laboratory Tests 01/31/21 04:50 02/01/21 03:18 Assessment/Plan Assessment/Plan Tele-ICU Physician , Progress Note ) Available chart/ vitals / labs / Images reviewed Video assessment done using teleICU camera, rest of exam as per RN Discussed with RN , EXAM PER RN Events overnight : increased Fio2 Afebrile I/O = POS 1800ml - 3 days positive 5L Drips: cardizem0 Pressors: , hemodynamically stable Sedation gtt: ( RASS- -2 prop 35 fnt 75 VENT SETTINGS and ABG reviewed Not candidate for SBT today REVIEWED Cardiovascular Stability / Sedation Score / FI02/PEEP / ABG / CXR Consultants: jesika Hospital course: 01-25: INTUBATED Unresponsive - Pneumonia - A Fib RVR (Now SR) - Intubated 01/28 - AC 60 % 20 450 + 5 , POS 1800ml - 3 days positive 5L- diuresis attempted - 01/29 - AC 50 % 20 450 + 5 after 3L DIURESIS, changed to DIAMOX 01/30- EXTUBATED 01/31 - back to afib RVR , NC + BIPAP ( CARA , poor comliance 02/01 - 12L NC A/P Acute resp failure , PNA and AECOPD - Intubated 01/25 ( unresponsive with hypercarbia , PNA ) -01/30- EXTUBATED - will try to cont BIPAP at night for known CARA - poor conpliance - increased Fio2 needs 02/01 - WILL CHECK CXR AND KEEP STEROIDS DOSE TODAY SAME - ATTEMPT IS - poor cooperation as per RN report PNA ( NEG COVID PCR , NEG flu - sputm cx 01/25 - Hflu - in cefepime 01/25- 05/02 - possible aspiration 01/30 - follow AECOPD - IV steroids - decrease 01/30 SM 40 q12 - - nebs A fib RVR on presentation - converted to sinus 01/25 - >> back to a fib RVR 01/26 - cards follow , Currently a-fib with RVR - iv dilt and metoprolol - AC with eliquis -ECHO 01/26/21: LVEF 55-60%, mild to mod enlargement of LA Elevated LFT 01/30 - reglan changed to PRN , other meds ? - not improving > 48 h - will order US liver Chronic hypercarbic rersp failure with COPD - on NIPPV at night at home, suspected poor compliance - ? CARA vs OHS Elevated ddimer on admission - MARCOS - US venous NEG 01/25 - already on AC , low sup for PE - will follow on Eliquis Lines : RIGHT IJ 01/25 (Central Line Necessity Reviewed) Cash: 01/25 O/30 Nutrition: TF stopped 01/28 with residuals - reglan 01/29 started - vomiting 01/30 - ON HOLD TF Analgesia: Anxiety/ delirium VTE Prophylaxis: eliquis Stress Ulcer Prophylaxis: PPI Plans in collaboration with bedside consultants and IM MDs. Discussed with RN to reach out if any questions or concerns A total of 35 minutes of critical care time was devoted to this patient today, required to treat and/or prevent further deterioration of critical care condition ( as above) . FER VAZQUEZ MD Feb 01, 2021 13:31
--- NOTE | 2021-02-01 13:53 | Progress Note - Cardiology ---
Cardiology SOAP Progress Note Subjective: Gen malaise present No cp No palp or syncope Shortness of breath with activity No n/v/d Objective: I&O/Vital Signs 02/01/21 02/01/21 02/01/21 02/01/21 02:00 02:20 03:00 03:36 Temp 37.0 Pulse 86 87 108 Resp 23 18 13 B/P (MAP) 105/76 95/63 Pulse Ox 95 95 94 O2 Delivery NIV Bilevel NIV Bilevel High Flow N/C O2 Flow Rate 60.00 60.00 60.00 10.00 02/01/21 02/01/21 02/01/21 02/01/21 04:00 04:00 04:16 05:00 Pulse 103 90 91 Resp 15 16 B/P (MAP) 106/66 100/65 Pulse Ox 94 94 94 O2 Delivery High Flow N/C High Flow N/C High Flow N/C O2 Flow Rate 10.00 10.00 10.00 02/01/21 02/01/21 02/01/21 02/01/21 06:00 06:32 07:00 07:00 Pulse 105 122 139 Resp 18 52 B/P (MAP) 93/77 75/63 Pulse Ox 92 93 94 O2 Delivery High Flow N/C High Flow N/C High Flow N/C O2 Flow Rate 10.00 12.00 02/01/21 02/01/21 02/01/21 02/01/21 07:54 08:00 08:00 09:00 Temp 37.2 Pulse 147 140 Resp 24 19 B/P (MAP) 127/77 139/74 Pulse Ox 92 91 91 O2 Delivery High Flow N/C High Flow N/C High Flow N/C O2 Flow Rate 12.00 10.00 10.00 02/01/21 02/01/21 02/01/21 02/01/21 10:00 10:05 11:00 12:00 Pulse 124 128 80 Resp 14 26 21 B/P (MAP) 90/65 Pulse Ox 92 94 91 94 O2 Delivery High Flow N/C High Flow N/C High Flow N/C High Flow N/C O2 Flow Rate 10.00 12.00 10.00 10.00 02/01/21 02/01/21 02/01/21 02/01/21 12:00 12:18 13:25 13:50 Temp 36.3 Pulse 85 Pulse Ox 92 92 O2 Delivery High Flow N/C High Flow N/C O2 Flow Rate 12.00 12.00 02/01/21 00:00 Intake Total 1400 ml Output Total 1450 ml Balance -50 ml Weight (Pounds): 263 Weight (Ounces): 3.0 Weight (Calculated Kilograms): 119.485556 Constitutional: AAO x 3, other Respiratory: chest expansion is symmetric, chest is bilaterally symmetric, rhonchi (scattered), other (intubated) Cardiovascular: irregularly irregular, tachycardia Extremities: other (bilat pitting and non-pitting edema) Neurologic/Psychiatric: oriented x 3, other (moves all limbs equally) Skin: other (chronic thickening of the skin of the legs and chronic swelling of the legs (bilat)) Results/Procedures: Labs Laboratory Tests 01/31/21 16:28: Glucometer 195H 01/31/21 19:53: Glucometer 180H 02/01/21 03:18: White Blood Count 10.1, Red Blood Count 5.49, Hemoglobin 15.0, Hematocrit 50, Mean Corpuscular Volume 91, Mean Corpuscular Hemoglobin 27, Mean Corpuscular Hemoglobin Concent 30L, Red Cell Distribution Width 15.3H, Platelet Count 210, Mean Platelet Volume 10.8, Immature Granulocyte % (Auto) 1, Neutrophils (%) (Auto) 90H, Lymphocytes (%) (Auto) 4L, Monocytes (%) (Auto) 5, Eosinophils (%) (Auto) 0, Basophils (%) (Auto) 0, Neutrophils # (Auto) 9.0H, Lymphocytes # (Auto) 0.4L, Monocytes # (Auto) 0.5, Eosinophils # (Auto) 0.0, Basophils # (Auto) 0.0, Immature Granulocyte # (Auto) 0.1, Neutrophils % (Manual) 92, Lymphocytes % (Manual) 2, Monocytes % (Manual) 4, Eosinophils % (Manual) 0, Basophils % (Manual) 0, Band Neutrophils 2, Polychromasia SLIGHT, Anisocytosis SLIGHT, Rouleau SLIGHT, Sodium Level 142, Potassium Level 4.6, Chloride Level 102, Carbon Dioxide Level 31, Anion Gap 9, Blood Urea Nitrogen 35H, Creatinine 0.84, Estimat Glomerular Filtration Rate 93, BUN/Creatinine Ratio 42, Glucose Level 226H, Calcium Level 8.4L, Corrected Calcium 9.0, Phosphorus Level 3.1, Magnesium Level 2.6H, Total Bilirubin 1.4H, Aspartate Amino Transf (AST/SGOT) 86H, Alanine Aminotransferase (ALT/SGPT) 280H, Alkaline Phosphatase 53, Total Protein 5.9L, Albumin 3.3 02/01/21 11:24: Glucometer 186H Microbiology 01/25/21 Gram Stain - Final, Complete 01/25/21 Sputum Culture - Final, Complete Haemophilus influenza Usual upper respiratory andrew 01/25/21 Blood Culture - Final, Complete No growth 01/25/21 Urine Culture - Final, Complete NO GROWTH Laboratory Tests 01/31/21 04:50 02/01/21 03:18 A/P: Assessment: Pneumonia with resp failure requiring intubation, now extubated - Echo 01/26/21: LVEF 55-60%, mild to mod enlargement of LA P. A-fib/flutter - Typical atrial flutter ablation by Dr. Rankin on 08/24/2018 - Recurrent A Fib/Fl on 08/17/20 with RVR - OAC with Eliquis - Currently a-fib with RVR - controlled with iv dilt and metoprolol HTN Tobaccoism COPD Obesity Bilat LE swelling and chronic stasis dermatitis fo the legs Plan: ICU and Hospitalist service is managing his acute resp failure Continue iv dilt Increase oral beta-carlos for better vent rate control Continue Eliquis for stroke prophylaxis Monitor lab closely Replace electrolytes as indicated Clinical Quality Measures AMI/AHF: Ejection Fraction %: 55 EULA COLLAZO MD [facility] Feb 01, 2021 13:53
--- NOTE | 2021-02-01 15:33 | Progress Note - Hospitalist ---
TOMMIE PUCKETT 02/01/21 1533: Subjective HPI/CC On Admission Date Seen by Provider: Feb 01, 2021 Time Seen by Provider: 10:15 COPD exacerbation Bilateral pneumonia Respiratory failure Subjective/Events-last exam Pt reports constipation; was straining with bed hurt, spoke to Lungs wheezy; productive cough noted Pt burping continuously Eating and drinking regularly Motor skills have improved (wiping eyes, drinking on his own) Noted BP was higher in room than last vitals report (114/79) Pt SOB, on 12L nasal cannula Reports that O2 dropped to 85% when attempting movement with PT/OT Review of Systems Pulmonary: Dyspnea, Cough Cardiovascular: Edema (bilat feet) Gastrointestinal: Constipation Neurological: Weakness (regaining motor movements) Focused Exam Respiratory: No Accessory Muscle Use, Decreased Breath Sounds, Wheezing Cardiovascular: Irregularly Irregular, Tachycardia Objective Exam Vital Signs Vital Signs Date Time Temp Pulse Resp B/P (MAP) Pulse Ox O2 Delivery O2 Flow Rate FiO2 02/01/21 13:50 92 High Flow N/C 12.00 02/01/21 13:25 85 02/01/21 12:18 36.3 02/01/21 12:00 21 90/65 01/31/21 23:59 60 Capillary Refill : Less Than 3 Seconds General Appearance: Mild Distress (constipation), Obese Respiratory: No Accessory Muscle Use, Decreased Breath Sounds, Wheezing Cardiovascular: Irregularly Irregular, Tachycardia Gastrointestinal: Distended Extremity: Pedal Edema Neurologic/Psychiatric: Alert Results/Procedures Lab Laboratory Tests 02/01/21 03:18 Patient resulted labs reviewed. Assessment/Plan Assessment and Plan Assess & Plan/Chief Complaint Assessment Chronic respiratory failure- continued hypoxia, milka w movement Atrial fibrillation with rapid ventricular response Obesity Hyperglycemia Burping/Constipation Plan: Inc the metoprolol, continue diltiazem for AFib w/ RVR per cardiology consult Give suppository for bowels; ondansetron Continue PT/OT Monitor ALT (280) Continue 12L nasal cannula for hypoxia Continue insulin trt Oral anticoagulation for stroke prophylaxis Continue to monitor in ICU, revisit 4th floor move at a later time Diagnosis/Problems Diagnosis/Problems (1) COPD exacerbation Status: Acute (2) DVT prophylaxis Status: Acute (3) Bilateral pneumonia Status: Acute Qualifiers: Qualified Codes: J18.9 - Pneumonia, unspecified organism (4) Respiratory failure with hypoxia and hypercapnia Status: Acute Qualifiers: Qualified Codes: J96.01 - Acute respiratory failure with hypoxia; J96.02 - Acute respiratory failure with hypercapnia (5) Afib Clinical Quality Measures AMI/AHF: Ejection Fraction %: 55 GHAZALA HARRELL DO 02/01/212121: Subjective Subjective/Events-last exam Patient appears to be confused Started laxatives at bedside PT and OT he really cannot work with him Objective Exam General Appearance: Mild Distress (constipation), Obese, Other (Confused) Respiratory: Decreased Breath Sounds, Wheezing Cardiovascular: Irregularly Irregular, Tachycardia Assessment/Plan Assessment and Plan Assess & Plan/Chief Complaint Supportive care Maintain ICU High risk for intubation Supervisory-Addendum Brief Verification & Attestation Participated in pt care: history, MDM, physical Personally performed: exam, history, MDM, supervision of care Care discussed with: Medical Student Procedures: n/a Results interpretation: Verified all documentation Verification and Attestation of Medical Student E/M Service A medical student performed and documented this service in my presence. I reviewed and verified all information documented by the medical student and made modifications to such information, when appropriate. I personally performed the physical exam and medical decision making. Ghazala Harrell, Feb 01, 2021,21:21 TOMMIE PUCKETT Feb 01, 2021 15:33 GHAZALA HARRELL DO Feb 01, 2021 21:22
[2021-02-01] MEDS: SENNA W/DOCUSATE (SENOKOT S) TABLET PO SCH (19:51)
[2021-02-02] MEDS: NOREPINEPHRINE 8 MG/250 ML 250 ML IV SCH ×3 (02:14→22:34)
[2021-02-02 02:40] VITALS: BP 106/81
[2021-02-02] MEDS: RT-ALBUTEROL/IPRATROPIUM 3 ML (DUONEB) VIAL INH SCH ×6 (02:40→21:46)
[2021-02-02 02:56] LABS: BASOPHILS % (AUTO) 0 % (0-10); EOSINOPHILS % (AUTO) 0 % (0-10); HEMATOCRIT 48 % (40-54); HEMOGLOBIN 14.7 g/dL (13.3-17.7); LYMPHOCYTES # (AUTO) 0.4 10^3/uL (1.0-4.0); LYMPHOCYTES % (AUTO) 4 % (12-44); MEAN CORPUSCULAR HEMOGLOBIN 28 pg (25-34); MEAN CORPUSCULAR HGB CONC 31 g/dL (32-36); MEAN CORPUSCULAR VOLUME 90 fL (80-99); MONOCYTES # (AUTO) 0.5 10^3/uL (0.0-1.0); MONOCYTES % (AUTO) 5 % (0-12); NEUTROPHILS # (AUTO) 9.1 10^3/uL (1.8-7.8); NEUTROPHILS % (AUTO) 90 % (42-75); PLATELET COUNT 210 10^3/uL (130-400); WHITE BLOOD COUNT 10.1 10^3/uL (4.3-11.0)
[2021-02-02 03:10] LABS: ALBUMIN 3.2 GM/DL (3.2-4.5); POTASSIUM 4.4 MMOL/L (3.6-5.0)
[2021-02-02 03:11] LABS: CALCIUM 8.2 MG/DL (8.5-10.1)
[2021-02-02 03:12] LABS: TOTAL PROTEIN 5.9 GM/DL (6.4-8.2)
[2021-02-02 03:14] LABS: BILIRUBIN,TOTAL 1.7 MG/DL (0.1-1.0)
[2021-02-02 03:16] LABS: CREATININE SERUM 0.81 MG/DL (0.60-1.30); PHOSPHORUS 2.7 MG/DL (2.3-4.7)
[2021-02-02 03:19] LABS: MAGNESIUM 2.6 MG/DL (1.6-2.4)
[2021-02-02] MEDS: POTASSIUM CL 10MEQ/50ML IVPB 50 ML IV SCH (06:08)
[2021-02-02] MEDS: KCL 20 MEQ TAB (K-DUR) PO SCH (06:09)
[2021-02-02] MEDS: MAGNESIUM 1 GM/100 ML IVPB 100 ML IV SCH (06:09)
[2021-02-02] MEDS: VASOPRESSIN INJECTION 20 UNIT in NS (IVPB) 100 ML IV SCH ×2 (06:26→18:39)
[2021-02-02] MEDS: inSUlin ASPART (NovoLOG) 1 UNIT/0.01 ML (CHARGE PER UNIT) SC SCH ×4 (07:50→21:09)
[2021-02-02] MEDS: acetaZOLAMIDE INJ 500 MG/5 ML (DIAMOX) VIAL IV SCH ×2 (08:18→20:43)
[2021-02-02] MEDS: PANTOPRAZOLE 40 MG (PROTONIX) VIAL IV SCH (08:21)
[2021-02-02] MEDS: meTOproloL SUCCINATE 50 MG (TOPROL XL) TAB PO SCH ×2 (08:22→21:09)
[2021-02-02] MEDS: APIXABAN 5 MG (ELIQUIS) TABLET PO SCH ×2 (08:22→21:09)
[2021-02-02] MEDS: methylPREDNISolone 40 MG/ML (Solu-MEDROL) VIAL IV SCH ×2 (08:23→20:43)
[2021-02-02] MEDS: SENNA W/DOCUSATE (SENOKOT S) TABLET PO SCH ×2 (08:23→21:08)
[2021-02-02] MEDS: MICONAZOLE 2% POWDER (DESENEX AF) 90 GM TOP SCH ×2 (08:23→21:10)
[2021-02-02] MEDS: polyethylene glycoL POWDER 17 GM (MIRALAX) PACK PO SCH ×3 (09:00→21:09)
--- NOTE | 2021-02-02 09:45 | Tele-ICU Progress Note ---
Subjective Date Seen by a Provider: Feb 02, 2021 Time Seen by a Provider: 09:34 Sepsis Event Evaluation Height, Weight, BMI Height: 6'2.00" Weight: 263lbs. 3.0oz. 119.987384ic; 40.12 BMI Method:Stated Exam Exam Patient acknowledged, consented, and participated in this virtual visit which was conducted using real time audio/video Vital Signs Date Time Temp Pulse Resp B/P (MAP) Pulse Ox O2 Delivery O2 Flow Rate FiO2 02/02/21 09:00 80 15 122/87 93 High Flow N/C 10.00 02/02/21 08:39 93 NIV Bilevel 10.00 02/02/21 08:15 36.3 02/02/21 08:00 90 18 121/86 94 High Flow N/C 10.00 02/02/21 07:00 93 02/02/21 07:00 101 17 111/74 93 High Flow N/C 10.00 02/02/21 06:49 92 High Flow N/C 10.00 02/02/21 06:26 100 02/02/21 06:20 91 High Flow N/C 10.00 02/02/21 06:00 77 11 118/79 95 NIV Bilevel 60.00 02/02/21 05:00 68 8 116/79 95 NIV Bilevel 60.00 02/02/21 04:00 96 NIV Bilevel 60 02/02/21 04:00 36.5 94 NIV Bilevel 60.00 02/02/21 04:00 77 13 106/76 95 NIV Bilevel 60.00 02/02/21 03:00 69 17 126/81 94 NIV Bilevel 60.00 02/02/21 02:40 75 18 94 60.00 02/02/21 02:14 78 02/02/21 02:00 72 111/80 94 NIV Bilevel 60.00 02/02/21 01:00 64 18 113/70 93 NIV Bilevel 60.00 02/02/21 01:00 64 02/02/21 00:00 36.8 NIV Bilevel 60.00 02/02/21 00:00 80 18 120/72 93 NIV Bilevel 60.00 02/01/21 23:59 96 NIV Bilevel 60 02/01/21 23:00 76 17 131/93 93 NIV Bilevel 60.00 02/01/21 22:23 60.00 02/01/21 22:20 94 20 132/85 92 NIV Bilevel 60.00 02/01/21 22:17 91 High Flow N/C 10.00 02/01/21 22:00 NIV Bilevel 60.00 02/01/21 21:00 112 15 120/85 93 High Flow N/C 10.00 02/01/21 20:00 92 High Flow N/C 10.00 02/01/21 20:00 90 19 133/96 91 High Flow N/C 10.00 02/01/21 19:48 36.7 02/01/21 19:00 92 High Flow N/C 10.00 02/01/21 19:00 117 11 114/79 90 High Flow N/C 10.00 02/01/21 19:00 117 02/01/21 18:54 94 High Flow N/C 10.00 02/01/21 18:00 107 88 High Flow N/C 10.00 02/01/21 17:00 126 92 High Flow N/C 10.00 02/01/21 16:26 37.0 02/01/21 16:00 102 122/77 91 High Flow N/C 10.00 02/01/21 16:00 102 91 High Flow N/C 10.00 02/01/21 16:00 92 High Flow N/C 12.00 02/01/21 15:00 108 88 High Flow N/C 10.00 02/01/21 14:00 101 89 High Flow N/C 10.00 02/01/21 13:50 92 High Flow N/C 12.00 02/01/21 13:25 85 02/01/21 12:18 36.3 02/01/21 12:00 92 High Flow N/C 12.00 02/01/21 12:00 80 21 90/65 94 High Flow N/C 10.00 02/01/21 11:00 128 26 91 High Flow N/C 10.00 02/01/21 10:05 94 High Flow N/C 12.00 02/01/21 10:00 124 14 92 High Flow N/C 10.00 I & O 02/02/21 07:00 Intake Total 2505 ml Output Total 2620 ml Balance -115 ml Height & Weight Height: 6'2.00" Weight: 263lbs. 3.0oz. 119.529679my; 40.12 BMI Method:Stated General Appearance: Mild Distress (constipation), Obese, Other (Confused) HEENT: PERRL/EOMI, Normal ENT Inspection Neck: Non Tender, Supple Respiratory: Decreased Breath Sounds, Wheezing Cardiovascular: Irregularly Irregular, Tachycardia Capillary Refill: Less Than 3 Seconds Gastrointestinal: non tender, soft Extremity: Pedal Edema Neurologic/Psychiatric: Alert Skin: Normal Color Lymphatic: No Adenopathy Results Lab Laboratory Tests 02/01/21 03:18 02/02/21 02:50 Assessment/Plan Assessment/Plan Tele-ICU Physician , Progress Note ) Available chart/ vitals / labs / Images reviewed Video assessment done using teleICU camera, rest of exam as per RN Discussed with RN , EXAM PER RN Events overnight : increased Fio2 Afebrile I/O = POS 1800ml - 3 days positive 5L Drips: cardizem0 Pressors: , hemodynamically stable Sedation gtt: ( RASS- -2 prop 35 fnt 75 VENT SETTINGS and ABG reviewed Not candidate for SBT today REVIEWED Cardiovascular Stability / Sedation Score / FI02/PEEP / ABG / CXR Consultants: jesika Hospital course: 01-25: INTUBATED Unresponsive - Pneumonia - A Fib RVR (Now SR) - Intubated 01/28 - AC 60 % 20 450 + 5 , POS 1800ml - 3 days positive 5L- diuresis attempted - 01/29 - AC 50 % 20 450 + 5 after 3L DIURESIS, changed to DIAMOX 01/30- EXTUBATED 01/31 - back to afib RVR , NC + BIPAP ( CARA , poor comliance 02/01 - 12L NC , BIPAP 16/8 60 % night 02/02 - NC 10 L , on cardizem gtt A/P Acute resp failure , PNA and AECOPD - Intubated 01/25 ( unresponsive with hypercarbia , PNA ) -01/30- EXTUBATED - ont BIPAP 16/8 60 % night ( known CARA - poor conpliance -cxr with small effusion , atelextasi - will cont bipap , start weaning steroids to pO today PNA ( NEG COVID PCR , NEG flu - sputm cx 01/25 - Hflu - in cefepime 01/25- 05/02 - possible aspiration 01/30 - follow AECOPD - IV steroids - decrease 01/30 SM 40 q12 - - nebs A fib RVR on presentation - converted to sinus 01/25 - >> back to a fib RVR 01/26 - cards follow , Currently a-fib with RVR - iv dilt ggt and metoprolol - AC with eliquis -ECHO 01/26/21: LVEF 55-60%, mild to mod enlargement of LA Elevated LFT 01/30 - reglan changed to PRN , other meds ? - not improving > 48 h - US liver pending Chronic hypercarbic rersp failure with COPD - on NIPPV at night at home, suspected poor compliance - ? CARA vs OHS Elevated ddimer on admission - MARCOS - US venous NEG 01/25 - already on AC , low sup for PE - will follow on Eliquis Lines : RIGHT IJ 01/25 (Central Line Necessity Reviewed) Cash: 01/25 O/30 Nutrition: ON HOLD , RESUME AFTER US LIVER Analgesia: Anxiety/ delirium VTE Prophylaxis: eliquis Stress Ulcer Prophylaxis: PPI PT - initiated Plans in collaboration with bedside consultants and IM MDs. Discussed with RN to reach out if any questions or concerns A total of 35 minutes of critical care time was devoted to this patient today, required to treat and/or prevent further deterioration of critical care condition ( as above) . FER VAZQUEZ MD Feb 02, 2021 09:45
--- NOTE | 2021-02-02 10:01 | Progress Note - Cardiology ---
Cardiology SOAP Progress Note Subjective: Lying in bed watching television Feels SOB is improving No c/o CP or palpitations Objective: I&O/Vital Signs 02/04/21 02/04/21 02/04/21 02/04/21 21:00 21:22 22:00 22:02 Pulse 87 94 115 Resp 15 19 25 B/P (MAP) 108/77 120/89 Pulse Ox 93 93 95 91 O2 Delivery High Flow N/C High Flow N/C NIV Bilevel O2 Flow Rate 6.00 6.00 60.00 60.00 02/04/21 02/04/21 02/04/21 02/04/21 22:28 22:29 23:00 23:17 Temp 36.8 Pulse 98 98 101 B/P (MAP) 124/87 Pulse Ox 96 O2 Delivery NIV Bilevel O2 Flow Rate 60.00 02/04/21 02/05/21 02/05/21 02/05/21 23:59 00:00 01:00 01:00 Pulse 110 96 96 Resp 18 17 B/P (MAP) 117/69 104/75 Pulse Ox 92 97 96 O2 Delivery NIV Bilevel NIV Bilevel NIV Bilevel O2 Flow Rate 60.00 60.00 FiO2 60 02/05/21 02/05/21 02/05/21 02/05/21 02:00 02:05 03:00 03:30 Pulse 89 92 92 96 Resp 17 17 16 20 B/P (MAP) 99/74 106/65 Pulse Ox 95 95 96 91 O2 Delivery NIV Bilevel NIV Bilevel High Flow N/C O2 Flow Rate 60.00 60.00 60.00 6.00 02/05/21 02/05/21 02/05/21 02/05/21 04:00 04:00 04:00 05:00 Temp 36.6 Pulse 91 84 Resp 15 18 B/P (MAP) 110/76 105/67 Pulse Ox 92 94 93 O2 Delivery High Flow N/C Nasal Cannula High Flow N/C O2 Flow Rate 6.00 6.00 6.00 02/05/21 02/05/21 02/05/21 02/05/21 06:00 06:27 07:00 07:37 Pulse 108 96 117 Resp 28 13 B/P (MAP) 125/92 121/80 Pulse Ox 93 92 91 O2 Delivery High Flow N/C High Flow N/C High Flow N/C O2 Flow Rate 6.00 6.00 6.00 02/05/21 02/05/21 02/05/21 07:52 08:00 08:00 Temp 36.6 Pulse 106 Resp 8 B/P (MAP) 103/79 Pulse Ox 92 94 O2 Delivery High Flow N/C Nasal Cannula O2 Flow Rate 6.00 6.00 02/05/21 00:00 Intake Total 2600 ml Output Total 2700 ml Balance -100 ml Weight (Pounds): 263 Weight (Ounces): 3.0 Weight (Calculated Kilograms): 119.201492 Constitutional: AAO x 3, other Respiratory: chest expansion is symmetric, chest is bilaterally symmetric, rhonchi (scattered), other (intubated) Cardiovascular: irregularly irregular, tachycardia Extremities: other (bilat pitting and non-pitting edema) Neurologic/Psychiatric: oriented x 3, other (moves all limbs equally) Skin: other (chronic thickening of the skin of the legs and chronic swelling of the legs (bilat)) Results/Procedures: Labs Laboratory Tests 02/04/21 10:47: Glucometer 206H 02/04/21 15:39: Glucometer 217H 02/04/21 20:14: Glucometer 204H 02/05/21 03:25: White Blood Count 15.4H, Red Blood Count 5.45, Hemoglobin 15.0, Hematocrit 49, Mean Corpuscular Volume 89, Mean Corpuscular Hemoglobin 28, Mean Corpuscular Hemoglobin Concent 31L, Red Cell Distribution Width 14.9H, Platelet Count 193, Mean Platelet Volume 11.4, Immature Granulocyte % (Auto) 1, Neutrophils (%) (Auto) 76H, Lymphocytes (%) (Auto) 12, Monocytes (%) (Auto) 10, Eosinophils (%) (Auto) 1, Basophils (%) (Auto) 0, Neutrophils # (Auto) 11.7H, Lymphocytes # (Auto) 1.9, Monocytes # (Auto) 1.6H, Eosinophils # (Auto) 0.1, Basophils # (Auto) 0.0, Immature Granulocyte # (Auto) 0.1, Sodium Level 138, Potassium Level 4.0, Chloride Level 98, Carbon Dioxide Level 32, Anion Gap 8, Blood Urea Nitrogen 27H, Creatinine 0.75, Estimat Glomerular Filtration Rate 106, BUN/Creatinine Ratio 36, Glucose Level 158H, Calcium Level 8.1L, Corrected C alcium 8.7, Phosphorus Level 1.8L, Magnesium Level 1.9, Total Bilirubin 2.3H, Aspartate Amino Transf (AST/SGOT) 52H, Alanine Aminotransferase (ALT/SGPT) 220H, Alkaline Phosphatase 65, Total Protein 5.5L, Albumin 3.2 Microbiology 01/25/21 Gram Stain - Final, Complete 01/25/21 Sputum Culture - Final, Complete Haemophilus influenza Usual upper respiratory andrew 01/25/21 Blood Culture - Final, Complete No growth 01/25/21 Urine Culture - Final, Complete NO GROWTH A/P: Assessment: Pneumonia with resp failure requiring intubation, now extubated - Echo 01/26/21: LVEF 55-60%, mild to mod enlargement of LA P. A-fib/flutter - Typical atrial flutter ablation by Dr. Rankin on 08/24/2018 - Recurrent A Fib/Fl on 08/17/20 with RVR - OAC with Eliquis - Currently a-fib with RVR - controlled with iv dilt and metoprolol HTN Tobaccoism COPD Obesity Bilat LE swelling and chronic stasis dermatitis fo the legs Plan: ICU and Hospitalist service is managing his acute resp failure Continue iv dilt as needed for rate control Increase oral beta-carlos for better vent rate control Continue Eliquis for stroke prophylaxis Monitor lab closely Replace electrolytes as indicated Clinical Quality Measures AMI/AHF: Ejection Fraction %: 55 CASANDRA GERARDO Feb 02, 2021 10:01
--- NOTE | 2021-02-02 11:39 | Physical Therapy Daily Note ---
PT Daily Note-Current Subjective Patient agrees to PT. Mental Status Patient Orientation: Normal For Age Attachments: Oxygen, Cash Catheter, IV Transfers SCALE: Activities may be completed with or without assistive devices. 5-Ihghffyagi-tqjfmwg completes the activity by him/herself with no assistance from a helper. 5-Set-up or Clean-up Assistance-helper sets up or cleans up; patient completes activity. [place] assists only prior to or following the activity. 4-Supervision or Touching Assistance-helper provides verbal cues and/or touching/steadying and/or contact guard assistance as patient completes activity. Assistance may be provided throughout the activity or intermittently. 3-Partial/Moderate Assistance-helper does LESS THAN HALF the effort. [place] lifts, holds or supports trunk or limbs, but provides less than half the effort. 2-Substantial/Maximal Assistance-helper does MORE THAN HALF the effort. [place] lifts or holds trunk or limbs and provides more than half the effort. 5-Zoyxhctcw-llezed does ALL the effort. Patient does none of the effort to complete the activity. Or, the assistance of 2 or more helpers is required for the patient to complete the activity. If activity was not attempted, code reason: 7-Patient Refused. 9-Not Applicable-not attempted and the patient did not perform the activity before the current illness, exacerbation or injury. 10-Not Attempted due to Environmental Limitations-(lack of equipment, weather restraints, etc.). 88-Not Attempted due to Medical Conditions or Safety Concerns. Sit to Lying (QC): 2 Lying to Sitting/Side of Bed(Q: 4 Sit to Stand (QC): 88 (attempted to perform x 3 sets to FWW with inability to complete) Exercises Supine Ex: Ankle pumps, Quad Set, Heel Slides Supine Reps: 12 Seated Therapy Exercises: Ankle pumps, Long arc quads, Hip flexion Seated Reps: 15 Assessment Patient requires time to complete functional tasks. SAO2 decreases to 75% with activity with quick recovery to 88%. Continue to increase activity as tolerated by patient. PT Mcc Goals Mcc Goals PT Mcc Goals Time Frame: Feb 07, 2021 Roll Left & Right (QC): 3 (modA) Sit to Lying (QC): 3 (modA) Lying-Sitting on Side/Bed(QC): 3 (modA) Chair/Oyi-sn-Yuxgn Xfer(QC): 3 (modA) PT Plan Treatment/Plan Treatment Plan: Continue Plan of Care Treatment Plan: Bed Mobility, Education, Functional Activity Rosy, Functional Strength, Gait, Safety, Therapeutic Exercise, Transfers Treatment Duration: Feb 07, 2021 Frequency: 6 times per week Estimated Hrs Per Day: .25 hour per day Patient and/or Family Agrees t: Yes Time/GCodes Time In: 1000 Time Out: 1023 Total Billed Treatment Time: 23 Total Billed Treatment 1 visit EX x 2 23 min SUSANA SPENCE PT Feb 02, 2021 11:39
--- NOTE | 2021-02-02 11:50 | Occupational Ther Daily Note ---
OT Current Status-Daily Note Subjective Pt. alert in bed, family in room. Pt. agrees to therapy. Mental Status/Objective Patient Orientation: Person, Place, Time, Situation Attachments: Cash Catheter, IV, Oxygen, Telemetry ADL-Treatment Therapy Code Descriptions/Definitions Functional [place] Measure: 0=Not Assessed/NA 4=Minimal Assistance 1=Total Assistance 5=Supervision or Setup 2=Maximal Assistance 6=Modified [place] 3=Moderate Assistance 7=Complete IndependenceSCALE: Activities may be completed with or without assistive devices. 5-Zonhrnuhei-vyxrkrn completes the activity by him/herself with no assistance from a helper. 5-Set-up or Clean-up Assistance-helper sets up or cleans up; patient completes activity. [place] assists only prior to or following the activity. 4-Supervision or Touching Assistance-helper provides verbal cues and/or touching/steadying and/or contact guard assistance as patient completes activity. Assistance may be provided throughout the activity or intermittently. 3-Partial/Moderate Assistance-helper does LESS THAN HALF the effort. [place] lifts, holds or supports trunk or limbs, but provides less than half the effort. 2-Substantial/Maximal Assistance-helper does MORE THAN HALF the effort. [place] lifts or holds trunk or limbs and provides more than half the effort. 8-Ngoizbsgx-byxxbu does ALL the effort. Patient does none of the effort to complete the activity. Or, the assistance of 2 or more helpers is required for the patient to complete the activity. If activity was not attempted, code reason: 7-Patient Refused. 9-Not Applicable-not attempted and the patient did not perform the activity before the current illness, exacerbation or injury. 10-Not Attempted due to Environmental Limitations-(lack of equipment, weather restraints, etc.). 88-Not Attempted due to Medical Conditions or Safety Concerns. Other Treatment Informed Pt. that due to HR and O2 levels session will just be in bed arm ex's, Pt. agreeable. Pt. able to perform exercises with no resistance seated in bed. Pt. performed wrist pron/sup, shoulder flex/ext to ~75 where resistance and discomfort felt, elbow flex/ext, radial/ulnar deviation 10 Reps 1 set, 15 reps 1 set. Pt. O2 levels and HR closely monitored, HR never reached over 98 BPM while O2 not below 87. Pt. verbal edu. on purced lip breathing and multiple reminders to perform throughout treatment. Pt. hyper-talkative, articulated the plans to change O2 equipment at home and medications. MELENDEZ assured that it was all for pt's safety and health, Pt. agreed. Pt. lying in bed, call light/phone in reach. All needs met in room. Education OT Patient Education: Correct positioning, Exercise program, Home exercise program Teaching Recipient: Patient, Family Teaching Methods: Demonstration, Discussion Response to Teaching: Verbalize Understanding, Return Demonstration, Re inforcement Needed OT Jail Goals Functional Consultant Goals Time Frame: Feb 16, 2021 Eating (QC): 6 Oral Hygiene (QC): 6 Toileting Hygiene (QC): 4 Shower/Bathe Self (QC): 3 Upper Body Dressing (QC): 4 Lower Body Dressing (QC): 3 1=Demonstrate adherence to instructed precautions during ADL tasks. 2=Patient will verbalize/demonstrate understanding of assistive devices/modifications for ADL. 3=Patient will improve strength/tolerance for activity to enable patient to perform ADL's. OT Education/Plan Problem List/Assessment Assessment: Decreased Activ Tolerance, Decreased Safety Aware, Decreased UE Strength, Impaired Self-Care Skills, Restricted Funct UE ROM Discharge Recommendations Plan/Recommendations: Continue POC Treatment Plan/Plan of Care Patient would benefit from OT for education, treatment and training to promote independence in ADL's, mobility, safety and/or upper extremity function for ADL's. Plan of Care: ADL Retraining, Functional Mobility, UE Funct Exercise/Act Treatment Duration: Feb 16, 2021 Frequency: 5 times per week Estimated Hrs Per Day: .25 hour per day Rehab Potential: Guarded Time/GCodes Start Time: 11:22 Stop Time: 11:38 Total Time Billed (hr/min): 16 Billed Treatment Time 1 visit- EX 1 (16 min) ZAK BOYD Feb 02, 2021 11:50
--- NOTE | 2021-02-02 13:16 | Progress Note - Hospitalist ---
TOMMIE PUCKETT 02/02/21 1316: Subjective HPI/CC On Admission Date Seen by Provider: Feb 02, 2021 Time Seen by Provider: 08:00 COPD exacerbation Bilateral pneumonia Respiratory failure Subjective/Events-last exam Pt awaiting abdominal US Hematuria reported last night; improved from cranberry to "red hue" by morning CXR showed slightly worsening bibasilar opacities and dec lung vol; enteric catheter was removed Cough sounds productive O2 stats dropped to 75% with movement during PT Pt reports constipation has improved, had a bowel movement (non-bloody) Pt reports painful lesions on rear HR was noted to have improved in the room (85) compared to last vitals (110) Review of Systems General: Malaise Pulmonary: Cough Gastrointestinal: Nausea (feels like he's going to "hurl") Musculoskeletal: other (painful lesions on rear) Neurological: Incoordination (still progressing with fine motor movements) Focused Exam Respiratory: Decreased Breath Sounds, Wheezing Cardiovascular: No Murmur, Irregularly Irregular Objective Exam Vital Signs Vital Signs Date Time Temp Pulse Resp B/P (MAP) Pulse Ox O2 Delivery O2 Flow Rate FiO2 02/02/21 13:06 73 108/88 02/02/21 13:00 22 93 High Flow N/C 10.00 02/02/21 11:46 36.8 02/02/21 04:00 60 Capillary Refill : Less Than 3 Seconds General Appearance: Mild Distress, Obese Respiratory: No Accessory Muscle Use, Wheezing Cardiovascular: Irregularly Irregular Gastrointestinal: Distended Extremity: Pedal Edema Neurologic/Psychiatric: Alert, Oriented x3 Results/Procedures Lab Laboratory Tests 02/02/21 02:50 Patient resulted labs reviewed. Assessment/Plan Assessment and Plan Assess & Plan/Chief Complaint Assessment Chronic respiratory failure- continued hypoxia, milka w movement Atrial fibrillation with rapid ventricular response Obesity Lesions on buttocks Hyperglycemia (218) Hyperbilirubinemia Hypermagnesemia Burping Plan: Continue diltiazem/metoprolol for AFib w/ RVR per cardiology consult Bowels improved; continue ondansetron for nausea Consider PPI for continuous burping Continue PT/OT Monitor ALT (242) Continue 12L nasal cannula for hypoxia Continue insulin trt Oral anticoagulation for stroke prophylaxis Continue to monitor in ICU High risk intubation Consider wound care for lesions Diagnosis/Problems Diagnosis/Problems (1) COPD exacerbation Status: Acute (2) DVT prophylaxis Status: Acute (3) Bilateral pneumonia Status: Acute Qualifiers: Qualified Codes: J18.9 - Pneumonia, unspecified organism (4) Respiratory failure with hypoxia and hypercapnia Status: Acute Qualifiers: Qualified Codes: J96.01 - Acute respiratory failure with hypoxia; J96.02 - Acute respiratory failure with hypercapnia (5) Afib Clinical Quality Measures AMI/AHF: Ejection Fraction %: 55 SANDRA BLACK MD 02/02/21 1605: Assessment/Plan Assessment and Plan Assess & Plan/Chief Complaint Acute on chronic respiratory failure with hypoxia and hypercapnia COPD exacerbation Pneumonia Continue supplemental oxygen as needed Continue steroids MAT protocol Received course of antibiotics Encourage BiPAP compliance AFib with RVR Cardiology following Cardizem Metoprolol Eliquis Elevated LFTs Normal on arrival, now improving Likely drug induced liver injury Liver ultrasound unremarkable GERD PPI T2DM Sliding scale insulin Debility PT/OT Diagnosis/Problems Diagnosis/Problems (1) Acute on chronic respiratory failure with hypoxia and hypercapnia Status: Acute (2) COPD exacerbation Status: Acute (3) PNA (pneumonia) Status: Acute (4) Atrial fibrillation with RVR Status: Acute (5) Elevated LFTs Status: Acute (6) GERD (gastroesophageal reflux disease) Status: Acute (7) Debility (8) T2DM (type 2 diabetes mellitus) Status: Acute Supervisory-Addendum Brief Verification & Attestation Participated in pt care: history, MDM, physical Personally performed: exam, history, MDM, supervision of care Care discussed with: Medical Student Procedures: n/a Results interpretation: Verified all documentation A medical student performed and documented this service in my presence. I reviewed and verified all information documented by the medical student and made modifications to such information, when appropriate. I personally performed the physical exam and medical decision making. TOMMIE PUCKETT Feb 02, 2021 13:16 SANDRA BLACK MD Feb 02, 2021 16:05
--- NOTE | 2021-02-02 13:38 | Diagnostic Imaging Report ---
PROCEDURE: Ultrasound abdomen complete. TECHNIQUE: Multiple real-time grayscale images were obtained of the abdomen in various projections. INDICATION: Elevated liver function tests. COMPARISON: There are no prior studies available for comparison. FINDINGS: This study was technically difficult due to the patient's body habitus. There is also considerable amount of bowel gas present. The liver was visualized and does not seem to be enlarged. There is no focal mass involving the liver, and the biliary tree is not abnormally dilated. Spectral color-flow imaging of the portal vein shows the vein is patent. There is no evidence for cholelithiasis or acute cholecystitis. The common bile duct was not well visualized. The pancreas, the aorta, and the left kidney were also difficult to evaluate due to overlying bowel gas. The spleen and right kidney show no sign of an acute abnormality. There do appear to be two exophytic cysts arising from the right kidney. These measure 4.6 x 3.9 x 4.4 cm and 3.5 x 3.2 x 3.9 cm. These cysts have a generally benign appearance. There is no solid abdominal mass or free fluid collection noted. IMPRESSION: The abdomen, where visualized, shows no evidence for an acute abnormality. However, the common bile duct, the pancreas, the aorta, and the left kidney were not well imaged. If further study is desired, then CT would be recommended. Dictated by: Dictated on workstation # [id number]
--- NOTE | 2021-02-02 16:16 | Progress Note - Cardiology ---
Cardiology SOAP Progress Note Subjective: No cp or palp or syncope Shortness of breath and swelling are improving No n/v/d Gen malaise and weakness present Objective: I&O/Vital Signs 02/02/21 02/02/21 02/02/21 02/02/21 05:00 06:00 06:20 06:26 Pulse 68 77 100 Resp 8 11 B/P (MAP) 116/79 118/79 Pulse Ox 95 95 91 O2 Delivery NIV Bilevel NIV Bilevel High Flow N/C O2 Flow Rate 60.00 60.00 10.00 02/02/21 02/02/21 02/02/21 02/02/21 06:49 07:00 07:00 08:00 Pulse 101 93 90 Resp 17 18 B/P (MAP) 111/74 121/86 Pulse Ox 92 93 94 O2 Delivery High Flow N/C High Flow N/C High Flow N/C O2 Flow Rate 10.00 10.00 10.00 02/02/21 02/02/21 02/02/21 02/02/21 08:15 08:39 09:00 10:00 Temp 36.3 Pulse 80 96 Resp 15 20 B/P (MAP) 122/87 125/78 Pulse Ox 93 93 92 O2 Delivery NIV Bilevel High Flow N/C High Flow N/C O2 Flow Rate 10.00 10.00 10.00 02/02/21 02/02/21 02/02/21 02/02/21 11:00 11:32 11:46 12:00 Temp 36.8 Pulse 105 74 Resp 26 22 B/P (MAP) 134/88 108/88 Pulse Ox 92 93 95 O2 Delivery High Flow N/C NIV Bilevel High Flow N/C O2 Flow Rate 10.00 12.00 10.00 02/02/21 02/02/21 02/02/21 02/02/21 13:00 13:00 13:06 14:00 Pulse 73 78 73 79 Resp 22 20 B/P (MAP) 113/80 108/88 113/89 Pulse Ox 93 94 O2 Delivery High Flow N/C High Flow N/C O2 Flow Rate 10.00 10.00 02/02/21 02/02/21 02/02/21 02/02/21 14:31 15:00 16:00 16:05 Temp 36.6 Pulse 68 100 Resp 20 11 B/P (MAP) 121/84 123/95 Pulse Ox 91 91 92 O2 Delivery High Flow N/C High Flow N/C High Flow N/C O2 Flow Rate 10.00 10.00 10.00 02/02/21 00:00 Intake Total 1540 ml Output Total 1220 ml Balance 320 ml Weight (Pounds): 263 Weight (Ounces): 3.0 Weight (Calculated Kilograms): 119.516834 Constitutional: AAO x 3, other Respiratory: chest expansion is symmetric, chest is bilaterally symmetric, rhonchi (scattered), other (intubated) Cardiovascular: irregularly irregular, tachycardia Extremities: other (bilat pitting and non-pitting edema) Neurologic/Psychiatric: oriented x 3, other (moves all limbs equally) Skin: other (chronic thickening of the skin of the legs and chronic swelling of the legs (bilat)) Results/Procedures: Labs Laboratory Tests 02/01/21 16:17: Glucometer 201H 02/01/21 20:25: Glucometer 169H 02/02/21 02:50: White Blood Count 10.1, Red Blood Count 5.34, Hemoglobin 14.7, Hematocrit 48, Mean Corpuscular Volume 90, Mean Corpuscular Hemoglobin 28, Mean Corpuscular Hemoglobin Concent 31L, Red Cell Distribution Width 15.2H, Platelet Count 210, Mean Platelet Volume 11.0, Immature Granulocyte % (Auto) 1, Neutrophils (%) (Auto) 90H, Lymphocytes (%) (Auto) 4L, Monocytes (%) (Auto) 5, Eosinophils (%) (Auto) 0, Basophils (%) (Auto) 0, Neutrophils # (Auto) 9.1H, Lymphocytes # (Auto) 0.4L, Monocytes # (Auto) 0.5, Eosinophils # (Auto) 0.0, Basophils # (Auto) 0.0, Immature Granulocyte # (Auto) 0.1, Sodium Level 138, Potassium Level 4.4, Chloride Level 102, Carbon Dioxide Level 28, Anion Gap 8, Blood Urea Nitrogen 36H, Creatinine 0.81, Estimat Glomerular Filtration Rate 97, BUN/Creatinine Ratio 44, Glucose Level 229H, Calcium Level 8.2L, Corrected Calcium 8.8, Phosphorus Level 2.7, Magnesium Level 2.6H, Total Bilirubin 1.7H, Aspartate Amino Transf (AST/SGOT) 54H, Alanine Aminotransferase (ALT/SGPT) 242H, Alkaline Phosphatase 51, Total Protein 5.9L, Albumin 3.2 02/02/21 08:38: 02/02/21 10:28: Glucometer 218H 02/02/21 16:10: Glucometer 210H Microbiology 01/25/21 Gram Stain - Final, Complete 01/25/21 Sputum Culture - Final, Complete Haemophilus influenza Usual upper respiratory andrew 01/25/21 Blood Culture - Final, Complete No growth 01/25/21 Urine Culture - Final, Complete NO GROWTH A/P: Assessment: Pneumonia with resp failure requiring intubation, now extubated - Echo 01/26/21: LVEF 55-60%, mild to mod enlargement of LA P. A-fib/flutter - Typical atrial flutter ablation by Dr. Rankin on 08/24/2018 - Recurrent A Fib/Fl on 08/17/20 with RVR - OAC with Eliquis - Currently a-fib with RVR - controlled with iv dilt and metoprolol HTN Tobaccoism COPD Obesity Bilat LE swelling and chronic stasis dermatitis fo the legs Plan: ICU and Hospitalist service is managing his acute resp failure Change to oral dilt and continue oral beta-carlos for better vent rate control Continue Eliquis for stroke prophylaxis Monitor lab closely Replace electrolytes as indicated Clinical Quality Measures AMI/AHF: Ejection Fraction %: 55 EULA COLLAZO MD FACP [facility] Feb 02, 2021 16:16
[2021-02-02 21:11] LABS: HEPATITIS C ANTIBODY C Non-Reactive (Non-Reactive)
[2021-02-02 23:11] VITALS: BP 122/82
[2021-02-03 02:04] VITALS: BP 142/100
[2021-02-03] MEDS: RT-ALBUTEROL/IPRATROPIUM 3 ML (DUONEB) VIAL INH SCH ×6 (02:04→21:29)
[2021-02-03 03:36] LABS: BASOPHILS % (AUTO) 0 % (0-10); EOSINOPHILS % (AUTO) 0 % (0-10); HEMATOCRIT 50 % (40-54); LYMPHOCYTES # (AUTO) 0.5 10^3/uL (1.0-4.0); LYMPHOCYTES % (AUTO) 4 % (12-44); MEAN CORPUSCULAR HEMOGLOBIN 27 pg (25-34); MEAN CORPUSCULAR HGB CONC 30 g/dL (32-36); MEAN CORPUSCULAR VOLUME 89 fL (80-99); MEAN PLATELET VOLUME 11.1 fL (9.0-12.2); MONOCYTES # (AUTO) 0.5 10^3/uL (0.0-1.0); MONOCYTES % (AUTO) 5 % (0-12); NEUTROPHILS # (AUTO) 10.3 10^3/uL (1.8-7.8); NEUTROPHILS % (AUTO) 90 % (42-75); PLATELET COUNT 225 10^3/uL (130-400); WHITE BLOOD COUNT 11.4 10^3/uL (4.3-11.0)
[2021-02-03 03:47] LABS: ALBUMIN 3.4 GM/DL (3.2-4.5); POTASSIUM 4.3 MMOL/L (3.6-5.0)
[2021-02-03 03:48] LABS: CALCIUM 8.4 MG/DL (8.5-10.1)
[2021-02-03 03:51] LABS: BILIRUBIN,TOTAL 1.6 MG/DL (0.1-1.0)
[2021-02-03 03:53] LABS: CREATININE SERUM 0.76 MG/DL (0.60-1.30); PHOSPHORUS 2.3 MG/DL (2.3-4.7)
[2021-02-03 03:56] LABS: MAGNESIUM 2.3 MG/DL (1.6-2.4)
[2021-02-03] MEDS: VASOPRESSIN INJECTION 20 UNIT in NS (IVPB) 100 ML IV SCH ×2 (04:21→14:40)
[2021-02-03] MEDS: inSUlin ASPART (NovoLOG) 1 UNIT/0.01 ML (CHARGE PER UNIT) SC SCH ×4 (05:54→20:28)
[2021-02-03] MEDS: MAGNESIUM 1 GM/100 ML IVPB 100 ML IV SCH (06:00)
[2021-02-03] MEDS: KCL 20 MEQ TAB (K-DUR) PO SCH (06:00)
[2021-02-03] MEDS: POTASSIUM CL 10MEQ/50ML IVPB 50 ML IV SCH (06:00)
[2021-02-03] MEDS: SENNA W/DOCUSATE (SENOKOT S) TABLET PO SCH ×2 (08:16→20:27)
[2021-02-03] MEDS: methylPREDNISolone 40 MG/ML (Solu-MEDROL) VIAL IV SCH (08:16)
[2021-02-03] MEDS: meTOproloL SUCCINATE 50 MG (TOPROL XL) TAB PO SCH ×2 (08:16→20:27)
[2021-02-03] MEDS: PANTOPRAZOLE 40 MG (PROTONIX) VIAL IV SCH (08:16)
[2021-02-03] MEDS: APIXABAN 5 MG (ELIQUIS) TABLET PO SCH ×2 (08:16→20:28)
[2021-02-03] MEDS: MICONAZOLE 2% POWDER (DESENEX AF) 90 GM TOP SCH ×2 (08:20→20:28)
[2021-02-03] MEDS: NOREPINEPHRINE 8 MG/250 ML 250 ML IV SCH ×2 (08:20→18:22)
[2021-02-03] MEDS: polyethylene glycoL POWDER 17 GM (MIRALAX) PACK PO SCH ×2 (08:20→20:28)
[2021-02-03] MEDS: dilTIAZem DRIP PRE-MIX 125 ML IV SCH (08:20)
[2021-02-03] MEDS: acetaZOLAMIDE INJ 500 MG/5 ML (DIAMOX) VIAL IV SCH (09:54)
--- NOTE | 2021-02-03 10:21 | Tele-ICU Progress Note ---
Subjective Date Seen by a Provider: Feb 03, 2021 Time Seen by a Provider: 10:21 Sepsis Event Evaluation Height, Weight, BMI Height: 6'2.00" Weight: 263lbs. 3.0oz. [id number]; 40.12 BMI Method:Stated Exam Exam Patient acknowledged, consented, and participated in this virtual visit which was conducted using real time audio/video Vital Signs Date Time Temp Pulse Resp B/P (MAP) Pulse Ox O2 Delivery O2 Flow Rate FiO2 02/03/21 10:00 113 16 126/99 92 High Flow N/C 6.00 02/03/21 09:00 79 19 109/83 90 High Flow N/C 6.00 02/03/21 08:02 36.6 02/03/21 08:00 138 32 90 High Flow N/C 6.00 02/03/21 08:00 90 High Flow N/C 6.00 02/03/21 07:03 93 High Flow N/C 10.00 02/03/21 07:00 109 02/03/21 07:00 96 16 137/97 88 NIV Bilevel 60.00 02/03/21 06:00 112 15 117/90 92 NIV Bilevel 60.00 02/03/21 05:00 104 17 133/82 92 NIV Bilevel 60.00 02/03/21 04:36 36.8 02/03/21 04:00 108 20 135/92 94 NIV Bilevel 60.00 02/03/21 03:00 88 19 129/78 97 NIV Bilevel 60.00 02/03/21 02:04 106 20 96 60.00 02/03/21 02:00 82 18 123/76 98 NIV Bilevel 60.00 02/03/21 01:00 91 02/03/21 01:00 81 19 134/90 94 NIV Bilevel 60.00 02/03/21 00:19 NIV Bilevel 60.00 02/03/21 00:00 102 16 122/95 94 High Flow N/C 10.00 02/03/21 00:00 36.3 02/02/21 23:11 85 18 93 60.00 02/02/21 23:00 117 19 122/82 92 High Flow N/C 10.00 02/02/21 22:34 92 140/96 02/02/21 22:00 90 24 144/96 92 High Flow N/C 10.00 02/02/21 21:47 93 High Flow N/C 10.00 02/02/21 21:00 89 21 135/95 92 High Flow N/C 10.00 02/02/21 20:25 93 High Flow N/C 10.00 02/02/21 20:00 92 20 101/89 92 High Flow N/C 10.00 02/02/21 19:18 36.5 02/02/21 19:00 100 02/02/21 19:00 97 22 131/83 92 High Flow N/C 10.00 02/02/21 18:39 98 125/70 02/02/21 18:20 93 High Flow N/C 10.00 02/02/21 18:00 98 16 125/70 92 High Flow N/C 10.00 02/02/21 17:00 105 20 133/89 95 High Flow N/C 10.00 02/02/21 16:23 93 NIV Bilevel 10.00 02/02/21 16:05 36.6 02/02/21 16:00 100 11 123/95 92 High Flow N/C 10.00 02/02/21 15:00 68 20 121/84 91 High Flow N/C 10.00 02/02/21 14:31 91 High Flow N/C 10.00 02/02/21 14:00 79 20 113/89 94 High Flow N/C 10.00 02/02/21 13:06 73 108/88 02/02/21 13:00 78 22 113/80 93 High Flow N/C 10.00 02/02/21 13:00 73 02/02/21 12:00 74 22 108/88 95 High Flow N/C 10.00 02/02/21 11:46 36.8 02/02/21 11:32 93 NIV Bilevel 12.00 02/02/21 11:00 105 26 134/88 92 High Flow N/C 10.00 I & O 02/03/21 07:00 Intake Total 1860 ml Output Total 2800 ml Balance -940 ml Height & Weight Height: 6'2.00" Weight: 263lbs. 3.0oz. 119.477863ci; 40.12 BMI Method:Stated General Appearance: Mild Distress, Obese HEENT: PERRL/EOMI, Normal ENT Inspection Neck: Non Tender, Supple Respiratory: No Accessory Muscle Use, Wheezing Cardiovascular: Irregularly Irregular Capillary Refill: Less Than 3 Seconds Gastrointestinal: non tender, soft Extremity: Pedal Edema Neurologic/Psychiatric: Alert, Oriented x3 Skin: Normal Color Lymphatic: No Adenopathy Results Lab Laboratory Tests 02/02/21 02:50 02/03/21 03:15 Assessment/Plan Assessment/Plan Tele-ICU Physician , Progress Note ) Available chart/ vitals / labs / Images reviewed Video assessment done using teleICU camera, rest of exam as per RN Discussed with RN , EXAM PER RN Events overnight : increased Fio2 Afebrile I/O =neg 1000 Drips: cardizem0 Pressors: , hemodynamically stable Consultants: jesika Hospital course: 01-25: INTUBATED Unresponsive - Pneumonia - A Fib RVR (Now SR) - Intubated 01/28 - AC 60 % 20 450 + 5 , POS 1800ml - 3 days positive 5L- diuresis attempted - 01/29 - AC 50 % 20 450 + 5 after 3L DIURESIS, changed to DIAMOX 01/30- EXTUBATED 01/31 - back to afib RVR , NC + BIPAP ( CARA , poor comliance 02/01 - 12L NC , BIPAP 16/8 60 % night 02/02 - NC 10 L , on cardizem gtt 02/02 -US liver -no evidence for cholelithiasis or acute cholecystitis, The common bile duct was not well visualized 02/03 - at night compliant with BIPAP NS 6 l A/P Acute resp failure , PNA and AECOPD - Intubated 01/25 ( unresponsive with hypercarbia , PNA ) -01/30- EXTUBATED - ont BIPAP 16/8 60 % night ( known CARA - poor conpliance -cxr with small effusion , atelectasis - WILL CONT BIPAP at NIGHT , start weaning steroids to pO today PNA ( NEG COVID PCR , NEG flu - sputm cx 01/25 - Hflu - in cefepime 01/25- 05/02 - possible aspiration 01/30 - follow AECOPD - IV steroids - decrease 01/30 SM 40 q12 - change to PO 02/03 - nebs A fib RVR on presentation - converted to sinus 01/25 - >> back to a fib RVR 01/26 - cards follow , Currently a-fib with RVR - iv dilt GTT OFF - PO as per cards - AC with eliquis -ECHO 01/26/21: LVEF 55-60%, mild to mod enlargement of LA Elevated LFT 01/30 - reglan changed to PRN , other meds ? - not improving > 3 d --> US liver -no evidence for cholelithiasis or acute cholecystitis, The common bile duct was not well visualized Chronic hypercarbic rersp failure with COPD - on NIPPV at night at home, suspected poor compliance - ? CARA vs OHS Elevated ddimer on admission - MARCOS - US venous NEG 01/25 - already on AC , low sup for PE - will follow on Eliquis Hematuria 02/03 - better today , follow Lines : RIGHT IJ 01/25 (Central Line Necessity Reviewed) Cash: 01/25 O/30 Nutrition: ON HOLD , RESUME AFTER US LIVER Analgesia: Anxiety/ delirium VTE Prophylaxis: eliquis Stress Ulcer Prophylaxis: PPI PT - initiated Plans in collaboration with bedside consultants and IM MDs. Discussed with RN to reach out if any questions or concerns A total of 35 minutes of critical care time was devoted to this patient today, required to treat and/or prevent further deterioration of critical care condition ( as above) . FER VAZQUEZ MD Feb 03, 2021 10:21
[2021-02-03] MEDS ORDERED: dilTIAZem120 MG (CARDIZEM CD) CAP PO ONE (14:30)
--- NOTE | 2021-02-03 14:38 | Progress Note - Hospitalist ---
Subjective HPI/CC On Admission Date Seen by Provider: Feb 03, 2021 Time Seen by Provider: 10:30 COPD exacerbation Bilateral pneumonia Respiratory failure Subjective/Events-last exam He is feeling better. He is not short of breath. He is not having pain. Objective Exam Vital Signs Vital Signs Date Time Temp Pulse Resp B/P (MAP) Pulse Ox O2 Delivery O2 Flow Rate FiO2 02/03/21 14:00 103 19 127/89 92 High Flow N/C 6.00 02/03/21 11:56 36.4 02/02/21 04:00 60 Capillary Refill : Less Than 3 Seconds General Appearance: No Apparent Distress, Chronically ill, Obese Respiratory: Lungs Clear, Normal Breath Sounds, No Respiratory Distress Cardiovascular: No Edema, No Murmur, Irregularly Irregular Gastrointestinal: Normal Bowel Sounds, Non Tender, Soft Extremity: Normal Inspection, Non Tender, No Pedal Edema Neurologic/Psychiatric: Alert, Oriented x3, Normal Mood/Affect Skin: Normal Color, Warm/Dry Results/Procedures Lab Laboratory Tests 02/03/21 03:15 Patient resulted labs reviewed. Assessment/Plan Assessment and Plan Assess & Plan/Chief Complaint Acute on chronic respiratory failure with hypoxia and hypercapnia COPD exacerbation Pneumonia Continue supplemental oxygen as needed Continue steroids, transitioned to oral MAT protocol Received course of antibiotics Continue BiPAP AFib with RVR Rates improved this morning Cardiology following Cardizem Metoprolol Eliquis Elevated LFTs Normal on arrival, now improving Likely drug induced liver injury Liver ultrasound unremarkable GERD PPI T2DM Sliding scale insulin Debility PT/OT Critical Care Critically Ill Patient Diagnosis/Problems Diagnosis/Problems (1) Acute on chronic respiratory failure with hypoxia and hypercapnia Status: Acute (2) COPD exacerbation Status: Acute (3) PNA (pneumonia) Status: Acute (4) Atrial fibrillation with RVR Status: Acute (5) Elevated LFTs Status: Acute (6) GERD (gastroesophageal reflux disease) Status: Acute (7) Debility (8) T2DM (type 2 diabetes mellitus) Status: Acute Clinical Quality Measures AMI/AHF: Ejection Fraction %: 55 SANDRA BLACK MD Feb 03, 2021 14:38
--- NOTE | 2021-02-03 14:41 | Physical Therapy Daily Note ---
PT Daily Note-Current Subjective Pt reports he can get to the side of the bed but will need time to catch his breath. Transfers SCALE: Activities may be completed with or without assistive devices. 8-Cipxtwbikw-roerlaf completes the activity by him/herself with no assistance from a helper. 5-Set-up or Clean-up Assistance-helper sets up or cleans up; patient completes activity. [place] assists only prior to or following the activity. 4-Supervision or Touching Assistance-helper provides verbal cues and/or touching/steadying and/or contact guard assistance as patient completes activity. Assistance may be provided throughout the activity or intermittently. 3-Partial/Moderate Assistance-helper does LESS THAN HALF the effort. [place] lifts, holds or supports trunk or limbs, but provides less than half the effort. 2-Substantial/Maximal Assistance-helper does MORE THAN HALF the effort. [place] lifts or holds trunk or limbs and provides more than half the effort. 5-Qhvdxpcjr-zkofci does ALL the effort. Patient does none of the effort to complete the activity. Or, the assistance of 2 or more helpers is required for the patient to complete the activity. If activity was not attempted, code reason: 7-Patient Refused. 9-Not Applicable-not attempted and the patient did not perform the activity before the current illness, exacerbation or injury. 10-Not Attempted due to Environmental Limitations-(lack of equipment, weather restraints, etc.). 88-Not Attempted due to Medical Conditions or Safety Concerns. Supine to sit at edge of bed with moderate assist for legs and trunk. Exercises Seated Therapy Exercises: Sit to stand Seated Reps: 3 Attempted sit to stand x 3 trials using FWW. Pt was not able to come to full standing and became unsafe after the 3rd trial due to fatigue. Sat at EOB x 20 minutes where he did intermittent LE exercise in addition to cued breathing. PT Dance Costume Designer Goals Dance Costume Designer Goals PT Skilled Nursing Goals Time Frame: Feb 07, 2021 Roll Left & Right (QC): 3 (modA) Sit to Lying (QC): 3 (modA) Lying-Sitting on Side/Bed(QC): 3 (modA) Chair/Jbh-ea-Ngxbg Xfer(QC): 3 (modA) PT Plan Treatment/Plan Treatment Plan: Continue Plan of Care Treatment Plan: Bed Mobility, Education, Functional Activity Rosy, Functional Strength, Gait, Safety, Therapeutic Exercise, Transfers Treatment Duration: Feb 07, 2021 Frequency: 6 times per week Estimated Hrs Per Day: .25 hour per day Patient and/or Family Agrees t: Yes Time/GCodes Time In: 905 Time Out: 930 Total Billed Treatment Time: 25 Total Billed Treatment visit, FA 25 minutes DERECK COTE PT Feb 03, 2021 14:41
--- NOTE | 2021-02-03 15:10 | Progress Note - Cardiology ---
Cardiology SOAP Progress Note Subjective: Gen malaise and weakness present No n/v/d No cp or palp or syncope Short of breath with mild activity Objective: I&O/Vital Signs 02/03/21 02/03/21 02/03/21 02/03/21 04:00 04:36 05:00 06:00 Temp 36.8 Pulse 108 104 112 Resp 20 17 15 B/P (MAP) 135/92 133/82 117/90 Pulse Ox 94 92 92 O2 Delivery NIV Bilevel NIV Bilevel NIV Bilevel O2 Flow Rate 60.00 60.00 60.00 02/03/21 02/03/21 02/03/21 02/03/21 07:00 07:00 07:03 08:00 Pulse 96 109 Resp 16 B/P (MAP) 137/97 Pulse Ox 88 93 90 O2 Delivery NIV Bilevel High Flow N/C High Flow N/C O2 Flow Rate 60.00 10.00 6.00 02/03/21 02/03/21 02/03/21 02/03/21 08:00 08:02 09:00 10:00 Temp 36.6 Pulse 138 79 113 Resp 32 19 16 B/P (MAP) 109/83 126/99 Pulse Ox 90 90 92 O2 Delivery High Flow N/C High Flow N/C High Flow N/C O2 Flow Rate 6.00 6.00 6.00 02/03/21 02/03/21 02/03/21 02/03/21 10:42 11:00 11:23 11:56 Temp 36.4 Pulse 103 Resp 21 B/P (MAP) 113/88 Pulse Ox 91 92 90 O2 Delivery High Flow N/C High Flow N/C High Flow N/C O2 Flow Rate 8.00 6.00 6.00 02/03/21 02/03/21 02/03/21 02/03/21 12:00 13:00 13:00 14:00 Pulse 100 90 132 103 Resp 15 21 19 B/P (MAP) 113/87 127/89 Pulse Ox 93 91 92 O2 Delivery High Flow N/C High Flow N/C High Flow N/C O2 Flow Rate 6.00 6.00 6.00 02/03/21 14:51 Pulse Ox 90 O2 Delivery High Flow N/C O2 Flow Rate 6.00 02/03/21 00:00 Intake Total 1560 ml Output Total 1525 ml Balance 35 ml Weight (Pounds): 263 Weight (Ounces): 3.0 Weight (Calculated Kilograms): 119.233462 Constitutional: AAO x 3, other Respiratory: chest expansion is symmetric, chest is bilaterally symmetric, rhonchi (scattered), other (intubated) Cardiovascular: irregularly irregular, tachycardia Extremities: other (bilat pitting and non-pitting edema) Neurologic/Psychiatric: oriented x 3, other (moves all limbs equally) Skin: other (chronic thickening of the skin of the legs and chronic swelling of the legs (bilat)) Results/Procedures: Labs Laboratory Tests 02/02/21 16:10: Glucometer 210H 02/02/21 20:47: Glucometer 194H 02/03/21 03:15: White Blood Count 11.4H, Red Blood Count 5.57H, Hemoglobin 15.0, Hematocrit 50, Mean Corpuscular Volume 89, Mean Corpuscular Hemoglobin 27, Mean Corpuscular Hem oglobin Concent 30L, Red Cell Distribution Width 15.1H, Platelet Count 225, Mean Platelet Volume 11.1, Immature Granulocyte % (Auto) 1, Neutrophils (%) (Auto) 90H, Lymphocytes (%) (Auto) 4L, Monocytes (%) (Auto) 5, Eosinophils (%) (Auto) 0, Basophils (%) (Auto) 0, Neutrophils # (Auto) 10.3H, Lymphocytes # (Auto) 0.5L , Monocytes # (Auto) 0.5, Eosinophils # (Auto) 0.0, Basophils # (Auto) 0.0, Imm ature Granulocyte # (Auto) 0.1, Sodium Level 139, Potassium Level 4.3, Chloride Level 102, Carbon Dioxide Level 27, Anion Gap 10, Blood Urea Nitrogen 31H, Creatinine 0.76, Estimat Glomerular Filtration Rate 104, BUN/Creatinine Ratio 41 , Glucose Level 229H, Calcium Level 8.4L, Corrected Calcium 8.9, Phosphorus Level 2.3, Magnesium Level 2.3, Total Bilirubin 1.6H, Aspartate Amino Transf (AST/SGOT) 46H, Alanine Aminotransferase (ALT/SGPT) 204H, Alkaline Phosphatase 62, Total Protein 6.0L, Albumin 3.4 02/03/21 05:52: Glucometer 195H 02/03/21 10:43: Glucometer 247H Microbiology 01/25/21 Gram Stain - Final, Complete 01/25/21 Sputum Culture - Final, Complete Haemophilus influenza Usual upper respiratory andrew 01/25/21 Blood Culture - Final, Complete No growth 01/25/21 Urine Culture - Final, Complete NO GROWTH A/P: Assessment: Pneumonia with resp failure requiring intubation, now extubated - Echo 01/26/21: LVEF 55-60%, mild to mod enlargement of LA P. A-fib/flutter - Typical atrial flutter ablation by Dr. Rankin on 08/24/2018 - Recurrent A Fib/Fl on 08/17/20 with RVR - OAC with Eliquis - Currently a-fib with RVR - not well controlled HTN Tobaccoism COPD Obesity Bilat LE swelling and chronic stasis dermatitis fo the legs Plan: Increase long-acting diltiazem for better vent rate control Change diuretic from Diamox to furosemide ICU and Hospitalist service is managing his acute resp failure Continue Eliquis for stroke prophylaxis Monitor lab closely Replace electrolytes as indicated Clinical Quality Measures AMI/AHF: Ejection Fraction %: 55 EULA COLLAZO MD FACP FAC [facility] Feb 03, 2021 15:10
[2021-02-03] MEDS: FUROSEMIDE 40 MG/4 ML INJ (LASIX) IVP SCH (17:15)
[2021-02-03] MEDS: KCL 10 MEQ TAB (MICRO K) PO SCH (17:15)
[2021-02-03] MEDS ORDERED: DIGOXIN 0.25 MG/ML (LANOXIN) 2 ML AMP IV ONE ×3 (18:15→22:15)
[2021-02-03] MEDS ORDERED: DIGOXIN 0.25 MG/ML (LANOXIN) 2 ML AMP ONE ×2 (18:19→20:19)
[2021-02-03] MEDS ORDERED: FUROSEMIDE 40 MG/4 ML INJ (LASIX) IVP ONE (21:00)
[2021-02-03 21:29] VITALS: BP 115/82
[2021-02-04 01:48] VITALS: BP 111/69
[2021-02-04] MEDS: RT-ALBUTEROL/IPRATROPIUM 3 ML (DUONEB) VIAL INH SCH ×6 (01:48→21:21)
[2021-02-04] MEDS: VASOPRESSIN INJECTION 20 UNIT in NS (IVPB) 100 ML IV SCH ×3 (01:54→22:28)
[2021-02-04 04:05] LABS: BASOPHILS % (AUTO) 0 % (0-10); EOSINOPHILS % (AUTO) 0 % (0-10); HEMATOCRIT 48 % (40-54); HEMOGLOBIN 14.6 g/dL (13.3-17.7); LYMPHOCYTES # (AUTO) 1.1 10^3/uL (1.0-4.0); LYMPHOCYTES % (AUTO) 9 % (12-44); MEAN CORPUSCULAR HEMOGLOBIN 27 pg (25-34); MEAN CORPUSCULAR HGB CONC 31 g/dL (32-36); MEAN CORPUSCULAR VOLUME 89 fL (80-99); MEAN PLATELET VOLUME 10.7 fL (9.0-12.2); MONOCYTES # (AUTO) 1.3 10^3/uL (0.0-1.0); MONOCYTES % (AUTO) 10 % (0-12); NEUTROPHILS # (AUTO) 10.5 10^3/uL (1.8-7.8); NEUTROPHILS % (AUTO) 81 % (42-75); PLATELET COUNT 197 10^3/uL (130-400)
[2021-02-04 04:13] LABS: ALBUMIN 3.2 GM/DL (3.2-4.5); POTASSIUM 4.1 MMOL/L (3.6-5.0)
[2021-02-04 04:14] LABS: CALCIUM 8.2 MG/DL (8.5-10.1)
[2021-02-04 04:16] LABS: TOTAL PROTEIN 5.5 GM/DL (6.4-8.2)
[2021-02-04 04:17] LABS: BILIRUBIN,TOTAL 1.6 MG/DL (0.1-1.0)
[2021-02-04 04:19] LABS: CREATININE SERUM 0.76 MG/DL (0.60-1.30); PHOSPHORUS 1.8 MG/DL (2.3-4.7)
[2021-02-04 04:22] LABS: MAGNESIUM 2.1 MG/DL (1.6-2.4)
[2021-02-04] MEDS: NOREPINEPHRINE 8 MG/250 ML 250 ML IV SCH ×3 (04:32→22:29)
[2021-02-04] MEDS: POTASSIUM CL 10MEQ/50ML IVPB 50 ML IV SCH (05:13)
[2021-02-04] MEDS: MAGNESIUM 1 GM/100 ML IVPB 100 ML IV SCH (05:14)
[2021-02-04] MEDS: KCL 20 MEQ TAB (K-DUR) PO SCH (05:14)
[2021-02-04] MEDS: inSUlin ASPART (NovoLOG) 1 UNIT/0.01 ML (CHARGE PER UNIT) SC SCH ×4 (05:36→20:37)
[2021-02-04] MEDS: FUROSEMIDE 40 MG/4 ML INJ (LASIX) IVP SCH ×2 (06:42→15:57)
[2021-02-04] MEDS: predniSONE 20 MG TAB PO SCH (06:42)
[2021-02-04] MEDS: APIXABAN 5 MG (ELIQUIS) TABLET PO SCH ×2 (08:04→20:36)
[2021-02-04] MEDS: meTOproloL SUCCINATE 50 MG (TOPROL XL) TAB PO SCH ×2 (08:04→20:36)
[2021-02-04] MEDS: KCL 10 MEQ TAB (MICRO K) PO SCH ×2 (08:04→19:23)
[2021-02-04] MEDS: MICONAZOLE 2% POWDER (DESENEX AF) 90 GM TOP SCH ×2 (08:05→20:37)
[2021-02-04] MEDS: SENNA W/DOCUSATE (SENOKOT S) TABLET PO SCH ×2 (08:05→20:37)
[2021-02-04] MEDS: PANTOPRAZOLE 40 MG (PROTONIX) VIAL IV SCH (08:05)
[2021-02-04] MEDS: polyethylene glycoL POWDER 17 GM (MIRALAX) PACK PO SCH ×2 (08:05→20:37)
[2021-02-04] MEDS: dilTIAZem DRIP PRE-MIX 125 ML IV SCH (09:47)
--- NOTE | 2021-02-04 10:27 | Tele-ICU Progress Note ---
Progress Note video rounds completed 60 y/o male admitte dwith resp failure and PNA was intubated om 01/25, extubated 01/30 Using nightly BIPAP Cardiology on consult for a fib/flutter No controllled PE: eating breakfast this am in bed HR: 106 irregular BP: 114/100 Focused Exam Height, Weight, BMI Height: 6'2.00" Weight: 263lbs. 3.0oz. 119.786975ds; 40.12 BMI Method:Stated Labs Laboratory Tests 02/04/21 03:57 JAVI RANDALL MD Feb 04, 2021 10:27
[2021-02-04 11:04] VITALS: BP 114/100
--- NOTE | 2021-02-04 13:45 | Progress Note - Hospitalist ---
Subjective HPI/CC On Admission Date Seen by Provider: Feb 04, 2021 Time Seen by Provider: 10:05 COPD exacerbation Bilateral pneumonia Respiratory failure Subjective/Events-last exam He is feeling better. He does not feel short of breath. He is not having any palpitations or chest pain. He is eating and drinking. He has family at the bedside. Objective Exam Vital Signs Vital Signs Date Time Temp Pulse Resp B/P (MAP) Pulse Ox O2 Delivery O2 Flow Rate FiO2 02/04/21 12:56 100 02/04/21 12:00 93 Nasal Cannula 6.00 02/04/21 12:00 18 122/82 02/04/21 11:57 36.3 02/04/21 04:07 60 Capillary Refill : Less Than 3 Seconds General Appearance: No Apparent Distress, Obese Respiratory: Lungs Clear, Normal Breath Sounds, No Respiratory Distress Cardiovascular: No Murmur, Irregularly Irregular, Tachycardia Gastrointestinal: Normal Bowel Sounds, Non Tender, Soft Extremity: Normal Inspection, Non Tender, No Pedal Edema Neurologic/Psychiatric: Alert, Oriented x3, Normal Mood/Affect, Motor Weakness Skin: Normal Color, Warm/Dry Results/Procedures Lab Laboratory Tests 02/04/21 03:57 Patient resulted labs reviewed. Assessment/Plan Assessment and Plan Assess & Plan/Chief Complaint Acute on chronic respiratory failure with hypoxia and hypercapnia COPD exacerbation Continue supplemental oxygen as needed Continue steroids, transitioned to oral MAT protocol Received course of antibiotics Continue BiPAP at night AFib with RVR Rates remain elevated Cardiology following Continue Cardizem and Metoprolol s/p Digoxin Continue Eliquis Elevated LFTs Normal on arrival, relatively stable Likely drug induced liver injury, unclear cause Liver ultrasound unremarkable GERD PPI T2DM Sliding scale insulin Debility PT/OT Pneumonia, resolved Diagnosis/Problems Diagnosis/Problems (1) Acute on chronic respiratory failure with hypoxia and hypercapnia Status: Acute (2) COPD exacerbation Status: Acute (3) PNA (pneumonia) Status: Acute (4) Atrial fibrillation with RVR Status: Acute (5) Elevated LFTs Status: Acute (6) GERD (gastroesophageal reflux disease) Status: Acute (7) Debility (8) T2DM (type 2 diabetes mellitus) Status: Acute Clinical Quality Measures AMI/AHF: Ejection Fraction %: 55 SANDRA BLACK MD Feb 04, 2021 13:45
--- NOTE | 2021-02-04 15:30 | Progress Note - Cardiology ---
Cardiology SOAP Progress Note Subjective: No cp or palp or syncope Shortness of breath with mild to mod activity Gen malaise and weakness present No n/v/d Objective: I&O/Vital Signs 02/04/21 02/04/21 02/04/21 02/04/21 04:00 04:05 04:07 05:00 Temp 36.4 Pulse 88 99 Resp 17 17 B/P (MAP) 116/72 100/76 Pulse Ox 96 94 96 O2 Delivery NIV Bilevel NIV Bilevel NIV Bilevel O2 Flow Rate 60.00 60.00 FiO2 60 02/04/21 02/04/21 02/04/21 02/04/21 06:00 06:36 07:00 07:00 Pulse 91 90 95 Resp 20 17 B/P (MAP) 116/102 122/82 Pulse Ox 97 91 90 O2 Delivery NIV Bilevel High Flow N/C NIV Bilevel O2 Flow Rate 60.00 6.00 60.00 02/04/21 02/04/21 02/04/21 02/04/21 07:43 08:00 08:00 09:00 Temp 36.5 Pulse 105 105 Resp 21 16 B/P (MAP) 116/74 112/74 Pulse Ox 90 92 92 O2 Delivery NIV Bilevel Nasal Cannula NIV Bilevel O2 Flow Rate 60.00 6.00 60.00 02/04/21 02/04/21 02/04/21 02/04/21 10:00 10:43 10:46 10:46 Pulse 151 151 151 Resp 27 B/P (MAP) 114/100 114/100 114/100 Pulse Ox 91 93 O2 Delivery NIV Bilevel High Flow N/C O2 Flow Rate 60.00 6.00 02/04/21 02/04/21 02/04/21 02/04/21 11:00 11:04 11:57 12:00 Temp 36.5 36.3 Pulse 115 98 121 Resp 16 18 B/P (MAP) 111/79 122/82 Pulse Ox 94 93 93 O2 Delivery NIV Bilevel NIV Bilevel O2 Flow Rate 60.00 60.00 02/04/21 02/04/21 02/04/21 02/04/21 12:00 12:56 13:00 14:00 Pulse 100 89 105 Resp 19 23 B/P (MAP) 113/70 127/85 Pulse Ox 93 93 91 O2 Delivery Nasal Cannula NIV Bilevel NIV Bilevel O2 Flow Rate 6.00 60.00 60.00 02/04/21 02/04/21 14:45 15:00 Pulse 92 Resp 18 B/P (MAP) 123/79 Pulse Ox 92 93 O2 Delivery High Flow N/C NIV Bilevel O2 Flow Rate 6.00 60.00 02/04/21 00:00 Intake Total 1330 ml Output Total 2325 ml Balance -995 ml Weight (Pounds): 263 Weight (Ounces): 3.0 Weight (Calculated Kilograms): 119.550787 Constitutional: AAO x 3, other Respiratory: chest expansion is symmetric, chest is bilaterally symmetric, rhonchi (scattered), other (intubated) Cardiovascular: irregularly irregular, tachycardia Extremities: other (bilat pitting and non-pitting edema) Neurologic/Psychiatric: oriented x 3, other (moves all limbs equally) Skin: other (chronic thickening of the skin of the legs and chronic swelling of the legs (bilat)) Results/Procedures: Labs Laboratory Tests 02/03/21 20:27: Glucometer 193H 02/04/21 03:57: White Blood Count 13.0H, Red Blood Count 5.36, Hemoglobin 14.6, Hematocrit 48, Mean Corpuscular Volume 89, Mean Corpuscular Hemoglobin 27, Mean Corpuscular Hemoglobin Concent 31L, Red Cell Distribution Width 15.1H, Platelet Count 197, Mean Platelet Volume 10.7, Immature Granulocyte % (Auto) 1, Neutrophils (%) (Auto) 81H, Lymphocytes (%) (Auto) 9L, Monocytes (%) (Auto) 10, Eosinophils (%) (Auto) 0, Basophils (%) (Auto) 0, Neutrophils # (Auto) 10.5H, Lymphocytes # (Auto) 1.1, Monocytes # (Auto) 1.3H, Eosinophils # (Auto) 0.0, Basophils # (Auto) 0.0, Immature Granulocyte # (Auto) 0.1, Sodium Level 139, Potassium Level 4.1, Chloride Level 101, Carbon Dioxide Level 29, Anion Gap 9, Blood Urea Nitrogen 30H, Creatinine 0.76, Estimat Glomerular Filtration Rate 104, BUN/Creatinine Ratio 39, Glucose Level 205H, Calcium Level 8.2L, Corrected Calcium 8.8, Phosphorus Level 1.8L, Magnesium Level 2.1, Total Bilirubin 1.6H, Aspartate Amino Transf (AST/SGOT) 61H, Alanine Aminotransferase (ALT/SGPT) 224H, Alkaline Phosphatase 68, Total Protein 5.5L, Albumin 3.2 02/04/21 05:34: Glucometer 202H 02/04/21 10:47: Glucometer 206H Microbiology 01/25/21 Gram Stain - Final, Complete 01/25/21 Sputum Culture - Final, Complete Haemophilus influenza Usual upper respiratory andrew 01/25/21 Blood Culture - Final, Complete No growth 01/25/21 Urine Culture - Final, Complete NO GROWTH Laboratory Tests 02/03/21 03:15 02/04/21 03:57 A/P: Assessment: Pneumonia with resp failure requiring intubation, now extubated - Echo 01/26/21: LVEF 55-60%, mild to mod enlargement of LA P. A-fib/flutter - Typical atrial flutter ablation by Dr. Rankin on 08/24/2018 - Recurrent A Fib/Fl on 08/17/20 with RVR - OAC with Eliquis - Currently a-fib with RVR - not well controlled HTN Tobaccoism COPD Obesity Bilat LE swelling and chronic stasis dermatitis fo the legs Plan: Long-acting diltiazem increase for better vent rate control Change diuretics as needed and as tolerated ICU and Hospitalist service is managing his acute resp failure Continue Eliquis for stroke prophylaxis Monitor lab closely Clinical Quality Measures AMI/AHF: Ejection Fraction %: 55 EULA COLLAZO MD FACP [facility] Feb 04, 2021 15:30
[2021-02-04] MEDS ORDERED: dilTIAZem120 MG (CARDIZEM CD) CAP PO SCH (19:00)
[2021-02-04] MEDS ORDERED: dilTIAZem120 MG (CARDIZEM CD) CAP PO ONE (19:20)
[2021-02-04] MEDS: ONDANSETRON 4 MG/2 ML (SDV) Z0FRAN IVP PRN (19:23)
[2021-02-04] MEDS ORDERED: ACETAMINOPHEN 325 MG TABLET ONE (21:51)
--- NOTE | 2021-02-04 21:51 | Tele-ICU Progress Note ---
Progress Note Pt with Hx of chronic back pain, asking for some pain relief. Tylenol 650 mg x 1 PO ordered. D/W the bedside nurse to call if pain persists. Interventions Minor-Other: Chr back pain Focused Exam Height, Weight, BMI Height: 6'2.00" Weight: 263lbs. 3.0oz. 119.775266pm; 40.12 BMI Method:Stated MARGOT FORREST MD Feb 04, 2021 21:51
[2021-02-04] MEDS ORDERED: ACETAMINOPHEN 325 MG TABLET PO ONE (22:00)
[2021-02-04 22:02] VITALS: BP 108/77
[2021-02-05] MEDS: RT-ALBUTEROL/IPRATROPIUM 3 ML (DUONEB) VIAL INH SCH ×6 (02:04→22:37)
[2021-02-05 03:33] LABS: BASOPHILS % (AUTO) 0 % (0-10); EOSINOPHILS # (AUTO) 0.1 10^3/uL (0.0-0.3); EOSINOPHILS % (AUTO) 1 % (0-10); HEMATOCRIT 49 % (40-54); LYMPHOCYTES # (AUTO) 1.9 10^3/uL (1.0-4.0); LYMPHOCYTES % (AUTO) 12 % (12-44); MEAN CORPUSCULAR HEMOGLOBIN 28 pg (25-34); MEAN CORPUSCULAR HGB CONC 31 g/dL (32-36); MEAN CORPUSCULAR VOLUME 89 fL (80-99); MEAN PLATELET VOLUME 11.4 fL (9.0-12.2); MONOCYTES # (AUTO) 1.6 10^3/uL (0.0-1.0); MONOCYTES % (AUTO) 10 % (0-12); NEUTROPHILS # (AUTO) 11.7 10^3/uL (1.8-7.8); NEUTROPHILS % (AUTO) 76 % (42-75); PLATELET COUNT 193 10^3/uL (130-400); WHITE BLOOD COUNT 15.4 10^3/uL (4.3-11.0)
[2021-02-05 03:46] LABS: ALBUMIN 3.2 GM/DL (3.2-4.5)
[2021-02-05 03:47] LABS: CALCIUM 8.1 MG/DL (8.5-10.1)
[2021-02-05 03:49] LABS: TOTAL PROTEIN 5.5 GM/DL (6.4-8.2)
[2021-02-05 03:50] LABS: BILIRUBIN,TOTAL 2.3 MG/DL (0.1-1.0)
[2021-02-05 03:52] LABS: PHOSPHORUS 1.8 MG/DL (2.3-4.7)
[2021-02-05 03:53] LABS: CREATININE SERUM 0.75 MG/DL (0.60-1.30)
[2021-02-05 03:55] LABS: MAGNESIUM 1.9 MG/DL (1.6-2.4)
[2021-02-05] MEDS: POTASSIUM CL 10MEQ/50ML IVPB 50 ML IV SCH (04:21)
[2021-02-05] MEDS: MAGNESIUM 1 GM/100 ML IVPB 100 ML IV SCH (04:22)
[2021-02-05] MEDS: KCL 20 MEQ TAB (K-DUR) PO SCH (04:23)
[2021-02-05] MEDS: inSUlin ASPART (NovoLOG) 1 UNIT/0.01 ML (CHARGE PER UNIT) SC SCH ×4 (04:48→20:27)
[2021-02-05] MEDS: ONDANSETRON 4 MG/2 ML (SDV) Z0FRAN IVP PRN ×3 (05:39→22:28)
[2021-02-05] MEDS: FUROSEMIDE 40 MG/4 ML INJ (LASIX) IVP SCH ×2 (05:40→16:12)
[2021-02-05] MEDS: predniSONE 20 MG TAB PO SCH (05:40)
[2021-02-05] MEDS: dilTIAZem DRIP PRE-MIX 125 ML IV SCH (07:14)
[2021-02-05] MEDS: PANTOPRAZOLE 40 MG (PROTONIX) VIAL IV SCH (07:59)
[2021-02-05] MEDS: polyethylene glycoL POWDER 17 GM (MIRALAX) PACK PO SCH ×2 (07:59→20:27)
[2021-02-05] MEDS: SENNA W/DOCUSATE (SENOKOT S) TABLET PO SCH ×2 (07:59→20:27)
[2021-02-05] MEDS: APIXABAN 5 MG (ELIQUIS) TABLET PO SCH ×2 (07:59→20:27)
[2021-02-05] MEDS: KCL 10 MEQ TAB (MICRO K) PO SCH ×2 (07:59→18:20)
[2021-02-05] MEDS: meTOproloL SUCCINATE 50 MG (TOPROL XL) TAB PO SCH ×2 (07:59→20:27)
[2021-02-05] MEDS: MICONAZOLE 2% POWDER (DESENEX AF) 90 GM TOP SCH ×2 (08:00→20:28)
--- NOTE | 2021-02-05 08:37 | Progress Note - Cardiology ---
Cardiology SOAP Progress Note Subjective: Sitting up in bed He states he feels his breathing is "pretty good" No c/o CP C/O lower back pain Freq loose cough Objective: I&O/Vital Signs 02/05/21 02/05/21 02/05/21 02/05/21 22:37 22:59 23:00 23:32 Temp 36.5 Pulse 71 Resp 20 B/P (MAP) 96/68 Pulse Ox 93 92 O2 Delivery High Flow N/C High Flow N/C High Flow N/C NIV Bilevel O2 Flow Rate 6.00 6.00 6.00 60.00 02/05/21 02/06/21 02/06/21 02/06/21 23:32 00:00 00:07 01:00 Pulse 64 100 Resp 18 B/P (MAP) 113/78 Pulse Ox 94 94 O2 Delivery NIV Bilevel NIV Bilevel High Flow N/C O2 Flow Rate 60.00 6.00 FiO2 60 02/06/21 02/06/21 02/06/21 02/06/21 01:20 02:00 02:01 02:38 Temp 36.4 Pulse 124 105 Resp 20 34 B/P (MAP) 110/80 116/84 Pulse Ox 93 93 93 O2 Delivery High Flow N/C High Flow N/C High Flow N/C High Flow N/C O2 Flow Rate 6.00 6.00 6.00 6.00 02/06/21 02/06/21 02/06/21 02/06/21 03:00 04:00 04:10 05:00 Pulse 96 141 128 Resp 14 17 26 B/P (MAP) 147/89 127/92 120/80 Pulse Ox 93 90 92 91 O2 Delivery High Flow N/C High Flow N/C High Flow N/C High Flow N/C O2 Flow Rate 6.00 6.00 6.00 6.00 02/06/21 02/06/21 02/06/21 02/06/21 06:15 07:00 07:24 07:52 Temp 36.3 Pulse 130 92 Resp 17 B/P (MAP) 123/80 Pulse Ox 93 92 O2 Delivery High Flow N/C High Flow N/C O2 Flow Rate 6.00 6.00 02/06/21 02/06/21 07:52 07:54 Pulse 130 B/P (MAP) 123/80 Pulse Ox 93 O2 Delivery High Flow N/C O2 Flow Rate 6.00 02/06/21 00:00 Intake Total 1100 ml Output Total 1975 ml Balance -875 ml Weight (Pounds): 263 Weight (Ounces): 3.0 Weight (Calculated Kilograms): 119.537662 Constitutional: AAO x 3, other Respiratory: chest expansion is symmetric, chest is bilaterally symmetric, rhonchi (scattered), other (intubated) Cardiovascular: irregularly irregular, tachycardia Extremities: other (bilat pitting and non-pitting edema) Neurologic/Psychiatric: oriented x 3, other (moves all limbs equally) Skin: other (chronic thickening of the skin of the legs and chronic swelling of the legs (bilat)) Results/Procedures: Labs Laboratory Tests 02/05/21 11:12: Glucometer 258H 02/05/21 16:04: Glucometer 192H 02/05/21 20:12: Glucometer 248H 02/05/21 21:15: Blood Gas Puncture Site LEFT RADIAL, Blood Gas Patient Temperature 36.7, Arterial Blood pH 7.33*L, Arterial Blood Partial Pressure CO2 58H, Arterial Blood Partial Pressure O2 64L, Arterial Blood HCO3 30H, Arterial Blood Total CO2 32.1H, Arterial Blood Oxygen Saturation 93L, Arterial Blood Base Excess 4.7H, Jair Test YES-POS, Blood Gas Ventilator Setting NO, Blood Gas Inspired Oxygen 91% 02/06/21 03:15: White Blood Count 21.1H, Red Blood Count 5.93H, Hemoglobin 16.3, Hematocrit 52, Mean Corpuscular Volume 88, Mean Corpuscular Hemoglobin 28, Mean Corpuscular Hemoglobin Concent 31L, Red Cell Distribution Width 14.3, Platelet Count 212, Mean Platelet Volume 11.6, Immature Granulocyte % (Auto) 1, Neutrophils (%) (Auto) 87H, Lymphocytes (%) (Auto) 6L, Monocytes (%) (Auto) 7, Eosinophils (%) (Auto) 0, Basophils (%) (Auto) 0, Neutrophils # (Auto) 18.3H, Lymphocytes # (Auto) 1.3, Monocytes # (Auto) 1.4H, Eosinophils # (Auto) 0.0, Basophils # (Auto) 0.0, Immature Granulocyte # (Auto) 0.1, Neutrophils % (Manual) 85, Lymphocytes % (Manual) 5, Monocytes % (Manual) 9, Band Neutrophils 1, Sodium Level 135, Potassium Level 4.6, Chloride Level 95L, Carbon Dioxide Level 29, Anion Gap 11, Blood Urea Nitrogen 32H, Creatinine 0.83, Estimat Glomerular Filtration Rate 94, BUN/Creatinine Ratio 39, Glucose Level 185H, Calcium Level 8.8, Magnesium Level 2.0 Microbiology 01/25/21 Gram Stain - Final, Complete 01/25/21 Sputum Culture - Final, Complete Haemophilus influenza Usual upper respiratory andrew 01/25/21 Blood Culture - Final, Complete No growth 01/25/21 Urine Culture - Final, Complete NO GROWTH A/P: Assessment: Pneumonia with resp failure requiring intubation, now extubated - Echo 01/26/21: LVEF 55-60%, mild to mod enlargement of LA P. A-fib/flutter - Typical atrial flutter ablation by Dr. Rankin on 08/24/2018 - Recurrent A Fib/Fl on 08/17/20 with RVR - OAC with Eliquis - Currently a-fib with RVR - not well controlled HTN - somewhat low BP Tobaccoism - cessation advised COPD Obesity Bilat LE swelling and chronic stasis dermatitis of the legs Plan: Long-acting diltiazem increased for better vent rate control - somewhat better - add Digoxin, d/t somewhat low BP this prevents us from further increasing BB Adjust diuretics as needed and as tolerated ICU and Hospitalist service is managing his acute resp failure Continue Eliquis for stroke prophylaxis Monitor lab closely Clinical Quality Measures AMI/AHF: Ejection Fraction %: 55 CASANDRA GERARDO Feb 05, 2021 08:37
[2021-02-05] MEDS ORDERED: DIGOXIN 0.25 MG/ML (LANOXIN) 2 ML AMP IV ONE (08:45)
--- NOTE | 2021-02-05 10:12 | Tele-ICU Progress Note ---
Subjective Date Seen by a Provider: Feb 05, 2021 Time Seen by a Provider: 10:11 Sepsis Event Evaluation Height, Weight, BMI Height: 6'2.00" Weight: 263lbs. 3.0oz. 119.439155vn; 40.12 BMI Method:Stated Exam Exam Patient acknowledged, consented, and participated in this virtual visit which was conducted using real time audio/video Vital Signs Date Time Temp Pulse Resp B/P (MAP) Pulse Ox O2 Delivery O2 Flow Rate FiO2 02/05/21 09:05 91 High Flow N/C 6.00 02/05/21 09:00 86 23 104/72 91 High Flow N/C 6.00 02/05/21 08:00 94 Nasal Cannula 6.00 02/05/21 08:00 106 8 103/79 92 High Flow N/C 6.00 02/05/21 07:52 36.6 02/05/21 07:37 91 High Flow N/C 6.00 02/05/21 07:00 117 13 121/80 92 High Flow N/C 6.00 02/05/21 06:27 96 02/05/21 06:00 108 28 125/92 93 High Flow N/C 6.00 02/05/21 05:00 84 18 105/67 93 High Flow N/C 6.00 02/05/21 04:00 36.6 02/05/21 04:00 94 Nasal Cannula 6.00 02/05/21 04:00 91 15 110/76 92 High Flow N/C 6.00 02/05/21 03:30 96 20 91 High Flow N/C 6.00 02/05/21 03:00 92 16 106/65 96 NIV Bilevel 60.00 02/05/21 02:05 92 17 95 60.00 02/05/21 02:00 89 17 99/74 95 NIV Bilevel 60.00 02/05/21 01:00 96 02/05/21 01:00 96 17 104/75 96 NIV Bilevel 60.00 02/05/21 00:00 110 18 117/69 97 NIV Bilevel 60.00 02/04/21 23:59 92 NIV Bilevel 60 02/04/21 23:17 36.8 02/04/21 23:00 101 124/87 96 NIV Bilevel 60.00 02/04/21 22:29 98 02/04/21 22:28 98 02/04/21 22:02 115 25 91 60.00 02/04/21 22:00 94 19 120/89 95 NIV Bilevel 60.00 02/04/21 21:22 93 High Flow N/C 6.00 02/04/21 21:00 87 15 108/77 93 High Flow N/C 6.00 02/04/21 20:00 92 Nasal Cannula 6.00 02/04/21 20:00 99 15 117/67 92 High Flow N/C 6.00 02/04/21 19:40 36.6 02/04/21 19:00 93 02/04/21 19:00 93 23 97/66 91 High Flow N/C 6.00 02/04/21 18:00 106 17 125/82 93 NIV Bilevel 60.00 02/04/21 17:00 114 11 133/90 93 NIV Bilevel 60.00 02/04/21 16:00 98 12 114/82 92 NIV Bilevel 60.00 02/04/21 15:52 36.6 02/04/21 15:44 92 Nasal Cannula 6.00 02/04/21 15:00 92 18 123/79 93 NIV Bilevel 60.00 02/04/21 14:45 92 High Flow N/C 6.00 02/04/21 14:00 105 23 127/85 91 NIV Bilevel 60.00 02/04/21 13:00 89 19 113/70 93 NIV Bilevel 60.00 02/04/21 12:56 100 02/04/21 12:00 93 Nasal Cannula 6.00 02/04/21 12:00 121 18 122/82 93 NIV Bilevel 60.00 02/04/21 11:57 36.3 02/04/21 11:04 36.5 98 93 02/04/21 11:00 115 16 111/79 94 NIV Bilevel 60.00 02/04/21 10:46 151 114/100 02/04/21 10:46 151 114/100 02/04/21 10:43 93 High Flow N/C 6.00 I & O 02/05/21 07:00 Intake Total 4050 ml Output Total 4950 ml Balance -900 ml Height & Weight Height: 6'2.00" Weight: 263lbs. 3.0oz. 119.640546rh; 40.12 BMI Method:Stated General Appearance: No Apparent Distress, Obese HEENT: PERRL/EOMI, Normal ENT Inspection Neck: Non Tender, Supple Respiratory: Lungs Clear, Normal Breath Sounds, No Respiratory Distress Cardiovascular: No Murmur, Irregularly Irregular, Tachycardia Capillary Refill: Less Than 3 Seconds Gastrointestinal: non tender, soft Extremity: Normal Inspection, Non Tender, No Pedal Edema Neurologic/Psychiatric: Alert, Oriented x3, Normal Mood/Affect, Motor Weakness Skin: Normal Color, Warm/Dry Lymphatic: No Adenopathy Results Lab Laboratory Tests 02/04/21 03:57 02/05/21 03:25 Assessment/Plan Assessment/Plan Tele-ICU Physician , Progress Note ) Available chart/ vitals / labs / Images reviewed Video assessment done using teleICU camera, rest of exam as per RN Discussed with RN , EXAM PER RN Events overnight : tachycardia Afebrile I/O =neg 1999 Drips: cardizem OFF Pressors: , hemodynamically stable Consultants: jesika Hospital course: 01-25: INTUBATED Unresponsive - Pneumonia - A Fib RVR (Now SR) - Intubated 01/28 - AC 60 % 20 450 + 5 , POS 1800ml - 3 days positive 5L- diuresis attempted - 01/29 - AC 50 % 20 450 + 5 after 3L DIURESIS, changed to DIAMOX 01/30- EXTUBATED 01/31 - back to afib RVR , NC + BIPAP ( CARA , poor comliance 02/01 - 12L NC , BIPAP 16/8 60 % night 02/02 - NC 10 L , on cardizem gtt 02/02 -US liver -no evidence for cholelithiasis or acute cholecystitis, The common bile duct was not well visualized 02/03 - at night compliant with BIPAP NS 6 l , OFF cardizem GTT 02/04 - 6L o2 A/P Acute resp failure , PNA and AECOPD - Intubated 01/25 ( unresponsive with hypercarbia , PNA ) -01/30- EXTUBATED - ont BIPAP 16/8 60 % night ( ? known CARA - poor conpliance WILL CONT BIPAP at NIGHT , WILL CHECK ABG AT EVENING TIME TO ASSESS BASELINE - REGARDLESS OF RESULT WILL CONT NOCTURNAL NIPPV NOW -weaning steroids PNA ( NEG COVID PCR , NEG flu - sputm cx 01/25 - Hflu - in cefepime 01/25- 05/02 - possible aspiration 01/30 - follow LEukocytosis -02/03 - keep rising 10 oth and 11th - ? steroid related , FOLLOW OFF ABX AECOPD - IV steroids - decrease 01/30 SM 40 q12 - change to PO 02/03 - wean down - nebs A fib RVR on presentation - converted to sinus 01/25 - >> back to a fib RVR 01/26 - cards follow , Currently a-fib with RVR - iv dilt GTT OFF - PO as per cards - AC with eliquis -ECHO 01/26/21: LVEF 55-60%, mild to mod enlargement of LA Elevated LFT 01/30 - persistent - reglan changed to PRN , other meds ? - not improving > 3 d --> US liver 02/03 -no evidence for cholelithiasis or acute cholecystitis, The common bile duct was not well visualized Chronic hypercarbic rersp failure with COPD - on NIPPV at night at home, suspected poor compliance - ? CARA vs OHS - tolerates bipap here Elevated ddimer on admission - MARCOS - US venous NEG 01/25 - already on AC , low sup for PE - will follow on Eliquis Hematuria 02/03 - better today , follow Lines : RIGHT IJ 01/25 (Central Line Necessity Reviewed) Cash: 01/25 O/30 Nutrition: ON HOLD , RESUME AFTER US LIVER Analgesia: Anxiety/ delirium VTE Prophylaxis: eliquis Stress Ulcer Prophylaxis: PPI PT - initiated Plans in collaboration with bedside consultants and IM MDs. Discussed with RN to reach out if any questions or concerns A total of 35 minutes of critical care time was devoted to this patient today, required to treat and/or prevent further deterioration of critical care condition ( as above) . FER VAZQUEZ MD Feb 05, 2021 10:12
--- NOTE | 2021-02-05 11:31 | Physical Therapy Daily Note ---
PT Daily Note-Current Subjective Patient states, "I want out of this bed." Agrees to PT. Mental Status Patient Orientation: Normal For Age Attachments: Oxygen, Cash Catheter Transfers SCALE: Activities may be completed with or without assistive devices. 2-Xoqmoggmkt-ofpnjle completes the activity by him/herself with no assistance from a helper. 5-Set-up or Clean-up Assistance-helper sets up or cleans up; patient completes activity. [place] assists only prior to or following the activity. 4-Supervision or Touching Assistance-helper provides verbal cues and/or touching/steadying and/or contact guard assistance as patient completes a ctivity. Assistance may be provided throughout the activity or intermittently. 3-Partial/Moderate Assistance-helper does LESS THAN HALF the effort. [place] lifts, holds or supports trunk or limbs, but provides less than half the effort. 2-Substantial/Maximal Assistance-helper does MORE THAN HALF the effort. [place] lifts or holds trunk or limbs and provides more than half the effort. 5-Jcpvpfzwp-wcremd does ALL the effort. Patient does none of the effort to complete the activity. Or, the assistance of 2 or more helpers is required for the patient to complete the activity. If activity was not attempted, code reason: 7-Patient Refused. 9-Not Applicable-not attempted and the patient did not perform the activity before the current illness, exacerbation or injury. 10-Not Attempted due to Environmental Limitations-(lack of equipment, weather restraints, etc.). 88-Not Attempted due to Medical Conditions or Safety Concerns. Lying to Sitting/Side of Bed(Q: 3 Sit to Stand (QC): 1 (x 2) Chair/Xlr-ha-Kmtkv Xfer(QC): 1 (x 2) Patient had difficulty with attaining stand to FWW requiring dependent assist of 2 Gait Training Does the Patient Walk?: No and Walking Goal IS indicated Exercises Supine Ex: Ankle pumps, Heel Slides, Hip abd/add Supine Reps: 10 Seated Therapy Exercises: Long arc quads Seated Reps: 12 Assessment SAO2 decreased to 86% with activity with quick recovery. HR is elevated 160's. RN is present. Patient up in recliner with needs met. Sit to stand lift to be utilized for patient and staff safety. PT Programmer Operator Numerical Control Goals Programmer Operator Numerical Control Goals PT Programmer Operator Numerical Control Goals Time Frame: Feb 07, 2021 Roll Left & Right (QC): 3 (modA) Sit to Lying (QC): 3 (modA) Lying-Sitting on Side/Bed(QC): 3 (modA) Chair/Cmk-rd-Mltfp Xfer(QC): 3 (modA) PT Plan Treatment/Plan Treatment Plan: Continue Plan of Care Treatment Plan: Bed Mobility, Education, Functional Activity Rosy, Functional Strength, Gait, Safety, Therapeutic Exercise, Transfers Treatment Duration: Feb 07, 2021 Frequency: 6 times per week Estimated Hrs Per Day: .25 hour per day Patient and/or Family Agrees t: Yes Time/GCodes Time In: 1035 Time Out: 1046 Total Billed Treatment Time: 11 Total Billed Treatment 1 visit FA 11 min SUSANA SPENCE PT Feb 05, 2021 11:30
[2021-02-05] MEDS: VASOPRESSIN INJECTION 20 UNIT in NS (IVPB) 100 ML IV SCH ×2 (11:48→23:11)
[2021-02-05] MEDS: NOREPINEPHRINE 8 MG/250 ML 250 ML IV SCH ×2 (11:48→22:29)
--- NOTE | 2021-02-05 11:55 | Occ Therapy Progress Note ---
Therapy Progress Note Pt declined OT session due to nausea. Pt adamantly refused to participate stating he did not feel well. Reported to nrsg. Will see at next available time. 1 visit-refusal [phone] ZAK BOYD Feb 05, 2021 11:55
--- NOTE | 2021-02-05 14:17 | Progress Note ---
Subjective Subjective/Events-last exam Afebrile, states he is feeling a little better. Feels breathing is improved. Objective Exam Last Set of Vital Signs Vital Signs Date Time Temp Pulse Resp B/P (MAP) Pulse Ox O2 Delivery O2 Flow Rate FiO2 02/05/21 13:12 36.5 02/05/21 13:00 74 22 102/69 92 High Flow N/C 6.00 02/04/21 23:59 60 Capillary Refill : Less Than 3 Seconds I&O Intake and Output 02/05/21 00:00 Intake Total 3860 ml Output Total 5800 ml Balance -1940 ml Intake Oral 3860 ml Output Urine Total 5800 ml General: Alert, No Acute Distress Lungs: Clear to Auscultation, Normal Air Movement Heart: Other (irregularly irregular, tachycardic) Neuro: Normal Speech Psych/Mental Status: Mental Status NL Results/Procedures Lab Laboratory Tests 02/04/21 15:39: Glucometer 217H 02/04/21 20:14: Glucometer 204H 02/05/21 03:25: White Blood Count 15.4H, Red Blood Count 5.45, Hemoglobin 15.0, Hematocrit 49, Mean Corpuscular Volume 89, Mean Corpuscular Hemoglobin 28, Mean Corpuscular Hemoglobin Concent 31L, Red Cell Distribution Width 14.9H, Platelet Count 193, Mean Platelet Volume 11.4, Immature Granulocyte % (Auto) 1, Neutrophils (%) (Auto) 76H, Lymphocytes (%) (Auto) 12, Monocytes (%) (Auto) 10, Eosinophils (%) (Auto) 1, Basophils (%) (Auto) 0, Neutrophils # (Auto) 11.7H, Lymphocytes # (Auto) 1.9, Monocytes # (Auto) 1.6H, Eosinophils # (Auto) 0.1, Basophils # (Auto) 0.0, Immature Granulocyte # (Auto) 0.1, Sodium Level 138, Potassium Level 4.0, Chloride Level 98, Carbon Dioxide Level 32, Anion Gap 8, Blood Urea Nitrogen 27H, Creatinine 0.75, Estimat Glomerular Filtration Rate 106, BUN/Creatinine Ratio 36, Glucose Level 158H, Calcium Level 8.1L, Corrected Calcium 8.7, Phosphorus Level 1.8L, Magnesium Level 1.9, Total Bilirubin 2.3H, Aspartate Amino Transf (AST/SGOT) 52H, Alanine Aminotransferase (ALT/SGPT) 220H, Alkaline Phosphatase 65, Total Protein 5.5L, Albumin 3.2 02/05/21 11:12: Glucometer 258H Microbiology 01/25/21 Gram Stain - Final, Complete 01/25/21 Sputum Culture - Final, Complete Haemophilus influenza Usual upper respiratory andrew 01/25/21 Blood Culture - Final, Complete No growth 01/25/21 Urine Culture - Final, Complete NO GROWTH Radiology NAME: KAYA LAUREN [facility] REC#: [id number] PT STATUS: ADM IN : 1960 PHYSICIAN: FER VAZQUEZ MD ADMIT DATE: 01/25/21/ICU Signed Date of Exam:01/25/21 US VENOUS LOWER EXT KIMBERLY PROCEDURE: US Venous Lower Ext Kimberly. TECHNIQUE: Multiple real-time grayscale images were obtained over the lower extremities in various projections, bilaterally. Additional duplex Doppler and color Doppler images were also obtained. INDICATION: Lower extremity swelling and pain. COMPARISON: None. FINDINGS: Visualized deep and superficial venous system is patent. There is no DVT. IMPRESSION: Negative lower extremity venous Doppler. Dictated by: Dictated on workstation # [id number] Dict: 01/25/21 1513 Trans: 01/25/21 1546 [id number] Interpreted by: ALENA JACK Electronically signed by: ALENA JACK 01/25/21 1546 NAME: KAYA LAUREN [facility] REC#: [id number] PT STATUS: ADM IN : 1960 PHYSICIAN: FAIZA MURGUIA MD ADMIT DATE: 01/25/21/ICU Draft Date of Exam:01/26/21 CHEST 1 VIEW, AP/PA ONLY INDICATION: Respiratory distress Comparison with 01/25/2021 chest x-ray. FINDINGS: Portable chest again shows ET tube, NG tube and right central line in good position. Patchy bilateral infiltrates are again demonstrated without significant change. There is good aeration noted bilaterally. The heart is mildly enlarged. Probable small left basilar. Pulmonary vasculature again appears slightly prominent. IMPRESSION: 1. Support lines in good position. 2. The patchy bilateral infiltrates with prominent pulmonary vasculature appears essentially unchanged. Dictated on workstation # [id number] Dict: 01/26/21 1018 Trans: 01/26/21 1023 CV [id number] Interpreted by: TERA JOHNSON MD Electronically signed by: Assessment/Plan Assessment/Plan (1) Atrial fibrillation with RVR Status: Acute Assessment & Plan: Appreciate Cardiology recommendations, has been requiring cardizem drip, increasing PO meds as needed. (2) Acute and chronic respiratory failure with hypoxia Status: Acute Assessment & Plan: Initially requiring intubation, has been weaned down on support and is on 6 lpm today, baseline of 3 lpm at home. (3) Bilateral pneumonia Status: Acute Assessment & Plan: - Completed IV antibiotics for presumed PNA Qualifiers: Qualified Codes: J18.9 - Pneumonia, unspecified organism (4) COPD exacerbation Status: Acute Assessment & Plan: - Steroids (5) HTN (hypertension) Status: Chronic Qualifiers: Qualified Codes: I10 - Essential (primary) hypertension (6) Tobacco abuse Status: Chronic (7) Elevated d-dimer Status: Acute Assessment & Plan: Venous dopplers LE bilaterally negative, on apixaban. (8) Elevated LFTs Status: Acute Assessment & Plan: Liver US with normal liver, but bile duct, pancreas not well seen. Hep C neg. Bilirubin still trending up, consider CT abdomen if persistent. (9) DVT prophylaxis Status: Acute Assessment & Plan: Apixaban Clinical Quality Measures AMI/AHF: Ejection Fraction %: 55 TIM VELAZCO MD Feb 05, 2021 14:17
--- NOTE | 2021-02-05 15:45 | Progress Note - Cardiology ---
Cardiology SOAP Progress Note Subjective: No cp or syncope Shortness of breath and rapid heart rate with activity No n/v/d Objective: I&O/Vital Signs 02/05/21 02/05/21 02/05/21 02/05/21 04:00 04:00 04:00 05:00 Temp 36.6 Pulse 91 84 Resp 15 18 B/P (MAP) 110/76 105/67 Pulse Ox 92 94 93 O2 Delivery High Flow N/C Nasal Cannula High Flow N/C O2 Flow Rate 6.00 6.00 6.00 02/05/21 02/05/21 02/05/21 02/05/21 06:00 06:27 07:00 07:37 Pulse 108 96 117 Resp 28 13 B/P (MAP) 125/92 121/80 Pulse Ox 93 92 91 O2 Delivery High Flow N/C High Flow N/C High Flow N/C O2 Flow Rate 6.00 6.00 6.00 02/05/21 02/05/21 02/05/21 02/05/21 07:52 08:00 08:00 09:00 Temp 36.6 Pulse 106 86 Resp 8 23 B/P (MAP) 103/79 104/72 Pulse Ox 92 94 91 O2 Delivery High Flow N/C Nasal Cannula High Flow N/C O2 Flow Rate 6.00 6.00 6.00 02/05/21 02/05/21 02/05/21 02/05/21 09:05 10:00 11:00 11:14 Pulse 114 144 Resp 12 21 B/P (MAP) 102/55 113/87 Pulse Ox 91 92 91 O2 Delivery High Flow N/C High Flow N/C High Flow N/C High Flow N/C O2 Flow Rate 6.00 6.00 6.00 6.00 02/05/21 02/05/21 02/05/21 02/05/21 11:48 11:48 12:00 12:07 Pulse 144 144 92 Resp 20 B/P (MAP) 113/87 113/87 105/76 Pulse Ox 92 92 O2 Delivery High Flow N/C Nasal Cannula O2 Flow Rate 6.00 6.00 02/05/21 02/05/21 02/05/21 02/05/21 12:38 13:00 13:12 14:00 Temp 36.5 Pulse 90 74 71 Resp 22 20 B/P (MAP) 102/69 104/76 Pulse Ox 92 92 O2 Delivery High Flow N/C High Flow N/C O2 Flow Rate 6.00 6.00 02/05/21 15:00 Pulse 86 Resp 19 B/P (MAP) 124/94 Pulse Ox 92 O2 Delivery High Flow N/C O2 Flow Rate 6.00 02/04/21 23:59 Intake Total 2600 ml Output Total 2700 ml Balance -100 ml Weight (Pounds): 263 Weight (Ounces): 3.0 Weight (Calculated Kilograms): 119.670861 Constitutional: AAO x 3, other Respiratory: chest expansion is symmetric, chest is bilaterally symmetric, rhonchi (scattered), other (intubated) Cardiovascular: irregularly irregular, tachycardia Extremities: other (bilat pitting and non-pitting edema) Neurologic/Psychiatric: oriented x 3, other (moves all limbs equally) Skin: other (chronic thickening of the skin of the legs and chronic swelling of the legs (bilat)) Results/Procedures: Labs Laboratory Tests 02/04/21 20:14: Glucometer 204H 02/05/21 03:25: White Blood Count 15.4H, Red Blood Count 5.45, Hemoglobin 15.0, Hematocrit 49, Mean Corpuscular Volume 89, Mean Corpuscular Hemoglobin 28, Mean Corpuscular Hemoglobin Concent 31L, Red Cell Distribution Width 14.9H, Platelet Count 193, Mean Platelet Volume 11.4, Immature Granulocyte % (Auto) 1, Neutrophils (%) (Auto) 76H, Lymphocytes (%) (Auto) 12, Monocytes (%) (Auto) 10, Eosinophils (%) (Auto) 1, Basophils (%) (Auto) 0, Neutrophils # (Auto) 11.7H, Lymphocytes # (Auto) 1.9, Monocytes # (Auto) 1.6H, Eosinophils # (Auto) 0.1, Basophils # (Auto) 0.0, Immature Granulocyte # (Auto) 0.1, Sodium Level 138, Potassium Level 4.0, Chloride Level 98, Carbon Dioxide Level 32, Anion Gap 8, Blood Urea Nitrogen 27H, Creatinine 0.75, Estimat Glomerular Filtration Rate 106, BUN/Creatinine Ratio 36, Glucose Level 158H, Calcium Level 8.1L, Corrected Calcium 8.7, Phosphorus Level 1.8L, Magnesium Level 1.9, Total Bilirubin 2.3H, Aspartate Amino Transf (AST/SGOT) 52H, Alanine Aminotransferase (ALT/SGPT) 220H, Alkaline Phosphatase 65, Total Protein 5.5L, Albumin 3.2 02/05/21 11:12: Glucometer 258H Microbiology 01/25/21 Gram Stain - Final, Complete 01/25/21 Sputum Culture - Final, Complete Haemophilus influenza Usual upper respiratory andrew 01/25/21 Blood Culture - Final, Complete No growth 01/25/21 Urine Culture - Final, Complete NO GROWTH Laboratory Tests 02/04/21 03:57 02/05/21 03:25 A/P: Assessment: Pneumonia with resp failure requiring intubation, now extubated - Echo 01/26/21: LVEF 55-60%, mild to mod enlargement of LA P. A-fib/flutter - Typical atrial flutter ablation by Dr. Rankin on 08/24/2018 - Recurrent A Fib/Fl on 08/17/20 with RVR - OAC with Eliquis - Currently a-fib with RVR - not well controlled HTN - somewhat low BP Tobaccoism - cessation advised COPD Obesity Bilat LE swelling and chronic stasis dermatitis of the legs Plan: Long-acting diltiazem increased for better vent rate control - somewhat better - add Digoxin, d/t somewhat low BP that prevents us from further increasing BB Adjust diuretics as needed and as tolerated ICU and Hospitalist service is managing his acute resp failure Continue Eliquis for stroke prophylaxis Monitor lab closely Clinical Quality Measures AMI/AHF: Ejection Fraction %: 55 EULA COLLAZO MD FACP [facility] Feb 05, 2021 15:45
[2021-02-05] MEDS: dilTIAZem120 MG (CARDIZEM CD) CAP PO SCH (16:12)
[2021-02-05 21:21] LABS: ABG BASE EXCESS 4.7 MMOL/L (-2.5-2.5); ABG OXYGEN SATURATION 93 % (94-100); ABG PCO2 58 MMHG (35-45); ABG PO2 64 MMHG (79-93); ABG TCO2 32.1 MMOL/L (21.0-31.0)
[2021-02-05 21:28] LABS: ALLENS TEST YES-POS; VENTILATOR NO
[2021-02-05 21:29] LABS: PATIENT TEMP 36.7
[2021-02-05 21:30] LABS: ABG PH 7.33 (7.37-7.43)
[2021-02-06] MEDS ORDERED: ACETAMINOPHEN 325 MG TABLET PO ONE (00:45)
[2021-02-06] MEDS: RT-ALBUTEROL/IPRATROPIUM 3 ML (DUONEB) VIAL INH SCH ×6 (02:01→22:56)
[2021-02-06] MEDS ORDERED: CAMPHOR TOP PRN (03:00)
[2021-02-06] MEDS ORDERED: ACETAMINOPHEN 500 MG TAB (TYLENOL) PO PRN (03:00)
[2021-02-06] MEDS ORDERED: MENTHOL TOP PRN (03:00)
[2021-02-06] MEDS ORDERED: IBUPROFEN 800 MG (MOTRIN) TAB PO PRN (03:00)
[2021-02-06] MEDS ORDERED: BISACODYL 10 MG SUPP (DULCOLAX) PR ONE (03:30)
[2021-02-06 03:34] LABS: POTASSIUM 4.6 MMOL/L (3.6-5.0)
[2021-02-06 03:35] LABS: CALCIUM 8.8 MG/DL (8.5-10.1)
[2021-02-06 03:39] LABS: CREATININE SERUM 0.83 MG/DL (0.60-1.30)
[2021-02-06 03:44] LABS: BASOPHILS % (AUTO) 0 % (0-10); EOSINOPHILS % (AUTO) 0 % (0-10); HEMATOCRIT 52 % (40-54); HEMOGLOBIN 16.3 g/dL (13.3-17.7); LYMPHOCYTES # (AUTO) 1.3 10^3/uL (1.0-4.0); LYMPHOCYTES % (AUTO) 6 % (12-44); MEAN CORPUSCULAR HEMOGLOBIN 28 pg (25-34); MEAN CORPUSCULAR HGB CONC 31 g/dL (32-36); MEAN CORPUSCULAR VOLUME 88 fL (80-99); MEAN PLATELET VOLUME 11.6 fL (9.0-12.2); MONOCYTES # (AUTO) 1.4 10^3/uL (0.0-1.0); MONOCYTES % (AUTO) 7 % (0-12); NEUTROPHILS # (AUTO) 18.3 10^3/uL (1.8-7.8); NEUTROPHILS % (AUTO) 87 % (42-75); PLATELET COUNT 212 10^3/uL (130-400); WHITE BLOOD COUNT 21.1 10^3/uL (4.3-11.0)
[2021-02-06] MEDS: MAGNESIUM 1 GM/100 ML IVPB 100 ML IV SCH (04:13)
[2021-02-06] MEDS: KCL 20 MEQ TAB (K-DUR) PO SCH (04:13)
[2021-02-06] MEDS: POTASSIUM CL 10MEQ/50ML IVPB 50 ML IV SCH (04:13)
[2021-02-06 04:17] LABS: BAND NEUTROPHILS 1 %; LYMPHOCYTES % (MANUAL) 5 %; MONOCYTES % (MANUAL) 9 %; NEUTROPHILS % (MANUAL) 85 %
[2021-02-06] MEDS: inSUlin ASPART (NovoLOG) 1 UNIT/0.01 ML (CHARGE PER UNIT) SC SCH ×4 (04:55→21:27)
[2021-02-06] MEDS: FUROSEMIDE 40 MG/4 ML INJ (LASIX) IVP SCH ×2 (06:10→16:55)
[2021-02-06] MEDS: predniSONE 20 MG TAB PO SCH (06:11)
[2021-02-06] MEDS: KCL 10 MEQ TAB (MICRO K) PO SCH ×2 (07:44→16:55)
[2021-02-06] MEDS: meTOproloL SUCCINATE 50 MG (TOPROL XL) TAB PO SCH ×2 (07:45→20:20)
[2021-02-06] MEDS: APIXABAN 5 MG (ELIQUIS) TABLET PO SCH ×2 (07:45→20:20)
[2021-02-06] MEDS: DIGOXIN 0.25 MG (LANOXIN) TAB PO SCH (07:45)
[2021-02-06] MEDS: PANTOPRAZOLE 40 MG (PROTONIX) VIAL IV SCH (07:46)
[2021-02-06] MEDS: SENNA W/DOCUSATE (SENOKOT S) TABLET PO SCH ×2 (07:54→20:19)
[2021-02-06] MEDS: polyethylene glycoL POWDER 17 GM (MIRALAX) PACK PO SCH ×2 (07:54→20:19)
[2021-02-06] MEDS: NOREPINEPHRINE 8 MG/250 ML 250 ML IV SCH (07:54)
[2021-02-06] MEDS: dilTIAZem DRIP PRE-MIX 125 ML IV SCH (07:55)
[2021-02-06] MEDS: MICONAZOLE 2% POWDER (DESENEX AF) 90 GM TOP SCH ×2 (07:55→20:21)
[2021-02-06] MEDS ORDERED: MENTHOL TP PRN (08:00)
[2021-02-06] MEDS ORDERED: CAMPHOR TP PRN (08:00)
--- NOTE | 2021-02-06 10:22 | Progress Note - Cardiology ---
Cardiology SOAP Progress Note Subjective: Sitting up in recliner at the bedside He feels his breathing is improving, but not yet back to baseline No c/o CP or palpitations at the bedside Objective: I&O/Vital Signs 02/06/21 02/06/21 02/07/21 02/07/21 22:56 23:59 01:04 02:29 Temp 36.4 Pulse 84 80 Resp 18 B/P (MAP) 107/60 Pulse Ox 96 93 92 O2 Delivery High Flow N/C High Flow N/C High Flow N/C O2 Flow Rate 5.00 6.00 5.00 02/07/21 02/07/21 02/07/21 02/07/21 04:00 06:45 07:00 08:17 Temp 36.6 37.0 Pulse 57 114 91 Resp 18 18 B/P (MAP) 116/56 114/58 Pulse Ox 96 89 93 O2 Delivery High Flow N/C High Flow N/C High Flow N/C O2 Flow Rate 6.00 5.00 5.00 02/07/21 00:00 Intake Total 670 ml Output Total 1300 ml Balance -630 ml Weight (Pounds): 263 Weight (Ounces): 3.0 Weight (Calculated Kilograms): 119.103255 Constitutional: AAO x 3, other Respiratory: chest expansion is symmetric, chest is bilaterally symmetric, other (good air entry) Cardiovascular: irregularly irregular, tachycardia Gastrointestional: No tender; soft, audible bowel sounds Extremities: other (mild to mod LE swelling) Neurologic/Psychiatric: oriented x 3, other (moves all limbs equally) Skin: other (chronic thickening of the skin of the legs and chronic swelling of the legs (bilat)) Results/Procedures: Labs Laboratory Tests 02/06/21 10:39: Glucometer 236H 02/06/21 12:22: Total Bilirubin 2.3H, Direct Bilirubin 1.2H, Indirect Bilirubin 1.1, Aspartate Amino Transf (AST/SGOT) 52H, Alanine Aminotransferase (ALT/SGPT) 234H, Alkaline Phosphatase 102, Total Protein 6.1L, Albumin 3.6 02/06/21 15:17: Glucometer 256H 02/06/21 20:35: Glucometer 306H 02/07/21 05:41: Glucometer 177H 02/07/21 05:47: Sodium Level 136, Potassium Level 4.0, Chloride Level 95L, Carbon Dioxide Level 31, Anion Gap 10, Blood Urea Nitrogen 29H, Creatinine 0.73, Estimat Glomerular Filtration Rate 109, BUN/Creatinine Ratio 40, Glucose Level 167H, Calcium Level 8.3L, Corrected Calcium 8.9, Magnesium Level 1.8, Total Bilirubin 1.6H, Aspartate Amino Transf (AST/SGOT) 26, Alanine Aminotransferase (ALT/SGPT) 167H, Alkaline Phosphatase 93, Total Protein 5.7L, Albumin 3.3, Digoxin Level < 0.30L Microbiology 01/25/21 Gram Stain - Final, Complete 01/25/21 Sputum Culture - Final, Complete Haemophilus influenza Usual upper respiratory andrew 01/25/21 Blood Culture - Final, Complete No growth 01/25/21 Urine Culture - Final, Complete NO GROWTH A/P: Assessment: Pneumonia with resp failure requiring intubation, now extubated - Echo 01/26/21: LVEF 55-60%, mild to mod enlargement of LA P. A-fib/flutter - Typical atrial flutter ablation by Dr. Rankin on 08/24/2018 - Recurrent A Fib/Fl on 08/17/20 with RVR - OAC with Eliquis - Currently a-fib with RVR - not well controlled HTN - somewhat low BP Tobaccoism - cessation advised COPD Obesity Bilat LE swelling and chronic stasis dermatitis of the legs Plan: Continue Long-acting diltiazem increased for better vent rate control - somewhat better - add Digoxin, d/t somewhat low BP that prevents us from further increasing BB Adjust diuretics as needed and as tolerated ICU and Hospitalist service is managing his acute resp failure Continue Eliquis for stroke prophylaxis Monitor lab closely Clinical Quality Measures AMI/AHF: Ejection Fraction %: 55 CASANDRA GERARDO Feb 06, 2021 10:22
--- NOTE | 2021-02-06 10:52 | Tele-ICU Progress Note ---
Subjective Date Seen by a Provider: Feb 06, 2021 Time Seen by a Provider: 10:52 Sepsis Event Evaluation Height, Weight, BMI Height: 6'2.00" Weight: 263lbs. 3.0oz. 119.703588kd; 40.12 BMI Method:Stated Exam Exam Patient acknowledged, consented, and participated in this virtual visit which was conducted using real time audio/video Vital Signs Date Time Temp Pulse Resp B/P (MAP) Pulse Ox O2 Delivery O2 Flow Rate FiO2 02/06/21 10:31 96 High Flow N/C 6.00 02/06/21 07:54 130 123/80 02/06/21 07:52 93 High Flow N/C 6.00 02/06/21 07:52 36.3 02/06/21 07:24 92 High Flow N/C 6.00 02/06/21 07:00 92 02/06/21 06:15 130 17 123/80 93 High Flow N/C 6.00 02/06/21 05:00 128 26 120/80 91 High Flow N/C 6.00 02/06/21 04:10 92 High Flow N/C 6.00 02/06/21 04:00 141 17 127/92 90 High Flow N/C 6.00 02/06/21 03:00 96 14 147/89 93 High Flow N/C 6.00 02/06/21 02:38 36.4 High Flow N/C 6.00 02/06/21 02:01 93 High Flow N/C 6.00 02/06/21 02:00 105 34 116/84 93 High Flow N/C 6.00 02/06/21 01:20 124 20 110/80 93 High Flow N/C 6.00 02/06/21 01:00 100 02/06/21 00:07 High Flow N/C 6.00 02/06/21 00:00 64 18 113/78 94 NIV Bilevel 60.00 02/05/21 23:32 94 NIV Bilevel 60 02/05/21 23:32 36.5 NIV Bilevel 60.00 02/05/21 23:00 71 20 96/68 92 High Flow N/C 6.00 02/05/21 22:59 High Flow N/C 6.00 02/05/21 22:37 93 High Flow N/C 6.00 02/05/21 22:00 79 22 100/70 90 High Flow N/C 6.00 02/05/21 21:08 73 16 90/66 91 High Flow N/C 6.00 02/05/21 20:44 91 Nasal Cannula 6.00 02/05/21 20:14 124 22 99/72 91 High Flow N/C 6.00 02/05/21 19:45 36.3 02/05/21 19:00 High Flow N/C 6.00 02/05/21 19:00 103 02/05/21 19:00 103 22 107/94 93 High Flow N/C 6.00 02/05/21 18:51 93 High Flow N/C 6.00 02/05/21 18:00 88 10 124/80 95 High Flow N/C 6.00 02/05/21 17:00 88 24 145/87 94 High Flow N/C 6.00 02/05/21 16:00 73 14 128/76 93 High Flow N/C 6.00 02/05/21 15:54 92 Nasal Cannula 6.00 02/05/21 15:49 92 High Flow N/C 6.00 02/05/21 15:00 86 19 124/94 92 High Flow N/C 6.00 02/05/21 14:00 71 20 104/76 92 High Flow N/C 6.00 02/05/21 13:12 36.5 02/05/21 13:00 74 22 102/69 92 High Flow N/C 6.00 02/05/21 12:38 90 02/05/21 12:07 92 Nasal Cannula 6.00 02/05/21 12:00 92 20 105/76 92 High Flow N/C 6.00 02/05/21 11:48 144 113/87 02/05/21 11:48 144 113/87 02/05/21 11:14 91 High Flow N/C 6.00 02/05/21 11:00 144 21 113/87 92 High Flow N/C 6.00 I & O 02/06/21 07:00 Intake Total 1750 ml Output Total 4275 ml Balance -2525 ml Height & Weight Height: 6'2.00" Weight: 263lbs. 3.0oz. 119.844016wk; 40.12 BMI Method:Stated General Appearance: No Apparent Distress, Obese HEENT: PERRL/EOMI, Normal ENT Inspection Neck: Non Tender, Supple Respiratory: Lungs Clear, Normal Breath Sounds, No Respiratory Distress Cardiovascular: No Murmur, Irregularly Irregular, Tachycardia Capillary Refill: Less Than 3 Seconds Gastrointestinal: non tender, soft Extremity: Normal Inspection, Non Tender, No Pedal Edema Neurologic/Psychiatric: Alert, Oriented x3, Normal Mood/Affect, Motor Weakness Skin: Normal Color, Warm/Dry Lymphatic: No Adenopathy Results Lab Laboratory Tests 02/05/21 03:25 02/06/21 03:15 Assessment/Plan Assessment/Plan Tele-ICU Physician , Progress Note ) Available chart/ vitals / labs / Images reviewed Video assessment done using teleICU camera, rest of exam as per RN Discussed with RN , EXAM PER RN Events overnight : tachycardia Afebrile I/O =neg 2700 Drips: cardizem OFF Pressors: , hemodynamically stable Consultants: jesika Hospital course: 01-25: INTUBATED Unresponsive - Pneumonia - A Fib RVR (Now SR) - Intubated 01/28 - AC 60 % 20 450 + 5 , POS 1800ml - 3 days positive 5L- diuresis attempted - 01/29 - AC 50 % 20 450 + 5 after 3L DIURESIS, changed to DIAMOX 01/30- EXTUBATED 01/31 - back to afib RVR , NC + BIPAP ( CARA , poor comliance 02/01 - 12L NC , BIPAP 16/8 60 % night 02/02 - NC 10 L , on cardizem gtt 02/02 -US liver -no evidence for cholelithiasis or acute cholecystitis, The common bile duct was not well visualized 02/03 - at night compliant with BIPAP NS 6 l , OFF cardizem GTT 02/04 - 6L o2 02/06 - WBC ?21 A/P Acute resp failure , PNA and AECOPD - Intubated 01/25 ( unresponsive with hypercarbia , PNA ) -01/30- EXTUBATED - ont BIPAP 16/8 60 % night ( ? known CARA - poor conpliance WILL CONT NOCTURNAL NIPPV NOW -weaning steroids PNA ( NEG COVID PCR , NEG flu - sputm cx 01/25 - Hflu - in cefepime 01/25- 05/02 - possible aspiration 10/5 - follow LEukocytosis -02/03 - keep rising 10 oth and 11th - ? steroid related , FOLLOW OFF ABX AECOPD - IV steroids - decrease 01/30 SM 40 q12 - change to PO 02/03 - wean down - nebs A fib RVR on presentation - converted to sinus 01/25 - >> back to a fib RVR 01/26 - cards follow , Currently a-fib with RVR - iv dilt GTT OFF - PO as per cards - AC with eliquis -ECHO 01/26/21: LVEF 55-60%, mild to mod enlargement of LA Elevated LFT 01/30 - persistent - reglan changed to PRN , other meds ? - not improving > 3 d --> US liver 02/03 -no evidence for cholelithiasis or acute cholecystitis, The common bile duct was not well visualized Chronic hypercarbic rersp failure with COPD - 02/06 after a day of NC 6 l - ABG AT EVENING TIME TO ASSESS BASELINE mild resp acidosis , NOT FULLY COMPENSATED - on NIPPV at night at home, suspected poor compliance - ? CARA vs OHS - tolerates bipap here Elevated ddimer on admission - MARCOS - US venous NEG 01/25 - already on AC , low sup for PE - will follow on Eliquis Hematuria 02/03 - better today , follow Lines : RIGHT IJ 01/25 (Central Line Necessity Reviewed) Cash: 01/25 O/30 Nutrition: ON HOLD , RESUME AFTER US LIVER Analgesia: Anxiety/ delirium VTE Prophylaxis: eliquis Stress Ulcer Prophylaxis: PPI PT - initiated Plans in collaboration with bedside consultants and IM MDs. Discussed with RN to reach out if any questions or concerns A total of 25 minutes of critical care time was devoted to this patient today, required to treat and/or prevent further deterioration of critical care condition ( as above) . FER VAZQUEZ MD Feb 06, 2021 10:52
--- NOTE | 2021-02-06 11:13 | Physical Therapy Daily Note ---
PT Daily Note-Current Subjective Patient agrees to exercises. Currently in recliner via sit to stand lift. Mental Status Patient Orientation: Normal For Age Attachments: Oxygen, Cash Catheter Transfers SCALE: Activities may be completed with or without assistive devices. 9-Lvefqoyqeh-kjwdnyh completes the activity by him/herself with no assistance from a helper. 5-Set-up or Clean-up Assistance-helper sets up or cleans up; patient completes activity. [place] assists only prior to or following the activity. 4-Supervision or Touching Assistance-helper provides verbal cues and/or touching/steadying and/or contact guard assistance as patient completes activity. Assistance may be provided throughout the activity or intermittently. 3-Partial/Moderate Assistance-helper does LESS THAN HALF the effort. [place] lifts, holds or supports trunk or limbs, but provides less than half the effort. 2-Substantial/Maximal Assistance-helper does MORE THAN HALF the effort. [place] lifts or holds trunk or limbs and provides more than half the effort. 5-Eyzfstzfg-lepagr does ALL the effort. Patient does none of the effort to complete the activity. Or, the assistance of 2 or more helpers is required for the patient to complete the activity. If activity was not attempted, code reason: 7-Patient Refused. 9-Not Applicable-not attempted and the patient did not perform the activity before the current illness, exacerbation or injury. 10-Not Attempted due to Environmental Limitations-(lack of equipment, weather restraints, etc.). 88-Not Attempted due to Medical Conditions or Safety Concerns. Exercises Seated Therapy Exercises: Ankle pumps, Long arc quads, Hip flexion, Hip abd/add, Glut set Seated Reps: 12 (x 2 sets bilaterally) Assessment Patient tolerates minimal activity and remains up in recliner. Increase activity as tolerated by patient. PT Longterm Goals Computer Network Support Specialist Goals PT Longterm Goals Time Frame: Feb 07, 2021 Roll Left & Right (QC): 3 (modA) Sit to Lying (QC): 3 (modA) Lying-Sitting on Side/Bed(QC): 3 (modA) Chair/Kny-ig-Qjtrl Xfer(QC): 3 (modA) PT Plan Treatment/Plan Treatment Plan: Continue Plan of Care Treatment Plan: Bed Mobility, Education, Functional Activity Rosy, Functional Strength, Gait, Safety, Therapeutic Exercise, Transfers Treatment Duration: Feb 07, 2021 Frequency: 6 times per week Estimated Hrs Per Day: .25 hour per day Patient and/or Family Agrees t: Yes Time/GCodes Time In: 1037 Time Out: 1051 Total Billed Treatment Time: 14 Total Billed Treatment 1 visit EX 14 min SUSANA SPENCE PT Feb 06, 2021 11:13
--- NOTE | 2021-02-06 11:34 | Progress Note ---
Subjective Subjective/Events-last exam Afebrile, states he was very uncomfortable last night when they tried to get him to change positions in bed. He is anxious to go home as soon as possible. He feels his breathing is doing pretty well. Objective Exam Last Set of Vital Signs Vital Signs Date Time Temp Pulse Resp B/P (MAP) Pulse Ox O2 Delivery O2 Flow Rate FiO2 02/06/21 10:31 96 High Flow N/C 6.00 02/06/21 09:00 128 22 125/70 02/06/21 07:52 36.3 02/05/21 23:32 60 Capillary Refill : Less Than 3 Seconds I&O Intake and Output 02/06/21 00:00 Intake Total 2000 ml Output Total 4375 ml Balance -2375 ml Intake Oral 2000 ml Output Urine Total 4375 ml General: Alert, No Acute Distress Lungs: Clear to Auscultation Heart: Regular Rate, No Murmurs Abdomen: Normal Bowel Sounds, Soft Extremities: Other (erythematous, peeling legs, trace pitting edema) Neuro: Normal Speech Psych/Mental Status: Mood NL Results/Procedures Lab Laboratory Tests 02/05/21 16:04: Glucometer 192H 02/05/21 20:12: Glucometer 248H 02/05/21 21:15: Blood Gas Puncture Site LEFT RADIAL, Blood Gas Patient Temperature 36.7, Arterial Blood pH 7.33*L, Arterial Blood Partial Pressure CO2 58H, Arterial Blood Partial Pressure O2 64L, Arterial Blood HCO3 30H, Arterial Blood Total CO2 32.1H, Arterial Blood Oxygen Saturation 93L, Arterial Blood Base Excess 4.7H, Jair Test YES-POS, Blood Gas Ventilator Setting NO, Blood Gas Inspired Oxygen 91% 02/06/21 03:15: White Blood Count 21.1H, Red Blood Count 5.93H, Hemoglobin 16.3, Hematocrit 52, Mean Corpuscular Volume 88, Mean Corpuscular Hemoglobin 28, Mean Corpuscular Hem oglobin Concent 31L, Red Cell Distribution Width 14.3, Platelet Count 212, Mean Platelet Volume 11.6, Immature Granulocyte % (Auto) 1, Neutrophils (%) (Auto) 87H, Lymphocytes (%) (Auto) 6L, Monocytes (%) (Auto) 7, Eosinophils (%) (Auto) 0, Basophils (%) (Auto) 0, Neutrophils # (Auto) 18.3H, Lymphocytes # (Auto) 1.3, Monocytes # (Auto) 1.4H, Eosinophils # (Auto) 0.0, Basophils # (Auto) 0.0, Immature Granulocyte # (Auto) 0.1, Neutrophils % (Manual) 85, Lymphocytes % (Manual) 5, Monocytes % (Manual) 9, Band Neutrophils 1, Sodium Level 135, Pot assium Level 4.6, Chloride Level 95L, Carbon Dioxide Level 29, Anion Gap 11, Blood Urea Nitrogen 32H, Creatinine 0.83, Estimat Glomerular Filtration Rate 94, BUN/Creatinine Ratio 39, Glucose Level 185H, Calcium Level 8.8, Magnesium Level 2.0 02/06/21 10:39: Glucometer 236H Microbiology 01/25/21 Gram Stain - Final, Complete 01/25/21 Sputum Culture - Final, Complete Haemophilus influenza Usual upper respiratory andrew 01/25/21 Blood Culture - Final, Complete No growth 01/25/21 Urine Culture - Final, Complete NO GROWTH Radiology NAME: KAYA LAUREN [facility] REC#: [id number] PT STATUS: ADM IN : 1960 PHYSICIAN: FER VAZQUEZ MD ADMIT DATE: 01/25/21/ICU Signed Date of Exam:01/25/21 US VENOUS LOWER EXT KIMBERLY PROCEDURE: US Venous Lower Ext Kimberly. TECHNIQUE: Multiple real-time grayscale images were obtained over the lower extremities in various projections, bilaterally. Additional duplex Doppler and color Doppler images were also obtained. INDICATION: Lower extremity swelling and pain. COMPARISON: None. FINDINGS: Visualized deep and superficial venous system is patent. There is no DVT. IMPRESSION: Negative lower extremity venous Doppler. Dictated by: Dictated on workstation # [id number] Dict: 01/25/21 1513 Trans: 01/25/21 1546 [id number] Interpreted by: ALENA JACK Electronically signed by: ALENA JACK 01/25/21 1546 NAME: KAYA LAUREN [facility] REC#: [id number] PT STATUS: ADM IN : 1960 PHYSICIAN: FAIZA MURGUIA MD ADMIT DATE: 01/25/21/ICU Draft Date of Exam:01/26/21 CHEST 1 VIEW, AP/PA ONLY INDICATION: Respiratory distress Comparison with 01/25/2021 chest x-ray. FINDINGS: Portable chest again shows ET tube, NG tube and right central line in good position. Patchy bilateral infiltrates are again demonstrated without significant change. There is good aeration noted bilaterally. The heart is mildly enlarged. Probable small left basilar. Pulmonary vasculature again appears slightly prominent. IMPRESSION: 1. Support lines in good position. 2. The patchy bilateral infiltrates with prominent pulmonary vasculature appears essentially unchanged. Dictated on workstation # [id number] Dict: 01/26/21 1018 Trans: 01/26/21 1023 CVB [id number] Interpreted by: TERA JOHNSON MD Electronically signed by: Assessment/Plan Assessment/Plan (1) Atrial fibrillation with RVR Status: Acute Assessment & Plan: Appreciate Cardiology recommendations, has been requiring cardizem drip, increasing PO meds as needed. 02/06 transferring to floor, per Cardiology started on digoxin as unable to increase cardizem further due to BP. (2) Acute and chronic respiratory failure with hypoxia Status: Acute Assessment & Plan: Initially requiring intubation, has been weaned down on support and is on 6 lpm today, baseline of 3 lpm at home. (3) Bilateral pneumonia Status: Acute Assessment & Plan: - Completed IV antibiotics for presumed PNA Qualifiers: Qualified Codes: J18.9 - Pneumonia, unspecified organism (4) COPD exacerbation Status: Acute Assessment & Plan: - Solumedrol from 01/28-02/03, prednisone 50 mg daily 02/04 and 02/05, now on prednisone 40 mg daily (5) HTN (hypertension) Status: Chronic Qualifiers: Qualified Codes: I10 - Essential (primary) hypertension (6) Tobacco abuse Status: Chronic (7) Elevated d-dimer Status: Acute Assessment & Plan: Venous dopplers LE bilaterally negative, on apixaban. (8) Elevated LFTs Status: Acute Assessment & Plan: Liver US with normal liver, but bile duct, pancreas not well seen. Hep C neg. Bilirubin still trending up 02/05, consider CT abdomen if persistent. Repeat LFT pending. (9) DVT prophylaxis Status: Acute Assessment & Plan: Apixaban Clinical Quality Measures AMI/AHF: Ejection Fraction %: 55 TIM VELAZCO MD Feb 06, 2021 11:34
[2021-02-06 12:46] LABS: ALBUMIN 3.6 GM/DL (3.2-4.5)
[2021-02-06 12:48] LABS: TOTAL PROTEIN 6.1 GM/DL (6.4-8.2)
[2021-02-06 12:50] LABS: BILIRUBIN,TOTAL 2.3 MG/DL (0.1-1.0)
[2021-02-06 12:54] LABS: BILIRUBIN,DIRECT 1.2 MG/DL (0.0-0.3); BILIRUBIN,INDIRECT 1.1 MG/DL
--- NOTE | 2021-02-06 13:30 | Diagnostic Imaging Report ---
INDICATION: Abdominal distention. TECHNIQUE: Single view of the abdomen 9:15 AM CORRELATION STUDY: 01/30/2021 FINDINGS: There is limited inclusion of the abdomen in the study. A presented gastric tube is not visualized on the current study. Either been removed or above the area imaged. There has been developed rather marked gaseous distention of stomach. There is mild gaseous distention of the colon. IMPRESSION: 1. Previous gastric tube is not visualized. 2. Development of rather marked gaseous distention of stomach. There is also some asymmetric gas distention of colon. Features may be reflective of rather pronounced ileus. Possibility of a gastric outlet obstruction however is not excluded and if indicated, additional views would be recommended to include the entire abdomen. Dictated by: Dictated on workstation # [id number]
--- NOTE | 2021-02-06 13:59 | Progress Note - Cardiology ---
Cardiology SOAP Progress Note Subjective: No cp or palp or syncope Shortness of breath is better No focal weakness Gen malaise and weakness present Objective: I&O/Vital Signs 02/06/21 02/06/21 02/06/21 02/06/21 02:00 02:01 02:38 03:00 Temp 36.4 Pulse 105 96 Resp 34 14 B/P (MAP) 116/84 147/89 Pulse Ox 93 93 93 O2 Delivery High Flow N/C High Flow N/C High Flow N/C High Flow N/C O2 Flow Rate 6.00 6.00 6.00 6.00 02/06/21 02/06/21 02/06/21 02/06/21 04:00 04:10 05:00 06:15 Pulse 141 128 130 Resp 17 26 17 B/P (MAP) 127/92 120/80 123/80 Pulse Ox 90 92 91 93 O2 Delivery High Flow N/C High Flow N/C High Flow N/C High Flow N/C O2 Flow Rate 6.00 6.00 6.00 6.00 02/06/21 02/06/21 02/06/21 02/06/21 07:00 07:00 07:24 07:52 Temp 36.3 Pulse 126 92 Resp 16 B/P (MAP) 115/74 Pulse Ox 94 92 O2 Delivery High Flow N/C High Flow N/C O2 Flow Rate 6.00 6.00 02/06/21 02/06/21 02/06/21 02/06/21 07:52 07:54 08:00 08:00 Pulse 130 100 112 Resp 18 18 B/P (MAP) 123/80 125/70 113/87 Pulse Ox 93 92 92 O2 Delivery High Flow N/C High Flow N/C High Flow N/C O2 Flow Rate 6.00 6.00 6.00 02/06/21 02/06/21 09:00 10:31 Pulse 128 Resp 22 B/P (MAP) 125/70 Pulse Ox 92 96 O2 Delivery High Flow N/C High Flow N/C O2 Flow Rate 6.00 6.00 02/06/21 00:00 Intake Total 1100 ml Output Total 1975 ml Balance -875 ml Weight (Pounds): 263 Weight (Ounces): 3.0 Weight (Calculated Kilograms): 119.711056 Constitutional: AAO x 3, other Respiratory: chest expansion is symmetric, chest is bilaterally symmetric, other (good air entry) Cardiovascular: irregularly irregular, tachycardia Gastrointestional: No tender; soft, audible bowel sounds Extremities: other (mild to mod LE swelling) Neurologic/Psychiatric: oriented x 3, other (moves all limbs equally) Skin: other (chronic thickening of the skin of the legs and chronic swelling of the legs (bilat)) Results/Procedures: Labs Laboratory Tests 02/05/21 16:04: Glucometer 192H 02/05/21 20:12: Glucometer 248H 02/05/21 21:15: Blood Gas Puncture Site LEFT RADIAL, Blood Gas Patient Temperature 36.7, Arterial Blood pH 7.33*L, Arterial Blood Partial Pressure CO2 58H, Arterial Blood Partial Pressure O2 64L, Arterial Blood HCO3 30H, Arterial Blood Total CO2 32.1H, Arterial Blood Oxygen Saturation 93L, Arterial Blood Base Excess 4.7H, Jair Test YES-POS, Blood Gas Ventilator Setting NO, Blood Gas Inspired Oxygen 91% 02/06/21 03:15: White Blood Count 21.1H, Red Blood Count 5.93H, Hemoglobin 16.3, Hematocrit 52, Mean Corpuscular Volume 88, Mean Corpuscular Hemoglobin 28, Mean Corpuscular Hemoglobin Concent 31L, Red Cell Distribution Width 14.3, Platelet Count 212, Mean Platelet Volume 11.6, Immature Granulocyte % (Auto) 1, Neutrophils (%) (Auto) 87H, Lymphocytes (%) (Auto) 6L, Monocytes (%) (Auto) 7, Eosinophils (%) (Auto) 0, Basophils (%) (Auto) 0, Neutrophils # (Auto) 18.3H, Lymphocytes # (Auto) 1.3, Monocytes # (Auto) 1.4H, Eosinophils # (Auto) 0.0, Basophils # (Auto) 0.0, Immature Granulocyte # (Auto) 0.1, Neutrophils % (Manual) 85, Lymphocytes % (Manual) 5, Monocytes % (Manual) 9, Band Neutrophils 1, Sodium Level 135, Potassium Level 4.6, Chloride Level 95L, Carbon Dioxide Level 29, Anion Gap 11, Blood Urea Nitrogen 32H, Creatinine 0.83, Estimat Glomerular Filtration Rate 94, BUN/Creatinine Ratio 39, Glucose Level 185H, Calcium Level 8.8, Magnesium Level 2.0 02/06/21 10:39: Glucometer 236H 02/06/21 12:22: Total Bilirubin 2.3H, Direct Bilirubin 1.2H, Indirect Bilirubin 1.1, Aspartate Amino Transf (AST/SGOT) 52H, Alanine Aminotransferase (ALT/SGPT) 234H, Alkaline Phosphatase 102, Total Protein 6.1L, Albumin 3.6 Microbiology 01/25/21 Gram Stain - Final, Complete 01/25/21 Sputum Culture - Final, Complete Haemophilus influenza Usual upper respiratory andrew 01/25/21 Blood Culture - Final, Complete No growth 01/25/21 Urine Culture - Final, Complete NO GROWTH Laboratory Tests 02/05/21 03:25 02/06/21 03:15 A/P: Assessment: Pneumonia with resp failure requiring intubation, now extubated - Echo 01/26/21: LVEF 55-60%, mild to mod enlargement of LA Lecuocytosis: pneumonia and/or steroids - managed by the [facility]. A-fib/flutter - Typical atrial flutter ablation by Dr. Rankin on 08/24/2018 - Recurrent A Fib/Fl on 08/17/20 with RVR - OAC with Eliquis - Currently a-fib with RVR - now better controlled HTN - somewhat low BP Tobaccoism - cessation advised COPD Obesity Bilat LE swelling and chronic stasis dermatitis of the legs Plan: Rate is better controlled on current regimen of bb, ccb, and dig. Continue to monitor Adjust diuretics as needed and as tolerated ICU and Hospitalist service is managing his acute resp failure Continue Eliquis for stroke prophylaxis Monitor lab closely Clinical Quality Measures AMI/AHF: Ejection Fraction %: 55 EULA COLLAZO MD FACP [facility] Feb 06, 2021 13:59
--- NOTE | 2021-02-06 14:09 | Occupational Ther Daily Note ---
OT Current Status-Daily Note Subjective Pt alert, sitting in recliner. Pt agrees to therapy. Pt c/o pain though does not rate. Mental Status/Objective Patient Orientation: Person, Place, Time, Situation ADL-Treatment Therapy Code Descriptions/Definitions Functional [place] Measure: 0=Not Assessed/NA 4=Minimal Assistance 1=Total Assistance 5=Supervision or Setup 2=Maximal Assistance 6=Modified [place] 3=Moderate Assistance 7=Complete IndependenceSCALE: Activities may be completed with or without assistive devices. 2-Lcikpdflpw-jetvupi completes the activity by him/herself with no assistance from a helper. 5-Set-up or Clean-up Assistance-helper sets up or cleans up; patient completes activity. [place] assists only prior to or following the activity. 4-Supervision or Touching Assistance-helper provides verbal cues and/or touching/steadying and/or contact guard assistance as patient completes activity. Assistance may be provided throughout the activity or intermittently. 3-Partial/Moderate Assistance-helper does LESS THAN HALF the effort. [place] lifts, holds or supports trunk or limbs, but provides less than half the effort. 2-Substantial/Maximal Assistance-helper does MORE THAN HALF the effort. [place] lifts or holds trunk or limbs and provides more than half the effort. 5-Shjfcawdf-ayybqp does ALL the effort. Patient does none of the effort to complete the activity. Or, the assistance of 2 or more helpers is required for the patient to complete the activity. If activity was not attempted, code reason: 7-Patient Refused. 9-Not Applicable-not attempted and the patient did not perform the activity before the current illness, exacerbation or injury. 10-Not Attempted due to Environmental Limitations-(lack of equipment, weather restraints, etc.). 88-Not Attempted due to Medical Conditions or Safety Concerns. Other Treatment Pt is independent with eating. Pt requests to go back to bed. Nrsg and MELENDEZ using sit to stand lift transferred pt back to bed Pt requires assistance to lift B LE into bed then assist to position self in bed. After session, pt lying in bed with call light/phone in reach. All needs met in room. OT Chief Of Staff Goals Longterm Goals Time Frame: Feb 16, 2021 Eating (QC): 6 Oral Hygiene (QC): 6 Toileting Hygiene (QC): 4 Shower/Bathe Self (QC): 3 Upper Body Dressing (QC): 4 Lower Body Dressing (QC): 3 1=Demonstrate adherence to instructed precautions during ADL tasks. 2=Patient will verbalize/demonstrate understanding of assistive devices/modifications for ADL. 3=Patient will improve strength/tolerance for activity to enable patient to perform ADL's. OT Education/Plan Problem List/Assessment Assessment: Decreased Activ Tolerance, Decreased UE Strength, Dependent Transfers, Impaired Self-Care Skills, Restricted Funct UE ROM Discharge Recommendations Plan/Recommendations: Continue POC Treatment Plan/Plan of Care Patient would benefit from OT for education, treatment and training to promote independence in ADL's, mobility, safety and/or upper extremity function for ADL's. Plan of Care: ADL Retraining, Functional Mobility, UE Funct Exercise/Act Treatment Duration: Feb 16, 2021 Frequency: 5 times per week Estimated Hrs Per Day: .25 hour per day Rehab Potential: Guarded Time/GCodes Start Time: 13:30 Stop Time: 13:45 Total Time Billed (hr/min): 15 Billed Treatment Time 1 visit-FA 1 (15 min) ZAK BOYD Feb 06, 2021 14:09
[2021-02-06] MEDS: dilTIAZem120 MG (CARDIZEM CD) CAP PO SCH (16:55)
[2021-02-07] MEDS: RT-ALBUTEROL/IPRATROPIUM 3 ML (DUONEB) VIAL INH SCH ×5 (02:29→22:02)
[2021-02-07] MEDS: inSUlin ASPART (NovoLOG) 1 UNIT/0.01 ML (CHARGE PER UNIT) SC SCH ×4 (06:00→20:30)
[2021-02-07] MEDS: FUROSEMIDE 40 MG/4 ML INJ (LASIX) IVP SCH ×2 (06:00→16:54)
[2021-02-07] MEDS: predniSONE 20 MG TAB PO SCH (06:00)
[2021-02-07 06:32] LABS: ALANINE AMINOTRANSFERASE 167 U/L (0-55); ALBUMIN 3.3 GM/DL (3.2-4.5); ALKALINE PHOSPHATASE 93 U/L (40-136); BILIRUBIN,TOTAL 1.6 MG/DL (0.1-1.0); BUN/CREATININE RATIO 40; CALCIUM 8.3 MG/DL (8.5-10.1); CARBON DIOXIDE 31 MMOL/L (21-32); CHLORIDE 95 MMOL/L (98-107); CREATININE SERUM 0.73 MG/DL (0.60-1.30); GFR ESTIMATED 109; GLUCOSE 167 MG/DL (70-105); MAGNESIUM 1.8 MG/DL (1.6-2.4); SODIUM 136 MMOL/L (135-145); TOTAL PROTEIN 5.7 GM/DL (6.4-8.2)
[2021-02-07] MEDS: SENNA W/DOCUSATE (SENOKOT S) TABLET PO SCH ×2 (08:52→20:31)
[2021-02-07] MEDS: meTOproloL SUCCINATE 50 MG (TOPROL XL) TAB PO SCH ×2 (08:52→20:33)
[2021-02-07] MEDS: APIXABAN 5 MG (ELIQUIS) TABLET PO SCH ×2 (08:52→20:30)
[2021-02-07] MEDS: polyethylene glycoL POWDER 17 GM (MIRALAX) PACK PO SCH ×2 (08:52→20:31)
[2021-02-07] MEDS: KCL 10 MEQ TAB (MICRO K) PO SCH ×2 (08:52→16:54)
[2021-02-07] MEDS: DIGOXIN 0.25 MG (LANOXIN) TAB PO SCH (08:52)
[2021-02-07] MEDS: MICONAZOLE 2% POWDER (DESENEX AF) 90 GM TOP SCH ×2 (08:53→20:31)
--- NOTE | 2021-02-07 09:06 | Pulmonary Progress Note ---
Subjective Date Seen by a Provider: Feb 07, 2021 Time Seen by a Provider: 09:01 Subjective/Events-last exam pt with severe copd with acute and chronic respiratory failure transfere from ICU after extubation. also had afib with rvr now controlled with oral meds, currently on o2 6L n/c. feeling better and eager to go home. No cough, or wheezing . no fever Review of Systems ROS PER ATTENDING PHYSICIAN Sepsis Event Evaluation Height, Weight, BMI Height: 6'2.00" Weight: 263lbs. 3.0oz. 119.291634sy; 40.12 BMI Method:Stated Exam Exam Patient acknowledged, consented, and participated in this virtual visit which was conducted using real time audio/video Vital Signs Date Time Temp Pulse Resp B/P (MAP) Pulse Ox O2 Delivery O2 Flow Rate FiO2 02/07/21 08:17 37.0 91 18 114/58 93 High Flow N/C 5.00 02/07/21 07:00 114 02/07/21 06:45 89 High Flow N/C 5.00 02/07/21 04:00 36.6 57 18 116/56 96 High Flow N/C 6.00 02/07/21 02:29 92 High Flow N/C 5.00 02/07/21 01:04 80 02/06/21 23:59 36.4 84 18 107/60 93 High Flow N/C 6.00 02/06/21 22:56 96 High Flow N/C 5.00 02/06/21 20:25 High Flow N/C 5.00 02/06/21 19:30 36.6 81 20 93/60 93 High Flow N/C 6.00 02/06/21 19:00 117 02/06/21 18:59 95 High Flow N/C 5.00 02/06/21 15:18 36.7 80 20 107/71 95 High Flow N/C 6.00 02/06/21 14:36 95 High Flow N/C 6.00 02/06/21 13:00 103 02/06/21 10:31 96 High Flow N/C 6.00 I & O 02/07/21 07:00 Intake Total 1370 ml Output Total 2450 ml Balance -1080 ml Height & Weight Height: 6'2.00" Weight: 263lbs. 3.0oz. 119.594120wy; 40.12 BMI Method:Stated General Appearance: No Apparent Distress, Obese HEENT: PERRL/EOMI, Normal ENT Inspection Neck: Non Tender, Supple Respiratory: Lungs Clear (zain. decreased breath sounds but no rales or rhonchi), Normal Breath Sounds, No Respiratory Distress Cardiovascular: No Murmur, Irregularly Irregular Capillary Refill: Less Than 3 Seconds Gastrointestinal: non tender, soft Extremity: Normal Inspection, Non Tender, No Pedal Edema Neurologic/Psychiatric: Alert, Oriented x3, Normal Mood/Affect, Motor Weakness Skin: Normal Color, Warm/Dry Lymphatic: No Adenopathy Results Lab Laboratory Tests 02/06/21 03:15 02/07/21 05:47 Meds reviewed Assessment/Plan Assessment/Plan 1. severe copd with exacerbation causing acute and chr. respiratory failure improving and currently on o2 at 5L hfnc. 2. Afib with rvr currently rate controlled. 3. deconditioning. Recommendations 1. wean prednisone as written. 2. Antiarrythmics per cardiology. 3.Apixaban per cardiology. 4. continue home oxygen. 5. home in 1-2 days if ok with attending physician. 6. suggest out patient Pulmonary Rehab Critical Care: Critically Ill Patient Time spent with patient (mins): 25 FAIZA MURGUIA MD Feb 07, 2021 09:06
--- NOTE | 2021-02-07 09:52 | Progress Note - Cardiology ---
Cardiology SOAP Progress Note Subjective: Sitting up in recliner at the bedside Denies any SOB, CP or palpitations Objective: I&O/Vital Signs 02/07/21 02/07/21 02/07/21 02/07/21 06:45 07:00 08:00 08:17 Temp 37.0 Pulse 114 91 Resp 18 B/P (MAP) 114/58 Pulse Ox 89 93 O2 Delivery High Flow N/C High Flow N/C High Flow N/C O2 Flow Rate 5.00 5.00 5.00 02/07/21 02/07/21 02/07/21 02/07/21 10:17 11:29 13:00 14:59 Temp 36.7 Pulse 103 84 Resp 20 B/P (MAP) 115/58 Pulse Ox 93 92 93 O2 Delivery High Flow N/C High Flow N/C High Flow N/C O2 Flow Rate 5.00 5.00 5.00 02/07/21 15:53 Temp 37.2 Pulse 82 Resp 22 B/P (MAP) 120/74 Pulse Ox 92 O2 Delivery High Flow N/C O2 Flow Rate 5.00 02/07/21 00:00 Intake Total 670 ml Output Total 1300 ml Balance -630 ml Weight (Pounds): 263 Weight (Ounces): 3.0 Weight (Calculated Kilograms): 119.172460 Constitutional: AAO x 3, other Respiratory: chest expansion is symmetric, chest is bilaterally symmetric, other (good air entry) Cardiovascular: irregularly irregular, tachycardia Gastrointestional: No tender; soft, audible bowel sounds Extremities: other (mild to mod LE swelling) Neurologic/Psychiatric: oriented x 3, other (moves all limbs equally) Skin: other (chronic thickening of the skin of the legs and chronic swelling of the legs (bilat)) Results/Procedures: Labs Laboratory Tests 02/06/21 20:35: Glucometer 306H 02/07/21 05:41: Glucometer 177H 02/07/21 05:47: Sodium Level 136, Potassium Level 4.0, Chloride Level 95L, Carbon Dioxide Level 31, Anion Gap 10, Blood Urea Nitrogen 29H, Creatinine 0.73, Estimat Glomerular Filtration Rate 109, BUN/Creatinine Ratio 40, Glucose Level 167H, Calcium Level 8.3L, Corrected Calcium 8.9, Magnesium Level 1.8, Total Bilirubin 1.6H, Aspartate Amino Transf (AST/SGOT) 26, Alanine Aminotransferase (ALT/SGPT) 167H, Alkaline Phosphatase 93, Total Protein 5.7L, Albumin 3.3, Digoxin Level < 0.30L 02/07/21 10:57: Glucometer 269H 02/07/21 15:33: Glucometer 205H Microbiology 01/25/21 Gram Stain - Final, Complete 01/25/21 Sputum Culture - Final, Complete Haemophilus influenza Usual upper respiratory andrew 01/25/21 Blood Culture - Final, Complete No growth 01/25/21 Urine Culture - Final, Complete NO GROWTH A/P: Assessment: Pneumonia with resp failure requiring intubation, now extubated - Echo 01/26/21: LVEF 55-60%, mild to mod enlargement of LA Lecuocytosis: pneumonia and/or steroids - managed by the [facility] Zack P. A-fib/flutter - Typical atrial flutter ablation by Dr. Rankin on 08/24/2018 - Recurrent A Fib/Fl on 08/17/20 with RVR - OAC with Eliquis - Currently a-fib with RVR - now better controlled HTN - somewhat low BP Tobaccoism - cessation advised COPD Obesity Bilat LE swelling and chronic stasis dermatitis of the legs Plan: Rate is better controlled on current regimen of bb, ccb, and dig. Continue to monitor Adjust diuretics as needed and as tolerated ICU and Hospitalist service is managing his acute resp failure Continue Eliquis for stroke prophylaxis Monitor lab closely Clinical Quality Measures AMI/AHF: Ejection Fraction %: 55 CASANDRA GERARDO Feb 07, 2021 09:52
--- NOTE | 2021-02-07 10:24 | Occupational Ther Daily Note ---
OT Current Status-Daily Note Subjective Pt alert, sitting in recliner. Pt agrees to therapy. No c/o pain at this time. Mental Status/Objective Patient Orientation: Person, Place, Time, Situation ADL-Treatment Therapy Code Descriptions/Definitions Functional Swisher Measure: 0=Not Assessed/NA 4=Minimal Assistance 1=Total Assistance 5=Supervision or Setup 2=Maximal Assistance 6=Modified Swisher 3=Moderate Assistance 7=Complete IndependenceSCALE: Activities may be completed with or without assistive devices. 6-Flngobdrzp-owztmib completes the activity by him/herself with no assistance from a helper. 5-Set-up or Clean-up Assistance-helper sets up or cleans up; patient completes activity. [place] assists only prior to or following the activity. 4-Supervision or Touching Assistance-helper provides verbal cues and/or touchi ng/steadying and/or contact guard assistance as patient completes activity. Assistance may be provided throughout the activity or intermittently. 3-Partial/Moderate Assistance-helper does LESS THAN HALF the effort. Organ lifts, holds or supports trunk or limbs, but provides less than half the effort. 2-Substantial/Maximal Assistance-helper does MORE THAN HALF the effort. Organ lifts or holds trunk or limbs and provides more than half the effort. 5-Sxouwhjje-ahjsxm does ALL the effort. Patient does none of the effort to complete the activity. Or, the assistance of 2 or more helpers is required for the patient to complete the activity. If activity was not attempted, code reason: 7-Patient Refused. 9-Not Applicable-not attempted and the patient did not perform the activity before the current illness, exacerbation or injury. 10-Not Attempted due to Environmental Limitations-(lack of equipment, weather restraints, etc.). 88-Not Attempted due to Medical Conditions or Safety Concerns. Other Treatment Pt completed B UE exercises against gravity in all planes to increase strength and activity tolerance for daily functional tasks. Skilled instruction for correct technique required. Pt able to complete 3 sets 10 reps of 4 B UE exerc ises. Pt required recovery breaks between each set. After therapy, pt sitting in recliner with call light/phone in reach. All needs met in room. Education OT Patient Education: Exercise program Teaching Recipient: Patient Teaching Methods: Demonstration, Discussion Response to Teaching: Verbalize Understanding, Return Demonstration, Reinforcement Needed OT Shelter Goals Shelter Goals Time Frame: Feb 16, 2021 Eating (QC): 6 Oral Hygiene (QC): 6 Toileting Hygiene (QC): 4 Shower/Bathe Self (QC): 3 Upper Body Dressing (QC): 4 Lower Body Dressing (QC): 3 1=Demonstrate adherence to instructed precautions during ADL tasks. 2=Patient will verbalize/demonstrate understanding of assistive devices/modifications for ADL. 3=Patient will improve strength/tolerance for activity to enable patient to perform ADL's. OT Education/Plan Problem List/Assessment Assessment: Decreased Activ Tolerance, Decreased UE Strength, Dependent Transfers, Impaired Self-Care Skills, Restricted Funct UE ROM Discharge Recommendations Plan/Recommendations: Continue POC Treatment Plan/Plan of Care Patient would benefit from OT for education, treatment and training to promote independence in ADL's, mobility, safety and/or upper extremity function for ADL's. Plan of Care: ADL Retraining, Functional Mobility, UE Funct Exercise/Act Treatment Duration: Feb 16, 2021 Frequency: 5 times per week Estimated Hrs Per Day: .25 hour per day Rehab Potential: Guarded Time/GCodes Start Time: 08:45 Stop Time: 09:00 Total Time Billed (hr/min): 15 Billed Treatment Time 1 visit-EX 1 (15 min) ZAK BOYD Feb 07, 2021 10:24
[2021-02-07] MEDS: PANTOPRAZOLE 40 MG (PROTONIX) VIAL IV SCH (11:17)
--- NOTE | 2021-02-07 12:23 | Progress Note - Cardiology ---
Cardiology SOAP Progress Note Subjective: No cp or palp or syncope or shortness of breath Request more liberalization of diet No n/v/d Some gen weakness, improving Objective: I&O/Vital Signs 02/07/21 02/07/21 02/07/21 02/07/21 01:04 02:29 04:00 06:45 Temp 36.6 Pulse 80 57 Resp 18 B/P (MAP) 116/56 Pulse Ox 92 96 89 O2 Delivery High Flow N/C High Flow N/C High Flow N/C O2 Flow Rate 5.00 6.00 5.00 02/07/21 02/07/21 02/07/21 02/07/21 07:00 08:00 08:17 10:17 Temp 37.0 Pulse 114 91 Resp 18 B/P (MAP) 114/58 Pulse Ox 93 93 O2 Delivery High Flow N/C High Flow N/C High Flow N/C O2 Flow Rate 5.00 5.00 5.00 02/07/21 11:29 Temp 36.7 Pulse 103 Resp 20 B/P (MAP) 115/58 Pulse Ox 92 O2 Delivery High Flow N/C O2 Flow Rate 5.00 02/06/21 23:59 Intake Total 670 ml Output Total 1300 ml Balance -630 ml Weight (Pounds): 263 Weight (Ounces): 3.0 Weight (Calculated Kilograms): 119.746470 Constitutional: AAO x 3, other Respiratory: chest expansion is symmetric, chest is bilaterally symmetric, ot her (good air entry) Cardiovascular: irregularly irregular, tachycardia Gastrointestional: No tender; soft, audible bowel sounds Extremities: other (mild to mod LE swelling) Neurologic/Psychiatric: oriented x 3, other (moves all limbs equally) Skin: other (chronic thickening of the skin of the legs and chronic swelling of the legs (bilat)) Results/Procedures: Labs Laboratory Tests 02/06/21 12:22: Total Bilirubin 2.3H, Direct Bilirubin 1.2H, Indirect Bilirubin 1.1, Aspartate Amino Transf (AST/SGOT) 52H, Alanine Aminotransferase (ALT/SGPT) 234H, Alkaline Phosphatase 102, Total Protein 6.1L, Albumin 3.6 02/06/21 15:17: Glucometer 256H 02/06/21 20:35: Glucometer 306H 02/07/21 05:41: Glucometer 177H 02/07/21 05:47: Sodium Level 136, Potassium Level 4.0, Chloride Level 95L, Carbon Dioxide Level 31, Anion Gap 10, Blood Urea Nitrogen 29H, Creatinine 0.73, Estimat Glomerular Filtration Rate 109, BUN/Creatinine Ratio 40, Glucose Level 167H, Calcium Level 8.3L, Corrected Calcium 8.9, Magnesium Level 1.8, Total Bilirubin 1.6H, Aspartate Amino Transf (AST/SGOT) 26, Alanine Aminotransferase (ALT/SGPT) 167H, Alkaline Phosphatase 93, Total Protein 5.7L, Albumin 3.3, Digoxin Level < 0.30L 02/07/21 10:57: Glucometer 269H Microbiology 01/25/21 Gram Stain - Final, Complete 01/25/21 Sputum Culture - Final, Complete Haemophilus influenza Usual upper respiratory andrew 01/25/21 Blood Culture - Final, Complete No growth 01/25/21 Urine Culture - Final, Complete NO GROWTH Laboratory Tests 02/06/21 03:15 02/07/21 05:47 A/P: Assessment: Pneumonia with resp failure requiring intubation, now extubated - Echo 01/26/21: LVEF 55-60%, mild to mod enlargement of LA Lecuocytosis: pneumonia and/or steroids - managed by the Med Svce P. A-fib/flutter - Typical atrial flutter ablation by Dr. Rankin on 08/24/2018 - Recurrent A Fib/Fl on 08/17/20 with RVR - OAC with Eliquis - Currently a-fib with RVR - now better controlled HTN - somewhat low BP Tobaccoism - cessation advised COPD Obesity Bilat LE swelling and chronic stasis dermatitis of the legs Plan: Rate is better controlled on current regimen of bb, ccb, and dig. Continue to monitor Adjust diuretics as needed and as tolerated ICU and Hospitalist service is managing his acute resp failure Continue Eliquis for stroke prophylaxis Ok for d/c from cardiac standpoint. Outpt f/u advised Clinical Quality Measures AMI/AHF: Ejection Fraction %: 55 EULA COLLAZO MD FACP [facility] CCDS Feb 07, 2021 12:22
--- NOTE | 2021-02-07 13:17 | Physical Therapy Daily Note ---
PT Daily Note-Current Subjective Pt in bed w/ nursing and family in room upon arrival and agrees to PT. Transfers SCALE: Activities may be completed with or without assistive devices. 4-Itxdlgevsm-mroeyiw completes the activity by him/herself with no assistance from a helper. 5-Set-up or Clean-up Assistance-helper sets up or cleans up; patient completes activity. [place] assists only prior to or following the activity. 4-Supervision or Touching Assistance-helper provides verbal cues and/or touching/steadying and/or contact guard assistance as patient completes a ctivity. Assistance may be provided throughout the activity or intermittently. 3-Partial/Moderate Assistance-helper does LESS THAN HALF the effort. [place] lifts, holds or supports trunk or limbs, but provides less than half the effort. 2-Substantial/Maximal Assistance-helper does MORE THAN HALF the effort. [place] lifts or holds trunk or limbs and provides more than half the effort. 7-Rrfvswxoi-vmlznk does ALL the effort. Patient does none of the effort to complete the activity. Or, the assistance of 2 or more helpers is required for the patient to complete the activity. If activity was not attempted, code reason: 7-Patient Refused. 9-Not Applicable-not attempted and the patient did not perform the activity before the current illness, exacerbation or injury. 10-Not Attempted due to Environmental Limitations-(lack of equipment, weather restraints, etc.). 88-Not Attempted due to Medical Conditions or Safety Concerns. Roll Left & Right (QC): 4 Sit to Lying (QC): 3 Sit to Stand (QC): 1 Chair/Auf-du-Bypbs Xfer(QC): 1 Exercises Supine Ex: Rolling, Scooting Treatments Pt mid transfer w/ sit to stand lift and nursing in room upon arrival. Once pt is EOB, pt instructed to lay down. Pt able to bring torso down, but unable to advance B LE into bed. Pt instructed in bridging to adjust position of midsection in the bed, and pt rolls from L to R to had bed pad adjusted. Pt instructed in scooting, pt scoots to HOB w/ hand railings on bed and B LE pushing up. Pt remains in bed w/ nursing and family in room all needs met, call light in hand. Assessment Current Status: Fair Progress Pt limited by weakness. Requires encouragement for tx, and frequently takes rest breaks. PT Firewall Engineer Goals Firewall Engineer Goals PT Shelter Goals Time Frame: Feb 07, 2021 Roll Left & Right (QC): 3 (modA) Sit to Lying (QC): 3 (modA) Lying-Sitting on Side/Bed(QC): 3 (modA) Chair/Hhy-kx-Apckc Xfer(QC): 3 (modA) PT Plan Treatment/Plan Treatment Plan: Continue Plan of Care Treatment Plan: Bed Mobility, Education, Functional Activity Rosy, Functional Strength, Gait, Safety, Therapeutic Exercise, Transfers Treatment Duration: Feb 07, 2021 Frequency: 6 times per week Estimated Hrs Per Day: .25 hour per day Patient and/or Family Agrees t: Yes Time/GCodes Time In: 1201 Time Out: 1210 Total Billed Treatment Time: 9 Total Billed Treatment [id number] SYDNEY MACHINIST OUTSIDE Feb 07, 2021 13:17
--- NOTE | 2021-02-07 14:50 | Progress Note ---
Subjective Subjective/Events-last exam Afebrile, no acute events. Wants to go home, but is still having significant mobility difficulty and is on high flow nasal cannula. Objective Exam Last Set of Vital Signs Vital Signs Date Time Temp Pulse Resp B/P (MAP) Pulse Ox O2 Delivery O2 Flow Rate FiO2 02/07/21 13:00 84 02/07/21 11:29 36.7 20 115/58 92 High Flow N/C 5.00 02/05/21 23:32 60 Capillary Refill : Less Than 3 Seconds I&O Intake and Output 02/07/21 00:00 Intake Total 1570 ml Output Total 2700 ml Balance -1130 ml Intake Oral 1570 ml Output Urine Total 2700 ml # Bowel Movements 3 General: Alert, No Acute Distress Lungs: Other (rales at bases bilaterally) Heart: Other (irregularly irregular) Extremities: Other (erythematous swollen legs with peeling) Neuro: Normal Speech Psych/Mental Status: Mood NL Results/Procedures Lab Laboratory Tests 02/06/21 15:17: Glucometer 256H 02/06/21 20:35: Glucometer 306H 02/07/21 05:41: Glucometer 177H 02/07/21 05:47: Sodium Level 136, Potassium Level 4.0, Chloride Level 95L, Carbon Dioxide Level 31, Anion Gap 10, Blood Urea Nitrogen 29H, Creatinine 0.73, Estimat Glomerular Filtration Rate 109, BUN/Creatinine Ratio 40, Glucose Level 167H, Calcium Level 8.3L, Corrected Calcium 8.9, Magnesium Level 1.8, Total Bilirubin 1.6H, Aspartate Amino Transf (AST/SGOT) 26, Alanine Aminotransferase (ALT/SGPT) 167H, Alkaline Phosphatase 93, Total Protein 5.7L, Albumin 3.3, Digoxin Level < 0.30L 02/07/21 10:57: Glucometer 269H Microbiology 01/25/21 Gram Stain - Final, Complete 01/25/21 Sputum Culture - Final, Complete Haemophilus influenza Usual upper respiratory andrew 01/25/21 Blood Culture - Final, Complete No growth 01/25/21 Urine Culture - Final, Complete NO GROWTH Radiology NAME: KAYA LAUREN [facility] REC#: [id number] PT STATUS: ADM IN : 1960 PHYSICIAN: FER VAZQUEZ MD ADMIT DATE: 01/25/21/ICU Signed Date of Exam:01/25/21 US VENOUS LOWER EXT KIMBERLY PROCEDURE: US Venous Lower Ext Kimberly. TECHNIQUE: Multiple real-time grayscale images were obtained over the lower extremities in various projections, bilaterally. Additional duplex Doppler and color Doppler images were also obtained. INDICATION: Lower extremity swelling and pain. COMPARISON: None. FINDINGS: Visualized deep and superficial venous system is patent. There is no DVT. IMPRESSION: Negative lower extremity venous Doppler. Dictated by: Dictated on workstation # [id number] Dict: 01/25/21 1513 Trans: 01/25/21 1546 [id number] Interpreted by: ALENA JACK Electronically signed by: ALENA JACK 01/25/21 1546 NAME: KAYA LAUREN [facility] REC#: [id number] PT STATUS: ADM IN : 1960 PHYSICIAN: FAIZA MURGUIA MD ADMIT DATE: 01/25/21/ICU Draft Date of Exam:01/26/21 CHEST 1 VIEW, AP/PA ONLY INDICATION: Respiratory distress Comparison with 01/25/2021 chest x-ray. FINDINGS: Portable chest again shows ET tube, NG tube and right central line in good position. Patchy bilateral infiltrates are again demonstrated without significant change. There is good aeration noted bilaterally. The heart is mildly enlarged. Probable small left basilar. Pulmonary vasculature again appears slightly prominent. IMPRESSION: 1. Support lines in good position. 2. The patchy bilateral infiltrates with prominent pulmonary vasculature appears essentially unchanged. Dictated on workstation # [id number] Dict: 01/26/21 1018 Trans: 01/26/21 1023 [id number] Interpreted by: TERA JOHNSON MD Electronically signed by: Assessment/Plan Assessment/Plan (1) Atrial fibrillation with RVR Status: Acute Assessment & Plan: Appreciate Cardiology recommendations, has been requiring cardizem drip, increasing PO meds as needed. 02/06 transferring to floor, per Cardiology started on digoxin as unable to increase cardizem further due to BP. 02/07 overall improved rate control, on anticoagulation, okay per Cardiology for d/c from cardiac standpoint. (2) Acute and chronic respiratory failure with hypoxia Status: Acute Assessment & Plan: Initially requiring intubation, has been weaned down on support and is on 6 lpm today, baseline of 3 lpm at home. 02/07 on 5 lpm requesting d/c, will have RT do home O2 qualification to see if he can function on safe amount of oxygen for home (3) Bilateral pneumonia Status: Acute Assessment & Plan: - Completed IV antibiotics for presumed PNA Qualifiers: Qualified Codes: J18.9 - Pneumonia, unspecified organism (4) COPD exacerbation Status: Acute Assessment & Plan: - Solumedrol from 01/28-02/03, prednisone 50 mg daily 02/04 and 02/05, now on prednisone 40 mg daily (5) HTN (hypertension) Status: Chronic Qualifiers: Qualified Codes: I10 - Essential (primary) hypertension (6) Tobacco abuse Status: Chronic (7) Elevated d-dimer Status: Acute Assessment & Plan: Venous dopplers LE bilaterally negative, on apixaban. (8) Elevated LFTs Status: Acute Assessment & Plan: Liver US with normal liver, but bile duct, pancreas not well seen. Hep C neg. Bilirubin still trending up 02/05, consider CT abdomen if persistent. Repeat LFT pending. 02/07 trended down (9) Debility Assessment & Plan: Unable to transfer today, difficulty with getting legs into bed. Will continue PT, he wants to go home, but his physical functioning does not appear safe for home d/c today. (10) DVT prophylaxis Status: Acute Assessment & Plan: Apixaban Clinical Quality Measures AMI/AHF: Ejection Fraction %: 55 TIM VELAZCO MD Feb 07, 2021 14:50
[2021-02-07] MEDS: dilTIAZem120 MG (CARDIZEM CD) CAP PO SCH (16:54)
[2021-02-08] MEDS: RT-ALBUTEROL/IPRATROPIUM 3 ML (DUONEB) VIAL INH SCH ×5 (02:01→18:18)
[2021-02-08] MEDS: inSUlin ASPART (NovoLOG) 1 UNIT/0.01 ML (CHARGE PER UNIT) SC SCH ×3 (05:22→16:38)
[2021-02-08] MEDS: predniSONE 20 MG TAB PO SCH (06:19)
[2021-02-08] MEDS: FUROSEMIDE 40 MG/4 ML INJ (LASIX) IVP SCH ×2 (06:19→16:38)
[2021-02-08] MEDS: KCL 10 MEQ TAB (MICRO K) PO SCH ×2 (08:37→16:38)
[2021-02-08] MEDS: meTOproloL SUCCINATE 50 MG (TOPROL XL) TAB PO SCH (08:37)
[2021-02-08] MEDS: PANTOPRAZOLE 40 MG (PROTONIX) VIAL IV SCH (08:37)
[2021-02-08] MEDS: DIGOXIN 0.25 MG (LANOXIN) TAB PO SCH (08:37)
[2021-02-08] MEDS: SENNA W/DOCUSATE (SENOKOT S) TABLET PO SCH (08:38)
[2021-02-08] MEDS: APIXABAN 5 MG (ELIQUIS) TABLET PO SCH (08:38)
[2021-02-08] MEDS: polyethylene glycoL POWDER 17 GM (MIRALAX) PACK PO SCH (08:38)
[2021-02-08] MEDS: MICONAZOLE 2% POWDER (DESENEX AF) 90 GM TOP SCH (09:22)
--- NOTE | 2021-02-08 09:31 | Progress Note - Cardiology ---
Cardiology SOAP Progress Note Subjective: No cp or palp or syncope No significant leg discomfort No focal weakness Chronic numbness of the R foot and lower R leg, unchanged No n/v/d Objective: I&O/Vital Signs 02/07/21 02/08/21 02/08/21 02/08/21 22:02 00:05 01:00 02:01 Temp 36.7 Pulse 91 104 Resp 20 B/P (MAP) 110/65 Pulse Ox 93 96 95 O2 Delivery High Flow N/C High Flow N/C High Flow N/C O2 Flow Rate 5.00 6.00 5.00 02/08/21 02/08/21 02/08/21 02/08/21 04:11 06:33 06:51 06:54 Temp 36.7 Pulse 81 82 Resp 24 B/P (MAP) 110/62 Pulse Ox 97 96 O2 Delivery High Flow N/C High Flow N/C High Flow N/C O2 Flow Rate 6.00 5.00 3.00 02/08/21 02/08/21 08:00 09:22 Temp 36.4 Pulse 66 Resp 20 B/P (MAP) 124/77 Pulse Ox 93 O2 Delivery Nasal Cannula High Flow N/C O2 Flow Rate 3.00 3.00 02/08/21 00:00 Intake Total 1420 ml Output Total 3575 ml Balance -2155 ml Weight (Pounds): 263 Weight (Ounces): 3.0 Weight (Calculated Kilograms): 119.212272 Constitutional: AAO x 3, other Respiratory: chest expansion is symmetric, chest is bilaterally symmetric, other (good air entry) Cardiovascular: irregularly irregular, tachycardia Gastrointestional: No tender; soft, audible bowel sounds Extremities: other (mild to mod LE swelling) Neurologic/Psychiatric: oriented x 3, other (moves all limbs equally) Skin: other (chronic thickening of the skin of the legs and chronic swelling of the legs (bilat)) Results/Procedures: Labs Laboratory Tests 02/07/21 10:57: Glucometer 269H 02/07/21 15:33: Glucometer 205H 02/07/21 20:24: Glucometer 225H 02/08/21 05:20: Glucometer 189H Microbiology 01/25/21 Gram Stain - Final, Complete 01/25/21 Sputum Culture - Final, Complete Haemophilus influenza Usual upper respiratory andrew 01/25/21 Blood Culture - Final, Complete No growth 01/25/21 Urine Culture - Final, Complete NO GROWTH Laboratory Tests 02/07/21 05:47 A/P: Assessment: Pneumonia with resp failure requiring intubation, now extubated - Echo 01/26/21: LVEF 55-60%, mild to mod enlargement of LA Lecuocytosis: pneumonia and/or steroids - managed by the Med Zack P. A-fib/flutter - Typical atrial flutter ablation by Dr. Rankin on 08/24/2018 - Recurrent A Fib/Fl on 08/17/20 with RVR - OAC with Eliquis - Currently a-fib with RVR - now better controlled HTN - somewhat low BP Tobaccoism - cessation advised COPD Obesity Bilat LE swelling and chronic stasis dermatitis of the legs Plan: Rate is better controlled on current regimen of bb, ccb, and dig. Continue to monitor Adjust diuretics as needed and as tolerated Hospitalist service is managing his acute resp failure Continue Eliquis for stroke prophylaxis Ok for d/c from cardiac standpoint. Outpt f/u advised Clinical Quality Measures AMI/AHF: Ejection Fraction %: 55 EULA COLLAZO MD FACP [facility] CCDS Feb 08, 2021 09:31
--- NOTE | 2021-02-08 09:34 | Pulmonary Progress Note ---
Subjective Date Seen by a Provider: Feb 08, 2021 Time Seen by a Provider: 09:33 Subjective/Events-last exam Video visit made and discussed with patient. he states that he is feeling better interms of breathing. but he is very weak needing to assistance for standing and walking. No wheezing or significant cough. Review of Systems ROS PER ATTENDING PHYSICIAN Sepsis Event Evaluation Height, Weight, BMI Height: 6'2.00" Weight: 263lbs. 3.0oz. 119.226701so; 40.12 BMI Method:Stated Exam Exam Patient acknowledged, consented, and participated in this virtual visit which was conducted using real time audio/video Vital Signs Date Time Temp Pulse Resp B/P (MAP) Pulse Ox O2 Delivery O2 Flow Rate FiO2 02/08/21 09:22 High Flow N/C 3.00 02/08/21 08:00 36.4 66 20 124/77 93 Nasal Cannula 3.00 02/08/21 06:54 High Flow N/C 3.00 02/08/21 06:51 96 High Flow N/C 5.00 02/08/21 06:33 82 02/08/21 04:11 36.7 81 24 110/62 97 High Flow N/C 6.00 02/08/21 02:01 95 High Flow N/C 5.00 02/08/21 01:00 104 02/08/21 00:05 36.7 91 20 110/65 96 High Flow N/C 6.00 02/07/21 22:02 93 High Flow N/C 5.00 02/07/21 20:35 High Flow N/C 5.00 02/07/21 20:00 36.7 76 18 98/55 97 High Flow N/C 5.00 02/07/21 19:00 145 02/07/21 15:53 37.2 82 22 120/74 92 High Flow N/C 5.00 02/07/21 14:59 93 High Flow N/C 5.00 02/07/21 13:00 84 02/07/21 11:29 36.7 103 20 115/58 92 High Flow N/C 5.00 02/07/21 10:17 93 High Flow N/C 5.00 I & O 02/08/21 07:00 Intake Total 1770 ml Output Total 3875 ml Balance -2105 ml Height & Weight Height: 6'2.00" Weight: 263lbs. 3.0oz. 119.306730li; 40.12 BMI Method:Stated General Appearance: No Apparent Distress, Obese HEENT: PERRL/EOMI, Normal ENT Inspection Neck: Non Tender, Supple Respiratory: Lungs Clear (zain. decreased breath sounds but no rales or rhonchi), Normal Breath Sounds, No Respiratory Distress Cardiovascular: No Murmur, Irregularly Irregular Capillary Refill: Less Than 3 Seconds Gastrointestinal: non tender, soft Extremity: Normal Inspection, Non Tender, No Pedal Edema Neurologic/Psychiatric: Alert, Oriented x3, Normal Mood/Affect, Motor Weakness Skin: Normal Color, Warm/Dry Lymphatic: No Adenopathy Results Lab Laboratory Tests 02/07/21 05:47 Assessment/Plan Assessment/Plan 1. severe copd with exacerbation causing acute and chr. respiratory failure improving and currently on o2 at 3L hfnc. 2. Afib with rvr currently rate controlled. 3. deconditioning. Recommendations 1. wean prednisone as written. 2. Antiarrythmics per cardiology. 3.Apixaban per cardiology. 4. continue home oxygen. 5. Suggest Rehab consult for deconditiong 6. suggest out patient Pulmonary Rehab 7. Discharge planing per attending physician. Critical Care: Critically Ill Patient Time spent with patient (mins): 25 FAIZA MURGUIA MD Feb 08, 2021 09:34
--- NOTE | 2021-02-08 10:35 | Physical Therapy Daily Note ---
PT Daily Note-Current Subjective Patient agrees to PT. Mental Status Patient Orientation: Normal For Age Attachments: Oxygen (3L), Cash Catheter Transfers SCALE: Activities may be completed with or without assistive devices. 3-Kboajzqxdt-peibpkw completes the activity by him/herself with no assistance from a helper. 5-Set-up or Clean-up Assistance-helper sets up or cleans up; patient completes activity. [place] assists only prior to or following the activity. 4-Supervision or Touching Assistance-helper provides verbal cues and/or touching/steadying and/or contact guard assistance as patient completes activity. Assistance may be provided throughout the activity or intermittently. 3-Partial/Moderate Assistance-helper does LESS THAN HALF the effort. [place] lifts, holds or supports trunk or limbs, but provides less than half the effort. 2-Substantial/Maximal Assistance-helper does MORE THAN HALF the effort. [place] lifts or holds trunk or limbs and provides more than half the effort. 8-Ghkmmdlta-nfvckx does ALL the effort. Patient does none of the effort to complete the activity. Or, the assistance of 2 or more helpers is required for the patient to complete the activity. If activity was not attempted, code reason: 7-Patient Refused. 9-Not Applicable-not attempted and the patient did not perform the activity before the current illness, exacerbation or injury. 10-Not Attempted due to Environmental Limitations-(lack of equipment, weather restraints, etc.). 88-Not Attempted due to Medical Conditions or Safety Concerns. Sit to Stand (QC): 1 (x 2 /x 4 sets with patient unable to attain full standing position to FWW) Exercises Seated Therapy Exercises: Ankle pumps, Long arc quads, Hip flexion, Hip abd/add Seated Reps: 15 Standing: Sit to Stand (x 4 attempts to FWW) Assessment Current Status: Poor Progress Patient continues to require sit to stand lift due to inability to attain standing position to FWW with assist of 2. Patient voices frustration and states he's getting better. PT to increase activity as tolerated by patient. PT Penitentiary Goals Penitentiary Goals PT Penitentiary Goals Time Frame: Feb 17, 2021 Roll Left & Right (QC): 3 (modA) Sit to Lying (QC): 3 (modA) Lying-Sitting on Side/Bed(QC): 3 (modA) Chair/Zsm-xj-Rviui Xfer(QC): 3 (modA) PT Plan Treatment/Plan Treatment Plan: Continue Plan of Care Treatment Plan: Bed Mobility, Education, Functional Activity Rosy, Functional Strength, Gait, Safety, Therapeutic Exercise, Transfers Treatment Duration: Feb 17, 2021 Frequency: 6 times per week Estimated Hrs Per Day: .25 hour per day Patient and/or Family Agrees t: Yes Time/GCodes Time In: 1015 Time Out: 1030 Total Billed Treatment Time: 15 Total Billed Treatment 1 visit EX 15 min SUSANA SPENCE PT Feb 08, 2021 10:35
--- NOTE | 2021-02-08 11:57 | Occupational Ther Daily Note ---
OT Current Status-Daily Note Subjective Pt alert, sitting in w/c. Pt frustrated that he doesn't know his plan of care and wants to go home. PT educated pt on how he needs to be able to stand and take steps for transfers and ambulation before he could go home safely. Mental Status/Objective Patient Orientation: Person, Place, Time, Situation Attachments: Cash Catheter, IV, Oxygen ADL-Treatment Therapy Code Descriptions/Definitions Functional [place] Measure: 0=Not Assessed/NA 4=Minimal Assistance 1=Total Assistance 5=Supervision or Setup 2=Maximal Assistance 6=Modified [place] 3=Moderate Assistance 7=Complete IndependenceSCALE: Activities may be completed with or without assistive devices. 6-Nbvdtrlmni-gtfzqmp completes the activity by him/herself with no assistance from a helper. 5-Set-up or Clean-up Assistance-helper sets up or cleans up; patient completes activity. [place] assists only prior to or following the activity. 4-Supervision or Touching Assistance-helper provides verbal cues and/or touching/steadying and/or contact guard assistance as patient completes activity. Assistance may be provided throughout the activity or intermittently. 3-Partial/Moderate Assistance-helper does LESS THAN HALF the effort. [place] lifts, holds or supports trunk or limbs, but provides less than half the effort. 2-Substantial/Maximal Assistance-helper does MORE THAN HALF the effort. [place] lifts or holds trunk or limbs and provides more than half the effort. 8-Rqoalgobe-uilwrf does ALL the effort. Patient does none of the effort to complete the activity. Or, the assistance of 2 or more helpers is required for the patient to complete the activity. If activity was not attempted, code reason: 7-Patient Refused. 9-Not Applicable-not attempted and the patient did not perform the activity before the current illness, exacerbation or injury. 10-Not Attempted due to Environmental Limitations-(lack of equipment, weather restraints, etc.). 88-Not Attempted due to Medical Conditions or Safety Concerns. Other Treatment Max A x2 for pt to complete sit to stands 4x. Pt was only able to stand ~5 sec using FWW before plopping back into chair. Pt frustrated and stated that he has a lift chair at home that he can stand from. Pt also stated that he has a 4WW, unsafe for pt at this time, and a w/c that the does not want him to use. After therapy, pt sitting in recliner with call light/phone in reach. All needs met in room. OT Homeworker Goals Homeworker Goals Time Frame: Feb 16, 2021 Eating (QC): 6 Oral Hygiene (QC): 6 Toileting Hygiene (QC): 4 Shower/Bathe Self (QC): 3 Upper Body Dressing (QC): 4 Lower Body Dressing (QC): 3 1=Demonstrate adherence to instructed precautions during ADL tasks. 2=Patient will verbalize/demonstrate understanding of assistive devices/modifications for ADL. 3=Patient will improve strength/tolerance for activity to enable patient to perform ADL's. OT Education/Plan Problem List/Assessment Assessment: Decreased Activ Tolerance, Decreased Safety Aware, Decreased UE Strength, Dependent Transfers, Impaired Bed Mobility, Impaired Self-Care Skills Discharge Recommendations Plan/Recommendations: Continue POC Treatment Plan/Plan of Care Patient would benefit from OT for education, treatment and training to promote independence in ADL's, mobility, safety and/or upper extremity function for ADL's. Plan of Care: ADL Retraining, Functional Mobility, UE Funct Exercise/Act Treatment Duration: Feb 16, 2021 Frequency: 5 times per week Estimated Hrs Per Day: .25 hour per day Rehab Potential: Guarded Time/GCodes Start Time: 10:15 Stop Time: 10:30 Total Time Billed (hr/min): 15 Billed Treatment Time 1 visit-FA 1 (15 min) ZAK BOYD Feb 08, 2021 11:57
[2021-02-08 14:49] VITALS: BP 101/68
[2021-02-08] MEDS ORDERED: MICO90PO TOP (16:13)
[2021-02-08] MEDS ORDERED: PRD10T PO (16:13)
[2021-02-08] MEDS ORDERED: DILT-27 PO (16:13)
[2021-02-08] MEDS ORDERED: DIGO250T15 PO (16:13)
[2021-02-08] MEDS ORDERED: FURO40TA4 PO (16:13)
--- NOTE | 2021-02-08 16:21 | D/C HH Face to Face Order ---
D/C Face to Face Orders Instructions for Patient Via [facility], Patient Instructions/FollowUp: Follow up with Cardiology as directed. Follow up with primary provider within one week of discharge. Physician to follow Patient: Jignesh Nelson APRN Discharge Diet for Home: Cardiac Diet Patient Problems: Atrial fibrillation s/p pneumonia COPD HTN Debility Patient Data-Allergies,Ht & Wt Patient Allergies: Coded Allergies: gabapentin (Verified Adverse Reaction, Mild, UPSET STOMACH, 10/27/18) naproxen (Verified Adverse Reaction, Mild, GI UPSET, 10/27/18) Height (Feet): 6 Height (Inches): 2.00 Weight (Pounds): 263 Weight (Ounces): 3.0 Home Health Need/Face to Face Date of Face to Face: Feb 08, 2021 Clinical Findings: Instability, Muscle weakness, Shortness of breath I have seen Pt mbea-yr-[id number]: Yes Discharged To: Home Diagnosis/Conditions: Atrial fibrillation s/p pneumonia COPD HTN Debility Patient is Homebound due to: [place] fall risk due to instabilty Homebound Status Due to the above stated illness, injury or surgical procedure (medical condition or diagnosis) and associated clinical findings, the patient is homebound because of his/her inability to leave home except with aid of a supportive device and/or person AND leaving the home requires a considerable and taxing effort or is medically contraindicated. Pt req the following assistanc: Aid of another person Home Health Nursing Orders Home Health Services Order: Nursing Services, Physical Therapy-Evaluate & Treat, Wound Care-Eval/Treat Therapy Orders Therapy Orders: Physical Therapy, PT to assess for OT Certify Stmt I certify that this patient is under my care and that I, a nurse practitioner or a physician; a home health assistant working with me, had a face to face encounter that - meets the physician face to face encounter requirements with this patient as dated. TIM VELAZCO MD Feb 08, 2021 16:19
--- NOTE | 2021-02-08 16:23 | Discharge Summary ---
Discharge Summary Hospital Course Problems/Diagnosis: (1) Atrial fibrillation with RVR Status: Acute Assessment & Plan: Appreciate Cardiology recommendations, has been requiring cardizem drip, increasing PO meds as needed. 02/06 transferring to floor, per Cardiology started on digoxin as unable to increase cardizem further due to BP. 02/07 overall improved rate control, on anticoagulation, okay per Cardiology for d/c from cardiac standpoint. (2) Acute and chronic respiratory failure with hypoxia Status: Acute Assessment & Plan: Initially requiring intubation, has been weaned down on support and is on 6 lpm today, baseline of 3 lpm at home. On home O2 at d/c. (3) Bilateral pneumonia Status: Acute Assessment & Plan: - Completed IV antibiotics for presumed PNA Qualifiers: Qualified Codes: J18.9 - Pneumonia, unspecified organism (4) COPD exacerbation Status: Acute Assessment & Plan: - Solumedrol from 01/28-02/03, prednisone 50 mg daily 02/04 and 02/05, tapered on d/c. (5) HTN (hypertension) Status: Chronic Qualifiers: Qualified Codes: I10 - Essential (primary) hypertension (6) Tobacco abuse Status: Chronic (7) Elevated d-dimer Status: Acute Assessment & Plan: Venous dopplers LE bilaterally negative, on apixaban. (8) Elevated LFTs Status: Acute Assessment & Plan: Liver US with normal liver, but bile duct, pancreas not well seen. Hep C neg. Bilirubin still trending up 02/05, consider CT abdomen if persistent. Repeat LFT pending. 02/07 trended down (9) Debility Assessment & Plan: 02/07- Unable to transfer today, difficulty with getting legs into bed. Will continue PT, he wants to go home, but his physical functioning does not appear safe for home d/c today. 02/08 patient still with very poor mobility, concern for home safety but he declines placement anywhere. IRF eval done, does not qualify, cannot complete required hours. Discharged home with home health per his declination of other services. Hospital Course Date of Admission: Jan 25, 2021 at 08:28 Admission Diagnosis : Family Physician/Provider: [place]/[facility] Date of Discharge: 02/08/21 Discharge Diagnosis: See problem list Hospital Course: See problem list Labs and Pending Lab Test: Laboratory Tests 02/07/21 20:24: Glucometer 225H 02/08/21 05:20: Glucometer 189H 02/08/21 12:12: Glucometer 289H 02/08/21 15:27: Glucometer 305H Microbiology 01/25/21 Gram Stain - Final, Complete 01/25/21 Sputum Culture - Final, Complete Haemophilus influenza Usual upper respiratory andrew 01/25/21 Blood Culture - Final, Complete No growth 01/25/21 Urine Culture - Final, Complete NO GROWTH Home Meds Active Lotrimin AF (Miconazole Nitrate) 90 Gm Powder 0 Gm TOP BID Prednisone 10 Mg Tab 10 Mg PO UD Take 3 tabs daily x 1day, 2 tabs daily x 1 day, then 1 tab daily x 1 day, then d/c. Diltiazem 24Hr ER (Diltiazem HCl) 120 Mg Cap.er.24h 120 Mg PO DAILY@1700 Digox (Digoxin) 250 Mcg Tablet 0.25 Mg PO DAILY Furosemide 40 Mg Tablet 40 Mg PO DAILY Reported Tylenol Extra Strength (Acetaminophen) 500 Mg Tablet 1,000 Mg PO Q8H PRN Diltiazem ER (Diltiazem HCl) 180 Mg Capsule.er 360 Mg PO DAILY TAKES 2 (180MG) CAPS Tizanidine HCl 4 Mg Tablet 4 Mg PO DAILY PRN Trelegy Ellipta 200-62.5-25 (Fluticasone/Umeclidin/Vilanter) 1 Each Blst.w.dev 1 Puff INH DAILY Metoprolol Succinate 100 Mg Tab.er.24h 100 Mg PO DAILY Potassium Chloride 10 Meq Capsule.er 10 Meq PO BID Eliquis (Apixaban) 5 Mg Tablet 5 Mg PO BID Proair Hfa (Albuterol Sulfate) 1 Puff Puff 2 Puff IH Q4H PRN Assessment/Pt DC Instructions See problem list Discharge Physical Examination Allergies: Coded Allergies: gabapentin (Verified Adverse Reaction, Mild, UPSET STOMACH, 10/27/18) naproxen (Verified Adverse Reaction, Mild, GI UPSET, 10/27/18) General Appearance: No Apparent Distress, Obese Respiratory: Lungs Clear, Normal Breath Sounds Cardiovascular: Irregularly Irregular Extremity: Other (erythematous, scaling legs with trace edema bilaterally) Neurologic/Psychiatric: Alert, Oriented x3, Normal Mood/Affect Clinical Quality Measures AMI/AHF: Ejection Fraction %: 55 TIM VELAZCO MD Feb 08, 2021 16:23
[2021-02-08] MEDS: dilTIAZem120 MG (CARDIZEM CD) CAP PO SCH (16:38)
[2021-02-11] MEDS ORDERED: predniSONE 20 MG TAB PO SCH (07:00)
[2021-02-15] MEDS ORDERED: predniSONE 10 MG TAB PO SCH (07:00)
--- NOTE | 2021-02-16 11:28 | Physician Query Clarification ---
PQ-Uncertain Diagnosis Admission/Discharge Admission Date: Jan 25, 2021 at 08:28 Discharge Date: Feb 08, 2021 at 18:30 Dr. Lemus, The medical record reflects the following clinical scenario: History/Risk Factors: pneumonia, acute on chronic respiratory failure hypoxia/hypercapnia, COPD AE Clinical Findings: WBC 15.4, Lactic acid 2.90, T 37.0, P 161, R 21 Treatment: IV Cefepime Question: Is sepsis a clinically valid diagnosis? Sepsis was documented in the 01/25 pulmonary consult report with no further documentation in the medical record. Please document a response in Progress Note or Discharge Summary. 1. Yes, clinically valid, condition resolved. 2. No, condition ruled out. 3. Other, with explanation of clinical findings. 4. Undetermined, no explanation for clinical findings. PHYSICIAN RESPONSE Diagnosis clinically valid: Yes, Conditon resolved Please remember a lack of response to the above will prompt a phone page by CDI/Coding staff. In responding to this query, please exercise your independent professional judgment. The purpose of this communication is to more accurately reflect the complexity of your patients condition. The fact that a question is asked does not imply that any particular answer is desired or expected. Thank you for your timely response to this clarification. Requestors name: Eder THIS PHYSICIAN QUERY FORM IS A PERMANENT PART OF THE MEDICAL RECORD EDER [place] Feb 16, 2021 11:28 TIM LEMUS MD Feb 26, 2021 13:04
== END 2021-02-08 18:30 | disposition home health service (06) | DRG 870 ==
LOC: EDUNIT# 06:31 → ER 06:33 → ICU 08:28 → 4TH 02-06 12:15
PROVIDERS: ADMIT Family Medicine; ATTEND Family Medicine
PROC: 5A1955Z Respiratory Ventilation, Greater than 96 Consecutive Hours (ICD-10-PCS; principal; 2021-01-25)
PROC: 0BH17EZ Insertion of Endotracheal Airway into Trachea, Via Natural or Artificial Opening (ICD-10-PCS; 2021-01-25)
PROC: 5A09357 Assistance with Respiratory Ventilation, Less than 24 Consecutive Hours, Continuous Positive Airway Pressure (ICD-10-PCS; 2021-01-25)
DX: A41.9 Sepsis, unspecified organism (principal); J18.9 Pneumonia, unspecified organism; J96.21 Acute and chronic respiratory failure with hypoxia; J96.22 Acute and chronic respiratory failure with hypercapnia; J44.0 Chronic obstructive pulmonary disease with (acute) lower respiratory infection; J44.1 Chronic obstructive pulmonary disease with (acute) exacerbation; Z68.41 Body mass index [BMI] 40.0-44.9, adult; I48.92 Unspecified atrial flutter; Z99.11 Dependence on respirator [ventilator] status; Z20.822 Contact with and (suspected) exposure to COVID-19; E66.01 Morbid (severe) obesity due to excess calories; I48.0 Paroxysmal atrial fibrillation; Z79.01 Long term (current) use of anticoagulants; Z79.899 Other long term (current) drug therapy; I10 Essential (primary) hypertension; E87.5 Hyperkalemia; Z91.19 Patient's noncompliance with other medical treatment and regimen; R53.81 Other malaise; D72.829 Elevated white blood cell count, unspecified; T38.0X5A Adverse effect of glucocorticoids and synthetic analogues, initial encounter; R31.9 Hematuria, unspecified; K59.00 Constipation, unspecified; R73.9 Hyperglycemia, unspecified; K21.9 Gastro-esophageal reflux disease without esophagitis; G89.29 Other chronic pain; M54.9 Dorsalgia, unspecified; I89.0 Lymphedema, not elsewhere classified; I87.2 Venous insufficiency (chronic) (peripheral); G47.33 Obstructive sleep apnea (adult) (pediatric); L98.9 Disorder of the skin and subcutaneous tissue, unspecified; E80.6 Other disorders of bilirubin metabolism; E83.41 Hypermagnesemia; Z82.49 Family history of ischemic heart disease and other diseases of the circulatory system
CPT/HCPCS: 36415; 36556; 36600; 71045; 74018; 74019; 76700; 80048; 80053; 80076; 80162; 81000; 82248; 82805; 82947; 83605; 83735; 83880; 84100; 84478; 84484; 85007; 85025; 85027; 85379; 85610; 85730; 86141; 86803; 87040; 87070; 87077; 87088; 87185; 87205; 87636; 93005; 93970; 94002; 94003; 94640; 94660; 94760; 94799; 96361; 96374; 99291

== ENCOUNTER 2021-03-21 22:22 | Emergency (ER) | payer MEDICAID ==
[~2021-03-21] VITALS: Ht 187 cm; Wt 117.9 kg
[~2021-03-21 22:22] MED LIST changes: +DIGO250T15 PO; +DILT-27 PO; +DILT180C82 PO; +FLUT1BLS15 INH; +MICO90PO TOP; +TIZA-186 PO
[2021-03-21 22:38] LABS: BASOPHILS # (AUTO) 0.1 10^3/uL (0.0-0.1); BASOPHILS % (AUTO) 1 % (0-10); EOSINOPHILS # (AUTO) 0.3 10^3/uL (0.0-0.3); EOSINOPHILS % (AUTO) 3 % (0-10); HEMATOCRIT 41 % (40-54); HEMOGLOBIN 12.7 g/dL (13.3-17.7); LYMPHOCYTES # (AUTO) 3.8 10^3/uL (1.0-4.0); LYMPHOCYTES % (AUTO) 41 % (12-44); MEAN CORPUSCULAR HEMOGLOBIN 27 pg (25-34); MEAN CORPUSCULAR HGB CONC 31 g/dL (32-36); MEAN CORPUSCULAR VOLUME 89 fL (80-99); MEAN PLATELET VOLUME 10.3 fL (9.0-12.2); MONOCYTES # (AUTO) 1.5 10^3/uL (0.0-1.0); MONOCYTES % (AUTO) 16 % (0-12); NEUTROPHILS # (AUTO) 3.6 10^3/uL (1.8-7.8); NEUTROPHILS % (AUTO) 39 % (42-75); PLATELET COUNT 185 10^3/uL (130-400); WHITE BLOOD COUNT 9.2 10^3/uL (4.3-11.0)
[2021-03-21 22:50] LABS: ALBUMIN 3.5 GM/DL (3.2-4.5); CHLORIDE 95 MMOL/L (98-107); POTASSIUM 4.2 MMOL/L (3.6-5.0); SODIUM 135 MMOL/L (135-145)
[2021-03-21 22:51] LABS: CALCIUM 8.5 MG/DL (8.5-10.1)
[2021-03-21 22:52] LABS: GLUCOSE 179 MG/DL (70-105); TOTAL PROTEIN 6.7 GM/DL (6.4-8.2)
[2021-03-21 22:53] LABS: CARBON DIOXIDE 29 MMOL/L (21-32)
[2021-03-21 22:54] LABS: BILIRUBIN,TOTAL 0.3 MG/DL (0.1-1.0)
[2021-03-21 22:56] LABS: ALKALINE PHOSPHATASE 80 U/L (40-136); CREATININE SERUM 0.76 MG/DL (0.60-1.30); GFR ESTIMATED 104
[2021-03-21 22:57] LABS: BUN/CREATININE RATIO 12
[2021-03-21 22:59] LABS: ALANINE AMINOTRANSFERASE 12 U/L (0-55); MAGNESIUM 1.8 MG/DL (1.6-2.4)
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
[2021-03-21 23:08] LABS: AMPHETAMINE SCREEN, URINE NEGATIVE (NEGATIVE); BARBITURATE SCREEN URINE NEGATIVE (NEGATIVE); BENZODIAZEPINES SCREEN URINE NEGATIVE (NEGATIVE); CANNABINOID SCREEN, URINE NEGATIVE (NEGATIVE); COCAINE SCREEN URINE NEGATIVE (NEGATIVE); METHADONE STAT NEGATIVE (NEGATIVE); METHAMPHETAMINE SCREEN URINE S NEGATIVE (NEGATIVE); OPIATE SCREEN URINE NEGATIVE (NEGATIVE); OXYCODONE STAT NEGATIVE (NEGATIVE); PROPOXYPHENE STAT NEGATIVE (NEGATIVE); TRICYCLIC ANTIDEPRESSANTS SCRE NEGATIVE (NEGATIVE)
[2021-03-21] MEDS ORDERED: DIGOXIN 0.25 MG/ML (LANOXIN) 2 ML AMP IV ONE (23:15)
[2021-03-21] MEDS ORDERED: LORazepam INJ 2 MG/ML (ATIVAN) VIAL IVP ONE (23:15)
[2021-03-21 23:19] LABS: TSH (THYROID ANALYZER) 2.73 UIU/ML (0.35-4.94)
--- NOTE | 2021-03-21 23:37 | Diagnostic Imaging Report ---
HISTORY: Atrial fibrillation COMPARISON: 02/01/2021 TECHNIQUE: Frontal view of the chest FINDINGS: There is mild central vascular congestion and bibasilar airspace opacities. No large effusion or pneumothorax is seen. The cardiac silhouette is normal in size. IMPRESSION: 1. Mild central vascular congestion. Bibasilar airspace opacities likely represent atelectasis. Dictated by: Dictated on workstation # [id number]
[2021-03-22] MEDS ORDERED: NS IV 1000 ML 1,000 ML IV SCH (00:15)
[2021-03-22 01:00] VITALS: BP 137/84
== END 2021-03-22 01:03 ==
LOC: EDUNIT# 22:22 → ER 22:24
DX: I48.20 Chronic atrial fibrillation, unspecified (principal); F41.9 Anxiety disorder, unspecified; R89.2 Abnormal level of other drugs, medicaments and biological substances in specimens from other organs, systems and tissues; G47.30 Sleep apnea, unspecified; J44.9 Chronic obstructive pulmonary disease, unspecified; I11.0 Hypertensive heart disease with heart failure; I50.9 Heart failure, unspecified; Z87.891 Personal history of nicotine dependence; Z79.01 Long term (current) use of anticoagulants
CPT/HCPCS: 36415; 71045; 80053; 80162; 80306; 83735; 83880; 84443; 84484; 85025; 93005; 93041

== ENCOUNTER → 2022-11-01 | Outpatient (CLI) | payer MEDICAID ==
[~2022-11-01] VITALS: Ht 187 cm; Wt 115.0 kg
[~2022-11-01] MED LIST changes: +ALBU8.5H6 IH; +CATHETER FLUSH 10 ML SYR IVP PRN; +DILT180C71 PO; -DILT180C82 PO; -POTA10CA43 PO; +POTA10CA44 PO; +REGADENOSON 0.4 MG/5 ML SYR (LEXISCAN) IV ONE; -RT-ALBUINH IH; +meTOprolol 5 MG/5 ML (LOPRESSOR) VIAL IV ONE; +meTOprolol 5 MG/5 ML (LOPRESSOR) VIAL ONE
[2022-11-01 09:22] VITALS: BP 113/79
--- NOTE | 2022-11-05 01:23 | STRESS TEST ---
DATE OF SERVICE: 11/01/2022 RESTING AND POST REGADENOSON TECHNETIUM-99M TETROFOSMIN SPECT CT IMAGING ORDERING PHYSICIAN: Ilene Hawkins APRN. PRIMARY PHYSICIAN: Dr. Robert Pritchard CLINICAL DIAGNOSIS: Atrial fibrillation. Baseline images were carried out after injection of 10.72 mCi of technetium-99m tetrofosmin for resting images. This was followed by 0.4 mg regadenoson and 31 mCi of technetium-99m tetrofosmin for stress imaging. The electrocardiogram showed atrial fibrillation throughout the study and it did not change significantly with regadenoson infusion. Ventricular response was somewhat rapid averaging around 120 beats per minute. Review of images at rest and following stress indicate a relatively small transient apical perfusion defect. Gated images show normal regional wall motion and normal left ventricular systolic function with a calculated ejection fraction of 65%. CONCLUSIONS: 1. This study is indicative of a small to moderate amount of apical ischemia (SDS 7). 2. Normal regional wall motion. 3. Normal global left ventricular systolic function with a calculated ejection fraction of 65%. Job ID: [id number] DocumentID: [id number] Dictated Date: 11/04/2022 20:33:42 Tree Trimmer Helper Date: 11/05/2022 01:22:00 Dictated By: EULA COLLAZO MD; DERRICK; FACP; FACC;
== END ==
LOC: CARD 08:45
PROVIDERS: ATTEND Nurse Practitioner Family
DX: I48.92 Unspecified atrial flutter (principal); R06.09 Other forms of dyspnea
CPT/HCPCS: 78452; 93017

== ENCOUNTER → 2023-02-24 | Outpatient (CLI) | payer MEDICAID ==
[~2023-02-24] MED LIST changes: -CATHETER FLUSH 10 ML SYR IVP PRN; -POTA10CA44 PO; +POTA10CA84 PO; -REGADENOSON 0.4 MG/5 ML SYR (LEXISCAN) IV ONE; -meTOprolol 5 MG/5 ML (LOPRESSOR) VIAL IV ONE; -meTOprolol 5 MG/5 ML (LOPRESSOR) VIAL ONE
== END ==
LOC: CARD 14:07
PROVIDERS: ATTEND Internal Medicine
DX: I51.7 Cardiomegaly (principal); I34.0 Nonrheumatic mitral (valve) insufficiency; I48.91 Unspecified atrial fibrillation; I48.92 Unspecified atrial flutter
CPT/HCPCS: 93306

== ENCOUNTER → 2023-03-27 | Outpatient (CLI) | payer MEDICAID ==
[2023-03-27 12:54] LABS: HEMATOCRIT 54 % (40-54); HEMOGLOBIN 17.5 g/dL (13.3-17.7); MEAN CORPUSCULAR HEMOGLOBIN 29 pg (25-34); MEAN CORPUSCULAR HGB CONC 32 g/dL (32-36); MEAN CORPUSCULAR VOLUME 89 fL (80-99); MEAN PLATELET VOLUME 10.6 fL (9.0-12.2); PLATELET COUNT 193 10^3/uL (130-400); WHITE BLOOD COUNT 10.7 10^3/uL (4.3-11.0)
[2023-03-27 13:15] LABS: ALBUMIN 4.5 GM/DL (3.2-4.5); BILIRUBIN,TOTAL 0.6 MG/DL (0.1-1.0); CALCIUM 9.6 MG/DL (8.5-10.1); CREATININE SERUM 1.11 MG/DL (0.60-1.30); MAGNESIUM 2.1 MG/DL (1.6-2.4); POTASSIUM 4.2 MMOL/L (3.6-5.0); TOTAL PROTEIN 8.3 GM/DL (6.4-8.2)
== END ==
LOC: LAB 12:40
PROVIDERS: ATTEND Internal Medicine Cardiovascular Disease
DX: I48.0 Paroxysmal atrial fibrillation (principal); J43.8 Other emphysema; I10 Essential (primary) hypertension; Z98.890 Other specified postprocedural states; Z72.0 Tobacco use; R94.39 Abnormal result of other cardiovascular function study; R06.09 Other forms of dyspnea
CPT/HCPCS: 36415; 80053; 80061; 83735; 84443; 85027